=== PATIENT | female | born 1955 ===

== ENCOUNTER 2024-08-23 18:37 | Outpatient (BNV) | payer MEDICARE, MEDICAID, SELFPAY | END 2024-10-28 09:50 | PROVIDERS: Admitting Provider Social Worker; Visit Provider Radiology Diagnostic Radiology | DX: K59.00 Constipation, unspecified (principal) | CPT/HCPCS: 74018 ==

== ENCOUNTER 2024-08-23 18:37 | Inpatient (IN) | payer MEDICARE, MEDICAID, SELFPAY ==
--- NOTE | ~2024-08-23 | XR_ITS ---
EXAMINATION: XR ABDOMEN KUB CLINICAL INDICATION: ? impaction COMPARISON: None available. TECHNIQUE: AP view of the abdomen. FINDINGS: Abundant stool throughout the large intestine. No intestinal dilatation. No air-fluid levels. Patient's large body habitus. Mild S-shaped curvature of the thoracolumbar spine XR/XR KUB IMPRESSION: Abundant stool without intestinal obstruction pattern. Electronically signed by: Audie Uribe MD 10/28/2024 10:02 AM EDT
--- NOTE | ~2024-08-23 | CT_ITS ---
EXAMINATION: CT HEAD WITHOUT IV CONTRAST HISTORY: cognitive decline. TECHNIQUE: Unenhanced helical CT of the head was performed per standard departmental protocol. Coronal and sagittal reformats of the head were also evaluated. One or more of the following techniques was used for dose reduction: Automated exposure control, adjustment of the mA and/or kV according to patient size, use of iterative reconstruction technique. DLP: 711 mGy-cm COMPARISON: There are no prior studies for comparison. FINDINGS: BRAIN: There is mild prominence of the jugular system and cortical sulci, consistent with atrophy, appropriate for the patient's age. Willard/white differentiation is normal. There is no hydrocephalus. There is no mass effect or midline shift. No intra- or extra-axial fluid collections are identified. SINUSES: The visualized paranasal sinuses are clear. The mastoid air cells and middle ear cavities are well pneumatized. ORBITS: The visualized orbits are unremarkable. BONES/SOFT TISSUES: The extracranial soft tissues are unremarkable. The calvarium is intact. No suspicious lytic or sclerotic lesions. CT/CT head/brain wo IV con IMPRESSION: No acute intracranial abnormality. Electronically signed by: Cj Colunga MD 08/25/2024 12:12 PM [facility]
[2024-08-23 19:27] VITALS: BP 132/75; PULSE 72; RESP 18; TEMP 208.9; TEMP 98.3; O2SAT 96
[2024-08-23 19:29] VITALS: BMI 20.3
--- OUTSIDE RECORDS SUMMARY | 2024-08-23 20:06 | XMS_ITS | Encounter Summary ---
Author Organization [employer] Address [address] [facility] 7t [place] [address] Care Team Providers Care Swimmer Name Role Phone Stan Rodriguez DNP Primary Care Provider Perlita Pryor Unavailable Unavailable Encounter Details Date Type Department Care Team (Late st Contact Info) Description 03/18/2024 Telephone [facility] [address] [facility] [address] [place] [address] Stan Rodriguez DNP [address] [place] [address] Social History Tobacco Use Types Packs/Day Years Used Date Smoking Tobacco: Never Passive Smoke Exposure: Never Smokeless Tobacco: Never Comments:02/17/23 Comments Unknown Sex and Gender Information Value Date Recorded Sex Assigned at Female 09/16/2022 3:00 PM EDT Legal Sex Female 6:21 PM EDT Gender Identity Female 05/09/2022 9:08 PM EST Sexual Orientation Straight 05/09/2022 9: 08 PM EST documented as of this encounter Miscellaneous Notes * Telephone Encounter - Monica Lynn RN - 03/18/2024 3:44 PM EDT I spoke with pts daughter she states that mom has an area around her belly button that is red, has white discharge coming from it and has an an odor. Denies fever. Has not tried abx cream for it. Daughter states she doesn't think it has been there long but mother states its been like that for 3 years. Also daughter states that she thinks mom has Hemmheroid. She states there is often blood in the toilet, mom complains of rectal burning and this has gone on for quite some time. Daughter denies use of prep H or similar products. Appt made to be seen * Telephone Encounter - Suyapa Finch - 03/18/2024 3:27 PM EDT Daughter milagro calling for the mom as pt has an infection in the belly button red oozing white stuff , odor and is burning and is also blood on the toilet seat from rectal area. Daughter does havethe mom with her to give verbal permission to speak to us. Call back # [phone] documented in this encounter Plan of Treatment Not on file documented as of this encounter Visit Diagnoses Not on filedocumented in this encounter Care Teams Swimmer Relationship Specialty Start Date End Date Stan Rodriguez DNP [address] [place] [address] PCP - General Family Medicine 04/25/22 Perlita Pryor LLD [address] [place] [address] Dentist 04/25/22 Jenifer Magallaens- [employer] vegetable ii farmworker 04/19/22 [facility] 04/19/22 documented as of this encounter
--- OUTSIDE RECORDS SUMMARY | 2024-08-23 20:06 | XMS_ITS | Encounter Summary ---
Author Organization [employer] Address [address] [place] [address] 7 [place] [address] Care Team Providers Care Manager Women Name Role Phone Stan Rodriguez DNP Primary Care Provider Perlita Pryor Unavailable Unavailable Encounter Details Date Type Department Care Team (Late st Contact Info) Description 09/14/2023 Telephone [facility] [address] [facility] [address] [place] [id number] Stan Rodriguez DNP [address] [place] [address] Social History Tobacco Use Types Packs/Day Years [...] encounter Miscellaneous Notes * Telephone Encounter - True Jewell - 09/14/2023 1:28 PM EDT Provider informs they received the referral we sent and contacted the patient, but she did not wantto schedule anything with them. They wanted to call us to let her PCP know she declined seeing their practice documented in this encounter Plan of Treatment Not on file documented as of this encounter Visit Diagnoses Not on filedocumented in this encounter Care Teams Manager Women Relationship Specialty Start Date End Date Stan Rodriguez DNP [address] [place] [address] PCP - General Family Medicine 04/25/22 Perlita Pryor LLD [address] [place] [address] Dentist 04/25/22 Jenifer Magallanes- [employer] environmental services worker 04/19/22 [facility] 04/19/22 documented as of this encounter
--- OUTSIDE RECORDS SUMMARY | 2024-08-23 20:06 | XMS_ITS | Clinical Summary ---
Author Organization [employer] Address [address] [facility] 7[address] [place] [address] Care Team Providers Care Protection Manager Name Role Phone Stan Rodriguez DNP Primary Care Provider Perlita Pryor Unavailable Unavailable Allergies Active Allergy Reactions Criticality Noted Date Comments Erythromycin Nausea And Vomiting 07/06/2012 Other reaction(s): Nausea, Vomiting, Diarrhea Meperidine 06/30/2017 Morphine 06/30/2017 Sulfamethoxazole-Trimet hoprim Rash Low 07/11/2012 Other reaction(s): Skin Rashes, Hives, trouble breathing, Skin Rashes, Hives, trouble breathing Medications ARIPiprazole (Abilify) 10 MG tablet daily. 9 Active pravastatin (Pravachol) 40 MG tabletIndications:M ixed hyperlipidemia Take 1 tablet (40 mg) by mouth at bedtime. 90 tablet 1 4 Active levothyroxine (Synthroid, Levoxyl) 75 MCG tabletIndications:H ypothyroidism due to Katherine's thyroiditis Take 1 tablet (75 mcg) by mouth before breakfast. 90 tablet 1 4 Active benztropine (Cogentin) 1 MG tabletIndications:B ipolar disorder, current episode mixed, moderate (CMS/HCC) Take 1 tablet (1 mg) by mouth 2 times daily. 180 tablet 1 4 10/04/19 25 Active ARIPiprazole (Abilify) 10 MG tabletIndications:B ipolar disorder, current episode mixed, moderate (CMS/HCC) Take 1 tablet (10 mg) by mouth Once per day. 90 tablet 1 4 10/04/19 25 Active Active Problems Problem Noted Date Diagnosed Date Impaired glucose tolerance 07/29/2018 Overview (09/16/2022): Note: A1c is 5.8 Acquired hypothyroidism 10/14/2017 GERD without esophagitis 10/14/2017 Arthritis 11/14/2013 Overview (09/16/2022): Note: left Onychomycosis due to dermatophyte 11/14/2013 Bipolar disorder 10/12/2013 Overview (09/16/2022): Note: [employer] Vitamin D deficiency 07/04/2013 Malignant melanoma of skin 01/23/2013 Overview (09/16/2022): Note: dx 12/2012 Constipation 07/06/2012 Uterine leiomyoma 07/06/2012 Immunizations Name Administration Dates Next Due Influenza injectable quadriv alent IIV4 with preservative 05/17/2014 Influenza, IIV3, injectable 07/09/2012 Influenza, Unspecified 06/24/2013 Social History Tobacco Use Types Packs/Day Years Used Date Smoking Tobacco: Never Passive Smoke Exposure: Never Smokeless Tobacco: Never Tobacco Cessation:Counseling Given: Not Answered Comments:02/17/23 Depression Answer Date Recorded Patient Health Questionnaire-9 Score 23 04/06/2024 Patient Health Questionnaire-9 Score 23 04/06/2024 Last PHQ-9: Questionnaire Data Not on file 1 Depression Answer Date Recorded Patient Health Questionnaire-2 Score 5 04/06/2024 Comments Unknown Sex and Gender Information Value Date Recorded Sex Assigned at Female 09/16/2022 3:00 PM EDT Legal Sex Female 6:21 PM EDT Gender Identity Female 05/09/2022 9:08 PM EST Sexual Orientation Straight 05/09/2022 9: 08 PM EST Last Filed Vital Signs Vital Sign Reading Time Taken Comments Blood Pressure 118/72 04/05/2021 12:51 PM EDT Pulse 76 04/06/2024 1:08 PM EDT Temperature 36.4 ??C (97.6 ??F) 04/06/2024 1:08 PM ED T Respiratory Rate - - Oxygen Saturation 97% 04/06/2024 1:08 PM EDT Inhaled Oxygen Concentration - - Weight 44 kg (97 lb) 04/06/2024 1:08 PM EDT Height 153.7 cm (5' 0.5 ) 04/05/2021 12:51 PM ED T Body Mass Index 18.63 04/05/2021 12:51 PM EDT Plan of Treatment Health Maintenance Due Date Last Done Comments CT Colonography 1956 FIT DNA/Cologuard 1956 FIT 1956 FOBT 1956 SDOH Screening 1956 Sigmoidoscopy 1956 Derm Melanoma Skin Check 1956 Alcohol/Substance Use Screening 1968 Hepatitis C Screening 02/01/1974 Pneumococcal Vaccine: 50+ Years (1 of 1 - PCV) 02/01/2006 Zoster Vaccines (1 of 2) 02/01/2006 Mammogram 10/22/2019 10/21/2017 Colonoscopy 01/24/2023 01/24/2013 Colorectal Cancer Screening 01/24/2023 COVID-19 Vaccine (2 - 2023-2 5 season) 2024 12/05/2020 Influenza Vaccine (#1) 2024 4, 06/24/2013, 07/09/2012 Depression Monitoring (PHQ-9) 10/05/2024, 04/06/2024 Depression Screening 04/06/2025 04/06/2024, 04/06/2024 Tobacco Screening 04/11/2025 04/11/2024 DTaP/Tdap/Td Vaccines (2 - T d or Tdap) 10/15/2027 10/14/2017 RSV Patients and Patients Aged 60 years or older (1 - 1-dose 75+ series) 02/01/2031 HIB Vaccines Aged Out No longer eligi ble based on patient's age to complete this topic HPV Vaccines Aged Out No longer eligi ble based on patient's age to complete this topic Hepatitis A Vaccines Aged Out No long er eligible based on patient's age to complete this topic Hepatitis B Vaccines Aged Out No long er eligible based on patient's age to complete this topic IPV Vaccines Aged Out No longer eligi ble based on patient's age to complete this topic Meningococcal Vaccine Aged Out No dg marcelo eligible based on patient's age to complete this topic RSV under 20 months Aged Out No longe r eligible based on patient's age to complete this topic Rotavirus Vaccines Aged Out No longer eligible based on patient's age to complete this topic Procedures Procedure Name Priority Date/Time Associated Diagnosis Comments COLONOSCOPY Routine 01/24/2013 12:00 AM EDT from Last 3 Months or Most Recently Relevant to Health Maintenance Results * Colonoscopy (01/24/2013 12:00 AM EDT) Anatomical Region Laterality Modality Endoscopy 01/24/2013 Narrative 01/24/2013 12:00 AM EDT Refer to the Notes tab for result details Legacy Procedure: Colonoscopy Procedure Note Provider, Natalie, - 09/20/2022 Refer to the Notes tab for result details Legacy Procedure: Colonoscopy Historical Provider ENDOSCOPY PROCEDURE ORDER CLOTILDE Final Result from Last 3 Months or Most Recently Relevant to Health Maintenance Insurance [facility] Care Teams Protection Manager Relationship Specialty Start Date End Date Stan Rodriguez DNP [address] [place] [address] PCP - General Family Medicine 04/25/22 Perlita Pryor LLD [address] [place] [address] Dentist 04/25/22 Jenifer Magallanes- [employer] unit control worker 04/19/22 [facility] 04/19/22
--- NOTE | 2024-08-23 20:19 | PC.NURSE ---
Pravastin 40 mg not available, patient wants her meds now so that she can go to bed, 2 tablets of pravastatin 20 mg administered to make total dose of 40 mg.
--- NOTE | 2024-08-23 21:07 | PC.NURSE ---
Admission Note Anita Pendleton, 69 years old woman was presented to [facility] ED with chief complaint of failure to thrive after she was found covered in vomit and feces in her apartment. The patient is non-adherent to her medication.? The patient has a medical and psychiatric history of hyperlipidemia, hypothyroidism, and Bipolar I with psychotic features. The patient is full code and her allergy list is updated. Anita arrived at our unit in a stretcher at 1905 on 08/23/24, CV, with an admitting diagnosis of Bipolar I disorder. The patient is alert and oriented x 2,? self and place, pleasant, compliant with the admission process.? Ambulates independently, No history of fall, Denied SI/HI/AVH, endorses depression 10 and anxiety /10,? Vital sign WNL, no visible skin issues observed,? Meds rec completed/approved/MAR active/takes meds whole, reported her elimination intact, last BM was on 08/22/24. Per hospital report independent of ADL but needs some cueing. She is occasionally incontinent of the bladder and wears pull ups. Speech is slow with some difficulty in articulation, Labs are unremarkable, UA negative, Utox negative, treatment plan/safety tool/ release paper all signed and filed, unit orientation completed, contraband searched, patient contracted for the safety, patient is being observed on 5 minute safety check as ordered.?
[2024-08-23 21:32] LABS: Alanine Aminotransferase 18 U/L (0-31); Albumin Level 3.9 g/dL (3.5-5.0); Alkaline Phosphatase 58 U/L (39-117); Anion Gap 14 (12-20); Aspartate Amino Transferase 25 U/L (5-31); Blood Urea Nitrogen 16 mg/dL (9-16); Calcium 9.6 mg/dL (8.4-10.2); Carbon Dioxide 24 mmol/L (22-29); Chloride 107 mmol/L (96-108); Creatinine Clr Calc Pharmacy 62.2; Estimated Glomerular Filt Rate > 60; Potassium 3.8 mmol/L (3.3-5.1); Sodium 141 mmol/L (135-145); Total Protein 7.3 g/dL (6.5-8.0)
[2024-08-24 08:00] VITALS: BP 109/60; PULSE 72; RESP 18; TEMP 36.8; O2SAT 96
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
[2024-08-24 09:42] LABS: Cholesterol 235 mg/dL (<200); HDL Cholesterol 74 mg/dL (>40); Triglycerides 28 mg/dL (<150)
--- NOTE | 2024-08-24 15:06 | P.CONHOSP_ITS ---
History of Present Illness Data of Consult Service Date: 08/24/24 Primary Care Provider: Unknown Physician HPI Reason for consult: Admission H&P Pt is a 69-year-old female with a PMH significant for?HLD, hypothyroidism, unspecified dementia, and bipolar with psychotic features who is admitted to [facility] for worsening forgetfulness and inability to take care of her ADLs. Pt was found by [facility] covered in feces and vomit and with her house in disarray. Medical consult for admission H&P. Pt reports is having some pain in her gums most notably while eating. Otherwise has no acute medical complaints Denies fever, chills, N/V/D, or abd pain. No SOB or difficulty breathing. Denies chest pain/pressure, or palpitations. Labs reviewed, significant for elevated glucose of 152 and mildly elevated cholesterol. Vitals stable and WNL. Review of Systems 2 Review of Systems: Negative except for that which is stated in the HPI. ON LICENSE OF [facility] Medical History (Updated 08/25/24 @ 02:23 by ABRAM Zamudio) Hypothyroid HTN (hypertension) Social History Household Members: None Housing: Apartment Do you presently have visiting nurse or other home services: No Patient Tobacco Use Status: Never used Tobacco e-Cigarette/Vaping Use: Never Used Use of substances other than those prescribed or required for medical reasons: Yes Currently Displaying Signs/Symptoms of Drug Intoxication Withdrawal: No Have you been hit, kicked, punched, or otherwise hurt by someone within the past year? If so, by whom?: No Do you feel safe in your current relationship?: No Is there a partner from a previous relationship who is making you feel unsafe now?: No Advance Directives: No Advance Directives Information Provided: No Do you have thoughts of harming others: None Do you have a plan to hurt others: No Plan Recently lost weight without trying: No Nutrition Risks: No Nutritional Risk Patient : No : No service: No Sexual orientation: Straight/Heterosexual Meds Allergies Allergy/AdvReac Type Severity Reaction Status Date / Time meperidine [From Demerol] AdvReac Intermediate Rash Verified 08/23/24 19:34 morphine AdvReac Intermediate Rash Verified 08/23/24 19:35 Sulfa (Sulfonamide AdvReac Intermediate Rash Verified 08/23/24 19:36 Antibiotics) Active Medications: Current Medications Acetaminophen (Acetaminophen 325 Mg Tablet) 650 mg PO Q6H PRN PRN Reason: Headache/Pain, Scale 1-10 Last Admin: 08/24/24 08:36 Dose: 650 mg Al Hydroxide/Mg Hydroxide (Magnesium Hydrox/Alum Hydrox 30 Ml Oral.Susp) 30 ml PO Q6H PRN PRN Reason: Heartburn/Nausea Aripiprazole (Aripiprazole 10 Mg Tablet) 10 mg PO DAILY [facility] Last Admin: 08/24/24 08:37 Dose: 10 mg Lamotrigine (Lamotrigine 25 Mg Tablet) 25 mg PO DAILY [facility] Last Admin: 08/24/24 08:36 Dose: 25 mg Levothyroxine Sodium (Levothyroxine Sodium 75 Mcg Tablet) 75 mcg PO DAILY@629 [facility] Last Admin: 08/24/24 05:34 Dose: 75 mcg Magnesium Hydroxide (Milk Of Magnesia 30 Ml Oral.Susp) 30 ml PO DAILY PRN PRN Reason: Constipation Olanzapine (Olanzapine Odt 10 Mg Tab.Rapdis) 10 mg TRANSLINGU DAILY PRN PRN Reason: Agitation Pravastatin Sodium (Pravastatin Sodium 40 Mg Tablet) 40 mg PO BEDTIME [facility] Last Admin: 08/23/24 20:19 Dose: 40 mg Trazodone HCl (Trazodone Hcl 50 Mg Tablet) 50 mg PO BEDTIME MRX1 PRN PRN Reason: Insomnia Vitamin D (Cholecalciferol (Vitamin D3) 25 Mcg Tablet) 50 mcg PO DAILY [facility] Last Admin: 08/24/24 08:36 Dose: 50 mcg Home Medications ?Medication ?Instructions ?Recorded ?Confirmed ?Last Taken ?Type aripiprazole 10 mg tablet 10 mg PO DAILY 08/23/24 08/23/24 Unknown History cholecalciferol (vitamin D3) 50 50 mcg PO DAILY 08/23/24 08/23/24 Unknown History mcg (2,000 unit) tablet lamotrigine 25 mg tablet 25 mg PO DAILY 08/23/24 08/23/24 Unknown History levothyroxine 75 mcg tablet 75 mcg PO DAILY@0630 08/23/24 08/23/24 Unknown History olanzapine 10 mg disintegrating 10 mg PO DAILY PRN Agitation 08/23/24 08/23/24 Unknown History tablet pravastatin 40 mg tablet 40 mg PO BEDTIME 08/23/24 08/23/24 Unknown History Physical Exam 2 Vital Signs and Narrative: Vital Signs: Last Vital Signs Temp 98.2 F 08/24/24 08:00 Pulse 72 08/24/24 08:00 Resp 18 08/24/24 08:00 BP 109/60 08/24/24 08:00 Pulse Ox 96 08/24/24 08:00 O2 Del Method Room Air 08/24/24 08:00 BMI result Body Mass Index 20.3 General: AOx2, no acute distress Mouth: Gums erythematous in multiple locations. No evens bleeding or signs of infection or abscess. Resp: CTA bilaterally CVS: S1, S2, RRR GI: +BS, NT, no distention Skin: Warm, dry Neuro: Cranial nerves II-XII grossly intact bilaterally. Motor grossly intact bilaterally Extremities: No edema Psych: Pleasantly confused, cooperative. Results Labs 08/23/24 21:12 Labs: Laboratory Results - last 24 hr 08/23/24 08/24/24 21:12 09:14 Anion Gap 14 Estim Creat Clear Calc 62.2 Estimated GFR > 60 Random Glucose 152 H Calcium 9.6 Total Bilirubin 0.5 AST 25 ALT 18 Alkaline Phosphatase 58 Total Protein 7.3 Albumin 3.9 Triglycerides 28 Cholesterol 235 H LDL Cholesterol, Calc 156 H HDL Cholesterol 74 Assessment and Plan (1) Medical clearance for psychiatric admission: Status: Acute Plan Pt is a 69-year-old female with a PMH significant for?HLD, hypothyroidism, unspecified dementia, and bipolar with psychotic features who is admitted to [facility] for worsening forgetfulness and inability to take care of her ADLs. Pt was found by [facility] covered in feces and vomit and with her house in disarray. Medical consult for admission H&P. Mood disorder Plan as per psychiatry Gingivitis Pt has apparently not been able to take care of self or perform ADLs Encourage oral care, including brushing twice a day and flossing at least once a day Magic mouthwash prn Follow up outpatient with dentist HLD Continue statin Hypothyroidism Continue levothyroxine Thank you for allowing us to participate in the care of this patient. Signing off at this time. Please re-consult if any acute complaints or issues arise.
[2024-08-24 20:00] VITALS: BP 115/65; PULSE 72; RESP 17; TEMP 36.6; O2SAT 98
[2024-08-25 08:00] VITALS: BP 119/63; PULSE 86; RESP 16; TEMP 36.2; O2SAT 99
[2024-08-25 13:30] VITALS: BMI 20.6
[2024-08-25 20:00] VITALS: BP 119/56; PULSE 74; RESP 16; TEMP 36.2; O2SAT 99
--- NOTE | 2024-08-25 21:01 | P.PNPSI_ITS ---
Subjective Subjective Date of Service: 08/25/24 Reason For Visit: bipolar 1 disorder current or most recent epi Subjective Notes: Conditional Voluntary Interim History: Pt slept through the night. She has been taking medications as prescribed. She questions why this commercial loan underwriter has to meet with her daily, as she states she has no concerns and is doing well. She did have head CT which shows atrophy. pending MOCA She denies SI/HI. She also denies visual or auditory hallucinations, but does at times appear internally preoccupied, with some thought blocking. Review of Systems Review of Systems Pt denies chest pain. No abdominal pain. No diarrhea or constipation. Mental Status Exam Mental Status Exam Narrative: Appearance: constricted affect, in NAD, malnourished, very poor dental hygiene (unbothered by it). Behavior: somewhat guarded, Psychomotor: some retardation Speech: mostly clear, delayed response, minimally spontaneous TP: poverty of thought TC: agreeing with not being able to care for herself. Mood: good Affect:constricted SI: none HI: none VH/AH: denies but may be internally preoccupied Delusions: no overt delusional content noted or reported Insight/judgment: impaired x 2. Memory/cog: alert, oriented x 3. pending MOCA/ACL Diagnostics Vital Signs (24Hr): Vital Signs - 24 hr 08/25/24 08:00 Temperature 97.1 F Pulse Rate 86 Respiratory Rate 16 Blood Pressure 119/63 Pulse Oximetry 99 Oxygen Delivery Method Room Air BMI result Body Mass Index 20.6 Labs 08/23/24 21:12 Labs: Laboratory Results - last 48 hr 08/23/24 08/24/24 21:12 09:14 Sodium 141 Potassium 3.8 Chloride 107 Carbon Dioxide 24 Anion Gap 14 BUN 16 Creatinine 0.59 Estim Creat Clear Calc 62.2 Estimated GFR > 60 Random Glucose 152 H Calcium 9.6 Total Bilirubin 0.5 AST 25 ALT 18 Alkaline Phosphatase 58 Total Protein 7.3 Albumin 3.9 Triglycerides 28 Cholesterol 235 H LDL Cholesterol, Calc 156 H HDL Cholesterol 74 Imaging Radiology Impressions: ITS Impressions Head CT 08/25/24 11:33 IMPRESSION: No acute intracranial abnormality. Electronically signed by: Cj Colunga MD 08/25/2024 12:12 [place] [facility] [place] Medications Current Medications Acetaminophen (Acetaminophen 325 Mg Tablet) 650 mg PO Q6H PRN PRN Reason: Headache/Pain, Scale 1-10 Last Admin: 08/24/24 08:36 Dose: 650 mg Al Hydroxide/Mg Hydroxide (Magnesium Hydrox/Alum Hydrox 30 Ml Oral.Susp) 30 ml PO Q6H PRN PRN Reason: Heartburn/Nausea Aripiprazole (Aripiprazole 10 Mg Tablet) 10 mg PO DAILY [facility] Last Admin: 08/25/24 08:48 Dose: 10 mg Lamotrigine (Lamotrigine 25 Mg Tablet) 25 mg PO DAILY [facility] Last Admin: 08/25/24 08:48 Dose: 25 mg Levothyroxine Sodium (Levothyroxine Sodium 75 Mcg Tablet) 75 mcg PO DAILY@0630 [facility] Last Admin: 08/25/24 06:26 Dose: 75 mcg Lidocaine/Diphenhydr/Alum/Mg/Simeth (Mag&Al/Sim/Diphenhyd/Lidocaine 10 Ml Oral.Susp) 10 ml PO Q6H PRN; Protocol PRN Reason: Painful Gums Magnesium Hydroxide (Milk Of Magnesia 30 Ml Oral.Susp) 30 ml PO DAILY PRN PRN Reason: Constipation Olanzapine (Olanzapine Odt 10 Mg Tab.Rapdis) 5 mg TRANSLINGU Q6H PRN PRN Reason: Agitation Pravastatin Sodium (Pravastatin Sodium 40 Mg Tablet) 40 mg PO BEDTIME [facility] Last Admin: 08/25/24 20:33 Dose: 40 mg Trazodone HCl (Trazodone Hcl 50 Mg Tablet) 50 mg PO BEDTIME MRX1 PRN PRN Reason: Insomnia Last Admin: 08/25/24 20:33 Dose: 50 mg Vitamin D (Cholecalciferol (Vitamin D3) 25 Mcg Tablet) 50 mcg PO DAILY [facility] Last Admin: 08/25/24 08:48 Dose: 50 mcg Allergies Allergies Allergy/AdvReac Type Severity Reaction Status Date / Time meperidine [From Demerol] AdvReac Intermediate Rash Verified 08/23/24 19:34 morphine AdvReac Intermediate Rash Verified 08/23/24 19:35 Sulfa (Sulfonamide AdvReac Intermediate Rash Verified 08/23/24 19:36 Antibiotics) Assessment & Plan Assessment & Plan (1) Schizoaffective disorder: Status: Acute Code(s): F25.9 - Schizoaffective disorder, unspecified Plan Ms. Thomas is a 69 year-old woman with hx of Bipolar Disorder, she currently presents with several symptoms suggestive of negative symptoms seem usually in schizoaffective disorder including constricted affect, abulia (some acknowledgment that she needed to initiate certain activities like going to dentist but still not doing so for unclear reasons). No overt paranoid delusions, her delayed response may be signs of thought blocking and underlying psychosis. She is in agreement to receive treatment and complete work up to also assess her memory and cognition. We discussed restarting abilify, which was started while she was in the ED- will titrate dose. 08/[address] shows atrophy. pending MOCA/ACL. continue abilify but may increase and add low dose ativan. Reason for continued inpatient stay Substantial Risk for: inability to function Time Spent With Patient Time: Total time managing care of this patient today ____ minutes.
[2024-08-26] MEDS: Mag&Al/Sim/Diphenhyd/Lidocaine 10 ML ORAL.SUSP PO ×2 (06:03→13:38)
[2024-08-26 08:00] VITALS: BP 107/55; PULSE 88; RESP 16; TEMP 36.9; O2SAT 100
[2024-08-26 10:51] LABS: Hemoglobin A1C 115.4003 umol/L; Total Hemoglobin (HGBA1C) 3371.0961 umol/L
[2024-08-26 11:33] LABS: Folate 15.9 ng/mL (> or = 4.0); Vitamin B12 1235 pg/mL (200-900)
--- NOTE | 2024-08-26 16:59 | P.PNPSI_ITS ---
Subjective Subjective Date of Service: 08/26/24 Reason For Visit: bipolar 1 disorder current or most recent epi Subjective Notes: Conditional Voluntary Interim History: Pt slept through the night. She has been taking medications as prescribed. She questions why this field underwriter has to meet with her daily, as she states she has no concerns and is doing well. She did have head CT which shows atrophy. pending MOCA She denies SI/HI. She also denies visual or auditory hallucinations, but does at times appear internally preoccupied, with some thought blocking. Review of Systems Review of Systems Pt denies chest pain. No abdominal pain. No diarrhea or constipation. Mental Status Exam Mental Status Exam Narrative: Appearance: constricted affect, in NAD, malnourished, very poor dental hygiene (unbothered by it). Behavior: somewhat guarded, Psychomotor: some retardation Speech: mostly clear, delayed response, minimally spontaneous TP: poverty of thought TC: agreeing with not being able to care for herself. Mood: good Affect:constricted SI: none HI: none VH/AH: denies but may be internally preoccupied Delusions: no overt delusional content noted or reported Insight/judgment: impaired x 2. Memory/cog: alert, oriented x 3. pending MOCA/ACL Diagnostics Vital Signs (24Hr): Vital Signs - 24 hr 08/25/24 20:00 08/26/24 08:00 Temperature 97.1 F 98.4 F Pulse Rate 74 88 Respiratory Rate 16 16 Blood Pressure 119/56 L 107/55 L Pulse Oximetry 99 100 Oxygen Delivery Method Room Air Room Air BMI result Body Mass Index 20.6 Labs 08/23/24 21:12 Labs: Laboratory Results - last 48 hr 08/26/24 10:35 Estimat Average Glucose 105 Hemoglobin A1c % 5.3 Vitamin B12 1235 H Folate 15.9 TSH 1.53 Imaging Radiology Impressions: ITS Impressions Head CT 08/25/24 11:33 IMPRESSION: No acute intracranial abnormality. Electronically signed by: Cj Colunga MD 08/25/2024 12:12 PM [facility] Medications Medications Current Medications Acetaminophen (Acetaminophen 325 Mg Tablet) 650 mg PO Q6H PRN PRN Reason: Headache/Pain, Scale 1-10 Last Admin: 08/24/24 08:36 Dose: 650 mg Al Hydroxide/Mg Hydroxide (Magnesium Hydrox/Alum Hydrox 30 Ml Oral.Susp) 30 ml PO Q6H PRN PRN Reason: Heartburn/Nausea Aripiprazole (Aripiprazole 10 Mg Tablet) 10 mg PO DAILY [facility] Last Admin: 08/26/24 08:13 Dose: 10 mg Lamotrigine (Lamotrigine 25 Mg Tablet) 25 mg PO DAILY [facility] Last Admin: 08/26/24 08:13 Dose: 25 mg Levothyroxine Sodium (Levothyroxine Sodium 75 Mcg Tablet) 75 mcg PO DAILY@0630 [facility] Last Admin: 08/26/24 06:01 Dose: 75 mcg Lidocaine/Diphenhydr/Alum/Mg/Simeth (Mag&Al/Sim/Diphenhyd/Lidocaine 10 Ml Oral.Susp) 10 ml PO Q6H PRN; Protocol PRN Reason: Painful Gums Last Admin: 08/26/24 13:38 Dose: 10 ml Magnesium Hydroxide (Milk Of Magnesia 30 Ml Oral.Susp) 30 ml PO DAILY PRN PRN Reason: Constipation Olanzapine (Olanzapine Odt 10 Mg Tab.Rapdis) 5 mg TRANSLINGU Q6H PRN PRN Reason: Agitation Pravastatin Sodium (Pravastatin Sodium 40 Mg Tablet) 40 mg PO BEDTIME [facility] Last Admin: 08/25/24 20:33 Dose: 40 mg Trazodone HCl (Trazodone Hcl 50 Mg Tablet) 50 mg PO BEDTIME MRX1 PRN PRN Reason: Insomnia Last Admin: 08/25/24 20:33 Dose: 50 mg Vitamin D (Cholecalciferol (Vitamin D3) 25 Mcg Tablet) 50 mcg PO DAILY [facility] Last Admin: 08/26/24 08:13 Dose: 50 mcg Allergies Allergies Allergy/AdvReac Type Severity Reaction Status Date / Time meperidine [From Demerol] AdvReac Intermediate Rash Verified 08/23/24 19:34 morphine AdvReac Intermediate Rash Verified 08/23/24 19:35 Sulfa (Sulfonamide AdvReac Intermediate Rash Verified 08/23/24 19:36 Antibiotics) Assessment & Plan Assessment & Plan (1) Schizoaffective disorder: Status: Acute Code(s): F25.9 - Schizoaffective disorder, unspecified Plan Ms. Thomas is a 69 year-old woman with hx of Bipolar Disorder, she currently presents with several symptoms suggestive of negative symptoms seem usually in schizoaffective disorder including constricted affect, abulia (some acknowledgment that she needed to initiate certain activities like going to dentist but still not doing so for unclear reasons). No overt paranoid delusions, her delayed response may be signs of thought blocking and underlying psychosis. She is in agreement to receive treatment and complete work up to also assess her memory and cognition. We discussed restarting abilify, which was started while she was in the ED- will titrate dose. 08/[address] shows atrophy. pending MOCA/ACL. continue abilify but may increase and add low dose ativan. 08/26 will increased abilify to 15mg po daily. will add low dose ativan- wonder if it helps with delayed response, and some staring. Reason for continued inpatient stay Substantial Risk for: inability to function Time Spent With Patient Time: Total time managing care of this patient today ____ minutes.
[2024-08-26 20:00] VITALS: BP 125/59; PULSE 85; RESP 16; TEMP 37.2; O2SAT 98
[2024-08-27] VITALS (9 sets, daily range): BP systolic 103–116; BP diastolic 53–59; PULSE 88–108; RESP 20; TEMP 36.8–39.8; O2SAT 93–97
[2024-08-27 10:04] LABS: MANUAL DIFF FLAG NO
[2024-08-27 10:19] LABS: Hematocrit 33.7 % (37.0-47.0); Hemoglobin 11.8 g/dl (12.0-16.0); Imm Gran Abs Auto 0.03 X10*3/uL (0.00-0.03); Imm Gran Pct Auto 0.4 % (0.0-0.4); Lymphocytes Absolute Auto 0.5 X10*3/uL (1.2-4.9); Mean Corpuscular HGB Conc 35.0 g/dl (31.0-35.0); Mean Corpuscular Hemoglobin 32.2 pg (27.0-33.0); Mean Corpuscular Volume 91.8 fL (80.0-98.0); NRBC Abs Auto 0.000 X10*3/uL (0.0-0.012); NRBC Pct Auto 0.0 /100WBC (0.0-0.2); Platelet Count 224 X10*3/uL (160-400); Red Blood Count 3.67 X10*6/uL (4.20-5.50); White Blood Count 7.1 X10*3/uL (4.8-10.8)
[2024-08-27 10:38] LABS: Appearance Urine Clear; Glucose Urine UA Negative (Negative); PH 5.0 (5.0-9.0); Specific Gravity - Urine 1.025 (1.005-1.025); UMIC TRIGGER UACC YES
[2024-08-27 11:34] LABS: Chlamydia pneumoniae PCR Not Detected (Not Detect.); Coronavirus 229E PCR Not Detected (Not Detect.); Coronavirus HKU1 PCR Not Detected (Not Detect.); Coronavirus NL63 PCR Not Detected (Not Detect.); Coronavirus OC43 PCR Not Detected (Not Detect.); RSV PCR Not Detected (Not Detect.); Rhino/Enterovirus PCR Not Detected (Not Detect.)
[2024-08-27 11:36] LABS: SARS-CoV-2 PCR Not Detected (Not Detect.)
--- NOTE | 2024-08-27 11:59 | P.EN_ITS ---
Event Note Date of Service: 08/27/24 Event Note: Pt is a 69-year-old female admitted to [facility] with hospitalist consult for fever and URI symptoms Pt tested positive for influenza type A. The pt is not hypoxic, satting at 97% on RA. UA negative for UTI. Additional labs unremarkable. pt will be treated with Tamiflu 75 mg b.i.d. x5 days. Pt should be placed in isolation and droplet precautions should be enforced. Pt otherwise can be treated symptomatically with Tylenol for fever/ mild pain, and guaife nesin for cough. Encourage p.o. hydration. Time Spent With Patient Time: Total time managing care of this patient today ____ minutes.
[2024-08-27 16:51] LABS: Resp Syncy Virus RNA Qual PCR NEGATIVE (Negative); SARS COV2 PCR INHOUSE NEGATIVE (Negative)
[2024-08-27] MEDS: guaiFENesin DM 200/20/10 ML 10 ML SYRUP PO (16:56)
--- NOTE | 2024-08-27 17:27 | HO.PSYCHPN ---
Subjective Subjective Date of Service: 08/27/24 Reason For Visit: bipolar 1 disorder current or most recent epi Interim History: c/o anxiety and insomnia, agrees to increase HS ativan. also c/o sore throat and urinary Sx. agreeable to respiratory panel and CBC. per RN, T102. medical consult placed, labs return with influenza A POS. per staff, shaky and flushed today. URI Sx, UTI Sx. Mental Status Exam Mental Status Exam Narrative: Appearance: constricted affect, in NAD, malnourished, very poor dental hygiene (unbothered by it). Behavior: somewhat guarded, Psychomotor: some retardation Speech: mostly clear, delayed response, minimally spontaneous TP: poverty of thought TC: agreeing with not being able to care for herself. Mood: good Affect:constricted SI: none HI: none VH/AH: denies but may be internally preoccupied Delusions: no overt delusional content noted or reported Insight/judgment: impaired x 2. Memory/cog: alert, oriented x 3. pending MOCA/ACL Diagnostics Vital Signs (24Hr): Vital Signs - 24 hr 08/26/24 20:00 08/27/24 08:41 08/27/24 09:45 Temperature 98.9 F 101.8 F H 102.2 F H Pulse Rate 85 108 H Respiratory Rate 16 20 Blood Pressure 125/59 L 116/59 L Pulse Oximetry 98 97 Oxygen Delivery Method Room Air Room Air 08/27/24 11:00 08/27/24 12:15 08/27/24 15:38 Temperature 98.3 F 98.3 F 100.1 F Pulse Rate Respiratory Rate Blood Pressure Pulse Oximetry Oxygen Delivery Method BMI result Body Mass Index 20.6 Labs 08/27/24 10:00 08/23/24 21:12 Labs: Laboratory Results - last 48 hr 08/26/24 08/27/24 08/27/24 10:35 08:45 09:47 WBC RBC Hgb Hct MCV MCH MCHC RDW Plt Count MPV Immature Gran % (Auto) Neut % (Auto) Lymph % (Auto) [place] % (Auto) Eos % (Auto) Baso % (Auto) Lymph # (Auto) [place] # (Auto) Eos # (Auto) Baso # (Auto) Abs Immat Gran (auto) Absolute Neuts (auto) Absolute Nucleated RBC Nucleated RBC % (auto) Estimat Average Glucose 105 Hemoglobin A1c % 5.3 Vitamin B12 1235 H Folate 15.9 TSH 1.53 Urine Color Yellow Urine Appearance Clear Urine pH 5.0 Ur Specific [place] 1.025 Urine Protein Trace Urine Glucose (UA) Negative Urine Ketones Negative Urine Blood Small (1+) H Urine Nitrite Negative Ur Leukocyte Esterase Trace H Urine RBC 0-2 Urine WBC 0-5 Ur Squamous Epith Cells 0-2 Urine Bacteria None Seen Hyaline Casts 3-5 Respiratory Panel Parker See Note Adenovirus (Rapid PCR) Not Detected B.pert (TEM-PCR) Not Detected B.parapertussis DNA PCR Not Detected C. pneumoniae DNA (PCR) Not Detected Coronavirus OC43 (PCR) Not Detected Coronavirus HKU1 (PCR) Not Detected Coronavirus 229E (PCR) Not Detected Coronavirus NL63 (PCR) Not Detected Human Metapneumovir PCR Not Detected Influenza A (RT-PCR) Detected A Influenza Type A (PCR) Influenza B (RT-PCR) Not Detected Influenza Type B (PCR) M. pneumoniae (PCR) Not Detected Parainfluenza 1 (PCR) Not Detected Parainfluenza 2 (PCR) Not Detected Parainfluenza 3 (PCR) Not Detected Parainfluenza 4 (PCR) Not Detected RSV (PCR) Not Detected RSV RNA Qual (PCR) Entero/Rhino (PCR) Not Detected SARS-CoV-2 RNA (RT-PCR) Not Detected 08/27/24 08/27/24 10:00 15:16 WBC 7.1 RBC 3.67 L Hgb 11.8 L Hct 33.7 L MCV 91.8 MCH 32.2 MCHC 35.0 RDW 14.0 Plt Count 224 MPV 10.4 Immature Gran % (Auto) 0.4 Neut % (Auto) 81.4 H Lymph % (Auto) 7.5 L [place] % (Auto) 10.6 Eos % (Auto) 0.0 Baso % (Auto) 0.1 Lymph # (Auto) 0.5 L [place] # (Auto) 0.8 Eos # (Auto) 0.0 Baso # (Auto) 0.0 Abs Immat Gran (auto) 0.03 Absolute Neuts (auto) 5.8 Absolute Nucleated RBC 0.000 Nucleated RBC % (auto) 0.0 Estimat Average Glucose Hemoglobin A1c % Vitamin B12 Folate TSH Urine Color Urine Appearance Urine pH Ur Specific [place] Urine Protein Urine Glucose (UA) Urine Ketones Urine Blood Urine Nitrite Ur Leukocyte Esterase Urine RBC Urine WBC Ur Squamous Epith Cells Urine Bacteria Hyaline Casts Respiratory Panel [place] Adenovirus (Rapid PCR) B.pert (TEM-PCR) B.parapertussis DNA PCR C. pneumoniae DNA (PCR) Coronavirus OC43 (PCR) Coronavirus HKU1 (PCR) Coronavirus 229E (PCR) Coronavirus NL63 (PCR) Human Metapneumovir PCR Influenza A (RT-PCR) Influenza Type A (PCR) POSITIVE A Influenza B (RT-PCR) Influenza Type B (PCR) NEGATIVE M. pneumoniae (PCR) Parainfluenza 1 (PCR) Parainfluenza 2 (PCR) Parainfluenza 3 (PCR) Parainfluenza 4 (PCR) RSV (PCR) RSV RNA Qual (PCR) NEGATIVE Entero/Rhino (PCR) SARS-CoV-2 RNA (RT-PCR) NEGATIVE Imaging Radiology Impressions: ITS Impressions Head CT 08/25/24 11:33 IMPRESSION: No acute intracranial abnormality. Electronically signed by: Cj Colunga MD 08/25/2024 12:12 PM [facility] Medications Medications Current Medications Acetaminophen (Acetaminophen 325 Mg Tablet) 650 mg PO Q6H PRN PRN Reason: Headache/Pain, Scale 1-10 Last Admin: 08/27/24 15:36 Dose: 650 mg Al Hydroxide/Mg Hydroxide (Magnesium Hydrox/Alum Hydrox 30 Ml Oral.Susp) 30 ml PO Q6H PRN PRN Reason: Heartburn/Nausea Aripiprazole (Aripiprazole 15 Mg Tablet) 15 mg PO DAILY [facility] Last Admin: 08/27/24 08:52 Dose: 15 mg Benzocaine (Throat Lozenge, Medicated Lozenge) 1 lozenge MUCOUS MEM Q1H PRN PRN Reason: Sore Throat Guaifenesin/Dextromethorphan (Guaifenesin Dm 200/20/10 Ml 10 Ml Syrup) 10 ml PO Q4H PRN PRN Reason: Cough Last Admin: 08/27/24 16:56 Dose: 10 ml Lamotrigine (Lamotrigine 25 Mg Tablet) 25 mg PO DAILY [facility] Last Admin: 08/27/24 08:52 Dose: 25 mg Levothyroxine Sodium (Levothyroxine Sodium 75 Mcg Tablet) 75 mcg PO DAILY@0630 [facility] Last Admin: 08/27/24 06:09 Dose: 75 mcg Lidocaine/Diphenhydr/Alum/Mg/Simeth (Mag&Al/Sim/Diphenhyd/Lidocaine 10 Ml Oral.Susp) 10 ml PO Q6H PRN; Protocol PRN Reason: Painful Gums Last Admin: 08/26/24 13:38 Dose: 10 ml Lorazepam (Lorazepam 0.5 Mg Tablet) 0.5 mg PO DAILY [facility] Lorazepam (Lorazepam 1 Mg Tablet) 1 mg PO BEDTIME [facility] Magnesium Hydroxide (Milk Of Magnesia 30 Ml Oral.Susp) 30 ml PO DAILY PRN PRN Reason: Constipation Olanzapine (Olanzapine Odt 10 Mg Tab.Rapdis) 5 mg TRANSLINGU Q6H PRN PRN Reason: Agitation Oseltamivir Phosphate (Oseltamivir Phosphate 75 Mg Capsule) 75 mg PO Q12H [facility] Stop: 09/01/24 09:01 Pravastatin Sodium (Pravastatin Sodium 40 Mg Tablet) 40 mg PO BEDTIME [facility] Last Admin: 08/26/24 20:24 Dose: 40 mg Vitamin D (Cholecalciferol (Vitamin D3) 25 Mcg Tablet) 50 mcg PO DAILY [facility] Last Admin: 08/27/24 08:52 Dose: 50 mcg Allergies Allergies Allergy/AdvReac Type Severity Reaction Status Date / Time meperidine [From Demerol] AdvReac Intermediate Rash Verified 08/23/24 19:34 morphine AdvReac Intermediate Rash Verified 08/23/24 19:35 Sulfa (Sulfonamide AdvReac Intermediate Rash Verified 08/23/24 19:36 Antibiotics) Assessment & Plan Assessment & Plan (1) Schizoaffective disorder: Status: Acute Code(s): F25.9 - Schizoaffective disorder, unspecified Plan Ms. Thomas is a 69 year-old woman with hx of Bipolar Disorder, she currently presents with several symptoms suggestive of negative symptoms seem usually in schizoaffective disorder including constricted affect, abulia (some acknowledgment that she needed to initiate certain activities like going to dentist but still not doing so for unclear reasons). No overt paranoid delusions, her delayed response may be signs of thought blocking and underlying psychosis. She is in agreement to receive treatment and complete work up to also assess her memory and cognition. We discussed restarting abilify, which was started while she was in the ED- will titrate dose. 08/[address] shows atrophy. pending MOCA/ACL. continue abilify but may increase and add low dose ativan. 08/26 will increased abilify to 15mg po daily. will add low dose ativan- wonder if it helps with delayed response, and some staring. 08/27: T102, URI Sx. influenza A POS. UA NEG. tamiflu, droplet precautions. increase HS ativan to 1 mg. otherwise continue prior mgmt. Reason for continued inpatient stay Substantial Risk for: inability to function Time Spent With Patient Time: Total time managing care of this patient today ____ minutes.
--- NOTE | 2024-08-27 17:58 | PC.NURSE ---
Anita noted to have a non productive cough in AM, temp 101.8, PO2 97%, Tylenol 2 tabs given at 852AM. Lungs slightly diminished at Rt base, otherwise clear. Dr. Beyer made aware. Respiratory panel done, UA and urine for C&S sent to lab, lab work also done. Temperature at 945, 102.2. Anita did very well with increased fluid intake this shift. Testing came back + for influenza A. Anita placed on droplet isolation precautions, she was moved to room 176. Dr. Gamble ordered a Covid/RSV, and Flu swab testing to be done, all negative except for positive influenza A. Anita did well eating her lunch, she was toileted Q 2 hours to assist her with continence. She voided in good amounts and had a large formed brown BM, she was also incontinent of a large amount of urine later in the afternoon. She was very tired and sleepy for most of the day. Affect is flat. She is A&O x 3 and pleasant when approached. She was compliant with med regime and started her Tamiflu this afternoon, she will take BID starting tomorrow for 5 days. Tylenol given as ordered at 1535 for temp of 100.1 and comfort. Temp at 1700, 102.7. Cough also noted at this time, Robitussin given as ordered with effect. Attempted to call Jj, Anita's daughter, to make her aware, the number called is incorrect.
--- NOTE | 2024-08-27 18:19 | PC.NURSE ---
Anita noted to have a non productive cough in AM, temp 101.8, PO2 97%, Tylenol 2 tabs given at 852AM. Lungs slightly diminished at Rt base, otherwise clear. Dr. Beyer made aware. Respiratory panel done, UA and urine for C&S sent to lab, lab work also done. Temperature at 945, 102.2. Anita did very well with increased fluid intake this shift. Testing came back + for influenza A. Anita placed on droplet isolation precautions, she was moved to room 176. Dr. Gamble ordered a Covid/RSV, and Flu swab testing to be done, all negative except for positive influenza A. Anita did well eating her lunch, she was toileted Q 2 hours to assist her with continence. She voided in good amounts and had a large formed brown BM, she was also incontinent of a large amount of urine later in the afternoon. She was very tired and sleepy for most of the day. Affect is flat. She is A&O x 3 and pleasant when approached. She was compliant with med regime and started her Tamiflu this afternoon,she had her one time dose and then will be getting BID for 5 days. Tylenol given as ordered at 1535 for temp of 100.1 and comfort. Temp at 1700, 102.7. Cough also noted at this time, Robitussin given as ordered with effect. Attempted to call Thalia, Anita's daughter, to make her aware, the number called is incorrect. Temp at 1800, 101. Anita resting in bed, HOB up, eyes closed, resp even, no further coughing noted.
--- NOTE | 2024-08-27 18:41 | PC.NURSE ---
Anita's daughter, Daily chavis, made aware of her Mom's day and testing that has been done and that she is on droplet precautions for influenza A.
[2024-08-28 00:50] VITALS: TEMP 37.4
[2024-08-28 06:41] VITALS: TEMP 37
[2024-08-28 09:05] VITALS: BP 136/68; PULSE 85; RESP 17; TEMP 37.9; O2SAT 95
--- NOTE | 2024-08-28 12:21 | HO.PSYCHPN ---
Subjective Subjective Date of Service: 08/28/24 Reason For Visit: bipolar 1 disorder current or most recent epi Interim History: resting in bed, flu POS. encouraged to take fluids, tylenol, and rest. no questions or complaints. per staff, flu A came back POS yesterday. T 100.3 this morning. Mental Status Exam Mental Status Exam Narrative: Appearance: constricted affect, in NAD, malnourished, very poor dental hygiene (unbothered by it). Behavior: somewhat guarded, Psychomotor: some retardation Speech: mostly clear, delayed response, minimally spontaneous TP: poverty of thought TC: acknowledging flu. Mood: not assessed Affect:constricted SI: none HI: none VH/AH: denies but may be internally preoccupied Delusions: no overt delusional content noted or reported Insight/judgment: impaired x 2. Memory/cog: alert, oriented x 3. pending MOCA/ACL Diagnostics Vital Signs (24Hr): Vital Signs - 24 hr 08/27/24 15:38 08/27/24 17:00 08/27/24 18:00 Temperature 100.1 F 102.7 F H 101 F H Pulse Rate Respiratory Rate Blood Pressure Pulse Oximetry Oxygen Delivery Method 08/27/24 18:50 08/27/24 22:00 08/28/24 00:50 Temperature 101.4 F H 103.6 F H 99.3 F Pulse Rate 88 Respiratory Rate Blood Pressure 103/53 L Pulse Oximetry 93 Oxygen Delivery Method Room Air 08/28/24 06:41 08/28/24 09:05 Temperature 98.6 F 100.3 F Pulse Rate 85 Respiratory Rate 17 Blood Pressure 136/68 Pulse Oximetry 95 Oxygen Delivery Method Room Air BMI result Body Mass Index 20.6 Labs 08/27/24 10:00 08/23/24 21:12 Labs: Laboratory Results - last 48 hr 08/27/24 08/27/24 08/27/24 08:45 09:47 10:00 WBC 7.1 RBC 3.67 L Hgb 11.8 L Hct 33.7 L MCV 91.8 MCH 32.2 MCHC 35.0 RDW 14.0 Plt Count 224 MPV 10.4 Immature Gran % (Auto) 0.4 Neut % (Auto) 81.4 H Lymph % (Auto) 7.5 L [place] % (Auto) 10.6 Eos % (Auto) 0.0 Baso % (Auto) 0.1 Lymph # (Auto) 0.5 L [place] # (Auto) 0.8 Eos # (Auto) 0.0 Baso # (Auto) 0.0 Abs Immat Gran (auto) 0.03 Absolute Neuts (auto) 5.8 Absolute Nucleated RBC 0.000 Nucleated RBC % (auto) 0.0 Urine Color Yellow Urine Appearance Clear Urine pH 5.0 Ur Specific [place] 1.025 Urine Protein Trace Urine Glucose (UA) Negative Urine Ketones Negative Urine Blood Small (1+) H Urine Nitrite Negative Ur Leukocyte Esterase Trace H Urine RBC 0-2 Urine WBC 0-5 Ur Squamous Epith Cells 0-2 Urine Bacteria None Seen Hyaline Casts 3-5 Respiratory Panel [place] See Note Adenovirus (Rapid PCR) Not Detected B.pert (TEM-PCR) Not Detected B.parapertussis DNA PCR Not Detected C. pneumoniae DNA (PCR) Not Detected Coronavirus OC43 (PCR) Not Detected Coronavirus HKU1 (PCR) Not Detected Coronavirus 229E (PCR) Not Detected Coronavirus NL63 (PCR) Not Detected Human Metapneumovir PCR Not Detected Influenza A (RT-PCR) Detected A Influenza Type A (PCR) Influenza B (RT-PCR) Not Detected Influenza Type B (PCR) M. pneumoniae (PCR) Not Detected Parainfluenza 1 (PCR) Not Detected Parainfluenza 2 (PCR) Not Detected Parainfluenza 3 (PCR) Not Detected Parainfluenza 4 (PCR) Not Detected RSV (PCR) Not Detected RSV RNA Qual (PCR) Entero/Rhino (PCR) Not Detected SARS-CoV-2 RNA (RT-PCR) Not Detected 08/27/24 15:16 WBC RBC Hgb Hct MCV MCH MCHC RDW Plt Count MPV Immature Gran % (Auto) Neut % (Auto) Lymph % (Auto) [place] % (Auto) Eos % (Auto) Baso % (Auto) Lymph # (Auto) [place] # (Auto) Eos # (Auto) Baso # (Auto) Abs Immat Gran (auto) Absolute Neuts (auto) Absolute Nucleated RBC Nucleated RBC % (auto) Urine Color Urine Appearance Urine pH Ur Specific [place] Urine Protein Urine Glucose (UA) Urine Ketones Urine Blood Urine Nitrite Ur Leukocyte Esterase Urine RBC Urine WBC Ur Squamous Epith Cells Urine Bacteria Hyaline Casts Respiratory Panel [place] Adenovirus (Rapid PCR) B.pert (TEM-PCR) B.parapertussis DNA PCR C. pneumoniae DNA (PCR) Coronavirus OC43 (PCR) Coronavirus HKU1 (PCR) Coronavirus 229E (PCR) Coronavirus NL63 (PCR) Human Metapneumovir PCR Influenza A (RT-PCR) Influenza Type A (PCR) POSITIVE A Influenza B (RT-PCR) Influenza Type B (PCR) NEGATIVE M. pneumoniae (PCR) Parainfluenza 1 (PCR) Parainfluenza 2 (PCR) Parainfluenza 3 (PCR) Parainfluenza 4 (PCR) RSV (PCR) RSV RNA Qual (PCR) NEGATIVE Entero/Rhino (PCR) SARS-CoV-2 RNA (RT-PCR) NEGATIVE Imaging Radiology Impressions: ITS Impressions Head CT 08/25/24 11:33 IMPRESSION: No acute intracranial abnormality. Electronically signed by: Cj Colunga MD 08/25/2024 12:12 PM [facility] Medications Medications Current Medications Acetaminophen (Acetaminophen 325 Mg Tablet) 650 mg PO Q6H PRN PRN Reason: Headache/Pain, Scale 1-10 Last Admin: 08/27/24 21:35 Dose: 650 mg Al Hydroxide/Mg Hydroxide (Magnesium Hydrox/Alum Hydrox 30 Ml Oral.Susp) 30 ml PO Q6H PRN PRN Reason: Heartburn/Nausea Aripiprazole (Aripiprazole 15 Mg Tablet) 15 mg PO DAILY [facility] Last Admin: 08/28/24 09:56 Dose: 15 mg Benzocaine (Throat Lozenge, Medicated Lozenge) 1 lozenge MUCOUS MEM Q1H PRN PRN Reason: Sore Throat Guaifenesin/Dextromethorphan (Guaifenesin Dm 200/20/10 Ml 10 Ml Syrup) 10 ml PO Q4H PRN PRN Reason: Cough Last Admin: 08/27/24 16:56 Dose: 10 ml Lamotrigine (Lamotrigine 25 Mg Tablet) 25 mg PO DAILY [facility] Last Admin: 08/28/24 09:56 Dose: 25 mg Levothyroxine Sodium (Levothyroxine Sodium 75 Mcg Tablet) 75 mcg PO DAILY@0630 [facility] Last Admin: 08/28/24 06:34 Dose: 75 mcg Lidocaine/Diphenhydr/Alum/Mg/Simeth (Mag&Al/Sim/Diphenhyd/Lidocaine 10 Ml Oral.Susp) 10 ml PO Q6H PRN; Protocol PRN Reason: Painful Gums Last Admin: 08/26/24 13:38 Dose: 10 ml Lorazepam (Lorazepam 0.5 Mg Tablet) 0.5 mg PO DAILY [facility] Last Admin: 08/28/24 09:56 Dose: 0.5 mg Lorazepam (Lorazepam 1 Mg Tablet) 1 mg PO BEDTIME [facility] Last Admin: 08/27/24 21:35 Dose: 1 mg Magnesium Hydroxide (Milk Of Magnesia 30 Ml Oral.Susp) 30 ml PO DAILY PRN PRN Reason: Constipation Olanzapine (Olanzapine Odt 10 Mg Tab.Rapdis) 5 mg TRANSLINGU Q6H PRN PRN Reason: Agitation Oseltamivir Phosphate (Oseltamivir Phosphate 75 Mg Capsule) 75 mg PO Q12H [facility] Stop: 09/01/24 09:01 Last Admin: 08/28/24 09:56 Dose: 75 mg Pravastatin Sodium (Pravastatin Sodium 40 Mg Tablet) 40 mg PO BEDTIME [facility] Last Admin: 08/27/24 21:35 Dose: 40 mg Vitamin D (Cholecalciferol (Vitamin D3) 25 Mcg Tablet) 50 mcg PO DAILY [facility] Last Admin: 08/28/24 09:56 Dose: 50 mcg Allergies Allergies Allergy/AdvReac Type Severity Reaction Status Date / Time meperidine [From Demerol] AdvReac Intermediate Rash Verified 08/23/24 19:34 morphine AdvReac Intermediate Rash Verified 08/23/24 19:35 Sulfa (Sulfonamide AdvReac Intermediate Rash Verified 08/23/24 19:36 Antibiotics) Assessment & Plan Assessment & Plan (1) Schizoaffective disorder: Status: Acute Code(s): F25.9 - Schizoaffective disorder, unspecified Plan Ms. Thomas is a 69 year-old woman with hx of Bipolar Disorder, she currently presents with several symptoms suggestive of negative symptoms seem usually in schizoaffective disorder including constricted affect, abulia (some acknowledgment that she needed to initiate certain activities like going to dentist but still not doing so for unclear reasons). No overt paranoid delusions, her delayed response may be signs of thought blocking and underlying psychosis. She is in agreement to receive treatment and complete work up to also assess her memory and cognition. We discussed restarting abilify, which was started while she was in the ED- will titrate dose. 08/[address] shows atrophy. pending MOCA/ACL. continue abilify but may increase and add low dose ativan. 08/26 will increased abilify to 15mg po daily. will add low dose ativan- wonder if it helps with delayed response, and some staring. 08/27: T102, URI Sx. influenza A POS. UA NEG. tamiflu, droplet precautions. increase HS ativan to 1 mg. otherwise continue prior mgmt. 08/28: no requests or complaints, appears drained, resting in bed. continue current mgmt. Reason for continued inpatient stay Substantial Risk for: inability to function Time Spent With Patient Time: Total time managing care of this patient today ____ minutes.
[2024-08-28 16:03] VITALS: TEMP 38.6
[2024-08-28 16:04] VITALS: TEMP 38.6
[2024-08-28 19:52] VITALS: BP 140/78; PULSE 68; RESP 16; TEMP 36.6; O2SAT 100
[2024-08-29 07:43] VITALS: BP 108/54; PULSE 93; RESP 16; TEMP 38.4; O2SAT 94
--- NOTE | 2024-08-29 08:39 | P.PNPSI_ITS ---
Subjective Subjective Date of Service: 08/29/24 Reason For Visit: bipolar 1 disorder current or most recent epi Subjective Notes: Conditional Voluntary Interim History: Pt was positive for Influenza A. She was started on tamiflu. She has been having fevers on and off since 08/27 103-101F She reports cough, no SOB. O2sat on RA >93% VS this mornin.1F, BP 108/54, HR 93, RR 16. Noted on intake form- she did not have any fluids nor food yesterday. Today, encouraged to have fluids, at least have some bananas, saltine crackers, orange juice and water. Ordered BMP- monitor dehydration. She reports feeling tired, denies SOB. Medication Compliance: Yes Side effects from medications: No Mental Status Exam Mental Status Exam Narrative: Pt in bed, tired, no overt delusional or psychosis reported. No SI/HI. Insight/judgment: impaired x 2. Diagnostics Vital Signs (24Hr): Vital Signs - 24 hr 08/28/24 09:05 08/28/24 16:03 08/28/24 16:04 Temperature 100.3 F 101.4 F H 101.4 F H Pulse Rate 85 Respiratory Rate 17 Blood Pressure 136/68 Pulse Oximetry 95 Oxygen Delivery Method Room Air 08/28/24 19:52 08/29/24 07:43 Temperature 97.9 F 101.1 F H Pulse Rate 68 93 Respiratory Rate 16 16 Blood Pressure 140/78 H 108/54 L Pulse Oximetry 100 94 Oxygen Delivery Method Room Air Room Air BMI result Body Mass Index 20.6 Labs 08/27/24 10:00 08/23/24 21:12 Labs: Laboratory Results - last 48 hr 08/27/24 08/27/24 08/27/24 08:45 09:47 10:00 WBC 7.1 RBC 3.67 L Hgb 11.8 L Hct 33.7 L MCV 91.8 MCH 32.2 MCHC 35.0 RDW 14.0 Plt Count 224 MPV 10.4 Immature Gran % (Auto) 0.4 Neut % (Auto) 81.4 H Lymph % (Auto) 7.5 L [place] % (Auto) 10.6 Eos % (Auto) 0.0 Baso % (Auto) 0.1 Lymph # (Auto) 0.5 L [place] # (Auto) 0.8 Eos # (Auto) 0.0 Baso # (Auto) 0.0 Abs Immat Gran (auto) 0.03 Absolute Neuts (auto) 5.8 Absolute Nucleated RBC 0.000 Nucleated RBC % (auto) 0.0 Urine Color Yellow Urine Appearance Clear Urine pH 5.0 Ur Specific [place] 1.025 Urine Protein Trace Urine Glucose (UA) Negative Urine Ketones Negative Urine Blood Small (1+) H Urine Nitrite Negative Ur Leukocyte Esterase Trace H Urine RBC 0-2 Urine WBC 0-5 Ur Squamous Epith Cells 0-2 Urine Bacteria None Seen Hyaline Casts 3-5 Respiratory Panel [place] See Note Adenovirus (Rapid PCR) Not Detected B.pert (TEM-PCR) Not Detected B.parapertussis DNA PCR Not Detected C. pneumoniae DNA (PCR) Not Detected Coronavirus OC43 (PCR) Not Detected Coronavirus HKU1 (PCR) Not Detected Coronavirus 229E (PCR) Not Detected Coronavirus NL63 (PCR) Not Detected Human Metapneumovir PCR Not Detected Influenza A (RT-PCR) Detected A Influenza Type A (PCR) Influenza B (RT-PCR) Not Detected Influenza Type B (PCR) M. pneumoniae (PCR) Not Detected Parainfluenza 1 (PCR) Not Detected Parainfluenza 2 (PCR) Not Detected Parainfluenza 3 (PCR) Not Detected Parainfluenza 4 (PCR) Not Detected RSV (PCR) Not Detected RSV RNA Qual (PCR) Entero/Rhino (PCR) Not Detected SARS-CoV-2 RNA (RT-PCR) Not Detected 08/27/24 15:16 WBC RBC Hgb Hct MCV MCH MCHC RDW Plt Count MPV Immature Gran % (Auto) Neut % (Auto) Lymph % (Auto) [place] % (Auto) Eos % (Auto) Baso % (Auto) Lymph # (Auto) [place] # (Auto) Eos # (Auto) Baso # (Auto) Abs Immat Gran (auto) Absolute Neuts (auto) Absolute Nucleated RBC Nucleated RBC % (auto) Urine Color Urine Appearance Urine pH Ur Specific [place] Urine Protein Urine Glucose (UA) Urine Ketones Urine Blood Urine Nitrite Ur Leukocyte Esterase Urine RBC Urine WBC Ur Squamous Epith Cells Urine Bacteria Hyaline Casts Respiratory Panel [place] Adenovirus (Rapid PCR) B.pert (TEM-PCR) B.parapertussis DNA PCR C. pneumoniae DNA (PCR) Coronavirus OC43 (PCR) Coronavirus HKU1 (PCR) Coronavirus 229E (PCR) Coronavirus NL63 (PCR) Human Metapneumovir PCR Influenza A (RT-PCR) Influenza Type A (PCR) POSITIVE A Influenza B (RT-PCR) Influenza Type B (PCR) NEGATIVE M. pneumoniae (PCR) Parainfluenza 1 (PCR) Parainfluenza 2 (PCR) Parainfluenza 3 (PCR) Parainfluenza 4 (PCR) RSV (PCR) RSV RNA Qual (PCR) NEGATIVE Entero/Rhino (PCR) SARS-CoV-2 RNA (RT-PCR) NEGATIVE Imaging Radiology Impressions: ITS Impressions Head CT 08/25/24 11:33 IMPRESSION: No acute intracranial abnormality. Electronically signed by: Cj Colunga MD 08/25/2024 12:12 [place] [facility] [place] Medications Current Medications Acetaminophen (Acetaminophen 325 Mg Tablet) 650 mg PO Q6H PRN PRN Reason: Headache/Pain, Scale 1-10 Last Admin: 08/28/24 15:04 Dose: 650 mg Al Hydroxide/Mg Hydroxide (Magnesium Hydrox/Alum Hydrox 30 Ml Oral.Susp) 30 ml PO Q6H PRN PRN Reason: Heartburn/Nausea Aripiprazole (Aripiprazole 15 Mg Tablet) 15 mg PO DAILY [facility] Last Admin: 08/28/24 09:56 Dose: 15 mg Benzocaine (Throat Lozenge, Medicated Lozenge) 1 lozenge MUCOUS MEM Q1H PRN PRN Reason: Sore Throat Guaifenesin/Dextromethorphan (Guaifenesin Dm 200/20/10 Ml 10 Ml Syrup) 10 ml PO Q4H PRN PRN Reason: Cough Last Admin: 08/27/24 16:56 Dose: 10 ml Lamotrigine (Lamotrigine 25 Mg Tablet) 25 mg PO DAILY [facility] Last Admin: 08/28/24 09:56 Dose: 25 mg Levothyroxine Sodium (Levothyroxine Sodium 75 Mcg Tablet) 75 mcg PO DAILY@0630 [facility] Last Admin: 08/29/24 06:11 Dose: 75 mcg Lidocaine/Diphenhydr/Alum/Mg/Simeth (Mag&Al/Sim/Diphenhyd/Lidocaine 10 Ml Oral.Susp) 10 ml PO Q6H PRN; Protocol PRN Reason: Painful Gums Last Admin: 08/26/24 13:38 Dose: 10 ml Lorazepam (Lorazepam 0.5 Mg Tablet) 0.5 mg PO DAILY [facility] Last Admin: 08/28/24 09:56 Dose: 0.5 mg Lorazepam (Lorazepam 1 Mg Tablet) 1 mg PO BEDTIME [facility] Last Admin: 08/28/24 21:31 Dose: 1 mg Magnesium Hydroxide (Milk Of Magnesia 30 Ml Oral.Susp) 30 ml PO DAILY PRN PRN Reason: Constipation Olanzapine (Olanzapine Odt 10 Mg Tab.Rapdis) 5 mg TRANSLINGU Q6H PRN PRN Reason: Agitation Oseltamivir Phosphate (Oseltamivir Phosphate 75 Mg Capsule) 75 mg PO Q12H [facility] Stop: 09/01/24 09:01 Last Admin: 08/28/24 21:31 Dose: 75 mg Pravastatin Sodium (Pravastatin Sodium 40 Mg Tablet) 40 mg PO BEDTIME [facility] Last Admin: 08/28/24 21:31 Dose: 40 mg Vitamin D (Cholecalciferol (Vitamin D3) 25 Mcg Tablet) 50 mcg PO DAILY [facility] Last Admin: 08/28/24 09:56 Dose: 50 mcg Allergies Allergies Allergy/AdvReac Type Severity Reaction Status Date / Time meperidine [From Demerol] AdvReac Intermediate Rash Verified 08/23/24 19:34 morphine AdvReac Intermediate Rash Verified 08/23/24 19:35 Sulfa (Sulfonamide AdvReac Intermediate Rash Verified 08/23/24 19:36 Antibiotics) Assessment & Plan Assessment & Plan (1) Schizoaffective disorder: Status: Acute Code(s): F25.9 - Schizoaffective disorder, unspecified Plan Ms. Thomas is a 69 year-old woman with hx of Bipolar Disorder, she currently presents with several symptoms suggestive of negative symptoms seem usually in schizoaffective disorder including constricted affect, abulia (some acknowledgment that she needed to initiate certain activities like going to dentist but still not doing so for unclear reasons). No overt paranoid delusions, her delayed response may be signs of thought blocking and underlying psychosis. She is in agreement to receive treatment and complete work up to also assess her memory and cognition. We discussed restarting abilify, which was started while she was in the ED- will titrate dose. 08/[address] shows atrophy. pending MOCA/ACL. continue abilify but may increase and add low dose ativan. 08/26 will increased abilify to 15mg po daily. will add low dose ativan- wonder if it helps with delayed response, and some staring. 08/27: T102, URI Sx. influenza A POS. UA NEG. tamiflu, droplet precautions. increase HS ativan to 1 mg. otherwise continue prior mgmt. 08/28: no requests or complaints, appears drained, resting in bed. continue current mgmt. 08/29- continue to present febrile, this AM 101.F, O2sat on RA 94%, limited oral intake yesterday, ordered labs to monitor dehydration. pt after encouragement, drinking cup of orange juice, some water, bananas and saltine crackers. pending labs. Reason for continued inpatient stay Substantial Risk for: inability to function Time Spent With Patient Time: Total time managing care of this patient today ____ minutes.
[2024-08-29] MEDS: Throat Lozenge, Medicated LOZENGE 1 LOZENGE MUCOUS MEM (09:19)
[2024-08-29 17:54] LABS: Alanine Aminotransferase 10 U/L (0-31); Albumin Level 3.7 g/dL (3.5-5.0); Alkaline Phosphatase 51 U/L (39-117); Anion Gap 12 (12-20); Aspartate Amino Transferase 27 U/L (5-31); Blood Urea Nitrogen 13 mg/dL (9-16); Calcium 9.2 mg/dL (8.4-10.2); Carbon Dioxide 30 mmol/L (22-29); Chloride 100 mmol/L (96-108); Creatinine Clr Calc Pharmacy 57.4; Estimated Glomerular Filt Rate > 60; Potassium 3.5 mmol/L (3.3-5.1); Sodium 138 mmol/L (135-145); Total Protein 7.2 g/dL (6.5-8.0)
[2024-08-29] MEDS: guaiFENesin DM 200/20/10 ML 10 ML SYRUP PO (18:39)
[2024-08-30] MEDS: guaiFENesin DM 200/20/10 ML 10 ML SYRUP PO (05:47)
[2024-08-30 05:57] VITALS: TEMP 36.8
[2024-08-30 13:39] VITALS: BP 111/53; PULSE 80; RESP 16; TEMP 36.7; O2SAT 96
--- NOTE | 2024-08-30 17:41 | HO.PSYCHPN ---
Subjective Subjective Date of Service: 08/30/24 Reason For Visit: bipolar 1 disorder current or most recent epi Subjective Notes: Conditional Voluntary Healthcare Proxy: Yes Interim History: Pt slept all night. Afebrile this morning. VS 109/53, HR 80, O2sat on RA 96. Pt asks why we insist on her drinking fluids and maintaining hydration. She also had bowel movement and urine incontinence, did not relay information to staff to be changed, which is what she was doing at home and concern about her ability to care for herself. She is taking medications. She refuses vital signs at times, when asked why, she reports it hurts my arm, after explaining why is important to get VS given that she is positive for influenza and has been febrile, concern of monitoring O2sat, then she agreed. She in isolation. Medication Compliance: Yes Side effects from medications: No Attending Groups: No Review of Systems Review of Systems Pt denies chest pain. No abdominal pain. No diarrhea or constipation. Diagnostics Vital Signs (24Hr): Vital Signs - 24 hr 08/30/24 05:57 08/30/24 13:39 Temperature 98.3 F 98.1 F Pulse Rate 80 Respiratory Rate 16 Blood Pressure 111/53 L Pulse Oximetry 96 Oxygen Delivery Method Room Air BMI result Body Mass Index 20.6 Labs 08/27/24 10:00 08/29/24 17:32 Labs: Laboratory Results - last 48 hr 08/29/24 17:32 Sodium 138 Potassium 3.5 Chloride 100 Carbon Dioxide 30 H Anion Gap 12 BUN 13 Creatinine 0.64 Estim Creat Clear Calc 57.4 Estimated GFR > 60 Random Glucose 100 Calcium 9.2 Total Bilirubin 0.4 AST 27 ALT 10 Alkaline Phosphatase 51 Total Protein 7.2 Albumin 3.7 Imaging Radiology Impressions: ITS Impressions Head CT 08/25/24 11:33 IMPRESSION: No acute intracranial abnormality. Electronically signed by: Cj Colunga MD 08/25/2024 12:12 PM [facility] Medications Medications Current Medications Acetaminophen (Acetaminophen 325 Mg Tablet) 650 mg PO Q6H PRN PRN Reason: Headache/Pain, Scale 1-10 Last Admin: 08/30/24 05:47 Dose: 650 mg Al Hydroxide/Mg Hydroxide (Magnesium Hydrox/Alum Hydrox 30 Ml Oral.Susp) 30 ml PO Q6H PRN PRN Reason: Heartburn/Nausea Aripiprazole (Aripiprazole 15 Mg Tablet) 15 mg PO DAILY [facility] Last Admin: 08/30/24 08:20 Dose: 15 mg Benzocaine (Throat Lozenge, Medicated Lozenge) 1 lozenge MUCOUS MEM Q1H PRN PRN Reason: Sore Throat Last Admin: 08/29/24 09:19 Dose: 1 lozenge Guaifenesin/Dextromethorphan (Guaifenesin Dm 200/20/10 Ml 10 Ml Syrup) 10 ml PO Q4H PRN PRN Reason: Cough Last Admin: 08/30/24 05:47 Dose: 10 ml Levothyroxine Sodium (Levothyroxine Sodium 75 Mcg Tablet) 75 mcg PO DAILY@0630 [facility] Last Admin: 08/30/24 05:47 Dose: 75 mcg Lidocaine/Diphenhydr/Alum/Mg/Simeth (Mag&Al/Sim/Diphenhyd/Lidocaine 10 Ml Oral.Susp) 10 ml PO Q6H PRN; Protocol PRN Reason: Painful Gums Last Admin: 08/26/24 13:38 Dose: 10 ml Lorazepam (Lorazepam 0.5 Mg Tablet) 0.5 mg PO BID [facility] Last Admin: 08/30/24 09:00 Dose: 0.5 mg Magnesium Hydroxide (Milk Of Magnesia 30 Ml Oral.Susp) 30 ml PO DAILY PRN PRN Reason: Constipation Olanzapine (Olanzapine Odt 10 Mg Tab.Rapdis) 5 mg TRANSLINGU Q6H PRN PRN Reason: Agitation Oseltamivir Phosphate (Oseltamivir Phosphate 75 Mg Capsule) 75 mg PO Q12H [facility] Stop: 09/01/24 09:01 Last Admin: 08/30/24 08:20 Dose: 75 mg Pravastatin Sodium (Pravastatin Sodium 40 Mg Tablet) 40 mg PO BEDTIME [facility] Last Admin: 08/29/24 20:59 Dose: 40 mg Vitamin D (Cholecalciferol (Vitamin D3) 25 Mcg Tablet) 50 mcg PO DAILY [facility] Last Admin: 08/30/24 08:20 Dose: 50 mcg Allergies Allergies Allergy/AdvReac Type Severity Reaction Status Date / Time meperidine [From Demerol] AdvReac Intermediate Rash Verified 08/23/24 19:34 morphine AdvReac Intermediate Rash Verified 08/23/24 19:35 Sulfa (Sulfonamide AdvReac Intermediate Rash Verified 08/23/24 19:36 Antibiotics) Assessment & Plan Assessment & Plan (1) Schizoaffective disorder: Status: Acute Code(s): F25.9 - Schizoaffective disorder, unspecified Plan Ms. Thomas is a 69 year-old woman with hx of Bipolar Disorder, she currently presents with several symptoms suggestive of negative symptoms seem usually in schizoaffective disorder including constricted affect, abulia (some acknowledgment that she needed to initiate certain activities like going to dentist but still not doing so for unclear reasons). No overt paranoid delusions, her delayed response may be signs of thought blocking and underlying psychosis. She is in agreement to receive treatment and complete work up to also assess her memory and cognition. We discussed restarting abilify, which was started while she was in the ED- will titrate dose. 08/[address] shows atrophy. pending MOCA/ACL. continue abilify but may increase and add low dose ativan. 08/26 will increased abilify to 15mg po daily. will add low dose ativan- wonder if it helps with delayed response, and some staring. 08/27: T102, URI Sx. influenza A POS. UA NEG. tamiflu, droplet precautions. increase HS ativan to 1 mg. otherwise continue prior mgmt. 08/28: no requests or complaints, appears drained, resting in bed. continue current mgmt. 08/29- continue to present febrile, this AM 101.F, O2sat on RA 94%, limited oral intake yesterday, ordered labs to monitor dehydration. pt after encouragement, drinking cup of orange juice, some water, bananas and saltine crackers. pending labs. 08/30 continue tx. afebrile today for most of the day. O2sat on RA 96%. less cough, no signs of respiratory distress. taking medications. Reason for continued inpatient stay Substantial Risk for: inability to function Time Spent With Patient Time: Total time managing care of this patient today ____ minutes.
[2024-08-30 20:00] VITALS: BP 103/56; PULSE 72; RESP 18; TEMP 37.2; O2SAT 95
[2024-08-30 21:55] LABS: Appearance Urine Clear; Glucose Urine UA Negative (Negative); PH 7.0 (5.0-9.0); Specific Gravity - Urine 1.020 (1.005-1.025); UMIC TRIGGER UACC YES
[2024-08-30 22:06] LABS: UACC Culture Trigger YES
[2024-08-31 09:12] VITALS: BP 109/57; PULSE 72; RESP 20; TEMP 36.6; O2SAT 99
--- NOTE | 2024-08-31 09:51 | HO.PSYCHPN ---
Subjective Subjective Date of Service: 08/31/24 Reason For Visit: bipolar 1 disorder current or most recent epi Subjective Notes: Conditional Voluntary Interim History: Pt slept through the night. Afebrile, no significant cough. No s/s of respiratory distress. We had meeting with ACCS team and her daughter to discuss pt's inability to care for self. We discussed cognitive impairments, symptoms of abulia. She is guarded but does not report overt paranoid delusions. Plan to file for guardianship. Review of Systems Review of Systems Pt denies chest pain. No abdominal pain. No diarrhea or constipation. Mental Status Exam Mental Status Exam Narrative: Pt in bed, tired, no overt delusional or psychosis reported. No SI/HI. Insight/judgment: impaired x 2. Diagnostics Vital Signs (24Hr): Vital Signs - 24 hr 08/30/24 13:39 08/30/24 20:00 08/31/24 09:12 Temperature 98.1 F 98.9 F 97.8 F Pulse Rate 80 72 72 Respiratory Rate 16 18 20 Blood Pressure 111/53 L 103/56 L 109/57 L Pulse Oximetry 96 95 99 Oxygen Delivery Method Room Air Room Air Room Air BMI result Body Mass Index 20.6 Labs 08/27/24 10:00 08/29/24 17:32 Labs: Laboratory Results - last 48 hr 08/29/24 08/30/24 17:32 21:30 Sodium 138 Potassium 3.5 Chloride 100 Carbon Dioxide 30 H Anion Gap 12 BUN 13 Creatinine 0.64 Estim Creat Clear Calc 57.4 Estimated GFR > 60 Random Glucose 100 Calcium 9.2 Total Bilirubin 0.4 AST 27 ALT 10 Alkaline Phosphatase 51 Total Protein 7.2 Albumin 3.7 Urine Color Yellow Urine Appearance Clear Urine pH 7.0 Ur Specific [place] 1.020 Urine Protein Negative Urine Glucose (UA) Negative Urine Ketones Trace Urine Blood Negative Urine Nitrite Negative Ur Leukocyte Esterase Moderate (2+) H Urine RBC 0-2 Urine WBC 11-20 H Ur Squamous Epith Cells 0-2 Urine Bacteria None Seen Hyaline Casts 0-2 Imaging Radiology Impressions: ITS Impressions Head CT 08/25/24 11:33 IMPRESSION: No acute intracranial abnormality. Electronically signed by: Cj Colunga MD 08/25/2024 12:12 [place] [facility] [place] Medications Current Medications Acetaminophen (Acetaminophen 325 Mg Tablet) 650 mg PO Q6H PRN PRN Reason: Headache/Pain, Scale 1-10 Last Admin: 08/30/24 20:35 Dose: 650 mg Al Hydroxide/Mg Hydroxide (Magnesium Hydrox/Alum Hydrox 30 Ml Oral.Susp) 30 ml PO Q6H PRN PRN Reason: Heartburn/Nausea Aripiprazole (Aripiprazole 15 Mg Tablet) 15 mg PO DAILY [facility] Last Admin: 08/31/24 09:15 Dose: 15 mg Benzocaine (Throat Lozenge, Medicated Lozenge) 1 lozenge MUCOUS MEM Q1H PRN PRN Reason: Sore Throat Last Admin: 08/29/24 09:19 Dose: 1 lozenge Guaifenesin/Dextromethorphan (Guaifenesin Dm 200/20/10 Ml 10 Ml Syrup) 10 ml PO Q4H PRN PRN Reason: Cough Last Admin: 08/30/24 05:47 Dose: 10 ml Levothyroxine Sodium (Levothyroxine Sodium 75 Mcg Tablet) 75 mcg PO DAILY@0630 [facility] Last Admin: 08/31/24 06:08 Dose: 75 mcg Lidocaine/Diphenhydr/Alum/Mg/Simeth (Mag&Al/Sim/Diphenhyd/Lidocaine 10 Ml Oral.Susp) 10 ml PO Q6H PRN; Protocol PRN Reason: Painful Gums Last Admin: 08/26/24 13:38 Dose: 10 ml Lorazepam (Lorazepam 0.5 Mg Tablet) 0.5 mg PO BID [facility] Last Admin: 08/31/24 09:15 Dose: 0.5 mg Magnesium Hydroxide (Milk Of Magnesia 30 Ml Oral.Susp) 30 ml PO DAILY PRN PRN Reason: Constipation Olanzapine (Olanzapine Odt 10 Mg Tab.Rapdis) 5 mg TRANSLINGU Q6H PRN PRN Reason: Agitation Oseltamivir Phosphate (Oseltamivir Phosphate 75 Mg Capsule) 75 mg PO Q12H [facility] Stop: 09/01/24 09:01 Last Admin: 08/31/24 09:15 Dose: 75 mg Pravastatin Sodium (Pravastatin Sodium 40 Mg Tablet) 40 mg PO BEDTIME [facility] Last Admin: 08/30/24 20:27 Dose: 40 mg Vitamin D (Cholecalciferol (Vitamin D3) 25 Mcg Tablet) 50 mcg PO DAILY [facility] Last Admin: 08/31/24 09:15 Dose: 50 mcg Allergies Allergies Allergy/AdvReac Type Severity Reaction Status Date / Time meperidine [From Demerol] AdvReac Intermediate Rash Verified 08/23/24 19:34 morphine AdvReac Intermediate Rash Verified 08/23/24 19:35 Sulfa (Sulfonamide AdvReac Intermediate Rash Verified 08/23/24 19:36 Antibiotics) Assessment & Plan Assessment & Plan (1) Schizoaffective disorder: Status: Acute Code(s): F25.9 - Schizoaffective disorder, unspecified Plan Ms. Thomas is a 69 year-old woman with hx of Bipolar Disorder, she currently presents with several symptoms suggestive of negative symptoms seem usually in schizoaffective disorder including constricted affect, abulia (some acknowledgment that she needed to initiate certain activities like going to dentist but still not doing so for unclear reasons). No overt paranoid delusions, her delayed response may be signs of thought blocking and underlying psychosis. She is in agreement to receive treatment and complete work up to also assess her memory and cognition. We discussed restarting abilify, which was started while she was in the ED- will titrate dose. 08/[address] shows atrophy. pending MOCA/ACL. continue abilify but may increase and add low dose ativan. 08/26 will increased abilify to 15mg po daily. will add low dose ativan- wonder if it helps with delayed response, and some staring. 08/27: T102, URI Sx. influenza A POS. UA NEG. tamiflu, droplet precautions. increase HS ativan to 1 mg. otherwise continue prior mgmt. 08/28: no requests or complaints, appears drained, resting in bed. continue current mgmt. 08/29- continue to present febrile, this AM 101.F, O2sat on RA 94%, limited oral intake yesterday, ordered labs to monitor dehydration. pt after encouragement, drinking cup of orange juice, some water, bananas and saltine crackers. pending labs. 08/30 continue tx. afebrile today for most of the day. O2sat on RA 96%. less cough, no signs of respiratory distress. taking medications. 08/31 family meeting- discussed filing for guardianship, she is currently taking medications. no longer syntomatic in terms of Influenza. afebrile, no respiratory distress. Reason for continued inpatient stay Substantial Risk for: inability to function Time Spent With Patient Time: Total time managing care of this patient today ____ minutes.
[2024-08-31 20:00] VITALS: BP 100/50; PULSE 78; RESP 20; TEMP 36.1; O2SAT 96
[2024-09-01] MEDS: Throat Lozenge, Medicated LOZENGE 1 LOZENGE MUCOUS MEM (06:09)
[2024-09-01 09:00] VITALS: BP 120/80; PULSE 77; RESP 18; TEMP 37; O2SAT 96
--- NOTE | 2024-09-01 09:19 | P.PNPSI_ITS ---
Subjective Subjective Date of Service: 09/01/24 Reason For Visit: bipolar 1 disorder current or most recent epi Subjective Notes: Conditional Voluntary Interim History: Pt slept through the night. She is mostly in her room. Today salgado day 6 since she experienced first s/s of influenza. She continues to be afebrile. UA and culture do not show s/s of UTI. She is taking medications as prescribed. No behavioral concerns. Diagnostics Vital Signs (24Hr): Vital Signs - 24 hr 08/31/24 20:00 Temperature 97 F Pulse Rate 78 Respiratory Rate 20 Blood Pressure 100/50 L Pulse Oximetry 96 Oxygen Delivery Method Room Air BMI result Body Mass Index 20.6 Labs 08/27/24 10:00 08/29/24 17:32 Labs: Laboratory Results - last 48 hr 08/30/24 21:30 Urine Color Yellow Urine Appearance Clear Urine pH 7.0 Ur Specific [place] 1.020 Urine Protein Negative Urine Glucose (UA) Negative Urine Ketones Trace Urine Blood Negative Urine Nitrite Negative Ur Leukocyte Esterase Moderate (2+) H Urine RBC 0-2 Urine WBC 11-20 H Ur Squamous Epith Cells 0-2 Urine Bacteria None Seen Hyaline Casts 0-2 Imaging Radiology Impressions: ITS Impressions Head CT 08/25/24 11:33 IMPRESSION: No acute intracranial abnormality. Electronically signed by: Cj Colunga MD 08/25/2024 12:[address] [facility] Medications Medications Current Medications Acetaminophen (Acetaminophen 325 Mg Tablet) 650 mg PO Q6H PRN PRN Reason: Headache/Pain, Scale 1-10 Last Admin: 08/30/24 20:35 Dose: 650 mg Al Hydroxide/Mg Hydroxide (Magnesium Hydrox/Alum Hydrox 30 Ml Oral.Susp) 30 ml PO Q6H PRN PRN Reason: Heartburn/Nausea Aripiprazole (Aripiprazole 15 Mg Tablet) 15 mg PO DAILY [facility] Last Admin: 09/01/24 09:07 Dose: 15 mg Benzocaine (Throat Lozenge, Medicated Lozenge) 1 lozenge MUCOUS MEM Q1H PRN PRN Reason: Sore Throat Last Admin: 09/01/24 06:09 Dose: 1 lozenge Guaifenesin/Dextromethorphan (Guaifenesin Dm 200/20/10 Ml 10 Ml Syrup) 10 ml PO Q4H PRN PRN Reason: Cough Last Admin: 08/30/24 05:47 Dose: 10 ml Levothyroxine Sodium (Levothyroxine Sodium 75 Mcg Tablet) 75 mcg PO DAILY@0630 [facility] Last Admin: 09/01/24 05:52 Dose: 75 mcg Lidocaine/Diphenhydr/Alum/Mg/Simeth (Mag&Al/Sim/Diphenhyd/Lidocaine 10 Ml Oral.Susp) 10 ml PO Q6H PRN; Protocol PRN Reason: Painful Gums Last Admin: 08/26/24 13:38 Dose: 10 ml Lorazepam (Lorazepam 0.5 Mg Tablet) 0.5 mg PO BID [facility] Last Admin: 09/01/24 09:07 Dose: 0.5 mg Magnesium Hydroxide (Milk Of Magnesia 30 Ml Oral.Susp) 30 ml PO DAILY PRN PRN Reason: Constipation Olanzapine (Olanzapine Odt 10 Mg Tab.Rapdis) 5 mg TRANSLINGU Q6H PRN PRN Reason: Agitation Pravastatin Sodium (Pravastatin Sodium 40 Mg Tablet) 40 mg PO BEDTIME [facility] Last Admin: 08/31/24 21:30 Dose: 40 mg Vitamin D (Cholecalciferol (Vitamin D3) 25 Mcg Tablet) 50 mcg PO DAILY [facility] Last Admin: 09/01/24 09:07 Dose: 50 mcg Allergies Allergies Allergy/AdvReac Type Severity Reaction Status Date / Time meperidine [From Demerol] AdvReac Intermediate Rash Verified 08/23/24 19:34 morphine AdvReac Intermediate Rash Verified 08/23/24 19:35 Sulfa (Sulfonamide AdvReac Intermediate Rash Verified 08/23/24 19:36 Antibiotics) Assessment & Plan Assessment & Plan (1) Schizoaffective disorder: Status: Acute Code(s): F25.9 - Schizoaffective disorder, unspecified Plan Ms. Thomas is a 69 year-old woman with hx of Bipolar Disorder, she currently presents with several symptoms suggestive of negative symptoms seem usually in schizoaffective disorder including constricted affect, abulia (some acknowledgment that she needed to initiate certain activities like going to dentist but still not doing so for unclear reasons). No overt paranoid delusions, her delayed response may be signs of thought blocking and underlying psychosis. She is in agreement to receive treatment and complete work up to also assess her memory and cognition. We discussed restarting abilify, which was started while she was in the ED- will titrate dose. 08/[address] shows atrophy. pending MOCA/ACL. continue abilify but may increase and add low dose ativan. 08/26 will increased abilify to 15mg po daily. will add low dose ativan- wonder if it helps with delayed response, and some staring. 08/27: T102, URI Sx. influenza A POS. UA NEG. tamiflu, droplet precautions. increase HS ativan to 1 mg. otherwise continue prior mgmt. 08/28: no requests or complaints, appears drained, resting in bed. continue current mgmt. 08/29- continue to present febrile, this AM 101.F, O2sat on RA 94%, limited oral intake yesterday, ordered labs to monitor dehydration. pt after encouragement, drinking cup of orange juice, some water, bananas and saltine crackers. pending labs. 08/30 continue tx. afebrile today for most of the day. O2sat on RA 96%. less cough, no signs of respiratory distress. taking medications. 08/31 family meeting- discussed filing for guardianship, she is currently taking medications. no longer syntomatic in terms of Influenza. afebrile, no respiratory distress. 09/01 continue tx. will complete guardianship papers Reason for continued inpatient stay Substantial Risk for: inability to function Time Spent With Patient Time: Total time managing care of this patient today ____ minutes.
[2024-09-01 10:44] VITALS: BMI 20.2
[2024-09-01 19:28] VITALS: BMI 20.2
[2024-09-01 20:00] VITALS: BP 137/58; PULSE 74; RESP 16; TEMP 36.6; O2SAT 97
[2024-09-02 08:10] VITALS: BP 148/60; PULSE 91; RESP 15; TEMP 36.2; O2SAT 96
--- NOTE | 2024-09-02 19:02 | P.PNPSI_ITS ---
Subjective Subjective Date of Service: 09/02/24 Reason For Visit: bipolar 1 disorder current or most recent epi Subjective Notes: Conditional Voluntary Healthcare Proxy: Yes Interim History: Pt sleeping through the night. She is guarded, asking why staff checks blood pressure. She is in bed, asking to be changed but when asked if he is soiled denies. Mostly in bed, visible for meal but does not interact with peers. No SI/HI. Appears internally preoccupied. she does take medications. Medication Compliance: Yes Review of Systems Review of Systems Pt denies chest pain. No abdominal pain. No diarrhea or constipation. Diagnostics Vital Signs (24Hr): Vital Signs - 24 hr 09/01/24 20:00 09/02/24 08:10 Temperature 98 F 97.2 F Pulse Rate 74 91 Respiratory Rate 16 15 Blood Pressure 137/58 L 148/60 H Pulse Oximetry 97 96 Oxygen Delivery Method Room Air Room Air BMI result Body Mass Index 20.2 Labs 08/27/24 10:00 08/29/24 17:32 Imaging Radiology Impressions: ITS Impressions Head CT 08/25/24 11:33 IMPRESSION: No acute intracranial abnormality. Electronically signed by: Cj Colunga MD 08/25/2024 12:12 PM [facility] [place] Medications Medications Current Medications Acetaminophen (Acetaminophen 325 Mg Tablet) 650 mg PO Q6H PRN PRN Reason: Headache/Pain, Scale 1-10 Last Admin: 08/30/24 20:35 Dose: 650 mg Al Hydroxide/Mg Hydroxide (Magnesium Hydrox/Alum Hydrox 30 Ml Oral.Susp) 30 ml PO Q6H PRN PRN Reason: Heartburn/Nausea Aripiprazole (Aripiprazole 20 Mg Tablet) 20 mg PO DAILY [facility] Last Admin: 09/02/24 12:20 Dose: 20 mg Benzocaine (Throat Lozenge, Medicated Lozenge) 1 lozenge MUCOUS MEM Q1H PRN PRN Reason: Sore Throat Last Admin: 09/01/24 06:09 Dose: 1 lozenge Guaifenesin/Dextromethorphan (Guaifenesin Dm 200/20/10 Ml 10 Ml Syrup) 10 ml PO Q4H PRN PRN Reason: Cough Last Admin: 08/30/24 05:47 Dose: 10 ml Levothyroxine Sodium (Levothyroxine Sodium 75 Mcg Tablet) 75 mcg PO DAILY@0630 [facility] Last Admin: 09/02/24 06:37 Dose: 75 mcg Lidocaine/Diphenhydr/Alum/Mg/Simeth (Mag&Al/Sim/Diphenhyd/Lidocaine 10 Ml Oral.Susp) 10 ml PO Q6H PRN; Protocol PRN Reason: Painful Gums Last Admin: 08/26/24 13:38 Dose: 10 ml Lorazepam (Lorazepam 0.5 Mg Tablet) 0.5 mg PO BID [facility] Last Admin: 09/02/24 08:37 Dose: 0.5 mg Magnesium Hydroxide (Milk Of Magnesia 30 Ml Oral.Susp) 30 ml PO DAILY PRN PRN Reason: Constipation Memantine (Memantine Hcl 5 Mg Tablet) 5 mg PO DAILY [facility] Last Admin: 09/02/24 08:37 Dose: 5 mg Olanzapine (Olanzapine Odt 10 Mg Tab.Rapdis) 5 mg TRANSLINGU Q6H PRN PRN Reason: Agitation Pravastatin Sodium (Pravastatin Sodium 40 Mg Tablet) 40 mg PO BEDTIME [facility] Last Admin: 09/01/24 21:14 Dose: 40 mg Vitamin D (Cholecalciferol (Vitamin D3) 25 Mcg Tablet) 50 mcg PO DAILY [facility] Last Admin: 09/02/24 08:37 Dose: 50 mcg Allergies Allergies Allergy/AdvReac Type Severity Reaction Status Date / Time meperidine [From Demerol] AdvReac Intermediate Rash Verified 08/23/24 19:34 morphine AdvReac Intermediate Rash Verified 08/23/24 19:35 Sulfa (Sulfonamide AdvReac Intermediate Rash Verified 08/23/24 19:36 Antibiotics) Assessment & Plan Assessment & Plan (1) Schizoaffective disorder: Status: Acute Code(s): F25.9 - Schizoaffective disorder, unspecified Plan Ms. Thomas is a 69 year-old woman with hx of Bipolar Disorder, she currently presents with several symptoms suggestive of negative symptoms seem usually in schizoaffective disorder including constricted affect, abulia (some acknowledgment that she needed to initiate certain activities like going to dentist but still not doing so for unclear reasons). No overt paranoid delusions, her delayed response may be signs of thought blocking and underlying psychosis. She is in agreement to receive treatment and complete work up to also assess her memory and cognition. We discussed restarting abilify, which was started while she was in the ED- will titrate dose. 08/[address] shows atrophy. pending MOCA/ACL. continue abilify but may increase and add low dose ativan. 08/26 will increased abilify to 15mg po daily. will add low dose ativan- wonder if it helps with delayed response, and some staring. 08/27: T102, URI Sx. influenza A POS. UA NEG. tamiflu, droplet precautions. increase HS ativan to 1 mg. otherwise continue prior mgmt. 08/28: no requests or complaints, appears drained, resting in bed. continue current mgmt. 08/29- continue to present febrile, this AM 101.F, O2sat on RA 94%, limited oral intake yesterday, ordered labs to monitor dehydration. pt after encouragement, drinking cup of orange juice, some water, bananas and saltine crackers. pending labs. 08/30 continue tx. afebrile today for most of the day. O2sat on RA 96%. less cough, no signs of respiratory distress. taking medications. 08/31 family meeting- discussed filing for guardianship, she is currently taking medications. no longer syntomatic in terms of Influenza. afebrile, no respiratory distress. 09/01 continue tx. will complete guardianship papers 09/[address] for guardianship/maik. continues tx abilify increased to 20mg po daily. added memantine to target abulia. Reason for continued inpatient stay Substantial Risk for: inability to function Time Spent With Patient Time: Total time managing care of this patient today ____ minutes.
[2024-09-02 20:00] VITALS: BP 115/60; PULSE 68; RESP 16; TEMP 36.8; O2SAT 96
[2024-09-03 08:00] VITALS: RESP 18
--- NOTE | 2024-09-03 09:36 | PC.NURSE ---
Refused vital signs, Serena Sullivan NP notified.
--- NOTE | 2024-09-03 18:16 | HO.PSYCHPN ---
Subjective Subjective Date of Service: 09/03/24 Reason For Visit: bipolar 1 disorder current or most recent epi Subjective Notes: 3 Day Interim History: Pt sleeping through the night. She is guarded, asking why staff checks blood pressure. She is in bed, asking to be changed but when asked if he is soiled denies. Mostly in bed, visible for meal but does not interact with peers. No SI/HI. Appears internally preoccupied. she does take medications. Review of Systems Review of Systems Pt denies chest pain. No abdominal pain. No diarrhea or constipation. Diagnostics Vital Signs (24Hr): Vital Signs - 24 hr 09/02/24 20:00 09/03/24 08:00 Temperature 98.2 F Pulse Rate 68 Respiratory Rate 16 18 Blood Pressure 115/60 Pulse Oximetry 96 Oxygen Delivery Method Room Air BMI result Body Mass Index 20.2 Labs 08/27/24 10:00 08/29/24 17:32 Imaging Radiology Impressions: ITS Impressions Head CT 08/25/24 11:33 IMPRESSION: No acute intracranial abnormality. Electronically signed by: Cj Colunga MD 08/25/2024 12:12 PM [facility] [place] Medications Medications Current Medications Acetaminophen (Acetaminophen 325 Mg Tablet) 650 mg PO Q6H PRN PRN Reason: Headache/Pain, Scale 1-10 Last Admin: 08/30/24 20:35 Dose: 650 mg Al Hydroxide/Mg Hydroxide (Magnesium Hydrox/Alum Hydrox 30 Ml Oral.Susp) 30 ml PO Q6H PRN PRN Reason: Heartburn/Nausea Aripiprazole (Aripiprazole 20 Mg Tablet) 20 mg PO DAILY [facility] Last Admin: 09/03/24 08:56 Dose: 20 mg Benzocaine (Throat Lozenge, Medicated Lozenge) 1 lozenge MUCOUS MEM Q1H PRN PRN Reason: Sore Throat Last Admin: 09/01/24 06:09 Dose: 1 lozenge Guaifenesin/Dextromethorphan (Guaifenesin Dm 200/20/10 Ml 10 Ml Syrup) 10 ml PO Q4H PRN PRN Reason: Cough Last Admin: 08/30/24 05:47 Dose: 10 ml Levothyroxine Sodium (Levothyroxine Sodium 75 Mcg Tablet) 75 mcg PO DAILY@0630 [facility] Last Admin: 09/03/24 06:10 Dose: 75 mcg Lidocaine/Diphenhydr/Alum/Mg/Simeth (Mag&Al/Sim/Diphenhyd/Lidocaine 10 Ml Oral.Susp) 10 ml PO Q6H PRN; Protocol PRN Reason: Painful Gums Last Admin: 08/26/24 13:38 Dose: 10 ml Lorazepam (Lorazepam 0.5 Mg Tablet) 0.5 mg PO BID [facility] Last Admin: 09/03/24 08:56 Dose: 0.5 mg Magnesium Hydroxide (Milk Of Magnesia 30 Ml Oral.Susp) 30 ml PO DAILY PRN PRN Reason: Constipation Memantine (Memantine Hcl 5 Mg Tablet) 5 mg PO DAILY [facility] Last Admin: 09/03/24 08:56 Dose: 5 mg Olanzapine (Olanzapine Odt 10 Mg Tab.Rapdis) 5 mg TRANSLINGU Q6H PRN PRN Reason: Agitation Pravastatin Sodium (Pravastatin Sodium 40 Mg Tablet) 40 mg PO BEDTIME [facility] Last Admin: 09/02/24 20:51 Dose: 40 mg Vitamin D (Cholecalciferol (Vitamin D3) 25 Mcg Tablet) 50 mcg PO DAILY [facility] Last Admin: 09/03/24 08:56 Dose: 50 mcg Allergies Allergies Allergy/AdvReac Type Severity Reaction Status Date / Time meperidine [From Demerol] AdvReac Intermediate Rash Verified 08/23/24 19:34 morphine AdvReac Intermediate Rash Verified 08/23/24 19:35 Sulfa (Sulfonamide AdvReac Intermediate Rash Verified 08/23/24 19:36 Antibiotics) Assessment & Plan Assessment & Plan (1) Schizoaffective disorder: Status: Acute Code(s): F25.9 - Schizoaffective disorder, unspecified Plan Ms. Thomas is a 69 year-old woman with hx of Bipolar Disorder, she currently presents with several symptoms suggestive of negative symptoms seem usually in schizoaffective disorder including constricted affect, abulia (some acknowledgment that she needed to initiate certain activities like going to dentist but still not doing so for unclear reasons). No overt paranoid delusions, her delayed response may be signs of thought blocking and underlying psychosis. She is in agreement to receive treatment and complete work up to also assess her memory and cognition. We discussed restarting abilify, which was started while she was in the ED- will titrate dose. 08/[address] shows atrophy. pending MOCA/ACL. continue abilify but may increase and add low dose ativan. 08/26 will increased abilify to 15mg po daily. will add low dose ativan- wonder if it helps with delayed response, and some staring. 08/27: T102, URI Sx. influenza A POS. UA NEG. tamiflu, droplet precautions. increase HS ativan to 1 mg. otherwise continue prior mgmt. 08/28: no requests or complaints, appears drained, resting in bed. continue current mgmt. 08/29- continue to present febrile, this AM 101.F, O2sat on RA 94%, limited oral intake yesterday, ordered labs to monitor dehydration. pt after encouragement, drinking cup of orange juice, some water, bananas and saltine crackers. pending labs. 08/30 continue tx. afebrile today for most of the day. O2sat on RA 96%. less cough, no signs of respiratory distress. taking medications. 08/31 family meeting- discussed filing for guardianship, she is currently taking medications. no longer syntomatic in terms of Influenza. afebrile, no respiratory distress. 09/01 continue tx. will complete guardianship papers 09/02 guardianship filed. continue tx. started on namenda target abulia. abilify increased to 20mg po daily. 09/03 continue tx. Reason for continued inpatient stay Substantial Risk for: inability to function Time Spent With Patient Time: Total time managing care of this patient today ____ minutes.
[2024-09-03 20:00] VITALS: BP 99/54; PULSE 72; TEMP 36.6; O2SAT 96
[2024-09-04 08:42] VITALS: BP 109/59; PULSE 69; RESP 16; TEMP 36.4; O2SAT 99
--- NOTE | 2024-09-04 12:15 | P.PNPSI_ITS ---
Subjective Subjective Date of Service: 09/04/24 Reason For Visit: bipolar 1 disorder current or most recent epi Subjective Notes: Conditional Voluntary Interim History: Pt sleeping through the night. Mostly in bed, not social with peers. She is in bed, asking to be changed but when asked if he is soiled denies. She reports doing well No SI/HI. Appears internally preoccupied. she does take medications. Review of Systems Review of Systems Pt denies chest pain. No abdominal pain. No diarrhea or constipation. Mental Status Exam Mental Status Exam Narrative: Appearance: constricted affect, in NAD, malnourished, very poor dental hygiene (unbothered by it). Behavior: somewhat guarded, Psychomotor: some retardation Speech: mostly clear, delayed response, minimally spontaneous TP: poverty of thought TC: agreeing with not being able to care for herself. Mood: good Affect:constricted SI: none HI: none VH/AH: denies but may be internally preoccupied Delusions: no overt delusional content noted or reported Insight/judgment: impaired x 2. Memory/cog: alert, oriented x 3. Diagnostics Vital Signs (24Hr): Vital Signs - 24 hr 09/03/24 20:00 09/04/24 08:42 Temperature 97.9 F 97.5 F Pulse Rate 72 69 Respiratory Rate 16 Blood Pressure 99/54 L 109/59 L Pulse Oximetry 96 99 Oxygen Delivery Method Room Air Room Air BMI result Body Mass Index 20.2 Labs 08/27/24 10:00 08/29/24 17:32 Imaging Radiology Impressions: ITS Impressions Head CT 08/25/24 11:33 IMPRESSION: No acute intracranial abnormality. Electronically signed by: Cj Colunga MD 08/25/2024 12:12 PM [facility] [place] Medications Medications Current Medications Acetaminophen (Acetaminophen 325 Mg Tablet) 650 mg PO Q6H PRN PRN Reason: Headache/Pain, Scale 1-10 Last Admin: 08/30/24 20:35 Dose: 650 mg Al Hydroxide/Mg Hydroxide (Magnesium Hydrox/Alum Hydrox 30 Ml Oral.Susp) 30 ml PO Q6H PRN PRN Reason: Heartburn/Nausea Aripiprazole (Aripiprazole 20 Mg Tablet) 20 mg PO DAILY [facility] Last Admin: 09/04/24 09:15 Dose: 20 mg Benzocaine (Throat Lozenge, Medicated Lozenge) 1 lozenge MUCOUS MEM Q1H PRN PRN Reason: Sore Throat Last Admin: 09/01/24 06:09 Dose: 1 lozenge Guaifenesin/Dextromethorphan (Guaifenesin Dm 200/20/10 Ml 10 Ml Syrup) 10 ml PO Q4H PRN PRN Reason: Cough Last Admin: 08/30/24 05:47 Dose: 10 ml Levothyroxine Sodium (Levothyroxine Sodium 75 Mcg Tablet) 75 mcg PO DAILY@0630 [facility] Last Admin: 09/04/24 05:53 Dose: 75 mcg Lidocaine/Diphenhydr/Alum/Mg/Simeth (Mag&Al/Sim/Diphenhyd/Lidocaine 10 Ml Oral.Susp) 10 ml PO Q6H PRN; Protocol PRN Reason: Painful Gums Last Admin: 08/26/24 13:38 Dose: 10 ml Lorazepam (Lorazepam 0.5 Mg Tablet) 0.5 mg PO BID [facility] Last Admin: 09/04/24 09:15 Dose: 0.5 mg Magnesium Hydroxide (Milk Of Magnesia 30 Ml Oral.Susp) 30 ml PO DAILY PRN PRN Reason: Constipation Memantine (Memantine Hcl 5 Mg Tablet) 5 mg PO DAILY [facility] Last Admin: 09/04/24 09:15 Dose: 5 mg Olanzapine (Olanzapine Odt 10 Mg Tab.Rapdis) 5 mg TRANSLINGU Q6H PRN PRN Reason: Agitation Pravastatin Sodium (Pravastatin Sodium 40 Mg Tablet) 40 mg PO BEDTIME [facility] Last Admin: 09/03/24 20:45 Dose: 40 mg Vitamin D (Cholecalciferol (Vitamin D3) 25 Mcg Tablet) 50 mcg PO DAILY [facility] Last Admin: 09/04/24 09:15 Dose: 50 mcg Allergies Allergies Allergy/AdvReac Type Severity Reaction Status Date / Time meperidine [From Demerol] AdvReac Intermediate Rash Verified 08/23/24 19:34 morphine AdvReac Intermediate Rash Verified 08/23/24 19:35 Sulfa (Sulfonamide AdvReac Intermediate Rash Verified 08/23/24 19:36 Antibiotics) Assessment & Plan Assessment & Plan (1) Schizoaffective disorder: Status: Acute Code(s): F25.9 - Schizoaffective disorder, unspecified Plan Ms. Thomas is a 69 year-old woman with hx of Bipolar Disorder, she currently presents with several symptoms suggestive of negative symptoms seem usually in schizoaffective disorder including constricted affect, abulia (some acknowledgment that she needed to initiate certain activities like going to dentist but still not doing so for unclear reasons). No overt paranoid delusions, her delayed response may be signs of thought blocking and underlying psychosis. She is in agreement to receive treatment and complete work up to also assess her memory and cognition. We discussed restarting abilify, which was started while she was in the ED- will titrate dose. 08/[address] shows atrophy. pending MOCA/ACL. continue abilify but may increase and add low dose ativan. 08/26 will increased abilify to 15mg po daily. will add low dose ativan- wonder if it helps with delayed response, and some staring. 08/27: T102, URI Sx. influenza A POS. UA NEG. tamiflu, droplet precautions. increase HS ativan to 1 mg. otherwise continue prior mgmt. 08/28: no requests or complaints, appears drained, resting in bed. continue current mgmt. 08/29- continue to present febrile, this AM 101.F, O2sat on RA 94%, limited oral intake yesterday, ordered labs to monitor dehydration. pt after encouragement, drinking cup of orange juice, some water, bananas and saltine crackers. pending labs. 08/30 continue tx. afebrile today for most of the day. O2sat on RA 96%. less cough, no signs of respiratory distress. taking medications. 08/31 family meeting- discussed filing for guardianship, she is currently taking medications. no longer syntomatic in terms of Influenza. afebrile, no respiratory distress. 09/01 continue tx. will complete guardianship papers 09/02 guardianship filed. continue tx. started on namenda target abulia. abilify increased to 20mg po daily. 09/03 continue tx. 09/04 continue tx. Reason for continued inpatient stay Substantial Risk for: inability to function Time Spent With Patient Time: Total time managing care of this patient today ____ minutes.
[2024-09-04 19:00] VITALS: BMI 20.1
[2024-09-04 20:00] VITALS: BP 149/78; PULSE 60; RESP 16; TEMP 36.2; O2SAT 99
[2024-09-05 08:00] VITALS: BP 106/58; PULSE 73; RESP 16; TEMP 36.2; O2SAT 96
--- NOTE | 2024-09-05 10:11 | HO.PSYCHPN ---
Subjective Subjective Date of Service: 09/05/24 Reason For Visit: bipolar 1 disorder current or most recent epi Subjective Notes: Conditional Voluntary Interim History: Pt sleeping through the night. Mostly in bed, not social with peers. She is in bed, asking to be changed but when asked if he is soiled denies. She reports doing well No SI/HI. Appears internally preoccupied. she does take medications. She avoids social interactions. Review of Systems Review of Systems Pt denies chest pain. No abdominal pain. No diarrhea or constipation. Mental Status Exam Mental Status Exam Narrative: Appearance: constricted affect, in NAD, malnourished, very poor dental hygiene (unbothered by it). Behavior: somewhat guarded, Psychomotor: some retardation Speech: mostly clear, delayed response, minimally spontaneous TP: poverty of thought TC: agreeing with not being able to care for herself. Mood: good Affect:constricted SI: none HI: none VH/AH: denies but may be internally preoccupied Delusions: no overt delusional content noted or reported Insight/judgment: impaired x 2. Memory/cog: alert, oriented x 3. Diagnostics Vital Signs (24Hr): Vital Signs - 24 hr 09/04/24 20:00 Temperature 97.2 F Pulse Rate 60 Respiratory Rate 16 Blood Pressure 149/78 H Pulse Oximetry 99 Oxygen Delivery Method Room Air BMI result Body Mass Index 20.1 Labs 08/27/24 10:00 08/29/24 17:32 Imaging Radiology Impressions: ITS Impressions Head CT 08/25/24 11:33 IMPRESSION: No acute intracranial abnormality. Electronically signed by: Cj Colunga MD 08/25/2024 12:12 PM [facility] Medications Medications Current Medications Acetaminophen (Acetaminophen 325 Mg Tablet) 650 mg PO Q6H PRN PRN Reason: Headache/Pain, Scale 1-10 Last Admin: 08/30/24 20:35 Dose: 650 mg Al Hydroxide/Mg Hydroxide (Magnesium Hydrox/Alum Hydrox 30 Ml Oral.Susp) 30 ml PO Q6H PRN PRN Reason: Heartburn/Nausea Aripiprazole (Aripiprazole 20 Mg Tablet) 20 mg PO DAILY [facility] Last Admin: 09/05/24 09:10 Dose: 20 mg Benzocaine (Throat Lozenge, Medicated Lozenge) 1 lozenge MUCOUS MEM Q1H PRN PRN Reason: Sore Throat Last Admin: 09/01/24 06:09 Dose: 1 lozenge Guaifenesin/Dextromethorphan (Guaifenesin Dm 200/20/10 Ml 10 Ml Syrup) 10 ml PO Q4H PRN PRN Reason: Cough Last Admin: 08/30/24 05:47 Dose: 10 ml Levothyroxine Sodium (Levothyroxine Sodium 75 Mcg Tablet) 75 mcg PO DAILY@0630 [facility] Last Admin: 09/05/24 05:52 Dose: 75 mcg Lidocaine/Diphenhydr/Alum/Mg/Simeth (Mag&Al/Sim/Diphenhyd/Lidocaine 10 Ml Oral.Susp) 10 ml PO Q6H PRN; Protocol PRN Reason: Painful Gums Last Admin: 08/26/24 13:38 Dose: 10 ml Lorazepam (Lorazepam 0.5 Mg Tablet) 0.5 mg PO BID [facility] Last Admin: 09/05/24 09:10 Dose: 0.5 mg Magnesium Hydroxide (Milk Of Magnesia 30 Ml Oral.Susp) 30 ml PO DAILY PRN PRN Reason: Constipation Memantine (Memantine Hcl 5 Mg Tablet) 5 mg PO DAILY [facility] Last Admin: 09/05/24 09:10 Dose: 5 mg Olanzapine (Olanzapine Odt 10 Mg Tab.Rapdis) 5 mg TRANSLINGU Q6H PRN PRN Reason: Agitation Pravastatin Sodium (Pravastatin Sodium 40 Mg Tablet) 40 mg PO BEDTIME [facility] Last Admin: 09/04/24 20:57 Dose: 40 mg Vitamin D (Cholecalciferol (Vitamin D3) 25 Mcg Tablet) 50 mcg PO DAILY [facility] Last Admin: 09/05/24 09:10 Dose: 50 mcg Allergies Allergies Allergy/AdvReac Type Severity Reaction Status Date / Time meperidine [From Demerol] AdvReac Intermediate Rash Verified 08/23/24 19:34 morphine AdvReac Intermediate Rash Verified 08/23/24 19:35 Sulfa (Sulfonamide AdvReac Intermediate Rash Verified 08/23/24 19:36 Antibiotics) Assessment & Plan Assessment & Plan (1) Schizoaffective disorder: Status: Acute Code(s): F25.9 - Schizoaffective disorder, unspecified Plan Ms. Thomas is a 69 year-old woman with hx of Bipolar Disorder, she currently presents with several symptoms suggestive of negative symptoms seem usually in schizoaffective disorder including constricted affect, abulia (some acknowledgment that she needed to initiate certain activities like going to dentist but still not doing so for unclear reasons). No overt paranoid delusions, her delayed response may be signs of thought blocking and underlying psychosis. She is in agreement to receive treatment and complete work up to also assess her memory and cognition. We discussed restarting abilify, which was started while she was in the ED- will titrate dose. 08/[address] shows atrophy. pending MOCA/ACL. continue abilify but may increase and add low dose ativan. 08/26 will increased abilify to 15mg po daily. will add low dose ativan- wonder if it helps with delayed response, and some staring. 08/27: T102, URI Sx. influenza A POS. UA NEG. tamiflu, droplet precautions. increase HS ativan to 1 mg. otherwise continue prior mgmt. 08/28: no requests or complaints, appears drained, resting in bed. continue current mgmt. 08/29- continue to present febrile, this AM 101.F, O2sat on RA 94%, limited oral intake yesterday, ordered labs to monitor dehydration. pt after encouragement, drinking cup of orange juice, some water, bananas and saltine crackers. pending labs. 08/30 continue tx. afebrile today for most of the day. O2sat on RA 96%. less cough, no signs of respiratory distress. taking medications. 08/31 family meeting- discussed filing for guardianship, she is currently taking medications. no longer syntomatic in terms of Influenza. afebrile, no respiratory distress. 09/01 continue tx. will complete guardianship papers 09/02 guardianship filed. continue tx. started on namenda target abulia. abilify increased to 20mg po daily. 09/03 continue tx. 09/04 continue tx. 09/05 continue tx. Reason for continued inpatient stay Substantial Risk for: inability to function Time Spent With Patient Time: Total time managing care of this patient today ____ minutes.
[2024-09-05 20:00] VITALS: BP 100/57; PULSE 75; RESP 16; TEMP 36.6; O2SAT 97
[2024-09-06 08:00] VITALS: BP 145/59; PULSE 65; RESP 16; O2SAT 98
--- NOTE | 2024-09-06 11:20 | P.PNPSI_ITS ---
Subjective Subjective Date of Service: 09/06/24 Reason For Visit: bipolar 1 disorder current or most recent epi Subjective Notes: Conditional Voluntary Interim History: Pt sleeping through the night. Mostly in bed, not social with peers. She is in bed, asking to be changed but when asked if he is soiled denies. She has stayed more in her room. She reports doing well No SI/HI. Appears internally preoccupied. she does take medications. She avoids social interactions. Review of Systems Review of Systems Pt denies chest pain. No abdominal pain. No diarrhea or constipation. Mental Status Exam Mental Status Exam Narrative: Appearance: constricted affect, in NAD, malnourished, very poor dental hygiene (unbothered by it). Behavior: somewhat guarded, Psychomotor: some retardation Speech: mostly clear, delayed response, minimally spontaneous TP: poverty of thought TC: agreeing with not being able to care for herself. Mood: good Affect:constricted SI: none HI: none VH/AH: denies but may be internally preoccupied Delusions: no overt delusional content noted or reported Insight/judgment: impaired x 2. Memory/cog: alert, oriented x 3. Diagnostics Vital Signs (24Hr): Vital Signs - 24 hr 09/05/24 20:00 09/06/24 08:00 Temperature 97.9 F Pulse Rate 75 65 Respiratory Rate 16 16 Blood Pressure 100/57 L 145/59 H Pulse Oximetry 97 98 Oxygen Delivery Method Room Air Room Air BMI result Body Mass Index 20.1 Labs 08/27/24 10:00 08/29/24 17:32 Imaging Radiology Impressions: ITS Impressions Head CT 08/25/24 11:33 IMPRESSION: No acute intracranial abnormality. Electronically signed by: Cj Colunga MD 08/25/2024 12:12 PM [facility] Medications Medications Current Medications Acetaminophen (Acetaminophen 325 Mg Tablet) 650 mg PO Q6H PRN PRN Reason: Headache/Pain, Scale 1-10 Last Admin: 08/30/24 20:35 Dose: 650 mg Al Hydroxide/Mg Hydroxide (Magnesium Hydrox/Alum Hydrox 30 Ml Oral.Susp) 30 ml PO Q6H PRN PRN Reason: Heartburn/Nausea Aripiprazole (Aripiprazole 20 Mg Tablet) 20 mg PO DAILY [facility] Last Admin: 09/06/24 08:28 Dose: 20 mg Benzocaine (Throat Lozenge, Medicated Lozenge) 1 lozenge MUCOUS MEM Q1H PRN PRN Reason: Sore Throat Last Admin: 09/01/24 06:09 Dose: 1 lozenge Guaifenesin/Dextromethorphan (Guaifenesin Dm 200/20/10 Ml 10 Ml Syrup) 10 ml PO Q4H PRN PRN Reason: Cough Last Admin: 08/30/24 05:47 Dose: 10 ml Levothyroxine Sodium (Levothyroxine Sodium 75 Mcg Tablet) 75 mcg PO DAILY@0630 [facility] Last Admin: 09/06/24 05:58 Dose: 75 mcg Lidocaine/Diphenhydr/Alum/Mg/Simeth (Mag&Al/Sim/Diphenhyd/Lidocaine 10 Ml Oral.Susp) 10 ml PO Q6H PRN; Protocol PRN Reason: Painful Gums Last Admin: 08/26/24 13:38 Dose: 10 ml Lorazepam (Lorazepam 0.5 Mg Tablet) 0.5 mg PO BID [facility] Last Admin: 09/06/24 08:29 Dose: 0.5 mg Magnesium Hydroxide (Milk Of Magnesia 30 Ml Oral.Susp) 30 ml PO DAILY PRN PRN Reason: Constipation Memantine (Memantine Hcl 5 Mg Tablet) 5 mg PO DAILY [facility] Last Admin: 09/06/24 08:29 Dose: 5 mg Olanzapine (Olanzapine Odt 10 Mg Tab.Rapdis) 5 mg TRANSLINGU Q6H PRN PRN Reason: Agitation Pravastatin Sodium (Pravastatin Sodium 40 Mg Tablet) 40 mg PO BEDTIME [facility] Last Admin: 09/05/24 20:16 Dose: 40 mg Vitamin D (Cholecalciferol (Vitamin D3) 25 Mcg Tablet) 50 mcg PO DAILY [facility] Last Admin: 09/06/24 08:29 Dose: 50 mcg Allergies Allergies Allergy/AdvReac Type Severity Reaction Status Date / Time meperidine [From Demerol] AdvReac Intermediate Rash Verified 08/23/24 19:34 morphine AdvReac Intermediate Rash Verified 08/23/24 19:35 Sulfa (Sulfonamide AdvReac Intermediate Rash Verified 08/23/24 19:36 Antibiotics) Assessment & Plan Assessment & Plan (1) Schizoaffective disorder: Status: Acute Code(s): F25.9 - Schizoaffective disorder, unspecified Plan Ms. Thomas is a 69 year-old woman with hx of Bipolar Disorder, she currently presents with several symptoms suggestive of negative symptoms seem usually in schizoaffective disorder including constricted affect, abulia (some acknowledgment that she needed to initiate certain activities like going to dentist but still not doing so for unclear reasons). No overt paranoid delusions, her delayed response may be signs of thought blocking and underlying psychosis. She is in agreement to receive treatment and complete work up to also assess her memory and cognition. We discussed restarting abilify, which was started while she was in the ED- will titrate dose. 08/[address] shows atrophy. pending MOCA/ACL. continue abilify but may increase and add low dose ativan. 08/26 will increased abilify to 15mg po daily. will add low dose ativan- wonder if it helps with delayed response, and some staring. 08/27: T102, URI Sx. influenza A POS. UA NEG. tamiflu, droplet precautions. increase HS ativan to 1 mg. otherwise continue prior mgmt. 08/28: no requests or complaints, appears drained, resting in bed. continue current mgmt. 08/29- continue to present febrile, this AM 101.F, O2sat on RA 94%, limited oral intake yesterday, ordered labs to monitor dehydration. pt after encouragement, drinking cup of orange juice, some water, bananas and saltine crackers. pending labs. 08/30 continue tx. afebrile today for most of the day. O2sat on RA 96%. less cough, no signs of respiratory distress. taking medications. 08/31 family meeting- discussed filing for guardianship, she is currently taking medications. no longer syntomatic in terms of Influenza. afebrile, no respiratory distress. 09/01 continue tx. will complete guardianship papers 09/02 guardianship filed. continue tx. started on namenda target abulia. abilify increased to 20mg po daily. 09/03 continue tx. 09/04 continue tx. 09/05 continue tx. 09/06 continue tx. Reason for continued inpatient stay Substantial Risk for: inability to function Time Spent With Patient Time: Total time managing care of this patient today ____ minutes.
[2024-09-06 19:49] VITALS: BP 104/49; PULSE 72; RESP 16; TEMP 37.1; O2SAT 96
[2024-09-07 09:00] VITALS: BP 119/56; PULSE 82; RESP 16; TEMP 36.8; O2SAT 96
--- NOTE | 2024-09-07 16:40 | HO.PSYCHPN ---
Subjective Subjective Date of Service: 09/07/24 Reason For Visit: bipolar 1 disorder current or most recent epi Subjective Notes: Conditional Voluntary Interim History: Pt sleeping through the night. Mostly in bed, not social with peers. She is in bed, asking to be changed but when asked if he is soiled denies. She has stayed more in her room. She reports doing well No SI/HI. Appears internally preoccupied. she does take medications. She avoids social interactions. Review of Systems Review of Systems Pt denies chest pain. No abdominal pain. No diarrhea or constipation. Mental Status Exam Mental Status Exam Narrative: Appearance: constricted affect, in NAD, malnourished, very poor dental hygiene (unbothered by it). Behavior: somewhat guarded, Psychomotor: some retardation Speech: mostly clear, delayed response, minimally spontaneous TP: poverty of thought TC: agreeing with not being able to care for herself. Mood: good Affect:constricted SI: none HI: none VH/AH: denies but may be internally preoccupied Delusions: no overt delusional content noted or reported Insight/judgment: impaired x 2. Memory/cog: alert, oriented x 3. Diagnostics Vital Signs (24Hr): Vital Signs - 24 hr 09/06/24 19:49 09/07/24 09:00 Temperature 98.7 F 98.2 F Pulse Rate 72 82 Respiratory Rate 16 16 Blood Pressure 104/49 L 119/56 L Pulse Oximetry 96 96 Oxygen Delivery Method Room Air Room Air BMI result Body Mass Index 20.1 Labs 08/27/24 10:00 08/29/24 17:32 Imaging Radiology Impressions: ITS Impressions Head CT 08/25/24 11:33 IMPRESSION: No acute intracranial abnormality. Electronically signed by: Cj Colunga MD 08/25/2024 12:12 PM [facility] Medications Medications Current Medications Acetaminophen (Acetaminophen 325 Mg Tablet) 650 mg PO Q6H PRN PRN Reason: Headache/Pain, Scale 1-10 Last Admin: 08/30/24 20:35 Dose: 650 mg Al Hydroxide/Mg Hydroxide (Magnesium Hydrox/Alum Hydrox 30 Ml Oral.Susp) 30 ml PO Q6H PRN PRN Reason: Heartburn/Nausea Aripiprazole (Aripiprazole 20 Mg Tablet) 20 mg PO DAILY [facility] Last Admin: 09/07/24 09:02 Dose: 20 mg Benzocaine (Throat Lozenge, Medicated Lozenge) 1 lozenge MUCOUS MEM Q1H PRN PRN Reason: Sore Throat Last Admin: 09/01/24 06:09 Dose: 1 lozenge Guaifenesin/Dextromethorphan (Guaifenesin Dm 200/20/10 Ml 10 Ml Syrup) 10 ml PO Q4H PRN PRN Reason: Cough Last Admin: 08/30/24 05:47 Dose: 10 ml Levothyroxine Sodium (Levothyroxine Sodium 75 Mcg Tablet) 75 mcg PO DAILY@0630 [facility] Last Admin: 09/07/24 06:23 Dose: 75 mcg Lidocaine/Diphenhydr/Alum/Mg/Simeth (Mag&Al/Sim/Diphenhyd/Lidocaine 10 Ml Oral.Susp) 10 ml PO Q6H PRN; Protocol PRN Reason: Painful Gums Last Admin: 08/26/24 13:38 Dose: 10 ml Lorazepam (Lorazepam 0.5 Mg Tablet) 0.5 mg PO BID [facility] Last Admin: 09/07/24 09:01 Dose: 0.5 mg Magnesium Hydroxide (Milk Of Magnesia 30 Ml Oral.Susp) 30 ml PO DAILY PRN PRN Reason: Constipation Memantine (Memantine Hcl 5 Mg Tablet) 5 mg PO DAILY [facility] Last Admin: 09/07/24 09:02 Dose: 5 mg Olanzapine (Olanzapine Odt 10 Mg Tab.Rapdis) 5 mg TRANSLINGU Q6H PRN PRN Reason: Agitation Pravastatin Sodium (Pravastatin Sodium 40 Mg Tablet) 40 mg PO BEDTIME [facility] Last Admin: 09/06/24 20:47 Dose: 40 mg Vitamin D (Cholecalciferol (Vitamin D3) 25 Mcg Tablet) 50 mcg PO DAILY [facility] Last Admin: 09/07/24 09:01 Dose: 50 mcg Allergies Allergies Allergy/AdvReac Type Severity Reaction Status Date / Time meperidine [From Demerol] AdvReac Intermediate Rash Verified 08/23/24 19:34 morphine AdvReac Intermediate Rash Verified 08/23/24 19:35 Sulfa (Sulfonamide AdvReac Intermediate Rash Verified 08/23/24 19:36 Antibiotics) Assessment & Plan Assessment & Plan (1) Schizoaffective disorder: Status: Acute Code(s): F25.9 - Schizoaffective disorder, unspecified Plan Ms. Thomas is a 69 year-old woman with hx of Bipolar Disorder, she currently presents with several symptoms suggestive of negative symptoms seem usually in schizoaffective disorder including constricted affect, abulia (some acknowledgment that she needed to initiate certain activities like going to dentist but still not doing so for unclear reasons). No overt paranoid delusions, her delayed response may be signs of thought blocking and underlying psychosis. She is in agreement to receive treatment and complete work up to also assess her memory and cognition. We discussed restarting abilify, which was started while she was in the ED- will titrate dose. 08/[address] shows atrophy. pending MOCA/ACL. continue abilify but may increase and add low dose ativan. 08/26 will increased abilify to 15mg po daily. will add low dose ativan- wonder if it helps with delayed response, and some staring. 08/27: T102, URI Sx. influenza A POS. UA NEG. tamiflu, droplet precautions. increase HS ativan to 1 mg. otherwise continue prior mgmt. 08/28: no requests or complaints, appears drained, resting in bed. continue current mgmt. 08/29- continue to present febrile, this AM 101.F, O2sat on RA 94%, limited oral intake yesterday, ordered labs to monitor dehydration. pt after encouragement, drinking cup of orange juice, some water, bananas and saltine crackers. pending labs. 08/30 continue tx. afebrile today for most of the day. O2sat on RA 96%. less cough, no signs of respiratory distress. taking medications. 08/31 family meeting- discussed filing for guardianship, she is currently taking medications. no longer syntomatic in terms of Influenza. afebrile, no respiratory distress. 09/01 continue tx. will complete guardianship papers 09/02 guardianship filed. continue tx. started on namenda target abulia. abilify increased to 20mg po daily. 09/03 continue tx. 09/04 continue tx. 09/05 continue tx. 09/06 continue tx. 09/07 continue tx. Reason for continued inpatient stay Substantial Risk for: inability to function Time Spent With Patient Time: Total time managing care of this patient today ____ minutes.
[2024-09-07 20:00] VITALS: BP 113/53; PULSE 81; RESP 18; TEMP 36.8; O2SAT 97
[2024-09-08 08:00] VITALS: BP 90/52; PULSE 85; RESP 16; O2SAT 96
[2024-09-08 11:01] VITALS: BMI 20.3
--- NOTE | 2024-09-08 14:57 | P.PNPSI_ITS ---
Subjective Subjective Date of Service: 09/08/24 Reason For Visit: bipolar 1 disorder current or most recent epi Interim History: seen in her bed. resting. rousable. no issues, questions, or complaints. Mental Status Exam Mental Status Exam Narrative: Appearance: constricted affect, in NAD, malnourished, very poor dental hygiene (unbothered by it). Behavior: somewhat guarded, Psychomotor: some retardation Speech: mostly clear, delayed response, minimally spontaneous TP: poverty of thought TC: no questions or complaints Mood: good Affect:constricted SI: none HI: none VH/AH: denies but may be internally preoccupied Delusions: no overt delusional content noted or reported Insight/judgment: impaired x 2. Memory/cog: alert, oriented x 3. Diagnostics Vital Signs (24Hr): Vital Signs - 24 hr 09/07/24 20:00 09/08/24 08:00 Temperature 98.2 F Pulse Rate 81 85 Respiratory Rate 18 16 Blood Pressure 113/53 L 90/52 L Pulse Oximetry 97 96 Oxygen Delivery Method Room Air Room Air BMI result Body Mass Index 20.3 Labs 08/27/24 10:00 08/29/24 17:32 Imaging Radiology Impressions: ITS Impressions Head CT 08/25/24 11:33 IMPRESSION: No acute intracranial abnormality. Electronically signed by: Cj Colunga MD 08/25/2024 12:12 PM [facility] Medications Medications Current Medications Acetaminophen (Acetaminophen 325 Mg Tablet) 650 mg PO Q6H PRN PRN Reason: Headache/Pain, Scale 1-10 Last Admin: 08/30/24 20:35 Dose: 650 mg Al Hydroxide/Mg Hydroxide (Magnesium Hydrox/Alum Hydrox 30 Ml Oral.Susp) 30 ml PO Q6H PRN PRN Reason: Heartburn/Nausea Aripiprazole (Aripiprazole 20 Mg Tablet) 20 mg PO DAILY [facility] Last Admin: 09/08/24 09:30 Dose: 20 mg Benzocaine (Throat Lozenge, Medicated Lozenge) 1 lozenge MUCOUS MEM Q1H PRN PRN Reason: Sore Throat Last Admin: 09/01/24 06:09 Dose: 1 lozenge Guaifenesin/Dextromethorphan (Guaifenesin Dm 200/20/10 Ml 10 Ml Syrup) 10 ml PO Q4H PRN PRN Reason: Cough Last Admin: 08/30/24 05:47 Dose: 10 ml Levothyroxine Sodium (Levothyroxine Sodium 75 Mcg Tablet) 75 mcg PO DAILY@0630 [facility] Last Admin: 09/08/24 06:28 Dose: 75 mcg Lidocaine/Diphenhydr/Alum/Mg/Simeth (Mag&Al/Sim/Diphenhyd/Lidocaine 10 Ml Oral.Susp) 10 ml PO Q6H PRN; Protocol PRN Reason: Painful Gums Last Admin: 08/26/24 13:38 Dose: 10 ml Lorazepam (Lorazepam 0.5 Mg Tablet) 0.5 mg PO BID [facility] Last Admin: 09/08/24 09:30 Dose: 0.5 mg Magnesium Hydroxide (Milk Of Magnesia 30 Ml Oral.Susp) 30 ml PO DAILY PRN PRN Reason: Constipation Memantine (Memantine Hcl 5 Mg Tablet) 5 mg PO DAILY [facility] Last Admin: 09/08/24 09:30 Dose: 5 mg Olanzapine (Olanzapine Odt 10 Mg Tab.Rapdis) 5 mg TRANSLINGU Q6H PRN PRN Reason: Agitation Pravastatin Sodium (Pravastatin Sodium 40 Mg Tablet) 40 mg PO BEDTIME [facility] Last Admin: 09/07/24 21:11 Dose: 40 mg Vitamin D (Cholecalciferol (Vitamin D3) 25 Mcg Tablet) 50 mcg PO DAILY [facility] Last Admin: 09/08/24 09:30 Dose: 50 mcg Allergies Allergies Allergy/AdvReac Type Severity Reaction Status Date / Time meperidine [From Demerol] AdvReac Intermediate Rash Verified 08/23/24 19:34 morphine AdvReac Intermediate Rash Verified 08/23/24 19:35 Sulfa (Sulfonamide AdvReac Intermediate Rash Verified 08/23/24 19:36 Antibiotics) Assessment & Plan Assessment & Plan (1) Schizoaffective disorder: Status: Acute Code(s): F25.9 - Schizoaffective disorder, unspecified Plan Ms. Thomas is a 69 year-old woman with hx of Bipolar Disorder, she currently presents with several symptoms suggestive of negative symptoms seem usually in schizoaffective disorder including constricted affect, abulia (some acknowledgment that she needed to initiate certain activities like going to dentist but still not doing so for unclear reasons). No overt paranoid delusions, her delayed response may be signs of thought blocking and underlying psychosis. She is in agreement to receive treatment and complete work up to also assess her memory and cognition. We discussed restarting abilify, which was started while she was in the ED- will titrate dose. 08/[address] shows atrophy. pending MOCA/ACL. continue abilify but may increase and add low dose ativan. 08/26 will increased abilify to 15mg po daily. will add low dose ativan- wonder if it helps with delayed response, and some staring. 08/27: T102, URI Sx. influenza A POS. UA NEG. tamiflu, droplet precautions. increase HS ativan to 1 mg. otherwise continue prior mgmt. 08/28: no requests or complaints, appears drained, resting in bed. continue current mgmt. 08/29- continue to present febrile, this AM 101.F, O2sat on RA 94%, limited oral intake yesterday, ordered labs to monitor dehydration. pt after encouragement, drinking cup of orange juice, some water, bananas and saltine crackers. pending labs. 08/30 continue tx. afebrile today for most of the day. O2sat on RA 96%. less cough, no signs of respiratory distress. taking medications. 08/31 family meeting- discussed filing for guardianship, she is currently taking medications. no longer syntomatic in terms of Influenza. afebrile, no respiratory distress. 09/01 continue tx. will complete guardianship papers 09/02 guardianship filed. continue tx. started on namenda target abulia. abilify increased to 20mg po daily. 09/03 continue tx. 09/04 continue tx. 09/05 continue tx. 09/06 continue tx. 09/07 continue tx. 09/08: stable. no questions or complaints. continue current mgmt. Reason for continued inpatient stay Substantial Risk for: inability to function Time Spent With Patient Time: Total time managing care of this patient today ____ minutes.
[2024-09-09 08:00] VITALS: BP 115/53; PULSE 83; RESP 16; TEMP 36.1; O2SAT 98
--- NOTE | 2024-09-09 10:57 | P.PNPSI_ITS ---
Subjective Subjective Date of Service: 09/09/24 Reason For Visit: bipolar 1 disorder current or most recent epi Subjective Notes: Conditional Voluntary Interim History: Pt is mostly in bed and not participatory in groups. When asked, she reports there's nothing wrong about it. She is often dismissive. She denies any physical concerns. She denies SI/HI. She appears somewhat suspicious and not fully forthcoming. No aggression and taking medications as prescribed. She does go out for meals. Review of Systems Review of Systems Pt denies chest pain. No abdominal pain. No diarrhea or constipation. Mental Status Exam Mental Status Exam Narrative: Appearance: constricted affect, in NAD, malnourished, very poor dental hygiene (unbothered by it). Behavior: somewhat guarded, Psychomotor: some retardation Speech: mostly clear, less latency, minimally spontaneous TP: poverty of thought TC: no questions or complaints Mood: good Affect:constricted SI: none HI: none VH/AH: denies but may be internally preoccupied Delusions: no overt delusional content noted or reported Insight/judgment: impaired x 2. Memory/cog: alert, oriented x 3. Diagnostics Vital Signs (24Hr): Vital Signs - 24 hr 09/09/24 08:00 Temperature 97.0 F Pulse Rate 83 Respiratory Rate 16 Blood Pressure 115/53 L Pulse Oximetry 98 Oxygen Delivery Method Room Air BMI result Body Mass Index 20.3 Labs 08/27/24 10:00 08/29/24 17:32 Imaging Radiology Impressions: ITS Impressions Head CT 08/25/24 11:33 IMPRESSION: No acute intracranial abnormality. Electronically signed by: Cj Colunga MD 08/25/2024 12:12 PM [facility] Medications Medications Current Medications Acetaminophen (Acetaminophen 325 Mg Tablet) 650 mg PO Q6H PRN PRN Reason: Headache/Pain, Scale 1-10 Last Admin: 08/30/24 20:35 Dose: 650 mg Al Hydroxide/Mg Hydroxide (Magnesium Hydrox/Alum Hydrox 30 Ml Oral.Susp) 30 ml PO Q6H PRN PRN Reason: Heartburn/Nausea Aripiprazole (Aripiprazole 20 Mg Tablet) 20 mg PO DAILY [facility] Last Admin: 09/09/24 08:09 Dose: 20 mg Benzocaine (Throat Lozenge, Medicated Lozenge) 1 lozenge MUCOUS MEM Q1H PRN PRN Reason: Sore Throat Last Admin: 09/01/24 06:09 Dose: 1 lozenge Guaifenesin/Dextromethorphan (Guaifenesin Dm 200/20/10 Ml 10 Ml Syrup) 10 ml PO Q4H PRN PRN Reason: Cough Last Admin: 08/30/24 05:47 Dose: 10 ml Levothyroxine Sodium (Levothyroxine Sodium 75 Mcg Tablet) 75 mcg PO DAILY@0630 [facility] Last Admin: 09/09/24 05:23 Dose: 75 mcg Lidocaine/Diphenhydr/Alum/Mg/Simeth (Mag&Al/Sim/Diphenhyd/Lidocaine 10 Ml Oral.Susp) 10 ml PO Q6H PRN; Protocol PRN Reason: Painful Gums Last Admin: 08/26/24 13:38 Dose: 10 ml Lorazepam (Lorazepam 0.5 Mg Tablet) 0.5 mg PO BID [facility] Last Admin: 09/09/24 08:09 Dose: 0.5 mg Magnesium Hydroxide (Milk Of Magnesia 30 Ml Oral.Susp) 30 ml PO DAILY PRN PRN Reason: Constipation Memantine (Memantine Hcl 5 Mg Tablet) 5 mg PO DAILY [facility] Last Admin: 09/09/24 08:09 Dose: 5 mg Olanzapine (Olanzapine Odt 10 Mg Tab.Rapdis) 5 mg TRANSLINGU Q6H PRN PRN Reason: Agitation Pravastatin Sodium (Pravastatin Sodium 40 Mg Tablet) 40 mg PO BEDTIME [facility] Last Admin: 09/08/24 20:05 Dose: 40 mg Vitamin D (Cholecalciferol (Vitamin D3) 25 Mcg Tablet) 50 mcg PO DAILY [facility] Last Admin: 09/09/24 08:09 Dose: 50 mcg Allergies Allergies Allergy/AdvReac Type Severity Reaction Status Date / Time meperidine [From Demerol] AdvReac Intermediate Rash Verified 08/23/24 19:34 morphine AdvReac Intermediate Rash Verified 08/23/24 19:35 Sulfa (Sulfonamide AdvReac Intermediate Rash Verified 08/23/24 19:36 Antibiotics) Assessment & Plan Assessment & Plan (1) Schizoaffective disorder: Status: Acute Code(s): F25.9 - Schizoaffective disorder, unspecified Plan Ms. Thomas is a 69 year-old woman with hx of Bipolar Disorder, she currently presents with several symptoms suggestive of negative symptoms seem usually in schizoaffective disorder including constricted affect, abulia (some acknowledgment that she needed to initiate certain activities like going to dentist but still not doing so for unclear reasons). No overt paranoid delusions, her delayed response may be signs of thought blocking and underlying psychosis. She is in agreement to receive treatment and complete work up to also assess her memory and cognition. We discussed restarting abilify, which was started while she was in the ED- will titrate dose. 08/[address] shows atrophy. pending MOCA/ACL. continue abilify but may increase and add low dose ativan. 08/26 will increased abilify to 15mg po daily. will add low dose ativan- wonder if it helps with delayed response, and some staring. 08/27: T102, URI Sx. influenza A POS. UA NEG. tamiflu, droplet precautions. increase HS ativan to 1 mg. otherwise continue prior mgmt. 08/28: no requests or complaints, appears drained, resting in bed. continue current mgmt. 08/29- continue to present febrile, this AM 101.F, O2sat on RA 94%, limited oral intake yesterday, ordered labs to monitor dehydration. pt after encouragement, drinking cup of orange juice, some water, bananas and saltine crackers. pending labs. 08/30 continue tx. afebrile today for most of the day. O2sat on RA 96%. less cough, no signs of respiratory distress. taking medications. 08/31 family meeting- discussed filing for guardianship, she is currently taking medications. no longer symptomatic in terms of Influenza. afebrile, no respiratory distress. 09/01 continue tx. will complete guardianship papers 09/02 guardianship filed. continue tx. started on namenda target abulia. abilify increased to 20mg po daily. 09/03 continue tx. 09/04 continue tx. 09/05 continue tx. 09/06 continue tx. 09/07 continue tx. 09/08: stable. no questions or complaints. continue current mgmt. 09/09 will increase abilify to 30mg po daily. Reason for continued inpatient stay Substantial Risk for: inability to function Time Spent With Patient Time: Total time managing care of this patient today ____ minutes.
[2024-09-09 20:00] VITALS: BP 115/58; PULSE 67; RESP 16; TEMP 36.9; O2SAT 96
[2024-09-10 08:24] VITALS: BP 121/63; PULSE 86; RESP 16; TEMP 36.3; O2SAT 97
[2024-09-10] MEDS: ARIPiprazole 30 MG TABLET PO (08:46)
[2024-09-10 20:00] VITALS: BP 108/57; PULSE 67; RESP 16; TEMP 37.2; O2SAT 95
--- NOTE | 2024-09-10 23:25 | HO.PSYCHPN ---
Subjective Subjective Date of Service: 09/10/24 Reason For Visit: bipolar 1 disorder current or most recent epi Subjective Notes: Conditional Voluntary Interim History: Patient seen chart reviewed case reviewed in rounds/treatment planning with staff. Nursing staff reports that the patient has mostly been isolative she does come out for meals. Patient very limited in engagement Medication Compliance: Yes Mental Status Exam Mental Status Exam Narrative: Patient seen in her room the patient is flat seems somewhat apathetic. Poverty of content denies hallucinations or delusional material very limited engagement Diagnostics Vital Signs (24Hr): Vital Signs - 24 hr 09/10/24 08:24 09/10/24 20:00 Temperature 97.3 F 98.9 F Pulse Rate 86 67 Respiratory Rate 16 16 Blood Pressure 121/63 108/57 L Pulse Oximetry 97 95 Oxygen Delivery Method Room Air Room Air BMI result Body Mass Index 20.3 Labs 08/27/24 10:00 08/29/24 17:32 Imaging Radiology Impressions: ITS Impressions Head CT 08/25/24 11:33 IMPRESSION: No acute intracranial abnormality. Electronically signed by: Cj Colunga MD 08/25/2024 12:12 PM [facility] Medications Medications Current Medications Acetaminophen (Acetaminophen 325 Mg Tablet) 650 mg PO Q6H PRN PRN Reason: Headache/Pain, Scale 1-10 Last Admin: 08/30/24 20:35 Dose: 650 mg Al Hydroxide/Mg Hydroxide (Magnesium Hydrox/Alum Hydrox 30 Ml Oral.Susp) 30 ml PO Q6H PRN PRN Reason: Heartburn/Nausea Aripiprazole (Aripiprazole 30 Mg Tablet) 30 mg PO DAILY [facility] Last Admin: 09/10/24 08:46 Dose: 30 mg Benzocaine (Throat Lozenge, Medicated Lozenge) 1 lozenge MUCOUS MEM Q1H PRN PRN Reason: Sore Throat Last Admin: 09/01/24 06:09 Dose: 1 lozenge Guaifenesin/Dextromethorphan (Guaifenesin Dm 200/20/10 Ml 10 Ml Syrup) 10 ml PO Q4H PRN PRN Reason: Cough Last Admin: 08/30/24 05:47 Dose: 10 ml Levothyroxine Sodium (Levothyroxine Sodium 75 Mcg Tablet) 75 mcg PO DAILY@0630 [facility] Last Admin: 09/10/24 06:32 Dose: 75 mcg Lidocaine/Diphenhydr/Alum/Mg/Simeth (Mag&Al/Sim/Diphenhyd/Lidocaine 10 Ml Oral.Susp) 10 ml PO Q6H PRN; Protocol PRN Reason: Painful Gums Last Admin: 08/26/24 13:38 Dose: 10 ml Lorazepam (Lorazepam 0.5 Mg Tablet) 0.5 mg PO BID [facility] Last Admin: 09/10/24 20:28 Dose: 0.5 mg Magnesium Hydroxide (Milk Of Magnesia 30 Ml Oral.Susp) 30 ml PO DAILY PRN PRN Reason: Constipation Memantine (Memantine Hcl 5 Mg Tablet) 5 mg PO DAILY [facility] Last Admin: 09/10/24 08:45 Dose: 5 mg Olanzapine (Olanzapine Odt 10 Mg Tab.Rapdis) 5 mg TRANSLINGU Q6H PRN PRN Reason: Agitation Pravastatin Sodium (Pravastatin Sodium 40 Mg Tablet) 40 mg PO BEDTIME [facility] Last Admin: 09/10/24 20:28 Dose: 40 mg Vitamin D (Cholecalciferol (Vitamin D3) 25 Mcg Tablet) 50 mcg PO DAILY [facility] Last Admin: 09/10/24 08:45 Dose: 50 mcg Allergies Allergies Allergy/AdvReac Type Severity Reaction Status Date / Time meperidine [From Demerol] AdvReac Intermediate Rash Verified 08/23/24 19:34 morphine AdvReac Intermediate Rash Verified 08/23/24 19:35 Sulfa (Sulfonamide AdvReac Intermediate Rash Verified 08/23/24 19:36 Antibiotics) Assessment & Plan Assessment & Plan (1) Schizoaffective disorder: Status: Acute Code(s): F25.9 - Schizoaffective disorder, unspecified Plan Ms. Thomas is a 69 year-old woman with hx of Bipolar Disorder, she currently presents with several symptoms suggestive of negative symptoms seem usually in schizoaffective disorder including constricted affect, abulia (some acknowledgment that she needed to initiate certain activities like going to dentist but still not doing so for unclear reasons). No overt paranoid delusions, her delayed response may be signs of thought blocking and underlying psychosis. She is in agreement to receive treatment and complete work up to also assess her memory and cognition. We discussed restarting abilify, which was started while she was in the ED- will titrate dose. 08/[address] shows atrophy. pending MOCA/ACL. continue abilify but may increase and add low dose ativan. 08/26 will increased abilify to 15mg po daily. will add low dose ativan- wonder if it helps with delayed response, and some staring. 08/27: T102, URI Sx. influenza A POS. UA NEG. tamiflu, droplet precautions. increase HS ativan to 1 mg. otherwise continue prior mgmt. 08/28: no requests or complaints, appears drained, resting in bed. continue current mgmt. 08/29- continue to present febrile, this AM 101.F, O2sat on RA 94%, limited oral intake yesterday, ordered labs to monitor dehydration. pt after encouragement, drinking cup of orange juice, some water, bananas and saltine crackers. pending labs. 08/30 continue tx. afebrile today for most of the day. O2sat on RA 96%. less cough, no signs of respiratory distress. taking medications. 08/31 family meeting- discussed filing for guardianship, she is currently taking medications. no longer symptomatic in terms of Influenza. afebrile, no respiratory distress. 09/01 continue tx. will complete guardianship papers 09/02 guardianship filed. continue tx. started on namenda target abulia. abilify increased to 20mg po daily. 09/03 continue tx. 09/04 continue tx. 09/05 continue tx. 09/06 continue tx. 09/07 continue tx. 09/08: stable. no questions or complaints. continue current mgmt. 09/09 will increase abilify to 30mg po daily. 09/10/2024 Question if increase Abilify is worsening blunting and bulimia Informed Consent: further education needed Reason for continued inpatient stay Substantial Risk for: inability to function and rapid decompensation Time Spent With Patient Time: Total time managing care of this patient today ____ minutes.
[2024-09-11 08:00] VITALS: BP 130/76; PULSE 106; RESP 18; TEMP 36.8; O2SAT 97
[2024-09-11] MEDS: ARIPiprazole 30 MG TABLET PO (08:31)
[2024-09-11 13:56] VITALS: BMI 20.4
[2024-09-11 20:00] VITALS: BP 107/68; PULSE 104; RESP 16; TEMP 35.6; O2SAT 98
--- NOTE | 2024-09-11 22:20 | HO.PSYCHPN ---
Subjective Subjective Date of Service: 09/10/24 Reason For Visit: bipolar 1 disorder current or most recent epi Subjective Notes: Conditional Voluntary Interim History: Patient seen in psychiatric follow-up patient apathetic minimally engaged no complaints when seen. Has been started on Namenda for apathy limited emotion Medication Compliance: Yes Mental Status Exam Mental Status Exam Narrative: Patient flat apathetic describes her mood as good poverty of content no gross delusional material or hallucinations insight limited Diagnostics Vital Signs (24Hr): Vital Signs - 24 hr 09/11/24 08:00 09/11/24 20:00 Temperature 98.2 F 96.0 F L Pulse Rate 106 H 104 H Respiratory Rate 18 16 Blood Pressure 130/76 107/68 Pulse Oximetry 97 98 Oxygen Delivery Method Room Air Room Air BMI result Body Mass Index 20.4 Labs 08/27/24 10:00 08/29/24 17:32 Imaging Radiology Impressions: ITS Impressions Head CT 08/25/24 11:33 IMPRESSION: No acute intracranial abnormality. Electronically signed by: Cj Colunga MD 08/25/2024 12:12 PM [facility] Medications Medications Current Medications Acetaminophen (Acetaminophen 325 Mg Tablet) 650 mg PO Q6H PRN PRN Reason: Headache/Pain, Scale 1-10 Last Admin: 08/30/24 20:35 Dose: 650 mg Al Hydroxide/Mg Hydroxide (Magnesium Hydrox/Alum Hydrox 30 Ml Oral.Susp) 30 ml PO Q6H PRN PRN Reason: Heartburn/Nausea Aripiprazole (Aripiprazole 30 Mg Tablet) 30 mg PO DAILY [facility] Last Admin: 09/11/24 08:31 Dose: 30 mg Benzocaine (Throat Lozenge, Medicated Lozenge) 1 lozenge MUCOUS MEM Q1H PRN PRN Reason: Sore Throat Last Admin: 09/01/24 06:09 Dose: 1 lozenge Guaifenesin/Dextromethorphan (Guaifenesin Dm 200/20/10 Ml 10 Ml Syrup) 10 ml PO Q4H PRN PRN Reason: Cough Last Admin: 08/30/24 05:47 Dose: 10 ml Levothyroxine Sodium (Levothyroxine Sodium 75 Mcg Tablet) 75 mcg PO DAILY@0630 [facility] Last Admin: 09/11/24 06:25 Dose: 75 mcg Lidocaine/Diphenhydr/Alum/Mg/Simeth (Mag&Al/Sim/Diphenhyd/Lidocaine 10 Ml Oral.Susp) 10 ml PO Q6H PRN; Protocol PRN Reason: Painful Gums Last Admin: 08/26/24 13:38 Dose: 10 ml Lorazepam (Lorazepam 0.5 Mg Tablet) 0.5 mg PO BID [facility] Last Admin: 09/11/24 21:22 Dose: 0.5 mg Magnesium Hydroxide (Milk Of Magnesia 30 Ml Oral.Susp) 30 ml PO DAILY PRN PRN Reason: Constipation Memantine (Memantine Hcl 5 Mg Tablet) 5 mg PO DAILY [facility] Last Admin: 09/11/24 08:30 Dose: 5 mg Olanzapine (Olanzapine Odt 10 Mg Tab.Rapdis) 5 mg TRANSLINGU Q6H PRN PRN Reason: Agitation Pravastatin Sodium (Pravastatin Sodium 40 Mg Tablet) 40 mg PO BEDTIME [facility] Last Admin: 09/11/24 21:22 Dose: 40 mg Vitamin D (Cholecalciferol (Vitamin D3) 25 Mcg Tablet) 50 mcg PO DAILY [facility] Last Admin: 09/11/24 08:30 Dose: 50 mcg Allergies Allergies Allergy/AdvReac Type Severity Reaction Status Date / Time meperidine [From Demerol] AdvReac Intermediate Rash Verified 08/23/24 19:34 morphine AdvReac Intermediate Rash Verified 08/23/24 19:35 Sulfa (Sulfonamide AdvReac Intermediate Rash Verified 08/23/24 19:36 Antibiotics) Assessment & Plan Assessment & Plan (1) Schizoaffective disorder: Status: Acute Code(s): F25.9 - Schizoaffective disorder, unspecified Plan Ms. Thomas is a 69 year-old woman with hx of Bipolar Disorder, she currently presents with several symptoms suggestive of negative symptoms seem usually in schizoaffective disorder including constricted affect, abulia (some acknowledgment that she needed to initiate certain activities like going to dentist but still not doing so for unclear reasons). No overt paranoid delusions, her delayed response may be signs of thought blocking and underlying psychosis. She is in agreement to receive treatment and complete work up to also assess her memory and cognition. We discussed restarting abilify, which was started while she was in the ED- will titrate dose. 08/[address] shows atrophy. pending MOCA/ACL. continue abilify but may increase and add low dose ativan. 08/26 will increased abilify to 15mg po daily. will add low dose ativan- wonder if it helps with delayed response, and some staring. 08/27: T102, URI Sx. influenza A POS. UA NEG. tamiflu, droplet precautions. increase HS ativan to 1 mg. otherwise continue prior mgmt. 08/28: no requests or complaints, appears drained, resting in bed. continue current mgmt. 08/29- continue to present febrile, this AM 101.F, O2sat on RA 94%, limited oral intake yesterday, ordered labs to monitor dehydration. pt after encouragement, drinking cup of orange juice, some water, bananas and saltine crackers. pending labs. 08/30 continue tx. afebrile today for most of the day. O2sat on RA 96%. less cough, no signs of respiratory distress. taking medications. 08/31 family meeting- discussed filing for guardianship, she is currently taking medications. no longer symptomatic in terms of Influenza. afebrile, no respiratory distress. 09/01 continue tx. will complete guardianship papers 09/02 guardianship filed. continue tx. started on namenda target abulia. abilify increased to 20mg po daily. 09/03 continue tx. 09/04 continue tx. 09/05 continue tx. 09/06 continue tx. 09/07 continue tx. 09/08: stable. no questions or complaints. continue current mgmt. 09/09 will increase abilify to 30mg po daily. 09/10/2024 Question if increase Abilify is worsening blunting and bulimia 09/11/2024 Continue Abilify might consider Latuda Provigil unclear what patient's baseline is Reason for continued inpatient stay Substantial Risk for: inability to function and rapid decompensation Time Spent With Patient Time: Total time managing care of this patient today ____ minutes.
[2024-09-12 08:00] VITALS: BP 122/59; PULSE 85; RESP 18; TEMP 37; O2SAT 98
[2024-09-12] MEDS: ARIPiprazole 30 MG TABLET PO (08:42)
--- NOTE | 2024-09-12 12:10 | P.PNPSI_ITS ---
Subjective Subjective Date of Service: 09/12/24 Reason For Visit: bipolar 1 disorder current or most recent epi Subjective Notes: Conditional Voluntary Healthcare Proxy: Yes Interim History: Pt slept through the night. She is in her room, despite encouragement will not get out of room. She does go out for meals. No SI/HI. no insight into her inability to care for self. suspicious, no overt delusional content reported. Review of Systems Review of Systems Pt denies chest pain. No abdominal pain. No diarrhea or constipation. Diagnostics Vital Signs (24Hr): Vital Signs - 24 hr 09/11/24 20:00 09/12/24 08:00 Temperature 96.0 F L 98.6 F Pulse Rate 104 H 85 Respiratory Rate 16 18 Blood Pressure 107/68 122/59 L Pulse Oximetry 98 98 Oxygen Delivery Method Room Air Room Air BMI result Body Mass Index 20.4 Labs 08/27/24 10:00 08/29/24 17:32 Imaging Radiology Impressions: ITS Impressions Head CT 08/25/24 11:33 IMPRESSION: No acute intracranial abnormality. Electronically signed by: Cj Colunga MD 08/25/2024 12:12 PM [facility] Medications Medications Current Medications Acetaminophen (Acetaminophen 325 Mg Tablet) 650 mg PO Q6H PRN PRN Reason: Headache/Pain, Scale 1-10 Last Admin: 08/30/24 20:35 Dose: 650 mg Al Hydroxide/Mg Hydroxide (Magnesium Hydrox/Alum Hydrox 30 Ml Oral.Susp) 30 ml PO Q6H PRN PRN Reason: Heartburn/Nausea Aripiprazole (Aripiprazole 30 Mg Tablet) 30 mg PO DAILY [facility] Last Admin: 09/12/24 08:42 Dose: 30 mg Benzocaine (Throat Lozenge, Medicated Lozenge) 1 lozenge MUCOUS MEM Q1H PRN PRN Reason: Sore Throat Last Admin: 09/01/24 06:09 Dose: 1 lozenge Guaifenesin/Dextromethorphan (Guaifenesin Dm 200/20/10 Ml 10 Ml Syrup) 10 ml PO Q4H PRN PRN Reason: Cough Last Admin: 08/30/24 05:47 Dose: 10 ml Levothyroxine Sodium (Levothyroxine Sodium 75 Mcg Tablet) 75 mcg PO DAILY@0630 [facility] Last Admin: 09/12/24 06:26 Dose: 75 mcg Lidocaine/Diphenhydr/Alum/Mg/Simeth (Mag&Al/Sim/Diphenhyd/Lidocaine 10 Ml Oral.Susp) 10 ml PO Q6H PRN; Protocol PRN Reason: Painful Gums Last Admin: 08/26/24 13:38 Dose: 10 ml Lorazepam (Lorazepam 0.5 Mg Tablet) 0.5 mg PO BID [facility] Last Admin: 09/12/24 08:42 Dose: 0.5 mg Magnesium Hydroxide (Milk Of Magnesia 30 Ml Oral.Susp) 30 ml PO DAILY PRN PRN Reason: Constipation Memantine (Memantine Hcl 5 Mg Tablet) 5 mg PO DAILY [facility] Last Admin: 09/12/24 08:42 Dose: 5 mg Olanzapine (Olanzapine Odt 10 Mg Tab.Rapdis) 5 mg TRANSLINGU Q6H PRN PRN Reason: Agitation Pravastatin Sodium (Pravastatin Sodium 40 Mg Tablet) 40 mg PO BEDTIME [facility] Last Admin: 09/11/24 21:22 Dose: 40 mg Vitamin D (Cholecalciferol (Vitamin D3) 25 Mcg Tablet) 50 mcg PO DAILY [facility] Last Admin: 09/12/24 08:42 Dose: 50 mcg Allergies Allergies Allergy/AdvReac Type Severity Reaction Status Date / Time meperidine [From Demerol] AdvReac Intermediate Rash Verified 08/23/24 19:34 morphine AdvReac Intermediate Rash Verified 08/23/24 19:35 Sulfa (Sulfonamide AdvReac Intermediate Rash Verified 08/23/24 19:36 Antibiotics) Assessment & Plan Assessment & Plan (1) Schizoaffective disorder: Status: Acute Code(s): F25.9 - Schizoaffective disorder, unspecified Plan Ms. Thomas is a 69 year-old woman with hx of Bipolar Disorder, she currently presents with several symptoms suggestive of negative symptoms seem usually in schizoaffective disorder including constricted affect, abulia (some acknowledgment that she needed to initiate certain activities like going to dentist but still not doing so for unclear reasons). No overt paranoid delusions, her delayed response may be signs of thought blocking and underlying psychosis. She is in agreement to receive treatment and complete work up to also assess her memory and cognition. We discussed restarting abilify, which was started while she was in the ED- will titrate dose. 08/[address] shows atrophy. pending MOCA/ACL. continue abilify but may increase and add low dose ativan. 08/26 will increased abilify to 15mg po daily. will add low dose ativan- wonder if it helps with delayed response, and some staring. 08/27: T102, URI Sx. influenza A POS. UA NEG. tamiflu, droplet precautions. increase HS ativan to 1 mg. otherwise continue prior mgmt. 08/28: no requests or complaints, appears drained, resting in bed. continue current mgmt. 08/29- continue to present febrile, this AM 101.F, O2sat on RA 94%, limited oral intake yesterday, ordered labs to monitor dehydration. pt after encouragement, drinking cup of orange juice, some water, bananas and saltine crackers. pending labs. 08/30 continue tx. afebrile today for most of the day. O2sat on RA 96%. less cough, no signs of respiratory distress. taking medications. 08/31 family meeting- discussed filing for guardianship, she is currently taking medications. no longer symptomatic in terms of Influenza. afebrile, no respiratory distress. 09/01 continue tx. will complete guardianship papers 09/02 guardianship filed. continue tx. started on namenda target abulia. abilify increased to 20mg po daily. 09/03 continue tx. 09/04 continue tx. 09/05 continue tx. 09/06 continue tx. 09/07 continue tx. 09/08: stable. no questions or complaints. continue current mgmt. 09/09 will increase abilify to 30mg po daily. 09/10/2024 Question if increase Abilify is worsening blunting and bulimia 09/11/2024 Continue Abilify might consider Latuda Provigil unclear what patient's baseline is 09/12 continue tx. Reason for continued inpatient stay Substantial Risk for: inability to function Time Spent With Patient Time: Total time managing care of this patient today ____ minutes.
[2024-09-12 20:00] VITALS: BP 110/60; PULSE 70; TEMP 36.7; O2SAT 97
[2024-09-13 08:00] VITALS: BP 131/72; PULSE 92; RESP 18; TEMP 36.7; O2SAT 97
[2024-09-13] MEDS: ARIPiprazole 30 MG TABLET PO (08:51)
--- NOTE | 2024-09-13 19:07 | P.PNPSI_ITS ---
Subjective Subjective Date of Service: 09/13/24 Reason For Visit: bipolar 1 disorder current or most recent epi Subjective Notes: Conditional Voluntary Healthcare Proxy: Yes Interim History: Pt sleeping through the night. She was more visible today but mostly for meals. She is not interacting with peers. She denies VH/AH. She is somewhat suspicious but no overt delusional content reported. She is taking medications as prescribed. Mental Status Exam Mental Status Exam Narrative: Appearance: constricted affect, in NAD, malnourished, very poor dental hygiene (unbothered by it). Behavior: somewhat guarded, Psychomotor: some retardation Speech: mostly clear, less latency, minimally spontaneous TP: poverty of thought TC: no questions or complaints Mood: good Affect:constricted SI: none HI: none VH/AH: denies but may be internally preoccupied Delusions: no overt delusional content noted or reported Insight/judgment: impaired x 2. Memory/cog: alert, oriented x 3. Diagnostics Vital Signs (24Hr): Vital Signs - 24 hr 09/12/24 20:00 09/13/24 08:00 Temperature 98.0 F 98.0 F Pulse Rate 70 92 Respiratory Rate 18 Blood Pressure 110/60 131/72 Pulse Oximetry 97 97 Oxygen Delivery Method Room Air Room Air BMI result Body Mass Index 20.4 Labs 08/27/24 10:00 08/29/24 17:32 Imaging Radiology Impressions: ITS Impressions Head CT 08/25/24 11:33 IMPRESSION: No acute intracranial abnormality. Electronically signed by: Cj Colunga MD 08/25/2024 12:12 PM [facility] [place] Medications Current Medications Acetaminophen (Acetaminophen 325 Mg Tablet) 650 mg PO Q6H PRN PRN Reason: Headache/Pain, Scale 1-10 Last Admin: 08/30/24 20:35 Dose: 650 mg Al Hydroxide/Mg Hydroxide (Magnesium Hydrox/Alum Hydrox 30 Ml Oral.Susp) 30 ml PO Q6H PRN PRN Reason: Heartburn/Nausea Aripiprazole (Aripiprazole 30 Mg Tablet) 30 mg PO DAILY [facility] Last Admin: 09/13/24 08:51 Dose: 30 mg Benzocaine (Throat Lozenge, Medicated Lozenge) 1 lozenge MUCOUS MEM Q1H PRN PRN Reason: Sore Throat Last Admin: 09/01/24 06:09 Dose: 1 lozenge Guaifenesin/Dextromethorphan (Guaifenesin Dm 200/20/10 Ml 10 Ml Syrup) 10 ml PO Q4H PRN PRN Reason: Cough Last Admin: 08/30/24 05:47 Dose: 10 ml Levothyroxine Sodium (Levothyroxine Sodium 75 Mcg Tablet) 75 mcg PO DAILY@0630 [facility] Last Admin: 09/13/24 06:18 Dose: 75 mcg Lidocaine/Diphenhydr/Alum/Mg/Simeth (Mag&Al/Sim/Diphenhyd/Lidocaine 10 Ml Oral.Susp) 10 ml PO Q6H PRN; Protocol PRN Reason: Painful Gums Last Admin: 08/26/24 13:38 Dose: 10 ml Lorazepam (Lorazepam 0.5 Mg Tablet) 0.5 mg PO BID [facility] Last Admin: 09/13/24 08:51 Dose: 0.5 mg Magnesium Hydroxide (Milk Of Magnesia 30 Ml Oral.Susp) 30 ml PO DAILY PRN PRN Reason: Constipation Memantine (Memantine Hcl 5 Mg Tablet) 5 mg PO DAILY [facility] Last Admin: 09/13/24 08:51 Dose: 5 mg Olanzapine (Olanzapine Odt 10 Mg Tab.Rapdis) 5 mg TRANSLINGU Q6H PRN PRN Reason: Agitation Pravastatin Sodium (Pravastatin Sodium 40 Mg Tablet) 40 mg PO BEDTIME [facility] Last Admin: 09/12/24 20:56 Dose: 40 mg Vitamin D (Cholecalciferol (Vitamin D3) 25 Mcg Tablet) 50 mcg PO DAILY [facility] Last Admin: 09/13/24 08:51 Dose: 50 mcg Allergies Allergies Allergy/AdvReac Type Severity Reaction Status Date / Time meperidine [From Demerol] AdvReac Intermediate Rash Verified 08/23/24 19:34 morphine AdvReac Intermediate Rash Verified 08/23/24 19:35 Sulfa (Sulfonamide AdvReac Intermediate Rash Verified 08/23/24 19:36 Antibiotics) Assessment & Plan Assessment & Plan (1) Schizoaffective disorder: Status: Acute Code(s): F25.9 - Schizoaffective disorder, unspecified Plan Ms. Thomas is a 69 year-old woman with hx of Bipolar Disorder, she currently presents with several symptoms suggestive of negative symptoms seem usually in schizoaffective disorder including constricted affect, abulia (some acknowledgment that she needed to initiate certain activities like going to dentist but still not doing so for unclear reasons). No overt paranoid delusions, her delayed response may be signs of thought blocking and underlying psychosis. She is in agreement to receive treatment and complete work up to also assess her memory and cognition. We discussed restarting abilify, which was started while she was in the ED- will titrate dose. 08/[address] shows atrophy. pending MOCA/ACL. continue abilify but may increase and add low dose ativan. 08/26 will increased abilify to 15mg po daily. will add low dose ativan- wonder if it helps with delayed response, and some staring. 08/27: T102, URI Sx. influenza A POS. UA NEG. tamiflu, droplet precautions. increase HS ativan to 1 mg. otherwise continue prior mgmt. 08/28: no requests or complaints, appears drained, resting in bed. continue current mgmt. 08/29- continue to present febrile, this AM 101.F, O2sat on RA 94%, limited oral intake yesterday, ordered labs to monitor dehydration. pt after encouragement, drinking cup of orange juice, some water, bananas and saltine crackers. pending labs. 08/30 continue tx. afebrile today for most of the day. O2sat on RA 96%. less cough, no signs of respiratory distress. taking medications. 08/31 family meeting- discussed filing for guardianship, she is currently taking medications. no longer symptomatic in terms of Influenza. afebrile, no respiratory distress. 09/01 continue tx. will complete guardianship papers 09/02 guardianship filed. continue tx. started on namenda target abulia. abilify increased to 20mg po daily. 09/03 continue tx. 09/04 continue tx. 09/05 continue tx. 09/06 continue tx. 09/07 continue tx. 09/08: stable. no questions or complaints. continue current mgmt. 09/09 will increase abilify to 30mg po daily. 09/10/2024 Question if increase Abilify is worsening blunting and bulimia 09/11/2024 Continue Abilify might consider Latuda Provigil unclear what patient's baseline is 09/12 continue tx. 09/13 continue tx. Reason for continued inpatient stay Substantial Risk for: inability to function Time Spent With Patient Time: Total time managing care of this patient today ____ minutes.
[2024-09-13 19:49] VITALS: BP 113/59; PULSE 83; TEMP 36.8; O2SAT 97
[2024-09-14 08:00] VITALS: BP 110/62; PULSE 85; RESP 16; TEMP 36.6; O2SAT 98
[2024-09-14] MEDS: ARIPiprazole 30 MG TABLET PO (08:17)
[2024-09-14 20:00] VITALS: BP 100/56; PULSE 77; RESP 16; TEMP 37.2; O2SAT 96
--- NOTE | 2024-09-14 22:09 | HO.PSYCHPN ---
Subjective Subjective Date of Service: 09/14/24 Reason For Visit: bipolar 1 disorder current or most recent epi Subjective Notes: Conditional Voluntary Interim History: Pt sleeping through the night. She was more visible today but mostly for meals. She is not interacting with peers nor going to groups. She denies VH/AH. She is somewhat suspicious but no overt delusional content reported. She is taking medications as prescribed. Review of Systems Review of Systems Pt denies chest pain. No abdominal pain. No diarrhea or constipation. Mental Status Exam Mental Status Exam Narrative: Appearance: constricted affect, in NAD, malnourished, very poor dental hygiene (unbothered by it). Behavior: somewhat guarded, Psychomotor: some retardation Speech: mostly clear, less latency, minimally spontaneous TP: poverty of thought TC: no questions or complaints Mood: good Affect:constricted SI: none HI: none VH/AH: denies but may be internally preoccupied Delusions: no overt delusional content noted or reported Insight/judgment: impaired x 2. Memory/cog: alert, oriented x 3. Diagnostics Vital Signs (24Hr): Vital Signs - 24 hr 09/14/24 08:00 Temperature 97.9 F Pulse Rate 85 Respiratory Rate 16 Blood Pressure 110/62 Pulse Oximetry 98 Oxygen Delivery Method Room Air BMI result Body Mass Index 20.4 Labs 08/27/24 10:00 08/29/24 17:32 Imaging Radiology Impressions: ITS Impressions Head CT 08/25/24 11:33 IMPRESSION: No acute intracranial abnormality. Electronically signed by: Cj Colunga MD 08/25/2024 12:12 PM [facility] [place] Medications Current Medications Acetaminophen (Acetaminophen 325 Mg Tablet) 650 mg PO Q6H PRN PRN Reason: Headache/Pain, Scale 1-10 Last Admin: 08/30/24 20:35 Dose: 650 mg Al Hydroxide/Mg Hydroxide (Magnesium Hydrox/Alum Hydrox 30 Ml Oral.Susp) 30 ml PO Q6H PRN PRN Reason: Heartburn/Nausea Aripiprazole (Aripiprazole 30 Mg Tablet) 30 mg PO DAILY [facility] Last Admin: 09/14/24 08:17 Dose: 30 mg Benzocaine (Throat Lozenge, Medicated Lozenge) 1 lozenge MUCOUS MEM Q1H PRN PRN Reason: Sore Throat Last Admin: 09/01/24 06:09 Dose: 1 lozenge Guaifenesin/Dextromethorphan (Guaifenesin Dm 200/20/10 Ml 10 Ml Syrup) 10 ml PO Q4H PRN PRN Reason: Cough Last Admin: 08/30/24 05:47 Dose: 10 ml Levothyroxine Sodium (Levothyroxine Sodium 75 Mcg Tablet) 75 mcg PO DAILY@0630 [facility] Last Admin: 09/14/24 06:12 Dose: 75 mcg Lidocaine/Diphenhydr/Alum/Mg/Simeth (Mag&Al/Sim/Diphenhyd/Lidocaine 10 Ml Oral.Susp) 10 ml PO Q6H PRN; Protocol PRN Reason: Painful Gums Last Admin: 08/26/24 13:38 Dose: 10 ml Lorazepam (Lorazepam 0.5 Mg Tablet) 0.5 mg PO BID [facility] Last Admin: 09/14/24 20:25 Dose: 0.5 mg Magnesium Hydroxide (Milk Of Magnesia 30 Ml Oral.Susp) 30 ml PO DAILY PRN PRN Reason: Constipation Memantine (Memantine Hcl 5 Mg Tablet) 5 mg PO DAILY [facility] Last Admin: 09/14/24 08:17 Dose: 5 mg Olanzapine (Olanzapine Odt 10 Mg Tab.Rapdis) 5 mg TRANSLINGU Q6H PRN PRN Reason: Agitation Pravastatin Sodium (Pravastatin Sodium 40 Mg Tablet) 40 mg PO BEDTIME [facility] Last Admin: 09/14/24 20:25 Dose: 40 mg Vitamin D (Cholecalciferol (Vitamin D3) 25 Mcg Tablet) 50 mcg PO DAILY [facility] Last Admin: 09/14/24 08:17 Dose: 50 mcg Allergies Allergies Allergy/AdvReac Type Severity Reaction Status Date / Time meperidine [From Demerol] AdvReac Intermediate Rash Verified 08/23/24 19:34 morphine AdvReac Intermediate Rash Verified 08/23/24 19:35 Sulfa (Sulfonamide AdvReac Intermediate Rash Verified 08/23/24 19:36 Antibiotics) Assessment & Plan Assessment & Plan (1) Schizoaffective disorder: Status: Acute Code(s): F25.9 - Schizoaffective disorder, unspecified Plan Ms. Thomas is a 69 year-old woman with hx of Bipolar Disorder, she currently presents with several symptoms suggestive of negative symptoms seem usually in schizoaffective disorder including constricted affect, abulia (some acknowledgment that she needed to initiate certain activities like going to dentist but still not doing so for unclear reasons). No overt paranoid delusions, her delayed response may be signs of thought blocking and underlying psychosis. She is in agreement to receive treatment and complete work up to also assess her memory and cognition. We discussed restarting abilify, which was started while she was in the ED- will titrate dose. 08/[address] shows atrophy. pending MOCA/ACL. continue abilify but may increase and add low dose ativan. 08/26 will increased abilify to 15mg po daily. will add low dose ativan- wonder if it helps with delayed response, and some staring. 08/27: T102, URI Sx. influenza A POS. UA NEG. tamiflu, droplet precautions. increase HS ativan to 1 mg. otherwise continue prior mgmt. 08/28: no requests or complaints, appears drained, resting in bed. continue current mgmt. 08/29- continue to present febrile, this AM 101.F, O2sat on RA 94%, limited oral intake yesterday, ordered labs to monitor dehydration. pt after encouragement, drinking cup of orange juice, some water, bananas and saltine crackers. pending labs. 08/30 continue tx. afebrile today for most of the day. O2sat on RA 96%. less cough, no signs of respiratory distress. taking medications. 08/31 family meeting- discussed filing for guardianship, she is currently taking medications. no longer symptomatic in terms of Influenza. afebrile, no respiratory distress. 09/01 continue tx. will complete guardianship papers 09/02 guardianship filed. continue tx. started on namenda target abulia. abilify increased to 20mg po daily. 09/03 continue tx. 09/04 continue tx. 09/05 continue tx. 09/06 continue tx. 09/07 continue tx. 09/08: stable. no questions or complaints. continue current mgmt. 09/09 will increase abilify to 30mg po daily. 09/10/2024 Question if increase Abilify is worsening blunting and bulimia 09/11/2024 Continue Abilify might consider Latuda Provigil unclear what patient's baseline is 09/12 continue tx. 09/13 continue tx. 09/14 continue tx. Reason for continued inpatient stay Substantial Risk for: inability to function Time Spent With Patient Time: Total time managing care of this patient today ____ minutes.
[2024-09-15 08:00] VITALS: BP 133/61; PULSE 78; RESP 16; TEMP 36.1; O2SAT 98
[2024-09-15] MEDS: ARIPiprazole 30 MG TABLET PO (08:18)
[2024-09-15 09:26] VITALS: BMI 20.3
--- NOTE | 2024-09-15 10:24 | P.PNPSI_ITS ---
Subjective Subjective Date of Service: 09/15/24 Reason For Visit: bipolar 1 disorder current or most recent epi Subjective Notes: Conditional Voluntary Interim History: Pt sleeping through the night. She was more visible today but mostly for meals. She is not interacting with peers nor going to groups. She denies VH/AH. She is somewhat suspicious but no overt delusional content reported. She is taking medications as prescribed. Review of Systems Review of Systems Pt denies chest pain. No abdominal pain. No diarrhea or constipation. Mental Status Exam Mental Status Exam Narrative: Appearance: constricted affect, in NAD, malnourished, very poor dental hygiene (unbothered by it). Behavior: somewhat guarded, Psychomotor: some retardation Speech: mostly clear, less latency, minimally spontaneous TP: poverty of thought TC: no questions or complaints Mood: good Affect:constricted SI: none HI: none VH/AH: denies but may be internally preoccupied Delusions: no overt delusional content noted or reported Insight/judgment: impaired x 2. Memory/cog: alert, oriented x 3. Diagnostics Vital Signs (24Hr): Vital Signs - 24 hr 09/14/24 20:00 09/15/24 08:00 Temperature 98.9 F 96.9 F Pulse Rate 77 78 Respiratory Rate 16 16 Blood Pressure 100/56 L 133/61 Pulse Oximetry 96 98 Oxygen Delivery Method Room Air BMI result Body Mass Index 20.3 Labs 08/27/24 10:00 08/29/24 17:32 Imaging Radiology Impressions: ITS Impressions Head CT 08/25/24 11:33 IMPRESSION: No acute intracranial abnormality. Electronically signed by: Cj Colunga MD 08/25/2024 12:12 PM [facility] - [place] Medications Medications Current Medications Acetaminophen (Acetaminophen 325 Mg Tablet) 650 mg PO Q6H PRN PRN Reason: Headache/Pain, Scale 1-10 Last Admin: 08/30/24 20:35 Dose: 650 mg Al Hydroxide/Mg Hydroxide (Magnesium Hydrox/Alum Hydrox 30 Ml Oral.Susp) 30 ml PO Q6H PRN PRN Reason: Heartburn/Nausea Aripiprazole (Aripiprazole 30 Mg Tablet) 30 mg PO DAILY [facility] Last Admin: 09/15/24 08:18 Dose: 30 mg Benzocaine (Throat Lozenge, Medicated Lozenge) 1 lozenge MUCOUS MEM Q1H PRN PRN Reason: Sore Throat Last Admin: 09/01/24 06:09 Dose: 1 lozenge Guaifenesin/Dextromethorphan (Guaifenesin Dm 200/20/10 Ml 10 Ml Syrup) 10 ml PO Q4H PRN PRN Reason: Cough Last Admin: 08/30/24 05:47 Dose: 10 ml Levothyroxine Sodium (Levothyroxine Sodium 75 Mcg Tablet) 75 mcg PO DAILY@0630 [facility] Last Admin: 09/15/24 06:14 Dose: 75 mcg Lidocaine/Diphenhydr/Alum/Mg/Simeth (Mag&Al/Sim/Diphenhyd/Lidocaine 10 Ml Oral.Susp) 10 ml PO Q6H PRN; Protocol PRN Reason: Painful Gums Last Admin: 08/26/24 13:38 Dose: 10 ml Lorazepam (Lorazepam 0.5 Mg Tablet) 0.5 mg PO BID [facility] Last Admin: 09/15/24 08:18 Dose: 0.5 mg Magnesium Hydroxide (Milk Of Magnesia 30 Ml Oral.Susp) 30 ml PO DAILY PRN PRN Reason: Constipation Memantine (Memantine Hcl 5 Mg Tablet) 5 mg PO DAILY [facility] Last Admin: 09/15/24 08:18 Dose: 5 mg Olanzapine (Olanzapine Odt 10 Mg Tab.Rapdis) 5 mg TRANSLINGU Q6H PRN PRN Reason: Agitation Pravastatin Sodium (Pravastatin Sodium 40 Mg Tablet) 40 mg PO BEDTIME [facility] Last Admin: 09/14/24 20:25 Dose: 40 mg Vitamin D (Cholecalciferol (Vitamin D3) 25 Mcg Tablet) 50 mcg PO DAILY [facility] Last Admin: 09/15/24 08:18 Dose: 50 mcg Allergies Allergies Allergy/AdvReac Type Severity Reaction Status Date / Time meperidine [From Demerol] AdvReac Intermediate Rash Verified 08/23/24 19:34 morphine AdvReac Intermediate Rash Verified 08/23/24 19:35 Sulfa (Sulfonamide AdvReac Intermediate Rash Verified 08/23/24 19:36 Antibiotics) Assessment & Plan Assessment & Plan (1) Schizoaffective disorder: Status: Acute Code(s): F25.9 - Schizoaffective disorder, unspecified Plan Ms. Thomas is a 69 year-old woman with hx of Bipolar Disorder, she currently presents with several symptoms suggestive of negative symptoms seem usually in schizoaffective disorder including constricted affect, abulia (some acknowledgment that she needed to initiate certain activities like going to dentist but still not doing so for unclear reasons). No overt paranoid delusions, her delayed response may be signs of thought blocking and underlying psychosis. She is in agreement to receive treatment and complete work up to also assess her memory and cognition. We discussed restarting abilify, which was started while she was in the ED- will titrate dose. 08/[address] shows atrophy. pending MOCA/ACL. continue abilify but may increase and add low dose ativan. 08/26 will increased abilify to 15mg po daily. will add low dose ativan- wonder if it helps with delayed response, and some staring. 08/27: T102, URI Sx. influenza A POS. UA NEG. tamiflu, droplet precautions. increase HS ativan to 1 mg. otherwise continue prior mgmt. 08/28: no requests or complaints, appears drained, resting in bed. continue current mgmt. 08/29- continue to present febrile, this AM 101.F, O2sat on RA 94%, limited oral intake yesterday, ordered labs to monitor dehydration. pt after encouragement, drinking cup of orange juice, some water, bananas and saltine crackers. pending labs. 08/30 continue tx. afebrile today for most of the day. O2sat on RA 96%. less cough, no signs of respiratory distress. taking medications. 08/31 family meeting- discussed filing for guardianship, she is currently taking medications. no longer symptomatic in terms of Influenza. afebrile, no respiratory distress. 09/01 continue tx. will complete guardianship papers 09/02 guardianship filed. continue tx. started on namenda target abulia. abilify increased to 20mg po daily. 09/03 continue tx. 09/04 continue tx. 09/05 continue tx. 09/06 continue tx. 09/07 continue tx. 09/08: stable. no questions or complaints. continue current mgmt. 09/09 will increase abilify to 30mg po daily. 09/10/2024 Question if increase Abilify is worsening blunting and bulimia 09/11/2024 Continue Abilify might consider Latuda Provigil unclear what patient's baseline is 09/12 continue tx. 09/13 continue tx. 09/14 continue tx. 09/15 continue tx. Reason for continued inpatient stay Substantial Risk for: inability to function Time Spent With Patient Time: Total time managing care of this patient today ____ minutes.
[2024-09-15 20:00] VITALS: BP 107/69; PULSE 88; RESP 16; TEMP 36.3; O2SAT 96
[2024-09-16 08:00] VITALS: BP 113/57; PULSE 86; RESP 18; TEMP 36.3; O2SAT 96
[2024-09-16] MEDS: ARIPiprazole 30 MG TABLET PO (08:51)
--- NOTE | 2024-09-16 16:27 | HO.PSYCHPN ---
Subjective Subjective Date of Service: 09/16/24 Reason For Visit: bipolar 1 disorder current or most recent epi Subjective Notes: Conditional Voluntary Healthcare Proxy: Yes Interim History: Pt sleeping through the night. She was more visible today but mostly for meals. She is not interacting with peers nor going to groups. She denies VH/AH. She is somewhat suspicious but no overt delusional content reported. She is taking medications as prescribed. Review of Systems Review of Systems Pt denies chest pain. No abdominal pain. No diarrhea or constipation. Mental Status Exam Mental Status Exam Narrative: Appearance: constricted affect, in NAD, malnourished, very poor dental hygiene (unbothered by it). Behavior: somewhat guarded, Psychomotor: some retardation Speech: mostly clear, less latency, minimally spontaneous TP: poverty of thought TC: no questions or complaints Mood: good Affect:constricted SI: none HI: none VH/AH: denies but may be internally preoccupied Delusions: no overt delusional content noted or reported Insight/judgment: impaired x 2. Memory/cog: alert, oriented x 3. Diagnostics Vital Signs (24Hr): Vital Signs - 24 hr 09/15/24 20:00 09/16/24 08:00 Temperature 97.4 F 97.3 F Pulse Rate 88 86 Respiratory Rate 16 18 Blood Pressure 107/69 113/57 L Pulse Oximetry 96 96 Oxygen Delivery Method Room Air Room Air BMI result Body Mass Index 20.3 Labs 08/27/24 10:00 08/29/24 17:32 Imaging Radiology Impressions: ITS Impressions Head CT 08/25/24 11:33 IMPRESSION: No acute intracranial abnormality. Electronically signed by: Cj Colunga MD 08/25/2024 12:12 PM [facility] [place] Medications Medications Current Medications Acetaminophen (Acetaminophen 325 Mg Tablet) 650 mg PO Q6H PRN PRN Reason: Headache/Pain, Scale 1-10 Last Admin: 08/30/24 20:35 Dose: 650 mg Al Hydroxide/Mg Hydroxide (Magnesium Hydrox/Alum Hydrox 30 Ml Oral.Susp) 30 ml PO Q6H PRN PRN Reason: Heartburn/Nausea Aripiprazole (Aripiprazole 30 Mg Tablet) 30 mg PO DAILY [facility] Last Admin: 09/16/24 08:51 Dose: 30 mg Benzocaine (Throat Lozenge, Medicated Lozenge) 1 lozenge MUCOUS MEM Q1H PRN PRN Reason: Sore Throat Last Admin: 09/01/24 06:09 Dose: 1 lozenge Guaifenesin/Dextromethorphan (Guaifenesin Dm 200/20/10 Ml 10 Ml Syrup) 10 ml PO Q4H PRN PRN Reason: Cough Last Admin: 08/30/24 05:47 Dose: 10 ml Levothyroxine Sodium (Levothyroxine Sodium 75 Mcg Tablet) 75 mcg PO DAILY@0630 [facility] Last Admin: 09/16/24 06:06 Dose: 75 mcg Lidocaine/Diphenhydr/Alum/Mg/Simeth (Mag&Al/Sim/Diphenhyd/Lidocaine 10 Ml Oral.Susp) 10 ml PO Q6H PRN; Protocol PRN Reason: Painful Gums Last Admin: 08/26/24 13:38 Dose: 10 ml Lorazepam (Lorazepam 0.5 Mg Tablet) 0.5 mg PO BID [facility] Last Admin: 09/16/24 08:51 Dose: 0.5 mg Magnesium Hydroxide (Milk Of Magnesia 30 Ml Oral.Susp) 30 ml PO DAILY PRN PRN Reason: Constipation Memantine (Memantine Hcl 5 Mg Tablet) 5 mg PO DAILY [facility] Last Admin: 09/16/24 08:51 Dose: 5 mg Olanzapine (Olanzapine Odt 10 Mg Tab.Rapdis) 5 mg TRANSLINGU Q6H PRN PRN Reason: Agitation Pravastatin Sodium (Pravastatin Sodium 40 Mg Tablet) 40 mg PO BEDTIME [facility] Last Admin: 09/15/24 20:14 Dose: 40 mg Vitamin D (Cholecalciferol (Vitamin D3) 25 Mcg Tablet) 50 mcg PO DAILY [facility] Last Admin: 09/16/24 08:51 Dose: 50 mcg Allergies Allergies Allergy/AdvReac Type Severity Reaction Status Date / Time meperidine [From Demerol] AdvReac Intermediate Rash Verified 08/23/24 19:34 morphine AdvReac Intermediate Rash Verified 08/23/24 19:35 Sulfa (Sulfonamide AdvReac Intermediate Rash Verified 08/23/24 19:36 Antibiotics) Assessment & Plan Assessment & Plan (1) Schizoaffective disorder: Status: Acute Code(s): F25.9 - Schizoaffective disorder, unspecified Plan Ms. Thomas is a 69 year-old woman with hx of Bipolar Disorder, she currently presents with several symptoms suggestive of negative symptoms seem usually in schizoaffective disorder including constricted affect, abulia (some acknowledgment that she needed to initiate certain activities like going to dentist but still not doing so for unclear reasons). No overt paranoid delusions, her delayed response may be signs of thought blocking and underlying psychosis. She is in agreement to receive treatment and complete work up to also assess her memory and cognition. We discussed restarting abilify, which was started while she was in the ED- will titrate dose. 08/[address] shows atrophy. pending MOCA/ACL. continue abilify but may increase and add low dose ativan. 08/26 will increased abilify to 15mg po daily. will add low dose ativan- wonder if it helps with delayed response, and some staring. 08/27: T102, URI Sx. influenza A POS. UA NEG. tamiflu, droplet precautions. increase HS ativan to 1 mg. otherwise continue prior mgmt. 08/28: no requests or complaints, appears drained, resting in bed. continue current mgmt. 08/29- continue to present febrile, this AM 101.F, O2sat on RA 94%, limited oral intake yesterday, ordered labs to monitor dehydration. pt after encouragement, drinking cup of orange juice, some water, bananas and saltine crackers. pending labs. 08/30 continue tx. afebrile today for most of the day. O2sat on RA 96%. less cough, no signs of respiratory distress. taking medications. 08/31 family meeting- discussed filing for guardianship, she is currently taking medications. no longer symptomatic in terms of Influenza. afebrile, no respiratory distress. 09/01 continue tx. will complete guardianship papers 09/02 guardianship filed. continue tx. started on namenda target abulia. abilify increased to 20mg po daily. 09/03 continue tx. 09/04 continue tx. 09/05 continue tx. 09/06 continue tx. 09/07 continue tx. 09/08: stable. no questions or complaints. continue current mgmt. 09/09 will increase abilify to 30mg po daily. 09/10/2024 Question if increase Abilify is worsening blunting and bulimia 09/11/2024 Continue Abilify might consider Latuda Provigil unclear what patient's baseline is 09/12 continue tx. 09/13 continue tx. 09/14 continue tx. 09/15 continue tx. 09/16 continue tx. VS stable. Reason for continued inpatient stay Substantial Risk for: inability to function Time Spent With Patient Time: Total time managing care of this patient today ____ minutes.
[2024-09-16 20:00] VITALS: BP 110/56; PULSE 79; RESP 18; TEMP 36.2; O2SAT 96
[2024-09-17 08:00] VITALS: BP 121/61; PULSE 93; RESP 18; TEMP 36.8; O2SAT 98
[2024-09-17] MEDS: ARIPiprazole 30 MG TABLET PO (08:42)
[2024-09-17 11:31] VITALS: BMI 20.5
--- NOTE | 2024-09-17 15:26 | P.PNPSI_ITS ---
Subjective Subjective Date of Service: 09/17/24 Reason For Visit: bipolar 1 disorder current or most recent epi Interim History: Met with patient; discussed with team; reviewed chart Patient presents as suspicious and guarded with technical writer. Patient kind of walking out of her room but at the side of technical writer, backs up into her room, then walks out a little then backs up a little... She is vague with technical writer but denies any psychiatric symptoms. Mental Status Exam Mental Status Exam Narrative: Appearance: constricted affect, in NAD, malnourished, very poor dental hygiene (unbothered by it). Behavior: guarded, cautious Psychomotor: some retardation Speech: mostly clear, less latency, minimally spontaneous TP: [place] TC: no questions or complaints Mood: good Affect:constricted, anxious SI: Denied HI: Denies VH/AH: denies but may be internally preoccupied Delusions: no overt delusional content noted or reported Insight/judgment: impaired . Diagnostics Vital Signs (24Hr): Vital Signs - 24 hr 09/16/24 20:00 09/17/24 08:00 Temperature 97.2 F 98.2 F Pulse Rate 79 93 Respiratory Rate 18 18 Blood Pressure 110/56 L 121/61 Pulse Oximetry 96 98 Oxygen Delivery Method Room Air Room Air BMI result Body Mass Index 20.5 Labs 08/27/24 10:00 08/29/24 17:32 Imaging Radiology Impressions: ITS Impressions Head CT 08/25/24 11:33 IMPRESSION: No acute intracranial abnormality. Electronically signed by: Cj Colunga MD 08/25/2024 12:12 PM [facility] [place] Medications Medications Current Medications Acetaminophen (Acetaminophen 325 Mg Tablet) 650 mg PO Q6H PRN PRN Reason: Headache/Pain, Scale 1-10 Last Admin: 08/30/24 20:35 Dose: 650 mg Al Hydroxide/Mg Hydroxide (Magnesium Hydrox/Alum Hydrox 30 Ml Oral.Susp) 30 ml PO Q6H PRN PRN Reason: Heartburn/Nausea Aripiprazole (Aripiprazole 30 Mg Tablet) 30 mg PO DAILY [facility] Last Admin: 09/17/24 08:42 Dose: 30 mg Benzocaine (Throat Lozenge, Medicated Lozenge) 1 lozenge MUCOUS MEM Q1H PRN PRN Reason: Sore Throat Last Admin: 09/01/24 06:09 Dose: 1 lozenge Guaifenesin/Dextromethorphan (Guaifenesin Dm 200/20/10 Ml 10 Ml Syrup) 10 ml PO Q4H PRN PRN Reason: Cough Last Admin: 08/30/24 05:47 Dose: 10 ml Levothyroxine Sodium (Levothyroxine Sodium 75 Mcg Tablet) 75 mcg PO DAILY@0630 [facility] Last Admin: 09/17/24 05:42 Dose: 75 mcg Lidocaine/Diphenhydr/Alum/Mg/Simeth (Mag&Al/Sim/Diphenhyd/Lidocaine 10 Ml Oral.Susp) 10 ml PO Q6H PRN; Protocol PRN Reason: Painful Gums Last Admin: 08/26/24 13:38 Dose: 10 ml Lorazepam (Lorazepam 0.5 Mg Tablet) 0.5 mg PO BID [facility] Last Admin: 09/17/24 08:42 Dose: 0.5 mg Magnesium Hydroxide (Milk Of Magnesia 30 Ml Oral.Susp) 30 ml PO DAILY PRN PRN Reason: Constipation Memantine (Memantine Hcl 5 Mg Tablet) 5 mg PO DAILY [facility] Last Admin: 09/17/24 08:42 Dose: 5 mg Olanzapine (Olanzapine Odt 10 Mg Tab.Rapdis) 5 mg TRANSLINGU Q6H PRN PRN Reason: Agitation Pravastatin Sodium (Pravastatin Sodium 40 Mg Tablet) 40 mg PO BEDTIME [facility] Last Admin: 09/16/24 20:25 Dose: 40 mg Vitamin D (Cholecalciferol (Vitamin D3) 25 Mcg Tablet) 50 mcg PO DAILY [facility] Last Admin: 09/17/24 08:42 Dose: 50 mcg Allergies Allergies Allergy/AdvReac Type Severity Reaction Status Date / Time meperidine [From Demerol] AdvReac Intermediate Rash Verified 08/23/24 19:34 morphine AdvReac Intermediate Rash Verified 08/23/24 19:35 Sulfa (Sulfonamide AdvReac Intermediate Rash Verified 08/23/24 19:36 Antibiotics) Assessment & Plan Assessment & Plan (1) Schizoaffective disorder: Status: Acute Code(s): F25.9 - Schizoaffective disorder, unspecified Plan Ms. Thomas is a 69 year-old woman with hx of Bipolar Disorder, she currently presents with several symptoms suggestive of negative symptoms seem usually in schizoaffective disorder including constricted affect, abulia (some acknowledgment that she needed to initiate certain activities like going to dentist but still not doing so for unclear reasons). No overt paranoid delusions, her delayed response may be signs of thought blocking and underlying psychosis. She is in agreement to receive treatment and complete work up to also assess her memory and cognition. We discussed restarting abilify, which was started while she was in the ED- will titrate dose. 08/[address] shows atrophy. pending MOCA/ACL. continue abilify but may increase and add low dose ativan. 08/26 will increased abilify to 15mg po daily. will add low dose ativan- wonder if it helps with delayed response, and some staring. 08/27: T102, URI Sx. influenza A POS. UA NEG. tamiflu, droplet precautions. increase HS ativan to 1 mg. otherwise continue prior mgmt. 08/28: no requests or complaints, appears drained, resting in bed. continue current mgmt. 08/29- continue to present febrile, this AM 101.F, O2sat on RA 94%, limited oral intake yesterday, ordered labs to monitor dehydration. pt after encouragement, drinking cup of orange juice, some water, bananas and saltine crackers. pending labs. 08/30 continue tx. afebrile today for most of the day. O2sat on RA 96%. less cough, no signs of respiratory distress. taking medications. 08/31 family meeting- discussed filing for guardianship, she is currently taking medications. no longer symptomatic in terms of Influenza. afebrile, no respiratory distress. 09/01 continue tx. will complete guardianship papers 09/02 guardianship filed. continue tx. started on namenda target abulia. abilify increased to 20mg po daily. 09/03 continue tx. 09/04 continue tx. 09/05 continue tx. 09/06 continue tx. 09/07 continue tx. 09/08: stable. no questions or complaints. continue current mgmt. 09/09 will increase abilify to 30mg po daily. 09/10/2024 Question if increase Abilify is worsening blunting and bulimia 09/11/2024 Continue Abilify might consider Latuda Provigil unclear what patient's baseline is 09/12 continue tx. 09/13 continue tx. 09/14 continue tx. 09/15 continue tx. 09/16 continue tx. VS stable. 09/17 Patient presents as suspicious and guarded with technical writer. Patient kind of walking out of her room but at the side of technical writer, backs up into her room, then walks out a little then backs up a little... She is vague with technical writer but denies any psychiatric symptoms. -taking meds Patient educated on: diagnosis and medication risk/benefits Informed Consent: does not understand Reason for continued inpatient stay Substantial Risk for: rapid decompensation Time Spent With Patient Time: Total time managing care of this patient today ____ minutes.
[2024-09-17 20:00] VITALS: BP 109/55; PULSE 92; RESP 18; TEMP 36.7; O2SAT 95
[2024-09-18 08:25] VITALS: BP 104/78; PULSE 84; RESP 18; TEMP 36.8; O2SAT 98
[2024-09-18] MEDS: ARIPiprazole 30 MG TABLET PO (08:50)
--- NOTE | 2024-09-18 14:10 | PC.NURSE ---
Patient incontinent of a very large amount of strong smelling urine today with care. She complained of pain and burning on urination and thinks she may have a UTI. Dr. Sigala updated and new orders obtained to obtain urine for a U/A and C+S. Patient voided 30cc clear yellow urine and sample obtained at 1405and sent to lab. Patient tolerated the procedure well.
[2024-09-18 14:21] LABS: Appearance Urine Clear; Glucose Urine UA Negative (Negative); PH 6.5 (5.0-9.0); Specific Gravity - Urine 1.025 (1.005-1.025); UMIC TRIGGER UACC YES
[2024-09-18 14:26] LABS: UACC Culture Trigger YES
--- NOTE | 2024-09-18 17:28 | P.PNPSI_ITS ---
Subjective Subjective Date of Service: 09/18/24 Reason For Visit: bipolar 1 disorder current or most recent epi Interim History: Met with patient; discussed with team Lying in bed awake; Patient complained of burning on urination; staff reports incontinent of urine. UA indicative of UTI and patient started on Ceftin to which patient agreed Otherwise difficult with which to engage, denying psychiatric symptoms. Mental Status Exam Mental Status Exam Patient Appearance: Appropriate Patient Orientation: Person and Situation Level of Consciousness: Awake and Appropriate Patient Behavior: Guarded and Passive Mood Description: Withdrawn Affect Description: Constricted Patient Cognition Impaired: Yes Ability to Follow Directions: Good Speech Pattern: Clear Hallucinations: None Delusions: Not Present Thought Process: Distracted and Slowed Thinking Thought Content: positive for [place] and positive for Poverty of Content Judgement: Poor Diagnostics Vital Signs (24Hr): Vital Signs - 24 hr 09/17/24 20:00 09/18/24 08:25 Temperature 98.0 F 98.3 F Pulse Rate 92 84 Respiratory Rate 18 18 Blood Pressure 109/55 L 104/78 Pulse Oximetry 95 98 Oxygen Delivery Method Room Air Room Air BMI result Body Mass Index 20.5 Labs 08/27/24 10:00 08/29/24 17:32 Labs: Laboratory Results - last 48 hr 09/18/24 14:05 Urine Color Yellow Urine Appearance Clear Urine pH 6.5 Ur Specific [place] 1.025 Urine Protein Negative Urine Glucose (UA) Negative Urine Ketones Trace Urine Blood Negative Urine Nitrite Negative Ur Leukocyte Esterase Moderate (2+) H Urine RBC 0-2 Urine WBC >50 H Ur Squamous Epith Cells 0-2 Urine Bacteria None Seen Hyaline Casts 0-2 Imaging Radiology Impressions: ITS Impressions Head CT 08/25/24 11:33 IMPRESSION: No acute intracranial abnormality. Electronically signed by: Cj Colunga MD 08/25/2024 12:12 PM [facility] [place] Medications Medications Current Medications Acetaminophen (Acetaminophen 325 Mg Tablet) 650 mg PO Q6H PRN PRN Reason: Headache/Pain, Scale 1-10 Last Admin: 08/30/24 20:35 Dose: 650 mg Al Hydroxide/Mg Hydroxide (Magnesium Hydrox/Alum Hydrox 30 Ml Oral.Susp) 30 ml PO Q6H PRN PRN Reason: Heartburn/Nausea Aripiprazole (Aripiprazole 30 Mg Tablet) 30 mg PO DAILY [facility] Last Admin: 09/18/24 08:50 Dose: 30 mg Benzocaine (Throat Lozenge, Medicated Lozenge) 1 lozenge MUCOUS MEM Q1H PRN PRN Reason: Sore Throat Last Admin: 09/01/24 06:09 Dose: 1 lozenge Guaifenesin/Dextromethorphan (Guaifenesin Dm 200/20/10 Ml 10 Ml Syrup) 10 ml PO Q4H PRN PRN Reason: Cough Last Admin: 08/30/24 05:47 Dose: 10 ml Levothyroxine Sodium (Levothyroxine Sodium 75 Mcg Tablet) 75 mcg PO DAILY@0630 [facility] Last Admin: 09/18/24 05:50 Dose: 75 mcg Lidocaine/Diphenhydr/Alum/Mg/Simeth (Mag&Al/Sim/Diphenhyd/Lidocaine 10 Ml Oral.Susp) 10 ml PO Q6H PRN; Protocol PRN Reason: Painful Gums Last Admin: 08/26/24 13:38 Dose: 10 ml Lorazepam (Lorazepam 0.5 Mg Tablet) 0.5 mg PO BID [facility] Last Admin: 09/18/24 08:50 Dose: 0.5 mg Magnesium Hydroxide (Milk Of Magnesia 30 Ml Oral.Susp) 30 ml PO DAILY PRN PRN Reason: Constipation Memantine (Memantine Hcl 5 Mg Tablet) 5 mg PO DAILY [facility] Last Admin: 09/18/24 08:50 Dose: 5 mg Olanzapine (Olanzapine Odt 10 Mg Tab.Rapdis) 5 mg TRANSLINGU Q6H PRN PRN Reason: Agitation Pravastatin Sodium (Pravastatin Sodium 40 Mg Tablet) 40 mg PO BEDTIME [facility] Last Admin: 09/17/24 20:24 Dose: 40 mg Vitamin D (Cholecalciferol (Vitamin D3) 25 Mcg Tablet) 50 mcg PO DAILY [facility] Last Admin: 09/18/24 08:50 Dose: 50 mcg Allergies Allergies Allergy/AdvReac Type Severity Reaction Status Date / Time meperidine [From Demerol] AdvReac Intermediate Rash Verified 08/23/24 19:34 morphine AdvReac Intermediate Rash Verified 08/23/24 19:35 Sulfa (Sulfonamide AdvReac Intermediate Rash Verified 08/23/24 19:36 Antibiotics) Assessment & Plan Assessment & Plan (1) Schizoaffective disorder: Status: Acute Code(s): F25.9 - Schizoaffective disorder, unspecified Plan Ms. Thomas is a 69 year-old woman with hx of Bipolar Disorder, she currently presents with several symptoms suggestive of negative symptoms seem usually in schizoaffective disorder including constricted affect, abulia (some acknowledgment that she needed to initiate certain activities like going to dentist but still not doing so for unclear reasons). No overt paranoid delusions, her delayed response may be signs of thought blocking and underlying psychosis. She is in agreement to receive treatment and complete work up to also assess her memory and cognition. We discussed restarting abilify, which was started while she was in the ED- will titrate dose. 08/[address] shows atrophy. pending MOCA/ACL. continue abilify but may increase and add low dose ativan. 08/26 will increased abilify to 15mg po daily. will add low dose ativan- wonder if it helps with delayed response, and some staring. 08/27: T102, URI Sx. influenza A POS. UA NEG. tamiflu, droplet precautions. increase HS ativan to 1 mg. otherwise continue prior mgmt. 08/28: no requests or complaints, appears drained, resting in bed. continue current mgmt. 08/29- continue to present febrile, this AM 101.F, O2sat on RA 94%, limited oral intake yesterday, ordered labs to monitor dehydration. pt after encouragement, drinking cup of orange juice, some water, bananas and saltine crackers. pending labs. 08/30 continue tx. afebrile today for most of the day. O2sat on RA 96%. less cough, no signs of respiratory distress. taking medications. 08/31 family meeting- discussed filing for guardianship, she is currently taking medications. no longer symptomatic in terms of Influenza. afebrile, no respiratory distress. 09/01 continue tx. will complete guardianship papers 09/02 guardianship filed. continue tx. started on namenda target abulia. abilify increased to 20mg po daily. 09/03 continue tx. 09/04 continue tx. 09/05 continue tx. 09/06 continue tx. 09/07 continue tx. 09/08: stable. no questions or complaints. continue current mgmt. 09/09 will increase abilify to 30mg po daily. 09/10/2024 Question if increase Abilify is worsening blunting and bulimia 09/11/2024 Continue Abilify might consider Latuda Provigil unclear what patient's baseline is 09/12 continue tx. 09/13 continue tx. 09/14 continue tx. 09/15 continue tx. 09/16 continue tx. VS stable. 09/17 Patient presents as suspicious and guarded with telegraphic typewriter repairer. Patient kind of walking out of her room but at the side of telegraphic typewriter repairer, backs up into her room, then walks out a little then backs up a little... She is vague with telegraphic typewriter repairer but denies any psychiatric symptoms. -taking meds 09/18 paranoid, guarded; says yes to dysuria. Started on Ceftin for UTI Patient educated on: diagnosis, medication risk/benefits and medical condition Informed Consent: understands, does not understand and further education needed Reason for continued inpatient stay Substantial Risk for: inability to function Time Spent With Patient Time: Total time managing care of this patient today ____ minutes.
--- NOTE | 2024-09-18 18:33 | PC.NURSE ---
Ceftin 250 PO x1 today, then BID ordered and given for UTI per Dr. Sigala. PO fluids encouraged and taken well. Skin turgor is good and mucous membranes are moist.
[2024-09-18 20:00] VITALS: BP 100/52; PULSE 89; RESP 16; TEMP 36.9; O2SAT 97
[2024-09-19 08:00] VITALS: BP 109/71; PULSE 90; RESP 18; O2SAT 98
[2024-09-19] MEDS: ARIPiprazole 30 MG TABLET PO (08:27)
--- NOTE | 2024-09-19 15:02 | P.PNPSI_ITS ---
Subjective Subjective Date of Service: 09/19/24 Reason For Visit: bipolar 1 disorder current or most recent epi Interim History: The nursing staff reported the patient had been flat withdrawn she complained of dysuria. A new UA was ordered. She has been common cooperative slept 6 hours. On interview the patient denies new symptoms, looks internally preoccupied and confused. Mental Status Exam Mental Status Exam Patient Appearance: Appropriate Patient Orientation: Person and Situation Level of Consciousness: Awake and Appropriate Patient Behavior: Guarded and Passive Mood Description: Withdrawn Affect Description: Constricted Patient Cognition Impaired: Yes Ability to Follow Directions: Good Speech Pattern: Clear Hallucinations: None Delusions: Paranoid Ideation and Ideas of Reference Thought Process: Distracted and Slowed Thinking Thought Content: positive for [place] and positive for Poverty of Content Judgement: Fair Diagnostics Vital Signs (24Hr): Vital Signs - 24 hr 09/18/24 20:00 09/19/24 08:00 Temperature 98.4 F Pulse Rate 89 90 Respiratory Rate 16 18 Blood Pressure 100/52 L 109/71 Pulse Oximetry 97 98 Oxygen Delivery Method Room Air Room Air BMI result Body Mass Index 20.5 Labs 08/27/24 10:00 08/29/24 17:32 Labs: Laboratory Results - last 48 hr 09/18/24 14:05 Urine Color Yellow Urine Appearance Clear Urine pH 6.5 Ur Specific [place] 1.025 Urine Protein Negative Urine Glucose (UA) Negative Urine Ketones Trace Urine Blood Negative Urine Nitrite Negative Ur Leukocyte Esterase Moderate (2+) H Urine RBC 0-2 Urine WBC >50 H Ur Squamous Epith Cells 0-2 Urine Bacteria None Seen Hyaline Casts 0-2 Imaging Radiology Impressions: ITS Impressions Head CT 08/25/24 11:33 IMPRESSION: No acute intracranial abnormality. Electronically signed by: Cj Colunga MD 08/25/2024 12:12 PM [facility] Medications Medications Current Medications Acetaminophen (Acetaminophen 325 Mg Tablet) 650 mg PO Q6H PRN PRN Reason: Headache/Pain, Scale 1-10 Last Admin: 08/30/24 20:35 Dose: 650 mg Al Hydroxide/Mg Hydroxide (Magnesium Hydrox/Alum Hydrox 30 Ml Oral.Susp) 30 ml PO Q6H PRN PRN Reason: Heartburn/Nausea Aripiprazole (Aripiprazole 30 Mg Tablet) 30 mg PO DAILY [facility] Last Admin: 09/19/24 08:27 Dose: 30 mg Benzocaine (Throat Lozenge, Medicated Lozenge) 1 lozenge MUCOUS MEM Q1H PRN PRN Reason: Sore Throat Last Admin: 09/01/24 06:09 Dose: 1 lozenge Cefuroxime Axetil (Cefuroxime Axetil 250 Mg Tablet) 250 mg PO BID COUNT INCLUDES [facility] Last Admin: 09/19/24 08:27 Dose: 250 mg Guaifenesin/Dextromethorphan (Guaifenesin Dm 200/20/10 Ml 10 Ml Syrup) 10 ml PO Q4H PRN PRN Reason: Cough Last Admin: 08/30/24 05:47 Dose: 10 ml Levothyroxine Sodium (Levothyroxine Sodium 75 Mcg Tablet) 75 mcg PO DAILY@0630 COUNT INCLUDES THE [facility] Last Admin: 09/19/24 06:10 Dose: 75 mcg Lidocaine/Diphenhydr/Alum/Mg/Simeth (Mag&Al/Sim/Diphenhyd/Lidocaine 10 Ml Oral.Susp) 10 ml PO Q6H PRN; Protocol PRN Reason: Painful Gums Last Admin: 08/26/24 13:38 Dose: 10 ml Lorazepam (Lorazepam 0.5 Mg Tablet) 0.5 mg PO BID COUNT INCLUDES THE [facility] Last Admin: 09/19/24 08:27 Dose: 0.5 mg Magnesium Hydroxide (Milk Of Magnesia 30 Ml Oral.Susp) 30 ml PO DAILY PRN PRN Reason: Constipation Memantine (Memantine Hcl 5 Mg Tablet) 5 mg PO DAILY COUNT INCLUDES THE [facility] Last Admin: 09/19/24 08:27 Dose: 5 mg Olanzapine (Olanzapine Odt 10 Mg Tab.Rapdis) 5 mg TRANSLINGU Q6H PRN PRN Reason: Agitation Pravastatin Sodium (Pravastatin Sodium 40 Mg Tablet) 40 mg PO BEDTIME COUNT INCLUDES THE [facility] Last Admin: 09/18/24 20:39 Dose: 40 mg Vitamin D (Cholecalciferol (Vitamin D3) 25 Mcg Tablet) 50 mcg PO DAILY COUNT INCLUDES [facility] Last Admin: 09/19/24 08:27 Dose: 50 mcg Allergies Allergies Allergy/AdvReac Type Severity Reaction Status Date / Time meperidine [From Demerol] AdvReac Intermediate Rash Verified 08/23/24 19:34 morphine AdvReac Intermediate Rash Verified 08/23/24 19:35 Sulfa (Sulfonamide AdvReac Intermediate Rash Verified 08/23/24 19:36 Antibiotics) Assessment & Plan Assessment & Plan (1) Schizoaffective disorder: Status: Acute Code(s): F25.9 - Schizoaffective disorder, unspecified Plan Ms. Thomas is a 69 year-old woman with hx of Bipolar Disorder, she currently presents with several symptoms suggestive of negative symptoms seem usually in schizoaffective disorder including constricted affect, abulia (some acknowledgment that she needed to initiate certain activities like going to dentist but still not doing so for unclear reasons). No overt paranoid delusions, her delayed response may be signs of thought blocking and underlying psychosis. She is in agreement to receive treatment and complete work up to also assess her memory and cognition. We discussed restarting abilify, which was started while she was in the ED- will titrate dose. 08/[address] shows atrophy. pending MOCA/ACL. continue abilify but may increase and add low dose ativan. 08/26 will increased abilify to 15mg po daily. will add low dose ativan- wonder if it helps with delayed response, and some staring. 08/27: T102, URI Sx. influenza A POS. UA NEG. tamiflu, droplet precautions. increase HS ativan to 1 mg. otherwise continue prior mgmt. 08/28: no requests or complaints, appears drained, resting in bed. continue current mgmt. 08/29- continue to present febrile, this AM 101.F, O2sat on RA 94%, limited oral intake yesterday, ordered labs to monitor dehydration. pt after encouragement, drinking cup of orange juice, some water, bananas and saltine crackers. pending labs. 08/30 continue tx. afebrile today for most of the day. O2sat on RA 96%. less cough, no signs of respiratory distress. taking medications. 08/31 family meeting- discussed filing for guardianship, she is currently taking medications. no longer symptomatic in terms of Influenza. afebrile, no respiratory distress. 09/01 continue tx. will complete guardianship papers 09/02 guardianship filed. continue tx. started on namenda target abulia. abilify increased to 20mg po daily. 09/03 continue tx. 09/04 continue tx. 09/05 continue tx. 09/06 continue tx. 09/07 continue tx. 3/13: stable. no questions or complaints. continue current mgmt. 09/09 will increase abilify to 30mg po daily. 09/10/2024 Question if increase Abilify is worsening blunting and bulimia 09/11/2024 Continue Abilify might consider Latuda Provigil unclear what patient's baseline is 09/12 continue tx. 09/13 continue tx. 09/14 continue tx. 09/15 continue tx. 09/16 continue tx. VS stable. 09/17 Patient presents as suspicious and guarded with physician underwriter. Patient kind of walking out of her room but at the side of physician underwriter, backs up into her room, then walks out a little then backs up a little... She is vague with physician underwriter but denies any psychiatric symptoms. -taking meds 09/18 paranoid, guarded; says yes to dysuria. Started on Ceftin for UTI. 09/19 keep same treatment Reason for continued inpatient stay Substantial Risk for: inability to function, rapid decompensation and med/psych decompensation Time Spent With Patient Time: Total time managing care of this patient today __20__ minutes.
[2024-09-19 20:00] VITALS: BP 109/54; PULSE 73; RESP 18; TEMP 36.4; O2SAT 96
[2024-09-20 08:00] VITALS: BP 114/73; PULSE 105; RESP 16; TEMP 36.8; O2SAT 98
[2024-09-20] MEDS: ARIPiprazole 30 MG TABLET PO (08:31)
--- NOTE | 2024-09-20 15:35 | P.PNPSI_ITS ---
Subjective Subjective Date of Service: 09/20/24 Reason For Visit: bipolar 1 disorder current or most recent epi Interim History: The nursing staff reported had been flat, coming out of her room only for meals. The slag production worker reported that they were working on conservatorship with the family. She slept 6 hours. On interview the patient denies new symptoms looks pleasantly confused. Mental Status Exam Mental Status Exam Patient Appearance: Appropriate Patient Orientation: Person and Situation Level of Consciousness: Awake and Appropriate Patient Behavior: Guarded and Passive Mood Description: Withdrawn Affect Description: Constricted Patient Cognition Impaired: Yes Ability to Follow Directions: Good Speech Pattern: Clear Hallucinations: None Delusions: Not Present Thought Process: Distracted and Slowed Thinking Thought Content: positive for [place] and positive for Poverty of Content Judgement: Poor Diagnostics Vital Signs (24Hr): Vital Signs - 24 hr 09/19/24 20:00 09/20/24 08:00 Temperature 97.6 F 98.2 F Pulse Rate 73 105 H Respiratory Rate 18 16 Blood Pressure 109/54 L 114/73 Pulse Oximetry 96 98 Oxygen Delivery Method Room Air Room Air BMI result Body Mass Index 20.5 Labs 08/27/24 10:00 08/29/24 17:32 Imaging Radiology Impressions: ITS Impressions Head CT 08/25/24 11:33 IMPRESSION: No acute intracranial abnormality. Electronically signed by: Cj Colunga MD 08/25/2024 12:12 PM [facility] [place] Medications Medications Current Medications Acetaminophen (Acetaminophen 325 Mg Tablet) 650 mg PO Q6H PRN PRN Reason: Headache/Pain, Scale 1-10 Last Admin: 08/30/24 20:35 Dose: 650 mg Al Hydroxide/Mg Hydroxide (Magnesium Hydrox/Alum Hydrox 30 Ml Oral.Susp) 30 ml PO Q6H PRN PRN Reason: Heartburn/Nausea Aripiprazole (Aripiprazole 30 Mg Tablet) 30 mg PO DAILY [facility] Last Admin: 09/20/24 08:31 Dose: 30 mg Benzocaine (Throat Lozenge, Medicated Lozenge) 1 lozenge MUCOUS MEM Q1H PRN PRN Reason: Sore Throat Last Admin: 09/01/24 06:09 Dose: 1 lozenge Cefuroxime Axetil (Cefuroxime Axetil 250 Mg Tablet) 250 mg PO BID [facility] Last Admin: 03/25/25 08:31 Dose: 250 mg Guaifenesin/Dextromethorphan (Guaifenesin Dm 200/20/10 Ml 10 Ml Syrup) 10 ml PO Q4H PRN PRN Reason: Cough Last Admin: 08/30/24 05:47 Dose: 10 ml Levothyroxine Sodium (Levothyroxine Sodium 75 Mcg Tablet) 75 mcg PO DAILY@0630 [facility] Last Admin: 09/20/24 05:57 Dose: 75 mcg Lidocaine/Diphenhydr/Alum/Mg/Simeth (Mag&Al/Sim/Diphenhyd/Lidocaine 10 Ml Oral.Susp) 10 ml PO Q6H PRN; Protocol PRN Reason: Painful Gums Last Admin: 08/26/24 13:38 Dose: 10 ml Lorazepam (Lorazepam 0.5 Mg Tablet) 0.5 mg PO BID [facility] Last Admin: 09/20/24 08:31 Dose: 0.5 mg Magnesium Hydroxide (Milk Of Magnesia 30 Ml Oral.Susp) 30 ml PO DAILY PRN PRN Reason: Constipation Memantine (Memantine Hcl 5 Mg Tablet) 5 mg PO DAILY [facility] Last Admin: 09/20/24 08:31 Dose: 5 mg Olanzapine (Olanzapine Odt 10 Mg Tab.Rapdis) 5 mg TRANSLINGU Q6H PRN PRN Reason: Agitation Pravastatin Sodium (Pravastatin Sodium 40 Mg Tablet) 40 mg PO BEDTIME [facility] Last Admin: 09/19/24 20:26 Dose: 40 mg Vitamin D (Cholecalciferol (Vitamin D3) 25 Mcg Tablet) 50 mcg PO DAILY [facility] Last Admin: 09/20/24 08:31 Dose: 50 mcg Allergies Allergies Allergy/AdvReac Type Severity Reaction Status Date / Time meperidine [From Demerol] AdvReac Intermediate Rash Verified 08/23/24 19:34 morphine AdvReac Intermediate Rash Verified 08/23/24 19:35 Sulfa (Sulfonamide AdvReac Intermediate Rash Verified 08/23/24 19:36 Antibiotics) Assessment & Plan Assessment & Plan (1) Schizoaffective disorder: Status: Acute Code(s): F25.9 - Schizoaffective disorder, unspecified Plan Ms. Thomas is a 69 year-old woman with hx of Bipolar Disorder, she currently presents with several symptoms suggestive of negative symptoms seem usually in schizoaffective disorder including constricted affect, abulia (some acknowledgment that she needed to initiate certain activities like going to dentist but still not doing so for unclear reasons). No overt paranoid delusions, her delayed response may be signs of thought blocking and underlying psychosis. She is in agreement to receive treatment and complete work up to also assess her memory and cognition. We discussed restarting abilify, which was started while she was in the ED- will titrate dose. 08/[address] shows atrophy. pending MOCA/ACL. continue abilify but may increase and add low dose ativan. 08/26 will increased abilify to 15mg po daily. will add low dose ativan- wonder if it helps with delayed response, and some staring. 08/27: T102, URI Sx. influenza A POS. UA NEG. tamiflu, droplet precautions. increase HS ativan to 1 mg. otherwise continue prior mgmt. 08/28: no requests or complaints, appears drained, resting in bed. continue current mgmt. 08/29- continue to present febrile, this AM 101.F, O2sat on RA 94%, limited oral intake yesterday, ordered labs to monitor dehydration. pt after encouragement, drinking cup of orange juice, some water, bananas and saltine crackers. pending labs. 08/30 continue tx. afebrile today for most of the day. O2sat on RA 96%. less cough, no signs of respiratory distress. taking medications. 08/31 family meeting- discussed filing for guardianship, she is currently taking medications. no longer symptomatic in terms of Influenza. afebrile, no respiratory distress. 09/01 continue tx. will complete guardianship papers 09/02 guardianship filed. continue tx. started on namenda target abulia. abilify increased to 20mg po daily. 09/03 continue tx. 09/04 continue tx. 09/05 continue tx. 09/06 continue tx. 09/07 continue tx. 09/08: stable. no questions or complaints. continue current mgmt. 09/09 will increase abilify to 30mg po daily. 09/10/2024 Question if increase Abilify is worsening blunting and bulimia 09/11/2024 Continue Abilify might consider Latuda Provigil unclear what patient's baseline is 09/12 continue tx. 09/13 continue tx. 09/14 continue tx. 09/15 continue tx. 09/16 continue tx. VS stable. 09/17 Patient presents as suspicious and guarded with service writer. Patient kind of walking out of her room but at the side of service writer, backs up into her room, then walks out a little then backs up a little... She is vague with service writer but denies any psychiatric symptoms. -taking meds 09/18 paranoid, guarded; says yes to dysuria. Started on Ceftin for UTI. 09/19 keep same treatment. 09/20 keep same treatment. Reason for continued inpatient stay Substantial Risk for: inability to function, rapid decompensation and med/psych decompensation Time Spent With Patient Time: Total time managing care of this patient today ____ minutes.
[2024-09-20 20:00] VITALS: BP 118/57; PULSE 77; TEMP 36.9; O2SAT 96
[2024-09-21 08:00] VITALS: BP 126/58; PULSE 85; RESP 18; TEMP 36.6; O2SAT 99
[2024-09-21] MEDS: ARIPiprazole 30 MG TABLET PO (08:47)
--- NOTE | 2024-09-21 14:06 | P.PNPSI_ITS ---
Subjective Subjective Date of Service: 09/21/24 Reason For Visit: bipolar 1 disorder current or most recent epi Interim History: The nursing staff reported the patient ate 75% of her food, irritable at times. The occupational therapist reported that she went to groups. On interview the patient denies new symptoms pleasantly confused easily redirectable. Mental Status Exam Mental Status Exam Patient Appearance: Appropriate Patient Orientation: Person and Situation Level of Consciousness: Awake Patient Behavior: Guarded and Passive Mood Description: Withdrawn Affect Description: Constricted Patient Cognition Impaired: Yes Ability to Follow Directions: Good Speech Pattern: Clear Hallucinations: None Delusions: Not Present Thought Process: Distracted and Slowed Thinking Thought Content: positive for [place] and positive for Poverty of Content Judgement: Fair Diagnostics Vital Signs (24Hr): Vital Signs - 24 hr 09/20/24 20:00 09/21/24 08:00 Temperature 98.4 F 97.9 F Pulse Rate 77 85 Respiratory Rate 18 Blood Pressure 118/57 L 126/58 L Pulse Oximetry 96 99 Oxygen Delivery Method Room Air Room Air BMI result Body Mass Index 20.5 Labs 08/27/24 10:00 08/29/24 17:32 Imaging Radiology Impressions: ITS Impressions Head CT 08/25/24 11:33 IMPRESSION: No acute intracranial abnormality. Electronically signed by: Cj Colunga MD 08/25/2024 12:12 PM [facility] Medications Medications Current Medications Acetaminophen (Acetaminophen 325 Mg Tablet) 650 mg PO Q6H PRN PRN Reason: Headache/Pain, Scale 1-10 Last Admin: 08/30/24 20:35 Dose: 650 mg Al Hydroxide/Mg Hydroxide (Magnesium Hydrox/Alum Hydrox 30 Ml Oral.Susp) 30 ml PO Q6H PRN PRN Reason: Heartburn/Nausea Aripiprazole (Aripiprazole 30 Mg Tablet) 30 mg PO DAILY [facility] Last Admin: 09/21/24 08:47 Dose: 30 mg Benzocaine (Throat Lozenge, Medicated Lozenge) 1 lozenge MUCOUS MEM Q1H PRN PRN Reason: Sore Throat Last Admin: 09/01/24 06:09 Dose: 1 lozenge Cefuroxime Axetil (Cefuroxime Axetil 250 Mg Tablet) 250 mg PO BID [facility] Last Admin: 09/21/24 08:47 Dose: 250 mg Guaifenesin/Dextromethorphan (Guaifenesin Dm 200/20/10 Ml 10 Ml Syrup) 10 ml PO Q4H PRN PRN Reason: Cough Last Admin: 08/30/24 05:47 Dose: 10 ml Levothyroxine Sodium (Levothyroxine Sodium 75 Mcg Tablet) 75 mcg PO DAILY@0630 [facility] Last Admin: 09/21/24 06:18 Dose: 75 mcg Lidocaine/Diphenhydr/Alum/Mg/Simeth (Mag&Al/Sim/Diphenhyd/Lidocaine 10 Ml Oral.Susp) 10 ml PO Q6H PRN; Protocol PRN Reason: Painful Gums Last Admin: 08/26/24 13:38 Dose: 10 ml Lorazepam (Lorazepam 0.5 Mg Tablet) 0.5 mg PO BID [facility] Last Admin: 09/21/24 08:47 Dose: 0.5 mg Magnesium Hydroxide (Milk Of Magnesia 30 Ml Oral.Susp) 30 ml PO DAILY PRN PRN Reason: Constipation Memantine (Memantine Hcl 5 Mg Tablet) 5 mg PO DAILY [facility] Last Admin: 09/21/24 08:47 Dose: 5 mg Olanzapine (Olanzapine Odt 10 Mg Tab.Rapdis) 5 mg TRANSLINGU Q6H PRN PRN Reason: Agitation Pravastatin Sodium (Pravastatin Sodium 40 Mg Tablet) 40 mg PO BEDTIME [facility] Last Admin: 09/20/24 20:14 Dose: 40 mg Vitamin D (Cholecalciferol (Vitamin D3) 25 Mcg Tablet) 50 mcg PO DAILY [facility] Last Admin: 09/21/24 08:47 Dose: 50 mcg Allergies Allergies Allergy/AdvReac Type Severity Reaction Status Date / Time meperidine [From Demerol] AdvReac Intermediate Rash Verified 08/23/24 19:34 morphine AdvReac Intermediate Rash Verified 08/23/24 19:35 Sulfa (Sulfonamide AdvReac Intermediate Rash Verified 08/23/24 19:36 Antibiotics) Assessment & Plan Assessment & Plan (1) Schizoaffective disorder: Status: Acute Code(s): F25.9 - Schizoaffective disorder, unspecified Plan Ms. Thomas is a 69 year-old woman with hx of Bipolar Disorder, she currently presents with several symptoms suggestive of negative symptoms seem usually in schizoaffective disorder including constricted affect, abulia (some acknowledgment that she needed to initiate certain activities like going to dentist but still not doing so for unclear reasons). No overt paranoid delusions, her delayed response may be signs of thought blocking and underlying psychosis. She is in agreement to receive treatment and complete work up to also assess her memory and cognition. We discussed restarting abilify, which was started while she was in the ED- will titrate dose. 08/[address] shows atrophy. pending MOCA/ACL. continue abilify but may increase and add low dose ativan. 08/26 will increased abilify to 15mg po daily. will add low dose ativan- wonder if it helps with delayed response, and some staring. 08/27: T102, URI Sx. influenza A POS. UA NEG. tamiflu, droplet precautions. increase HS ativan to 1 mg. otherwise continue prior mgmt. 08/28: no requests or complaints, appears drained, resting in bed. continue current mgmt. 08/29- continue to present febrile, this AM 101.F, O2sat on RA 94%, limited oral intake yesterday, ordered labs to monitor dehydration. pt after encouragement, drinking cup of orange juice, some water, bananas and saltine crackers. pending labs. 08/30 continue tx. afebrile today for most of the day. O2sat on RA 96%. less cough, no signs of respiratory distress. taking medications. 08/31 family meeting- discussed filing for guardianship, she is currently taking medications. no longer symptomatic in terms of Influenza. afebrile, no respiratory distress. 09/01 continue tx. will complete guardianship papers 09/02 guardianship filed. continue tx. started on namenda target abulia. abilify increased to 20mg po daily. 09/03 continue tx. 09/04 continue tx. 09/05 continue tx. 09/06 continue tx. 09/07 continue tx. 09/08: stable. no questions or complaints. continue current mgmt. 09/09 will increase abilify to 30mg po daily. 09/10/2024 Question if increase Abilify is worsening blunting and bulimia 09/11/2024 Continue Abilify might consider Latuda Provigil unclear what patient's baseline is 09/12 continue tx. 09/13 continue tx. 09/14 continue tx. 09/15 continue tx. 09/16 continue tx. VS stable. 09/17 Patient presents as suspicious and guarded with financial writer. Patient kind of walking out of her room but at the side of financial writer, backs up into her room, then walks out a little then backs up a little... She is vague with financial writer but denies any psychiatric symptoms. -taking meds 09/18 paranoid, guarded; says yes to dysuria. Started on Ceftin for UTI 09/20 keep same treatment Reason for continued inpatient stay Substantial Risk for: inability to function, rapid decompensation and med/psych decompensation Time Spent With Patient Time: Total time managing care of this patient today __20__ minutes.
[2024-09-21 20:00] VITALS: BP 114/58; PULSE 77; RESP 16; TEMP 36.7; O2SAT 97
[2024-09-22 08:00] VITALS: BP 137/63; PULSE 84; RESP 18; TEMP 36.8; O2SAT 98
[2024-09-22] MEDS: ARIPiprazole 30 MG TABLET PO (08:14)
[2024-09-22 09:42] VITALS: BMI 20.5
--- NOTE | 2024-09-22 16:35 | P.PNPSI_ITS ---
Subjective Subjective Date of Service: 09/22/24 Reason For Visit: bipolar 1 disorder current or most recent epi Subjective Notes: Conditional Voluntary Interim History: The nursing staff reported the patient had been withdrawn, compliant with her medications pleasant cooperative, slept 6 hours. The social media designer reported that contacted for discharge planning. On interview the patient denies new symptoms pleasantly confused easily redirectable. Waiting for conservatorship. Mental Status Exam Mental Status Exam Patient Appearance: Appropriate Patient Orientation: Person and Situation Level of Consciousness: Awake Patient Behavior: Guarded and Passive Mood Description: Withdrawn Affect Description: Constricted Patient Cognition Impaired: Yes Ability to Follow Directions: Good Speech Pattern: Clear Hallucinations: None Delusions: Not Present Thought Process: Distracted and Slowed Thinking Thought Content: positive for [place] and positive for Poverty of Content Judgement: Fair Diagnostics Vital Signs (24Hr): Vital Signs - 24 hr 09/21/24 20:00 09/22/24 08:00 Temperature 98.1 F 98.2 F Pulse Rate 77 84 Respiratory Rate 16 18 Blood Pressure 114/58 L 137/63 Pulse Oximetry 97 98 Oxygen Delivery Method Room Air Room Air BMI result Body Mass Index 20.5 Labs 08/27/24 10:00 08/29/24 17:32 Imaging Radiology Impressions: ITS Impressions Head CT 08/25/24 11:33 IMPRESSION: No acute intracranial abnormality. Electronically signed by: Cj Colunga MD 08/25/2024 12:12 PM [facility] [place] Medications Medications Current Medications Acetaminophen (Acetaminophen 325 Mg Tablet) 650 mg PO Q6H PRN PRN Reason: Headache/Pain, Scale 1-10 Last Admin: 08/30/24 20:35 Dose: 650 mg Al Hydroxide/Mg Hydroxide (Magnesium Hydrox/Alum Hydrox 30 Ml Oral.Susp) 30 ml PO Q6H PRN PRN Reason: Heartburn/Nausea Aripiprazole (Aripiprazole 30 Mg Tablet) 30 mg PO DAILY [facility] Last Admin: 09/22/24 08:14 Dose: 30 mg Benzocaine (Throat Lozenge, Medicated Lozenge) 1 lozenge MUCOUS MEM Q1H PRN PRN Reason: Sore Throat Last Admin: 09/01/24 06:09 Dose: 1 lozenge Cefuroxime Axetil (Cefuroxime Axetil 250 Mg Tablet) 250 mg PO BID [facility] Last Admin: 09/22/24 08:13 Dose: 250 mg Guaifenesin/Dextromethorphan (Guaifenesin Dm 200/20/10 Ml 10 Ml Syrup) 10 ml PO Q4H PRN PRN Reason: Cough Last Admin: 08/30/24 05:47 Dose: 10 ml Levothyroxine Sodium (Levothyroxine Sodium 75 Mcg Tablet) 75 mcg PO DAILY@0630 [facility] Last Admin: 09/22/24 06:21 Dose: 75 mcg Lidocaine/Diphenhydr/Alum/Mg/Simeth (Mag&Al/Sim/Diphenhyd/Lidocaine 10 Ml Oral.Susp) 10 ml PO Q6H PRN; Protocol PRN Reason: Painful Gums Last Admin: 08/26/24 13:38 Dose: 10 ml Lorazepam (Lorazepam 0.5 Mg Tablet) 0.5 mg PO BID [facility] Last Admin: 09/22/24 08:14 Dose: 0.5 mg Magnesium Hydroxide (Milk Of Magnesia 30 Ml Oral.Susp) 30 ml PO DAILY PRN PRN Reason: Constipation Memantine (Memantine Hcl 5 Mg Tablet) 5 mg PO DAILY [facility] Last Admin: 09/22/24 08:14 Dose: 5 mg Olanzapine (Olanzapine Odt 10 Mg Tab.Rapdis) 5 mg TRANSLINGU Q6H PRN PRN Reason: Agitation Pravastatin Sodium (Pravastatin Sodium 40 Mg Tablet) 40 mg PO BEDTIME [facility] Last Admin: 09/21/24 20:15 Dose: 40 mg Vitamin D (Cholecalciferol (Vitamin D3) 25 Mcg Tablet) 50 mcg PO DAILY [facility] Last Admin: 09/22/24 08:14 Dose: 50 mcg Allergies Allergies Allergy/AdvReac Type Severity Reaction Status Date / Time meperidine [From Demerol] AdvReac Intermediate Rash Verified 08/23/24 19:34 morphine AdvReac Intermediate Rash Verified 08/23/24 19:35 Sulfa (Sulfonamide AdvReac Intermediate Rash Verified 08/23/24 19:36 Antibiotics) Assessment & Plan Assessment & Plan (1) Schizoaffective disorder: Status: Acute Code(s): F25.9 - Schizoaffective disorder, unspecified Plan Ms. Thomas is a 69 year-old woman with hx of Bipolar Disorder, she currently presents with several symptoms suggestive of negative symptoms seem usually in schizoaffective disorder including constricted affect, abulia (some acknowledgment that she needed to initiate certain activities like going to dentist but still not doing so for unclear reasons). No overt paranoid delusions, her delayed response may be signs of thought blocking and underlying psychosis. She is in agreement to receive treatment and complete work up to also assess her memory and cognition. We discussed restarting abilify, which was started while she was in the ED- will titrate dose. 08/[address] shows atrophy. pending MOCA/ACL. continue abilify but may increase and add low dose ativan. 08/26 will increased abilify to 15mg po daily. will add low dose ativan- wonder if it helps with delayed response, and some staring. 08/27: T102, URI Sx. influenza A POS. UA NEG. tamiflu, droplet precautions. increase HS ativan to 1 mg. otherwise continue prior mgmt. 08/28: no requests or complaints, appears drained, resting in bed. continue current mgmt. 08/29- continue to present febrile, this AM 101.F, O2sat on RA 94%, limited oral intake yesterday, ordered labs to monitor dehydration. pt after encouragement, drinking cup of orange juice, some water, bananas and saltine crackers. pending labs. 08/30 continue tx. afebrile today for most of the day. O2sat on RA 96%. less cough, no signs of respiratory distress. taking medications. 08/31 family meeting- discussed filing for guardianship, she is currently taking medications. no longer symptomatic in terms of Influenza. afebrile, no respiratory distress. 09/01 continue tx. will complete guardianship papers 09/02 guardianship filed. continue tx. started on namenda target abulia. abilify increased to 20mg po daily. 09/03 continue tx. 09/04 continue tx. 09/05 continue tx. 09/06 continue tx. 09/07 continue tx. 09/08: stable. no questions or complaints. continue current mgmt. 09/09 will increase abilify to 30mg po daily. 09/10/2024 Question if increase Abilify is worsening blunting and bulimia 09/11/2024 Continue Abilify might consider Latuda Provigil unclear what patient's baseline is 09/12 continue tx. 09/13 continue tx. 09/14 continue tx. 09/15 continue tx. 09/16 continue tx. VS stable. 09/17 Patient presents as suspicious and guarded with contract technical writer. Patient kind of walking out of her room but at the side of contract technical writer, backs up into her room, then walks out a little then backs up a little... She is vague with contract technical writer but denies any psychiatric symptoms. -taking meds 09/18 paranoid, guarded; says yes to dysuria. Started on Ceftin for UTI 09/20 keep same treatment 09/22 keep same treatment Reason for continued inpatient stay Substantial Risk for: inability to function, rapid decompensation and med/psych decompensation Time Spent With Patient Time: Total time managing care of this patient today __20__ minutes.
[2024-09-22 19:41] VITALS: BP 125/62; PULSE 72; RESP 16; TEMP 36.9; O2SAT 96
[2024-09-23 08:23] VITALS: BP 127/72; PULSE 115; RESP 18; TEMP 36.5; O2SAT 98
[2024-09-23] MEDS: ARIPiprazole 30 MG TABLET PO (08:24)
--- NOTE | 2024-09-23 16:29 | HO.PSYCHPN ---
Subjective Subjective Date of Service: 09/23/24 Reason For Visit: bipolar 1 disorder current or most recent epi Subjective Notes: Conditional Voluntary Interim History: The nursing staff reported the patient had been pleasant, with flat affect ate 75% of her breakfast slept 8 hours. On interview the patient denies new symptoms waiting for placement. Mental Status Exam Mental Status Exam Patient Appearance: Appropriate Patient Orientation: Person Level of Consciousness: Awake and Appropriate Patient Behavior: Guarded and Passive Mood Description: Withdrawn Affect Description: Constricted Patient Cognition Impaired: Yes Ability to Follow Directions: Good Speech Pattern: Clear Hallucinations: None Delusions: Ideas of Reference Thought Process: Distracted and Slowed Thinking Thought Content: positive for [place] and positive for Poverty of Content Judgement: Fair Diagnostics Vital Signs (24Hr): Vital Signs - 24 hr 09/22/24 19:41 09/23/24 08:23 Temperature 98.4 F 97.7 F Pulse Rate 72 115 H Respiratory Rate 16 18 Blood Pressure 125/62 127/72 Pulse Oximetry 96 98 Oxygen Delivery Method Room Air Room Air BMI result Body Mass Index 20.5 Labs 08/27/24 10:00 08/29/24 17:32 Imaging Radiology Impressions: ITS Impressions Head CT 08/25/24 11:33 IMPRESSION: No acute intracranial abnormality. Electronically signed by: Cj Colunga MD 08/25/2024 12:12 PM [facility] [place] Medications Medications Current Medications Acetaminophen (Acetaminophen 325 Mg Tablet) 650 mg PO Q6H PRN PRN Reason: Headache/Pain, Scale 1-10 Last Admin: 08/30/24 20:35 Dose: 650 mg Al Hydroxide/Mg Hydroxide (Magnesium Hydrox/Alum Hydrox 30 Ml Oral.Susp) 30 ml PO Q6H PRN PRN Reason: Heartburn/Nausea Aripiprazole (Aripiprazole 30 Mg Tablet) 30 mg PO DAILY [facility] Last Admin: 09/23/24 08:24 Dose: 30 mg Benzocaine (Throat Lozenge, Medicated Lozenge) 1 lozenge MUCOUS MEM Q1H PRN PRN Reason: Sore Throat Last Admin: 09/01/24 06:09 Dose: 1 lozenge Cefuroxime Axetil (Cefuroxime Axetil 250 Mg Tablet) 250 mg PO BID [facility] Last Admin: 09/23/24 08:24 Dose: 250 mg Guaifenesin/Dextromethorphan (Guaifenesin Dm 200/20/10 Ml 10 Ml Syrup) 10 ml PO Q4H PRN PRN Reason: Cough Last Admin: 08/30/24 05:47 Dose: 10 ml Levothyroxine Sodium (Levothyroxine Sodium 75 Mcg Tablet) 75 mcg PO DAILY@0630 [facility] Last Admin: 09/23/24 05:40 Dose: 75 mcg Lidocaine/Diphenhydr/Alum/Mg/Simeth (Mag&Al/Sim/Diphenhyd/Lidocaine 10 Ml Oral.Susp) 10 ml PO Q6H PRN; Protocol PRN Reason: Painful Gums Last Admin: 08/26/24 13:38 Dose: 10 ml Lorazepam (Lorazepam 0.5 Mg Tablet) 0.5 mg PO BID [facility] Last Admin: 09/23/24 08:25 Dose: 0.5 mg Magnesium Hydroxide (Milk Of Magnesia 30 Ml Oral.Susp) 30 ml PO DAILY PRN PRN Reason: Constipation Memantine (Memantine Hcl 5 Mg Tablet) 5 mg PO DAILY [facility] Last Admin: 09/23/24 08:25 Dose: 5 mg Olanzapine (Olanzapine Odt 10 Mg Tab.Rapdis) 5 mg TRANSLINGU Q6H PRN PRN Reason: Agitation Pravastatin Sodium (Pravastatin Sodium 40 Mg Tablet) 40 mg PO BEDTIME [facility] Last Admin: 09/22/24 19:46 Dose: 40 mg Vitamin D (Cholecalciferol (Vitamin D3) 25 Mcg Tablet) 50 mcg PO DAILY [facility] Last Admin: 09/23/24 08:24 Dose: 50 mcg Allergies Allergies Allergy/AdvReac Type Severity Reaction Status Date / Time meperidine [From Demerol] AdvReac Intermediate Rash Verified 08/23/24 19:34 morphine AdvReac Intermediate Rash Verified 08/23/24 19:35 Sulfa (Sulfonamide AdvReac Intermediate Rash Verified 08/23/24 19:36 Antibiotics) Assessment & Plan Assessment & Plan (1) Schizoaffective disorder: Status: Acute Code(s): F25.9 - Schizoaffective disorder, unspecified Plan Ms. Thomas is a 69 year-old woman with hx of Bipolar Disorder, she currently presents with several symptoms suggestive of negative symptoms seem usually in schizoaffective disorder including constricted affect, abulia (some acknowledgment that she needed to initiate certain activities like going to dentist but still not doing so for unclear reasons). No overt paranoid delusions, her delayed response may be signs of thought blocking and underlying psychosis. She is in agreement to receive treatment and complete work up to also assess her memory and cognition. We discussed restarting abilify, which was started while she was in the ED- will titrate dose. 08/[address] shows atrophy. pending MOCA/ACL. continue abilify but may increase and add low dose ativan. 08/26 will increased abilify to 15mg po daily. will add low dose ativan- wonder if it helps with delayed response, and some staring. 08/27: T102, URI Sx. influenza A POS. UA NEG. tamiflu, droplet precautions. increase HS ativan to 1 mg. otherwise continue prior mgmt. 08/28: no requests or complaints, appears drained, resting in bed. continue current mgmt. 08/29- continue to present febrile, this AM 101.F, O2sat on RA 94%, limited oral intake yesterday, ordered labs to monitor dehydration. pt after encouragement, drinking cup of orange juice, some water, bananas and saltine crackers. pending labs. 08/30 continue tx. afebrile today for most of the day. O2sat on RA 96%. less cough, no signs of respiratory distress. taking medications. 08/31 family meeting- discussed filing for guardianship, she is currently taking medications. no longer symptomatic in terms of Influenza. afebrile, no respiratory distress. 09/01 continue tx. will complete guardianship papers 09/02 guardianship filed. continue tx. started on namenda target abulia. abilify increased to 20mg po daily. 09/03 continue tx. 09/04 continue tx. 09/05 continue tx. 09/06 continue tx. 09/07 continue tx. 09/08: stable. no questions or complaints. continue current mgmt. 09/09 will increase abilify to 30mg po daily. 09/10/2024 Question if increase Abilify is worsening blunting and bulimia 09/11/2024 Continue Abilify might consider Latuda Provigil unclear what patient's baseline is 09/12 continue tx. 09/13 continue tx. 09/14 continue tx. 09/15 continue tx. 09/16 continue tx. VS stable. 09/17 Patient presents as suspicious and guarded with global technical writer. Patient kind of walking out of her room but at the side of global technical writer, backs up into her room, then walks out a little then backs up a little... She is vague with global technical writer but denies any psychiatric symptoms. -taking meds 09/18 paranoid, guarded; says yes to dysuria. Started on Ceftin for UTI 09/20 keep same treatment 09/22 keep same treatment 09/23 keep same treatment Reason for continued inpatient stay Substantial Risk for: inability to function, rapid decompensation and med/psych decompensation Time Spent With Patient Time: Total time managing care of this patient today __20__ minutes.
[2024-09-23 20:00] VITALS: BP 113/64; PULSE 89; RESP 18; TEMP 35.9; O2SAT 98
[2024-09-24 08:00] VITALS: BP 117/57; PULSE 97; RESP 16; TEMP 36; O2SAT 98
[2024-09-24] MEDS: ARIPiprazole 30 MG TABLET PO (08:27)
--- NOTE | 2024-09-24 16:11 | HO.PSYCHPN ---
Subjective Subjective Date of Service: 09/24/24 Reason For Visit: bipolar 1 disorder current or most recent epi Interim History: in bed, calm, cooperative. no questions, complaints, requests. per staff, no issues. no SI/HI. on antibx for UTI. eating and sleeping well. Mental Status Exam Mental Status Exam Patient Appearance: Appropriate Patient Orientation: Person Level of Consciousness: Awake and Appropriate Patient Behavior: Guarded and Passive Mood Description: Withdrawn Affect Description: Constricted Patient Cognition Impaired: Yes Ability to Follow Directions: Good Speech Pattern: Clear Hallucinations: None Delusions: Ideas of Reference Thought Process: Distracted and Slowed Thinking Thought Content: positive for [place] and positive for Poverty of Content Judgement: Fair Diagnostics Vital Signs (24Hr): Vital Signs - 24 hr 09/23/24 20:00 09/24/24 08:00 Temperature 96.7 F L 96.8 F Pulse Rate 89 97 Respiratory Rate 18 16 Blood Pressure 113/64 117/57 L Pulse Oximetry 98 98 Oxygen Delivery Method Room Air Room Air BMI result Body Mass Index 20.5 Labs 08/27/24 10:00 08/29/24 17:32 Imaging Radiology Impressions: ITS Impressions Head CT 08/25/24 11:33 IMPRESSION: No acute intracranial abnormality. Electronically signed by: Cj Colunga MD 08/25/2024 12:12 PM [facility] [place] Medications Medications Current Medications Acetaminophen (Acetaminophen 325 Mg Tablet) 650 mg PO Q6H PRN PRN Reason: Headache/Pain, Scale 1-10 Last Admin: 08/30/24 20:35 Dose: 650 mg Al Hydroxide/Mg Hydroxide (Magnesium Hydrox/Alum Hydrox 30 Ml Oral.Susp) 30 ml PO Q6H PRN PRN Reason: Heartburn/Nausea Aripiprazole (Aripiprazole 30 Mg Tablet) 30 mg PO DAILY [facility] Last Admin: 09/24/24 08:27 Dose: 30 mg Benzocaine (Throat Lozenge, Medicated Lozenge) 1 lozenge MUCOUS MEM Q1H PRN PRN Reason: Sore Throat Last Admin: 09/01/24 06:09 Dose: 1 lozenge Cefuroxime Axetil (Cefuroxime Axetil 250 Mg Tablet) 250 mg PO BID [facility] Last Admin: 09/24/24 08:27 Dose: 250 mg Guaifenesin/Dextromethorphan (Guaifenesin Dm 200/20/10 Ml 10 Ml Syrup) 10 ml PO Q4H PRN PRN Reason: Cough Last Admin: 08/30/24 05:47 Dose: 10 ml Levothyroxine Sodium (Levothyroxine Sodium 75 Mcg Tablet) 75 mcg PO DAILY@0630 [facility] Last Admin: 09/24/24 05:44 Dose: 75 mcg Lidocaine/Diphenhydr/Alum/Mg/Simeth (Mag&Al/Sim/Diphenhyd/Lidocaine 10 Ml Oral.Susp) 10 ml PO Q6H PRN; Protocol PRN Reason: Painful Gums Last Admin: 08/26/24 13:38 Dose: 10 ml Lorazepam (Lorazepam 0.5 Mg Tablet) 0.5 mg PO BID [facility] Last Admin: 09/24/24 08:27 Dose: 0.5 mg Magnesium Hydroxide (Milk Of Magnesia 30 Ml Oral.Susp) 30 ml PO DAILY PRN PRN Reason: Constipation Memantine (Memantine Hcl 5 Mg Tablet) 5 mg PO DAILY [facility] Last Admin: 09/24/24 08:28 Dose: 5 mg Olanzapine (Olanzapine Odt 10 Mg Tab.Rapdis) 5 mg TRANSLINGU Q6H PRN PRN Reason: Agitation Pravastatin Sodium (Pravastatin Sodium 40 Mg Tablet) 40 mg PO BEDTIME [facility] Last Admin: 09/23/24 20:14 Dose: 40 mg Vitamin D (Cholecalciferol (Vitamin D3) 25 Mcg Tablet) 50 mcg PO DAILY [facility] Last Admin: 09/24/24 08:27 Dose: 50 mcg Allergies Allergies Allergy/AdvReac Type Severity Reaction Status Date / Time meperidine [From Demerol] AdvReac Intermediate Rash Verified 08/23/24 19:34 morphine AdvReac Intermediate Rash Verified 08/23/24 19:35 Sulfa (Sulfonamide AdvReac Intermediate Rash Verified 08/23/24 19:36 Antibiotics) Assessment & Plan Assessment & Plan (1) Schizoaffective disorder: Status: Acute Code(s): F25.9 - Schizoaffective disorder, unspecified Plan Ms. Thomas is a 69 year-old woman with hx of Bipolar Disorder, she currently presents with several symptoms suggestive of negative symptoms seem usually in schizoaffective disorder including constricted affect, abulia (some acknowledgment that she needed to initiate certain activities like going to dentist but still not doing so for unclear reasons). No overt paranoid delusions, her delayed response may be signs of thought blocking and underlying psychosis. She is in agreement to receive treatment and complete work up to also assess her memory and cognition. We discussed restarting abilify, which was started while she was in the ED- will titrate dose. 08/[address] shows atrophy. pending MOCA/ACL. continue abilify but may increase and add low dose ativan. 08/26 will increased abilify to 15mg po daily. will add low dose ativan- wonder if it helps with delayed response, and some staring. 08/27: T102, URI Sx. influenza A POS. UA NEG. tamiflu, droplet precautions. increase HS ativan to 1 mg. otherwise continue prior mgmt. 08/28: no requests or complaints, appears drained, resting in bed. continue current mgmt. 08/29- continue to present febrile, this AM 101.F, O2sat on RA 94%, limited oral intake yesterday, ordered labs to monitor dehydration. pt after encouragement, drinking cup of orange juice, some water, bananas and saltine crackers. pending labs. 08/30 continue tx. afebrile today for most of the day. O2sat on RA 96%. less cough, no signs of respiratory distress. taking medications. 08/31 family meeting- discussed filing for guardianship, she is currently taking medications. no longer symptomatic in terms of Influenza. afebrile, no respiratory distress. 09/01 continue tx. will complete guardianship papers 09/02 guardianship filed. continue tx. started on namenda target abulia. abilify increased to 20mg po daily. 09/03 continue tx. 09/04 continue tx. 09/05 continue tx. 09/06 continue tx. 09/07 continue tx. 09/08: stable. no questions or complaints. continue current mgmt. 09/09 will increase abilify to 30mg po daily. 09/10/2024 Question if increase Abilify is worsening blunting and bulimia 09/11/2024 Continue Abilify might consider Latuda Provigil unclear what patient's baseline is 09/12 continue tx. 09/13 continue tx. 09/14 continue tx. 09/15 continue tx. 09/16 continue tx. VS stable. 09/17 Patient presents as suspicious and guarded with data analyst report writer. Patient kind of walking out of her room but at the side of data analyst report writer, backs up into her room, then walks out a little then backs up a little... She is vague with data analyst report writer but denies any psychiatric symptoms. -taking meds 09/18 paranoid, guarded; says yes to dysuria. Started on Ceftin for UTI 09/20 keep same treatment 09/22 keep same treatment 09/23 keep same treatment 09/24: continue current mgmt. stable, safe. no behavioral concerns. Reason for continued inpatient stay Substantial Risk for: inability to function Time Spent With Patient Time: Total time managing care of this patient today ____ minutes.
[2024-09-24 20:00] VITALS: BP 105/59; PULSE 76; RESP 15; TEMP 36.9; O2SAT 97
[2024-09-25 08:00] VITALS: BP 114/59; PULSE 74; RESP 16; TEMP 36.9; O2SAT 97
[2024-09-25] MEDS: ARIPiprazole 30 MG TABLET PO (08:09)
--- NOTE | 2024-09-25 16:03 | P.PNPSI_ITS ---
Subjective Subjective Date of Service: 09/25/24 Reason For Visit: bipolar 1 disorder current or most recent epi Interim History: no requests or complaints. appears comfortable. per staff, flat, withdrawn. no issues, slept 7 hours. taking meds. Mental Status Exam Mental Status Exam Patient Appearance: Appropriate Patient Orientation: Person Level of Consciousness: Awake and Appropriate Patient Behavior: Guarded and Passive Mood Description: Withdrawn Affect Description: Constricted Patient Cognition Impaired: Yes Ability to Follow Directions: Good Speech Pattern: Clear Hallucinations: None Delusions: Ideas of Reference Thought Process: Distracted and Slowed Thinking Thought Content: positive for [place] and positive for Poverty of Content Judgement: Fair Diagnostics Vital Signs (24Hr): Vital Signs - 24 hr 09/24/24 20:00 09/25/24 08:00 Temperature 98.5 F 98.4 F Pulse Rate 76 74 Respiratory Rate 15 16 Blood Pressure 105/59 L 114/59 L Pulse Oximetry 97 97 Oxygen Delivery Method Room Air Room Air BMI result Body Mass Index 20.5 Labs 08/27/24 10:00 08/29/24 17:32 Imaging Radiology Impressions: ITS Impressions Head CT 08/25/24 11:33 IMPRESSION: No acute intracranial abnormality. Electronically signed by: Cj Colunga MD 08/25/2024 12:12 PM [facility] Medications Medications Current Medications Acetaminophen (Acetaminophen 325 Mg Tablet) 650 mg PO Q6H PRN PRN Reason: Headache/Pain, Scale 1-10 Last Admin: 08/30/24 20:35 Dose: 650 mg Al Hydroxide/Mg Hydroxide (Magnesium Hydrox/Alum Hydrox 30 Ml Oral.Susp) 30 ml PO Q6H PRN PRN Reason: Heartburn/Nausea Aripiprazole (Aripiprazole 30 Mg Tablet) 30 mg PO DAILY [facility] Last Admin: 09/25/24 08:09 Dose: 30 mg Benzocaine (Throat Lozenge, Medicated Lozenge) 1 lozenge MUCOUS MEM Q1H PRN PRN Reason: Sore Throat Last Admin: 09/01/24 06:09 Dose: 1 lozenge Cefuroxime Axetil (Cefuroxime Axetil 250 Mg Tablet) 250 mg PO BID [facility] Last Admin: 09/25/24 08:09 Dose: 250 mg Guaifenesin/Dextromethorphan (Guaifenesin Dm 200/20/10 Ml 10 Ml Syrup) 10 ml PO Q4H PRN PRN Reason: Cough Last Admin: 08/30/24 05:47 Dose: 10 ml Levothyroxine Sodium (Levothyroxine Sodium 75 Mcg Tablet) 75 mcg PO DAILY@0630 [facility] Last Admin: 09/25/24 05:59 Dose: 75 mcg Lidocaine/Diphenhydr/Alum/Mg/Simeth (Mag&Al/Sim/Diphenhyd/Lidocaine 10 Ml Oral.Susp) 10 ml PO Q6H PRN; Protocol PRN Reason: Painful Gums Last Admin: 08/26/24 13:38 Dose: 10 ml Lorazepam (Lorazepam 0.5 Mg Tablet) 0.5 mg PO BID [facility] Last Admin: 09/25/24 08:09 Dose: 0.5 mg Magnesium Hydroxide (Milk Of Magnesia 30 Ml Oral.Susp) 30 ml PO DAILY PRN PRN Reason: Constipation Memantine (Memantine Hcl 5 Mg Tablet) 5 mg PO DAILY [facility] Last Admin: 09/25/24 08:08 Dose: 5 mg Olanzapine (Olanzapine Odt 10 Mg Tab.Rapdis) 5 mg TRANSLINGU Q6H PRN PRN Reason: Agitation Pravastatin Sodium (Pravastatin Sodium 40 Mg Tablet) 40 mg PO BEDTIME [facility] Last Admin: 09/24/24 20:39 Dose: 40 mg Vitamin D (Cholecalciferol (Vitamin D3) 25 Mcg Tablet) 50 mcg PO DAILY [facility] Last Admin: 09/25/24 08:09 Dose: 50 mcg Allergies Allergies Allergy/AdvReac Type Severity Reaction Status Date / Time meperidine [From Demerol] AdvReac Intermediate Rash Verified 08/23/24 19:34 morphine AdvReac Intermediate Rash Verified 08/23/24 19:35 Sulfa (Sulfonamide AdvReac Intermediate Rash Verified 08/23/24 19:36 Antibiotics) Assessment & Plan Assessment & Plan (1) Schizoaffective disorder: Status: Acute Code(s): F25.9 - Schizoaffective disorder, unspecified Plan Ms. Thomas is a 69 year-old woman with hx of Bipolar Disorder, she currently presents with several symptoms suggestive of negative symptoms seem usually in schizoaffective disorder including constricted affect, abulia (some acknowledgment that she needed to initiate certain activities like going to dentist but still not doing so for unclear reasons). No overt paranoid delusions, her delayed response may be signs of thought blocking and underlying psychosis. She is in agreement to receive treatment and complete work up to also assess her memory and cognition. We discussed restarting abilify, which was started while she was in the ED- will titrate dose. 08/[address] shows atrophy. pending MOCA/ACL. continue abilify but may increase and add low dose ativan. 08/26 will increased abilify to 15mg po daily. will add low dose ativan- wonder if it helps with delayed response, and some staring. 08/27: T102, URI Sx. influenza A POS. UA NEG. tamiflu, droplet precautions. increase HS ativan to 1 mg. otherwise continue prior mgmt. 08/28: no requests or complaints, appears drained, resting in bed. continue current mgmt. 08/29- continue to present febrile, this AM 101.F, O2sat on RA 94%, limited oral intake yesterday, ordered labs to monitor dehydration. pt after encouragement, drinking cup of orange juice, some water, bananas and saltine crackers. pending labs. 08/30 continue tx. afebrile today for most of the day. O2sat on RA 96%. less cough, no signs of respiratory distress. taking medications. 08/31 family meeting- discussed filing for guardianship, she is currently taking medications. no longer symptomatic in terms of Influenza. afebrile, no respiratory distress. 09/01 continue tx. will complete guardianship papers 09/02 guardianship filed. continue tx. started on namenda target abulia. abilify increased to 20mg po daily. 09/03 continue tx. 09/04 continue tx. 09/05 continue tx. 09/06 continue tx. 09/07 continue tx. 09/08: stable. no questions or complaints. continue current mgmt. 09/09 will increase abilify to 30mg po daily. 09/10/2024 Question if increase Abilify is worsening blunting and bulimia 09/11/2024 Continue Abilify might consider Latuda Provigil unclear what patient's baseline is 09/12 continue tx. 09/13 continue tx. 09/14 continue tx. 09/15 continue tx. 09/16 continue tx. VS stable. 09/17 Patient presents as suspicious and guarded with lead technical writer. Patient kind of walking out of her room but at the side of lead technical writer, backs up into her room, then walks out a little then backs up a little... She is vague with lead technical writer but denies any psychiatric symptoms. -taking meds 09/18 paranoid, guarded; says yes to dysuria. Started on Ceftin for UTI 09/20 keep same treatment 09/22 keep same treatment 09/23 keep same treatment 09/24: continue current mgmt. stable, safe. no behavioral concerns. 09/25: no change from yesterday. Reason for continued inpatient stay Substantial Risk for: inability to function Time Spent With Patient Time: Total time managing care of this patient today ____ minutes.
[2024-09-25 20:00] VITALS: BP 100/55; PULSE 89; RESP 16; TEMP 36.8; O2SAT 96
[2024-09-26 08:28] VITALS: BP 119/64; PULSE 96; RESP 16; TEMP 36.6; O2SAT 97
[2024-09-26] MEDS: ARIPiprazole 30 MG TABLET PO (08:31)
--- NOTE | 2024-09-26 08:58 | P.PNPSI_ITS ---
Subjective Subjective Date of Service: 09/26/24 Reason For Visit: bipolar 1 disorder current or most recent epi Subjective Notes: Conditional Voluntary Healthcare Proxy: Yes Interim History: Pt slept through the night. She has been more visible, minimally social. She is out for meals. She is taking medications as prescribed. no overt psychosis or delusions. VS stable, on lower side BP 119/64, HR 96 Medication Compliance: Yes Diagnostics Vital Signs (24Hr): Vital Signs - 24 hr 09/25/24 20:00 09/26/24 08:28 Temperature 98.2 F 97.9 F Pulse Rate 89 96 Respiratory Rate 16 16 Blood Pressure 100/55 L 119/64 Pulse Oximetry 96 97 Oxygen Delivery Method Room Air Room Air BMI result Body Mass Index 20.5 Labs 08/27/24 10:00 08/29/24 17:32 Imaging Radiology Impressions: ITS Impressions Head CT 08/25/24 11:33 IMPRESSION: No acute intracranial abnormality. Electronically signed by: Cj Colunga MD 08/25/2024 12:12 PM [facility] Medications Medications Current Medications Acetaminophen (Acetaminophen 325 Mg Tablet) 650 mg PO Q6H PRN PRN Reason: Headache/Pain, Scale 1-10 Last Admin: 08/30/24 20:35 Dose: 650 mg Al Hydroxide/Mg Hydroxide (Magnesium Hydrox/Alum Hydrox 30 Ml Oral.Susp) 30 ml PO Q6H PRN PRN Reason: Heartburn/Nausea Aripiprazole (Aripiprazole 30 Mg Tablet) 30 mg PO DAILY [facility] Last Admin: 09/26/24 08:31 Dose: 30 mg Benzocaine (Throat Lozenge, Medicated Lozenge) 1 lozenge MUCOUS MEM Q1H PRN PRN Reason: Sore Throat Last Admin: 09/01/24 06:09 Dose: 1 lozenge Cefuroxime Axetil (Cefuroxime Axetil 250 Mg Tablet) 250 mg PO BID [facility] Last Admin: 09/26/24 08:31 Dose: 250 mg Guaifenesin/Dextromethorphan (Guaifenesin Dm 200/20/10 Ml 10 Ml Syrup) 10 ml PO Q4H PRN PRN Reason: Cough Last Admin: 08/30/24 05:47 Dose: 10 ml Levothyroxine Sodium (Levothyroxine Sodium 75 Mcg Tablet) 75 mcg PO DAILY@0630 [facility] Last Admin: 09/26/24 05:51 Dose: 75 mcg Lidocaine/Diphenhydr/Alum/Mg/Simeth (Mag&Al/Sim/Diphenhyd/Lidocaine 10 Ml Oral.Susp) 10 ml PO Q6H PRN; Protocol PRN Reason: Painful Gums Last Admin: 08/26/24 13:38 Dose: 10 ml Lorazepam (Lorazepam 0.5 Mg Tablet) 0.5 mg PO BID [facility] Last Admin: 09/26/24 08:31 Dose: 0.5 mg Magnesium Hydroxide (Milk Of Magnesia 30 Ml Oral.Susp) 30 ml PO DAILY PRN PRN Reason: Constipation Memantine (Memantine Hcl 5 Mg Tablet) 5 mg PO DAILY [facility] Last Admin: 09/26/24 08:31 Dose: 5 mg Olanzapine (Olanzapine Odt 10 Mg Tab.Rapdis) 5 mg TRANSLINGU Q6H PRN PRN Reason: Agitation Pravastatin Sodium (Pravastatin Sodium 40 Mg Tablet) 40 mg PO BEDTIME [facility] Last Admin: 09/25/24 20:51 Dose: 40 mg Vitamin D (Cholecalciferol (Vitamin D3) 25 Mcg Tablet) 50 mcg PO DAILY [facility] Last Admin: 09/26/24 08:31 Dose: 50 mcg Allergies Allergies Allergy/AdvReac Type Severity Reaction Status Date / Time meperidine [From Demerol] AdvReac Intermediate Rash Verified 08/23/24 19:34 morphine AdvReac Intermediate Rash Verified 08/23/24 19:35 Sulfa (Sulfonamide AdvReac Intermediate Rash Verified 08/23/24 19:36 Antibiotics) Assessment & Plan Assessment & Plan (1) Schizoaffective disorder: Status: Acute Code(s): F25.9 - Schizoaffective disorder, unspecified Plan Ms. Thomas is a 69 year-old woman with hx of Bipolar Disorder, she currently presents with several symptoms suggestive of negative symptoms seem usually in schizoaffective disorder including constricted affect, abulia (some acknowledgment that she needed to initiate certain activities like going to dentist but still not doing so for unclear reasons). No overt paranoid delusions, her delayed response may be signs of thought blocking and underlying psychosis. She is in agreement to receive treatment and complete work up to also assess her memory and cognition. We discussed restarting abilify, which was started while she was in the ED- will titrate dose. 08/[address] shows atrophy. pending MOCA/ACL. continue abilify but may increase and add low dose ativan. 08/26 will increased abilify to 15mg po daily. will add low dose ativan- wonder if it helps with delayed response, and some staring. 08/27: T102, URI Sx. influenza A POS. UA NEG. tamiflu, droplet precautions. increase HS ativan to 1 mg. otherwise continue prior mgmt. 08/28: no requests or complaints, appears drained, resting in bed. continue current mgmt. 08/29- continue to present febrile, this AM 101.F, O2sat on RA 94%, limited oral intake yesterday, ordered labs to monitor dehydration. pt after encouragement, drinking cup of orange juice, some water, bananas and saltine crackers. pending labs. 08/30 continue tx. afebrile today for most of the day. O2sat on RA 96%. less cough, no signs of respiratory distress. taking medications. 08/31 family meeting- discussed filing for guardianship, she is currently taking medications. no longer symptomatic in terms of Influenza. afebrile, no respiratory distress. 09/01 continue tx. will complete guardianship papers 09/02 guardianship filed. continue tx. started on namenda target abulia. abilify increased to 20mg po daily. 09/03 continue tx. 09/04 continue tx. 09/05 continue tx. 09/06 continue tx. 09/07 continue tx. 09/08: stable. no questions or complaints. continue current mgmt. 09/09 will increase abilify to 30mg po daily. 09/10/2024 Question if increase Abilify is worsening blunting and bulimia 09/11/2024 Continue Abilify might consider Latuda Provigil unclear what patient's baseline is 09/12 continue tx. 09/13 continue tx. 09/14 continue tx. 09/15 continue tx. 09/16 continue tx. VS stable. 09/17 Patient presents as suspicious and guarded with machine sign writer. Patient kind of walking out of her room but at the side of machine sign writer, backs up into her room, then walks out a little then backs up a little... She is vague with machine sign writer but denies any psychiatric symptoms. -taking meds 09/18 paranoid, guarded; says yes to dysuria. Started on Ceftin for UTI 09/20 keep same treatment 09/22 keep same treatment 09/23 keep same treatment 09/24: continue current mgmt. stable, safe. no behavioral concerns. 09/25: no change from yesterday. 09/26 continue tx. awaiting guardianship Reason for continued inpatient stay Substantial Risk for: inability to function Time Spent With Patient Time: Total time managing care of this patient today ____ minutes.
[2024-09-26 20:00] VITALS: BP 120/58; PULSE 77; RESP 16; TEMP 36.7; O2SAT 95
[2024-09-27] MEDS: ARIPiprazole 30 MG TABLET PO (08:50)
--- NOTE | 2024-09-27 09:22 | P.PNPSI_ITS ---
Subjective Subjective Date of Service: 09/27/24 Reason For Visit: bipolar 1 disorder current or most recent epi Subjective Notes: Conditional Voluntary Interim History: Pt slept through the night. She has been more visible, minimally social which is baseline. She is out for meals. She is taking medications as prescribed. no overt psychosis or delusions. VS stable, on lower side BP 119/64, HR 96. POverty of thought, not engaging in any meaningful way. passively agreeing to receive treatment and being here. Review of Systems Review of Systems Pt denies chest pain. No abdominal pain. No diarrhea or constipation. Mental Status Exam Mental Status Exam Narrative: Appearance: constricted affect, in NAD, malnourished, very poor dental hygiene (unbothered by it). Behavior: guarded, cautious Psychomotor: some retardation Speech: mostly clear, less latency, minimally spontaneous TP: [place] TC: no questions or complaints Mood: good Affect:constricted, anxious SI: Denied HI: Denies VH/AH: denies but may be internally preoccupied Delusions: no overt delusional content noted or reported Insight/judgment: impaired . Diagnostics Vital Signs (24Hr): Vital Signs - 24 hr 09/26/24 20:00 Temperature 98.1 F Pulse Rate 77 Respiratory Rate 16 Blood Pressure 120/58 L Pulse Oximetry 95 Oxygen Delivery Method Room Air BMI result Body Mass Index 20.5 Labs 08/27/24 10:00 08/29/24 17:32 Imaging Radiology Impressions: ITS Impressions Head CT 08/25/24 11:33 IMPRESSION: No acute intracranial abnormality. Electronically signed by: Cj Colunga MD 08/25/2024 12:12 PM [facility] Medications Medications Current Medications Acetaminophen (Acetaminophen 325 Mg Tablet) 650 mg PO Q6H PRN PRN Reason: Headache/Pain, Scale 1-10 Last Admin: 08/30/24 20:35 Dose: 650 mg Al Hydroxide/Mg Hydroxide (Magnesium Hydrox/Alum Hydrox 30 Ml Oral.Susp) 30 ml PO Q6H PRN PRN Reason: Heartburn/Nausea Aripiprazole (Aripiprazole 30 Mg Tablet) 30 mg PO DAILY [facility] Last Admin: 09/27/24 08:50 Dose: 30 mg Benzocaine (Throat Lozenge, Medicated Lozenge) 1 lozenge MUCOUS MEM Q1H PRN PRN Reason: Sore Throat Last Admin: 09/01/24 06:09 Dose: 1 lozenge Cefuroxime Axetil (Cefuroxime Axetil 250 Mg Tablet) 250 mg PO BID [facility] Last Admin: 09/27/24 08:49 Dose: 250 mg Guaifenesin/Dextromethorphan (Guaifenesin Dm 200/20/10 Ml 10 Ml Syrup) 10 ml PO Q4H PRN PRN Reason: Cough Last Admin: 08/30/24 05:47 Dose: 10 ml Levothyroxine Sodium (Levothyroxine Sodium 75 Mcg Tablet) 75 mcg PO DAILY@0630 [facility] Last Admin: 09/27/24 06:00 Dose: 75 mcg Lidocaine/Diphenhydr/Alum/Mg/Simeth (Mag&Al/Sim/Diphenhyd/Lidocaine 10 Ml Oral.Susp) 10 ml PO Q6H PRN; Protocol PRN Reason: Painful Gums Last Admin: 08/26/24 13:38 Dose: 10 ml Lorazepam (Lorazepam 0.5 Mg Tablet) 0.5 mg PO BID [facility] Last Admin: 09/27/24 08:50 Dose: 0.5 mg Magnesium Hydroxide (Milk Of Magnesia 30 Ml Oral.Susp) 30 ml PO DAILY PRN PRN Reason: Constipation Memantine (Memantine Hcl 5 Mg Tablet) 5 mg PO DAILY [facility] Last Admin: 09/27/24 08:50 Dose: 5 mg Olanzapine (Olanzapine Odt 10 Mg Tab.Rapdis) 5 mg TRANSLINGU Q6H PRN PRN Reason: Agitation Pravastatin Sodium (Pravastatin Sodium 40 Mg Tablet) 40 mg PO BEDTIME [facility] Last Admin: 09/26/24 20:38 Dose: 40 mg Vitamin D (Cholecalciferol (Vitamin D3) 25 Mcg Tablet) 50 mcg PO DAILY [facility] Last Admin: 09/27/24 08:50 Dose: 50 mcg Allergies Allergies Allergy/AdvReac Type Severity Reaction Status Date / Time meperidine [From Demerol] AdvReac Intermediate Rash Verified 08/23/24 19:34 morphine AdvReac Intermediate Rash Verified 08/23/24 19:35 Sulfa (Sulfonamide AdvReac Intermediate Rash Verified 08/23/24 19:36 Antibiotics) Assessment & Plan Assessment & Plan (1) Schizoaffective disorder: Status: Acute Code(s): F25.9 - Schizoaffective disorder, unspecified Plan Ms. Thomas is a 69 year-old woman with hx of Bipolar Disorder, she currently presents with several symptoms suggestive of negative symptoms seem usually in schizoaffective disorder including constricted affect, abulia (some acknowledgment that she needed to initiate certain activities like going to dentist but still not doing so for unclear reasons). No overt paranoid delusions, her delayed response may be signs of thought blocking and underlying psychosis. She is in agreement to receive treatment and complete work up to also assess her memory and cognition. We discussed restarting abilify, which was started while she was in the ED- will titrate dose. 08/[address] shows atrophy. pending MOCA/ACL. continue abilify but may increase and add low dose ativan. 08/26 will increased abilify to 15mg po daily. will add low dose ativan- wonder if it helps with delayed response, and some staring. 08/27: T102, URI Sx. influenza A POS. UA NEG. tamiflu, droplet precautions. increase HS ativan to 1 mg. otherwise continue prior mgmt. 08/28: no requests or complaints, appears drained, resting in bed. continue current mgmt. 08/29- continue to present febrile, this AM 101.F, O2sat on RA 94%, limited oral intake yesterday, ordered labs to monitor dehydration. pt after encouragement, drinking cup of orange juice, some water, bananas and saltine crackers. pending labs. 08/30 continue tx. afebrile today for most of the day. O2sat on RA 96%. less cough, no signs of respiratory distress. taking medications. 08/31 family meeting- discussed filing for guardianship, she is currently taking medications. no longer symptomatic in terms of Influenza. afebrile, no respiratory distress. 09/01 continue tx. will complete guardianship papers 09/02 guardianship filed. continue tx. started on namenda target abulia. abilify increased to 20mg po daily. 09/03 continue tx. 09/04 continue tx. 09/05 continue tx. 09/06 continue tx. 09/07 continue tx. 09/08: stable. no questions or complaints. continue current mgmt. 09/09 will increase abilify to 30mg po daily. 09/10/2024 Question if increase Abilify is worsening blunting and bulimia 09/11/2024 Continue Abilify might consider Latuda Provigil unclear what patient's baseline is 09/12 continue tx. 09/13 continue tx. 09/14 continue tx. 09/15 continue tx. 09/16 continue tx. VS stable. 09/17 Patient presents as suspicious and guarded with bid writer. Patient kind of walking out of her room but at the side of bid writer, backs up into her room, then walks out a little then backs up a little... She is vague with bid writer but denies any psychiatric symptoms. -taking meds 09/18 paranoid, guarded; says yes to dysuria. Started on Ceftin for UTI 09/20 keep same treatment 09/22 keep same treatment 09/23 keep same treatment 09/24: continue current mgmt. stable, safe. no behavioral concerns. 09/25: no change from yesterday. 09/26 continue tx. awaiting guardianship 09/27 continue tx. Reason for continued inpatient stay Substantial Risk for: inability to function Time Spent With Patient Time: Total time managing care of this patient today ____ minutes.
[2024-09-27 20:00] VITALS: BP 122/56; PULSE 91; RESP 18; TEMP 36.6; O2SAT 96
[2024-09-28 08:00] VITALS: BP 112/50; PULSE 91; RESP 18; TEMP 36.8; O2SAT 98
[2024-09-28] MEDS: ARIPiprazole 30 MG TABLET PO (08:47)
--- NOTE | 2024-09-28 13:15 | P.PNPSI_ITS ---
Subjective Subjective Date of Service: 09/28/24 Reason For Visit: bipolar 1 disorder current or most recent epi Subjective Notes: Conditional Voluntary Healthcare Proxy: Yes Interim History: Pt slept through the night. She has been more visible, minimally social which is baseline. She is out for meals. She is taking medications as prescribed. no overt psychosis or delusions. VS stable, on lower side BP 119/64, HR 96. POverty of thought, not engaging in any meaningful way. passively agreeing to receive treatment and being here. Review of Systems Review of Systems Pt denies chest pain. No abdominal pain. No diarrhea or constipation. Mental Status Exam Mental Status Exam Narrative: Appearance: constricted affect, in NAD, malnourished, very poor dental hygiene (unbothered by it). Behavior: guarded, cautious Psychomotor: some retardation Speech: mostly clear, less latency, minimally spontaneous TP: [place] TC: no questions or complaints Mood: good Affect:constricted, anxious SI: Denied HI: Denies VH/AH: denies but may be internally preoccupied Delusions: no overt delusional content noted or reported Insight/judgment: impaired . Diagnostics Vital Signs (24Hr): Vital Signs - 24 hr 09/27/24 20:00 09/28/24 08:00 Temperature 98 F 98.2 F Pulse Rate 91 91 Respiratory Rate 18 18 Blood Pressure 122/56 L 112/50 L Pulse Oximetry 96 98 Oxygen Delivery Method Room Air Room Air BMI result Body Mass Index 20.5 Labs 08/27/24 10:00 08/29/24 17:32 Imaging Radiology Impressions: ITS Impressions Head CT 08/25/24 11:33 IMPRESSION: No acute intracranial abnormality. Electronically signed by: Cj Colunga MD 08/25/2024 12:12 PM [facility] Medications Medications Current Medications Acetaminophen (Acetaminophen 325 Mg Tablet) 650 mg PO Q6H PRN PRN Reason: Headache/Pain, Scale 1-10 Last Admin: 08/30/24 20:35 Dose: 650 mg Al Hydroxide/Mg Hydroxide (Magnesium Hydrox/Alum Hydrox 30 Ml Oral.Susp) 30 ml PO Q6H PRN PRN Reason: Heartburn/Nausea Aripiprazole (Aripiprazole 30 Mg Tablet) 30 mg PO DAILY [facility] Last Admin: 09/28/24 08:47 Dose: 30 mg Benzocaine (Throat Lozenge, Medicated Lozenge) 1 lozenge MUCOUS MEM Q1H PRN PRN Reason: Sore Throat Last Admin: 09/01/24 06:09 Dose: 1 lozenge Cefuroxime Axetil (Cefuroxime Axetil 250 Mg Tablet) 250 mg PO BID [facility] Last Admin: 09/28/24 08:47 Dose: 250 mg Guaifenesin/Dextromethorphan (Guaifenesin Dm 200/20/10 Ml 10 Ml Syrup) 10 ml PO Q4H PRN PRN Reason: Cough Last Admin: 08/30/24 05:47 Dose: 10 ml Levothyroxine Sodium (Levothyroxine Sodium 75 Mcg Tablet) 75 mcg PO DAILY@0630 [facility] Last Admin: 09/28/24 05:51 Dose: 75 mcg Lidocaine/Diphenhydr/Alum/Mg/Simeth (Mag&Al/Sim/Diphenhyd/Lidocaine 10 Ml Oral.Susp) 10 ml PO Q6H PRN; Protocol PRN Reason: Painful Gums Last Admin: 08/26/24 13:38 Dose: 10 ml Lorazepam (Lorazepam 0.5 Mg Tablet) 0.5 mg PO BID [facility] Last Admin: 09/28/24 08:47 Dose: 0.5 mg Magnesium Hydroxide (Milk Of Magnesia 30 Ml Oral.Susp) 30 ml PO DAILY PRN PRN Reason: Constipation Memantine (Memantine Hcl 5 Mg Tablet) 5 mg PO DAILY [facility] Last Admin: 09/28/24 08:47 Dose: 5 mg Olanzapine (Olanzapine Odt 10 Mg Tab.Rapdis) 5 mg TRANSLINGU Q6H PRN PRN Reason: Agitation Pravastatin Sodium (Pravastatin Sodium 40 Mg Tablet) 40 mg PO BEDTIME [facility] Last Admin: 09/27/24 20:45 Dose: 40 mg Vitamin D (Cholecalciferol (Vitamin D3) 25 Mcg Tablet) 50 mcg PO DAILY [facility] Last Admin: 09/28/24 08:47 Dose: 50 mcg Allergies Allergies Allergy/AdvReac Type Severity Reaction Status Date / Time meperidine [From Demerol] AdvReac Intermediate Rash Verified 08/23/24 19:34 morphine AdvReac Intermediate Rash Verified 08/23/24 19:35 Sulfa (Sulfonamide AdvReac Intermediate Rash Verified 08/23/24 19:36 Antibiotics) Assessment & Plan Assessment & Plan (1) Schizoaffective disorder: Status: Acute Code(s): F25.9 - Schizoaffective disorder, unspecified Plan Ms. Thomas is a 69 year-old woman with hx of Bipolar Disorder, she currently presents with several symptoms suggestive of negative symptoms seem usually in schizoaffective disorder including constricted affect, abulia (some acknowledgment that she needed to initiate certain activities like going to dentist but still not doing so for unclear reasons). No overt paranoid delusions, her delayed response may be signs of thought blocking and underlying psychosis. She is in agreement to receive treatment and complete work up to also assess her memory and cognition. We discussed restarting abilify, which was started while she was in the ED- will titrate dose. 08/[address] shows atrophy. pending MOCA/ACL. continue abilify but may increase and add low dose ativan. 08/26 will increased abilify to 15mg po daily. will add low dose ativan- wonder if it helps with delayed response, and some staring. 08/27: T102, URI Sx. influenza A POS. UA NEG. tamiflu, droplet precautions. increase HS ativan to 1 mg. otherwise continue prior mgmt. 08/28: no requests or complaints, appears drained, resting in bed. continue current mgmt. 08/29- continue to present febrile, this AM 101.F, O2sat on RA 94%, limited oral intake yesterday, ordered labs to monitor dehydration. pt after encouragement, drinking cup of orange juice, some water, bananas and saltine crackers. pending labs. 08/30 continue tx. afebrile today for most of the day. O2sat on RA 96%. less cough, no signs of respiratory distress. taking medications. 08/31 family meeting- discussed filing for guardianship, she is currently taking medications. no longer symptomatic in terms of Influenza. afebrile, no respiratory distress. 09/01 continue tx. will complete guardianship papers 09/02 guardianship filed. continue tx. started on namenda target abulia. abilify increased to 20mg po daily. 09/03 continue tx. 09/04 continue tx. 09/05 continue tx. 09/06 continue tx. 09/07 continue tx. 3/13: stable. no questions or complaints. continue current mgmt. 09/09 will increase abilify to 30mg po daily. 09/10/2024 Question if increase Abilify is worsening blunting and bulimia 09/11/2024 Continue Abilify might consider Latuda Provigil unclear what patient's baseline is 09/12 continue tx. 09/13 continue tx. 09/14 continue tx. 09/15 continue tx. 09/16 continue tx. VS stable. 09/17 Patient presents as suspicious and guarded with keno writer/runner. Patient kind of walking out of her room but at the side of keno writer/runner, backs up into her room, then walks out a little then backs up a little... She is vague with keno writer/runner but denies any psychiatric symptoms. -taking meds 09/18 paranoid, guarded; says yes to dysuria. Started on Ceftin for UTI 09/20 keep same treatment 09/22 keep same treatment 09/23 keep same treatment 09/24: continue current mgmt. stable, safe. no behavioral concerns. 09/25: no change from yesterday. 09/26 continue tx. awaiting guardianship 09/27 continue tx. 09/28 continue tx. Reason for continued inpatient stay Substantial Risk for: inability to function Time Spent With Patient Time: Total time managing care of this patient today ____ minutes.
[2024-09-28 20:00] VITALS: BP 111/58; PULSE 78; RESP 16; TEMP 36.4; O2SAT 97
[2024-09-29 07:55] VITALS: BP 110/73; PULSE 89; RESP 18; TEMP 36.3; O2SAT 98
[2024-09-29] MEDS: ARIPiprazole 30 MG TABLET PO (08:22)
[2024-09-29 10:40] VITALS: BMI 20.4
--- NOTE | 2024-09-29 10:40 | HO.PSYCHPN ---
Subjective Subjective Date of Service: 09/28/24 Reason For Visit: bipolar 1 disorder current or most recent epi Subjective Notes: Conditional Voluntary Interim History: Pt slept through the night. She has been more visible, minimally social which is baseline. She is out for meals. She is taking medications as prescribed. no overt psychosis or delusions. POverty of thought, not engaging in any meaningful way. passively agreeing to receive treatment and being here. Review of Systems Review of Systems Pt denies chest pain. No abdominal pain. No diarrhea or constipation. Mental Status Exam Mental Status Exam Narrative: Appearance: constricted affect, in NAD, malnourished, very poor dental hygiene (unbothered by it). Behavior: guarded, cautious Psychomotor: some retardation Speech: mostly clear, less latency, minimally spontaneous TP: [place] TC: no questions or complaints Mood: good Affect:constricted, anxious SI: Denied HI: Denies VH/AH: denies but may be internally preoccupied Delusions: no overt delusional content noted or reported Insight/judgment: impaired . Diagnostics Vital Signs (24Hr): Vital Signs - 24 hr 09/28/24 20:00 09/29/24 07:55 Temperature 97.6 F 97.3 F Pulse Rate 78 89 Respiratory Rate 16 18 Blood Pressure 111/58 L 110/73 Pulse Oximetry 97 98 Oxygen Delivery Method Room Air Room Air BMI result Body Mass Index 20.5 Labs 08/27/24 10:00 08/29/24 17:32 Imaging Radiology Impressions: ITS Impressions Head CT 08/25/24 11:33 IMPRESSION: No acute intracranial abnormality. Electronically signed by: Cj Colunga MD 08/25/2024 12:12 [place] [facility] Medications Current Medications Acetaminophen (Acetaminophen 325 Mg Tablet) 650 mg PO Q6H PRN PRN Reason: Headache/Pain, Scale 1-10 Last Admin: 08/30/24 20:35 Dose: 650 mg Al Hydroxide/Mg Hydroxide (Magnesium Hydrox/Alum Hydrox 30 Ml Oral.Susp) 30 ml PO Q6H PRN PRN Reason: Heartburn/Nausea Aripiprazole (Aripiprazole 30 Mg Tablet) 30 mg PO DAILY [facility] Last Admin: 09/29/24 08:22 Dose: 30 mg Benzocaine (Throat Lozenge, Medicated Lozenge) 1 lozenge MUCOUS MEM Q1H PRN PRN Reason: Sore Throat Last Admin: 09/01/24 06:09 Dose: 1 lozenge Guaifenesin/Dextromethorphan (Guaifenesin Dm 200/20/10 Ml 10 Ml Syrup) 10 ml PO Q4H PRN PRN Reason: Cough Last Admin: 08/30/24 05:47 Dose: 10 ml Levothyroxine Sodium (Levothyroxine Sodium 75 Mcg Tablet) 75 mcg PO DAILY@0630 [facility] Last Admin: 09/29/24 06:38 Dose: 75 mcg Lidocaine/Diphenhydr/Alum/Mg/Simeth (Mag&Al/Sim/Diphenhyd/Lidocaine 10 Ml Oral.Susp) 10 ml PO Q6H PRN; Protocol PRN Reason: Painful Gums Last Admin: 08/26/24 13:38 Dose: 10 ml Lorazepam (Lorazepam 0.5 Mg Tablet) 0.5 mg PO BID [facility] Last Admin: 09/29/24 08:22 Dose: 0.5 mg Magnesium Hydroxide (Milk Of Magnesia 30 Ml Oral.Susp) 30 ml PO DAILY PRN PRN Reason: Constipation Memantine (Memantine Hcl 5 Mg Tablet) 5 mg PO DAILY [facility] Last Admin: 09/29/24 08:22 Dose: 5 mg Olanzapine (Olanzapine Odt 10 Mg Tab.Rapdis) 5 mg TRANSLINGU Q6H PRN PRN Reason: Agitation Pravastatin Sodium (Pravastatin Sodium 40 Mg Tablet) 40 mg PO BEDTIME [facility] Last Admin: 09/28/24 20:54 Dose: 40 mg Vitamin D (Cholecalciferol (Vitamin D3) 25 Mcg Tablet) 50 mcg PO DAILY [facility] Last Admin: 09/29/24 08:22 Dose: 50 mcg Allergies Allergies Allergy/AdvReac Type Severity Reaction Status Date / Time meperidine [From Demerol] AdvReac Intermediate Rash Verified 08/23/24 19:34 morphine AdvReac Intermediate Rash Verified 08/23/24 19:35 Sulfa (Sulfonamide AdvReac Intermediate Rash Verified 08/23/24 19:36 Antibiotics) Assessment & Plan Assessment & Plan (1) Schizoaffective disorder: Status: Acute Code(s): F25.9 - Schizoaffective disorder, unspecified Plan Ms. Thomas is a 69 year-old woman with hx of Bipolar Disorder, she currently presents with several symptoms suggestive of negative symptoms seem usually in schizoaffective disorder including constricted affect, abulia (some acknowledgment that she needed to initiate certain activities like going to dentist but still not doing so for unclear reasons). No overt paranoid delusions, her delayed response may be signs of thought blocking and underlying psychosis. She is in agreement to receive treatment and complete work up to also assess her memory and cognition. We discussed restarting abilify, which was started while she was in the ED- will titrate dose. 08/[address] shows atrophy. pending MOCA/ACL. continue abilify but may increase and add low dose ativan. 08/26 will increased abilify to 15mg po daily. will add low dose ativan- wonder if it helps with delayed response, and some staring. 08/27: T102, URI Sx. influenza A POS. UA NEG. tamiflu, droplet precautions. increase HS ativan to 1 mg. otherwise continue prior mgmt. 08/28: no requests or complaints, appears drained, resting in bed. continue current mgmt. 08/29- continue to present febrile, this AM 101.F, O2sat on RA 94%, limited oral intake yesterday, ordered labs to monitor dehydration. pt after encouragement, drinking cup of orange juice, some water, bananas and saltine crackers. pending labs. 08/30 continue tx. afebrile today for most of the day. O2sat on RA 96%. less cough, no signs of respiratory distress. taking medications. 08/31 family meeting- discussed filing for guardianship, she is currently taking medications. no longer symptomatic in terms of Influenza. afebrile, no respiratory distress. 09/01 continue tx. will complete guardianship papers 09/02 guardianship filed. continue tx. started on namenda target abulia. abilify increased to 20mg po daily. 09/03 continue tx. 09/04 continue tx. 09/05 continue tx. 09/06 continue tx. 09/07 continue tx. 09/08: stable. no questions or complaints. continue current mgmt. 09/09 will increase abilify to 30mg po daily. 09/10/2024 Question if increase Abilify is worsening blunting and bulimia 09/11/2024 Continue Abilify might consider Latuda Provigil unclear what patient's baseline is 09/12 continue tx. 09/13 continue tx. 09/14 continue tx. 09/15 continue tx. 09/16 continue tx. VS stable. 09/17 Patient presents as suspicious and guarded with senior mortgage underwriter. Patient kind of walking out of her room but at the side of senior mortgage underwriter, backs up into her room, then walks out a little then backs up a little... She is vague with senior mortgage underwriter but denies any psychiatric symptoms. -taking meds 09/18 paranoid, guarded; says yes to dysuria. Started on Ceftin for UTI 09/20 keep same treatment 09/22 keep same treatment 09/23 keep same treatment 09/24: continue current mgmt. stable, safe. no behavioral concerns. 09/25: no change from yesterday. 09/26 continue tx. awaiting guardianship 09/27 continue tx. 09/28 continue tx. 09/29 continue tx. Reason for continued inpatient stay Substantial Risk for: inability to function Time Spent With Patient Time: Total time managing care of this patient today ____ minutes.
[2024-09-29 20:00] VITALS: BP 109/56; PULSE 70; RESP 16; TEMP 36.1; O2SAT 98
[2024-09-30 07:54] VITALS: BP 135/70; PULSE 98; RESP 16; TEMP 36.1; O2SAT 98
[2024-09-30] MEDS: ARIPiprazole 30 MG TABLET PO (08:29)
--- NOTE | 2024-09-30 09:03 | P.PNPSI_ITS ---
Subjective Subjective Date of Service: 09/30/24 Reason For Visit: bipolar 1 disorder current or most recent epi Interim History: Pt slept through the night. She has been more visible, minimally social which is baseline. She is out for meals. She is taking medications as prescribed. no overt psychosis or delusions. POverty of thought, not engaging in any meaningful way. passively agreeing to receive treatment and being here. Review of Systems Review of Systems Pt denies chest pain. No abdominal pain. No diarrhea or constipation. Mental Status Exam Mental Status Exam Narrative: Appearance: constricted affect, in NAD, malnourished, very poor dental hygiene (unbothered by it). Behavior: guarded, cautious Psychomotor: some retardation Speech: mostly clear, less latency, minimally spontaneous TP: [place] TC: no questions or complaints Mood: good Affect:constricted, anxious SI: Denied HI: Denies VH/AH: denies but may be internally preoccupied Delusions: no overt delusional content noted or reported Insight/judgment: impaired . Diagnostics Vital Signs (24Hr): Vital Signs - 24 hr 09/29/24 20:00 09/30/24 07:54 Temperature 97 F 97.0 F Pulse Rate 70 98 Respiratory Rate 16 16 Blood Pressure 109/56 L 135/70 Pulse Oximetry 98 98 Oxygen Delivery Method Room Air Room Air BMI result Body Mass Index 20.4 Labs 08/27/24 10:00 08/29/24 17:32 Imaging Radiology Impressions: ITS Impressions Head CT 08/25/24 11:33 IMPRESSION: No acute intracranial abnormality. Electronically signed by: Cj Colunga MD 08/25/2024 12:12 PM [facility] [place] Medications Medications Current Medications Acetaminophen (Acetaminophen 325 Mg Tablet) 650 mg PO Q6H PRN PRN Reason: Headache/Pain, Scale 1-10 Last Admin: 08/30/24 20:35 Dose: 650 mg Al Hydroxide/Mg Hydroxide (Magnesium Hydrox/Alum Hydrox 30 Ml Oral.Susp) 30 ml PO Q6H PRN PRN Reason: Heartburn/Nausea Aripiprazole (Aripiprazole 30 Mg Tablet) 30 mg PO DAILY [facility] Last Admin: 09/30/24 08:29 Dose: 30 mg Benzocaine (Throat Lozenge, Medicated Lozenge) 1 lozenge MUCOUS MEM Q1H PRN PRN Reason: Sore Throat Last Admin: 09/01/24 06:09 Dose: 1 lozenge Guaifenesin/Dextromethorphan (Guaifenesin Dm 200/20/10 Ml 10 Ml Syrup) 10 ml PO Q4H PRN PRN Reason: Cough Last Admin: 08/30/24 05:47 Dose: 10 ml Levothyroxine Sodium (Levothyroxine Sodium 75 Mcg Tablet) 75 mcg PO DAILY@0630 [facility] Last Admin: 09/30/24 06:22 Dose: 75 mcg Lidocaine/Diphenhydr/Alum/Mg/Simeth (Mag&Al/Sim/Diphenhyd/Lidocaine 10 Ml Oral.Susp) 10 ml PO Q6H PRN; Protocol PRN Reason: Painful Gums Last Admin: 08/26/24 13:38 Dose: 10 ml Lorazepam (Lorazepam 0.5 Mg Tablet) 0.5 mg PO BID [facility] Last Admin: 09/30/24 08:29 Dose: 0.5 mg Magnesium Hydroxide (Milk Of Magnesia 30 Ml Oral.Susp) 30 ml PO DAILY PRN PRN Reason: Constipation Memantine (Memantine Hcl 5 Mg Tablet) 5 mg PO DAILY [facility] Last Admin: 09/30/24 08:29 Dose: 5 mg Olanzapine (Olanzapine Odt 10 Mg Tab.Rapdis) 5 mg TRANSLINGU Q6H PRN PRN Reason: Agitation Pravastatin Sodium (Pravastatin Sodium 40 Mg Tablet) 40 mg PO BEDTIME [facility] Last Admin: 09/29/24 20:44 Dose: 40 mg Vitamin D (Cholecalciferol (Vitamin D3) 25 Mcg Tablet) 50 mcg PO DAILY [facility] Last Admin: 09/30/24 08:29 Dose: 50 mcg Allergies Allergies Allergy/AdvReac Type Severity Reaction Status Date / Time meperidine [From Demerol] AdvReac Intermediate Rash Verified 08/23/24 19:34 morphine AdvReac Intermediate Rash Verified 08/23/24 19:35 Sulfa (Sulfonamide AdvReac Intermediate Rash Verified 08/23/24 19:36 Antibiotics) Assessment & Plan Assessment & Plan (1) Schizoaffective disorder: Status: Acute Code(s): F25.9 - Schizoaffective disorder, unspecified Plan Ms. Thomas is a 69 year-old woman with hx of Bipolar Disorder, she currently presents with several symptoms suggestive of negative symptoms seem usually in schizoaffective disorder including constricted affect, abulia (some acknowledgment that she needed to initiate certain activities like going to dentist but still not doing so for unclear reasons). No overt paranoid delusions, her delayed response may be signs of thought blocking and underlying psychosis. She is in agreement to receive treatment and complete work up to also assess her memory and cognition. We discussed restarting abilify, which was started while she was in the ED- will titrate dose. 08/[address] shows atrophy. pending MOCA/ACL. continue abilify but may increase and add low dose ativan. 08/26 will increased abilify to 15mg po daily. will add low dose ativan- wonder if it helps with delayed response, and some staring. 08/27: T102, URI Sx. influenza A POS. UA NEG. tamiflu, droplet precautions. increase HS ativan to 1 mg. otherwise continue prior mgmt. 08/28: no requests or complaints, appears drained, resting in bed. continue current mgmt. 08/29- continue to present febrile, this AM 101.F, O2sat on RA 94%, limited oral intake yesterday, ordered labs to monitor dehydration. pt after encouragement, drinking cup of orange juice, some water, bananas and saltine crackers. pending labs. 08/30 continue tx. afebrile today for most of the day. O2sat on RA 96%. less cough, no signs of respiratory distress. taking medications. 08/31 family meeting- discussed filing for guardianship, she is currently taking medications. no longer symptomatic in terms of Influenza. afebrile, no respiratory distress. 09/01 continue tx. will complete guardianship papers 09/02 guardianship filed. continue tx. started on namenda target abulia. abilify increased to 20mg po daily. 09/03 continue tx. 09/04 continue tx. 09/05 continue tx. 09/06 continue tx. 09/07 continue tx. 09/08: stable. no questions or complaints. continue current mgmt. 09/09 will increase abilify to 30mg po daily. 09/10/2024 Question if increase Abilify is worsening blunting and bulimia 09/11/2024 Continue Abilify might consider Latuda Provigil unclear what patient's baseline is 09/12 continue tx. 09/13 continue tx. 09/14 continue tx. 09/15 continue tx. 09/16 continue tx. VS stable. 09/17 Patient presents as suspicious and guarded with health science writer. Patient kind of walking out of her room but at the side of health science writer, backs up into her room, then walks out a little then backs up a little... She is vague with health science writer but denies any psychiatric symptoms. -taking meds 09/18 paranoid, guarded; says yes to dysuria. Started on Ceftin for UTI 09/20 keep same treatment 09/22 keep same treatment 09/23 keep same treatment 09/24: continue current mgmt. stable, safe. no behavioral concerns. 09/25: no change from yesterday. 09/26 continue tx. awaiting guardianship 09/27 continue tx. 09/28 continue tx. 09/29 continue tx. 09/30 continue tx. Reason for continued inpatient stay Substantial Risk for: inability to function Time Spent With Patient Time: Total time managing care of this patient today ____ minutes.
[2024-09-30 20:00] VITALS: BP 131/61; PULSE 85; RESP 18; TEMP 36.5; O2SAT 95
[2024-10-01 09:42] VITALS: BP 113/56; PULSE 89; RESP 18; TEMP 36.4; O2SAT 98
[2024-10-01] MEDS: ARIPiprazole 30 MG TABLET PO (09:43)
--- NOTE | 2024-10-01 18:03 | HO.PSYCHPN ---
Subjective Subjective Date of Service: 10/01/24 Reason For Visit: bipolar 1 disorder current or most recent epi Interim History: Met with patient; discussed with team Patient says she good and that she has no concerns. Difficult with which to engage only giving one-word answers. Staff reports no change and that she denies all psychiatric symptoms Mental Status Exam Mental Status Exam Narrative: Appearance: constricted affect, in NAD, malnourished, very poor dental hygiene (unbothered by it). Behavior: guarded, cautious Psychomotor: some retardation Speech: mostly clear, less latency, minimally spontaneous TP: [place] TC: no questions or complaints Mood: good Affect:constricted, anxious SI: Denied HI: Denies VH/AH: denies but may be internally preoccupied Delusions: no overt delusional content noted or reported Insight/judgment: impaired . Diagnostics Vital Signs (24Hr): Vital Signs - 24 hr 09/30/24 20:00 10/01/24 09:42 Temperature 97.7 F 97.5 F Pulse Rate 85 89 Respiratory Rate 18 18 Blood Pressure 131/61 113/56 L Pulse Oximetry 95 98 Oxygen Delivery Method Room Air Nasal Cannula BMI result Body Mass Index 20.4 Labs 08/27/24 10:00 08/29/24 17:32 Imaging Radiology Impressions: ITS Impressions Head CT 08/25/24 11:33 IMPRESSION: No acute intracranial abnormality. Electronically signed by: Cj Colunga MD 08/25/2024 12:12 PM [facility] Medications Medications Current Medications Acetaminophen (Acetaminophen 325 Mg Tablet) 650 mg PO Q6H PRN PRN Reason: Headache/Pain, Scale 1-10 Last Admin: 08/30/24 20:35 Dose: 650 mg Al Hydroxide/Mg Hydroxide (Magnesium Hydrox/Alum Hydrox 30 Ml Oral.Susp) 30 ml PO Q6H PRN PRN Reason: Heartburn/Nausea Aripiprazole (Aripiprazole 30 Mg Tablet) 30 mg PO DAILY [facility] Last Admin: 10/01/24 09:43 Dose: 30 mg Benzocaine (Throat Lozenge, Medicated Lozenge) 1 lozenge MUCOUS MEM Q1H PRN PRN Reason: Sore Throat Last Admin: 09/01/24 06:09 Dose: 1 lozenge Guaifenesin/Dextromethorphan (Guaifenesin Dm 200/20/10 Ml 10 Ml Syrup) 10 ml PO Q4H PRN PRN Reason: Cough Last Admin: 08/30/24 05:47 Dose: 10 ml Levothyroxine Sodium (Levothyroxine Sodium 75 Mcg Tablet) 75 mcg PO DAILY@0630 [facility] Last Admin: 10/01/24 05:50 Dose: 75 mcg Lidocaine/Diphenhydr/Alum/Mg/Simeth (Mag&Al/Sim/Diphenhyd/Lidocaine 10 Ml Oral.Susp) 10 ml PO Q6H PRN; Protocol PRN Reason: Painful Gums Last Admin: 08/26/24 13:38 Dose: 10 ml Lorazepam (Lorazepam 0.5 Mg Tablet) 0.5 mg PO BID [facility] Last Admin: 10/01/24 09:43 Dose: 0.5 mg Magnesium Hydroxide (Milk Of Magnesia 30 Ml Oral.Susp) 30 ml PO DAILY PRN PRN Reason: Constipation Memantine (Memantine Hcl 5 Mg Tablet) 5 mg PO DAILY [facility] Last Admin: 10/01/24 09:44 Dose: 5 mg Olanzapine (Olanzapine Odt 10 Mg Tab.Rapdis) 5 mg TRANSLINGU Q6H PRN PRN Reason: Agitation Pravastatin Sodium (Pravastatin Sodium 40 Mg Tablet) 40 mg PO BEDTIME [facility] Last Admin: 09/30/24 21:16 Dose: 40 mg Vitamin D (Cholecalciferol (Vitamin D3) 25 Mcg Tablet) 50 mcg PO DAILY [facility] Last Admin: 10/01/24 09:43 Dose: 50 mcg Allergies Allergies Allergy/AdvReac Type Severity Reaction Status Date / Time meperidine [From Demerol] AdvReac Intermediate Rash Verified 08/23/24 19:34 morphine AdvReac Intermediate Rash Verified 08/23/24 19:35 Sulfa (Sulfonamide AdvReac Intermediate Rash Verified 08/23/24 19:36 Antibiotics) Assessment & Plan Assessment & Plan (1) Schizoaffective disorder: Status: Acute Code(s): F25.9 - Schizoaffective disorder, unspecified Plan Ms. Thomas is a 69 year-old woman with hx of Bipolar Disorder, she currently presents with several symptoms suggestive of negative symptoms seem usually in schizoaffective disorder including constricted affect, abulia (some acknowledgment that she needed to initiate certain activities like going to dentist but still not doing so for unclear reasons). No overt paranoid delusions, her delayed response may be signs of thought blocking and underlying psychosis. She is in agreement to receive treatment and complete work up to also assess her memory and cognition. We discussed restarting abilify, which was started while she was in the ED- will titrate dose. 08/[address] shows atrophy. pending MOCA/ACL. continue abilify but may increase and add low dose ativan. 08/26 will increased abilify to 15mg po daily. will add low dose ativan- wonder if it helps with delayed response, and some staring. 08/27: T102, URI Sx. influenza A POS. UA NEG. tamiflu, droplet precautions. increase HS ativan to 1 mg. otherwise continue prior mgmt. 08/28: no requests or complaints, appears drained, resting in bed. continue current mgmt. 08/29- continue to present febrile, this AM 101.F, O2sat on RA 94%, limited oral intake yesterday, ordered labs to monitor dehydration. pt after encouragement, drinking cup of orange juice, some water, bananas and saltine crackers. pending labs. 08/30 continue tx. afebrile today for most of the day. O2sat on RA 96%. less cough, no signs of respiratory distress. taking medications. 08/31 family meeting- discussed filing for guardianship, she is currently taking medications. no longer symptomatic in terms of Influenza. afebrile, no respiratory distress. 09/01 continue tx. will complete guardianship papers 09/02 guardianship filed. continue tx. started on namenda target abulia. abilify increased to 20mg po daily. 09/03 continue tx. 09/04 continue tx. 09/05 continue tx. 09/06 continue tx. 09/07 continue tx. 09/08: stable. no questions or complaints. continue current mgmt. 09/09 will increase abilify to 30mg po daily. 09/10/2024 Question if increase Abilify is worsening blunting and bulimia 09/11/2024 Continue Abilify might consider Latuda Provigil unclear what patient's baseline is 09/12 continue tx. 09/13 continue tx. 09/14 continue tx. 09/15 continue tx. 09/16 continue tx. VS stable. 09/17 Patient presents as suspicious and guarded with global technical writer. Patient kind of walking out of her room but at the side of global technical writer, backs up into her room, then walks out a little then backs up a little... She is vague with global technical writer but denies any psychiatric symptoms. -taking meds 09/18 paranoid, guarded; says yes to dysuria. Started on Ceftin for UTI 09/20 keep same treatment 09/22 keep same treatment 09/23 keep same treatment 09/24: continue current mgmt. stable, safe. no behavioral concerns. 09/25: no change from yesterday. 09/26 continue tx. awaiting guardianship 09/27 continue tx. 09/28 continue tx. 09/29 continue tx. 09/30 continue tx. Patient educated on: diagnosis Informed Consent: does not understand Reason for continued inpatient stay Substantial Risk for: inability to function Time Spent With Patient Time: Total time managing care of this patient today ____ minutes.
[2024-10-01 20:00] VITALS: BP 122/59; PULSE 84; RESP 16; TEMP 36.6; O2SAT 98
[2024-10-02 08:13] VITALS: BP 138/70; PULSE 94; RESP 18; TEMP 36.8; O2SAT 96
[2024-10-02] MEDS: ARIPiprazole 30 MG TABLET PO (08:14)
--- NOTE | 2024-10-02 17:04 | HO.PSYCHPN ---
Subjective Subjective Date of Service: 10/02/24 Reason For Visit: bipolar 1 disorder current or most recent epi Interim History: Met with patient; discussed with team Nursing reports that patient was upset today because she urinated on herself . She said I do not want to live like this though denied any SI. Patient upset that she often smells like urine. On approach however as real estate underwriter inquired, she said that today was an easier day.. and Had no concerns Mental Status Exam Mental Status Exam Narrative: Appearance: constricted affect, in NAD, malnourished, very poor dental hygiene (unbothered by it). Behavior: guarded, cautious Psychomotor: some retardation Speech: mostly clear, less latency, minimally spontaneous TP: [place] TC: no questions or complaints Mood: I do not want to live like this Affect:constricted, anxious SI: Denied HI: Denies VH/AH: denies but may be internally preoccupied Delusions: no overt delusional content noted or reported Insight/judgment: impaired . Diagnostics Vital Signs (24Hr): Vital Signs - 24 hr 10/01/24 20:00 10/02/24 08:13 Temperature 97.8 F 98.3 F Pulse Rate 84 94 Respiratory Rate 16 18 Blood Pressure 122/59 L 138/70 Pulse Oximetry 98 96 Oxygen Delivery Method Room Air Room Air BMI result Body Mass Index 20.4 Labs 08/27/24 10:00 08/29/24 17:32 Imaging Radiology Impressions: ITS Impressions Head CT 08/25/24 11:33 IMPRESSION: No acute intracranial abnormality. Electronically signed by: Cj Colunga MD 08/25/2024 12:12 PM [facility] [place] Medications Medications Current Medications Acetaminophen (Acetaminophen 325 Mg Tablet) 650 mg PO Q6H PRN PRN Reason: Headache/Pain, Scale 1-10 Last Admin: 08/30/24 20:35 Dose: 650 mg Al Hydroxide/Mg Hydroxide (Magnesium Hydrox/Alum Hydrox 30 Ml Oral.Susp) 30 ml PO Q6H PRN PRN Reason: Heartburn/Nausea Aripiprazole (Aripiprazole 30 Mg Tablet) 30 mg PO DAILY [facility] Last Admin: 10/02/24 08:14 Dose: 30 mg Benzocaine (Throat Lozenge, Medicated Lozenge) 1 lozenge MUCOUS MEM Q1H PRN PRN Reason: Sore Throat Last Admin: 09/01/24 06:09 Dose: 1 lozenge Guaifenesin/Dextromethorphan (Guaifenesin Dm 200/20/10 Ml 10 Ml Syrup) 10 ml PO Q4H PRN PRN Reason: Cough Last Admin: 08/30/24 05:47 Dose: 10 ml Levothyroxine Sodium (Levothyroxine Sodium 75 Mcg Tablet) 75 mcg PO DAILY@0630 [facility] Last Admin: 10/02/24 05:55 Dose: 75 mcg Lidocaine/Diphenhydr/Alum/Mg/Simeth (Mag&Al/Sim/Diphenhyd/Lidocaine 10 Ml Oral.Susp) 10 ml PO Q6H PRN; Protocol PRN Reason: Painful Gums Last Admin: 08/26/24 13:38 Dose: 10 ml Lorazepam (Lorazepam 0.5 Mg Tablet) 0.5 mg PO BID [facility] Last Admin: 10/02/24 08:14 Dose: 0.5 mg Magnesium Hydroxide (Milk Of Magnesia 30 Ml Oral.Susp) 30 ml PO DAILY PRN PRN Reason: Constipation Memantine (Memantine Hcl 5 Mg Tablet) 5 mg PO DAILY [facility] Last Admin: 10/02/24 08:14 Dose: 5 mg Olanzapine (Olanzapine Odt 10 Mg Tab.Rapdis) 5 mg TRANSLINGU Q6H PRN PRN Reason: Agitation Pravastatin Sodium (Pravastatin Sodium 40 Mg Tablet) 40 mg PO BEDTIME [facility] Last Admin: 10/01/24 20:45 Dose: 40 mg Vitamin D (Cholecalciferol (Vitamin D3) 25 Mcg Tablet) 50 mcg PO DAILY [facility] Last Admin: 10/02/24 08:14 Dose: 50 mcg Allergies Allergies Allergy/AdvReac Type Severity Reaction Status Date / Time meperidine [From Demerol] AdvReac Intermediate Rash Verified 08/23/24 19:34 morphine AdvReac Intermediate Rash Verified 08/23/24 19:35 Sulfa (Sulfonamide AdvReac Intermediate Rash Verified 08/23/24 19:36 Antibiotics) Assessment & Plan Assessment & Plan (1) Schizoaffective disorder: Status: Acute Code(s): F25.9 - Schizoaffective disorder, unspecified Plan Ms. Thomas is a 69 year-old woman with hx of Bipolar Disorder, she currently presents with several symptoms suggestive of negative symptoms seem usually in schizoaffective disorder including constricted affect, abulia (some acknowledgment that she needed to initiate certain activities like going to dentist but still not doing so for unclear reasons). No overt paranoid delusions, her delayed response may be signs of thought blocking and underlying psychosis. She is in agreement to receive treatment and complete work up to also assess her memory and cognition. We discussed restarting abilify, which was started while she was in the ED- will titrate dose. 08/[address] shows atrophy. pending MOCA/ACL. continue abilify but may increase and add low dose ativan. 08/26 will increased abilify to 15mg po daily. will add low dose ativan- wonder if it helps with delayed response, and some staring. 08/27: T102, URI Sx. influenza A POS. UA NEG. tamiflu, droplet precautions. increase HS ativan to 1 mg. otherwise continue prior mgmt. 08/28: no requests or complaints, appears drained, resting in bed. continue current mgmt. 08/29- continue to present febrile, this AM 101.F, O2sat on RA 94%, limited oral intake yesterday, ordered labs to monitor dehydration. pt after encouragement, drinking cup of orange juice, some water, bananas and saltine crackers. pending labs. 08/30 continue tx. afebrile today for most of the day. O2sat on RA 96%. less cough, no signs of respiratory distress. taking medications. 08/31 family meeting- discussed filing for guardianship, she is currently taking medications. no longer symptomatic in terms of Influenza. afebrile, no respiratory distress. 09/01 continue tx. will complete guardianship papers 09/02 guardianship filed. continue tx. started on namenda target abulia. abilify increased to 20mg po daily. 09/03 continue tx. 09/04 continue tx. 09/05 continue tx. 09/06 continue tx. 09/07 continue tx. 09/08: stable. no questions or complaints. continue current mgmt. 09/09 will increase abilify to 30mg po daily. 09/10/2024 Question if increase Abilify is worsening blunting and bulimia 09/11/2024 Continue Abilify might consider Latuda Provigil unclear what patient's baseline is 09/12 continue tx. 09/13 continue tx. 09/14 continue tx. 09/15 continue tx. 09/16 continue tx. VS stable. 09/17 Patient presents as suspicious and guarded with real estate underwriter. Patient kind of walking out of her room but at the side of real estate underwriter, backs up into her room, then walks out a little then backs up a little... She is vague with real estate underwriter but denies any psychiatric symptoms. -taking meds 09/18 paranoid, guarded; says yes to dysuria. Started on Ceftin for UTI 09/20 keep same treatment 09/22 keep same treatment 09/23 keep same treatment 09/24: continue current mgmt. stable, safe. no behavioral concerns. 09/25: no change from yesterday. 09/26 continue tx. awaiting guardianship 09/27 continue tx. 09/28 continue tx. 09/29 continue tx. 09/30 continue tx. 10/02 Nursing reports that patient was upset today because she urinated on herself . She said I do not want to live like this though denied any SI. Patient upset that she often smells like urine. On approach however as real estate underwriter inquired, she said that today was an easier day.. and Had no concerns Patient educated on: diagnosis Informed Consent: does not understand Reason for continued inpatient stay Substantial Risk for: inability to function Time Spent With Patient Time: Total time managing care of this patient today ____ minutes.
[2024-10-02 20:00] VITALS: BP 133/56; PULSE 97; RESP 16; TEMP 36.9; O2SAT 99
[2024-10-03 08:00] VITALS: BP 127/77; PULSE 88; RESP 17; TEMP 36.6; O2SAT 99
[2024-10-03] MEDS: ARIPiprazole 30 MG TABLET PO (12:14)
--- NOTE | 2024-10-03 15:41 | HO.PSYCHPN ---
Subjective Subjective Date of Service: 10/03/24 Reason For Visit: bipolar 1 disorder current or most recent epi Interim History: in bed, awake. denies any problems, has no questions. per staff, no notable events or behaviors. Mental Status Exam Mental Status Exam Narrative: Appearance: constricted affect, in NAD, malnourished, very poor dental hygiene (unbothered by it). Behavior: guarded, cautious Psychomotor: some retardation Speech: mostly clear, less latency, minimally spontaneous TP: [place] TC: no questions or complaints Mood: not assessed Affect:constricted, anxious SI: none expressed HI: none expressed VH/AH: none evidenced Delusions: no overt delusional content noted or reported Insight/judgment: impaired . Diagnostics Vital Signs (24Hr): Vital Signs - 24 hr 10/02/24 20:00 10/03/24 08:00 Temperature 98.4 F 98 F Pulse Rate 97 88 Respiratory Rate 16 17 Blood Pressure 133/56 L 127/77 Pulse Oximetry 99 99 Oxygen Delivery Method Room Air Room Air BMI result Body Mass Index 20.4 Labs 08/27/24 10:00 08/29/24 17:32 Imaging Radiology Impressions: ITS Impressions Head CT 08/25/24 11:33 IMPRESSION: No acute intracranial abnormality. Electronically signed by: Cj Colunga MD 08/25/2024 12:12 PM [facility] [place] Medications Medications Current Medications Acetaminophen (Acetaminophen 325 Mg Tablet) 650 mg PO Q6H PRN PRN Reason: Headache/Pain, Scale 1-10 Last Admin: 08/30/24 20:35 Dose: 650 mg Al Hydroxide/Mg Hydroxide (Magnesium Hydrox/Alum Hydrox 30 Ml Oral.Susp) 30 ml PO Q6H PRN PRN Reason: Heartburn/Nausea Aripiprazole (Aripiprazole 30 Mg Tablet) 30 mg PO DAILY [facility] Last Admin: 10/03/24 12:14 Dose: 30 mg Benzocaine (Throat Lozenge, Medicated Lozenge) 1 lozenge MUCOUS MEM Q1H PRN PRN Reason: Sore Throat Last Admin: 09/01/24 06:09 Dose: 1 lozenge Guaifenesin/Dextromethorphan (Guaifenesin Dm 200/20/10 Ml 10 Ml Syrup) 10 ml PO Q4H PRN PRN Reason: Cough Last Admin: 08/30/24 05:47 Dose: 10 ml Levothyroxine Sodium (Levothyroxine Sodium 75 Mcg Tablet) 75 mcg PO DAILY@0630 [facility] Last Admin: 10/03/24 05:23 Dose: 75 mcg Lidocaine/Diphenhydr/Alum/Mg/Simeth (Mag&Al/Sim/Diphenhyd/Lidocaine 10 Ml Oral.Susp) 10 ml PO Q6H PRN; Protocol PRN Reason: Painful Gums Last Admin: 08/26/24 13:38 Dose: 10 ml Lorazepam (Lorazepam 0.5 Mg Tablet) 0.5 mg PO BID [facility] Last Admin: 10/03/24 12:14 Dose: 0.5 mg Magnesium Hydroxide (Milk Of Magnesia 30 Ml Oral.Susp) 30 ml PO DAILY PRN PRN Reason: Constipation Memantine (Memantine Hcl 5 Mg Tablet) 5 mg PO DAILY [facility] Last Admin: 10/03/24 12:14 Dose: 5 mg Olanzapine (Olanzapine Odt 10 Mg Tab.Rapdis) 5 mg TRANSLINGU Q6H PRN PRN Reason: Agitation Pravastatin Sodium (Pravastatin Sodium 40 Mg Tablet) 40 mg PO BEDTIME [facility] Last Admin: 10/02/24 20:16 Dose: 40 mg Vitamin D (Cholecalciferol (Vitamin D3) 25 Mcg Tablet) 50 mcg PO DAILY [facility] Last Admin: 10/03/24 12:13 Dose: 50 mcg Allergies Allergies Allergy/AdvReac Type Severity Reaction Status Date / Time meperidine [From Demerol] AdvReac Intermediate Rash Verified 08/23/24 19:34 morphine AdvReac Intermediate Rash Verified 08/23/24 19:35 Sulfa (Sulfonamide AdvReac Intermediate Rash Verified 08/23/24 19:36 Antibiotics) Assessment & Plan Assessment & Plan (1) Schizoaffective disorder: Status: Acute Code(s): F25.9 - Schizoaffective disorder, unspecified Plan Ms. Thomas is a 69 year-old woman with hx of Bipolar Disorder, she currently presents with several symptoms suggestive of negative symptoms seem usually in schizoaffective disorder including constricted affect, abulia (some acknowledgment that she needed to initiate certain activities like going to dentist but still not doing so for unclear reasons). No overt paranoid delusions, her delayed response may be signs of thought blocking and underlying psychosis. She is in agreement to receive treatment and complete work up to also assess her memory and cognition. We discussed restarting abilify, which was started while she was in the ED- will titrate dose. 08/[address] shows atrophy. pending MOCA/ACL. continue abilify but may increase and add low dose ativan. 08/26 will increased abilify to 15mg po daily. will add low dose ativan- wonder if it helps with delayed response, and some staring. 08/27: T102, URI Sx. influenza A POS. UA NEG. tamiflu, droplet precautions. increase HS ativan to 1 mg. otherwise continue prior mgmt. 08/28: no requests or complaints, appears drained, resting in bed. continue current mgmt. 08/29- continue to present febrile, this AM 101.F, O2sat on RA 94%, limited oral intake yesterday, ordered labs to monitor dehydration. pt after encouragement, drinking cup of orange juice, some water, bananas and saltine crackers. pending labs. 08/30 continue tx. afebrile today for most of the day. O2sat on RA 96%. less cough, no signs of respiratory distress. taking medications. 08/31 family meeting- discussed filing for guardianship, she is currently taking medications. no longer symptomatic in terms of Influenza. afebrile, no respiratory distress. 09/01 continue tx. will complete guardianship papers 09/02 guardianship filed. continue tx. started on namenda target abulia. abilify increased to 20mg po daily. 09/03 continue tx. 09/04 continue tx. 09/05 continue tx. 09/06 continue tx. 09/07 continue tx. 09/08: stable. no questions or complaints. continue current mgmt. 09/09 will increase abilify to 30mg po daily. 09/10/2024 Question if increase Abilify is worsening blunting and bulimia 09/11/2024 Continue Abilify might consider Latuda Provigil unclear what patient's baseline is 09/12 continue tx. 09/13 continue tx. 09/14 continue tx. 09/15 continue tx. 09/16 continue tx. VS stable. 09/17 Patient presents as suspicious and guarded with writer producer. Patient kind of walking out of her room but at the side of writer producer, backs up into her room, then walks out a little then backs up a little... She is vague with writer producer but denies any psychiatric symptoms. -taking meds 09/18 paranoid, guarded; says yes to dysuria. Started on Ceftin for UTI 09/20 keep same treatment 09/22 keep same treatment 09/23 keep same treatment 09/24: continue current mgmt. stable, safe. no behavioral concerns. 09/25: no change from yesterday. 09/26 continue tx. awaiting guardianship 09/27 continue tx. 09/28 continue tx. 09/29 continue tx. 09/30 continue tx. 10/02 Nursing reports that patient was upset today because she urinated on herself . She said I do not want to live like this though denied any SI. Patient upset that she often smells like urine. On approach however as writer producer inquired, she said that today was an easier day.. and Had no concerns. 10/03: stable, no change in presentation. continue current mgmt. Reason for continued inpatient stay Substantial Risk for: inability to function and rapid decompensation Time Spent With Patient Time: Total time managing care of this patient today ____ minutes.
[2024-10-03 20:00] VITALS: BP 126/60; PULSE 78; RESP 15; TEMP 36.3; O2SAT 99
[2024-10-04 07:55] VITALS: BP 125/76; PULSE 100; RESP 18; TEMP 36.8; O2SAT 96
[2024-10-04] MEDS: ARIPiprazole 30 MG TABLET PO (08:32)
--- NOTE | 2024-10-04 15:18 | HO.PSYCHPN ---
Subjective Subjective Date of Service: 10/04/24 Reason For Visit: bipolar 1 disorder current or most recent epi Interim History: no change in presentation. lying in bed, awake, alert. no complaints or requests. per staff, eating and sleeping well. awaiting SNF placement, awaiting guardian. Mental Status Exam Mental Status Exam Narrative: Appearance: constricted affect, in NAD, malnourished, very poor dental hygiene (unbothered by it). Behavior: guarded, cautious Psychomotor: some retardation Speech: mostly clear, less latency, minimally spontaneous TP: [place] TC: no questions or complaints Mood: good Affect: constricted, anxious SI: none expressed HI: none expressed VH/AH: none evidenced Delusions: no overt delusional content noted or reported Insight/judgment: impaired . Diagnostics Vital Signs (24Hr): Vital Signs - 24 hr 10/03/24 20:00 10/04/24 07:55 Temperature 97.4 F 98.2 F Pulse Rate 78 100 Respiratory Rate 15 18 Blood Pressure 126/60 125/76 Pulse Oximetry 99 96 Oxygen Delivery Method Room Air Room Air BMI result Body Mass Index 20.4 Labs 08/27/24 10:00 08/29/24 17:32 Imaging Radiology Impressions: ITS Impressions Head CT 08/25/24 11:33 IMPRESSION: No acute intracranial abnormality. Electronically signed by: Cj Colunga MD 08/25/2024 12:12 PM [facility] [place] Medications Medications Current Medications Acetaminophen (Acetaminophen 325 Mg Tablet) 650 mg PO Q6H PRN PRN Reason: Headache/Pain, Scale 1-10 Last Admin: 08/30/24 20:35 Dose: 650 mg Al Hydroxide/Mg Hydroxide (Magnesium Hydrox/Alum Hydrox 30 Ml Oral.Susp) 30 ml PO Q6H PRN PRN Reason: Heartburn/Nausea Aripiprazole (Aripiprazole 30 Mg Tablet) 30 mg PO DAILY [facility] Last Admin: 10/04/24 08:32 Dose: 30 mg Benzocaine (Throat Lozenge, Medicated Lozenge) 1 lozenge MUCOUS MEM Q1H PRN PRN Reason: Sore Throat Last Admin: 09/01/24 06:09 Dose: 1 lozenge Guaifenesin/Dextromethorphan (Guaifenesin Dm 200/20/10 Ml 10 Ml Syrup) 10 ml PO Q4H PRN PRN Reason: Cough Last Admin: 08/30/24 05:47 Dose: 10 ml Levothyroxine Sodium (Levothyroxine Sodium 75 Mcg Tablet) 75 mcg PO DAILY@0630 [facility] Last Admin: 10/04/24 05:32 Dose: 75 mcg Lidocaine/Diphenhydr/Alum/Mg/Simeth (Mag&Al/Sim/Diphenhyd/Lidocaine 10 Ml Oral.Susp) 10 ml PO Q6H PRN; Protocol PRN Reason: Painful Gums Last Admin: 08/26/24 13:38 Dose: 10 ml Lorazepam (Lorazepam 0.5 Mg Tablet) 0.5 mg PO BID [facility] Last Admin: 10/04/24 08:32 Dose: 0.5 mg Magnesium Hydroxide (Milk Of Magnesia 30 Ml Oral.Susp) 30 ml PO DAILY PRN PRN Reason: Constipation Memantine (Memantine Hcl 5 Mg Tablet) 5 mg PO DAILY [facility] Last Admin: 10/04/24 08:32 Dose: 5 mg Olanzapine (Olanzapine Odt 10 Mg Tab.Rapdis) 5 mg TRANSLINGU Q6H PRN PRN Reason: Agitation Pravastatin Sodium (Pravastatin Sodium 40 Mg Tablet) 40 mg PO BEDTIME [facility] Last Admin: 10/03/24 20:09 Dose: 40 mg Vitamin D (Cholecalciferol (Vitamin D3) 25 Mcg Tablet) 50 mcg PO DAILY [facility] Last Admin: 10/04/24 08:32 Dose: 50 mcg Allergies Allergies Allergy/AdvReac Type Severity Reaction Status Date / Time meperidine [From Demerol] AdvReac Intermediate Rash Verified 08/23/24 19:34 morphine AdvReac Intermediate Rash Verified 08/23/24 19:35 Sulfa (Sulfonamide AdvReac Intermediate Rash Verified 08/23/24 19:36 Antibiotics) Assessment & Plan Assessment & Plan (1) Schizoaffective disorder: Status: Acute Code(s): F25.9 - Schizoaffective disorder, unspecified Plan Ms. Thomas is a 69 year-old woman with hx of Bipolar Disorder, she currently presents with several symptoms suggestive of negative symptoms seem usually in schizoaffective disorder including constricted affect, abulia (some acknowledgment that she needed to initiate certain activities like going to dentist but still not doing so for unclear reasons). No overt paranoid delusions, her delayed response may be signs of thought blocking and underlying psychosis. She is in agreement to receive treatment and complete work up to also assess her memory and cognition. We discussed restarting abilify, which was started while she was in the ED- will titrate dose. 08/[address] shows atrophy. pending MOCA/ACL. continue abilify but may increase and add low dose ativan. 08/26 will increased abilify to 15mg po daily. will add low dose ativan- wonder if it helps with delayed response, and some staring. 08/27: T102, URI Sx. influenza A POS. UA NEG. tamiflu, droplet precautions. increase HS ativan to 1 mg. otherwise continue prior mgmt. 08/28: no requests or complaints, appears drained, resting in bed. continue current mgmt. 08/29- continue to present febrile, this AM 101.F, O2sat on RA 94%, limited oral intake yesterday, ordered labs to monitor dehydration. pt after encouragement, drinking cup of orange juice, some water, bananas and saltine crackers. pending labs. 08/30 continue tx. afebrile today for most of the day. O2sat on RA 96%. less cough, no signs of respiratory distress. taking medications. 08/31 family meeting- discussed filing for guardianship, she is currently taking medications. no longer symptomatic in terms of Influenza. afebrile, no respiratory distress. 09/01 continue tx. will complete guardianship papers 09/02 guardianship filed. continue tx. started on namenda target abulia. abilify increased to 20mg po daily. 09/03 continue tx. 09/04 continue tx. 09/05 continue tx. 09/06 continue tx. 09/07 continue tx. 09/08: stable. no questions or complaints. continue current mgmt. 09/09 will increase abilify to 30mg po daily. 09/10/2024 Question if increase Abilify is worsening blunting and bulimia 09/11/2024 Continue Abilify might consider Latuda Provigil unclear what patient's baseline is 09/12 continue tx. 09/13 continue tx. 09/14 continue tx. 09/15 continue tx. 09/16 continue tx. VS stable. 09/17 Patient presents as suspicious and guarded with advertising copywriter. Patient kind of walking out of her room but at the side of advertising copywriter, backs up into her room, then walks out a little then backs up a little... She is vague with advertising copywriter but denies any psychiatric symptoms. -taking meds 09/18 paranoid, guarded; says yes to dysuria. Started on Ceftin for UTI 09/20 keep same treatment 09/22 keep same treatment 09/23 keep same treatment 09/24: continue current mgmt. stable, safe. no behavioral concerns. 09/25: no change from yesterday. 09/26 continue tx. awaiting guardianship 09/27 continue tx. 09/28 continue tx. 09/29 continue tx. 09/30 continue tx. 10/02 Nursing reports that patient was upset today because she urinated on herself . She said I do not want to live like this though denied any SI. Patient upset that she often smells like urine. On approach however as advertising copywriter inquired, she said that today was an easier day.. and Had no concerns. 10/03: stable, no change in presentation. continue current mgmt. 10/04: stable. continue current mgmt. awaiting SNF placement and guardian. Reason for continued inpatient stay Substantial Risk for: inability to function Time Spent With Patient Time: Total time managing care of this patient today ____ minutes.
[2024-10-04 20:00] VITALS: BP 123/54; PULSE 79; RESP 16; TEMP 36.4; O2SAT 97
--- NOTE | 2024-10-04 22:41 | P.PNPSI_ITS ---
Subjective Subjective Reason For Visit: bipolar 1 disorder current or most recent epi Diagnostics Vital Signs (24Hr): Vital Signs - 24 hr 10/04/24 07:55 10/04/24 20:00 Temperature 98.2 F 97.5 F Pulse Rate 100 79 Respiratory Rate 18 16 Blood Pressure 125/76 123/54 L Pulse Oximetry 96 97 Oxygen Delivery Method Room Air Room Air BMI result Body Mass Index 20.4 Labs 08/27/24 10:00 08/29/24 17:32 Imaging Radiology Impressions: ITS Impressions Head CT 08/25/24 11:33 IMPRESSION: No acute intracranial abnormality. Electronically signed by: Cj Colunga MD 08/25/2024 12:12 PM [facility] [place] Medications Medications Current Medications Acetaminophen (Acetaminophen 325 Mg Tablet) 650 mg PO Q6H PRN PRN Reason: Headache/Pain, Scale 1-10 Last Admin: 08/30/24 20:35 Dose: 650 mg Al Hydroxide/Mg Hydroxide (Magnesium Hydrox/Alum Hydrox 30 Ml Oral.Susp) 30 ml PO Q6H PRN PRN Reason: Heartburn/Nausea Aripiprazole (Aripiprazole 30 Mg Tablet) 30 mg PO DAILY [facility] Last Admin: 10/04/24 08:32 Dose: 30 mg Benzocaine (Throat Lozenge, Medicated Lozenge) 1 lozenge MUCOUS MEM Q1H PRN PRN Reason: Sore Throat Last Admin: 09/01/24 06:09 Dose: 1 lozenge Guaifenesin/Dextromethorphan (Guaifenesin Dm 200/20/10 Ml 10 Ml Syrup) 10 ml PO Q4H PRN PRN Reason: Cough Last Admin: 08/30/24 05:47 Dose: 10 ml Levothyroxine Sodium (Levothyroxine Sodium 75 Mcg Tablet) 75 mcg PO DAILY@0630 [facility] Last Admin: 10/04/24 05:32 Dose: 75 mcg Lidocaine/Diphenhydr/Alum/Mg/Simeth (Mag&Al/Sim/Diphenhyd/Lidocaine 10 Ml Oral.Susp) 10 ml PO Q6H PRN; Protocol PRN Reason: Painful Gums Last Admin: 08/26/24 13:38 Dose: 10 ml Lorazepam (Lorazepam 0.5 Mg Tablet) 0.5 mg PO BID [facility] Last Admin: 10/04/24 21:18 Dose: 0.5 mg Magnesium Hydroxide (Milk Of Magnesia 30 Ml Oral.Susp) 30 ml PO DAILY PRN PRN Reason: Constipation Memantine (Memantine Hcl 5 Mg Tablet) 5 mg PO DAILY [facility] Last Admin: 10/04/24 08:32 Dose: 5 mg Olanzapine (Olanzapine Odt 10 Mg Tab.Rapdis) 5 mg TRANSLINGU Q6H PRN PRN Reason: Agitation Pravastatin Sodium (Pravastatin Sodium 40 Mg Tablet) 40 mg PO BEDTIME [facility] Last Admin: 10/04/24 21:18 Dose: 40 mg Vitamin D (Cholecalciferol (Vitamin D3) 25 Mcg Tablet) 50 mcg PO DAILY [facility] Last Admin: 10/04/24 08:32 Dose: 50 mcg Allergies Allergies Allergy/AdvReac Type Severity Reaction Status Date / Time meperidine [From Demerol] AdvReac Intermediate Rash Verified 08/23/24 19:34 morphine AdvReac Intermediate Rash Verified 08/23/24 19:35 Sulfa (Sulfonamide AdvReac Intermediate Rash Verified 08/23/24 19:36 Antibiotics) Assessment & Plan Assessment & Plan (1) Schizoaffective disorder: Status: Acute Code(s): F25.9 - Schizoaffective disorder, unspecified Plan Ms. Thomas is a 69 year-old woman with hx of Bipolar Disorder, she currently presents with several symptoms suggestive of negative symptoms seem usually in schizoaffective disorder including constricted affect, abulia (some acknowledgment that she needed to initiate certain activities like going to dentist but still not doing so for unclear reasons). No overt paranoid delusions, her delayed response may be signs of thought blocking and underlying psychosis. She is in agreement to receive treatment and complete work up to also assess her memory and cognition. We discussed restarting abilify, which was started while she was in the ED- will titrate dose. 08/[address] shows atrophy. pending MOCA/ACL. continue abilify but may increase and add low dose ativan. 08/26 will increased abilify to 15mg po daily. will add low dose ativan- wonder if it helps with delayed response, and some staring. 08/27: T102, URI Sx. influenza A POS. UA NEG. tamiflu, droplet precautions. increase HS ativan to 1 mg. otherwise continue prior mgmt. 08/28: no requests or complaints, appears drained, resting in bed. continue current mgmt. 08/29- continue to present febrile, this AM 101.F, O2sat on RA 94%, limited oral intake yesterday, ordered labs to monitor dehydration. pt after encouragement, drinking cup of orange juice, some water, bananas and saltine crackers. pending labs. 08/30 continue tx. afebrile today for most of the day. O2sat on RA 96%. less cough, no signs of respiratory distress. taking medications. 08/31 family meeting- discussed filing for guardianship, she is currently taking medications. no longer symptomatic in terms of Influenza. afebrile, no respiratory distress. 09/01 continue tx. will complete guardianship papers 09/02 guardianship filed. continue tx. started on namenda target abulia. abilify increased to 20mg po daily. 09/03 continue tx. 09/04 continue tx. 09/05 continue tx. 09/06 continue tx. 09/07 continue tx. 09/08: stable. no questions or complaints. continue current mgmt. 09/09 will increase abilify to 30mg po daily. 09/10/2024 Question if increase Abilify is worsening blunting and bulimia 09/11/2024 Continue Abilify might consider Latuda Provigil unclear what patient's baseline is 09/12 continue tx. 09/13 continue tx. 09/14 continue tx. 09/15 continue tx. 09/16 continue tx. VS stable. 09/17 Patient presents as suspicious and guarded with specifications writer. Patient kind of walking out of her room but at the side of specifications writer, backs up into her room, then walks out a little then backs up a little... She is vague with specifications writer but denies any psychiatric symptoms. -taking meds 09/18 paranoid, guarded; says yes to dysuria. Started on Ceftin for UTI 09/20 keep same treatment 09/22 keep same treatment 09/23 keep same treatment 09/24: continue current mgmt. stable, safe. no behavioral concerns. 09/25: no change from yesterday. 09/26 continue tx. awaiting guardianship 09/27 continue tx. 4/2 continue tx. 09/29 continue tx. 09/30 continue tx. 10/02 Nursing reports that patient was upset today because she urinated on herself . She said I do not want to live like this though denied any SI. Patient upset that she often smells like urine. On approach however as specifications writer inquired, she said that today was an easier day.. and Had no concerns. 10/03: stable, no change in presentation. continue current mgmt. 10/04: stable. continue current mgmt. awaiting SNF placement and guardian. Time Spent With Patient Time: Total time managing care of this patient today ____ minutes.
[2024-10-05 07:55] VITALS: BP 116/63; PULSE 100; RESP 18; TEMP 36.6; O2SAT 98
[2024-10-05] MEDS: ARIPiprazole 30 MG TABLET PO (08:32)
--- NOTE | 2024-10-05 12:05 | P.PNPSI_ITS ---
Subjective Subjective Date of Service: 10/05/24 Reason For Visit: bipolar 1 disorder current or most recent epi Interim History: no change in presentation. lying in bed, awake and alert, no complaints or requests. per staff, flat, withdrawn. eating 100%. taking meds. slept 8 hours. Mental Status Exam Mental Status Exam Narrative: Appearance: constricted affect, in NAD, malnourished, very poor dental hygiene (unbothered by it). Behavior: guarded, cautious Psychomotor: some retardation Speech: mostly clear, less latency, minimally spontaneous TP: [place] TC: no questions or complaints Mood: good Affect: constricted, anxious SI: none expressed HI: none expressed VH/AH: none evidenced Delusions: no overt delusional content noted or reported Insight/judgment: impaired . Diagnostics Vital Signs (24Hr): Vital Signs - 24 hr 10/04/24 20:00 10/05/24 07:55 Temperature 97.5 F 97.9 F Pulse Rate 79 100 Respiratory Rate 16 18 Blood Pressure 123/54 L 116/63 Pulse Oximetry 97 98 Oxygen Delivery Method Room Air Room Air BMI result Body Mass Index 20.4 Labs 08/27/24 10:00 08/29/24 17:32 Imaging Radiology Impressions: ITS Impressions Head CT 08/25/24 11:33 IMPRESSION: No acute intracranial abnormality. Electronically signed by: Cj Colunga MD 08/25/2024 12:12 PM [facility] [place] Medications Medications Current Medications Acetaminophen (Acetaminophen 325 Mg Tablet) 650 mg PO Q6H PRN PRN Reason: Headache/Pain, Scale 1-10 Last Admin: 08/30/24 20:35 Dose: 650 mg Al Hydroxide/Mg Hydroxide (Magnesium Hydrox/Alum Hydrox 30 Ml Oral.Susp) 30 ml PO Q6H PRN PRN Reason: Heartburn/Nausea Aripiprazole (Aripiprazole 30 Mg Tablet) 30 mg PO DAILY [facility] Last Admin: 10/05/24 08:32 Dose: 30 mg Benzocaine (Throat Lozenge, Medicated Lozenge) 1 lozenge MUCOUS MEM Q1H PRN PRN Reason: Sore Throat Last Admin: 09/01/24 06:09 Dose: 1 lozenge Guaifenesin/Dextromethorphan (Guaifenesin Dm 200/20/10 Ml 10 Ml Syrup) 10 ml PO Q4H PRN PRN Reason: Cough Last Admin: 08/30/24 05:47 Dose: 10 ml Levothyroxine Sodium (Levothyroxine Sodium 75 Mcg Tablet) 75 mcg PO DAILY@0630 [facility] Last Admin: 10/05/24 05:32 Dose: 75 mcg Lidocaine/Diphenhydr/Alum/Mg/Simeth (Mag&Al/Sim/Diphenhyd/Lidocaine 10 Ml Oral.Susp) 10 ml PO Q6H PRN; Protocol PRN Reason: Painful Gums Last Admin: 08/26/24 13:38 Dose: 10 ml Lorazepam (Lorazepam 0.5 Mg Tablet) 0.5 mg PO BID [facility] Last Admin: 10/05/24 08:32 Dose: 0.5 mg Magnesium Hydroxide (Milk Of Magnesia 30 Ml Oral.Susp) 30 ml PO DAILY PRN PRN Reason: Constipation Memantine (Memantine Hcl 5 Mg Tablet) 5 mg PO DAILY [facility] Last Admin: 10/05/24 08:32 Dose: 5 mg Olanzapine (Olanzapine Odt 10 Mg Tab.Rapdis) 5 mg TRANSLINGU Q6H PRN PRN Reason: Agitation Pravastatin Sodium (Pravastatin Sodium 40 Mg Tablet) 40 mg PO BEDTIME [facility] Last Admin: 10/04/24 21:18 Dose: 40 mg Vitamin D (Cholecalciferol (Vitamin D3) 25 Mcg Tablet) 50 mcg PO DAILY [facility] Last Admin: 10/05/24 08:32 Dose: 50 mcg Allergies Allergies Allergy/AdvReac Type Severity Reaction Status Date / Time meperidine [From Demerol] AdvReac Intermediate Rash Verified 08/23/24 19:34 morphine AdvReac Intermediate Rash Verified 08/23/24 19:35 Sulfa (Sulfonamide AdvReac Intermediate Rash Verified 08/23/24 19:36 Antibiotics) Assessment & Plan Assessment & Plan (1) Schizoaffective disorder: Status: Acute Code(s): F25.9 - Schizoaffective disorder, unspecified Plan Ms. Thomas is a 69 year-old woman with hx of Bipolar Disorder, she currently presents with several symptoms suggestive of negative symptoms seem usually in schizoaffective disorder including constricted affect, abulia (some acknowledgment that she needed to initiate certain activities like going to dentist but still not doing so for unclear reasons). No overt paranoid delusions, her delayed response may be signs of thought blocking and underlying psychosis. She is in agreement to receive treatment and complete work up to also assess her memory and cognition. We discussed restarting abilify, which was started while she was in the ED- will titrate dose. 08/[address] shows atrophy. pending MOCA/ACL. continue abilify but may increase and add low dose ativan. 08/26 will increased abilify to 15mg po daily. will add low dose ativan- wonder if it helps with delayed response, and some staring. 08/27: T102, URI Sx. influenza A POS. UA NEG. tamiflu, droplet precautions. increase HS ativan to 1 mg. otherwise continue prior mgmt. 08/28: no requests or complaints, appears drained, resting in bed. continue current mgmt. 08/29- continue to present febrile, this AM 101.F, O2sat on RA 94%, limited oral intake yesterday, ordered labs to monitor dehydration. pt after encouragement, drinking cup of orange juice, some water, bananas and saltine crackers. pending labs. 08/30 continue tx. afebrile today for most of the day. O2sat on RA 96%. less cough, no signs of respiratory distress. taking medications. 08/31 family meeting- discussed filing for guardianship, she is currently taking medications. no longer symptomatic in terms of Influenza. afebrile, no respiratory distress. 09/01 continue tx. will complete guardianship papers 09/02 guardianship filed. continue tx. started on namenda target abulia. abilify increased to 20mg po daily. 09/03 continue tx. 09/04 continue tx. 09/05 continue tx. 09/06 continue tx. 09/07 continue tx. 09/08: stable. no questions or complaints. continue current mgmt. 09/09 will increase abilify to 30mg po daily. 09/10/2024 Question if increase Abilify is worsening blunting and bulimia 09/11/2024 Continue Abilify might consider Latuda Provigil unclear what patient's baseline is 09/12 continue tx. 09/13 continue tx. 09/14 continue tx. 09/15 continue tx. 09/16 continue tx. VS stable. 09/17 Patient presents as suspicious and guarded with policy writer typist. Patient kind of walking out of her room but at the side of policy writer typist, backs up into her room, then walks out a little then backs up a little... She is vague with policy writer typist but denies any psychiatric symptoms. -taking meds 09/18 paranoid, guarded; says yes to dysuria. Started on Ceftin for UTI 09/20 keep same treatment 09/22 keep same treatment 09/23 keep same treatment 09/24: continue current mgmt. stable, safe. no behavioral concerns. 09/25: no change from yesterday. 09/26 continue tx. awaiting guardianship 09/27 continue tx. 09/28 continue tx. 09/29 continue tx. 09/30 continue tx. 10/02 Nursing reports that patient was upset today because she urinated on herself . She said I do not want to live like this though denied any SI. Patient upset that she often smells like urine. On approach however as policy writer typist inquired, she said that today was an easier day.. and Had no concerns. 10/03: stable, no change in presentation. continue current mgmt. 10/04: stable. continue current mgmt. awaiting SNF placement and guardian. 10/05: no change in presentation or plan. Reason for continued inpatient stay Substantial Risk for: inability to function and rapid decompensation Time Spent With Patient Time: Total time managing care of this patient today ____ minutes.
[2024-10-05 20:00] VITALS: BP 109/55; PULSE 80; RESP 16; TEMP 36.1; O2SAT 97
[2024-10-06 07:00] VITALS: BMI 21.0
[2024-10-06 08:33] VITALS: BP 116/58; PULSE 84; RESP 20; TEMP 36.8; O2SAT 96
[2024-10-06] MEDS: ARIPiprazole 30 MG TABLET PO (08:36)
--- NOTE | 2024-10-06 14:57 | HO.PSYCHPN ---
Subjective Subjective Date of Service: 10/06/24 Reason For Visit: bipolar 1 disorder current or most recent epi Interim History: at table eating breakfast, cleaned her plate. appears well-contented, has no questions or complaints. per staff, brighter affect overall. eating, taking meds. slept about 8 hours. Mental Status Exam Mental Status Exam Narrative: Appearance: adequately dressed and groomed Behavior: guarded, cautious Psychomotor: some retardation Speech: mostly clear, less latency, minimally spontaneous TP: [place] TC: no questions or complaints Mood: good Affect: flexible SI: none expressed HI: none expressed VH/AH: none evidenced Delusions: no overt delusional content noted or reported Insight/judgment: impaired . Diagnostics Vital Signs (24Hr): Vital Signs - 24 hr 10/05/24 20:00 10/06/24 08:33 Temperature 97 F 98.2 F Pulse Rate 80 84 Respiratory Rate 16 20 Blood Pressure 109/55 L 116/58 L Pulse Oximetry 97 96 Oxygen Delivery Method Room Air Room Air BMI result Body Mass Index 20.4 Labs 08/27/24 10:00 08/29/24 17:32 Imaging Radiology Impressions: ITS Impressions Head CT 08/25/24 11:33 IMPRESSION: No acute intracranial abnormality. Electronically signed by: Cj Colunga MD 08/25/2024 12:12 PM [facility] Medications Medications Current Medications Acetaminophen (Acetaminophen 325 Mg Tablet) 650 mg PO Q6H PRN PRN Reason: Headache/Pain, Scale 1-10 Last Admin: 08/30/24 20:35 Dose: 650 mg Al Hydroxide/Mg Hydroxide (Magnesium Hydrox/Alum Hydrox 30 Ml Oral.Susp) 30 ml PO Q6H PRN PRN Reason: Heartburn/Nausea Aripiprazole (Aripiprazole 30 Mg Tablet) 30 mg PO DAILY [facility] Last Admin: 10/06/24 08:36 Dose: 30 mg Benzocaine (Throat Lozenge, Medicated Lozenge) 1 lozenge MUCOUS MEM Q1H PRN PRN Reason: Sore Throat Last Admin: 09/01/24 06:09 Dose: 1 lozenge Guaifenesin/Dextromethorphan (Guaifenesin Dm 200/20/10 Ml 10 Ml Syrup) 10 ml PO Q4H PRN PRN Reason: Cough Last Admin: 08/30/24 05:47 Dose: 10 ml Levothyroxine Sodium (Levothyroxine Sodium 75 Mcg Tablet) 75 mcg PO DAILY@0630 [facility] Last Admin: 10/06/24 05:33 Dose: 75 mcg Lidocaine/Diphenhydr/Alum/Mg/Simeth (Mag&Al/Sim/Diphenhyd/Lidocaine 10 Ml Oral.Susp) 10 ml PO Q6H PRN; Protocol PRN Reason: Painful Gums Last Admin: 08/26/24 13:38 Dose: 10 ml Lorazepam (Lorazepam 0.5 Mg Tablet) 0.5 mg PO BID [facility] Last Admin: 10/06/24 08:36 Dose: 0.5 mg Magnesium Hydroxide (Milk Of Magnesia 30 Ml Oral.Susp) 30 ml PO DAILY PRN PRN Reason: Constipation Memantine (Memantine Hcl 5 Mg Tablet) 5 mg PO DAILY [facility] Last Admin: 10/06/24 08:36 Dose: 5 mg Olanzapine (Olanzapine Odt 10 Mg Tab.Rapdis) 5 mg TRANSLINGU Q6H PRN PRN Reason: Agitation Pravastatin Sodium (Pravastatin Sodium 40 Mg Tablet) 40 mg PO BEDTIME [facility] Last Admin: 10/05/24 21:00 Dose: 40 mg Vitamin D (Cholecalciferol (Vitamin D3) 25 Mcg Tablet) 50 mcg PO DAILY [facility] Last Admin: 10/06/24 08:35 Dose: 50 mcg Allergies Allergies Allergy/AdvReac Type Severity Reaction Status Date / Time meperidine [From Demerol] AdvReac Intermediate Rash Verified 08/23/24 19:34 morphine AdvReac Intermediate Rash Verified 08/23/24 19:35 Sulfa (Sulfonamide AdvReac Intermediate Rash Verified 08/23/24 19:36 Antibiotics) Assessment & Plan Assessment & Plan (1) Schizoaffective disorder: Status: Acute Code(s): F25.9 - Schizoaffective disorder, unspecified Plan Ms. Thomas is a 69 year-old woman with hx of Bipolar Disorder, she currently presents with several symptoms suggestive of negative symptoms seem usually in schizoaffective disorder including constricted affect, abulia (some acknowledgment that she needed to initiate certain activities like going to dentist but still not doing so for unclear reasons). No overt paranoid delusions, her delayed response may be signs of thought blocking and underlying psychosis. She is in agreement to receive treatment and complete work up to also assess her memory and cognition. We discussed restarting abilify, which was started while she was in the ED- will titrate dose. 08/[address] shows atrophy. pending MOCA/ACL. continue abilify but may increase and add low dose ativan. 08/26 will increased abilify to 15mg po daily. will add low dose ativan- wonder if it helps with delayed response, and some staring. 08/27: T102, URI Sx. influenza A POS. UA NEG. tamiflu, droplet precautions. increase HS ativan to 1 mg. otherwise continue prior mgmt. 08/28: no requests or complaints, appears drained, resting in bed. continue current mgmt. 08/29- continue to present febrile, this AM 101.F, O2sat on RA 94%, limited oral intake yesterday, ordered labs to monitor dehydration. pt after encouragement, drinking cup of orange juice, some water, bananas and saltine crackers. pending labs. 08/30 continue tx. afebrile today for most of the day. O2sat on RA 96%. less cough, no signs of respiratory distress. taking medications. 08/31 family meeting- discussed filing for guardianship, she is currently taking medications. no longer symptomatic in terms of Influenza. afebrile, no respiratory distress. 09/01 continue tx. will complete guardianship papers 09/02 guardianship filed. continue tx. started on namenda target abulia. abilify increased to 20mg po daily. 09/03 continue tx. 09/04 continue tx. 09/05 continue tx. 09/06 continue tx. 09/07 continue tx. 09/08: stable. no questions or complaints. continue current mgmt. 09/09 will increase abilify to 30mg po daily. 09/10/2024 Question if increase Abilify is worsening blunting and bulimia 09/11/2024 Continue Abilify might consider Latuda Provigil unclear what patient's baseline is 09/12 continue tx. 09/13 continue tx. 09/14 continue tx. 09/15 continue tx. 09/16 continue tx. VS stable. 09/17 Patient presents as suspicious and guarded with underwriter solicitation director. Patient kind of walking out of her room but at the side of underwriter solicitation director, backs up into her room, then walks out a little then backs up a little... She is vague with underwriter solicitation director but denies any psychiatric symptoms. -taking meds 09/18 paranoid, guarded; says yes to dysuria. Started on Ceftin for UTI 09/20 keep same treatment 09/22 keep same treatment 09/23 keep same treatment 09/24: continue current mgmt. stable, safe. no behavioral concerns. 09/25: no change from yesterday. 09/26 continue tx. awaiting guardianship 09/27 continue tx. 09/28 continue tx. 09/29 continue tx. 09/30 continue tx. 10/02 Nursing reports that patient was upset today because she urinated on herself . She said I do not want to live like this though denied any SI. Patient upset that she often smells like urine. On approach however as underwriter solicitation director inquired, she said that today was an easier day.. and Had no concerns. 10/03: stable, no change in presentation. continue current mgmt. 10/04: stable. continue current mgmt. awaiting SNF placement and guardian. 10/05: no change in presentation or plan. 10/06: observed eating in milieu, appeared to have finished her plate and was in good spirits. continue current mgmt. Reason for continued inpatient stay Substantial Risk for: inability to function and rapid decompensation Time Spent With Patient Time: Total time managing care of this patient today ____ minutes.
[2024-10-06 20:00] VITALS: BP 121/57; PULSE 81; RESP 18; TEMP 36; O2SAT 99
[2024-10-07] MEDS: ARIPiprazole 30 MG TABLET PO (08:43)
[2024-10-07 09:57] VITALS: BP 121/56; PULSE 96; RESP 18; TEMP 36.1; O2SAT 97
--- NOTE | 2024-10-07 11:39 | P.PNPSI_ITS ---
Subjective Subjective Date of Service: 10/07/24 Reason For Visit: bipolar 1 disorder current or most recent epi Interim History: Patient somewhat flat and withdrawn taking in food and fluids not overly combative or agitated Patient pending guardianship pad visit from service net team this week Mental Status Exam Mental Status Exam Narrative: Appearance: adequately dressed and groomed Behavior: guarded, cautious Psychomotor: some retardation Speech: Sparse delayed TP: [place] TC: no questions or complaints poverty of content Mood: good Affect: flexible SI: none expressed HI: none expressed VH/AH: none evidenced Delusions: no overt delusional content noted or reported Insight/judgment: impaired . Diagnostics Vital Signs (24Hr): Vital Signs - 24 hr 10/06/24 20:00 10/07/24 09:57 Temperature 96.8 F 96.9 F Pulse Rate 81 96 Respiratory Rate 18 18 Blood Pressure 121/57 L 121/56 L Pulse Oximetry 99 97 Oxygen Delivery Method Room Air Room Air BMI result Body Mass Index 21.0 Labs 08/27/24 10:00 08/29/24 17:32 Imaging Radiology Impressions: ITS Impressions Head CT 08/25/24 11:33 IMPRESSION: No acute intracranial abnormality. Electronically signed by: Cj Colunga MD 08/25/2024 12:12 PM [facility] Medications Medications Current Medications Acetaminophen (Acetaminophen 325 Mg Tablet) 650 mg PO Q6H PRN PRN Reason: Headache/Pain, Scale 1-10 Last Admin: 08/30/24 20:35 Dose: 650 mg Al Hydroxide/Mg Hydroxide (Magnesium Hydrox/Alum Hydrox 30 Ml Oral.Susp) 30 ml PO Q6H PRN PRN Reason: Heartburn/Nausea Aripiprazole (Aripiprazole 30 Mg Tablet) 30 mg PO DAILY [facility] Last Admin: 10/07/24 08:43 Dose: 30 mg Benzocaine (Throat Lozenge, Medicated Lozenge) 1 lozenge MUCOUS MEM Q1H PRN PRN Reason: Sore Throat Last Admin: 09/01/24 06:09 Dose: 1 lozenge Guaifenesin/Dextromethorphan (Guaifenesin Dm 200/20/10 Ml 10 Ml Syrup) 10 ml PO Q4H PRN PRN Reason: Cough Last Admin: 08/30/24 05:47 Dose: 10 ml Levothyroxine Sodium (Levothyroxine Sodium 75 Mcg Tablet) 75 mcg PO DAILY@0630 [facility] Last Admin: 10/07/24 05:29 Dose: 75 mcg Lidocaine/Diphenhydr/Alum/Mg/Simeth (Mag&Al/Sim/Diphenhyd/Lidocaine 10 Ml Oral.Susp) 10 ml PO Q6H PRN; Protocol PRN Reason: Painful Gums Last Admin: 08/26/24 13:38 Dose: 10 ml Lorazepam (Lorazepam 0.5 Mg Tablet) 0.5 mg PO BID [facility] Last Admin: 10/07/24 08:42 Dose: 0.5 mg Magnesium Hydroxide (Milk Of Magnesia 30 Ml Oral.Susp) 30 ml PO DAILY PRN PRN Reason: Constipation Memantine (Memantine Hcl 5 Mg Tablet) 5 mg PO DAILY [facility] Last Admin: 10/07/24 08:43 Dose: 5 mg Olanzapine (Olanzapine Odt 10 Mg Tab.Rapdis) 5 mg TRANSLINGU Q6H PRN PRN Reason: Agitation Pravastatin Sodium (Pravastatin Sodium 40 Mg Tablet) 40 mg PO BEDTIME [facility] Last Admin: 10/06/24 19:59 Dose: 40 mg Vitamin D (Cholecalciferol (Vitamin D3) 25 Mcg Tablet) 50 mcg PO DAILY [facility] Last Admin: 10/07/24 08:41 Dose: 50 mcg Allergies Allergies Allergy/AdvReac Type Severity Reaction Status Date / Time meperidine [From Demerol] AdvReac Intermediate Rash Verified 08/23/24 19:34 morphine AdvReac Intermediate Rash Verified 08/23/24 19:35 Sulfa (Sulfonamide AdvReac Intermediate Rash Verified 08/23/24 19:36 Antibiotics) Assessment & Plan Assessment & Plan (1) Schizoaffective disorder: Status: Acute Code(s): F25.9 - Schizoaffective disorder, unspecified Plan Ms. Thomas is a 69 year-old woman with hx of Bipolar Disorder, she currently presents with several symptoms suggestive of negative symptoms seem usually in schizoaffective disorder including constricted affect, abulia (some acknowledgment that she needed to initiate certain activities like going to dentist but still not doing so for unclear reasons). No overt paranoid delusions, her delayed response may be signs of thought blocking and underlying psychosis. She is in agreement to receive treatment and complete work up to also assess her memory and cognition. We discussed restarting abilify, which was started while she was in the ED- will titrate dose. 08/[address] shows atrophy. pending MOCA/ACL. continue abilify but may increase and add low dose ativan. 08/26 will increased abilify to 15mg po daily. will add low dose ativan- wonder if it helps with delayed response, and some staring. 08/27: T102, URI Sx. influenza A POS. UA NEG. tamiflu, droplet precautions. increase HS ativan to 1 mg. otherwise continue prior mgmt. 08/28: no requests or complaints, appears drained, resting in bed. continue current mgmt. 08/29- continue to present febrile, this AM 101.F, O2sat on RA 94%, limited oral intake yesterday, ordered labs to monitor dehydration. pt after encouragement, drinking cup of orange juice, some water, bananas and saltine crackers. pending labs. 08/30 continue tx. afebrile today for most of the day. O2sat on RA 96%. less cough, no signs of respiratory distress. taking medications. 08/31 family meeting- discussed filing for guardianship, she is currently taking medications. no longer symptomatic in terms of Influenza. afebrile, no respiratory distress. 09/01 continue tx. will complete guardianship papers 09/02 guardianship filed. continue tx. started on namenda target abulia. abilify increased to 20mg po daily. 09/03 continue tx. 09/04 continue tx. 09/05 continue tx. 09/06 continue tx. 09/07 continue tx. 09/08: stable. no questions or complaints. continue current mgmt. 09/09 will increase abilify to 30mg po daily. 09/10/2024 Question if increase Abilify is worsening blunting and bulimia 09/11/2024 Continue Abilify might consider Latuda Provigil unclear what patient's baseline is 09/12 continue tx. 09/13 continue tx. 09/14 continue tx. 09/15 continue tx. 09/16 continue tx. VS stable. 09/17 Patient presents as suspicious and guarded with account underwriter. Patient kind of walking out of her room but at the side of account underwriter, backs up into her room, then walks out a little then backs up a little... She is vague with account underwriter but denies any psychiatric symptoms. -taking meds 09/18 paranoid, guarded; says yes to dysuria. Started on Ceftin for UTI 09/20 keep same treatment 09/22 keep same treatment 09/23 keep same treatment 09/24: continue current mgmt. stable, safe. no behavioral concerns. 09/25: no change from yesterday. 09/26 continue tx. awaiting guardianship 09/27 continue tx. 09/28 continue tx. 09/29 continue tx. 09/30 continue tx. 10/02 Nursing reports that patient was upset today because she urinated on herself . She said I do not want to live like this though denied any SI. Patient upset that she often smells like urine. On approach however as account underwriter inquired, she said that today was an easier day.. and Had no concerns. 10/03: stable, no change in presentation. continue current mgmt. 10/04: stable. continue current mgmt. awaiting SNF placement and guardian. 10/05: no change in presentation or plan. 10/06: observed eating in milieu, appeared to have finished her plate and was in good spirits. continue current mgmt. 10/07/2024 Patient with no current discharge plan pending guardianship [employer] application. Patient's mood is flat somewhat apathetic but stable. No lower level of care currently available Reason for continued inpatient stay Substantial Risk for: inability to function and rapid decompensation Time Spent With Patient Time: Total time managing care of this patient today ____ minutes.
[2024-10-07 20:00] VITALS: BP 109/64; PULSE 88; RESP 16; TEMP 36.3; O2SAT 96
[2024-10-08 08:45] VITALS: BP 101/55; PULSE 92; RESP 18; TEMP 36.5; O2SAT 96
[2024-10-08] MEDS: ARIPiprazole 30 MG TABLET PO (09:38)
--- NOTE | 2024-10-08 14:02 | HO.PSYCHPN ---
Subjective Subjective Date of Service: 10/08/24 Reason For Visit: bipolar 1 disorder current or most recent epi Interim History: lying in bed, no acute distress. c/o her belongings having gone missing. per RN, the belongings remain in her room. no other complaints or requests. per staff, isolative, withdrawn, incontinent. Mental Status Exam Mental Status Exam Narrative: Appearance: adequately dressed and groomed Behavior: guarded, cautious Psychomotor: some retardation Speech: mostly clear, less latency, minimally spontaneous TP: [place] TC: no questions or complaints Mood: good Affect: flexible SI: none expressed HI: none expressed VH/AH: none evidenced Delusions: no overt delusional content noted or reported Insight/judgment: impaired . Diagnostics Vital Signs (24Hr): Vital Signs - 24 hr 10/07/24 20:00 10/08/24 08:45 Temperature 97.4 F 97.7 F Pulse Rate 88 92 Respiratory Rate 16 18 Blood Pressure 109/64 101/55 L Pulse Oximetry 96 96 Oxygen Delivery Method Room Air Room Air BMI result Body Mass Index 21.0 Labs 08/27/24 10:00 08/29/24 17:32 Imaging Radiology Impressions: ITS Impressions Head CT 08/25/24 11:33 IMPRESSION: No acute intracranial abnormality. Electronically signed by: Cj Colunga MD 08/25/2024 12:12 PM [facility] Medications Medications Current Medications Acetaminophen (Acetaminophen 325 Mg Tablet) 650 mg PO Q6H PRN PRN Reason: Headache/Pain, Scale 1-10 Last Admin: 08/30/24 20:35 Dose: 650 mg Al Hydroxide/Mg Hydroxide (Magnesium Hydrox/Alum Hydrox 30 Ml Oral.Susp) 30 ml PO Q6H PRN PRN Reason: Heartburn/Nausea Aripiprazole (Aripiprazole 30 Mg Tablet) 30 mg PO DAILY [facility] Last Admin: 10/08/24 09:38 Dose: 30 mg Benzocaine (Throat Lozenge, Medicated Lozenge) 1 lozenge MUCOUS MEM Q1H PRN PRN Reason: Sore Throat Last Admin: 09/01/24 06:09 Dose: 1 lozenge Guaifenesin/Dextromethorphan (Guaifenesin Dm 200/20/10 Ml 10 Ml Syrup) 10 ml PO Q4H PRN PRN Reason: Cough Last Admin: 08/30/24 05:47 Dose: 10 ml Levothyroxine Sodium (Levothyroxine Sodium 75 Mcg Tablet) 75 mcg PO DAILY@0630 [facility] Last Admin: 10/08/24 05:30 Dose: 75 mcg Lidocaine/Diphenhydr/Alum/Mg/Simeth (Mag&Al/Sim/Diphenhyd/Lidocaine 10 Ml Oral.Susp) 10 ml PO Q6H PRN; Protocol PRN Reason: Painful Gums Last Admin: 08/26/24 13:38 Dose: 10 ml Lorazepam (Lorazepam 0.5 Mg Tablet) 0.5 mg PO BID [facility] Last Admin: 10/08/24 09:38 Dose: 0.5 mg Magnesium Hydroxide (Milk Of Magnesia 30 Ml Oral.Susp) 30 ml PO DAILY PRN PRN Reason: Constipation Memantine (Memantine Hcl 5 Mg Tablet) 5 mg PO DAILY [facility] Last Admin: 10/08/24 09:38 Dose: 5 mg Olanzapine (Olanzapine Odt 10 Mg Tab.Rapdis) 5 mg TRANSLINGU Q6H PRN PRN Reason: Agitation Pravastatin Sodium (Pravastatin Sodium 40 Mg Tablet) 40 mg PO BEDTIME [facility] Last Admin: 10/07/24 21:43 Dose: 40 mg Vitamin D (Cholecalciferol (Vitamin D3) 25 Mcg Tablet) 50 mcg PO DAILY [facility] Last Admin: 10/08/24 09:38 Dose: 50 mcg Allergies Allergies Allergy/AdvReac Type Severity Reaction Status Date / Time meperidine [From Demerol] AdvReac Intermediate Rash Verified 08/23/24 19:34 morphine AdvReac Intermediate Rash Verified 08/23/24 19:35 Sulfa (Sulfonamide AdvReac Intermediate Rash Verified 08/23/24 19:36 Antibiotics) Assessment & Plan Assessment & Plan (1) Schizoaffective disorder: Status: Acute Code(s): F25.9 - Schizoaffective disorder, unspecified Plan Ms. Thomas is a 69 year-old woman with hx of Bipolar Disorder, she currently presents with several symptoms suggestive of negative symptoms seem usually in schizoaffective disorder including constricted affect, abulia (some acknowledgment that she needed to initiate certain activities like going to dentist but still not doing so for unclear reasons). No overt paranoid delusions, her delayed response may be signs of thought blocking and underlying psychosis. She is in agreement to receive treatment and complete work up to also assess her memory and cognition. We discussed restarting abilify, which was started while she was in the ED- will titrate dose. 08/[address] shows atrophy. pending MOCA/ACL. continue abilify but may increase and add low dose ativan. 08/26 will increased abilify to 15mg po daily. will add low dose ativan- wonder if it helps with delayed response, and some staring. 08/27: T102, URI Sx. influenza A POS. UA NEG. tamiflu, droplet precautions. increase HS ativan to 1 mg. otherwise continue prior mgmt. 08/28: no requests or complaints, appears drained, resting in bed. continue current mgmt. 08/29- continue to present febrile, this AM 101.F, O2sat on RA 94%, limited oral intake yesterday, ordered labs to monitor dehydration. pt after encouragement, drinking cup of orange juice, some water, bananas and saltine crackers. pending labs. 08/30 continue tx. afebrile today for most of the day. O2sat on RA 96%. less cough, no signs of respiratory distress. taking medications. 08/31 family meeting- discussed filing for guardianship, she is currently taking medications. no longer symptomatic in terms of Influenza. afebrile, no respiratory distress. 09/01 continue tx. will complete guardianship papers 09/02 guardianship filed. continue tx. started on namenda target abulia. abilify increased to 20mg po daily. 09/03 continue tx. 09/04 continue tx. 09/05 continue tx. 09/06 continue tx. 09/07 continue tx. 09/08: stable. no questions or complaints. continue current mgmt. 09/09 will increase abilify to 30mg po daily. 09/10/2024 Question if increase Abilify is worsening blunting and bulimia 09/11/2024 Continue Abilify might consider Latuda Provigil unclear what patient's baseline is 09/12 continue tx. 09/13 continue tx. 09/14 continue tx. 09/15 continue tx. 09/16 continue tx. VS stable. 09/17 Patient presents as suspicious and guarded with scientific technical writer. Patient kind of walking out of her room but at the side of scientific technical writer, backs up into her room, then walks out a little then backs up a little... She is vague with scientific technical writer but denies any psychiatric symptoms. -taking meds 09/18 paranoid, guarded; says yes to dysuria. Started on Ceftin for UTI 09/20 keep same treatment 09/22 keep same treatment 09/23 keep same treatment 09/24: continue current mgmt. stable, safe. no behavioral concerns. 09/25: no change from yesterday. 09/26 continue tx. awaiting guardianship 09/27 continue tx. 09/28 continue tx. 09/29 continue tx. 09/30 continue tx. 10/02 Nursing reports that patient was upset today because she urinated on herself . She said I do not want to live like this though denied any SI. Patient upset that she often smells like urine. On approach however as scientific technical writer inquired, she said that today was an easier day.. and Had no concerns. 10/03: stable, no change in presentation. continue current mgmt. 10/04: stable. continue current mgmt. awaiting SNF placement and guardian. 10/05: no change in presentation or plan. 10/06: observed eating in milieu, appeared to have finished her plate and was in good spirits. continue current mgmt. 10/08: c/o her belongings having gone missing. per RN, they remain in her room. no other complaints or requests. continue current mgmt. Reason for continued inpatient stay Substantial Risk for: inability to function Time Spent With Patient Time: Total time managing care of this patient today ____ minutes.
[2024-10-08 20:00] VITALS: BP 113/56; PULSE 79; RESP 18; TEMP 36.9; O2SAT 97
[2024-10-09 08:21] VITALS: BP 110/56; PULSE 91; RESP 18; TEMP 36; O2SAT 97
[2024-10-09] MEDS: ARIPiprazole 30 MG TABLET PO (08:22)
[2024-10-09 20:00] VITALS: BP 122/56; PULSE 83; RESP 16; TEMP 36.6; O2SAT 96
--- NOTE | 2024-10-09 20:00 | HO.PSYCHPN ---
Subjective Subjective Date of Service: 10/09/24 Reason For Visit: bipolar 1 disorder current or most recent epi Interim History: no change in presentation. no questions or complaints. lying supine with neck flexed in bed. per staff, needs stool softener and cream to feet. Mental Status Exam Mental Status Exam Narrative: Appearance: adequately dressed and groomed Behavior: guarded, cautious Psychomotor: some retardation Speech: mostly clear, less latency, minimally spontaneous TP: [place] TC: no questions or complaints Mood: good Affect: flexible SI: none expressed HI: none expressed VH/AH: none evidenced Delusions: no overt delusional content noted or reported Insight/judgment: impaired . Diagnostics Vital Signs (24Hr): Vital Signs - 24 hr 10/09/24 08:21 Temperature 96.8 F Pulse Rate 91 Respiratory Rate 18 Blood Pressure 110/56 L Pulse Oximetry 97 Oxygen Delivery Method Room Air BMI result Body Mass Index 21.0 Labs 08/27/24 10:00 08/29/24 17:32 Imaging Radiology Impressions: ITS Impressions Head CT 08/25/24 11:33 IMPRESSION: No acute intracranial abnormality. Electronically signed by: Cj Colunga MD 08/25/2024 12:12 PM [facility] [place] Medications Medications Current Medications Acetaminophen (Acetaminophen 325 Mg Tablet) 650 mg PO Q6H PRN PRN Reason: Headache/Pain, Scale 1-10 Last Admin: 08/30/24 20:35 Dose: 650 mg Al Hydroxide/Mg Hydroxide (Magnesium Hydrox/Alum Hydrox 30 Ml Oral.Susp) 30 ml PO Q6H PRN PRN Reason: Heartburn/Nausea Aripiprazole (Aripiprazole 30 Mg Tablet) 30 mg PO DAILY [facility] Last Admin: 10/09/24 08:22 Dose: 30 mg Benzocaine (Throat Lozenge, Medicated Lozenge) 1 lozenge MUCOUS MEM Q1H PRN PRN Reason: Sore Throat Last Admin: 09/01/24 06:09 Dose: 1 lozenge Docusate Sodium (Docusate Sodium 100 Mg Capsule) 100 mg PO BID [facility] Last Admin: 10/09/24 12:14 Dose: 100 mg Guaifenesin/Dextromethorphan (Guaifenesin Dm 200/20/10 Ml 10 Ml Syrup) 10 ml PO Q4H PRN PRN Reason: Cough Last Admin: 08/30/24 05:47 Dose: 10 ml Lactic Acid (Ammonium Lactate 12 % Lotion 226 Gm Bottle) 1 appl TOPICAL BID [facility]; Protocol Last Admin: 10/09/24 12:13 Dose: Not Given Levothyroxine Sodium (Levothyroxine Sodium 75 Mcg Tablet) 75 mcg PO DAILY@0630 [facility] Last Admin: 10/09/24 05:27 Dose: 75 mcg Lidocaine/Diphenhydr/Alum/Mg/Simeth (Mag&Al/Sim/Diphenhyd/Lidocaine 10 Ml Oral.Susp) 10 ml PO Q6H PRN; Protocol PRN Reason: Painful Gums Last Admin: 08/26/24 13:38 Dose: 10 ml Lorazepam (Lorazepam 0.5 Mg Tablet) 0.5 mg PO BID [facility] Last Admin: 10/09/24 08:22 Dose: 0.5 mg Magnesium Hydroxide (Milk Of Magnesia 30 Ml Oral.Susp) 30 ml PO DAILY PRN PRN Reason: Constipation Memantine (Memantine Hcl 5 Mg Tablet) 5 mg PO DAILY [facility] Last Admin: 10/09/24 08:22 Dose: 5 mg Olanzapine (Olanzapine Odt 10 Mg Tab.Rapdis) 5 mg TRANSLINGU Q6H PRN PRN Reason: Agitation Pravastatin Sodium (Pravastatin Sodium 40 Mg Tablet) 40 mg PO BEDTIME [facility] Last Admin: 10/08/24 20:59 Dose: 40 mg Vitamin D (Cholecalciferol (Vitamin D3) 25 Mcg Tablet) 50 mcg PO DAILY [facility] Last Admin: 10/09/24 08:22 Dose: 50 mcg Allergies Allergies Allergy/AdvReac Type Severity Reaction Status Date / Time meperidine [From Demerol] AdvReac Intermediate Rash Verified 08/23/24 19:34 morphine AdvReac Intermediate Rash Verified 08/23/24 19:35 Sulfa (Sulfonamide AdvReac Intermediate Rash Verified 08/23/24 19:36 Antibiotics) Assessment & Plan Assessment & Plan (1) Schizoaffective disorder: Status: Acute Code(s): F25.9 - Schizoaffective disorder, unspecified Plan Ms. Thomas is a 69 year-old woman with hx of Bipolar Disorder, she currently presents with several symptoms suggestive of negative symptoms seem usually in schizoaffective disorder including constricted affect, abulia (some acknowledgment that she needed to initiate certain activities like going to dentist but still not doing so for unclear reasons). No overt paranoid delusions, her delayed response may be signs of thought blocking and underlying psychosis. She is in agreement to receive treatment and complete work up to also assess her memory and cognition. We discussed restarting abilify, which was started while she was in the ED- will titrate dose. 08/[address] shows atrophy. pending MOCA/ACL. continue abilify but may increase and add low dose ativan. 08/26 will increased abilify to 15mg po daily. will add low dose ativan- wonder if it helps with delayed response, and some staring. 08/27: T102, URI Sx. influenza A POS. UA NEG. tamiflu, droplet precautions. increase HS ativan to 1 mg. otherwise continue prior mgmt. 08/28: no requests or complaints, appears drained, resting in bed. continue current mgmt. 08/29- continue to present febrile, this AM 101.F, O2sat on RA 94%, limited oral intake yesterday, ordered labs to monitor dehydration. pt after encouragement, drinking cup of orange juice, some water, bananas and saltine crackers. pending labs. 08/30 continue tx. afebrile today for most of the day. O2sat on RA 96%. less cough, no signs of respiratory distress. taking medications. 08/31 family meeting- discussed filing for guardianship, she is currently taking medications. no longer symptomatic in terms of Influenza. afebrile, no respiratory distress. 09/01 continue tx. will complete guardianship papers 09/02 guardianship filed. continue tx. started on namenda target abulia. abilify increased to 20mg po daily. 09/03 continue tx. 09/04 continue tx. 09/05 continue tx. 09/06 continue tx. 09/07 continue tx. 09/08: stable. no questions or complaints. continue current mgmt. 09/09 will increase abilify to 30mg po daily. 09/10/2024 Question if increase Abilify is worsening blunting and bulimia 09/11/2024 Continue Abilify might consider Latuda Provigil unclear what patient's baseline is 09/12 continue tx. 09/13 continue tx. 09/14 continue tx. 09/15 continue tx. 09/16 continue tx. VS stable. 09/17 Patient presents as suspicious and guarded with publicity writer. Patient kind of walking out of her room but at the side of publicity writer, backs up into her room, then walks out a little then backs up a little... She is vague with publicity writer but denies any psychiatric symptoms. -taking meds 09/18 paranoid, guarded; says yes to dysuria. Started on Ceftin for UTI 09/20 keep same treatment 09/22 keep same treatment 09/23 keep same treatment 09/24: continue current mgmt. stable, safe. no behavioral concerns. 09/25: no change from yesterday. 09/26 continue tx. awaiting guardianship 09/27 continue tx. 09/28 continue tx. 09/29 continue tx. 09/30 continue tx. 10/02 Nursing reports that patient was upset today because she urinated on herself . She said I do not want to live like this though denied any SI. Patient upset that she often smells like urine. On approach however as publicity writer inquired, she said that today was an easier day.. and Had no concerns. 10/03: stable, no change in presentation. continue current mgmt. 10/04: stable. continue current mgmt. awaiting SNF placement and guardian. 10/05: no change in presentation or plan. 10/06: observed eating in milieu, appeared to have finished her plate and was in good spirits. continue current mgmt. 10/07/2024 Patient with no current discharge plan pending guardianship [employer] application. Patient's mood is flat somewhat apathetic but stable. No lower level of care currently available. 10/09: no change in presentation. colace 100 BID and lac hydrin to feet added. Reason for continued inpatient stay Substantial Risk for: inability to function Time Spent With Patient Time: Total time managing care of this patient today ____ minutes.
[2024-10-10 08:00] VITALS: BP 121/72; PULSE 102; RESP 18; TEMP 36.6; O2SAT 95
[2024-10-10] MEDS: ARIPiprazole 30 MG TABLET PO (08:55)
--- NOTE | 2024-10-10 16:23 | HO.PSYCHPN ---
Subjective Subjective Date of Service: 10/10/24 Reason For Visit: bipolar 1 disorder current or most recent epi Interim History: Patient apathetic no questions or complaints. Patient generally flat a motivational Medication Compliance: Yes Mental Status Exam Mental Status Exam Narrative: Appearance: adequately dressed and groomed Behavior: guarded, cautious Psychomotor: some retardation Speech: mostly clear, less latency, minimally spontaneous TP: [place] TC: no questions or complaints Mood: good Affect: Flat SI: none expressed HI: none expressed VH/AH: none evidenced Delusions: no overt delusional content noted or reported Insight/judgment: impaired . Diagnostics Vital Signs (24Hr): Vital Signs - 24 hr 10/09/24 20:00 10/10/24 08:00 Temperature 97.9 F 97.9 F Pulse Rate 83 102 H Respiratory Rate 16 18 Blood Pressure 122/56 L 121/72 Pulse Oximetry 96 95 Oxygen Delivery Method Room Air Room Air BMI result Body Mass Index 21.0 Labs 08/27/24 10:00 08/29/24 17:32 Imaging Radiology Impressions: ITS Impressions Head CT 08/25/24 11:33 IMPRESSION: No acute intracranial abnormality. Electronically signed by: Cj Colunga MD 08/25/2024 12:12 PM [facility] [place] Medications Current Medications Acetaminophen (Acetaminophen 325 Mg Tablet) 650 mg PO Q6H PRN PRN Reason: Headache/Pain, Scale 1-10 Last Admin: 08/30/24 20:35 Dose: 650 mg Al Hydroxide/Mg Hydroxide (Magnesium Hydrox/Alum Hydrox 30 Ml Oral.Susp) 30 ml PO Q6H PRN PRN Reason: Heartburn/Nausea Aripiprazole (Aripiprazole 30 Mg Tablet) 30 mg PO DAILY [facility] Last Admin: 10/10/24 08:55 Dose: 30 mg Benzocaine (Throat Lozenge, Medicated Lozenge) 1 lozenge MUCOUS MEM Q1H PRN PRN Reason: Sore Throat Last Admin: 09/01/24 06:09 Dose: 1 lozenge Docusate Sodium (Docusate Sodium 100 Mg Capsule) 100 mg PO BID [facility] Last Admin: 10/10/24 08:54 Dose: 100 mg Guaifenesin/Dextromethorphan (Guaifenesin Dm 200/20/10 Ml 10 Ml Syrup) 10 ml PO Q4H PRN PRN Reason: Cough Last Admin: 08/30/24 05:47 Dose: 10 ml Lactic Acid (Ammonium Lactate 12 % Lotion 226 Gm Bottle) 1 appl TOPICAL BID [facility]; Protocol Last Admin: 10/10/24 09:23 Dose: Not Given Levothyroxine Sodium (Levothyroxine Sodium 75 Mcg Tablet) 75 mcg PO DAILY@0630 [facility] Last Admin: 10/10/24 06:00 Dose: 75 mcg Lidocaine/Diphenhydr/Alum/Mg/Simeth (Mag&Al/Sim/Diphenhyd/Lidocaine 10 Ml Oral.Susp) 10 ml PO Q6H PRN; Protocol PRN Reason: Painful Gums Last Admin: 08/26/24 13:38 Dose: 10 ml Lorazepam (Lorazepam 0.5 Mg Tablet) 0.5 mg PO BID [facility] Last Admin: 10/10/24 08:55 Dose: 0.5 mg Magnesium Hydroxide (Milk Of Magnesia 30 Ml Oral.Susp) 30 ml PO DAILY PRN PRN Reason: Constipation Memantine (Memantine Hcl 5 Mg Tablet) 5 mg PO DAILY [facility] Last Admin: 10/10/24 08:55 Dose: 5 mg Olanzapine (Olanzapine Odt 10 Mg Tab.Rapdis) 5 mg TRANSLINGU Q6H PRN PRN Reason: Agitation Pravastatin Sodium (Pravastatin Sodium 40 Mg Tablet) 40 mg PO BEDTIME [facility] Last Admin: 10/09/24 21:17 Dose: 40 mg Vitamin D (Cholecalciferol (Vitamin D3) 25 Mcg Tablet) 50 mcg PO DAILY [facility] Last Admin: 10/10/24 08:55 Dose: 50 mcg Allergies Allergies Allergy/AdvReac Type Severity Reaction Status Date / Time meperidine [From Demerol] AdvReac Intermediate Rash Verified 08/23/24 19:34 morphine AdvReac Intermediate Rash Verified 08/23/24 19:35 Sulfa (Sulfonamide AdvReac Intermediate Rash Verified 08/23/24 19:36 Antibiotics) Assessment & Plan Assessment & Plan (1) Schizoaffective disorder: Status: Acute Code(s): F25.9 - Schizoaffective disorder, unspecified Plan Ms. Thomas is a 69 year-old woman with hx of Bipolar Disorder, she currently presents with several symptoms suggestive of negative symptoms seem usually in schizoaffective disorder including constricted affect, abulia (some acknowledgment that she needed to initiate certain activities like going to dentist but still not doing so for unclear reasons). No overt paranoid delusions, her delayed response may be signs of thought blocking and underlying psychosis. She is in agreement to receive treatment and complete work up to also assess her memory and cognition. We discussed restarting abilify, which was started while she was in the ED- will titrate dose. 08/[address] shows atrophy. pending MOCA/ACL. continue abilify but may increase and add low dose ativan. 08/26 will increased abilify to 15mg po daily. will add low dose ativan- wonder if it helps with delayed response, and some staring. 08/27: T102, URI Sx. influenza A POS. UA NEG. tamiflu, droplet precautions. increase HS ativan to 1 mg. otherwise continue prior mgmt. 08/28: no requests or complaints, appears drained, resting in bed. continue current mgmt. 08/29- continue to present febrile, this AM 101.F, O2sat on RA 94%, limited oral intake yesterday, ordered labs to monitor dehydration. pt after encouragement, drinking cup of orange juice, some water, bananas and saltine crackers. pending labs. 08/30 continue tx. afebrile today for most of the day. O2sat on RA 96%. less cough, no signs of respiratory distress. taking medications. 08/31 family meeting- discussed filing for guardianship, she is currently taking medications. no longer symptomatic in terms of Influenza. afebrile, no respiratory distress. 09/01 continue tx. will complete guardianship papers 09/02 guardianship filed. continue tx. started on namenda target abulia. abilify increased to 20mg po daily. 09/03 continue tx. 09/04 continue tx. 09/05 continue tx. 09/06 continue tx. 09/07 continue tx. 09/08: stable. no questions or complaints. continue current mgmt. 09/09 will increase abilify to 30mg po daily. 09/10/2024 Question if increase Abilify is worsening blunting and bulimia 09/11/2024 Continue Abilify might consider Latuda Provigil unclear what patient's baseline is 09/12 continue tx. 09/13 continue tx. 09/14 continue tx. 09/15 continue tx. 09/16 continue tx. VS stable. 09/17 Patient presents as suspicious and guarded with caption writer. Patient kind of walking out of her room but at the side of caption writer, backs up into her room, then walks out a little then backs up a little... She is vague with caption writer but denies any psychiatric symptoms. -taking meds 09/18 paranoid, guarded; says yes to dysuria. Started on Ceftin for UTI 09/20 keep same treatment 09/22 keep same treatment 09/23 keep same treatment 09/24: continue current mgmt. stable, safe. no behavioral concerns. 09/25: no change from yesterday. 09/26 continue tx. awaiting guardianship 09/27 continue tx. 09/28 continue tx. 09/29 continue tx. 09/30 continue tx. 10/02 Nursing reports that patient was upset today because she urinated on herself . She said I do not want to live like this though denied any SI. Patient upset that she often smells like urine. On approach however as caption writer inquired, she said that today was an easier day.. and Had no concerns. 10/03: stable, no change in presentation. continue current mgmt. 10/04: stable. continue current mgmt. awaiting SNF placement and guardian. 10/05: no change in presentation or plan. 10/06: observed eating in milieu, appeared to have finished her plate and was in good spirits. continue current mgmt. 10/07/2024 Patient with no current discharge plan pending guardianship [employer] application. Patient's mood is flat somewhat apathetic but stable. No lower level of care currently available. 10/09: no change in presentation. colace 100 BID and lac hydrin to feet added. 10/10/2024 Patient essentially stable no change no lower level of care available for discharge discharge planning continues Reason for continued inpatient stay Substantial Risk for: rapid decompensation Time Spent With Patient Time: Total time managing care of this patient today ____ minutes.
[2024-10-10 20:00] VITALS: BP 121/55; PULSE 93; RESP 18; TEMP 36.8; O2SAT 95
[2024-10-11 08:00] VITALS: BP 129/68; PULSE 102; RESP 16; TEMP 36.1; O2SAT 99
[2024-10-11] MEDS: ARIPiprazole 30 MG TABLET PO (08:45)
[2024-10-11] MEDS: Ammonium Lactate 12 % Lotion 226 GM BOTTLE 1 APPL TOPICAL (10:29)
[2024-10-11 20:00] VITALS: BP 102/61; PULSE 80; RESP 16; TEMP 36.6; O2SAT 97
--- NOTE | 2024-10-11 22:16 | P.PNPSI_ITS ---
Subjective Subjective Date of Service: 10/11/24 Reason For Visit: bipolar 1 disorder current or most recent epi Subjective Notes: Conditional Voluntary Interim History: Patient calm not overly agitated or combative. Appears somewhat apathetic Mental Status Exam Mental Status Exam Narrative: Appearance: adequately dressed and groomed Behavior: guarded, cautious Psychomotor: some retardation Speech: mostly clear, less latency, minimally spontaneous TP: [place] TC: no questions or complaints Mood: good Affect: Flat SI: none expressed HI: none expressed VH/AH: none evidenced Delusions: no overt delusional content noted or reported Insight/judgment: impaired . Diagnostics Vital Signs (24Hr): Vital Signs - 24 hr 10/11/24 08:00 Temperature 97 F Pulse Rate 102 H Respiratory Rate 16 Blood Pressure 129/68 Pulse Oximetry 99 Oxygen Delivery Method Room Air BMI result Body Mass Index 21.0 Labs 08/27/24 10:00 08/29/24 17:32 Imaging Radiology Impressions: ITS Impressions Head CT 08/25/24 11:33 IMPRESSION: No acute intracranial abnormality. Electronically signed by: Cj Colunga MD 08/25/2024 12:12 PM [facility] Medications Medications Current Medications Acetaminophen (Acetaminophen 325 Mg Tablet) 650 mg PO Q6H PRN PRN Reason: Headache/Pain, Scale 1-10 Last Admin: 10/11/24 20:15 Dose: 650 mg Al Hydroxide/Mg Hydroxide (Magnesium Hydrox/Alum Hydrox 30 Ml Oral.Susp) 30 ml PO Q6H PRN PRN Reason: Heartburn/Nausea Aripiprazole (Aripiprazole 30 Mg Tablet) 30 mg PO DAILY [facility] Last Admin: 10/11/24 08:45 Dose: 30 mg Benzocaine (Throat Lozenge, Medicated Lozenge) 1 lozenge MUCOUS MEM Q1H PRN PRN Reason: Sore Throat Last Admin: 09/01/24 06:09 Dose: 1 lozenge Docusate Sodium (Docusate Sodium 100 Mg Capsule) 100 mg PO BID [facility] Last Admin: 10/11/24 20:15 Dose: 100 mg Guaifenesin/Dextromethorphan (Guaifenesin Dm 200/20/10 Ml 10 Ml Syrup) 10 ml PO Q4H PRN PRN Reason: Cough Last Admin: 08/30/24 05:47 Dose: 10 ml Lactic Acid (Ammonium Lactate 12 % Lotion 226 Gm Bottle) 1 appl TOPICAL BID [facility]; Protocol Last Admin: 10/11/24 20:17 Dose: Not Given Levothyroxine Sodium (Levothyroxine Sodium 75 Mcg Tablet) 75 mcg PO DAILY@0630 [facility] Last Admin: 10/11/24 06:10 Dose: 75 mcg Lidocaine/Diphenhydr/Alum/Mg/Simeth (Mag&Al/Sim/Diphenhyd/Lidocaine 10 Ml Oral.Susp) 10 ml PO Q6H PRN; Protocol PRN Reason: Painful Gums Last Admin: 08/26/24 13:38 Dose: 10 ml Lorazepam (Lorazepam 0.5 Mg Tablet) 0.5 mg PO BID [facility] Last Admin: 10/11/24 20:14 Dose: 0.5 mg Magnesium Hydroxide (Milk Of Magnesia 30 Ml Oral.Susp) 30 ml PO DAILY PRN PRN Reason: Constipation Memantine (Memantine Hcl 5 Mg Tablet) 5 mg PO DAILY [facility] Last Admin: 10/11/24 08:45 Dose: 5 mg Olanzapine (Olanzapine Odt 10 Mg Tab.Rapdis) 5 mg TRANSLINGU Q6H PRN PRN Reason: Agitation Pravastatin Sodium (Pravastatin Sodium 40 Mg Tablet) 40 mg PO BEDTIME [facility] Last Admin: 10/11/24 20:14 Dose: 40 mg Vitamin D (Cholecalciferol (Vitamin D3) 25 Mcg Tablet) 50 mcg PO DAILY [facility] Last Admin: 10/11/24 08:45 Dose: 50 mcg Allergies Allergies Allergy/AdvReac Type Severity Reaction Status Date / Time meperidine [From Demerol] AdvReac Intermediate Rash Verified 08/23/24 19:34 morphine AdvReac Intermediate Rash Verified 08/23/24 19:35 Sulfa (Sulfonamide AdvReac Intermediate Rash Verified 08/23/24 19:36 Antibiotics) Assessment & Plan Assessment & Plan (1) Schizoaffective disorder: Status: Acute Code(s): F25.9 - Schizoaffective disorder, unspecified Plan Ms. Thomas is a 69 year-old woman with hx of Bipolar Disorder, she currently presents with several symptoms suggestive of negative symptoms seem usually in schizoaffective disorder including constricted affect, abulia (some acknowledgment that she needed to initiate certain activities like going to dentist but still not doing so for unclear reasons). No overt paranoid delusions, her delayed response may be signs of thought blocking and underlying psychosis. She is in agreement to receive treatment and complete work up to also assess her memory and cognition. We discussed restarting abilify, which was started while she was in the ED- will titrate dose. 08/[address] shows atrophy. pending MOCA/ACL. continue abilify but may increase and add low dose ativan. 08/26 will increased abilify to 15mg po daily. will add low dose ativan- wonder if it helps with delayed response, and some staring. 08/27: T102, URI Sx. influenza A POS. UA NEG. tamiflu, droplet precautions. increase HS ativan to 1 mg. otherwise continue prior mgmt. 08/28: no requests or complaints, appears drained, resting in bed. continue current mgmt. 08/29- continue to present febrile, this AM 101.F, O2sat on RA 94%, limited oral intake yesterday, ordered labs to monitor dehydration. pt after encouragement, drinking cup of orange juice, some water, bananas and saltine crackers. pending labs. 08/30 continue tx. afebrile today for most of the day. O2sat on RA 96%. less cough, no signs of respiratory distress. taking medications. 08/31 family meeting- discussed filing for guardianship, she is currently taking medications. no longer symptomatic in terms of Influenza. afebrile, no respiratory distress. 09/01 continue tx. will complete guardianship papers 09/02 guardianship filed. continue tx. started on namenda target abulia. abilify increased to 20mg po daily. 09/03 continue tx. 09/04 continue tx. 09/05 continue tx. 09/06 continue tx. 09/07 continue tx. 09/08: stable. no questions or complaints. continue current mgmt. 09/09 will increase abilify to 30mg po daily. 09/10/2024 Question if increase Abilify is worsening blunting and bulimia 09/11/2024 Continue Abilify might consider Latuda Provigil unclear what patient's baseline is 09/12 continue tx. 09/13 continue tx. 09/14 continue tx. 09/15 continue tx. 09/16 continue tx. VS stable. 09/17 Patient presents as suspicious and guarded with principal technical writer. Patient kind of walking out of her room but at the side of principal technical writer, backs up into her room, then walks out a little then backs up a little... She is vague with principal technical writer but denies any psychiatric symptoms. -taking meds 09/18 paranoid, guarded; says yes to dysuria. Started on Ceftin for UTI 09/20 keep same treatment 09/22 keep same treatment 09/23 keep same treatment 09/24: continue current mgmt. stable, safe. no behavioral concerns. 09/25: no change from yesterday. 09/26 continue tx. awaiting guardianship 09/27 continue tx. 09/28 continue tx. 09/29 continue tx. 09/30 continue tx. 10/02 Nursing reports that patient was upset today because she urinated on herself . She said I do not want to live like this though denied any SI. Patient upset that she often smells like urine. On approach however as principal technical writer inquired, she said that today was an easier day.. and Had no concerns. 10/03: stable, no change in presentation. continue current mgmt. 10/04: stable. continue current mgmt. awaiting SNF placement and guardian. 10/05: no change in presentation or plan. 10/06: observed eating in milieu, appeared to have finished her plate and was in good spirits. continue current mgmt. 10/07/2024 Patient with no current discharge plan pending guardianship [employer] application. Patient's mood is flat somewhat apathetic but stable. No lower level of care currently available. 10/09: no change in presentation. colace 100 BID and lac hydrin to feet added. 10/10/2024 Patient essentially stable no change no lower level of care available for discharge discharge planning continues 10/11/2024 Continue plan of care no less restrictive place to discharge Reason for continued inpatient stay Substantial Risk for: inability to function and rapid decompensation Time Spent With Patient Time: Total time managing care of this patient today ____ minutes.
[2024-10-12 08:32] VITALS: BP 114/58; PULSE 99; RESP 20; TEMP 36.3; O2SAT 95
[2024-10-12] MEDS: ARIPiprazole 30 MG TABLET PO (08:36)
[2024-10-12] MEDS: Ammonium Lactate 12 % Lotion 226 GM BOTTLE 1 APPL TOPICAL ×2 (08:38→21:19)
--- NOTE | 2024-10-12 12:27 | P.PNPSI_ITS ---
Subjective Subjective Date of Service: 10/12/24 Reason For Visit: bipolar 1 disorder current or most recent epi Interim History: no change in presentation, aside from allowing head to rest on double pillow. no requests or complaints. per staff, no change in presentation, no issues. Mental Status Exam Mental Status Exam Narrative: Appearance: adequately dressed and groomed Behavior: guarded, cautious Psychomotor: some retardation Speech: mostly clear, less latency, minimally spontaneous TP: [place] TC: no questions or complaints Mood: good Affect: Flat SI: none expressed HI: none expressed VH/AH: none evidenced Delusions: no overt delusional content noted or reported Insight/judgment: impaired . Diagnostics Vital Signs (24Hr): Vital Signs - 24 hr 10/11/24 20:00 10/12/24 08:32 Temperature 98 F 97.3 F Pulse Rate 80 99 Respiratory Rate 16 20 Blood Pressure 102/61 114/58 L Pulse Oximetry 97 95 Oxygen Delivery Method Room Air Room Air BMI result Body Mass Index 21.0 Labs 08/27/24 10:00 08/29/24 17:32 Imaging Radiology Impressions: ITS Impressions Head CT 08/25/24 11:33 IMPRESSION: No acute intracranial abnormality. Electronically signed by: Cj Colunga MD 08/25/2024 12:12 PM [facility] Medications Medications Current Medications Acetaminophen (Acetaminophen 325 Mg Tablet) 650 mg PO Q6H PRN PRN Reason: Headache/Pain, Scale 1-10 Last Admin: 10/11/24 20:15 Dose: 650 mg Al Hydroxide/Mg Hydroxide (Magnesium Hydrox/Alum Hydrox 30 Ml Oral.Susp) 30 ml PO Q6H PRN PRN Reason: Heartburn/Nausea Aripiprazole (Aripiprazole 30 Mg Tablet) 30 mg PO DAILY [facility] Last Admin: 10/12/24 08:36 Dose: 30 mg Benzocaine (Throat Lozenge, Medicated Lozenge) 1 lozenge MUCOUS MEM Q1H PRN PRN Reason: Sore Throat Last Admin: 09/01/24 06:09 Dose: 1 lozenge Docusate Sodium (Docusate Sodium 100 Mg Capsule) 100 mg PO BID [facility] Last Admin: 10/12/24 08:37 Dose: 100 mg Guaifenesin/Dextromethorphan (Guaifenesin Dm 200/20/10 Ml 10 Ml Syrup) 10 ml PO Q4H PRN PRN Reason: Cough Last Admin: 08/30/24 05:47 Dose: 10 ml Lactic Acid (Ammonium Lactate 12 % Lotion 226 Gm Bottle) 1 appl TOPICAL BID [facility]; Protocol Last Admin: 10/12/24 08:38 Dose: 1 appl Levothyroxine Sodium (Levothyroxine Sodium 75 Mcg Tablet) 75 mcg PO DAILY@0630 [facility] Last Admin: 10/12/24 05:53 Dose: 75 mcg Lidocaine/Diphenhydr/Alum/Mg/Simeth (Mag&Al/Sim/Diphenhyd/Lidocaine 10 Ml Oral.Susp) 10 ml PO Q6H PRN; Protocol PRN Reason: Painful Gums Last Admin: 08/26/24 13:38 Dose: 10 ml Lorazepam (Lorazepam 0.5 Mg Tablet) 0.5 mg PO BID [facility] Last Admin: 10/12/24 08:36 Dose: 0.5 mg Magnesium Hydroxide (Milk Of Magnesia 30 Ml Oral.Susp) 30 ml PO DAILY PRN PRN Reason: Constipation Memantine (Memantine Hcl 5 Mg Tablet) 5 mg PO DAILY [facility] Last Admin: 10/12/24 08:36 Dose: 5 mg Olanzapine (Olanzapine Odt 10 Mg Tab.Rapdis) 5 mg TRANSLINGU Q6H PRN PRN Reason: Agitation Pravastatin Sodium (Pravastatin Sodium 40 Mg Tablet) 40 mg PO BEDTIME [facility] Last Admin: 10/11/24 20:14 Dose: 40 mg Vitamin D (Cholecalciferol (Vitamin D3) 25 Mcg Tablet) 50 mcg PO DAILY [facility] Last Admin: 10/12/24 08:37 Dose: 50 mcg Allergies Allergies Allergy/AdvReac Type Severity Reaction Status Date / Time meperidine [From Demerol] AdvReac Intermediate Rash Verified 08/23/24 19:34 morphine AdvReac Intermediate Rash Verified 08/23/24 19:35 Sulfa (Sulfonamide AdvReac Intermediate Rash Verified 08/23/24 19:36 Antibiotics) Assessment & Plan Assessment & Plan (1) Schizoaffective disorder: Status: Acute Code(s): F25.9 - Schizoaffective disorder, unspecified Plan Ms. Thomas is a 69 year-old woman with hx of Bipolar Disorder, she currently presents with several symptoms suggestive of negative symptoms seem usually in schizoaffective disorder including constricted affect, abulia (some acknowledgment that she needed to initiate certain activities like going to dentist but still not doing so for unclear reasons). No overt paranoid delusions, her delayed response may be signs of thought blocking and underlying psychosis. She is in agreement to receive treatment and complete work up to also assess her memory and cognition. We discussed restarting abilify, which was started while she was in the ED- will titrate dose. 08/[address] shows atrophy. pending MOCA/ACL. continue abilify but may increase and add low dose ativan. 08/26 will increased abilify to 15mg po daily. will add low dose ativan- wonder if it helps with delayed response, and some staring. 08/27: T102, URI Sx. influenza A POS. UA NEG. tamiflu, droplet precautions. increase HS ativan to 1 mg. otherwise continue prior mgmt. 08/28: no requests or complaints, appears drained, resting in bed. continue current mgmt. 08/29- continue to present febrile, this AM 101.F, O2sat on RA 94%, limited oral intake yesterday, ordered labs to monitor dehydration. pt after encouragement, drinking cup of orange juice, some water, bananas and saltine crackers. pending labs. 08/30 continue tx. afebrile today for most of the day. O2sat on RA 96%. less cough, no signs of respiratory distress. taking medications. 08/31 family meeting- discussed filing for guardianship, she is currently taking medications. no longer symptomatic in terms of Influenza. afebrile, no respiratory distress. 09/01 continue tx. will complete guardianship papers 09/02 guardianship filed. continue tx. started on namenda target abulia. abilify increased to 20mg po daily. 09/03 continue tx. 09/04 continue tx. 09/05 continue tx. 09/06 continue tx. 09/07 continue tx. 09/08: stable. no questions or complaints. continue current mgmt. 09/09 will increase abilify to 30mg po daily. 09/10/2024 Question if increase Abilify is worsening blunting and bulimia 09/11/2024 Continue Abilify might consider Latuda Provigil unclear what patient's baseline is 09/12 continue tx. 09/13 continue tx. 09/14 continue tx. 09/15 continue tx. 09/16 continue tx. VS stable. 09/17 Patient presents as suspicious and guarded with pattern chart writer. Patient kind of walking out of her room but at the side of pattern chart writer, backs up into her room, then walks out a little then backs up a little... She is vague with pattern chart writer but denies any psychiatric symptoms. -taking meds 09/18 paranoid, guarded; says yes to dysuria. Started on Ceftin for UTI 09/20 keep same treatment 09/22 keep same treatment 09/23 keep same treatment 09/24: continue current mgmt. stable, safe. no behavioral concerns. 09/25: no change from yesterday. 09/26 continue tx. awaiting guardianship 09/27 continue tx. 09/28 continue tx. 09/29 continue tx. 09/30 continue tx. 10/02 Nursing reports that patient was upset today because she urinated on herself . She said I do not want to live like this though denied any SI. Patient upset that she often smells like urine. On approach however as pattern chart writer inquired, she said that today was an easier day.. and Had no concerns. 10/03: stable, no change in presentation. continue current mgmt. 10/04: stable. continue current mgmt. awaiting SNF placement and guardian. 10/05: no change in presentation or plan. 10/06: observed eating in milieu, appeared to have finished her plate and was in good spirits. continue current mgmt. 10/07/2024 Patient with no current discharge plan pending guardianship Reactivity application. Patient's mood is flat somewhat apathetic but stable. No lower level of care currently available. 10/09: no change in presentation. colace 100 BID and lac hydrin to feet added. 10/10/2024 Patient essentially stable no change no lower level of care available for discharge discharge planning continues 10/11/2024 Continue plan of care no less restrictive place to discharge 10/12: no change in status or plan. Reason for continued inpatient stay Substantial Risk for: inability to function Time Spent With Patient Time: Total time managing care of this patient today ____ minutes.
[2024-10-12 21:58] VITALS: BP 111/56; PULSE 88; RESP 16; TEMP 36.7; O2SAT 97
[2024-10-13 05:54] VITALS: BMI 22.9
[2024-10-13 09:13] VITALS: BMI 21.4
[2024-10-13] MEDS: ARIPiprazole 30 MG TABLET PO (09:25)
[2024-10-13 09:28] VITALS: BP 109/72; PULSE 110; RESP 16; TEMP 36.6; O2SAT 95
[2024-10-13 20:00] VITALS: BP 114/54; PULSE 84; RESP 16; TEMP 36.3; O2SAT 97
--- NOTE | 2024-10-13 22:03 | P.PNPSI_ITS ---
Subjective Subjective Date of Service: 10/13/24 Reason For Visit: bipolar 1 disorder current or most recent epi Interim History: Met with patient; discussed with team; reviewed chart Patient reports that she is doing well tends to be isolative and is comfortable with this. Discharge planning continues to be problematic Medication Compliance: Yes Mental Status Exam Mental Status Exam Narrative: Appearance: constricted affect, in NAD, Behavior: guarded, cautious Psychomotor: some retardation Speech: clear, some latency, minimally spontaneous TP: [place] TC: no questions or complaints poverty of content Mood: good Affect:constricted, anxious SI: Denied HI: Denies VH/AH: denies Delusions: no overt delusional content noted or reported Insight/judgment: impaired Diagnostics Vital Signs (24Hr): Vital Signs - 24 hr 10/13/24 09:28 Temperature 97.9 F Pulse Rate 110 H Respiratory Rate 16 Blood Pressure 109/72 Pulse Oximetry 95 Oxygen Delivery Method Room Air BMI result Body Mass Index 21.4 Labs 08/27/24 10:00 08/29/24 17:32 Imaging Radiology Impressions: ITS Impressions Head CT 08/25/24 11:33 IMPRESSION: No acute intracranial abnormality. Electronically signed by: Cj Colunga MD 08/25/2024 12:12 PM [facility] [place] [place] Medications Medications Current Medications Acetaminophen (Acetaminophen 325 Mg Tablet) 650 mg PO Q6H PRN PRN Reason: Headache/Pain, Scale 1-10 Last Admin: 10/11/24 20:15 Dose: 650 mg Al Hydroxide/Mg Hydroxide (Magnesium Hydrox/Alum Hydrox 30 Ml Oral.Susp) 30 ml PO Q6H PRN PRN Reason: Heartburn/Nausea Aripiprazole (Aripiprazole 30 Mg Tablet) 30 mg PO DAILY [facility] Last Admin: 10/13/24 09:25 Dose: 30 mg Benzocaine (Throat Lozenge, Medicated Lozenge) 1 lozenge MUCOUS MEM Q1H PRN PRN Reason: Sore Throat Last Admin: 09/01/24 06:09 Dose: 1 lozenge Docusate Sodium (Docusate Sodium 100 Mg Capsule) 100 mg PO BID [facility] Last Admin: 10/13/24 09:25 Dose: 100 mg Guaifenesin/Dextromethorphan (Guaifenesin Dm 200/20/10 Ml 10 Ml Syrup) 10 ml PO Q4H PRN PRN Reason: Cough Last Admin: 08/30/24 05:47 Dose: 10 ml Lactic Acid (Ammonium Lactate 12 % Lotion 226 Gm Bottle) 1 appl TOPICAL BID [facility]; Protocol Last Admin: 10/13/24 09:25 Dose: Not Given Levothyroxine Sodium (Levothyroxine Sodium 75 Mcg Tablet) 75 mcg PO DAILY@0630 [facility] Last Admin: 10/13/24 05:53 Dose: 75 mcg Lidocaine/Diphenhydr/Alum/Mg/Simeth (Mag&Al/Sim/Diphenhyd/Lidocaine 10 Ml Oral.Susp) 10 ml PO Q6H PRN; Protocol PRN Reason: Painful Gums Last Admin: 08/26/24 13:38 Dose: 10 ml Lorazepam (Lorazepam 0.5 Mg Tablet) 0.5 mg PO BID [facility] Last Admin: 10/13/24 09:25 Dose: 0.5 mg Magnesium Hydroxide (Milk Of Magnesia 30 Ml Oral.Susp) 30 ml PO DAILY PRN PRN Reason: Constipation Memantine (Memantine Hcl 5 Mg Tablet) 5 mg PO DAILY [facility] Last Admin: 10/13/24 09:25 Dose: 5 mg Olanzapine (Olanzapine Odt 10 Mg Tab.Rapdis) 5 mg TRANSLINGU Q6H PRN PRN Reason: Agitation Pravastatin Sodium (Pravastatin Sodium 40 Mg Tablet) 40 mg PO BEDTIME [facility] Last Admin: 10/12/24 21:14 Dose: 40 mg Vitamin D (Cholecalciferol (Vitamin D3) 25 Mcg Tablet) 50 mcg PO DAILY [facility] Last Admin: 10/13/24 09:25 Dose: 50 mcg Allergies Allergies Allergy/AdvReac Type Severity Reaction Status Date / Time meperidine [From Demerol] AdvReac Intermediate Rash Verified 08/23/24 19:34 morphine AdvReac Intermediate Rash Verified 08/23/24 19:35 Sulfa (Sulfonamide AdvReac Intermediate Rash Verified 08/23/24 19:36 Antibiotics) Assessment & Plan Assessment & Plan (1) Schizoaffective disorder: Status: Acute Code(s): F25.9 - Schizoaffective disorder, unspecified Plan Ms. Thomas is a 69 year-old woman with hx of Bipolar Disorder, she currently presents with several symptoms suggestive of negative symptoms seem usually in schizoaffective disorder including constricted affect, abulia (some acknowledgment that she needed to initiate certain activities like going to dentist but still not doing so for unclear reasons). No overt paranoid delusions, her delayed response may be signs of thought blocking and underlying psychosis. She is in agreement to receive treatment and complete work up to also assess her memory and cognition. We discussed restarting abilify, which was started while she was in the ED- will titrate dose. 08/[address] shows atrophy. pending MOCA/ACL. continue abilify but may increase and add low dose ativan. 08/26 will increased abilify to 15mg po daily. will add low dose ativan- wonder if it helps with delayed response, and some staring. 08/27: T102, URI Sx. influenza A POS. UA NEG. tamiflu, droplet precautions. increase HS ativan to 1 mg. otherwise continue prior mgmt. 08/28: no requests or complaints, appears drained, resting in bed. continue current mgmt. 08/29- continue to present febrile, this AM 101.F, O2sat on RA 94%, limited oral intake yesterday, ordered labs to monitor dehydration. pt after encouragement, drinking cup of orange juice, some water, bananas and saltine crackers. pending labs. 08/30 continue tx. afebrile today for most of the day. O2sat on RA 96%. less cough, no signs of respiratory distress. taking medications. 08/31 family meeting- discussed filing for guardianship, she is currently taking medications. no longer symptomatic in terms of Influenza. afebrile, no respiratory distress. 09/01 continue tx. will complete guardianship papers 09/02 guardianship filed. continue tx. started on namenda target abulia. abilify increased to 20mg po daily. 09/03 continue tx. 09/04 continue tx. 09/05 continue tx. 09/06 continue tx. 09/07 continue tx. 09/08: stable. no questions or complaints. continue current mgmt. 09/09 will increase abilify to 30mg po daily. 09/10/2024 Question if increase Abilify is worsening blunting and bulimia 09/11/2024 Continue Abilify might consider Latuda Provigil unclear what patient's baseline is 09/12 continue tx. 09/13 continue tx. 09/14 continue tx. 09/15 continue tx. 09/16 continue tx. VS stable. 09/17 Patient presents as suspicious and guarded with financial underwriter. Patient kind of walking out of her room but at the side of financial underwriter, backs up into her room, then walks out a little then backs up a little... She is vague with financial underwriter but denies any psychiatric symptoms. -taking meds 09/18 paranoid, guarded; says yes to dysuria. Started on Ceftin for UTI 09/20 keep same treatment 09/22 keep same treatment 09/23 keep same treatment 09/24: continue current mgmt. stable, safe. no behavioral concerns. 09/25: no change from yesterday. 09/26 continue tx. awaiting guardianship 09/27 continue tx. 09/28 continue tx. 09/29 continue tx. 09/30 continue tx. 10/02 Nursing reports that patient was upset today because she urinated on herself . She said I do not want to live like this though denied any SI. Patient upset that she often smells like urine. On approach however as financial underwriter inquired, she said that today was an easier day.. and Had no concerns. 10/03: stable, no change in presentation. continue current mgmt. 10/04: stable. continue current mgmt. awaiting SNF placement and guardian. 10/05: no change in presentation or plan. 10/06: observed eating in milieu, appeared to have finished her plate and was in good spirits. continue current mgmt. 10/07/2024 Patient with no current discharge plan pending guardianship [employer] application. Patient's mood is flat somewhat apathetic but stable. No lower level of care currently available. 10/09: no change in presentation. colace 100 BID and lac hydrin to feet added. 10/10/2024 Patient essentially stable no change no lower level of care available for discharge discharge planning continues 10/11/2024 Continue plan of care no less restrictive place to discharge 10/12: no change in status or plan. 10/13/2024 Continue discharge planning no less restrictive place available to discharge patient flat apathetic not in distress not psychotically agitated Reason for continued inpatient stay Substantial Risk for: inability to function and rapid decompensation Time Spent With Patient Time: Total time managing care of this patient today ____ minutes.
[2024-10-13] MEDS: Ammonium Lactate 12 % Lotion 226 GM BOTTLE 1 APPL TOPICAL (22:18)
[2024-10-14 10:19] VITALS: BP 129/60; PULSE 85; RESP 18; TEMP 36.2; O2SAT 98
[2024-10-14] MEDS: ARIPiprazole 30 MG TABLET PO (10:37)
--- NOTE | 2024-10-14 13:20 | P.PNPSI_ITS ---
Subjective Subjective Date of Service: 10/14/24 Reason For Visit: bipolar 1 disorder current or most recent epi Interim History: no change in presentation. lying in bed, awake and alert. per staff, slept 8 hours. denies psych Sx. eating 100%. taking meds. Mental Status Exam Mental Status Exam Narrative: Appearance: adequately dressed and groomed Behavior: guarded, cautious Psychomotor: some retardation Speech: mostly clear, less latency, minimally spontaneous TP: [place] TC: no questions or complaints Mood: good Affect: Flat SI: none expressed HI: none expressed VH/AH: none evidenced Delusions: no overt delusional content noted or reported Insight/judgment: impaired . Diagnostics Vital Signs (24Hr): Vital Signs - 24 hr 10/13/24 20:00 10/14/24 10:19 Temperature 97.3 F 97.2 F Pulse Rate 84 85 Respiratory Rate 16 18 Blood Pressure 114/54 L 129/60 Pulse Oximetry 97 98 Oxygen Delivery Method Room Air Room Air BMI result Body Mass Index 21.4 Labs 08/27/24 10:00 08/29/24 17:32 Imaging Radiology Impressions: ITS Impressions Head CT 08/25/24 11:33 IMPRESSION: No acute intracranial abnormality. Electronically signed by: Cj Colunga MD 08/25/2024 12:12 [place] [facility] [place] Medications Current Medications Acetaminophen (Acetaminophen 325 Mg Tablet) 650 mg PO Q6H PRN PRN Reason: Headache/Pain, Scale 1-10 Last Admin: 10/11/24 20:15 Dose: 650 mg Al Hydroxide/Mg Hydroxide (Magnesium Hydrox/Alum Hydrox 30 Ml Oral.Susp) 30 ml PO Q6H PRN PRN Reason: Heartburn/Nausea Aripiprazole (Aripiprazole 30 Mg Tablet) 30 mg PO DAILY [facility] [place] Last Admin: 10/14/24 10:37 Dose: 30 mg Benzocaine (Throat Lozenge, Medicated Lozenge) 1 lozenge MUCOUS MEM Q1H PRN PRN Reason: Sore Throat Last Admin: 09/01/24 06:09 Dose: 1 lozenge Docusate Sodium (Docusate Sodium 100 Mg Capsule) 100 mg PO BID [facility] [place] Last Admin: 10/14/24 10:37 Dose: 100 mg Guaifenesin/Dextromethorphan (Guaifenesin Dm 200/20/10 Ml 10 Ml Syrup) 10 ml PO Q4H PRN PRN Reason: Cough Last Admin: 08/30/24 05:47 Dose: 10 ml Lactic Acid (Ammonium Lactate 12 % Lotion 226 Gm Bottle) 1 appl TOPICAL BID [facility] [place]; Protocol Last Admin: 10/14/24 10:38 Dose: Not Given Levothyroxine Sodium (Levothyroxine Sodium 75 Mcg Tablet) 75 mcg PO DAILY@0630 [facility] [place] Last Admin: 10/14/24 05:38 Dose: 75 mcg Lidocaine/Diphenhydr/Alum/Mg/Simeth (Mag&Al/Sim/Diphenhyd/Lidocaine 10 Ml Oral.Susp) 10 ml PO Q6H PRN; Protocol PRN Reason: Painful Gums Last Admin: 08/26/24 13:38 Dose: 10 ml Lorazepam (Lorazepam 0.5 Mg Tablet) 0.5 mg PO BID [facility] [place] Last Admin: 10/14/24 10:37 Dose: 0.5 mg Magnesium Hydroxide (Milk Of Magnesia 30 Ml Oral.Susp) 30 ml PO DAILY PRN PRN Reason: Constipation Memantine (Memantine Hcl 5 Mg Tablet) 5 mg PO DAILY [facility] [place] Last Admin: 10/14/24 10:36 Dose: 5 mg Olanzapine (Olanzapine Odt 10 Mg Tab.Rapdis) 5 mg TRANSLINGU Q6H PRN PRN Reason: Agitation Pravastatin Sodium (Pravastatin Sodium 40 Mg Tablet) 40 mg PO BEDTIME [facility] [place] Last Admin: 10/13/24 22:18 Dose: 40 mg Vitamin D (Cholecalciferol (Vitamin D3) 25 Mcg Tablet) 50 mcg PO DAILY [facility] [place] Last Admin: 10/14/24 10:36 Dose: 50 mcg Allergies Allergies Allergy/AdvReac Type Severity Reaction Status Date / Time meperidine [From Demerol] AdvReac Intermediate Rash Verified 08/23/24 19:34 morphine AdvReac Intermediate Rash Verified 08/23/24 19:35 Sulfa (Sulfonamide AdvReac Intermediate Rash Verified 08/23/24 19:36 Antibiotics) Assessment & Plan Assessment & Plan (1) Schizoaffective disorder: Status: Acute Code(s): F25.9 - Schizoaffective disorder, unspecified Plan Ms. Thomas is a 69 year-old woman with hx of Bipolar Disorder, she currently presents with several symptoms suggestive of negative symptoms seem usually in schizoaffective disorder including constricted affect, abulia (some acknowledgment that she needed to initiate certain activities like going to dentist but still not doing so for unclear reasons). No overt paranoid delusions, her delayed response may be signs of thought blocking and underlying psychosis. She is in agreement to receive treatment and complete work up to also assess her memory and cognition. We discussed restarting abilify, which was started while she was in the ED- will titrate dose. 08/[address] shows atrophy. pending MOCA/ACL. continue abilify but may increase and add low dose ativan. 08/26 will increased abilify to 15mg po daily. will add low dose ativan- wonder if it helps with delayed response, and some staring. 08/27: T102, URI Sx. influenza A POS. UA NEG. tamiflu, droplet precautions. increase HS ativan to 1 mg. otherwise continue prior mgmt. 08/28: no requests or complaints, appears drained, resting in bed. continue current mgmt. 08/29- continue to present febrile, this AM 101.F, O2sat on RA 94%, limited oral intake yesterday, ordered labs to monitor dehydration. pt after encouragement, drinking cup of orange juice, some water, bananas and saltine crackers. pending labs. 08/30 continue tx. afebrile today for most of the day. O2sat on RA 96%. less cough, no signs of respiratory distress. taking medications. 08/31 family meeting- discussed filing for guardianship, she is currently taking medications. no longer symptomatic in terms of Influenza. afebrile, no respiratory distress. 09/01 continue tx. will complete guardianship papers 09/02 guardianship filed. continue tx. started on namenda target abulia. abilify increased to 20mg po daily. 09/03 continue tx. 09/04 continue tx. 09/05 continue tx. 09/06 continue tx. 09/07 continue tx. 09/08: stable. no questions or complaints. continue current mgmt. 09/09 will increase abilify to 30mg po daily. 09/10/2024 Question if increase Abilify is worsening blunting and bulimia 09/11/2024 Continue Abilify might consider Latuda Provigil unclear what patient's baseline is 09/12 continue tx. 09/13 continue tx. 09/14 continue tx. 09/15 continue tx. 09/16 continue tx. VS stable. 09/17 Patient presents as suspicious and guarded with senior underwriter. Patient kind of walking out of her room but at the side of senior underwriter, backs up into her room, then walks out a little then backs up a little... She is vague with senior underwriter but denies any psychiatric symptoms. -taking meds 09/18 paranoid, guarded; says yes to dysuria. Started on Ceftin for UTI 09/20 keep same treatment 09/22 keep same treatment 09/23 keep same treatment 09/24: continue current mgmt. stable, safe. no behavioral concerns. 09/25: no change from yesterday. 09/26 continue tx. awaiting guardianship 09/27 continue tx. 09/28 continue tx. 09/29 continue tx. 09/30 continue tx. 10/02 Nursing reports that patient was upset today because she urinated on herself . She said I do not want to live like this though denied any SI. Patient upset that she often smells like urine. On approach however as senior underwriter inquired, she said that today was an easier day.. and Had no concerns. 10/03: stable, no change in presentation. continue current mgmt. 10/04: stable. continue current mgmt. awaiting SNF placement and guardian. 10/05: no change in presentation or plan. 10/06: observed eating in milieu, appeared to have finished her plate and was in good spirits. continue current mgmt. 10/07/2024 Patient with no current discharge plan pending guardianship [employer] application. Patient's mood is flat somewhat apathetic but stable. No lower level of care currently available. 10/09: no change in presentation. colace 100 BID and lac hydrin to feet added. 10/10/2024 Patient essentially stable no change no lower level of care available for discharge discharge planning continues 10/11/2024 Continue plan of care no less restrictive place to discharge 10/12: no change in status or plan. 10/14: no change in status or plan. Reason for continued inpatient stay Substantial Risk for: inability to function Time Spent With Patient Time: Total time managing care of this patient today ____ minutes.
[2024-10-14 20:00] VITALS: BP 108/53; PULSE 72; RESP 18; TEMP 36.6; O2SAT 98
[2024-10-14] MEDS: Ammonium Lactate 12 % Lotion 226 GM BOTTLE 1 APPL TOPICAL (20:17)
[2024-10-15 07:40] VITALS: BP 130/78; PULSE 98; RESP 16; TEMP 35.8; O2SAT 100
[2024-10-15] MEDS: ARIPiprazole 30 MG TABLET PO (08:18)
--- NOTE | 2024-10-15 12:16 | HO.PSYCHPN ---
Subjective Subjective Date of Service: 10/15/24 Reason For Visit: bipolar 1 disorder current or most recent epi Subjective Notes: Conditional Voluntary Interim History: Patient was seen and discussed in rounds today. Records and plans were reviewed. She has been a little anxious. Mostly pleasant and cooperative. No SI. No behavioral issues. No complaints or side effects. Eating and sleeping adequately Review of Systems Review of Systems Yes all other systems are reviewed and are negative Mental Status Exam Mental Status Exam Narrative: In today's visit she is alert and pleasant. Normal speech. Minimal eye contact. Affect is appropriate and constricted. No signs of psychosis. No AVH. No SI. Cognitively is somewhat impaired. Able to move all limbs. No gait abnormalities. Judgment is intact Diagnostics Vital Signs (24Hr): Vital Signs - 24 hr 10/14/24 20:00 10/15/24 07:40 Temperature 97.8 F 96.4 F L Pulse Rate 72 98 Respiratory Rate 18 16 Blood Pressure 108/53 L 130/78 Pulse Oximetry 98 100 Oxygen Delivery Method Room Air Room Air BMI result Body Mass Index 21.4 Labs 08/27/24 10:00 08/29/24 17:32 Imaging Radiology Impressions: ITS Impressions Head CT 08/25/24 11:33 IMPRESSION: No acute intracranial abnormality. Electronically signed by: Cj Colunga MD 08/25/2024 12:12 PM [facility] [place] Medications Medications Current Medications Acetaminophen (Acetaminophen 325 Mg Tablet) 650 mg PO Q6H PRN PRN Reason: Headache/Pain, Scale 1-10 Last Admin: 10/11/24 20:15 Dose: 650 mg Al Hydroxide/Mg Hydroxide (Magnesium Hydrox/Alum Hydrox 30 Ml Oral.Susp) 30 ml PO Q6H PRN PRN Reason: Heartburn/Nausea Aripiprazole (Aripiprazole 30 Mg Tablet) 30 mg PO DAILY [facility] Last Admin: 10/15/24 08:18 Dose: 30 mg Benzocaine (Throat Lozenge, Medicated Lozenge) 1 lozenge MUCOUS MEM Q1H PRN PRN Reason: Sore Throat Last Admin: 09/01/24 06:09 Dose: 1 lozenge Docusate Sodium (Docusate Sodium 100 Mg Capsule) 100 mg PO BID [facility] Last Admin: 10/15/24 08:18 Dose: 100 mg Guaifenesin/Dextromethorphan (Guaifenesin Dm 200/20/10 Ml 10 Ml Syrup) 10 ml PO Q4H PRN PRN Reason: Cough Last Admin: 08/30/24 05:47 Dose: 10 ml Lactic Acid (Ammonium Lactate 12 % Lotion 226 Gm Bottle) 1 appl TOPICAL BID [facility]; Protocol Last Admin: 10/15/24 08:18 Dose: Not Given Levothyroxine Sodium (Levothyroxine Sodium 75 Mcg Tablet) 75 mcg PO DAILY@0630 [facility] Last Admin: 10/15/24 05:14 Dose: 75 mcg Lidocaine/Diphenhydr/Alum/Mg/Simeth (Mag&Al/Sim/Diphenhyd/Lidocaine 10 Ml Oral.Susp) 10 ml PO Q6H PRN; Protocol PRN Reason: Painful Gums Last Admin: 08/26/24 13:38 Dose: 10 ml Magnesium Hydroxide (Milk Of Magnesia 30 Ml Oral.Susp) 30 ml PO DAILY PRN PRN Reason: Constipation Memantine (Memantine Hcl 5 Mg Tablet) 5 mg PO DAILY [facility] Last Admin: 10/15/24 08:18 Dose: 5 mg Olanzapine (Olanzapine Odt 10 Mg Tab.Rapdis) 5 mg TRANSLINGU Q6H PRN PRN Reason: Agitation Pravastatin Sodium (Pravastatin Sodium 40 Mg Tablet) 40 mg PO BEDTIME [facility] Last Admin: 10/14/24 20:16 Dose: 40 mg Vitamin D (Cholecalciferol (Vitamin D3) 25 Mcg Tablet) 50 mcg PO DAILY [facility] Last Admin: 10/15/24 08:18 Dose: 50 mcg Allergies Allergies Allergy/AdvReac Type Severity Reaction Status Date / Time meperidine [From Demerol] AdvReac Intermediate Rash Verified 08/23/24 19:34 morphine AdvReac Intermediate Rash Verified 08/23/24 19:35 Sulfa (Sulfonamide AdvReac Intermediate Rash Verified 08/23/24 19:36 Antibiotics) Assessment & Plan Assessment & Plan (1) Schizoaffective disorder: Status: Acute Code(s): F25.9 - Schizoaffective disorder, unspecified Plan Ms. Thomas is a 69 year-old woman with hx of Bipolar Disorder, she currently presents with several symptoms suggestive of negative symptoms seem usually in schizoaffective disorder including constricted affect, abulia (some acknowledgment that she needed to initiate certain activities like going to dentist but still not doing so for unclear reasons). No overt paranoid delusions, her delayed response may be signs of thought blocking and underlying psychosis. She is in agreement to receive treatment and complete work up to also assess her memory and cognition. We discussed restarting abilify, which was started while she was in the ED- will titrate dose. 08/[address] shows atrophy. pending MOCA/ACL. continue abilify but may increase and add low dose ativan. 08/26 will increased abilify to 15mg po daily. will add low dose ativan- wonder if it helps with delayed response, and some staring. 08/27: T102, URI Sx. influenza A POS. UA NEG. tamiflu, droplet precautions. increase HS ativan to 1 mg. otherwise continue prior mgmt. 08/28: no requests or complaints, appears drained, resting in bed. continue current mgmt. 08/29- continue to present febrile, this AM 101.F, O2sat on RA 94%, limited oral intake yesterday, ordered labs to monitor dehydration. pt after encouragement, drinking cup of orange juice, some water, bananas and saltine crackers. pending labs. 08/30 continue tx. afebrile today for most of the day. O2sat on RA 96%. less cough, no signs of respiratory distress. taking medications. 08/31 family meeting- discussed filing for guardianship, she is currently taking medications. no longer symptomatic in terms of Influenza. afebrile, no respiratory distress. 09/01 continue tx. will complete guardianship papers 09/02 guardianship filed. continue tx. started on namenda target abulia. abilify increased to 20mg po daily. 09/03 continue tx. 09/04 continue tx. 09/05 continue tx. 09/06 continue tx. 09/07 continue tx. 09/08: stable. no questions or complaints. continue current mgmt. 09/09 will increase abilify to 30mg po daily. 09/10/2024 Question if increase Abilify is worsening blunting and bulimia 09/11/2024 Continue Abilify might consider Latuda Provigil unclear what patient's baseline is 09/12 continue tx. 09/13 continue tx. 09/14 continue tx. 09/15 continue tx. 09/16 continue tx. VS stable. 09/17 Patient presents as suspicious and guarded with journalists and other writers. Patient kind of walking out of her room but at the side of journalists and other writers, backs up into her room, then walks out a little then backs up a little... She is vague with journalists and other writers but denies any psychiatric symptoms. -taking meds 09/18 paranoid, guarded; says yes to dysuria. Started on Ceftin for UTI 09/20 keep same treatment 09/22 keep same treatment 09/23 keep same treatment 09/24: continue current mgmt. stable, safe. no behavioral concerns. 09/25: no change from yesterday. 09/26 continue tx. awaiting guardianship 09/27 continue tx. 09/28 continue tx. 09/29 continue tx. 09/30 continue tx. 10/02 Nursing reports that patient was upset today because she urinated on herself . She said I do not want to live like this though denied any SI. Patient upset that she often smells like urine. On approach however as journalists and other writers inquired, she said that today was an easier day.. and Had no concerns. 10/03: stable, no change in presentation. continue current mgmt. 10/04: stable. continue current mgmt. awaiting SNF placement and guardian. 10/05: no change in presentation or plan. 10/06: observed eating in milieu, appeared to have finished her plate and was in good spirits. continue current mgmt. 10/07/2024 Patient with no current discharge plan pending guardianship [employer] application. Patient's mood is flat somewhat apathetic but stable. No lower level of care currently available. 10/09: no change in presentation. colace 100 BID and lac hydrin to feet added. 10/10/2024 Patient essentially stable no change no lower level of care available for discharge discharge planning continues 10/11/2024 Continue plan of care no less restrictive place to discharge 10/12: no change in status or plan. 10/14: no change in status or plan. 10/15: Continue current plans and regimen Reason for continued inpatient stay Substantial Risk for: inability to function Time Spent With Patient Time: Total time managing care of this patient today ____ minutes.
[2024-10-15 20:00] VITALS: BP 130/57; PULSE 79; RESP 18; TEMP 36.3; O2SAT 97
[2024-10-16 07:58] VITALS: BP 136/70; PULSE 100; RESP 18; TEMP 36.4; O2SAT 97
[2024-10-16] MEDS: ARIPiprazole 30 MG TABLET PO (07:59)
--- NOTE | 2024-10-16 08:29 | P.PNPSI_ITS ---
Subjective Subjective Date of Service: 10/16/24 Reason For Visit: bipolar 1 disorder current or most recent epi Subjective Notes: Conditional Voluntary Interim History: Patient was seen and discussed in rounds today. Records and plans were reviewed. She is doing better with less anxiety. Pleasant and cooperative. Medication compliant. No complaints or side effects. No SI or dangerous behaviors. No changes were made today Review of Systems Review of Systems Yes all other systems are reviewed and are negative Mental Status Exam Mental Status Exam Narrative: In today's visit she is alert and pleasant. Normal speech. Minimal eye contact. Affect is appropriate and constricted. No signs of psychosis. No AVH. No SI. Cognitively is somewhat impaired. Able to move all limbs. No gait abnormalities. Judgment is intact Diagnostics Vital Signs (24Hr): Vital Signs - 24 hr 10/15/24 20:00 10/16/24 07:58 Temperature 97.4 F 97.5 F Pulse Rate 79 100 Respiratory Rate 18 18 Blood Pressure 130/57 L 136/70 Pulse Oximetry 97 97 Oxygen Delivery Method Room Air Room Air BMI result Body Mass Index 21.4 Labs 08/27/24 10:00 08/29/24 17:32 Imaging Radiology Impressions: ITS Impressions Head CT 08/25/24 11:33 IMPRESSION: No acute intracranial abnormality. Electronically signed by: Cj Colunga MD 08/25/2024 12:12 PM [facility] Medications Medications Current Medications Acetaminophen (Acetaminophen 325 Mg Tablet) 650 mg PO Q6H PRN PRN Reason: Headache/Pain, Scale 1-10 Last Admin: 10/11/24 20:15 Dose: 650 mg Al Hydroxide/Mg Hydroxide (Magnesium Hydrox/Alum Hydrox 30 Ml Oral.Susp) 30 ml PO Q6H PRN PRN Reason: Heartburn/Nausea Aripiprazole (Aripiprazole 30 Mg Tablet) 30 mg PO DAILY [facility] Last Admin: 10/16/24 07:59 Dose: 30 mg Benzocaine (Throat Lozenge, Medicated Lozenge) 1 lozenge MUCOUS MEM Q1H PRN PRN Reason: Sore Throat Last Admin: 09/01/24 06:09 Dose: 1 lozenge Docusate Sodium (Docusate Sodium 100 Mg Capsule) 100 mg PO BID [facility] Last Admin: 10/16/24 07:59 Dose: 100 mg Guaifenesin/Dextromethorphan (Guaifenesin Dm 200/20/10 Ml 10 Ml Syrup) 10 ml PO Q4H PRN PRN Reason: Cough Last Admin: 08/30/24 05:47 Dose: 10 ml Lactic Acid (Ammonium Lactate 12 % Lotion 226 Gm Bottle) 1 appl TOPICAL BID [facility]; Protocol Last Admin: 10/16/24 07:21 Dose: Not Given Levothyroxine Sodium (Levothyroxine Sodium 75 Mcg Tablet) 75 mcg PO DAILY@0630 [facility] Last Admin: 10/16/24 05:42 Dose: 75 mcg Lidocaine/Diphenhydr/Alum/Mg/Simeth (Mag&Al/Sim/Diphenhyd/Lidocaine 10 Ml Oral.Susp) 10 ml PO Q6H PRN; Protocol PRN Reason: Painful Gums Last Admin: 08/26/24 13:38 Dose: 10 ml Magnesium Hydroxide (Milk Of Magnesia 30 Ml Oral.Susp) 30 ml PO DAILY PRN PRN Reason: Constipation Memantine (Memantine Hcl 5 Mg Tablet) 5 mg PO DAILY [facility] Last Admin: 10/16/24 07:59 Dose: 5 mg Olanzapine (Olanzapine Odt 10 Mg Tab.Rapdis) 5 mg TRANSLINGU Q6H PRN PRN Reason: Agitation Pravastatin Sodium (Pravastatin Sodium 40 Mg Tablet) 40 mg PO BEDTIME [facility] Last Admin: 10/15/24 20:49 Dose: 40 mg Vitamin D (Cholecalciferol (Vitamin D3) 25 Mcg Tablet) 50 mcg PO DAILY [facility] Last Admin: 10/16/24 07:59 Dose: 50 mcg Allergies Allergies Allergy/AdvReac Type Severity Reaction Status Date / Time meperidine [From Demerol] AdvReac Intermediate Rash Verified 08/23/24 19:34 morphine AdvReac Intermediate Rash Verified 08/23/24 19:35 Sulfa (Sulfonamide AdvReac Intermediate Rash Verified 08/23/24 19:36 Antibiotics) Assessment & Plan Assessment & Plan (1) Schizoaffective disorder: Status: Acute Code(s): F25.9 - Schizoaffective disorder, unspecified Plan Ms. Thomas is a 69 year-old woman with hx of Bipolar Disorder, she currently presents with several symptoms suggestive of negative symptoms seem usually in schizoaffective disorder including constricted affect, abulia (some acknowledgment that she needed to initiate certain activities like going to dentist but still not doing so for unclear reasons). No overt paranoid delusions, her delayed response may be signs of thought blocking and underlying psychosis. She is in agreement to receive treatment and complete work up to also assess her memory and cognition. We discussed restarting abilify, which was started while she was in the ED- will titrate dose. 08/[address] shows atrophy. pending MOCA/ACL. continue abilify but may increase and add low dose ativan. 08/26 will increased abilify to 15mg po daily. will add low dose ativan- wonder if it helps with delayed response, and some staring. 08/27: T102, URI Sx. influenza A POS. UA NEG. tamiflu, droplet precautions. increase HS ativan to 1 mg. otherwise continue prior mgmt. 08/28: no requests or complaints, appears drained, resting in bed. continue current mgmt. 08/29- continue to present febrile, this AM 101.F, O2sat on RA 94%, limited oral intake yesterday, ordered labs to monitor dehydration. pt after encouragement, drinking cup of orange juice, some water, bananas and saltine crackers. pending labs. 08/30 continue tx. afebrile today for most of the day. O2sat on RA 96%. less cough, no signs of respiratory distress. taking medications. 08/31 family meeting- discussed filing for guardianship, she is currently taking medications. no longer symptomatic in terms of Influenza. afebrile, no respiratory distress. 09/01 continue tx. will complete guardianship papers 09/02 guardianship filed. continue tx. started on namenda target abulia. abilify increased to 20mg po daily. 09/03 continue tx. 09/04 continue tx. 09/05 continue tx. 09/06 continue tx. 09/07 continue tx. 09/08: stable. no questions or complaints. continue current mgmt. 09/09 will increase abilify to 30mg po daily. 09/10/2024 Question if increase Abilify is worsening blunting and bulimia 09/11/2024 Continue Abilify might consider Latuda Provigil unclear what patient's baseline is 09/12 continue tx. 09/13 continue tx. 09/14 continue tx. 09/15 continue tx. 09/16 continue tx. VS stable. 09/17 Patient presents as suspicious and guarded with typewriters functional tester. Patient kind of walking out of her room but at the side of typewriters functional tester, backs up into her room, then walks out a little then backs up a little... She is vague with typewriters functional tester but denies any psychiatric symptoms. -taking meds 09/18 paranoid, guarded; says yes to dysuria. Started on Ceftin for UTI 09/20 keep same treatment 09/22 keep same treatment 09/23 keep same treatment 09/24: continue current mgmt. stable, safe. no behavioral concerns. 09/25: no change from yesterday. 09/26 continue tx. awaiting guardianship 09/27 continue tx. 09/28 continue tx. 09/29 continue tx. 09/30 continue tx. 10/02 Nursing reports that patient was upset today because she urinated on herself . She said I do not want to live like this though denied any SI. Patient upset that she often smells like urine. On approach however as typewriters functional tester inquired, she said that today was an easier day.. and Had no concerns. 10/03: stable, no change in presentation. continue current mgmt. 10/04: stable. continue current mgmt. awaiting SNF placement and guardian. 10/05: no change in presentation or plan. 10/06: observed eating in milieu, appeared to have finished her plate and was in good spirits. continue current mgmt. 10/07/2024 Patient with no current discharge plan pending guardianship [employer] application. Patient's mood is flat somewhat apathetic but stable. No lower level of care currently available. 10/09: no change in presentation. colace 100 BID and lac hydrin to feet added. 10/10/2024 Patient essentially stable no change no lower level of care available for discharge discharge planning continues 10/11/2024 Continue plan of care no less restrictive place to discharge 10/12: no change in status or plan. 10/14: no change in status or plan. 10/15: Continue current plans and regimen 10/16: Continue current plans and regimen Reason for continued inpatient stay Substantial Risk for: inability to function and med/psych decompensation Time Spent With Patient Time: Total time managing care of this patient today ____ minutes.
[2024-10-16 20:00] VITALS: BP 118/56; PULSE 81; RESP 15; TEMP 36.3; O2SAT 97
[2024-10-17 08:30] VITALS: BP 126/57; PULSE 88; RESP 18; TEMP 36.2; O2SAT 98
[2024-10-17] MEDS: Ammonium Lactate 12 % Lotion 226 GM BOTTLE 1 APPL TOPICAL ×2 (08:46→20:38)
[2024-10-17] MEDS: ARIPiprazole 30 MG TABLET PO (08:47)
--- NOTE | 2024-10-17 14:40 | P.PNPSI_ITS ---
Subjective Subjective Date of Service: 10/17/24 Reason For Visit: bipolar 1 disorder current or most recent epi Interim History: Met with patient; discussed with team; reviewed chart Patient reports that she is good and says has no needs or questions. She remains isolative in bed, sitting up just answer justowriter operator with one-word answers. Mental Status Exam Mental Status Exam Narrative: Appearance: constricted affect, in NAD, Behavior: guarded, cautious Psychomotor: some retardation Speech: clear, some latency, minimally spontaneous TP: [place] TC: no questions or complaints Mood: good Affect:constricted, anxious SI: Denied HI: Denies VH/AH: denies but may be internally preoccupied Delusions: no overt delusional content noted or reported Insight/judgment: impaired Diagnostics Vital Signs (24Hr): Vital Signs - 24 hr 10/16/24 20:00 10/17/24 08:30 Temperature 97.3 F 97.1 F Pulse Rate 81 88 Respiratory Rate 15 18 Blood Pressure 118/56 L 126/57 L Pulse Oximetry 97 98 Oxygen Delivery Method Room Air Room Air BMI result Body Mass Index 21.4 Labs 08/27/24 10:00 08/29/24 17:32 Imaging Radiology Impressions: ITS Impressions Head CT 08/25/24 11:33 IMPRESSION: No acute intracranial abnormality. Electronically signed by: Cj Colunga MD 08/25/2024 12:12 PM [facility] [place] Medications Medications Current Medications Acetaminophen (Acetaminophen 325 Mg Tablet) 650 mg PO Q6H PRN PRN Reason: Headache/Pain, Scale 1-10 Last Admin: 10/11/24 20:15 Dose: 650 mg Al Hydroxide/Mg Hydroxide (Magnesium Hydrox/Alum Hydrox 30 Ml Oral.Susp) 30 ml PO Q6H PRN PRN Reason: Heartburn/Nausea Aripiprazole (Aripiprazole 30 Mg Tablet) 30 mg PO DAILY [facility] Last Admin: 10/17/24 08:47 Dose: 30 mg Benzocaine (Throat Lozenge, Medicated Lozenge) 1 lozenge MUCOUS MEM Q1H PRN PRN Reason: Sore Throat Last Admin: 09/01/24 06:09 Dose: 1 lozenge Docusate Sodium (Docusate Sodium 100 Mg Capsule) 100 mg PO BID [facility] Last Admin: 10/17/24 08:47 Dose: 100 mg Guaifenesin/Dextromethorphan (Guaifenesin Dm 200/20/10 Ml 10 Ml Syrup) 10 ml PO Q4H PRN PRN Reason: Cough Last Admin: 08/30/24 05:47 Dose: 10 ml Lactic Acid (Ammonium Lactate 12 % Lotion 226 Gm Bottle) 1 appl TOPICAL BID [facility]; Protocol Last Admin: 10/17/24 08:46 Dose: 1 appl Levothyroxine Sodium (Levothyroxine Sodium 75 Mcg Tablet) 75 mcg PO DAILY@0630 [facility] Last Admin: 10/17/24 05:29 Dose: 75 mcg Lidocaine/Diphenhydr/Alum/Mg/Simeth (Mag&Al/Sim/Diphenhyd/Lidocaine 10 Ml Oral.Susp) 10 ml PO Q6H PRN; Protocol PRN Reason: Painful Gums Last Admin: 08/26/24 13:38 Dose: 10 ml Magnesium Hydroxide (Milk Of Magnesia 30 Ml Oral.Susp) 30 ml PO DAILY PRN PRN Reason: Constipation Memantine (Memantine Hcl 5 Mg Tablet) 5 mg PO DAILY [facility] Last Admin: 10/17/24 08:46 Dose: 5 mg Olanzapine (Olanzapine Odt 10 Mg Tab.Rapdis) 5 mg TRANSLINGU Q6H PRN PRN Reason: Agitation Pravastatin Sodium (Pravastatin Sodium 40 Mg Tablet) 40 mg PO BEDTIME [facility] Last Admin: 10/16/24 20:24 Dose: 40 mg Vitamin D (Cholecalciferol (Vitamin D3) 25 Mcg Tablet) 50 mcg PO DAILY [facility] Last Admin: 10/17/24 08:46 Dose: 50 mcg Allergies Allergies Allergy/AdvReac Type Severity Reaction Status Date / Time meperidine [From Demerol] AdvReac Intermediate Rash Verified 08/23/24 19:34 morphine AdvReac Intermediate Rash Verified 08/23/24 19:35 Sulfa (Sulfonamide AdvReac Intermediate Rash Verified 08/23/24 19:36 Antibiotics) Assessment & Plan Assessment & Plan (1) Schizoaffective disorder: Status: Acute Code(s): F25.9 - Schizoaffective disorder, unspecified Plan Ms. Thomas is a 69 year-old woman with hx of Bipolar Disorder, she currently presents with several symptoms suggestive of negative symptoms seem usually in schizoaffective disorder including constricted affect, abulia (some acknowledgment that she needed to initiate certain activities like going to dentist but still not doing so for unclear reasons). No overt paranoid delusions, her delayed response may be signs of thought blocking and underlying psychosis. She is in agreement to receive treatment and complete work up to also assess her memory and cognition. We discussed restarting abilify, which was started while she was in the ED- will titrate dose. 08/[address] shows atrophy. pending MOCA/ACL. continue abilify but may increase and add low dose ativan. 08/26 will increased abilify to 15mg po daily. will add low dose ativan- wonder if it helps with delayed response, and some staring. 08/27: T102, URI Sx. influenza A POS. UA NEG. tamiflu, droplet precautions. increase HS ativan to 1 mg. otherwise continue prior mgmt. 08/28: no requests or complaints, appears drained, resting in bed. continue current mgmt. 08/29- continue to present febrile, this AM 101.F, O2sat on RA 94%, limited oral intake yesterday, ordered labs to monitor dehydration. pt after encouragement, drinking cup of orange juice, some water, bananas and saltine crackers. pending labs. 08/30 continue tx. afebrile today for most of the day. O2sat on RA 96%. less cough, no signs of respiratory distress. taking medications. 08/31 family meeting- discussed filing for guardianship, she is currently taking medications. no longer symptomatic in terms of Influenza. afebrile, no respiratory distress. 09/01 continue tx. will complete guardianship papers 09/02 guardianship filed. continue tx. started on namenda target abulia. abilify increased to 20mg po daily. 09/03 continue tx. 09/04 continue tx. 09/05 continue tx. 09/06 continue tx. 09/07 continue tx. 09/08: stable. no questions or complaints. continue current mgmt. 09/09 will increase abilify to 30mg po daily. 09/10/2024 Question if increase Abilify is worsening blunting and bulimia 09/11/2024 Continue Abilify might consider Latuda Provigil unclear what patient's baseline is 09/12 continue tx. 09/13 continue tx. 09/14 continue tx. 09/15 continue tx. 09/16 continue tx. VS stable. 09/17 Patient presents as suspicious and guarded with justowriter operator. Patient kind of walking out of her room but at the side of justowriter operator, backs up into her room, then walks out a little then backs up a little... She is vague with justowriter operator but denies any psychiatric symptoms. -taking meds 09/18 paranoid, guarded; says yes to dysuria. Started on Ceftin for UTI 09/20 keep same treatment 09/22 keep same treatment 09/23 keep same treatment 09/24: continue current mgmt. stable, safe. no behavioral concerns. 09/25: no change from yesterday. 09/26 continue tx. awaiting guardianship 09/27 continue tx. 09/28 continue tx. 09/29 continue tx. 09/30 continue tx. 10/02 Nursing reports that patient was upset today because she urinated on herself . She said I do not want to live like this though denied any SI. Patient upset that she often smells like urine. On approach however as justowriter operator inquired, she said that today was an easier day.. and Had no concerns. 10/03: stable, no change in presentation. continue current mgmt. 10/04: stable. continue current mgmt. awaiting SNF placement and guardian. 10/05: no change in presentation or plan. 10/06: observed eating in milieu, appeared to have finished her plate and was in good spirits. continue current mgmt. 10/07/2024 Patient with no current discharge plan pending guardianship [employer] application. Patient's mood is flat somewhat apathetic but stable. No lower level of care currently available. 10/09: no change in presentation. colace 100 BID and lac hydrin to feet added. 10/10/2024 Patient essentially stable no change no lower level of care available for discharge discharge planning continues 10/11/2024 Continue plan of care no less restrictive place to discharge 10/12: no change in status or plan. 10/14: no change in status or plan. 10/15: Continue current plans and regimen 10/16: Continue current plans and regimen 10/17: Continue current treatment plan -vitals WNL -no new labs Patient educated on: diagnosis Informed Consent: does not understand Reason for continued inpatient stay Substantial Risk for: inability to function Time Spent With Patient Time: Total time managing care of this patient today ____ minutes.
[2024-10-17 20:00] VITALS: BP 113/64; PULSE 87; RESP 16; TEMP 36.3; O2SAT 96
[2024-10-18 08:11] VITALS: BP 119/82; PULSE 107; RESP 16; TEMP 36; O2SAT 96
[2024-10-18] MEDS: Ammonium Lactate 12 % Lotion 226 GM BOTTLE 1 APPL TOPICAL ×2 (08:26→20:21)
[2024-10-18] MEDS: ARIPiprazole 30 MG TABLET PO (08:26)
--- NOTE | 2024-10-18 15:23 | P.PNPSI_ITS ---
Subjective Subjective Date of Service: 10/18/24 Reason For Visit: bipolar 1 disorder current or most recent epi Interim History: Patient seen psychiatric follow-up chart reviewed case reviewed with nursing staff. Patient has generally been calm and cooperative eating most meals sleep okay no episodes of violence or self-harm Medication Compliance: Yes Side effects from medications: No Mental Status Exam Mental Status Exam Narrative: Appearance: constricted affect, in NAD, Behavior: guarded, cautious, slow Psychomotor: some retardation Speech: clear, some latency, minimally spontaneous TP: [place] poverty of content TC: no questions or complaints Mood: good Affect:constricted, anxious SI: Denied HI: Denies VH/AH: denies Delusions: no overt delusional content noted or reported Insight/judgment: impaired Diagnostics Vital Signs (24Hr): Vital Signs - 24 hr 10/17/24 20:00 10/18/24 08:11 Temperature 97.4 F 96.8 F Pulse Rate 87 107 H Respiratory Rate 16 16 Blood Pressure 113/64 119/82 Pulse Oximetry 96 96 Oxygen Delivery Method Room Air Room Air BMI result Body Mass Index 21.4 Labs 08/27/24 10:00 08/29/24 17:32 Imaging Radiology Impressions: ITS Impressions Head CT 08/25/24 11:33 IMPRESSION: No acute intracranial abnormality. Electronically signed by: Cj Colunga MD 08/25/2024 12:12 PM [facility] Medications Medications Current Medications Acetaminophen (Acetaminophen 325 Mg Tablet) 650 mg PO Q6H PRN PRN Reason: Headache/Pain, Scale 1-10 Last Admin: 10/11/24 20:15 Dose: 650 mg Al Hydroxide/Mg Hydroxide (Magnesium Hydrox/Alum Hydrox 30 Ml Oral.Susp) 30 ml PO Q6H PRN PRN Reason: Heartburn/Nausea Aripiprazole (Aripiprazole 30 Mg Tablet) 30 mg PO DAILY [facility] Last Admin: 10/18/24 08:26 Dose: 30 mg Benzocaine (Throat Lozenge, Medicated Lozenge) 1 lozenge MUCOUS MEM Q1H PRN PRN Reason: Sore Throat Last Admin: 09/01/24 06:09 Dose: 1 lozenge Docusate Sodium (Docusate Sodium 100 Mg Capsule) 100 mg PO BID [facility] Last Admin: 10/18/24 08:26 Dose: 100 mg Guaifenesin/Dextromethorphan (Guaifenesin Dm 200/20/10 Ml 10 Ml Syrup) 10 ml PO Q4H PRN PRN Reason: Cough Last Admin: 08/30/24 05:47 Dose: 10 ml Lactic Acid (Ammonium Lactate 12 % Lotion 226 Gm Bottle) 1 appl TOPICAL BID [facility]; Protocol Last Admin: 10/18/24 08:26 Dose: 1 appl Levothyroxine Sodium (Levothyroxine Sodium 75 Mcg Tablet) 75 mcg PO DAILY@0630 [facility] Last Admin: 10/18/24 05:35 Dose: 75 mcg Lidocaine/Diphenhydr/Alum/Mg/Simeth (Mag&Al/Sim/Diphenhyd/Lidocaine 10 Ml Oral.Susp) 10 ml PO Q6H PRN; Protocol PRN Reason: Painful Gums Last Admin: 08/26/24 13:38 Dose: 10 ml Magnesium Hydroxide (Milk Of Magnesia 30 Ml Oral.Susp) 30 ml PO DAILY PRN PRN Reason: Constipation Memantine (Memantine Hcl 5 Mg Tablet) 5 mg PO DAILY [facility] Last Admin: 10/18/24 08:26 Dose: 5 mg Olanzapine (Olanzapine Odt 10 Mg Tab.Rapdis) 5 mg TRANSLINGU Q6H PRN PRN Reason: Agitation Pravastatin Sodium (Pravastatin Sodium 40 Mg Tablet) 40 mg PO BEDTIME [facility] Last Admin: 10/17/24 20:39 Dose: 40 mg Vitamin D (Cholecalciferol (Vitamin D3) 25 Mcg Tablet) 50 mcg PO DAILY [facility] Last Admin: 10/18/24 08:26 Dose: 50 mcg Allergies Allergies Allergy/AdvReac Type Severity Reaction Status Date / Time meperidine [From Demerol] AdvReac Intermediate Rash Verified 08/23/24 19:34 morphine AdvReac Intermediate Rash Verified 08/23/24 19:35 Sulfa (Sulfonamide AdvReac Intermediate Rash Verified 08/23/24 19:36 Antibiotics) Assessment & Plan Assessment & Plan (1) Schizoaffective disorder: Status: Acute Code(s): F25.9 - Schizoaffective disorder, unspecified Plan Ms. Thomas is a 69 year-old woman with hx of Bipolar Disorder, she currently presents with several symptoms suggestive of negative symptoms seem usually in schizoaffective disorder including constricted affect, abulia (some acknowledgment that she needed to initiate certain activities like going to dentist but still not doing so for unclear reasons). No overt paranoid delusions, her delayed response may be signs of thought blocking and underlying psychosis. She is in agreement to receive treatment and complete work up to also assess her memory and cognition. We discussed restarting abilify, which was started while she was in the ED- will titrate dose. 08/[address] shows atrophy. pending MOCA/ACL. continue abilify but may increase and add low dose ativan. 08/26 will increased abilify to 15mg po daily. will add low dose ativan- wonder if it helps with delayed response, and some staring. 08/27: T102, URI Sx. influenza A POS. UA NEG. tamiflu, droplet precautions. increase HS ativan to 1 mg. otherwise continue prior mgmt. 08/28: no requests or complaints, appears drained, resting in bed. continue current mgmt. 08/29- continue to present febrile, this AM 101.F, O2sat on RA 94%, limited oral intake yesterday, ordered labs to monitor dehydration. pt after encouragement, drinking cup of orange juice, some water, bananas and saltine crackers. pending labs. 08/30 continue tx. afebrile today for most of the day. O2sat on RA 96%. less cough, no signs of respiratory distress. taking medications. 08/31 family meeting- discussed filing for guardianship, she is currently taking medications. no longer symptomatic in terms of Influenza. afebrile, no respiratory distress. 09/01 continue tx. will complete guardianship papers 09/02 guardianship filed. continue tx. started on namenda target abulia. abilify increased to 20mg po daily. 09/03 continue tx. 09/04 continue tx. 09/05 continue tx. 09/06 continue tx. 09/07 continue tx. 09/08: stable. no questions or complaints. continue current mgmt. 09/09 will increase abilify to 30mg po daily. 09/10/2024 Question if increase Abilify is worsening blunting and bulimia 09/11/2024 Continue Abilify might consider Latuda Provigil unclear what patient's baseline is 09/12 continue tx. 09/13 continue tx. 09/14 continue tx. 09/15 continue tx. 09/16 continue tx. VS stable. 09/17 Patient presents as suspicious and guarded with sign writer hand. Patient kind of walking out of her room but at the side of sign writer hand, backs up into her room, then walks out a little then backs up a little... She is vague with sign writer hand but denies any psychiatric symptoms. -taking meds 09/18 paranoid, guarded; says yes to dysuria. Started on Ceftin for UTI 09/20 keep same treatment 09/22 keep same treatment 09/23 keep same treatment 09/24: continue current mgmt. stable, safe. no behavioral concerns. 09/25: no change from yesterday. 09/26 continue tx. awaiting guardianship 09/27 continue tx. 09/28 continue tx. 09/29 continue tx. 09/30 continue tx. 10/02 Nursing reports that patient was upset today because she urinated on herself . She said I do not want to live like this though denied any SI. Patient upset that she often smells like urine. On approach however as sign writer hand inquired, she said that today was an easier day.. and Had no concerns. 10/03: stable, no change in presentation. continue current mgmt. 10/04: stable. continue current mgmt. awaiting SNF placement and guardian. 10/05: no change in presentation or plan. 10/06: observed eating in milieu, appeared to have finished her plate and was in good spirits. continue current mgmt. 10/07/2024 Patient with no current discharge plan pending guardianship [employer] application. Patient's mood is flat somewhat apathetic but stable. No lower level of care currently available. 10/09: no change in presentation. colace 100 BID and lac hydrin to feet added. 10/10/2024 Patient essentially stable no change no lower level of care available for discharge discharge planning continues 10/11/2024 Continue plan of care no less restrictive place to discharge 10/12: no change in status or plan. 10/14: no change in status or plan. 10/15: Continue current plans and regimen 10/16: Continue current plans and regimen 10/17: Continue current treatment plan -vitals WNL -no new labs 10/18 Continue current plan of care patient with chronic negative symptoms limited positive symptoms unable to care for self alone in the community Discharge planning continues no less restrictive setting available this time Reason for continued inpatient stay Substantial Risk for: inability to function, rapid decompensation and med/psych decompensation Time Spent With Patient Time: Total time managing care of this patient today ____ minutes.
[2024-10-19 09:08] VITALS: BP 127/76; PULSE 98; RESP 18; TEMP 36; O2SAT 99
[2024-10-19] MEDS: Ammonium Lactate 12 % Lotion 226 GM BOTTLE 1 APPL TOPICAL ×2 (09:33→20:52)
[2024-10-19] MEDS: ARIPiprazole 30 MG TABLET PO (09:33)
[2024-10-19 20:00] VITALS: BP 114/57; PULSE 88; RESP 16; TEMP 36.6; O2SAT 96
--- NOTE | 2024-10-19 21:07 | HO.PSYCHPN ---
Subjective Subjective Reason For Visit: bipolar 1 disorder current or most recent epi Diagnostics Vital Signs (24Hr): Vital Signs - 24 hr 10/19/24 09:08 Temperature 96.8 F Pulse Rate 98 Respiratory Rate 18 Blood Pressure 127/76 Pulse Oximetry 99 Oxygen Delivery Method Room Air BMI result Body Mass Index 21.4 Labs 08/27/24 10:00 08/29/24 17:32 Imaging Radiology Impressions: ITS Impressions Head CT 08/25/24 11:33 IMPRESSION: No acute intracranial abnormality. Electronically signed by: Cj Colunga MD 08/25/2024 12:[address] [facility] Medications Medications Current Medications Acetaminophen (Acetaminophen 325 Mg Tablet) 650 mg PO Q6H PRN PRN Reason: Headache/Pain, Scale 1-10 Last Admin: 10/11/24 20:15 Dose: 650 mg Al Hydroxide/Mg Hydroxide (Magnesium Hydrox/Alum Hydrox 30 Ml Oral.Susp) 30 ml PO Q6H PRN PRN Reason: Heartburn/Nausea Aripiprazole (Aripiprazole 30 Mg Tablet) 30 mg PO DAILY [facility] Last Admin: 10/19/24 09:33 Dose: 30 mg Benzocaine (Throat Lozenge, Medicated Lozenge) 1 lozenge MUCOUS MEM Q1H PRN PRN Reason: Sore Throat Last Admin: 09/01/24 06:09 Dose: 1 lozenge Docusate Sodium (Docusate Sodium 100 Mg Capsule) 100 mg PO BID [facility] Last Admin: 10/19/24 20:53 Dose: 100 mg Guaifenesin/Dextromethorphan (Guaifenesin Dm 200/20/10 Ml 10 Ml Syrup) 10 ml PO Q4H PRN PRN Reason: Cough Last Admin: 08/30/24 05:47 Dose: 10 ml Lactic Acid (Ammonium Lactate 12 % Lotion 226 Gm Bottle) 1 appl TOPICAL BID [facility]; Protocol Last Admin: 10/19/24 20:52 Dose: 1 appl Levothyroxine Sodium (Levothyroxine Sodium 75 Mcg Tablet) 75 mcg PO DAILY@0630 [facility] Last Admin: 10/19/24 06:15 Dose: 75 mcg Lidocaine/Diphenhydr/Alum/Mg/Simeth (Mag&Al/Sim/Diphenhyd/Lidocaine 10 Ml Oral.Susp) 10 ml PO Q6H PRN; Protocol PRN Reason: Painful Gums Last Admin: 08/26/24 13:38 Dose: 10 ml Magnesium Hydroxide (Milk Of Magnesia 30 Ml Oral.Susp) 30 ml PO DAILY PRN PRN Reason: Constipation Memantine (Memantine Hcl 5 Mg Tablet) 5 mg PO DAILY [facility] Last Admin: 10/19/24 09:33 Dose: 5 mg Olanzapine (Olanzapine Odt 10 Mg Tab.Rapdis) 5 mg TRANSLINGU Q6H PRN PRN Reason: Agitation Pravastatin Sodium (Pravastatin Sodium 40 Mg Tablet) 40 mg PO BEDTIME [facility] Last Admin: 10/19/24 20:52 Dose: 40 mg Vitamin D (Cholecalciferol (Vitamin D3) 25 Mcg Tablet) 50 mcg PO DAILY [facility] Last Admin: 10/19/24 09:33 Dose: 50 mcg Allergies Allergies Allergy/AdvReac Type Severity Reaction Status Date / Time meperidine [From Demerol] AdvReac Intermediate Rash Verified 08/23/24 19:34 morphine AdvReac Intermediate Rash Verified 08/23/24 19:35 Sulfa (Sulfonamide AdvReac Intermediate Rash Verified 08/23/24 19:36 Antibiotics) Assessment & Plan Assessment & Plan (1) Schizoaffective disorder: Status: Acute Code(s): F25.9 - Schizoaffective disorder, unspecified Plan Ms. Thomas is a 69 year-old woman with hx of Bipolar Disorder, she currently presents with several symptoms suggestive of negative symptoms seem usually in schizoaffective disorder including constricted affect, abulia (some acknowledgment that she needed to initiate certain activities like going to dentist but still not doing so for unclear reasons). No overt paranoid delusions, her delayed response may be signs of thought blocking and underlying psychosis. She is in agreement to receive treatment and complete work up to also assess her memory and cognition. We discussed restarting abilify, which was started while she was in the ED- will titrate dose. 08/[address] shows atrophy. pending MOCA/ACL. continue abilify but may increase and add low dose ativan. 08/26 will increased abilify to 15mg po daily. will add low dose ativan- wonder if it helps with delayed response, and some staring. 08/27: T102, URI Sx. influenza A POS. UA NEG. tamiflu, droplet precautions. increase HS ativan to 1 mg. otherwise continue prior mgmt. 08/28: no requests or complaints, appears drained, resting in bed. continue current mgmt. 08/29- continue to present febrile, this AM 101.F, O2sat on RA 94%, limited oral intake yesterday, ordered labs to monitor dehydration. pt after encouragement, drinking cup of orange juice, some water, bananas and saltine crackers. pending labs. 08/30 continue tx. afebrile today for most of the day. O2sat on RA 96%. less cough, no signs of respiratory distress. taking medications. 08/31 family meeting- discussed filing for guardianship, she is currently taking medications. no longer symptomatic in terms of Influenza. afebrile, no respiratory distress. 09/01 continue tx. will complete guardianship papers 09/02 guardianship filed. continue tx. started on namenda target abulia. abilify increased to 20mg po daily. 09/03 continue tx. 09/04 continue tx. 09/05 continue tx. 09/06 continue tx. 09/07 continue tx. 09/08: stable. no questions or complaints. continue current mgmt. 09/09 will increase abilify to 30mg po daily. 09/10/2024 Question if increase Abilify is worsening blunting and bulimia 09/11/2024 Continue Abilify might consider Latuda Provigil unclear what patient's baseline is 09/12 continue tx. 09/13 continue tx. 09/14 continue tx. 09/15 continue tx. 09/16 continue tx. VS stable. 09/17 Patient presents as suspicious and guarded with real estate underwriter. Patient kind of walking out of her room but at the side of real estate underwriter, backs up into her room, then walks out a little then backs up a little... She is vague with real estate underwriter but denies any psychiatric symptoms. -taking meds 09/18 paranoid, guarded; says yes to dysuria. Started on Ceftin for UTI 09/20 keep same treatment 09/22 keep same treatment 09/23 keep same treatment 09/24: continue current mgmt. stable, safe. no behavioral concerns. 09/25: no change from yesterday. 09/26 continue tx. awaiting guardianship 09/27 continue tx. 09/28 continue tx. 09/29 continue tx. 09/30 continue tx. 10/02 Nursing reports that patient was upset today because she urinated on herself . She said I do not want to live like this though denied any SI. Patient upset that she often smells like urine. On approach however as real estate underwriter inquired, she said that today was an easier day.. and Had no concerns. 10/03: stable, no change in presentation. continue current mgmt. 10/04: stable. continue current mgmt. awaiting SNF placement and guardian. 10/05: no change in presentation or plan. 10/06: observed eating in milieu, appeared to have finished her plate and was in good spirits. continue current mgmt. 10/07/2024 Patient with no current discharge plan pending guardianship [employer] application. Patient's mood is flat somewhat apathetic but stable. No lower level of care currently available. 10/09: no change in presentation. colace 100 BID and lac hydrin to feet added. 10/10/2024 Patient essentially stable no change no lower level of care available for discharge discharge planning continues 10/11/2024 Continue plan of care no less restrictive place to discharge 10/12: no change in status or plan. 10/14: no change in status or plan. 10/15: Continue current plans and regimen 10/16: Continue current plans and regimen 10/17: Continue current treatment plan -vitals WNL -no new labs 10/18 Continue current plan of care patient with chronic negative symptoms limited positive symptoms unable to care for self alone in the community Discharge planning continues no less restrictive setting available this time Time Spent With Patient Time: Total time managing care of this patient today ____ minutes.
[2024-10-20 09:14] VITALS: BP 112/62; PULSE 89; RESP 16; TEMP 36.6; O2SAT 97
[2024-10-20 10:11] VITALS: BMI 21.1
[2024-10-20] MEDS: ARIPiprazole 30 MG TABLET PO (11:50)
[2024-10-20] MEDS: Ammonium Lactate 12 % Lotion 226 GM BOTTLE 1 APPL TOPICAL ×2 (12:42→22:20)
--- NOTE | 2024-10-20 15:30 | P.PNPSI_ITS ---
Subjective Subjective Date of Service: 10/19/24 Reason For Visit: bipolar 1 disorder current or most recent epi Interim History: Patient seen case reviewed in treatment planning chart reviewed. Patient often isolative generally offers no complaints Medication Compliance: Yes Mental Status Exam Mental Status Exam Narrative: Appearance: Flat in appearance Behavior: guarded, Psychomotor: some retardation Speech: clear, some latency, minimally spontaneous TP: [place] poverty of content TC: no questions or complaints Mood: ok Affect:constricted, anxious SI: Denied HI: Denies VH/AH: denies Delusions: no overt delusional content noted or reported Insight/judgment: impaired Diagnostics Vital Signs (24Hr): Vital Signs - 24 hr 10/19/24 20:00 10/20/24 09:14 Temperature 97.8 F 97.8 F Pulse Rate 88 89 Respiratory Rate 16 16 Blood Pressure 114/57 L 112/62 Pulse Oximetry 96 97 Oxygen Delivery Method Room Air Room Air BMI result Body Mass Index 21.1 Labs 08/27/24 10:00 08/29/24 17:32 Imaging Radiology Impressions: ITS Impressions Head CT 08/25/24 11:33 IMPRESSION: No acute intracranial abnormality. Electronically signed by: Cj Colunga MD 08/25/2024 12:12 PM [facility] Medications Medications Current Medications Acetaminophen (Acetaminophen 325 Mg Tablet) 650 mg PO Q6H PRN PRN Reason: Headache/Pain, Scale 1-10 Last Admin: 10/11/24 20:15 Dose: 650 mg Al Hydroxide/Mg Hydroxide (Magnesium Hydrox/Alum Hydrox 30 Ml Oral.Susp) 30 ml PO Q6H PRN PRN Reason: Heartburn/Nausea Aripiprazole (Aripiprazole 30 Mg Tablet) 30 mg PO DAILY [facility] Last Admin: 10/20/24 11:50 Dose: 30 mg Benzocaine (Throat Lozenge, Medicated Lozenge) 1 lozenge MUCOUS MEM Q1H PRN PRN Reason: Sore Throat Last Admin: 09/01/24 06:09 Dose: 1 lozenge Docusate Sodium (Docusate Sodium 100 Mg Capsule) 100 mg PO BID [facility] Last Admin: 10/20/24 09:15 Dose: 100 mg Guaifenesin/Dextromethorphan (Guaifenesin Dm 200/20/10 Ml 10 Ml Syrup) 10 ml PO Q4H PRN PRN Reason: Cough Last Admin: 08/30/24 05:47 Dose: 10 ml Lactic Acid (Ammonium Lactate 12 % Lotion 226 Gm Bottle) 1 appl TOPICAL BID [facility]; Protocol Last Admin: 10/20/24 12:42 Dose: 1 appl Levothyroxine Sodium (Levothyroxine Sodium 75 Mcg Tablet) 75 mcg PO DAILY@0630 [facility] Last Admin: 10/20/24 06:00 Dose: 75 mcg Lidocaine/Diphenhydr/Alum/Mg/Simeth (Mag&Al/Sim/Diphenhyd/Lidocaine 10 Ml Oral.Susp) 10 ml PO Q6H PRN; Protocol PRN Reason: Painful Gums Last Admin: 08/26/24 13:38 Dose: 10 ml Magnesium Hydroxide (Milk Of Magnesia 30 Ml Oral.Susp) 30 ml PO DAILY PRN PRN Reason: Constipation Memantine (Memantine Hcl 5 Mg Tablet) 5 mg PO DAILY [facility] Last Admin: 10/20/24 09:15 Dose: 5 mg Olanzapine (Olanzapine Odt 10 Mg Tab.Rapdis) 5 mg TRANSLINGU Q6H PRN PRN Reason: Agitation Pravastatin Sodium (Pravastatin Sodium 40 Mg Tablet) 40 mg PO BEDTIME [facility] Last Admin: 10/19/24 20:52 Dose: 40 mg Vitamin D (Cholecalciferol (Vitamin D3) 25 Mcg Tablet) 50 mcg PO DAILY [facility] Last Admin: 10/20/24 09:15 Dose: 50 mcg Allergies Allergies Allergy/AdvReac Type Severity Reaction Status Date / Time meperidine [From Demerol] AdvReac Intermediate Rash Verified 08/23/24 19:34 morphine AdvReac Intermediate Rash Verified 08/23/24 19:35 Sulfa (Sulfonamide AdvReac Intermediate Rash Verified 08/23/24 19:36 Antibiotics) Assessment & Plan Assessment & Plan (1) Schizoaffective disorder: Status: Acute Code(s): F25.9 - Schizoaffective disorder, unspecified Plan Continue plan of care not overtly psychotic or agitated flat withdrawn discharge planning continues. No less restrictive setting consider Namenda for apathy Informed Consent: does not understand Reason for continued inpatient stay Substantial Risk for: inability to function and rapid decompensation Time Spent With Patient Time: Total time managing care of this patient today ____ minutes.
--- NOTE | 2024-10-20 15:33 | P.PNPSI_ITS ---
Subjective Subjective Date of Service: 10/20/24 Reason For Visit: bipolar 1 disorder current or most recent epi Subjective Notes: Conditional Voluntary Interim History: Pt seen chart reviewed case reviewed tx planning Medication Compliance: Yes Mental Status Exam Mental Status Exam Narrative: Appearance: Flat in appearance Behavior: guarded, Psychomotor: some retardation Speech: clear, some latency, minimally spontaneous TP: [place] poverty of content TC: no questions or complaints Mood: ok Affect:constricted, anxious SI: Denied HI: Denies VH/AH: denies Delusions: no overt delusional content noted or reported Insight/judgment: impaired Diagnostics Vital Signs (24Hr): Vital Signs - 24 hr 10/19/24 20:00 10/20/24 09:14 Temperature 97.8 F 97.8 F Pulse Rate 88 89 Respiratory Rate 16 16 Blood Pressure 114/57 L 112/62 Pulse Oximetry 96 97 Oxygen Delivery Method Room Air Room Air BMI result Body Mass Index 21.1 Labs 08/27/24 10:00 08/29/24 17:32 Imaging Radiology Impressions: ITS Impressions Head CT 08/25/24 11:33 IMPRESSION: No acute intracranial abnormality. Electronically signed by: Cj Colunga MD 08/25/2024 12:12 PM [facility] Medications Medications Current Medications Acetaminophen (Acetaminophen 325 Mg Tablet) 650 mg PO Q6H PRN PRN Reason: Headache/Pain, Scale 1-10 Last Admin: 10/11/24 20:15 Dose: 650 mg Al Hydroxide/Mg Hydroxide (Magnesium Hydrox/Alum Hydrox 30 Ml Oral.Susp) 30 ml PO Q6H PRN PRN Reason: Heartburn/Nausea Aripiprazole (Aripiprazole 30 Mg Tablet) 30 mg PO DAILY [facility] Last Admin: 10/20/24 11:50 Dose: 30 mg Benzocaine (Throat Lozenge, Medicated Lozenge) 1 lozenge MUCOUS MEM Q1H PRN PRN Reason: Sore Throat Last Admin: 09/01/24 06:09 Dose: 1 lozenge Docusate Sodium (Docusate Sodium 100 Mg Capsule) 100 mg PO BID [facility] Last Admin: 10/20/24 09:15 Dose: 100 mg Guaifenesin/Dextromethorphan (Guaifenesin Dm 200/20/10 Ml 10 Ml Syrup) 10 ml PO Q4H PRN PRN Reason: Cough Last Admin: 08/30/24 05:47 Dose: 10 ml Lactic Acid (Ammonium Lactate 12 % Lotion 226 Gm Bottle) 1 appl TOPICAL BID [facility]; Protocol Last Admin: 10/20/24 12:42 Dose: 1 appl Levothyroxine Sodium (Levothyroxine Sodium 75 Mcg Tablet) 75 mcg PO DAILY@0630 [facility] Last Admin: 10/20/24 06:00 Dose: 75 mcg Lidocaine/Diphenhydr/Alum/Mg/Simeth (Mag&Al/Sim/Diphenhyd/Lidocaine 10 Ml Oral.Susp) 10 ml PO Q6H PRN; Protocol PRN Reason: Painful Gums Last Admin: 08/26/24 13:38 Dose: 10 ml Magnesium Hydroxide (Milk Of Magnesia 30 Ml Oral.Susp) 30 ml PO DAILY PRN PRN Reason: Constipation Memantine (Memantine Hcl 5 Mg Tablet) 5 mg PO DAILY [facility] Last Admin: 10/20/24 09:15 Dose: 5 mg Olanzapine (Olanzapine Odt 10 Mg Tab.Rapdis) 5 mg TRANSLINGU Q6H PRN PRN Reason: Agitation Pravastatin Sodium (Pravastatin Sodium 40 Mg Tablet) 40 mg PO BEDTIME [facility] Last Admin: 10/19/24 20:52 Dose: 40 mg Vitamin D (Cholecalciferol (Vitamin D3) 25 Mcg Tablet) 50 mcg PO DAILY [facility] Last Admin: 10/20/24 09:15 Dose: 50 mcg Allergies Allergies Allergy/AdvReac Type Severity Reaction Status Date / Time meperidine [From Demerol] AdvReac Intermediate Rash Verified 08/23/24 19:34 morphine AdvReac Intermediate Rash Verified 08/23/24 19:35 Sulfa (Sulfonamide AdvReac Intermediate Rash Verified 08/23/24 19:36 Antibiotics) Assessment & Plan Assessment & Plan (1) Schizoaffective disorder: Status: Acute Code(s): F25.9 - Schizoaffective disorder, unspecified Plan Continue plan of care not overtly psychotic or agitated flat withdrawn discharge planning continues. No less restrictive setting consider Namenda for apathy Patient educated on: diagnosis and medication risk/benefits Informed Consent: further education needed Reason for continued inpatient stay Substantial Risk for: inability to function and rapid decompensation Time Spent With Patient Time: Total time managing care of this patient today ____ minutes.
[2024-10-20 20:00] VITALS: BP 124/63; PULSE 77; RESP 15; TEMP 37; O2SAT 99
[2024-10-21 09:07] VITALS: BP 105/55; PULSE 84; RESP 15; TEMP 37; O2SAT 99
[2024-10-21] MEDS: ARIPiprazole 30 MG TABLET PO (09:08)
[2024-10-21] MEDS: Ammonium Lactate 12 % Lotion 226 GM BOTTLE 1 APPL TOPICAL ×2 (11:06→21:23)
[2024-10-21 20:00] VITALS: BP 130/60; PULSE 85; RESP 18; TEMP 36.2; O2SAT 100
--- NOTE | 2024-10-21 21:27 | HO.PSYCHPN ---
Subjective Subjective Date of Service: 10/21/24 Reason For Visit: bipolar 1 disorder current or most recent epi Healthcare Proxy: Yes Interim History: Patient seen psychiatric follow-up case reviewed treatment planning case discussed with nursing staff. Patient remains calm somewhat apathetic generally no significant complaints mild muscle pain No gross psychosis noted Medication Compliance: Yes Mental Status Exam Mental Status Exam Narrative: Appearance: Flat in appearance Behavior: guarded, Psychomotor: some retardation Speech: clear, some latency, minimally spontaneous TP: [place] poverty of content TC: no questions or complaints Mood: ok Affect:constricted, anxious SI: Denied HI: Denies VH/AH: denies Delusions: no overt delusional content noted or reported Insight/judgment: impaired Diagnostics Vital Signs (24Hr): Vital Signs - 24 hr 10/21/24 09:07 Temperature 98.6 F Pulse Rate 84 Respiratory Rate 15 Blood Pressure 105/55 L Pulse Oximetry 99 Oxygen Delivery Method Room Air BMI result Body Mass Index 21.1 Labs 08/27/24 10:00 08/29/24 17:32 Imaging Radiology Impressions: ITS Impressions Head CT 08/25/24 11:33 IMPRESSION: No acute intracranial abnormality. Electronically signed by: Cj Colunga MD 08/25/2024 12:12 PM [facility] Medications Medications Current Medications Acetaminophen (Acetaminophen 325 Mg Tablet) 650 mg PO Q6H PRN PRN Reason: Headache/Pain, Scale 1-10 Last Admin: 10/11/24 20:15 Dose: 650 mg Al Hydroxide/Mg Hydroxide (Magnesium Hydrox/Alum Hydrox 30 Ml Oral.Susp) 30 ml PO Q6H PRN PRN Reason: Heartburn/Nausea Aripiprazole (Aripiprazole 30 Mg Tablet) 30 mg PO DAILY [facility] Last Admin: 10/21/24 09:08 Dose: 30 mg Benzocaine (Throat Lozenge, Medicated Lozenge) 1 lozenge MUCOUS MEM Q1H PRN PRN Reason: Sore Throat Last Admin: 09/01/24 06:09 Dose: 1 lozenge Docusate Sodium (Docusate Sodium 100 Mg Capsule) 100 mg PO BID [facility] Last Admin: 10/21/24 21:22 Dose: 100 mg Guaifenesin/Dextromethorphan (Guaifenesin Dm 200/20/10 Ml 10 Ml Syrup) 10 ml PO Q4H PRN PRN Reason: Cough Last Admin: 08/30/24 05:47 Dose: 10 ml Lactic Acid (Ammonium Lactate 12 % Lotion 226 Gm Bottle) 1 appl TOPICAL BID [facility]; Protocol Last Admin: 10/21/24 21:23 Dose: 1 appl Levothyroxine Sodium (Levothyroxine Sodium 75 Mcg Tablet) 75 mcg PO DAILY@0630 [facility] Last Admin: 10/21/24 05:51 Dose: 75 mcg Lidocaine/Diphenhydr/Alum/Mg/Simeth (Mag&Al/Sim/Diphenhyd/Lidocaine 10 Ml Oral.Susp) 10 ml PO Q6H PRN; Protocol PRN Reason: Painful Gums Last Admin: 08/26/24 13:38 Dose: 10 ml Magnesium Hydroxide (Milk Of Magnesia 30 Ml Oral.Susp) 30 ml PO DAILY PRN PRN Reason: Constipation Memantine (Memantine Hcl 5 Mg Tablet) 5 mg PO DAILY [facility] Last Admin: 10/21/24 09:08 Dose: 5 mg Olanzapine (Olanzapine Odt 10 Mg Tab.Rapdis) 5 mg TRANSLINGU Q6H PRN PRN Reason: Agitation Pravastatin Sodium (Pravastatin Sodium 40 Mg Tablet) 40 mg PO BEDTIME [facility] Last Admin: 10/21/24 21:22 Dose: 40 mg Vitamin D (Cholecalciferol (Vitamin D3) 25 Mcg Tablet) 50 mcg PO DAILY [facility] Last Admin: 10/21/24 09:09 Dose: 50 mcg Allergies Allergies Allergy/AdvReac Type Severity Reaction Status Date / Time meperidine [From Demerol] AdvReac Intermediate Rash Verified 08/23/24 19:34 morphine AdvReac Intermediate Rash Verified 08/23/24 19:35 Sulfa (Sulfonamide AdvReac Intermediate Rash Verified 08/23/24 19:36 Antibiotics) Assessment & Plan Assessment & Plan (1) Schizoaffective disorder: Status: Acute Code(s): F25.9 - Schizoaffective disorder, unspecified Plan Continue plan of care not overtly psychotic or agitated flat withdrawn discharge planning continues. No less restrictive setting consider Namenda for apathy Informed Consent: does not understand Reason for continued inpatient stay Substantial Risk for: inability to function and rapid decompensation Time Spent With Patient Time: Total time managing care of this patient today ____ minutes.
[2024-10-22 09:22] VITALS: BP 118/58; PULSE 86; RESP 16; TEMP 36.3; O2SAT 95
[2024-10-22] MEDS: Ammonium Lactate 12 % Lotion 226 GM BOTTLE 1 APPL TOPICAL ×2 (09:24→20:54)
[2024-10-22] MEDS: ARIPiprazole 30 MG TABLET PO (09:24)
--- NOTE | 2024-10-22 13:39 | HO.PSYCHPN ---
Subjective Subjective Date of Service: 10/22/24 Reason For Visit: bipolar 1 disorder current or most recent epi Interim History: Patient seen. Discussed with team. Isolates in room. Some sleep difficulty. Denies depression. Denies SI Adherent to medications. No behavioral outbursts. Review of Systems Review of Systems Pt denies chest pain. No abdominal pain. No diarrhea or constipation. Yes all other systems are reviewed and are negative Mental Status Exam Mental Status Exam Narrative: Appearance: Flat in appearance Behavior: guarded, Psychomotor: some retardation Speech: clear, some latency, minimally spontaneous TP: [place] poverty of content TC: no questions or complaints Mood: ok Affect:constricted, anxious SI: Denied HI: Denies VH/AH: denies Delusions: no overt delusional content noted or reported Insight/judgment: impaired Patient Appearance: Appropriate Patient Orientation: Person Level of Consciousness: Awake and Appropriate Patient Behavior: Guarded and Passive Mood Description: Withdrawn Affect Description: Constricted Patient Cognition Impaired: Yes Ability to Follow Directions: Good Speech Pattern: Clear Diagnostics Vital Signs (24Hr): Vital Signs - 24 hr 10/21/24 20:00 10/22/24 09:22 Temperature 97.1 F 97.3 F Pulse Rate 85 86 Respiratory Rate 18 16 Blood Pressure 130/60 118/58 L Pulse Oximetry 100 95 Oxygen Delivery Method Room Air Room Air BMI result Body Mass Index 21.1 Labs 08/27/24 10:00 08/29/24 17:32 Imaging Radiology Impressions: ITS Impressions Head CT 08/25/24 11:33 IMPRESSION: No acute intracranial abnormality. Electronically signed by: Cj Colunga MD 08/25/2024 12:12 PM [facility] Medications Medications Current Medications Acetaminophen (Acetaminophen 325 Mg Tablet) 650 mg PO Q6H PRN PRN Reason: Headache/Pain, Scale 1-10 Last Admin: 10/11/24 20:15 Dose: 650 mg Al Hydroxide/Mg Hydroxide (Magnesium Hydrox/Alum Hydrox 30 Ml Oral.Susp) 30 ml PO Q6H PRN PRN Reason: Heartburn/Nausea Aripiprazole (Aripiprazole 30 Mg Tablet) 30 mg PO DAILY [facility] Last Admin: 10/22/24 09:24 Dose: 30 mg Benzocaine (Throat Lozenge, Medicated Lozenge) 1 lozenge MUCOUS MEM Q1H PRN PRN Reason: Sore Throat Last Admin: 09/01/24 06:09 Dose: 1 lozenge Docusate Sodium (Docusate Sodium 100 Mg Capsule) 100 mg PO BID [facility] Last Admin: 10/22/24 09:24 Dose: 100 mg Guaifenesin/Dextromethorphan (Guaifenesin Dm 200/20/10 Ml 10 Ml Syrup) 10 ml PO Q4H PRN PRN Reason: Cough Last Admin: 08/30/24 05:47 Dose: 10 ml Lactic Acid (Ammonium Lactate 12 % Lotion 226 Gm Bottle) 1 appl TOPICAL BID [facility]; Protocol Last Admin: 10/22/24 09:24 Dose: 1 appl Levothyroxine Sodium (Levothyroxine Sodium 75 Mcg Tablet) 75 mcg PO DAILY@0630 [facility] Last Admin: 10/22/24 06:02 Dose: 75 mcg Lidocaine/Diphenhydr/Alum/Mg/Simeth (Mag&Al/Sim/Diphenhyd/Lidocaine 10 Ml Oral.Susp) 10 ml PO Q6H PRN; Protocol PRN Reason: Painful Gums Last Admin: 08/26/24 13:38 Dose: 10 ml Magnesium Hydroxide (Milk Of Magnesia 30 Ml Oral.Susp) 30 ml PO DAILY PRN PRN Reason: Constipation Memantine (Memantine Hcl 5 Mg Tablet) 5 mg PO DAILY [facility] Last Admin: 10/22/24 09:24 Dose: 5 mg Olanzapine (Olanzapine Odt 10 Mg Tab.Rapdis) 5 mg TRANSLINGU Q6H PRN PRN Reason: Agitation Pravastatin Sodium (Pravastatin Sodium 40 Mg Tablet) 40 mg PO BEDTIME [facility] Last Admin: 10/21/24 21:22 Dose: 40 mg Vitamin D (Cholecalciferol (Vitamin D3) 25 Mcg Tablet) 50 mcg PO DAILY [facility] Last Admin: 10/22/24 09:24 Dose: 50 mcg Allergies Allergies Allergy/AdvReac Type Severity Reaction Status Date / Time meperidine [From Demerol] AdvReac Intermediate Rash Verified 08/23/24 19:34 morphine AdvReac Intermediate Rash Verified 08/23/24 19:35 Sulfa (Sulfonamide AdvReac Intermediate Rash Verified 08/23/24 19:36 Antibiotics) Assessment & Plan Assessment & Plan (1) Schizoaffective disorder: Status: Acute Code(s): F25.9 - Schizoaffective disorder, unspecified Plan Continue plan of care not overtly psychotic or agitated flat withdrawn discharge planning continues. No less restrictive setting consider Namenda for apathy 10/22: continue current management and treatment plan. Reason for continued inpatient stay Substantial Risk for: inability to function and rapid decompensation Time Spent With Patient Time: Total time managing care of this patient today ____ minutes.
[2024-10-22 19:35] VITALS: BP 103/57; PULSE 80; RESP 16; TEMP 36.5; O2SAT 98
[2024-10-23 09:30] VITALS: BP 168/72; PULSE 65; RESP 18; TEMP 36.1; O2SAT 99
[2024-10-23] MEDS: Ammonium Lactate 12 % Lotion 226 GM BOTTLE 1 APPL TOPICAL ×2 (09:36→20:22)
[2024-10-23] MEDS: ARIPiprazole 30 MG TABLET PO (09:37)
--- NOTE | 2024-10-23 14:24 | P.PNPSI_ITS ---
Subjective Subjective Date of Service: 10/23/24 Reason For Visit: bipolar 1 disorder current or most recent epi Interim History: Patient seen. Discussed with team. Isolates in room. Some sleep difficulty. Denies depression. Denies SI Adherent to medications. No behavioral outbursts. Review of Systems Review of Systems Pt denies chest pain. No abdominal pain. No diarrhea or constipation. Yes all other systems are reviewed and are negative Mental Status Exam Mental Status Exam Narrative: Appearance: Flat in appearance Behavior: guarded, Psychomotor: some retardation Speech: clear, some latency, minimally spontaneous TP: [place] poverty of content TC: no questions or complaints Mood: ok Affect:constricted, anxious SI: Denied HI: Denies VH/AH: denies Delusions: no overt delusional content noted or reported Insight/judgment: impaired Patient Appearance: Appropriate Patient Orientation: Person Level of Consciousness: Awake and Appropriate Patient Behavior: Guarded and Passive Mood Description: Withdrawn Affect Description: Constricted Patient Cognition Impaired: Yes Ability to Follow Directions: Good Speech Pattern: Clear Diagnostics Vital Signs (24Hr): Vital Signs - 24 hr 10/22/24 19:35 10/23/24 09:30 Temperature 97.7 F 96.9 F Pulse Rate 80 65 Respiratory Rate 16 18 Blood Pressure 103/57 L 168/72 H Pulse Oximetry 98 99 Oxygen Delivery Method Room Air Room Air BMI result Body Mass Index 21.1 Labs 08/27/24 10:00 08/29/24 17:32 Imaging Radiology Impressions: ITS Impressions Head CT 08/25/24 11:33 IMPRESSION: No acute intracranial abnormality. Electronically signed by: Cj Colunga MD 08/25/2024 12:12 PM [facility] Medications Medications Current Medications Acetaminophen (Acetaminophen 325 Mg Tablet) 650 mg PO Q6H PRN PRN Reason: Headache/Pain, Scale 1-10 Last Admin: 10/11/24 20:15 Dose: 650 mg Al Hydroxide/Mg Hydroxide (Magnesium Hydrox/Alum Hydrox 30 Ml Oral.Susp) 30 ml PO Q6H PRN PRN Reason: Heartburn/Nausea Aripiprazole (Aripiprazole 30 Mg Tablet) 30 mg PO DAILY [facility] Last Admin: 10/23/24 09:37 Dose: 30 mg Benzocaine (Throat Lozenge, Medicated Lozenge) 1 lozenge MUCOUS MEM Q1H PRN PRN Reason: Sore Throat Last Admin: 09/01/24 06:09 Dose: 1 lozenge Docusate Sodium (Docusate Sodium 100 Mg Capsule) 100 mg PO BID [facility] Last Admin: 10/23/24 09:37 Dose: 100 mg Guaifenesin/Dextromethorphan (Guaifenesin Dm 200/20/10 Ml 10 Ml Syrup) 10 ml PO Q4H PRN PRN Reason: Cough Last Admin: 08/30/24 05:47 Dose: 10 ml Lactic Acid (Ammonium Lactate 12 % Lotion 226 Gm Bottle) 1 appl TOPICAL BID [facility]; Protocol Last Admin: 10/23/24 09:36 Dose: 1 appl Levothyroxine Sodium (Levothyroxine Sodium 75 Mcg Tablet) 75 mcg PO DAILY@0630 [facility] Last Admin: 10/23/24 05:55 Dose: 75 mcg Lidocaine/Diphenhydr/Alum/Mg/Simeth (Mag&Al/Sim/Diphenhyd/Lidocaine 10 Ml Oral.Susp) 10 ml PO Q6H PRN; Protocol PRN Reason: Painful Gums Last Admin: 08/26/24 13:38 Dose: 10 ml Magnesium Hydroxide (Milk Of Magnesia 30 Ml Oral.Susp) 30 ml PO DAILY PRN PRN Reason: Constipation Memantine (Memantine Hcl 5 Mg Tablet) 5 mg PO DAILY [facility] Last Admin: 10/23/24 09:37 Dose: 5 mg Olanzapine (Olanzapine Odt 10 Mg Tab.Rapdis) 5 mg TRANSLINGU Q6H PRN PRN Reason: Agitation Pravastatin Sodium (Pravastatin Sodium 40 Mg Tablet) 40 mg PO BEDTIME [facility] Last Admin: 10/22/24 20:54 Dose: 40 mg Vitamin D (Cholecalciferol (Vitamin D3) 25 Mcg Tablet) 50 mcg PO DAILY [facility] Last Admin: 10/23/24 09:37 Dose: 50 mcg Allergies Allergies Allergy/AdvReac Type Severity Reaction Status Date / Time meperidine [From Demerol] AdvReac Intermediate Rash Verified 08/23/24 19:34 morphine AdvReac Intermediate Rash Verified 08/23/24 19:35 Sulfa (Sulfonamide AdvReac Intermediate Rash Verified 08/23/24 19:36 Antibiotics) Assessment & Plan Assessment & Plan (1) Schizoaffective disorder: Status: Acute Code(s): F25.9 - Schizoaffective disorder, unspecified Plan Continue plan of care not overtly psychotic or agitated flat withdrawn discharge planning continues. No less restrictive setting consider Namenda for apathy 10/22: continue current management and treatment plan. 10/23: continue current management and treatment plan. Reason for continued inpatient stay Substantial Risk for: inability to function and rapid decompensation Time Spent With Patient Time: Total time managing care of this patient today ____ minutes.
[2024-10-23 20:00] VITALS: BP 127/64; PULSE 90; RESP 16; TEMP 36.6; O2SAT 98
[2024-10-24 08:00] VITALS: BP 115/59; PULSE 79; RESP 16; TEMP 36.6; O2SAT 97
[2024-10-24] MEDS: ARIPiprazole 30 MG TABLET PO (08:23)
[2024-10-24] MEDS: Ammonium Lactate 12 % Lotion 226 GM BOTTLE 1 APPL TOPICAL (08:24)
--- NOTE | 2024-10-24 15:36 | HO.PSYCHPN ---
Subjective Subjective Date of Service: 10/24/24 Reason For Visit: bipolar 1 disorder current or most recent epi Interim History: no change in presentation. no complaints or requests. Mental Status Exam Mental Status Exam Narrative: Appearance: adequately dressed and groomed Behavior: guarded, cautious Psychomotor: some retardation Speech: mostly clear, less latency, minimally spontaneous TP: [place] TC: no questions or complaints Mood: good Affect: Flat SI: none expressed HI: none expressed VH/AH: none evidenced Delusions: no overt delusional content noted or reported Insight/judgment: impaired . Diagnostics Vital Signs (24Hr): Vital Signs - 24 hr 10/23/24 20:00 10/24/24 08:00 Temperature 97.9 F 97.8 F Pulse Rate 90 79 Respiratory Rate 16 16 Blood Pressure 127/64 115/59 L Pulse Oximetry 98 97 Oxygen Delivery Method Room Air Room Air BMI result Body Mass Index 21.1 Labs 08/27/24 10:00 08/29/24 17:32 Imaging Radiology Impressions: ITS Impressions Head CT 08/25/24 11:33 IMPRESSION: No acute intracranial abnormality. Electronically signed by: Cj Colunga MD 08/25/2024 12:12 PM [facility] Medications Medications Current Medications Acetaminophen (Acetaminophen 325 Mg Tablet) 650 mg PO Q6H PRN PRN Reason: Headache/Pain, Scale 1-10 Last Admin: 10/11/24 20:15 Dose: 650 mg Al Hydroxide/Mg Hydroxide (Magnesium Hydrox/Alum Hydrox 30 Ml Oral.Susp) 30 ml PO Q6H PRN PRN Reason: Heartburn/Nausea Aripiprazole (Aripiprazole 30 Mg Tablet) 30 mg PO DAILY [facility] Last Admin: 10/24/24 08:23 Dose: 30 mg Benzocaine (Throat Lozenge, Medicated Lozenge) 1 lozenge MUCOUS MEM Q1H PRN PRN Reason: Sore Throat Last Admin: 09/01/24 06:09 Dose: 1 lozenge Docusate Sodium (Docusate Sodium 100 Mg Capsule) 100 mg PO BID [facility] Last Admin: 10/24/24 08:23 Dose: 100 mg Guaifenesin/Dextromethorphan (Guaifenesin Dm 200/20/10 Ml 10 Ml Syrup) 10 ml PO Q4H PRN PRN Reason: Cough Last Admin: 08/30/24 05:47 Dose: 10 ml Lactic Acid (Ammonium Lactate 12 % Lotion 226 Gm Bottle) 1 appl TOPICAL BID [facility]; Protocol Last Admin: 10/24/24 08:24 Dose: 1 appl Levothyroxine Sodium (Levothyroxine Sodium 75 Mcg Tablet) 75 mcg PO DAILY@0630 [facility] Last Admin: 10/24/24 06:26 Dose: 75 mcg Lidocaine/Diphenhydr/Alum/Mg/Simeth (Mag&Al/Sim/Diphenhyd/Lidocaine 10 Ml Oral.Susp) 10 ml PO Q6H PRN; Protocol PRN Reason: Painful Gums Last Admin: 08/26/24 13:38 Dose: 10 ml Magnesium Hydroxide (Milk Of Magnesia 30 Ml Oral.Susp) 30 ml PO DAILY PRN PRN Reason: Constipation Memantine (Memantine Hcl 5 Mg Tablet) 5 mg PO DAILY [facility] Last Admin: 10/24/24 08:24 Dose: 5 mg Olanzapine (Olanzapine Odt 10 Mg Tab.Rapdis) 5 mg TRANSLINGU Q6H PRN PRN Reason: Agitation Pravastatin Sodium (Pravastatin Sodium 40 Mg Tablet) 40 mg PO BEDTIME [facility] Last Admin: 10/23/24 20:23 Dose: 40 mg Vitamin D (Cholecalciferol (Vitamin D3) 25 Mcg Tablet) 50 mcg PO DAILY [facility] Last Admin: 10/24/24 08:23 Dose: 50 mcg Allergies Allergies Allergy/AdvReac Type Severity Reaction Status Date / Time meperidine [From Demerol] AdvReac Intermediate Rash Verified 08/23/24 19:34 morphine AdvReac Intermediate Rash Verified 08/23/24 19:35 Sulfa (Sulfonamide AdvReac Intermediate Rash Verified 08/23/24 19:36 Antibiotics) Assessment & Plan Assessment & Plan (1) Schizoaffective disorder: Status: Acute Code(s): F25.9 - Schizoaffective disorder, unspecified Plan Continue plan of care not overtly psychotic or agitated flat withdrawn discharge planning continues. No less restrictive setting consider Namenda for apathy 10/22: continue current management and treatment plan. 10/23: continue current management and treatment plan. 10/24: no change in presentation or management. Reason for continued inpatient stay Substantial Risk for: inability to function Time Spent With Patient Time: Total time managing care of this patient today ____ minutes.
[2024-10-24 20:00] VITALS: BP 117/59; PULSE 76; RESP 16; TEMP 36.6; O2SAT 98
[2024-10-25 08:00] VITALS: BP 130/64; PULSE 85; RESP 16; TEMP 36.3; O2SAT 98
[2024-10-25] MEDS: Ammonium Lactate 12 % Lotion 226 GM BOTTLE 1 APPL TOPICAL ×2 (08:04→21:05)
[2024-10-25] MEDS: ARIPiprazole 30 MG TABLET PO (08:06)
--- NOTE | 2024-10-25 12:41 | P.PNPSI_ITS ---
Subjective Subjective Date of Service: 10/25/24 Reason For Visit: bipolar 1 disorder current or most recent epi Interim History: no change in presentation. declines to rest her head today. no questions or complaints. Mental Status Exam Mental Status Exam Narrative: Appearance: adequately dressed and groomed Behavior: guarded, cautious Psychomotor: some retardation Speech: mostly clear, less latency, minimally spontaneous TP: [place] TC: no questions or complaints Mood: good Affect: Flat SI: none expressed HI: none expressed VH/AH: none evidenced Delusions: no overt delusional content noted or reported Insight/judgment: impaired . Diagnostics Vital Signs (24Hr): Vital Signs - 24 hr 10/24/24 20:00 10/25/24 08:00 Temperature 98 F 97.3 F Pulse Rate 76 85 Respiratory Rate 16 16 Blood Pressure 117/59 L 130/64 Pulse Oximetry 98 98 Oxygen Delivery Method Room Air Room Air BMI result Body Mass Index 21.1 Labs 08/27/24 10:00 08/29/24 17:32 Imaging Radiology Impressions: ITS Impressions Head CT 08/25/24 11:33 IMPRESSION: No acute intracranial abnormality. Electronically signed by: Cj Colunga MD 08/25/2024 12:12 PM [facility] [place] Medications Current Medications Acetaminophen (Acetaminophen 325 Mg Tablet) 650 mg PO Q6H PRN PRN Reason: Headache/Pain, Scale 1-10 Last Admin: 10/11/24 20:15 Dose: 650 mg Al Hydroxide/Mg Hydroxide (Magnesium Hydrox/Alum Hydrox 30 Ml Oral.Susp) 30 ml PO Q6H PRN PRN Reason: Heartburn/Nausea Aripiprazole (Aripiprazole 30 Mg Tablet) 30 mg PO DAILY [facility] Last Admin: 10/25/24 08:06 Dose: 30 mg Benzocaine (Throat Lozenge, Medicated Lozenge) 1 lozenge MUCOUS MEM Q1H PRN PRN Reason: Sore Throat Last Admin: 09/01/24 06:09 Dose: 1 lozenge Docusate Sodium (Docusate Sodium 100 Mg Capsule) 100 mg PO BID [facility] Last Admin: 10/25/24 08:06 Dose: 100 mg Guaifenesin/Dextromethorphan (Guaifenesin Dm 200/20/10 Ml 10 Ml Syrup) 10 ml PO Q4H PRN PRN Reason: Cough Last Admin: 08/30/24 05:47 Dose: 10 ml Lactic Acid (Ammonium Lactate 12 % Lotion 226 Gm Bottle) 1 appl TOPICAL BID [facility]; Protocol Last Admin: 10/25/24 08:04 Dose: 1 appl Levothyroxine Sodium (Levothyroxine Sodium 75 Mcg Tablet) 75 mcg PO DAILY@0630 [facility] Last Admin: 10/25/24 05:30 Dose: 75 mcg Lidocaine/Diphenhydr/Alum/Mg/Simeth (Mag&Al/Sim/Diphenhyd/Lidocaine 10 Ml Oral.Susp) 10 ml PO Q6H PRN; Protocol PRN Reason: Painful Gums Last Admin: 08/26/24 13:38 Dose: 10 ml Magnesium Hydroxide (Milk Of Magnesia 30 Ml Oral.Susp) 30 ml PO DAILY PRN PRN Reason: Constipation Memantine (Memantine Hcl 5 Mg Tablet) 5 mg PO DAILY [facility] Last Admin: 10/25/24 08:06 Dose: 5 mg Olanzapine (Olanzapine Odt 10 Mg Tab.Rapdis) 5 mg TRANSLINGU Q6H PRN PRN Reason: Agitation Pravastatin Sodium (Pravastatin Sodium 40 Mg Tablet) 40 mg PO BEDTIME [facility] Last Admin: 10/24/24 20:19 Dose: 40 mg Vitamin D (Cholecalciferol (Vitamin D3) 25 Mcg Tablet) 50 mcg PO DAILY [facility] Last Admin: 10/25/24 08:06 Dose: 50 mcg Allergies Allergies Allergy/AdvReac Type Severity Reaction Status Date / Time meperidine [From Demerol] AdvReac Intermediate Rash Verified 08/23/24 19:34 morphine AdvReac Intermediate Rash Verified 08/23/24 19:35 Sulfa (Sulfonamide AdvReac Intermediate Rash Verified 08/23/24 19:36 Antibiotics) Assessment & Plan Assessment & Plan (1) Schizoaffective disorder: Status: Acute Code(s): F25.9 - Schizoaffective disorder, unspecified Plan Continue plan of care not overtly psychotic or agitated flat withdrawn discharge planning continues. No less restrictive setting consider Namenda for apathy 10/22: continue current management and treatment plan. 10/23: continue current management and treatment plan. 10/24: no change in presentation or management. 10/25: no change in presentation or management. Reason for continued inpatient stay Substantial Risk for: inability to function Time Spent With Patient Time: Total time managing care of this patient today ____ minutes.
[2024-10-25 20:00] VITALS: BP 109/52; PULSE 80; RESP 17; TEMP 37.2; O2SAT 96
--- NOTE | 2024-10-26 08:08 | P.PNPSI_ITS ---
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 no questions or complaints. Mental Status Exam Mental Status Exam Narrative: Appearance: adequately dressed and groomed Behavior: guarded, cautious Psychomotor: some retardation Speech: mostly clear, less latency, minimally spontaneous TP: [place] TC: no questions or complaints Mood: good Affect: Flat SI: none expressed HI: none expressed VH/AH: none evidenced Delusions: no overt delusional content noted or reported Insight/judgment: impaired . Diagnostics Vital Signs (24Hr): Vital Signs - 24 hr 10/25/24 20:00 Temperature 98.9 F Pulse Rate 80 Respiratory Rate 17 Blood Pressure 109/52 L Pulse Oximetry 96 Oxygen Delivery Method Room Air BMI result Body Mass Index 21.1 Labs 08/27/24 10:00 08/29/24 17:32 Imaging Radiology Impressions: ITS Impressions Head CT 08/25/24 11:33 IMPRESSION: No acute intracranial abnormality. Electronically signed by: Cj Colunga MD 08/25/2024 12:12 PM [facility] [place] Medications Medications Current Medications Acetaminophen (Acetaminophen 325 Mg Tablet) 650 mg PO Q6H PRN PRN Reason: Headache/Pain, Scale 1-10 Last Admin: 10/11/24 20:15 Dose: 650 mg Al Hydroxide/Mg Hydroxide (Magnesium Hydrox/Alum Hydrox 30 Ml Oral.Susp) 30 ml PO Q6H PRN PRN Reason: Heartburn/Nausea Aripiprazole (Aripiprazole 30 Mg Tablet) 30 mg PO DAILY [facility] Last Admin: 10/25/24 08:06 Dose: 30 mg Benzocaine (Throat Lozenge, Medicated Lozenge) 1 lozenge MUCOUS MEM Q1H PRN PRN Reason: Sore Throat Last Admin: 09/01/24 06:09 Dose: 1 lozenge Docusate Sodium (Docusate Sodium 100 Mg Capsule) 100 mg PO BID [facility] Last Admin: 10/25/24 21:05 Dose: 100 mg Guaifenesin/Dextromethorphan (Guaifenesin Dm 200/20/10 Ml 10 Ml Syrup) 10 ml PO Q4H PRN PRN Reason: Cough Last Admin: 08/30/24 05:47 Dose: 10 ml Lactic Acid (Ammonium Lactate 12 % Lotion 226 Gm Bottle) 1 appl TOPICAL BID [facility]; Protocol Last Admin: 10/25/24 21:05 Dose: 1 appl Levothyroxine Sodium (Levothyroxine Sodium 75 Mcg Tablet) 75 mcg PO DAILY@0630 [facility] Last Admin: 10/26/24 05:32 Dose: 75 mcg Lidocaine/Diphenhydr/Alum/Mg/Simeth (Mag&Al/Sim/Diphenhyd/Lidocaine 10 Ml Oral.Susp) 10 ml PO Q6H PRN; Protocol PRN Reason: Painful Gums Last Admin: 08/26/24 13:38 Dose: 10 ml Magnesium Hydroxide (Milk Of Magnesia 30 Ml Oral.Susp) 30 ml PO DAILY PRN PRN Reason: Constipation Memantine (Memantine Hcl 5 Mg Tablet) 5 mg PO DAILY [facility] Last Admin: 10/25/24 08:06 Dose: 5 mg Olanzapine (Olanzapine Odt 10 Mg Tab.Rapdis) 5 mg TRANSLINGU Q6H PRN PRN Reason: Agitation Pravastatin Sodium (Pravastatin Sodium 40 Mg Tablet) 40 mg PO BEDTIME [facility] Last Admin: 10/25/24 21:05 Dose: 40 mg Vitamin D (Cholecalciferol (Vitamin D3) 25 Mcg Tablet) 50 mcg PO DAILY [facility] Last Admin: 10/25/24 08:06 Dose: 50 mcg Allergies Allergies Allergy/AdvReac Type Severity Reaction Status Date / Time meperidine [From Demerol] AdvReac Intermediate Rash Verified 08/23/24 19:34 morphine AdvReac Intermediate Rash Verified 08/23/24 19:35 Sulfa (Sulfonamide AdvReac Intermediate Rash Verified 08/23/24 19:36 Antibiotics) Assessment & Plan Assessment & Plan (1) Schizoaffective disorder: Status: Acute Code(s): F25.9 - Schizoaffective disorder, unspecified Plan Continue plan of care not overtly psychotic or agitated flat withdrawn discharge planning continues. No less restrictive setting consider Namenda for apathy 10/22: continue current management and treatment plan. 10/23: continue current management and treatment plan. 10/24: no change in presentation or management. 10/25: no change in presentation or management. 10/26: no change in presentation or management. Reason for continued inpatient stay Substantial Risk for: inability to function Time Spent With Patient Time: Total time managing care of this patient today ____ minutes.
[2024-10-26 09:16] VITALS: BP 147/69; PULSE 90; RESP 15; TEMP 36.7; O2SAT 96
[2024-10-26] MEDS: Ammonium Lactate 12 % Lotion 226 GM BOTTLE 1 APPL TOPICAL (09:17)
[2024-10-26] MEDS: ARIPiprazole 30 MG TABLET PO (09:19)
[2024-10-26 20:00] VITALS: BP 98/51; PULSE 77; RESP 15; TEMP 37.3; O2SAT 96
[2024-10-27 08:00] VITALS: BP 112/76; PULSE 90; RESP 16; TEMP 36.7; O2SAT 99
[2024-10-27] MEDS: ARIPiprazole 30 MG TABLET PO (08:45)
[2024-10-27] MEDS: Ammonium Lactate 12 % Lotion 226 GM BOTTLE 1 APPL TOPICAL (10:43)
[2024-10-27 13:52] VITALS: BMI 22.2
--- NOTE | 2024-10-27 15:30 | P.PNPSI_ITS ---
Subjective Subjective Date of Service: 10/27/24 Reason For Visit: bipolar 1 disorder current or most recent epi Interim History: no change in presentation. per staff, trending well. out for meals only. brighter. attended group yesterday. taking meds. sleeping well. Mental Status Exam Mental Status Exam Narrative: Appearance: adequately dressed and groomed Behavior: guarded, cautious Psychomotor: some retardation Speech: mostly clear, less latency, minimally spontaneous TP: [place] TC: no questions or complaints Mood: good Affect: Flat SI: none expressed HI: none expressed VH/AH: none evidenced Delusions: no overt delusional content noted or reported Insight/judgment: impaired . Diagnostics Vital Signs (24Hr): Vital Signs - 24 hr 10/26/24 20:00 10/27/24 08:00 Temperature 99.1 F 98.0 F Pulse Rate 77 90 Respiratory Rate 15 16 Blood Pressure 98/51 L 112/76 Pulse Oximetry 96 99 Oxygen Delivery Method Room Air Room Air BMI result Body Mass Index 22.2 Labs 08/27/24 10:00 08/29/24 17:32 Imaging Radiology Impressions: ITS Impressions Head CT 08/25/24 11:33 IMPRESSION: No acute intracranial abnormality. Electronically signed by: Cj Colunga MD 08/25/2024 12:12 PM [facility] [place] Medications Medications Current Medications Acetaminophen (Acetaminophen 325 Mg Tablet) 650 mg PO Q6H PRN PRN Reason: Headache/Pain, Scale 1-10 Last Admin: 10/11/24 20:15 Dose: 650 mg Al Hydroxide/Mg Hydroxide (Magnesium Hydrox/Alum Hydrox 30 Ml Oral.Susp) 30 ml PO Q6H PRN PRN Reason: Heartburn/Nausea Aripiprazole (Aripiprazole 30 Mg Tablet) 30 mg PO DAILY [facility] Last Admin: 10/27/24 08:45 Dose: 30 mg Benzocaine (Throat Lozenge, Medicated Lozenge) 1 lozenge MUCOUS MEM Q1H PRN PRN Reason: Sore Throat Last Admin: 09/01/24 06:09 Dose: 1 lozenge Docusate Sodium (Docusate Sodium 100 Mg Capsule) 100 mg PO BID [facility] Last Admin: 10/27/24 08:46 Dose: 100 mg Guaifenesin/Dextromethorphan (Guaifenesin Dm 200/20/10 Ml 10 Ml Syrup) 10 ml PO Q4H PRN PRN Reason: Cough Last Admin: 08/30/24 05:47 Dose: 10 ml Lactic Acid (Ammonium Lactate 12 % Lotion 226 Gm Bottle) 1 appl TOPICAL BID [facility]; Protocol Last Admin: 10/27/24 10:43 Dose: 1 appl Levothyroxine Sodium (Levothyroxine Sodium 75 Mcg Tablet) 75 mcg PO DAILY@0630 [facility] Last Admin: 10/27/24 06:01 Dose: 75 mcg Lidocaine/Diphenhydr/Alum/Mg/Simeth (Mag&Al/Sim/Diphenhyd/Lidocaine 10 Ml Oral.Susp) 10 ml PO Q6H PRN; Protocol PRN Reason: Painful Gums Last Admin: 08/26/24 13:38 Dose: 10 ml Magnesium Hydroxide (Milk Of Magnesia 30 Ml Oral.Susp) 30 ml PO DAILY PRN PRN Reason: Constipation Memantine (Memantine Hcl 5 Mg Tablet) 5 mg PO DAILY [facility] Last Admin: 10/27/24 08:46 Dose: 5 mg Olanzapine (Olanzapine Odt 10 Mg Tab.Rapdis) 5 mg TRANSLINGU Q6H PRN PRN Reason: Agitation Pravastatin Sodium (Pravastatin Sodium 40 Mg Tablet) 40 mg PO BEDTIME [facility] Last Admin: 10/26/24 20:35 Dose: 40 mg Vitamin D (Cholecalciferol (Vitamin D3) 25 Mcg Tablet) 50 mcg PO DAILY [facility] Last Admin: 10/27/24 08:46 Dose: 50 mcg Allergies Allergies Allergy/AdvReac Type Severity Reaction Status Date / Time meperidine [From Demerol] AdvReac Intermediate Rash Verified 08/23/24 19:34 morphine AdvReac Intermediate Rash Verified 08/23/24 19:35 Sulfa (Sulfonamide AdvReac Intermediate Rash Verified 08/23/24 19:36 Antibiotics) Assessment & Plan Assessment & Plan (1) Schizoaffective disorder: Status: Acute Code(s): F25.9 - Schizoaffective disorder, unspecified Plan Continue plan of care not overtly psychotic or agitated flat withdrawn discharge planning continues. No less restrictive setting consider Namenda for apathy 10/22: continue current management and treatment plan. 10/23: continue current management and treatment plan. 10/24: no change in presentation or management. 10/25: no change in presentation or management. 10/26: no change in presentation or management. 10/27: no change in presentation or management. per staff, brighter and attended group yesterday. +meds, sleeping well. Reason for continued inpatient stay Substantial Risk for: inability to function Time Spent With Patient Time: Total time managing care of this patient today ____ minutes.
[2024-10-27 20:00] VITALS: BP 123/58; PULSE 71; RESP 16; TEMP 36.7; O2SAT 99
[2024-10-28 08:00] VITALS: BP 121/58; PULSE 65; RESP 14; TEMP 36.5; O2SAT 98
[2024-10-28] MEDS: ARIPiprazole 30 MG TABLET PO (08:51)
[2024-10-28] MEDS: Ammonium Lactate 12 % Lotion 226 GM BOTTLE 1 APPL TOPICAL (08:57)
--- NOTE | 2024-10-28 09:02 | HO.PSYCHPN ---
Subjective Subjective Reason For Visit: bipolar 1 disorder current or most recent epi Diagnostics Vital Signs (24Hr): Vital Signs - 24 hr 10/27/24 20:00 Temperature 98.1 F Pulse Rate 71 Respiratory Rate 16 Blood Pressure 123/58 L Pulse Oximetry 99 Oxygen Delivery Method Room Air BMI result Body Mass Index 22.2 Labs 08/27/24 10:00 08/29/24 17:32 Imaging Radiology Impressions: ITS Impressions Head CT 08/25/24 11:33 IMPRESSION: No acute intracranial abnormality. Electronically signed by: Cj Colunga MD 08/25/2024 12:12 PM [facility] [place] Medications Current Medications Acetaminophen (Acetaminophen 325 Mg Tablet) 650 mg PO Q6H PRN PRN Reason: Headache/Pain, Scale 1-10 Last Admin: 10/11/24 20:15 Dose: 650 mg Al Hydroxide/Mg Hydroxide (Magnesium Hydrox/Alum Hydrox 30 Ml Oral.Susp) 30 ml PO Q6H PRN PRN Reason: Heartburn/Nausea Aripiprazole (Aripiprazole 30 Mg Tablet) 30 mg PO DAILY [facility] Last Admin: 10/28/24 08:51 Dose: 30 mg Benzocaine (Throat Lozenge, Medicated Lozenge) 1 lozenge MUCOUS MEM Q1H PRN PRN Reason: Sore Throat Last Admin: 09/01/24 06:09 Dose: 1 lozenge Docusate Sodium (Docusate Sodium 100 Mg Capsule) 100 mg PO BID [facility] Last Admin: 10/28/24 08:52 Dose: 100 mg Guaifenesin/Dextromethorphan (Guaifenesin Dm 200/20/10 Ml 10 Ml Syrup) 10 ml PO Q4H PRN PRN Reason: Cough Last Admin: 08/30/24 05:47 Dose: 10 ml Lactic Acid (Ammonium Lactate 12 % Lotion 226 Gm Bottle) 1 appl TOPICAL BID [facility]; Protocol Last Admin: 10/28/24 08:57 Dose: 1 appl Levothyroxine Sodium (Levothyroxine Sodium 75 Mcg Tablet) 75 mcg PO DAILY@0630 [facility] Last Admin: 10/28/24 05:59 Dose: 75 mcg Lidocaine/Diphenhydr/Alum/Mg/Simeth (Mag&Al/Sim/Diphenhyd/Lidocaine 10 Ml Oral.Susp) 10 ml PO Q6H PRN; Protocol PRN Reason: Painful Gums Last Admin: 08/26/24 13:38 Dose: 10 ml Magnesium Hydroxide (Milk Of Magnesia 30 Ml Oral.Susp) 30 ml PO DAILY PRN PRN Reason: Constipation Memantine (Memantine Hcl 5 Mg Tablet) 5 mg PO DAILY [facility] Last Admin: 10/28/24 08:52 Dose: 5 mg Olanzapine (Olanzapine Odt 10 Mg Tab.Rapdis) 5 mg TRANSLINGU Q6H PRN PRN Reason: Agitation Pravastatin Sodium (Pravastatin Sodium 40 Mg Tablet) 40 mg PO BEDTIME [facility] Last Admin: 10/27/24 20:54 Dose: 40 mg Vitamin D (Cholecalciferol (Vitamin D3) 25 Mcg Tablet) 50 mcg PO DAILY [facility] Last Admin: 10/28/24 08:52 Dose: 50 mcg Allergies Allergies Allergy/AdvReac Type Severity Reaction Status Date / Time meperidine [From Demerol] AdvReac Intermediate Rash Verified 08/23/24 19:34 morphine AdvReac Intermediate Rash Verified 08/23/24 19:35 Sulfa (Sulfonamide AdvReac Intermediate Rash Verified 08/23/24 19:36 Antibiotics) Assessment & Plan Assessment & Plan (1) Schizoaffective disorder: Status: Acute Code(s): F25.9 - Schizoaffective disorder, unspecified Plan Continue plan of care not overtly psychotic or agitated flat withdrawn discharge planning continues. No less restrictive setting consider Namenda for apathy 10/22: continue current management and treatment plan. 10/23: continue current management and treatment plan. 10/24: no change in presentation or management. 10/25: no change in presentation or management. 10/26: no change in presentation or management. 10/27: no change in presentation or management. per staff, brighter and attended group yesterday. +meds, sleeping well. Time Spent With Patient Time: Total time managing care of this patient today ____ minutes.
--- NOTE | 2024-10-28 15:28 | HO.PSYCHPN ---
Subjective Subjective Date of Service: 10/28/24 Reason For Visit: bipolar 1 disorder current or most recent epi Subjective Notes: Conditional Voluntary Healthcare Proxy: Yes Interim History: Pt slept through the night. Pt constipated unable to tell when was last BM. KUB shows severe constipation, no obstruction. given miralax, senakot. continue to monitor. Pt passing gas, no abdominal pain. No vomiting. Review of Systems Review of Systems Pt denies chest pain. No abdominal pain. No diarrhea or constipation. Yes all other systems are reviewed and are negative Mental Status Exam Mental Status Exam Narrative: Appearance: adequately dressed and groomed Behavior: guarded, cautious Psychomotor: some retardation Speech: mostly clear, less latency, minimally spontaneous TP: [place] TC: no questions or complaints Mood: good Affect: Flat SI: none expressed HI: none expressed VH/AH: none evidenced Delusions: no overt delusional content noted or reported Insight/judgment: impaired . Diagnostics Vital Signs (24Hr): Vital Signs - 24 hr 10/27/24 20:00 10/28/24 08:00 Temperature 98.1 F 97.7 F Pulse Rate 71 65 Respiratory Rate 16 14 Blood Pressure 123/58 L 121/58 L Pulse Oximetry 99 98 Oxygen Delivery Method Room Air Room Air BMI result Body Mass Index 22.2 Labs 08/27/24 10:00 08/29/24 17:32 Imaging Radiology Impressions: ITS Impressions Head CT 08/25/24 11:33 IMPRESSION: No acute intracranial abnormality. Electronically signed by: Cj Colunga MD 08/25/2024 12:12 PM EST RP KUB X-Ray 10/28/24 09:50 IMPRESSION: Abundant stool without intestinal obstruction pattern. Electronically signed by: Audie Uribe MD 10/28/2024 10:02 AM EDT RP Medications Medications Current Medications Acetaminophen (Acetaminophen 325 Mg Tablet) 650 mg PO Q6H PRN PRN Reason: Headache/Pain, Scale 1-10 Last Admin: 10/11/24 20:15 Dose: 650 mg Al Hydroxide/Mg Hydroxide (Magnesium Hydrox/Alum Hydrox 30 Ml Oral.Susp) 30 ml PO Q6H PRN PRN Reason: Heartburn/Nausea Aripiprazole (Aripiprazole 30 Mg Tablet) 30 mg PO DAILY [facility] Last Admin: 10/28/24 08:51 Dose: 30 mg Benzocaine (Throat Lozenge, Medicated Lozenge) 1 lozenge MUCOUS MEM Q1H PRN PRN Reason: Sore Throat Last Admin: 09/01/24 06:09 Dose: 1 lozenge Guaifenesin/Dextromethorphan (Guaifenesin Dm 200/20/10 Ml 10 Ml Syrup) 10 ml PO Q4H PRN PRN Reason: Cough Last Admin: 08/30/24 05:47 Dose: 10 ml Lactic Acid (Ammonium Lactate 12 % Lotion 226 Gm Bottle) 1 appl TOPICAL BID [facility]; Protocol Last Admin: 10/28/24 08:57 Dose: 1 appl Levothyroxine Sodium (Levothyroxine Sodium 75 Mcg Tablet) 75 mcg PO DAILY@0630 [facility] Last Admin: 10/28/24 05:59 Dose: 75 mcg Lidocaine/Diphenhydr/Alum/Mg/Simeth (Mag&Al/Sim/Diphenhyd/Lidocaine 10 Ml Oral.Susp) 10 ml PO Q6H PRN; Protocol PRN Reason: Painful Gums Last Admin: 08/26/24 13:38 Dose: 10 ml Magnesium Hydroxide (Milk Of Magnesia 30 Ml Oral.Susp) 30 ml PO DAILY PRN PRN Reason: Constipation Memantine (Memantine Hcl 5 Mg Tablet) 5 mg PO DAILY [facility] Last Admin: 10/28/24 08:52 Dose: 5 mg Olanzapine (Olanzapine Odt 10 Mg Tab.Rapdis) 5 mg TRANSLINGU Q6H PRN PRN Reason: Agitation Polyethylene Glycol (Polyethylene Glycol 3350 17 Gm Powd.Pack) 17 gm PO DAILY [facility] Last Admin: 10/28/24 11:28 Dose: 17 gm Pravastatin Sodium (Pravastatin Sodium 40 Mg Tablet) 40 mg PO BEDTIME [facility] Last Admin: 10/27/24 20:54 Dose: 40 mg Senna/Docusate Sodium (Sennosides/Docusate Sodium Tablet) 1 tab PO BID [facility] Last Admin: 10/28/24 11:28 Dose: 1 tab Vitamin D (Cholecalciferol (Vitamin D3) 25 Mcg Tablet) 50 mcg PO DAILY [facility] Last Admin: 10/28/24 08:52 Dose: 50 mcg Allergies Allergies Allergy/AdvReac Type Severity Reaction Status Date / Time meperidine [From Demerol] AdvReac Intermediate Rash Verified 08/23/24 19:34 morphine AdvReac Intermediate Rash Verified 08/23/24 19:35 Sulfa (Sulfonamide AdvReac Intermediate Rash Verified 08/23/24 19:36 Antibiotics) Assessment & Plan Assessment & Plan (1) Schizoaffective disorder: Status: Acute Code(s): F25.9 - Schizoaffective disorder, unspecified Plan Continue plan of care, not overtly psychotic or agitated. flat withdrawn. discharge planning continues. No less restrictive setting consider Namenda for apathy 10/22: continue current management and treatment plan. 10/23: continue current management and treatment plan. 10/24: no change in presentation or management. 10/25: no change in presentation or management. 10/26: no change in presentation or management. 10/27: no change in presentation or management. per staff, brighter and attended group yesterday. +meds, sleeping well. 10/28: constipation, valeria, miralax. Reason for continued inpatient stay Substantial Risk for: inability to function Time Spent With Patient Time: Total time managing care of this patient today ____ minutes.
--- NOTE | 2024-10-28 17:52 | PC.NURSE ---
Continue to monitor effectiveness of cathartics given, she has been passing gas. Encouraged to ambulate to help get things moving.
[2024-10-28 19:55] VITALS: BP 113/56; PULSE 77; RESP 16; TEMP 36.9; O2SAT 96
[2024-10-29 08:00] VITALS: BP 108/54; PULSE 66; TEMP 36.7; O2SAT 98
[2024-10-29] MEDS: ARIPiprazole 30 MG TABLET PO (08:28)
--- NOTE | 2024-10-29 14:33 | P.PNPSI_ITS ---
Subjective Subjective Date of Service: 10/29/24 Reason For Visit: bipolar 1 disorder current or most recent epi Interim History: no change in presentation. per staff, KUB indicates tool burden. Mental Status Exam Mental Status Exam Narrative: Appearance: adequately dressed and groomed Behavior: guarded, cautious Psychomotor: some retardation Speech: mostly clear, less latency, minimally spontaneous TP: [place] TC: no questions or complaints Mood: good Affect: Flat SI: none expressed HI: none expressed VH/AH: none evidenced Delusions: no overt delusional content noted or reported Insight/judgment: impaired . Diagnostics Vital Signs (24Hr): Vital Signs - 24 hr 10/28/24 19:55 10/29/24 08:00 Temperature 98.4 F 98.1 F Pulse Rate 77 66 Respiratory Rate 16 Blood Pressure 113/56 L 108/54 L Pulse Oximetry 96 98 Oxygen Delivery Method Room Air Room Air BMI result Body Mass Index 22.2 Labs 08/27/24 10:00 08/29/24 17:32 Imaging Radiology Impressions: ITS Impressions Head CT 08/25/24 11:33 IMPRESSION: No acute intracranial abnormality. Electronically signed by: Cj Colunga MD 08/25/2024 12:12 PM EST RP KUB X-Ray 10/28/24 09:50 IMPRESSION: Abundant stool without intestinal obstruction pattern. Electronically signed by: Audie Uribe MD 10/28/2024 10:02 AM EDT RP Medications Medications Current Medications Acetaminophen (Acetaminophen 325 Mg Tablet) 650 mg PO Q6H PRN PRN Reason: Headache/Pain, Scale 1-10 Last Admin: 10/11/24 20:15 Dose: 650 mg Al Hydroxide/Mg Hydroxide (Magnesium Hydrox/Alum Hydrox 30 Ml Oral.Susp) 30 ml PO Q6H PRN PRN Reason: Heartburn/Nausea Aripiprazole (Aripiprazole 30 Mg Tablet) 30 mg PO DAILY [facility] Last Admin: 10/29/24 08:28 Dose: 30 mg Benzocaine (Throat Lozenge, Medicated Lozenge) 1 lozenge MUCOUS MEM Q1H PRN PRN Reason: Sore Throat Last Admin: 09/01/24 06:09 Dose: 1 lozenge Guaifenesin/Dextromethorphan (Guaifenesin Dm 200/20/10 Ml 10 Ml Syrup) 10 ml PO Q4H PRN PRN Reason: Cough Last Admin: 08/30/24 05:47 Dose: 10 ml Lactic Acid (Ammonium Lactate 12 % Lotion 226 Gm Bottle) [address] [facility]; Protocol Last Admin: 10/29/24 08:45 Dose: Not Given Levothyroxine Sodium (Levothyroxine Sodium 75 Mcg Tablet) 75 mcg PO DAILY@0630 [facility] Last Admin: 10/29/24 05:33 Dose: 75 mcg Lidocaine/Diphenhydr/Alum/Mg/Simeth (Mag&Al/Sim/Diphenhyd/Lidocaine 10 Ml Oral.Susp) 10 ml PO Q6H PRN; Protocol PRN Reason: Painful Gums Last Admin: 08/26/24 13:38 Dose: 10 ml Magnesium Hydroxide (Milk Of Magnesia 30 Ml Oral.Susp) 30 ml PO DAILY PRN PRN Reason: Constipation Memantine (Memantine Hcl 5 Mg Tablet) [address] [facility] Last Admin: 10/29/24 08:28 Dose: 5 mg Olanzapine (Olanzapine Odt 10 Mg Tab.Rapdis) 5 mg TRANSLINGU Q6H PRN PRN Reason: Agitation Polyethylene Glycol (Polyethylene Glycol 3350 17 Gm Powd.Pack) [address] [facility] Last Admin: 10/29/24 08:27 Dose: 17 gm Pravastatin Sodium (Pravastatin Sodium 40 Mg Tablet) [address] [facility] Last Admin: 10/28/24 20:31 Dose: 40 mg Senna/Docusate Sodium (Sennosides/Docusate Sodium Tablet) [address] [facility] Last Admin: 10/29/24 08:28 Dose: 1 tab Vitamin D (Cholecalciferol (Vitamin D3) 25 Mcg Tablet) [address] [facility] Last Admin: 10/29/24 08:27 Dose: 50 mcg Allergies Allergies Allergy/AdvReac Type Severity Reaction Status Date / Time meperidine [From Demerol] AdvReac Intermediate Rash Verified 08/23/24 19:34 morphine AdvReac Intermediate Rash Verified 08/23/24 19:35 Sulfa (Sulfonamide AdvReac Intermediate Rash Verified 08/23/24 19:36 Antibiotics) Assessment & Plan Assessment & Plan (1) Schizoaffective disorder: Status: Acute Code(s): F25.9 - Schizoaffective disorder, unspecified Reason for continued inpatient stay Substantial Risk for: inability to function Time Spent With Patient Time: Total time managing care of this patient today ____ minutes.
[2024-10-29 19:46] VITALS: BP 132/66; PULSE 73; RESP 16; TEMP 36.9; O2SAT 96
[2024-10-30 07:58] VITALS: BP 118/58; PULSE 55; RESP 14; TEMP 36.9; O2SAT 97
[2024-10-30] MEDS: ARIPiprazole 30 MG TABLET PO (08:40)
--- NOTE | 2024-10-30 13:43 | HO.PSYCHPN ---
Subjective Subjective Date of Service: 10/30/24 Reason For Visit: bipolar 1 disorder current or most recent epi Interim History: good. no requests. per staff, KUB showed stool burden, pt reports she has been passing stool now. Mental Status Exam Mental Status Exam Narrative: Appearance: adequately dressed and groomed Behavior: guarded, cautious Psychomotor: some retardation Speech: mostly clear, less latency, minimally spontaneous TP: [place] TC: no questions or complaints Mood: good Affect: Flat SI: none expressed HI: none expressed VH/AH: none evidenced Delusions: no overt delusional content noted or reported Insight/judgment: impaired . Diagnostics Vital Signs (24Hr): Vital Signs - 24 hr 10/29/24 19:46 10/30/24 07:58 Temperature 98.4 F 98.4 F Pulse Rate 73 55 Respiratory Rate 16 14 Blood Pressure 132/66 118/58 L Pulse Oximetry 96 97 Oxygen Delivery Method Room Air Room Air BMI result Body Mass Index 22.2 Labs 08/27/24 10:00 08/29/24 17:32 Imaging Radiology Impressions: ITS Impressions Head CT 08/25/24 11:33 IMPRESSION: No acute intracranial abnormality. Electronically signed by: Cj Colunga MD 08/25/2024 12:12 PM EST RP KUB X-Ray 10/28/24 09:50 IMPRESSION: Abundant stool without intestinal obstruction pattern. Electronically signed by: Audie Uribe MD 10/28/2024 10:02 AM EDT RP Medications Medications Current Medications Acetaminophen (Acetaminophen 325 Mg Tablet) 650 mg PO Q6H PRN PRN Reason: Headache/Pain, Scale 1-10 Last Admin: 10/11/24 20:15 Dose: 650 mg Al Hydroxide/Mg Hydroxide (Magnesium Hydrox/Alum Hydrox 30 Ml Oral.Susp) 30 ml PO Q6H PRN PRN Reason: Heartburn/Nausea Aripiprazole (Aripiprazole 30 Mg Tablet) 30 mg PO DAILY [facility] Last Admin: 10/30/24 08:40 Dose: 30 mg Benzocaine (Throat Lozenge, Medicated Lozenge) 1 lozenge MUCOUS MEM Q1H PRN PRN Reason: Sore Throat Last Admin: 09/01/24 06:09 Dose: 1 lozenge Guaifenesin/Dextromethorphan (Guaifenesin Dm 200/20/10 Ml 10 Ml Syrup) 10 ml PO Q4H PRN PRN Reason: Cough Last Admin: 08/30/24 05:47 Dose: 10 ml Lactic Acid (Ammonium Lactate 12 % Lotion 226 Gm Bottle) 1 appl TOPICAL BID [facility]; Protocol Last Admin: 10/30/24 08:42 Dose: Not Given Levothyroxine Sodium (Levothyroxine Sodium 75 Mcg Tablet) 75 mcg PO DAILY@0630 [facility] Last Admin: 10/30/24 05:32 Dose: 75 mcg Lidocaine/Diphenhydr/Alum/Mg/Simeth (Mag&Al/Sim/Diphenhyd/Lidocaine 10 Ml Oral.Susp) 10 ml PO Q6H PRN; Protocol PRN Reason: Painful Gums Last Admin: 08/26/24 13:38 Dose: 10 ml Magnesium Hydroxide (Milk Of Magnesia 30 Ml Oral.Susp) 30 ml PO DAILY PRN PRN Reason: Constipation Memantine (Memantine Hcl 5 Mg Tablet) 5 mg PO DAILY [facility] Last Admin: 10/30/24 08:40 Dose: 5 mg Olanzapine (Olanzapine Odt 10 Mg Tab.Rapdis) 5 mg TRANSLINGU Q6H PRN PRN Reason: Agitation Polyethylene Glycol (Polyethylene Glycol 3350 17 Gm Powd.Pack) 17 gm PO DAILY [facility] Last Admin: 10/30/24 08:40 Dose: 17 gm Pravastatin Sodium (Pravastatin Sodium 40 Mg Tablet) 40 mg PO BEDTIME [facility] Last Admin: 10/29/24 20:18 Dose: 40 mg Senna/Docusate Sodium (Sennosides/Docusate Sodium Tablet) 1 tab PO BID [facility] Last Admin: 10/30/24 08:40 Dose: 1 tab Vitamin D (Cholecalciferol (Vitamin D3) 25 Mcg Tablet) 50 mcg PO DAILY [facility] Last Admin: 10/30/24 08:40 Dose: 50 mcg Allergies Allergies Allergy/AdvReac Type Severity Reaction Status Date / Time meperidine [From Demerol] AdvReac Intermediate Rash Verified 08/23/24 19:34 morphine AdvReac Intermediate Rash Verified 08/23/24 19:35 Sulfa (Sulfonamide AdvReac Intermediate Rash Verified 08/23/24 19:36 Antibiotics) Assessment & Plan Assessment & Plan (1) Schizoaffective disorder: Status: Acute Code(s): F25.9 - Schizoaffective disorder, unspecified Plan Continue plan of care, not overtly psychotic or agitated. flat withdrawn. discharge planning continues. No less restrictive setting consider Namenda for apathy 10/22: continue current management and treatment plan. 10/23: continue current management and treatment plan. 10/24: no change in presentation or management. 10/25: no change in presentation or management. 10/26: no change in presentation or management. 10/27: no change in presentation or management. per staff, brighter and attended group yesterday. +meds, sleeping well. 10/30: no change in presentation. continue current mgmt. Reason for continued inpatient stay Substantial Risk for: inability to function Time Spent With Patient Time: Total time managing care of this patient today ____ minutes.
[2024-10-30 20:02] VITALS: BP 109/54; PULSE 77; TEMP 37; O2SAT 95
[2024-10-31 09:06] VITALS: BP 97/66; PULSE 77; RESP 16; TEMP 36.8; O2SAT 100
[2024-10-31] MEDS: Ammonium Lactate 12 % Lotion 226 GM BOTTLE 1 APPL TOPICAL (09:14)
[2024-10-31] MEDS: ARIPiprazole 30 MG TABLET PO (09:14)
--- NOTE | 2024-10-31 15:55 | HO.PSYCHPN ---
Subjective Subjective Date of Service: 10/31/24 Reason For Visit: bipolar 1 disorder current or most recent epi Subjective Notes: Conditional Voluntary Healthcare Proxy: Yes Interim History: Patient seen chart reviewed case reviewed in treatment planning, Pt slept through the night. Medication Compliance: Yes Mental Status Exam Mental Status Exam Narrative: Appearance: adequately dressed and groomed Behavior: guarded, cautious Psychomotor: some retardation Speech: mostly clear, less latency, minimally spontaneous TP: [place] TC: no questions or complaints Mood: good Affect: Flat SI: none expressed HI: none expressed VH/AH: none evidenced Delusions: no overt delusional content noted or reported Insight/judgment: impaired . Diagnostics Vital Signs (24Hr): Vital Signs - 24 hr 10/30/24 20:02 10/31/24 09:06 Temperature 98.6 F 98.2 F Pulse Rate 77 77 Respiratory Rate 16 Blood Pressure 109/54 L 97/66 Pulse Oximetry 95 100 Oxygen Delivery Method Room Air Room Air BMI result Body Mass Index 22.2 Labs 08/27/24 10:00 08/29/24 17:32 Imaging Radiology Impressions: ITS Impressions Head CT 08/25/24 11:33 IMPRESSION: No acute intracranial abnormality. Electronically signed by: Cj Colunga MD 08/25/2024 12:12 PM EST RP KUB X-Ray 10/28/24 09:50 IMPRESSION: Abundant stool without intestinal obstruction pattern. Electronically signed by: Audie Uribe MD 10/28/2024 10:02 AM EDT RP Medications Medications Current Medications Acetaminophen (Acetaminophen 325 Mg Tablet) 650 mg PO Q6H PRN PRN Reason: Headache/Pain, Scale 1-10 Last Admin: 10/11/24 20:15 Dose: 650 mg Al Hydroxide/Mg Hydroxide (Magnesium Hydrox/Alum Hydrox 30 Ml Oral.Susp) 30 ml PO Q6H PRN PRN Reason: Heartburn/Nausea Aripiprazole (Aripiprazole 30 Mg Tablet) 30 mg PO DAILY [facility] Last Admin: 10/31/24 09:14 Dose: 30 mg Benzocaine (Throat Lozenge, Medicated Lozenge) 1 lozenge MUCOUS MEM Q1H PRN PRN Reason: Sore Throat Last Admin: 09/01/24 06:09 Dose: 1 lozenge Guaifenesin/Dextromethorphan (Guaifenesin Dm 200/20/10 Ml 10 Ml Syrup) 10 ml PO Q4H PRN PRN Reason: Cough Last Admin: 08/30/24 05:47 Dose: 10 ml Lactic Acid (Ammonium Lactate 12 % Lotion 226 Gm Bottle) 1 appl TOPICAL BID [facility]; Protocol Last Admin: 10/31/24 09:14 Dose: 1 appl Levothyroxine Sodium (Levothyroxine Sodium 75 Mcg Tablet) 75 mcg PO DAILY@0630 [facility] Last Admin: 10/31/24 05:58 Dose: 75 mcg Lidocaine/Diphenhydr/Alum/Mg/Simeth (Mag&Al/Sim/Diphenhyd/Lidocaine 10 Ml Oral.Susp) 10 ml PO Q6H PRN; Protocol PRN Reason: Painful Gums Last Admin: 08/26/24 13:38 Dose: 10 ml Magnesium Hydroxide (Milk Of Magnesia 30 Ml Oral.Susp) 30 ml PO DAILY PRN PRN Reason: Constipation Memantine (Memantine Hcl 5 Mg Tablet) 5 mg PO DAILY [facility] Last Admin: 10/31/24 09:14 Dose: 5 mg Olanzapine (Olanzapine Odt 10 Mg Tab.Rapdis) 5 mg TRANSLINGU Q6H PRN PRN Reason: Agitation Polyethylene Glycol (Polyethylene Glycol 3350 17 Gm Powd.Pack) 17 gm PO DAILY [facility] Last Admin: 10/31/24 09:14 Dose: 17 gm Pravastatin Sodium (Pravastatin Sodium 40 Mg Tablet) 40 mg PO BEDTIME [facility] Last Admin: 10/30/24 20:40 Dose: 40 mg Senna/Docusate Sodium (Sennosides/Docusate Sodium Tablet) 1 tab PO BID [facility] Last Admin: 10/31/24 09:14 Dose: 1 tab Vitamin D (Cholecalciferol (Vitamin D3) 25 Mcg Tablet) 50 mcg PO DAILY [facility] Last Admin: 10/31/24 09:14 Dose: 50 mcg Allergies Allergies Allergy/AdvReac Type Severity Reaction Status Date / Time meperidine [From Demerol] AdvReac Intermediate Rash Verified 08/23/24 19:34 morphine AdvReac Intermediate Rash Verified 08/23/24 19:35 Sulfa (Sulfonamide AdvReac Intermediate Rash Verified 08/23/24 19:36 Antibiotics) Assessment & Plan Assessment & Plan (1) Schizoaffective disorder: Status: Acute Code(s): F25.9 - Schizoaffective disorder, unspecified Plan Continue plan of care, not overtly psychotic or agitated. flat withdrawn. discharge planning continues. No less restrictive setting consider Namenda for apathy 10/22: continue current management and treatment plan. 10/23: continue current management and treatment plan. 10/24: no change in presentation or management. 10/25: no change in presentation or management. 10/26: no change in presentation or management. 10/27: no change in presentation or management. per staff, brighter and attended group yesterday. +meds, sleeping well. 10/28: constipation, valeria, miralax. 10/31/2024 Patient unremarkable no marked changes noted continue plan of care Reason for continued inpatient stay Substantial Risk for: inability to function and rapid decompensation Time Spent With Patient Time: Total time managing care of this patient today ____ minutes.
[2024-10-31 20:00] VITALS: BP 111/62; PULSE 82; RESP 16; TEMP 36.6; O2SAT 98
[2024-11-01 07:55] VITALS: BP 128/58; PULSE 68; RESP 16; TEMP 36.5; O2SAT 97
[2024-11-01] MEDS: ARIPiprazole 30 MG TABLET PO (08:17)
--- NOTE | 2024-11-01 15:25 | P.PNPSI_ITS ---
Subjective Subjective Date of Service: 11/01/24 Reason For Visit: bipolar 1 disorder current or most recent epi Interim History: no change in presentation. per staff, flat, withdrawn. minimal engagement. slept well. Mental Status Exam Mental Status Exam Narrative: Appearance: adequately dressed and groomed Behavior: guarded, cautious Psychomotor: some retardation Speech: mostly clear, less latency, minimally spontaneous TP: [place] TC: no questions or complaints Mood: good Affect: Flat SI: none expressed HI: none expressed VH/AH: none evidenced Delusions: no overt delusional content noted or reported Insight/judgment: impaired . Diagnostics Vital Signs (24Hr): Vital Signs - 24 hr 10/31/24 20:00 11/01/24 07:55 Temperature 97.9 F 97.7 F Pulse Rate 82 68 Respiratory Rate 16 16 Blood Pressure 111/62 128/58 L Pulse Oximetry 98 97 Oxygen Delivery Method Room Air Room Air BMI result Body Mass Index 22.2 Labs 08/27/24 10:00 08/29/24 17:32 Imaging Radiology Impressions: ITS Impressions Head CT 08/25/24 11:33 IMPRESSION: No acute intracranial abnormality. Electronically signed by: Cj Colunga MD 08/25/2024 12:12 PM EST RP KUB X-Ray 10/28/24 09:50 IMPRESSION: Abundant stool without intestinal obstruction pattern. Electronically signed by: Audie Uribe MD 10/28/2024 10:02 AM EDT RP Medications Medications Current Medications Acetaminophen (Acetaminophen 325 Mg Tablet) 650 mg PO Q6H PRN PRN Reason: Headache/Pain, Scale 1-10 Last Admin: 10/11/24 20:15 Dose: 650 mg Al Hydroxide/Mg Hydroxide (Magnesium Hydrox/Alum Hydrox 30 Ml Oral.Susp) 30 ml PO Q6H PRN PRN Reason: Heartburn/Nausea Aripiprazole (Aripiprazole 30 Mg Tablet) 30 mg PO DAILY [facility] Last Admin: 11/01/24 08:17 Dose: 30 mg Benzocaine (Throat Lozenge, Medicated Lozenge) 1 lozenge MUCOUS MEM Q1H PRN PRN Reason: Sore Throat Last Admin: 09/01/24 06:09 Dose: 1 lozenge Guaifenesin/Dextromethorphan (Guaifenesin Dm 200/20/10 Ml 10 Ml Syrup) 10 ml PO Q4H PRN PRN Reason: Cough Last Admin: 08/30/24 05:47 Dose: 10 ml Lactic Acid (Ammonium Lactate 12 % Lotion 226 Gm Bottle) 1 appl TOPICAL BID [facility]; Protocol Last Admin: 11/01/24 08:21 Dose: Not Given Levothyroxine Sodium (Levothyroxine Sodium 75 Mcg Tablet) 75 mcg PO DAILY@0630 [facility] Last Admin: 11/01/24 05:52 Dose: 75 mcg Lidocaine/Diphenhydr/Alum/Mg/Simeth (Mag&Al/Sim/Diphenhyd/Lidocaine 10 Ml Oral.Susp) 10 ml PO Q6H PRN; Protocol PRN Reason: Painful Gums Last Admin: 08/26/24 13:38 Dose: 10 ml Magnesium Hydroxide (Milk Of Magnesia 30 Ml Oral.Susp) 30 ml PO DAILY PRN PRN Reason: Constipation Memantine (Memantine Hcl 5 Mg Tablet) 5 mg PO DAILY [facility] Last Admin: 11/01/24 08:17 Dose: 5 mg Olanzapine (Olanzapine Odt 10 Mg Tab.Rapdis) 5 mg TRANSLINGU Q6H PRN PRN Reason: Agitation Polyethylene Glycol (Polyethylene Glycol 3350 17 Gm Powd.Pack) 17 gm PO DAILY [facility] Last Admin: 11/01/24 08:19 Dose: Not Given Pravastatin Sodium (Pravastatin Sodium 40 Mg Tablet) 40 mg PO BEDTIME [facility] Last Admin: 10/31/24 20:20 Dose: 40 mg Senna/Docusate Sodium (Sennosides/Docusate Sodium Tablet) 1 tab PO BID [facility] Last Admin: 11/01/24 08:18 Dose: 1 tab Vitamin D (Cholecalciferol (Vitamin D3) 25 Mcg Tablet) 50 mcg PO DAILY [facility] Last Admin: 11/01/24 08:18 Dose: 50 mcg Allergies Allergies Allergy/AdvReac Type Severity Reaction Status Date / Time meperidine [From Demerol] AdvReac Intermediate Rash Verified 08/23/24 19:34 morphine AdvReac Intermediate Rash Verified 08/23/24 19:35 Sulfa (Sulfonamide AdvReac Intermediate Rash Verified 08/23/24 19:36 Antibiotics) Assessment & Plan Assessment & Plan (1) Schizoaffective disorder: Status: Acute Code(s): F25.9 - Schizoaffective disorder, unspecified Plan Continue plan of care, not overtly psychotic or agitated. flat withdrawn. discharge planning continues. No less restrictive setting consider Namenda for apathy 10/22: continue current management and treatment plan. 10/23: continue current management and treatment plan. 10/24: no change in presentation or management. 10/25: no change in presentation or management. 10/26: no change in presentation or management. 10/27: no change in presentation or management. per staff, brighter and attended group yesterday. +meds, sleeping well. 10/28: constipation, valeria, miralax. 11/01: no change in presentation, no change in plan. Reason for continued inpatient stay Substantial Risk for: inability to function Time Spent With Patient Time: Total time managing care of this patient today ____ minutes.
[2024-11-01 20:00] VITALS: BP 116/56; PULSE 60; RESP 16; TEMP 36.4; O2SAT 98
[2024-11-01] MEDS: OLANZapine ODT 10 MG TAB.RAPDIS 5 MG TRANSLINGU (20:50)
[2024-11-02 08:00] VITALS: BP 119/58; PULSE 60; RESP 14; TEMP 36.6; O2SAT 98
[2024-11-02] MEDS: ARIPiprazole 30 MG TABLET PO (09:04)
--- NOTE | 2024-11-02 13:09 | HO.PSYCHPN ---
Subjective Subjective Date of Service: 11/02/24 Reason For Visit: bipolar 1 disorder current or most recent epi Interim History: no change. in the milieu after lunch. Mental Status Exam Mental Status Exam Narrative: Appearance: adequately dressed and groomed Behavior: guarded, cautious Psychomotor: some retardation Speech: mostly clear, less latency, minimally spontaneous TP: [place] TC: no questions or complaints Mood: good Affect: Flat SI: none expressed HI: none expressed VH/AH: none evidenced Delusions: no overt delusional content noted or reported Insight/judgment: impaired . Diagnostics Vital Signs (24Hr): Vital Signs - 24 hr 11/01/24 20:00 11/02/24 08:00 Temperature 97.6 F 97.9 F Pulse Rate 60 60 Respiratory Rate 16 14 Blood Pressure 116/56 L 119/58 L Pulse Oximetry 98 98 Oxygen Delivery Method Room Air Room Air BMI result Body Mass Index 22.2 Labs 08/27/24 10:00 08/29/24 17:32 Imaging Radiology Impressions: ITS Impressions Head CT 08/25/24 11:33 IMPRESSION: No acute intracranial abnormality. Electronically signed by: Cj Colunga MD 08/25/2024 12:12 PM EST RP KUB X-Ray 10/28/24 09:50 IMPRESSION: Abundant stool without intestinal obstruction pattern. Electronically signed by: Audie Uribe MD 10/28/2024 10:02 AM EDT RP Medications Medications Current Medications Acetaminophen (Acetaminophen 325 Mg Tablet) 650 mg PO Q6H PRN PRN Reason: Headache/Pain, Scale 1-10 Last Admin: 10/11/24 20:15 Dose: 650 mg Al Hydroxide/Mg Hydroxide (Magnesium Hydrox/Alum Hydrox 30 Ml Oral.Susp) 30 ml PO Q6H PRN PRN Reason: Heartburn/Nausea Aripiprazole (Aripiprazole 30 Mg Tablet) 30 mg PO DAILY [facility] Last Admin: 11/02/24 09:04 Dose: 30 mg Benzocaine (Throat Lozenge, Medicated Lozenge) 1 lozenge MUCOUS MEM Q1H PRN PRN Reason: Sore Throat Last Admin: 09/01/24 06:09 Dose: 1 lozenge Guaifenesin/Dextromethorphan (Guaifenesin Dm 200/20/10 Ml 10 Ml Syrup) 10 ml PO Q4H PRN PRN Reason: Cough Last Admin: 08/30/24 05:47 Dose: 10 ml Levothyroxine Sodium (Levothyroxine Sodium 75 Mcg Tablet) 75 mcg PO DAILY@0630 [facility] Last Admin: 11/02/24 06:06 Dose: 75 mcg Lidocaine/Diphenhydr/Alum/Mg/Simeth (Mag&Al/Sim/Diphenhyd/Lidocaine 10 Ml Oral.Susp) 10 ml PO Q6H PRN; Protocol PRN Reason: Painful Gums Last Admin: 08/26/24 13:38 Dose: 10 ml Magnesium Hydroxide (Milk Of Magnesia 30 Ml Oral.Susp) 30 ml PO DAILY PRN PRN Reason: Constipation Memantine (Memantine Hcl 5 Mg Tablet) 5 mg PO DAILY [facility] Last Admin: 11/02/24 09:55 Dose: 5 mg Olanzapine (Olanzapine Odt 10 Mg Tab.Rapdis) 5 mg TRANSLINGU Q6H PRN PRN Reason: Agitation Last Admin: 11/01/24 20:50 Dose: 5 mg Polyethylene Glycol (Polyethylene Glycol 3350 17 Gm Powd.Pack) 17 gm PO DAILY PRN PRN Reason: constipation Pravastatin Sodium (Pravastatin Sodium 40 Mg Tablet) 40 mg PO BEDTIME [facility] Last Admin: 11/01/24 20:50 Dose: 40 mg Senna/Docusate Sodium (Sennosides/Docusate Sodium Tablet) 1 tab PO BID [facility] Last Admin: 11/02/24 09:04 Dose: 1 tab Vitamin D (Cholecalciferol (Vitamin D3) 25 Mcg Tablet) 50 mcg PO DAILY [facility] Last Admin: 11/02/24 09:05 Dose: 50 mcg Allergies Allergies Allergy/AdvReac Type Severity Reaction Status Date / Time meperidine [From Demerol] AdvReac Intermediate Rash Verified 08/23/24 19:34 morphine AdvReac Intermediate Rash Verified 08/23/24 19:35 Sulfa (Sulfonamide AdvReac Intermediate Rash Verified 08/23/24 19:36 Antibiotics) Assessment & Plan Assessment & Plan (1) Schizoaffective disorder: Status: Acute Code(s): F25.9 - Schizoaffective disorder, unspecified Plan Continue plan of care, not overtly psychotic or agitated. flat withdrawn. discharge planning continues. No less restrictive setting consider Namenda for apathy 10/22: continue current management and treatment plan. 10/23: continue current management and treatment plan. 10/24: no change in presentation or management. 10/25: no change in presentation or management. 10/26: no change in presentation or management. 10/27: no change in presentation or management. per staff, brighter and attended group yesterday. +meds, sleeping well. 10/28: constipation, senna, miralax. 11/01: no change in presentation, no change in plan. 11/02: as for yesterday. Reason for continued inpatient stay Substantial Risk for: inability to function Time Spent With Patient Time: Total time managing care of this patient today ____ minutes.
[2024-11-02 20:00] VITALS: BP 115/58; PULSE 82; RESP 16; TEMP 36.3; O2SAT 98
[2024-11-03 08:00] VITALS: BP 109/80; PULSE 93; RESP 16; TEMP 36.6; O2SAT 96
[2024-11-03] MEDS: ARIPiprazole 30 MG TABLET PO (08:05)
--- NOTE | 2024-11-03 16:07 | P.PNPSI_ITS ---
Subjective Subjective Date of Service: 11/03/24 Reason For Visit: bipolar 1 disorder current or most recent epi Interim History: no change. per staff, denies dep/anx. eating, not attending groups. taking meds. slept 8 hours. Mental Status Exam Mental Status Exam Narrative: Appearance: adequately dressed and groomed Behavior: guarded, cautious Psychomotor: some retardation Speech: mostly clear, less latency, minimally spontaneous TP: [place] TC: no questions or complaints Mood: good Affect: Flat SI: none expressed HI: none expressed VH/AH: none evidenced Delusions: no overt delusional content noted or reported Insight/judgment: impaired . Diagnostics Vital Signs (24Hr): Vital Signs - 24 hr 11/02/24 20:00 11/03/24 08:00 Temperature 97.3 F 97.9 F Pulse Rate 82 93 Respiratory Rate 16 16 Blood Pressure 115/58 L 109/80 Pulse Oximetry 98 96 Oxygen Delivery Method Room Air Room Air BMI result Body Mass Index 22.2 Labs 08/27/24 10:00 08/29/24 17:32 Imaging Radiology Impressions: ITS Impressions Head CT 08/25/24 11:33 IMPRESSION: No acute intracranial abnormality. Electronically signed by: Cj Colunga MD 08/25/2024 12:12 PM EST RP KUB X-Ray 10/28/24 09:50 IMPRESSION: Abundant stool without intestinal obstruction pattern. Electronically signed by: Audie Uribe MD 10/28/2024 10:02 AM EDT RP Medications Medications Current Medications Acetaminophen (Acetaminophen 325 Mg Tablet) 650 mg PO Q6H PRN PRN Reason: Headache/Pain, Scale 1-10 Last Admin: 10/11/24 20:15 Dose: 650 mg Al Hydroxide/Mg Hydroxide (Magnesium Hydrox/Alum Hydrox 30 Ml Oral.Susp) 30 ml PO Q6H PRN PRN Reason: Heartburn/Nausea Aripiprazole (Aripiprazole 30 Mg Tablet) 30 mg PO DAILY [place] Last Admin: 11/03/24 08:05 Dose: 30 mg Benzocaine (Throat Lozenge, Medicated Lozenge) 1 lozenge MUCOUS MEM Q1H PRN PRN Reason: Sore Throat Last Admin: 09/01/24 06:09 Dose: 1 lozenge Guaifenesin/Dextromethorphan (Guaifenesin Dm 200/20/10 Ml 10 Ml Syrup) 10 ml PO Q4H PRN PRN Reason: Cough Last Admin: 08/30/24 05:47 Dose: 10 ml Levothyroxine Sodium (Levothyroxine Sodium 75 Mcg Tablet) 75 mcg PO DAILY@0630 [facility] Last Admin: 11/03/24 05:40 Dose: 75 mcg Lidocaine/Diphenhydr/Alum/Mg/Simeth (Mag&Al/Sim/Diphenhyd/Lidocaine 10 Ml Oral.Susp) 10 ml PO Q6H PRN; Protocol PRN Reason: Painful Gums Last Admin: 08/26/24 13:38 Dose: 10 ml Magnesium Hydroxide (Milk Of Magnesia 30 Ml Oral.Susp) 30 ml PO DAILY PRN PRN Reason: Constipation Memantine (Memantine Hcl 5 Mg Tablet) 5 mg PO DAILY [facility] Last Admin: 11/03/24 08:05 Dose: 5 mg Olanzapine (Olanzapine Odt 10 Mg Tab.Rapdis) 5 mg TRANSLINGU Q6H PRN PRN Reason: Agitation Last Admin: 11/01/24 20:50 Dose: 5 mg Polyethylene Glycol (Polyethylene Glycol 3350 17 Gm Powd.Pack) 17 gm PO DAILY PRN PRN Reason: constipation Pravastatin Sodium (Pravastatin Sodium 40 Mg Tablet) 40 mg PO BEDTIME COUNT [facility]CLUD[facility] Last Admin: 11/02/24 20:21 Dose: 40 mg Senna/Docusate Sodium (Sennosides/Docusate Sodium Tablet) 1 tab PO BID COUNT [facility]CLUD[facility] Last Admin: 11/03/24 08:05 Dose: 1 tab Vitamin D (Cholecalciferol (Vitamin D3) 25 Mcg Tablet) 50 mcg PO DAILY COUNT [facility]CLUD[facility] Last Admin: 11/03/24 08:05 Dose: 50 mcg Allergies Allergies Allergy/AdvReac Type Severity Reaction Status Date / Time meperidine [From Demerol] AdvReac Intermediate Rash Verified 08/23/24 19:34 morphine AdvReac Intermediate Rash Verified 08/23/24 19:35 Sulfa (Sulfonamide AdvReac Intermediate Rash Verified 08/23/24 19:36 Antibiotics) Assessment & Plan Assessment & Plan (1) Schizoaffective disorder: Status: Acute Code(s): F25.9 - Schizoaffective disorder, unspecified Plan Continue plan of care, not overtly psychotic or agitated. flat withdrawn. discharge planning continues. No less restrictive setting consider Namenda for apathy 10/22: continue current management and treatment plan. 10/23: continue current management and treatment plan. 10/24: no change in presentation or management. 10/25: no change in presentation or management. 10/26: no change in presentation or management. 10/27: no change in presentation or management. per staff, brighter and attended group yesterday. +meds, sleeping well. 10/28: constipation, senna, miralax. 11/01: no change in presentation, no change in plan. 11/02: as for yesterday. 11/03: no change, continue current mgmt. Reason for continued inpatient stay Substantial Risk for: inability to function Time Spent With Patient Time: Total time managing care of this patient today ____ minutes.
[2024-11-03 20:00] VITALS: BP 109/57; PULSE 85; RESP 16; TEMP 36.6; O2SAT 96
[2024-11-04 08:32] VITALS: BP 154/70; PULSE 96; RESP 18; TEMP 2.4; TEMP 36.4; O2SAT 98
[2024-11-04] MEDS: ARIPiprazole 30 MG TABLET PO (08:35)
[2024-11-04 09:07] VITALS: BMI 22.1
[2024-11-04 19:53] VITALS: BP 118/57; PULSE 67; RESP 16; TEMP 36.2; O2SAT 97
--- NOTE | 2024-11-04 22:36 | P.PNPSI_ITS ---
Subjective Subjective Date of Service: 11/04/24 Reason For Visit: bipolar 1 disorder current or most recent epi Subjective Notes: Conditional Voluntary Interim History: Patient seen chart reviewed case reviewed in treatment planning. Patient without significant manic symptoms some degree of apathy. No acute medical difficulties Mental Status Exam Mental Status Exam Narrative: Appearance: adequately dressed and groomed Behavior: guarded, cautious Psychomotor: some retardation Speech: mostly clear, less latency, minimally spontaneous TP: [place] TC: Poverty of content Mood: good Affect: Flat SI: none expressed HI: none expressed VH/AH: none evidenced Delusions: no overt delusional content Insight/judgment: impaired . Diagnostics Vital Signs (24Hr): Vital Signs - 24 hr 11/04/24 08:32 11/04/24 19:53 Temperature 36.4 F L 97.1 F Pulse Rate 96 67 Respiratory Rate 18 16 Blood Pressure 154/70 H 118/57 L Pulse Oximetry 98 97 Oxygen Delivery Method Room Air Room Air BMI result Body Mass Index 22.1 Labs 08/27/24 10:00 08/29/24 17:32 Imaging Radiology Impressions: ITS Impressions Head CT 08/25/24 11:33 IMPRESSION: No acute intracranial abnormality. Electronically signed by: Cj Colunga MD 08/25/2024 12:12 PM EST RP KUB X-Ray 10/28/24 09:50 IMPRESSION: Abundant stool without intestinal obstruction pattern. Electronically signed by: Audie Uribe MD 10/28/2024 10:02 AM EDT RP Medications Medications Current Medications Acetaminophen (Acetaminophen 325 Mg Tablet) 650 mg PO Q6H PRN PRN Reason: Headache/Pain, Scale 1-10 Last Admin: 10/11/24 20:15 Dose: 650 mg Al Hydroxide/Mg Hydroxide (Magnesium Hydrox/Alum Hydrox 30 Ml Oral.Susp) 30 ml PO Q6H PRN PRN Reason: Heartburn/Nausea Aripiprazole (Aripiprazole 30 Mg Tablet) 30 mg PO DAILY [place] Last Admin: 11/04/24 08:35 Dose: 30 mg Benzocaine (Throat Lozenge, Medicated Lozenge) 1 lozenge MUCOUS MEM Q1H PRN PRN Reason: Sore Throat Last Admin: 09/01/24 06:09 Dose: 1 lozenge Guaifenesin/Dextromethorphan (Guaifenesin Dm 200/20/10 Ml 10 Ml Syrup) 10 ml PO Q4H PRN PRN Reason: Cough Last Admin: 08/30/24 05:47 Dose: 10 ml Levothyroxine Sodium (Levothyroxine Sodium 75 Mcg Tablet) 75 mcg PO DAILY@0630 COUNTS [facility]CLUDE 234 BEDS AT THE [facility] Last Admin: 11/04/24 05:03 Dose: 75 mcg Lidocaine/Diphenhydr/Alum/Mg/Simeth (Mag&Al/Sim/Diphenhyd/Lidocaine 10 Ml Oral.Susp) 10 ml PO Q6H PRN; Protocol PRN Reason: Painful Gums Last Admin: 08/26/24 13:38 Dose: 10 ml Magnesium Hydroxide (Milk Of Magnesia 30 Ml Oral.Susp) 30 ml PO DAILY PRN PRN Reason: Constipation Memantine (Memantine Hcl 5 Mg Tablet) 5 mg PO DAILY COUNTS [facility]CLUDE 234 BEDS AT THE [facility] Last Admin: 11/04/24 08:35 Dose: 5 mg Olanzapine (Olanzapine Odt 10 Mg Tab.Rapdis) 5 mg TRANSLINGU Q6H PRN PRN Reason: Agitation Last Admin: 11/01/24 20:50 Dose: 5 mg Polyethylene Glycol (Polyethylene Glycol 3350 17 Gm Powd.Pack) 17 gm PO DAILY PRN PRN Reason: constipation Pravastatin Sodium (Pravastatin Sodium 40 Mg Tablet) 40 mg PO BEDTIME COUNTS INCLUDE 234 BEDS AT THE [facility] Last Admin: 11/04/24 19:54 Dose: 40 mg Senna/Docusate Sodium (Sennosides/Docusate Sodium Tablet) 1 tab PO BID COUNTS INCLUDE 234 BEDS AT THE [facility] Last Admin: 11/04/24 19:54 Dose: 1 tab Vitamin D (Cholecalciferol (Vitamin D3) 25 Mcg Tablet) 50 mcg PO DAILY COUNTS INCLUDE 234 BEDS AT THE [facility] Last Admin: 11/04/24 08:35 Dose: 50 mcg Allergies Allergies Allergy/AdvReac Type Severity Reaction Status Date / Time meperidine [From Demerol] AdvReac Intermediate Rash Verified 08/23/24 19:34 morphine AdvReac Intermediate Rash Verified 08/23/24 19:35 Sulfa (Sulfonamide AdvReac Intermediate Rash Verified 08/23/24 19:36 Antibiotics) Assessment & Plan Assessment & Plan (1) Schizoaffective disorder: Status: Acute Code(s): F25.9 - Schizoaffective disorder, unspecified Plan Continue plan of care, not overtly psychotic or agitated. flat withdrawn. discharge planning continues. No less restrictive setting consider Namenda for apathy 10/22: continue current management and treatment plan. 10/23: continue current management and treatment plan. 10/24: no change in presentation or management. 10/25: no change in presentation or management. 10/26: no change in presentation or management. 10/27: no change in presentation or management. per staff, brighter and attended group yesterday. +meds, sleeping well. 10/28: constipation, valeria, miralax. 10/31/2024 Patient unremarkable no marked changes noted continue plan of care 11/04/2024 Continue treatment plan discharge planning no less restricted place available at this time Reason for continued inpatient stay Substantial Risk for: inability to function and rapid decompensation Time Spent With Patient Time: Total time managing care of this patient today ____ minutes.
[2024-11-05 08:00] VITALS: BP 128/59; PULSE 67; RESP 14; TEMP 36.7; O2SAT 97
[2024-11-05] MEDS: ARIPiprazole 30 MG TABLET PO (08:37)
--- NOTE | 2024-11-05 12:28 | P.PNPSI_ITS ---
Subjective Subjective Date of Service: 11/05/24 Reason For Visit: bipolar 1 disorder current or most recent epi Subjective Notes: Conditional Voluntary Interim History: Patient was seen and discussed in rounds today. Records and plans were reviewed. She has been stable at baseline. Continues to have some anxiety and depression. Eating and sleeping adequately. No changes were made today Review of Systems Review of Systems Yes all other systems are reviewed and are negative Mental Status Exam Mental Status Exam Narrative: Appearance: adequately dressed and groomed Behavior: guarded, cautious Psychomotor: some retardation Speech: mostly clear, less latency, minimally spontaneous TP: [place] TC: Poverty of content Mood: good Affect: Flat SI: none expressed HI: none expressed VH/AH: none evidenced Delusions: no overt delusional content Insight/judgment: impaired . Diagnostics Vital Signs (24Hr): Vital Signs - 24 hr 11/04/24 19:53 11/05/24 08:00 Temperature 97.1 F 98.1 F Pulse Rate 67 67 Respiratory Rate 16 14 Blood Pressure 118/57 L 128/59 L Pulse Oximetry 97 97 Oxygen Delivery Method Room Air Room Air BMI result Body Mass Index 22.1 Labs 08/27/24 10:00 08/29/24 17:32 Imaging Radiology Impressions: ITS Impressions Head CT 08/25/24 11:33 IMPRESSION: No acute intracranial abnormality. Electronically signed by: Cj Colunga MD 08/25/2024 12:12 PM EST RP KUB X-Ray 10/28/24 09:50 IMPRESSION: Abundant stool without intestinal obstruction pattern. Electronically signed by: Audie Uribe MD 10/28/2024 10:02 AM EDT RP Medications Medications Current Medications Acetaminophen (Acetaminophen 325 Mg Tablet) 650 mg PO Q6H PRN PRN Reason: Headache/Pain, Scale 1-10 Last Admin: 10/11/24 20:15 Dose: 650 mg Al Hydroxide/Mg Hydroxide (Magnesium Hydrox/Alum Hydrox 30 Ml Oral.Susp) 30 ml PO Q6H PRN PRN Reason: Heartburn/Nausea Aripiprazole (Aripiprazole 30 Mg Tablet) 30 mg PO DAILY [place] Last Admin: 11/05/24 08:37 Dose: 30 mg Benzocaine (Throat Lozenge, Medicated Lozenge) 1 lozenge MUCOUS MEM Q1H PRN PRN Reason: Sore Throat Last Admin: 09/01/24 06:09 Dose: 1 lozenge Guaifenesin/Dextromethorphan (Guaifenesin Dm 200/20/10 Ml 10 Ml Syrup) 10 ml PO Q4H PRN PRN Reason: Cough Last Admin: 08/30/24 05:47 Dose: 10 ml Levothyroxine Sodium (Levothyroxine Sodium 75 Mcg Tablet) 75 mcg PO DAILY@0630 [facility] Last Admin: 11/05/24 05:30 Dose: 75 mcg Lidocaine/Diphenhydr/Alum/Mg/Simeth (Mag&Al/Sim/Diphenhyd/Lidocaine 10 Ml Oral.Susp) 10 ml PO Q6H PRN; Protocol PRN Reason: Painful Gums Last Admin: 08/26/24 13:38 Dose: 10 ml Magnesium Hydroxide (Milk Of Magnesia 30 Ml Oral.Susp) 30 ml PO DAILY PRN PRN Reason: Constipation Memantine (Memantine Hcl 5 Mg Tablet) 5 mg PO DAILY [facility] Last Admin: 11/05/24 08:38 Dose: 5 mg Olanzapine (Olanzapine Odt 10 Mg Tab.Rapdis) 5 mg TRANSLINGU Q6H PRN PRN Reason: Agitation Last Admin: 11/01/24 20:50 Dose: 5 mg Polyethylene Glycol (Polyethylene Glycol 3350 17 Gm Powd.Pack) 17 gm PO DAILY PRN PRN Reason: constipation Pravastatin Sodium (Pravastatin Sodium 40 Mg Tablet) 40 mg PO BEDTIME [facility] Last Admin: 11/04/24 19:54 Dose: 40 mg Senna/Docusate Sodium (Sennosides/Docusate Sodium Tablet) 1 tab PO BID [facility] Last Admin: 11/05/24 08:37 Dose: 1 tab Vitamin D (Cholecalciferol (Vitamin D3) 25 Mcg Tablet) 50 mcg PO DAILY [facility] Last Admin: 11/05/24 08:37 Dose: 50 mcg Allergies Allergies Allergy/AdvReac Type Severity Reaction Status Date / Time meperidine [From Demerol] AdvReac Intermediate Rash Verified 08/23/24 19:34 morphine AdvReac Intermediate Rash Verified 08/23/24 19:35 Sulfa (Sulfonamide AdvReac Intermediate Rash Verified 08/23/24 19:36 Antibiotics) Assessment & Plan Assessment & Plan (1) Schizoaffective disorder: Status: Acute Code(s): F25.9 - Schizoaffective disorder, unspecified Plan Continue plan of care, not overtly psychotic or agitated. flat withdrawn. discharge planning continues. No less restrictive setting consider Namenda for apathy 10/22: continue current management and treatment plan. 10/23: continue current management and treatment plan. 10/24: no change in presentation or management. 10/25: no change in presentation or management. 10/26: no change in presentation or management. 10/27: no change in presentation or management. per staff, brighter and attended group yesterday. +meds, sleeping well. 10/28: constipation, valeria, miralax. 10/31/2024 Patient unremarkable no marked changes noted continue plan of care 11/04/2024 Continue treatment plan discharge planning no less restricted place available at this time 11/05: Continue current regimen and plans Reason for continued inpatient stay Substantial Risk for: med/psych decompensation Time Spent With Patient Time: Total time managing care of this patient today ____ minutes.
--- NOTE | 2024-11-05 12:34 | HO.PSYCHPN ---
Subjective Subjective Reason For Visit: bipolar 1 disorder current or most recent epi Diagnostics Vital Signs (24Hr): Vital Signs - 24 hr 11/04/24 19:53 11/05/24 08:00 Temperature 97.1 F 98.1 F Pulse Rate 67 67 Respiratory Rate 16 14 Blood Pressure 118/57 L 128/59 L Pulse Oximetry 97 97 Oxygen Delivery Method Room Air Room Air BMI result Body Mass Index 22.1 Labs 08/27/24 10:00 08/29/24 17:32 Imaging Radiology Impressions: ITS Impressions Head CT 08/25/24 11:33 IMPRESSION: No acute intracranial abnormality. Electronically signed by: Cj Colunga MD 08/25/2024 12:12 PM EST RP KUB X-Ray 10/28/24 09:50 IMPRESSION: Abundant stool without intestinal obstruction pattern. Electronically signed by: Audie Uribe MD 10/28/2024 10:02 AM EDT RP Medications Medications Current Medications Acetaminophen (Acetaminophen 325 Mg Tablet) 650 mg PO Q6H PRN PRN Reason: Headache/Pain, Scale 1-10 Last Admin: 10/11/24 20:15 Dose: 650 mg Al Hydroxide/Mg Hydroxide (Magnesium Hydrox/Alum Hydrox 30 Ml Oral.Susp) 30 ml PO Q6H PRN PRN Reason: Heartburn/Nausea Aripiprazole (Aripiprazole 30 Mg Tablet) 30 mg PO DAILY [facility] Last Admin: 11/05/24 08:37 Dose: 30 mg Benzocaine (Throat Lozenge, Medicated Lozenge) 1 lozenge MUCOUS MEM Q1H PRN PRN Reason: Sore Throat Last Admin: 09/01/24 06:09 Dose: 1 lozenge Guaifenesin/Dextromethorphan (Guaifenesin Dm 200/20/10 Ml 10 Ml Syrup) 10 ml PO Q4H PRN PRN Reason: Cough Last Admin: 08/30/24 05:47 Dose: 10 ml Levothyroxine Sodium (Levothyroxine Sodium 75 Mcg Tablet) 75 mcg PO DAILY@0630 [facility] Last Admin: 11/05/24 05:30 Dose: 75 mcg Lidocaine/Diphenhydr/Alum/Mg/Simeth (Mag&Al/Sim/Diphenhyd/Lidocaine 10 Ml Oral.Susp) 10 ml PO Q6H PRN; Protocol PRN Reason: Painful Gums Last Admin: 08/26/24 13:38 Dose: 10 ml Magnesium Hydroxide (Milk Of Magnesia 30 Ml Oral.Susp) 30 ml PO DAILY PRN PRN Reason: Constipation Memantine (Memantine Hcl 5 Mg Tablet) 5 mg PO DAILY [facility] Last Admin: 11/05/24 08:38 Dose: 5 mg Olanzapine (Olanzapine Odt 10 Mg Tab.Rapdis) 5 mg TRANSLINGU Q6H PRN PRN Reason: Agitation Last Admin: 11/01/24 20:50 Dose: 5 mg Polyethylene Glycol (Polyethylene Glycol 3350 17 Gm Powd.Pack) 17 gm PO DAILY PRN PRN Reason: constipation Pravastatin Sodium (Pravastatin Sodium 40 Mg Tablet) 40 mg PO BEDTIME [facility] Last Admin: 11/04/24 19:54 Dose: 40 mg Senna/Docusate Sodium (Sennosides/Docusate Sodium Tablet) 1 tab PO BID [facility] Last Admin: 11/05/24 08:37 Dose: 1 tab Vitamin D (Cholecalciferol (Vitamin D3) 25 Mcg Tablet) 50 mcg PO DAILY [facility] Last Admin: 11/05/24 08:37 Dose: 50 mcg Allergies Allergies Allergy/AdvReac Type Severity Reaction Status Date / Time meperidine [From Demerol] AdvReac Intermediate Rash Verified 08/23/24 19:34 morphine AdvReac Intermediate Rash Verified 08/23/24 19:35 Sulfa (Sulfonamide AdvReac Intermediate Rash Verified 08/23/24 19:36 Antibiotics) Assessment & Plan Assessment & Plan (1) Schizoaffective disorder: Status: Acute Code(s): F25.9 - Schizoaffective disorder, unspecified Plan Continue plan of care, not overtly psychotic or agitated. flat withdrawn. discharge planning continues. No less restrictive setting consider Namenda for apathy 10/22: continue current management and treatment plan. 10/23: continue current management and treatment plan. 10/24: no change in presentation or management. 10/25: no change in presentation or management. 10/26: no change in presentation or management. 10/27: no change in presentation or management. per staff, brighter and attended group yesterday. +meds, sleeping well. 10/28: constipation, valeria, miralax. 10/31/2024 Patient unremarkable no marked changes noted continue plan of care 11/04/2024 Continue treatment plan discharge planning no less restricted place available at this time 11/05: Continue current regimen and plans Time Spent With Patient Time: Total time managing care of this patient today ____ minutes.
[2024-11-05 20:00] VITALS: BP 122/57; PULSE 82; RESP 16; TEMP 36.3; O2SAT 95
[2024-11-06 08:00] VITALS: BP 162/68; PULSE 94; RESP 16; TEMP 36.6; O2SAT 97
[2024-11-06] MEDS: ARIPiprazole 30 MG TABLET PO (08:58)
--- NOTE | 2024-11-06 10:30 | P.PNPSI_ITS ---
Subjective Subjective Date of Service: 11/06/24 Reason For Visit: bipolar 1 disorder current or most recent epi Subjective Notes: Conditional Voluntary Interim History: Patient was seen and discussed in rounds today. Records and plans were reviewed. She has been stable with difficulty sleeping last night because of her roommate. Eating adequately. No complaints. No dangerous behaviors. No changes were made Review of Systems Review of Systems Yes all other systems are reviewed and are negative Mental Status Exam Mental Status Exam Narrative: Appearance: adequately dressed and groomed Behavior: guarded, cautious Psychomotor: some retardation Speech: mostly clear, less latency, minimally spontaneous TP: [place] TC: Poverty of content Mood: good Affect: Flat SI: none expressed HI: none expressed VH/AH: none evidenced Delusions: no overt delusional content Insight/judgment: impaired . Diagnostics Vital Signs (24Hr): Vital Signs - 24 hr 11/05/24 20:00 11/06/24 08:00 Temperature 97.3 F 97.9 F Pulse Rate 82 94 Respiratory Rate 16 16 Blood Pressure 122/57 L 162/68 H Pulse Oximetry 95 97 Oxygen Delivery Method Room Air Room Air BMI result Body Mass Index 22.1 Labs 08/27/24 10:00 08/29/24 17:32 Imaging Radiology Impressions: ITS Impressions Head CT 08/25/24 11:33 IMPRESSION: No acute intracranial abnormality. Electronically signed by: Cj Colunga MD 08/25/2024 12:12 PM EST RP KUB X-Ray 10/28/24 09:50 IMPRESSION: Abundant stool without intestinal obstruction pattern. Electronically signed by: Audie Uribe MD 10/28/2024 10:02 AM EDT RP Medications Medications Current Medications Acetaminophen (Acetaminophen 325 Mg Tablet) 650 mg PO Q6H PRN PRN Reason: Headache/Pain, Scale 1-10 Last Admin: 10/11/24 20:15 Dose: 650 mg Al Hydroxide/Mg Hydroxide (Magnesium Hydrox/Alum Hydrox 30 Ml Oral.Susp) 30 ml PO Q6H PRN PRN Reason: Heartburn/Nausea Aripiprazole (Aripiprazole 30 Mg Tablet) 30 mg PO DAILY [place] Last Admin: 11/06/24 08:58 Dose: 30 mg Benzocaine (Throat Lozenge, Medicated Lozenge) 1 lozenge MUCOUS MEM Q1H PRN PRN Reason: Sore Throat Last Admin: 09/01/24 06:09 Dose: 1 lozenge Guaifenesin/Dextromethorphan (Guaifenesin Dm 200/20/10 Ml 10 Ml Syrup) 10 ml PO Q4H PRN PRN Reason: Cough Last Admin: 08/30/24 05:47 Dose: 10 ml Levothyroxine Sodium (Levothyroxine Sodium 75 Mcg Tablet) 75 mcg PO DAILY@0630 [facility] Last Admin: 11/06/24 05:29 Dose: 75 mcg Lidocaine/Diphenhydr/Alum/Mg/Simeth (Mag&Al/Sim/Diphenhyd/Lidocaine 10 Ml Oral.Susp) 10 ml PO Q6H PRN; Protocol PRN Reason: Painful Gums Last Admin: 08/26/24 13:38 Dose: 10 ml Magnesium Hydroxide (Milk Of Magnesia 30 Ml Oral.Susp) 30 ml PO DAILY PRN PRN Reason: Constipation Memantine (Memantine Hcl 5 Mg Tablet) 5 mg PO DAILY [facility] Last Admin: 11/06/24 08:59 Dose: 5 mg Olanzapine (Olanzapine Odt 10 Mg Tab.Rapdis) 5 mg TRANSLINGU Q6H PRN PRN Reason: Agitation Last Admin: 11/01/24 20:50 Dose: 5 mg Polyethylene Glycol (Polyethylene Glycol 3350 17 Gm Powd.Pack) 17 gm PO DAILY PRN PRN Reason: constipation Pravastatin Sodium (Pravastatin Sodium 40 Mg Tablet) 40 mg PO BEDTIME [facility] Last Admin: 11/05/24 21:06 Dose: 40 mg Senna/Docusate Sodium (Sennosides/Docusate Sodium Tablet) 1 tab PO BID [facility] Last Admin: 11/06/24 08:59 Dose: 1 tab Vitamin D (Cholecalciferol (Vitamin D3) 25 Mcg Tablet) 50 mcg PO DAILY [facility] Last Admin: 11/06/24 08:58 Dose: 50 mcg Allergies Allergies Allergy/AdvReac Type Severity Reaction Status Date / Time meperidine [From Demerol] AdvReac Intermediate Rash Verified 08/23/24 19:34 morphine AdvReac Intermediate Rash Verified 08/23/24 19:35 Sulfa (Sulfonamide AdvReac Intermediate Rash Verified 08/23/24 19:36 Antibiotics) Assessment & Plan Assessment & Plan (1) Schizoaffective disorder: Status: Acute Code(s): F25.9 - Schizoaffective disorder, unspecified Assessment and Plan: 11/06: Continue current regimen and plans Reason for continued inpatient stay Substantial Risk for: med/psych decompensation Time Spent With Patient Time: Total time managing care of this patient today ____ minutes.
[2024-11-06 20:00] VITALS: BP 123/59; PULSE 78; RESP 18; TEMP 36.2; O2SAT 99
[2024-11-07 08:00] VITALS: BP 148/68; PULSE 108; RESP 15; TEMP 36.9; O2SAT 96
[2024-11-07] MEDS: ARIPiprazole 30 MG TABLET PO (08:10)
--- NOTE | 2024-11-07 11:33 | HO.PSYCHPN ---
Subjective Subjective Date of Service: 11/07/24 Reason For Visit: bipolar 1 disorder current or most recent epi Subjective Notes: Conditional Voluntary Healthcare Proxy: Yes Interim History: Pt slept through the night. No behavioral concerns. She is in bed, poor eye contact when this telegraphic typewriter mechanic reached out to her. She reports she is doing well. She denies any concerns. No overt psychosis or delusions. She is taking medications as prescribed. No behavioral concerns. poverty of thought. Review of Systems Review of Systems Pt denies chest pain. No abdominal pain. No diarrhea or constipation. Yes all other systems are reviewed and are negative Mental Status Exam Mental Status Exam Narrative: Appearance: adequately dressed and groomed Behavior: guarded, cautious Psychomotor: some retardation Speech: mostly clear, less latency, minimally spontaneous TP: [place] TC: Poverty of content Mood: good Affect: Flat SI: none expressed HI: none expressed VH/AH: none evidenced Delusions: no overt delusional content Insight/judgment: impaired . Diagnostics Vital Signs (24Hr): Vital Signs - 24 hr 11/06/24 20:00 11/07/24 08:00 Temperature 97.1 F 98.5 F Pulse Rate 78 108 H Respiratory Rate 18 15 Blood Pressure 123/59 L 148/68 H Pulse Oximetry 99 96 Oxygen Delivery Method Room Air Room Air BMI result Body Mass Index 22.1 Labs 08/27/24 10:00 08/29/24 17:32 Imaging Radiology Impressions: ITS Impressions Head CT 08/25/24 11:33 IMPRESSION: No acute intracranial abnormality. Electronically signed by: Cj Colunga MD 08/25/2024 12:12 PM EST RP KUB X-Ray 10/28/24 09:50 IMPRESSION: Abundant stool without intestinal obstruction pattern. Electronically signed by: Audie Uribe MD 10/28/2024 10:02 AM EDT RP Medications Medications Current Medications Acetaminophen (Acetaminophen 325 Mg Tablet) 650 mg PO Q6H PRN PRN Reason: Headache/Pain, Scale 1-10 Last Admin: 10/11/24 20:15 Dose: 650 mg Al Hydroxide/Mg Hydroxide (Magnesium Hydrox/Alum Hydrox 30 Ml Oral.Susp) 30 ml PO Q6H PRN PRN Reason: Heartburn/Nausea Aripiprazole (Aripiprazole 30 Mg Tablet) 30 mg PO DAILY [facility] Last Admin: 11/07/24 08:10 Dose: 30 mg Benzocaine (Throat Lozenge, Medicated Lozenge) 1 lozenge MUCOUS MEM Q1H PRN PRN Reason: Sore Throat Last Admin: 09/01/24 06:09 Dose: 1 lozenge Guaifenesin/Dextromethorphan (Guaifenesin Dm 200/20/10 Ml 10 Ml Syrup) 10 ml PO Q4H PRN PRN Reason: Cough Last Admin: 08/30/24 05:47 Dose: 10 ml Levothyroxine Sodium (Levothyroxine Sodium 75 Mcg Tablet) 75 mcg PO DAILY@0630 [facility] Last Admin: 11/07/24 06:05 Dose: 75 mcg Lidocaine/Diphenhydr/Alum/Mg/Simeth (Mag&Al/Sim/Diphenhyd/Lidocaine 10 Ml Oral.Susp) 10 ml PO Q6H PRN; Protocol PRN Reason: Painful Gums Last Admin: 08/26/24 13:38 Dose: 10 ml Magnesium Hydroxide (Milk Of Magnesia 30 Ml Oral.Susp) 30 ml PO DAILY PRN PRN Reason: Constipation Memantine (Memantine Hcl 5 Mg Tablet) 5 mg PO DAILY [facility] Last Admin: 11/07/24 08:10 Dose: 5 mg Olanzapine (Olanzapine Odt 10 Mg Tab.Rapdis) 5 mg TRANSLINGU Q6H PRN PRN Reason: Agitation Last Admin: 11/01/24 20:50 Dose: 5 mg Polyethylene Glycol (Polyethylene Glycol 3350 17 Gm Powd.Pack) 17 gm PO DAILY PRN PRN Reason: constipation Pravastatin Sodium (Pravastatin Sodium 40 Mg Tablet) 40 mg PO BEDTIME [facility] Last Admin: 11/06/24 20:57 Dose: 40 mg Senna/Docusate Sodium (Sennosides/Docusate Sodium Tablet) 1 tab PO BID [facility] Last Admin: 11/07/24 08:10 Dose: 1 tab Vitamin D (Cholecalciferol (Vitamin D3) 25 Mcg Tablet) 50 mcg PO DAILY [facility] Last Admin: 11/07/24 08:10 Dose: 50 mcg Allergies Allergies Allergy/AdvReac Type Severity Reaction Status Date / Time meperidine [From Demerol] AdvReac Intermediate Rash Verified 08/23/24 19:34 morphine AdvReac Intermediate Rash Verified 08/23/24 19:35 Sulfa (Sulfonamide AdvReac Intermediate Rash Verified 08/23/24 19:36 Antibiotics) Assessment & Plan Assessment & Plan (1) Schizoaffective disorder: Status: Acute Code(s): F25.9 - Schizoaffective disorder, unspecified Plan Ms. Thomas is a 69 year-old woman with hx of Bipolar Disorder, she currently presents with several symptoms suggestive of negative symptoms seem usually in schizoaffective disorder including constricted affect, abulia (some acknowledgment that she needed to initiate certain activities like going to dentist but still not doing so for unclear reasons). No overt paranoid delusions, her delayed response may be signs of thought blocking and underlying psychosis. She is in agreement to receive treatment and complete work up to also assess her memory and cognition. 11/07 continue tx. awaiting placement. Reason for continued inpatient stay Substantial Risk for: inability to function Time Spent With Patient Time: Total time managing care of this patient today ____ minutes.
[2024-11-07 20:00] VITALS: BP 113/55; PULSE 93; RESP 16; TEMP 36.8; O2SAT 95
[2024-11-08 08:12] VITALS: BP 113/54; PULSE 90; RESP 16; TEMP 36.8; O2SAT 98
[2024-11-08] MEDS: ARIPiprazole 30 MG TABLET PO (08:13)
--- NOTE | 2024-11-08 16:19 | HO.PSYCHPN ---
Subjective Subjective Date of Service: 11/08/24 Reason For Visit: bipolar 1 disorder current or most recent epi Interim History: appears brighter, more energetic today. out of bed in new outfit. no complaints or requests. per staff, no change. Mental Status Exam Mental Status Exam Narrative: Appearance: adequately dressed and groomed Psychomotor: some retardation Speech: mostly clear, less latency, minimally spontaneous TP: [place] TC: no questions or complaints Mood: good Affect: Flat SI: none expressed HI: none expressed VH/AH: none evidenced Delusions: no overt delusional content noted or reported Insight/judgment: impaired . Diagnostics Vital Signs (24Hr): Vital Signs - 24 hr 11/07/24 20:00 11/08/24 08:12 Temperature 98.2 F 98.2 F Pulse Rate 93 90 Respiratory Rate 16 16 Blood Pressure 113/55 L 113/54 L Pulse Oximetry 95 98 Oxygen Delivery Method Room Air Room Air BMI result Body Mass Index 22.1 Labs 08/27/24 10:00 08/29/24 17:32 Imaging Radiology Impressions: [facility] Impressions Head CT 08/25/24 11:33 IMPRESSION: No acute intracranial abnormality. Electronically signed by: Cj Colunga MD 08/25/2024 12:12 PM EST RP [facility] X-Ray 10/28/24 09:50 IMPRESSION: Abundant stool without intestinal obstruction pattern. Electronically signed by: Audie Uribe MD 10/28/2024 10:02 AM EDT RP Medications Medications Current Medications Acetaminophen (Acetaminophen 325 Mg Tablet) 650 mg PO Q6H PRN PRN Reason: Headache/Pain, Scale 1-10 Last Admin: 10/11/24 20:15 Dose: 650 mg Al Hydroxide/Mg Hydroxide (Magnesium Hydrox/Alum Hydrox 30 Ml Oral.Susp) 30 ml PO Q6H PRN PRN Reason: Heartburn/Nausea Aripiprazole (Aripiprazole 30 Mg Tablet) 30 mg PO DAILY [facility] Last Admin: 11/08/24 08:13 Dose: 30 mg Benzocaine (Throat Lozenge, Medicated Lozenge) 1 lozenge MUCOUS MEM Q1H PRN PRN Reason: Sore Throat Last Admin: 09/01/24 06:09 Dose: 1 lozenge Guaifenesin/Dextromethorphan (Guaifenesin Dm 200/20/10 Ml 10 Ml Syrup) 10 ml PO Q4H PRN PRN Reason: Cough Last Admin: 08/30/24 05:47 Dose: 10 ml Levothyroxine Sodium (Levothyroxine Sodium 75 Mcg Tablet) 75 mcg PO DAILY@0630 [facility] Last Admin: 11/08/24 06:05 Dose: 75 mcg Lidocaine/Diphenhydr/Alum/Mg/Simeth (Mag&Al/Sim/Diphenhyd/Lidocaine 10 Ml Oral.Susp) 10 ml PO Q6H PRN; Protocol PRN Reason: Painful Gums Last Admin: 08/26/24 13:38 Dose: 10 ml Magnesium Hydroxide (Milk Of Magnesia 30 Ml Oral.Susp) 30 ml PO DAILY PRN PRN Reason: Constipation Memantine (Memantine Hcl 5 Mg Tablet) 5 mg PO DAILY [facility] Last Admin: 11/08/24 08:13 Dose: 5 mg Olanzapine (Olanzapine Odt 10 Mg Tab.Rapdis) 5 mg TRANSLINGU Q6H PRN PRN Reason: Agitation Last Admin: 11/01/24 20:50 Dose: 5 mg Polyethylene Glycol (Polyethylene Glycol 3350 17 Gm Powd.Pack) 17 gm PO DAILY PRN PRN Reason: constipation Pravastatin Sodium (Pravastatin Sodium 40 Mg Tablet) 40 mg PO BEDTIME [facility] Last Admin: 11/07/24 20:35 Dose: 40 mg Senna/Docusate Sodium (Sennosides/Docusate Sodium Tablet) 1 tab PO BID [facility] Last Admin: 11/08/24 08:13 Dose: 1 tab Vitamin D (Cholecalciferol (Vitamin D3) 25 Mcg Tablet) 50 mcg PO DAILY [facility] Last Admin: 11/08/24 08:13 Dose: 50 mcg Allergies Allergies Allergy/AdvReac Type Severity Reaction Status Date / Time meperidine [From Demerol] AdvReac Intermediate Rash Verified 08/23/24 19:34 morphine AdvReac Intermediate Rash Verified 08/23/24 19:35 Sulfa (Sulfonamide AdvReac Intermediate Rash Verified 08/23/24 19:36 Antibiotics) Assessment & Plan Assessment & Plan (1) Schizoaffective disorder: Status: Acute Code(s): F25.9 - Schizoaffective disorder, unspecified Plan Ms. Thomas is a 69 year-old woman with hx of Bipolar Disorder, she currently presents with several symptoms suggestive of negative symptoms seem usually in schizoaffective disorder including constricted affect, abulia (some acknowledgment that she needed to initiate certain activities like going to dentist but still not doing so for unclear reasons). No overt paranoid delusions, her delayed response may be signs of thought blocking and underlying psychosis. She is in agreement to receive treatment and complete work up to also assess her memory and cognition. 11/07 continue tx. awaiting placement. 11/08: stable presentation, awaiting placement. Reason for continued inpatient stay Substantial Risk for: inability to function Time Spent With Patient Time: Total time managing care of this patient today ____ minutes.
[2024-11-08 20:00] VITALS: BP 126/58; PULSE 77; RESP 18; TEMP 36.5; O2SAT 98
[2024-11-09 08:47] VITALS: BP 113/55; PULSE 84; RESP 18; TEMP 36.3; O2SAT 100
[2024-11-09] MEDS: ARIPiprazole 30 MG TABLET PO (08:49)
--- NOTE | 2024-11-09 12:46 | P.PNPSI_ITS ---
Subjective Subjective Date of Service: 11/09/24 Reason For Visit: bipolar 1 disorder current or most recent epi Interim History: no change in presentation. no complaints or requests. per staff, out of room for meals only. taking meds. flat. no issues. slept 6 hours. did spend some OT time in milieu. Mental Status Exam Mental Status Exam Narrative: Appearance: adequately dressed and groomed Psychomotor: some retardation Speech: mostly clear, less latency, minimally spontaneous TP: [place] TC: no questions or complaints Mood: good Affect: Flat SI: none expressed HI: none expressed VH/AH: none evidenced Delusions: no overt delusional content noted or reported Insight/judgment: impaired . Diagnostics Vital Signs (24Hr): Vital Signs - 24 hr 11/08/24 20:00 11/09/24 08:47 Temperature 97.7 F 97.3 F Pulse Rate 77 84 Respiratory Rate 18 18 Blood Pressure 126/58 L 113/55 L Pulse Oximetry 98 100 Oxygen Delivery Method Room Air Room Air BMI result Body Mass Index 22.1 Labs 08/27/24 10:00 08/29/24 17:32 Imaging Radiology Impressions: [facility] Impressions Head CT 08/25/24 11:33 IMPRESSION: No acute intracranial abnormality. Electronically signed by: Cj Colunga MD 08/25/2024 12:12 PM EST RP [facility] X-Ray 10/28/24 09:50 IMPRESSION: Abundant stool without intestinal obstruction pattern. Electronically signed by: Audie Uribe MD 10/28/2024 10:02 AM EDT RP Medications Medications Current Medications Acetaminophen (Acetaminophen 325 Mg Tablet) 650 mg PO Q6H PRN PRN Reason: Headache/Pain, Scale 1-10 Last Admin: 10/11/24 20:15 Dose: 650 mg Al Hydroxide/Mg Hydroxide (Magnesium Hydrox/Alum Hydrox 30 Ml Oral.Susp) 30 ml PO Q6H PRN PRN Reason: Heartburn/Nausea Aripiprazole (Aripiprazole 30 Mg Tablet) 30 mg PO DAILY [facility] Last Admin: 11/09/24 08:49 Dose: 30 mg Benzocaine (Throat Lozenge, Medicated Lozenge) 1 lozenge MUCOUS MEM Q1H PRN PRN Reason: Sore Throat Last Admin: 09/01/24 06:09 Dose: 1 lozenge Guaifenesin/Dextromethorphan (Guaifenesin Dm 200/20/10 Ml 10 Ml Syrup) 10 ml PO Q4H PRN PRN Reason: Cough Last Admin: 08/30/24 05:47 Dose: 10 ml Levothyroxine Sodium (Levothyroxine Sodium 75 Mcg Tablet) 75 mcg PO DAILY@0630 [facility] Last Admin: 11/09/24 06:32 Dose: 75 mcg Lidocaine/Diphenhydr/Alum/Mg/Simeth (Mag&Al/Sim/Diphenhyd/Lidocaine 10 Ml Oral.Susp) 10 ml PO Q6H PRN; Protocol PRN Reason: Painful Gums Last Admin: 08/26/24 13:38 Dose: 10 ml Magnesium Hydroxide (Milk Of Magnesia 30 Ml Oral.Susp) 30 ml PO DAILY PRN PRN Reason: Constipation Memantine (Memantine Hcl 5 Mg Tablet) 5 mg PO DAILY [facility] Last Admin: 11/09/24 08:49 Dose: 5 mg Olanzapine (Olanzapine Odt 10 Mg Tab.Rapdis) 5 mg TRANSLINGU Q6H PRN PRN Reason: Agitation Last Admin: 11/01/24 20:50 Dose: 5 mg Polyethylene Glycol (Polyethylene Glycol 3350 17 Gm Powd.Pack) 17 gm PO DAILY PRN PRN Reason: constipation Pravastatin Sodium (Pravastatin Sodium 40 Mg Tablet) 40 mg PO BEDTIME [facility] Last Admin: 11/08/24 20:47 Dose: 40 mg Senna/Docusate Sodium (Sennosides/Docusate Sodium Tablet) 1 tab PO BID [facility] Last Admin: 11/09/24 08:48 Dose: 1 tab Vitamin D (Cholecalciferol (Vitamin D3) 25 Mcg Tablet) 50 mcg PO DAILY [facility] Last Admin: 11/09/24 08:48 Dose: 50 mcg Allergies Allergies Allergy/AdvReac Type Severity Reaction Status Date / Time meperidine [From Demerol] AdvReac Intermediate Rash Verified 08/23/24 19:34 morphine AdvReac Intermediate Rash Verified 08/23/24 19:35 Sulfa (Sulfonamide AdvReac Intermediate Rash Verified 08/23/24 19:36 Antibiotics) Assessment & Plan Assessment & Plan (1) Schizoaffective disorder: Status: Acute Code(s): F25.9 - Schizoaffective disorder, unspecified Plan Ms. Thomas is a 69 year-old woman with hx of Bipolar Disorder, she currently presents with several symptoms suggestive of negative symptoms seem usually in schizoaffective disorder including constricted affect, abulia (some acknowledgment that she needed to initiate certain activities like going to dentist but still not doing so for unclear reasons). No overt paranoid delusions, her delayed response may be signs of thought blocking and underlying psychosis. She is in agreement to receive treatment and complete work up to also assess her memory and cognition. 11/07 continue tx. awaiting placement. 11/08: stable presentation, awaiting placement. 11/09: no change, awaiting placement. Reason for continued inpatient stay Substantial Risk for: inability to function and rapid decompensation Time Spent With Patient Time: Total time managing care of this patient today ____ minutes.
[2024-11-09 20:25] VITALS: BP 103/54; PULSE 79; RESP 16; TEMP 37.1; O2SAT 96
[2024-11-10 08:00] VITALS: BP 121/63; PULSE 80; RESP 18; TEMP 36.9; O2SAT 97
[2024-11-10] MEDS: ARIPiprazole 30 MG TABLET PO (08:55)
[2024-11-10 10:26] VITALS: BMI 22.6
--- NOTE | 2024-11-10 10:28 | P.PNPSI_ITS ---
Subjective Subjective Reason For Visit: bipolar 1 disorder current or most recent epi Diagnostics Vital Signs (24Hr): Vital Signs - 24 hr 11/09/24 20:25 11/10/24 08:00 Temperature 98.8 F 98.4 F Pulse Rate 79 80 Respiratory Rate 16 18 Blood Pressure 103/54 L 121/63 Pulse Oximetry 96 97 Oxygen Delivery Method Room Air Room Air BMI result Body Mass Index 22.6 Labs 08/27/24 10:00 08/29/24 17:32 Imaging Radiology Impressions: [facility] Impressions Head CT 08/25/24 11:33 IMPRESSION: No acute intracranial abnormality. Electronically signed by: Cj Colunga MD 08/25/2024 12:12 PM EST RP [facility] X-Ray 10/28/24 09:50 IMPRESSION: Abundant stool without intestinal obstruction pattern. Electronically signed by: Audie Uribe MD 10/28/2024 10:02 AM EDT RP Medications Medications Current Medications Acetaminophen (Acetaminophen 325 Mg Tablet) 650 mg PO Q6H PRN PRN Reason: Headache/Pain, Scale 1-10 Last Admin: 10/11/24 20:15 Dose: 650 mg Al Hydroxide/Mg Hydroxide (Magnesium Hydrox/Alum Hydrox 30 Ml Oral.Susp) 30 ml PO Q6H PRN PRN Reason: Heartburn/Nausea Aripiprazole (Aripiprazole 30 Mg Tablet) 30 mg PO DAILY [facility] Last Admin: 11/10/24 08:55 Dose: 30 mg Benzocaine (Throat Lozenge, Medicated Lozenge) 1 lozenge MUCOUS MEM Q1H PRN PRN Reason: Sore Throat Last Admin: 09/01/24 06:09 Dose: 1 lozenge Guaifenesin/Dextromethorphan (Guaifenesin Dm 200/20/10 Ml 10 Ml Syrup) 10 ml PO Q4H PRN PRN Reason: Cough Last Admin: 08/30/24 05:47 Dose: 10 ml Levothyroxine Sodium (Levothyroxine Sodium 75 Mcg Tablet) 75 mcg PO DAILY@0630 [facility] Last Admin: 11/10/24 05:58 Dose: 75 mcg Lidocaine/Diphenhydr/Alum/Mg/Simeth (Mag&Al/Sim/Diphenhyd/Lidocaine 10 Ml Oral.Susp) 10 ml PO Q6H PRN; Protocol PRN Reason: Painful Gums Last Admin: 08/26/24 13:38 Dose: 10 ml Magnesium Hydroxide (Milk Of Magnesia 30 Ml Oral.Susp) 30 ml PO DAILY PRN PRN Reason: Constipation Memantine (Memantine Hcl 5 Mg Tablet) 5 mg PO DAILY [facility] Last Admin: 11/10/24 08:55 Dose: 5 mg Olanzapine (Olanzapine Odt 10 Mg Tab.Rapdis) 5 mg TRANSLINGU Q6H PRN PRN Reason: Agitation Last Admin: 11/01/24 20:50 Dose: 5 mg Polyethylene Glycol (Polyethylene Glycol 3350 17 Gm Powd.Pack) 17 gm PO DAILY PRN PRN Reason: constipation Pravastatin Sodium (Pravastatin Sodium 40 Mg Tablet) 40 mg PO BEDTIME [facility] Last Admin: 11/09/24 20:04 Dose: 40 mg Senna/Docusate Sodium (Sennosides/Docusate Sodium Tablet) 1 tab PO BID [facility] Last Admin: 11/10/24 08:55 Dose: 1 tab Vitamin D (Cholecalciferol (Vitamin D3) 25 Mcg Tablet) 50 mcg PO DAILY [facility] Last Admin: 11/10/24 08:55 Dose: 50 mcg Allergies Allergies Allergy/AdvReac Type Severity Reaction Status Date / Time meperidine [From Demerol] AdvReac Intermediate Rash Verified 08/23/24 19:34 morphine AdvReac Intermediate Rash Verified 08/23/24 19:35 Sulfa (Sulfonamide AdvReac Intermediate Rash Verified 08/23/24 19:36 Antibiotics) Assessment & Plan Assessment & Plan (1) Schizoaffective disorder: Status: Acute Code(s): F25.9 - Schizoaffective disorder, unspecified Plan Ms. Thomas is a 69 year-old woman with hx of Bipolar Disorder, she currently presents with several symptoms suggestive of negative symptoms seem usually in schizoaffective disorder including constricted affect, abulia (some acknowledgment that she needed to initiate certain activities like going to dentist but still not doing so for unclear reasons). No overt paranoid delusions, her delayed response may be signs of thought blocking and underlying psychosis. She is in agreement to receive treatment and complete work up to also assess her memory and cognition. 11/07 continue tx. awaiting placement. 11/08: stable presentation, awaiting placement. 5/14: no change, awaiting placement. Time Spent With Patient Time: Total time managing care of this patient today ____ minutes.
--- NOTE | 2024-11-10 15:48 | P.PNPSI_ITS ---
Subjective Subjective Date of Service: 11/10/24 Reason For Visit: bipolar 1 disorder current or most recent epi Interim History: no change in presentation. back to [employer] track suit. no questions or complaints. Mental Status Exam Mental Status Exam Narrative: Appearance: adequately dressed and groomed Psychomotor: some retardation Speech: mostly clear, less latency, minimally spontaneous TP: [place] TC: no questions or complaints Mood: good Affect: Flat SI: none expressed HI: none expressed VH/AH: none evidenced Delusions: no overt delusional content noted or reported Insight/judgment: impaired . Diagnostics Vital Signs (24Hr): Vital Signs - 24 hr 11/09/24 20:25 11/10/24 08:00 Temperature 98.8 F 98.4 F Pulse Rate 79 80 Respiratory Rate 16 18 Blood Pressure 103/54 L 121/63 Pulse Oximetry 96 97 Oxygen Delivery Method Room Air Room Air BMI result Body Mass Index 22.6 Labs 08/27/24 10:00 08/29/24 17:32 Imaging Radiology Impressions: [facility] Impressions Head CT 08/25/24 11:33 IMPRESSION: No acute intracranial abnormality. Electronically signed by: Cj Colunga MD 08/25/2024 12:12 PM EST RP [facility] X-Ray 10/28/24 09:50 IMPRESSION: Abundant stool without intestinal obstruction pattern. Electronically signed by: Audie Uribe MD 10/28/2024 10:02 AM EDT RP Medications Medications Current Medications Acetaminophen (Acetaminophen 325 Mg Tablet) 650 mg PO Q6H PRN PRN Reason: Headache/Pain, Scale 1-10 Last Admin: 10/11/24 20:15 Dose: 650 mg Al Hydroxide/Mg Hydroxide (Magnesium Hydrox/Alum Hydrox 30 Ml Oral.Susp) 30 ml PO Q6H PRN PRN Reason: Heartburn/Nausea Aripiprazole (Aripiprazole 30 Mg Tablet) 30 mg PO DAILY [facility] Last Admin: 11/10/24 08:55 Dose: 30 mg Benzocaine (Throat Lozenge, Medicated Lozenge) 1 lozenge MUCOUS MEM Q1H PRN PRN Reason: Sore Throat Last Admin: 09/01/24 06:09 Dose: 1 lozenge Guaifenesin/Dextromethorphan (Guaifenesin Dm 200/20/10 Ml 10 Ml Syrup) 10 ml PO Q4H PRN PRN Reason: Cough Last Admin: 08/30/24 05:47 Dose: 10 ml Levothyroxine Sodium (Levothyroxine Sodium 75 Mcg Tablet) 75 mcg PO DAILY@0630 [facility] Last Admin: 11/10/24 05:58 Dose: 75 mcg Lidocaine/Diphenhydr/Alum/Mg/Simeth (Mag&Al/Sim/Diphenhyd/Lidocaine 10 Ml Oral.Susp) 10 ml PO Q6H PRN; Protocol PRN Reason: Painful Gums Last Admin: 08/26/24 13:38 Dose: 10 ml Magnesium Hydroxide (Milk Of Magnesia 30 Ml Oral.Susp) 30 ml PO DAILY PRN PRN Reason: Constipation Memantine (Memantine Hcl 5 Mg Tablet) 5 mg PO DAILY [facility] Last Admin: 11/10/24 08:55 Dose: 5 mg Olanzapine (Olanzapine Odt 10 Mg Tab.Rapdis) 5 mg TRANSLINGU Q6H PRN PRN Reason: Agitation Last Admin: 11/01/24 20:50 Dose: 5 mg Polyethylene Glycol (Polyethylene Glycol 3350 17 Gm Powd.Pack) 17 gm PO DAILY PRN PRN Reason: constipation Pravastatin Sodium (Pravastatin Sodium 40 Mg Tablet) 40 mg PO BEDTIME [facility] Last Admin: 11/09/24 20:04 Dose: 40 mg Senna/Docusate Sodium (Sennosides/Docusate Sodium Tablet) 1 tab PO BID [facility] Last Admin: 11/10/24 08:55 Dose: 1 tab Vitamin D (Cholecalciferol (Vitamin D3) 25 Mcg Tablet) 50 mcg PO DAILY [facility] Last Admin: 11/10/24 08:55 Dose: 50 mcg Allergies Allergies Allergy/AdvReac Type Severity Reaction Status Date / Time meperidine [From Demerol] AdvReac Intermediate Rash Verified 08/23/24 19:34 morphine AdvReac Intermediate Rash Verified 08/23/24 19:35 Sulfa (Sulfonamide AdvReac Intermediate Rash Verified 08/23/24 19:36 Antibiotics) Assessment & Plan Assessment & Plan (1) Schizoaffective disorder: Status: Acute Code(s): F25.9 - Schizoaffective disorder, unspecified Plan Ms. Thomas is a 69 year-old woman with hx of Bipolar Disorder, she currently presents with several symptoms suggestive of negative symptoms seem usually in schizoaffective disorder including constricted affect, abulia (some acknowledgment that she needed to initiate certain activities like going to dentist but still not doing so for unclear reasons). No overt paranoid delusions, her delayed response may be signs of thought blocking and underlying psychosis. She is in agreement to receive treatment and complete work up to also assess her memory and cognition. 11/07 continue tx. awaiting placement. 11/08: stable presentation, awaiting placement. 11/09: no change, awaiting placement. 11/10: no change in presentation. stable. continue current mgmt. Reason for continued inpatient stay Substantial Risk for: inability to function Time Spent With Patient Time: Total time managing care of this patient today ____ minutes.
[2024-11-10 20:00] VITALS: BP 104/53; PULSE 80; RESP 18; TEMP 37; O2SAT 95
[2024-11-11 08:50] VITALS: BP 115/59; PULSE 82; RESP 16; TEMP 36.4; O2SAT 96
[2024-11-11] MEDS: ARIPiprazole 30 MG TABLET PO (09:48)
--- NOTE | 2024-11-11 12:53 | HO.PSYCHPN ---
Subjective Subjective Date of Service: 11/11/24 Reason For Visit: bipolar 1 disorder current or most recent epi Interim History: no change in presentation. per staff, taking meds, isolative, out for meals only. flat. denies anx/dep. Mental Status Exam Mental Status Exam Narrative: Appearance: adequately dressed and groomed Psychomotor: some retardation Speech: mostly clear, less latency, minimally spontaneous TP: [place] TC: no questions or complaints Mood: good Affect: Flat SI: none expressed HI: none expressed VH/AH: none evidenced Delusions: no overt delusional content noted or reported Insight/judgment: impaired . Diagnostics Vital Signs (24Hr): Vital Signs - 24 hr 11/10/24 20:00 11/11/24 08:50 Temperature 98.6 F 97.6 F Pulse Rate 80 82 Respiratory Rate 18 16 Blood Pressure 104/53 L 115/59 L Pulse Oximetry 95 96 Oxygen Delivery Method Room Air Room Air BMI result Body Mass Index 22.6 Labs 08/27/24 10:00 08/29/24 17:32 Imaging Radiology Impressions: ITS Impressions Head CT 08/25/24 11:33 IMPRESSION: No acute intracranial abnormality. Electronically signed by: Cj Colunga MD 08/25/2024 12:12 PM EST RP KUB X-Ray 10/28/24 09:50 IMPRESSION: Abundant stool without intestinal obstruction pattern. Electronically signed by: Audie Uribe MD 10/28/2024 10:02 AM EDT RP Medications Medications Current Medications Acetaminophen (Acetaminophen 325 Mg Tablet) 650 mg PO Q6H PRN PRN Reason: Headache/Pain, Scale 1-10 Last Admin: 10/11/24 20:15 Dose: 650 mg Al Hydroxide/Mg Hydroxide (Magnesium Hydrox/Alum Hydrox 30 Ml Oral.Susp) 30 ml PO Q6H PRN PRN Reason: Heartburn/Nausea Aripiprazole (Aripiprazole 30 Mg Tablet) 30 mg PO DAILY [facility] Last Admin: 11/11/24 09:48 Dose: 30 mg Benzocaine (Throat Lozenge, Medicated Lozenge) 1 lozenge MUCOUS MEM Q1H PRN PRN Reason: Sore Throat Last Admin: 09/01/24 06:09 Dose: 1 lozenge Guaifenesin/Dextromethorphan (Guaifenesin Dm 200/20/10 Ml 10 Ml Syrup) 10 ml PO Q4H PRN PRN Reason: Cough Last Admin: 08/30/24 05:47 Dose: 10 ml Levothyroxine Sodium (Levothyroxine Sodium 75 Mcg Tablet) 75 mcg PO DAILY@0630 [facility] Last Admin: 11/11/24 05:56 Dose: 75 mcg Lidocaine/Diphenhydr/Alum/Mg/Simeth (Mag&Al/Sim/Diphenhyd/Lidocaine 10 Ml Oral.Susp) 10 ml PO Q6H PRN; Protocol PRN Reason: Painful Gums Last Admin: 08/26/24 13:38 Dose: 10 ml Magnesium Hydroxide (Milk Of Magnesia 30 Ml Oral.Susp) 30 ml PO DAILY PRN PRN Reason: Constipation Memantine (Memantine Hcl 5 Mg Tablet) 5 mg PO DAILY [facility] Last Admin: 11/11/24 09:48 Dose: 5 mg Olanzapine (Olanzapine Odt 10 Mg Tab.Rapdis) 5 mg TRANSLINGU Q6H PRN PRN Reason: Agitation Last Admin: 11/01/24 20:50 Dose: 5 mg Polyethylene Glycol (Polyethylene Glycol 3350 17 Gm Powd.Pack) 17 gm PO DAILY PRN PRN Reason: constipation Pravastatin Sodium (Pravastatin Sodium 40 Mg Tablet) 40 mg PO BEDTIME [facility] Last Admin: 11/10/24 20:37 Dose: 40 mg Senna/Docusate Sodium (Sennosides/Docusate Sodium Tablet) 1 tab PO BID [facility] Last Admin: 11/11/24 09:48 Dose: 1 tab Vitamin D (Cholecalciferol (Vitamin D3) 25 Mcg Tablet) 50 mcg PO DAILY [facility] Last Admin: 11/11/24 09:48 Dose: 50 mcg Allergies Allergies Allergy/AdvReac Type Severity Reaction Status Date / Time meperidine [From Demerol] AdvReac Intermediate Rash Verified 08/23/24 19:34 morphine AdvReac Intermediate Rash Verified 08/23/24 19:35 Sulfa (Sulfonamide AdvReac Intermediate Rash Verified 08/23/24 19:36 Antibiotics) Assessment & Plan Assessment & Plan (1) Schizoaffective disorder: Status: Acute Code(s): F25.9 - Schizoaffective disorder, unspecified Plan Ms. Thomas is a 69 year-old woman with hx of Bipolar Disorder, she currently presents with several symptoms suggestive of negative symptoms seem usually in schizoaffective disorder including constricted affect, abulia (some acknowledgment that she needed to initiate certain activities like going to dentist but still not doing so for unclear reasons). No overt paranoid delusions, her delayed response may be signs of thought blocking and underlying psychosis. She is in agreement to receive treatment and complete work up to also assess her memory and cognition. 11/07 continue tx. awaiting placement. 11/08: stable presentation, awaiting placement. 11/09: no change, awaiting placement. 11/10: no change in presentation. stable. continue current mgmt. 11/11: stable. continue current mgmt. Reason for continued inpatient stay Substantial Risk for: inability to function Time Spent With Patient Time: Total time managing care of this patient today ____ minutes.
[2024-11-11 20:00] VITALS: BP 98/57; PULSE 81; RESP 16; TEMP 36.6; O2SAT 97
--- NOTE | 2024-11-12 07:42 | HO.PSYCHPN ---
Subjective Subjective Date of Service: 11/12/24 Reason For Visit: bipolar 1 disorder current or most recent epi Subjective Notes: Conditional Voluntary Interim History: met with patient. Discussed with Nursing. Is awaiting long-term care. A constipated today and had a bowel movement yesterday. Reports that she is feeling okay from a mood perspective. Sleep is good. Feeling safe. No med concerns. Medication Compliance: Yes Side effects from medications: No Attending Groups: Intermittent Review of Systems Acute medical concerns: No Review of Systems Review of Systems Unremarkable Mental Status Exam Mental Status Exam Narrative: Appearance: adequately dressed and groomed Psychomotor: some retardation Speech: mostly clear, less latency, minimally spontaneous TP: [place] TC: no questions or complaints Mood: good Affect: Flat SI: none expressed HI: none expressed VH/AH: none evidenced Delusions: no overt delusional content noted or reported Insight/judgment: impaired . Diagnostics Vital Signs (24Hr): Vital Signs - 24 hr 11/11/24 08:50 11/11/24 20:00 Temperature 97.6 F 98 F Pulse Rate 82 81 Respiratory Rate 16 16 Blood Pressure 115/59 L 98/57 L Pulse Oximetry 96 97 Oxygen Delivery Method Room Air Room Air BMI result Body Mass Index 22.6 Labs 08/27/24 10:00 08/29/24 17:32 Imaging Radiology Impressions: ITS Impressions Head CT 08/25/24 11:33 IMPRESSION: No acute intracranial abnormality. Electronically signed by: Cj Colunga MD 08/25/2024 12:12 PM EST RP KUB X-Ray 10/28/24 09:50 IMPRESSION: Abundant stool without intestinal obstruction pattern. Electronically signed by: Audie Uribe MD 10/28/2024 10:02 AM EDT RP Medications Medications Current Medications Acetaminophen (Acetaminophen 325 Mg Tablet) 650 mg PO Q6H PRN PRN Reason: Headache/Pain, Scale 1-10 Last Admin: 10/11/24 20:15 Dose: 650 mg Al Hydroxide/Mg Hydroxide (Magnesium Hydrox/Alum Hydrox 30 Ml Oral.Susp) 30 ml PO Q6H PRN PRN Reason: Heartburn/Nausea Aripiprazole (Aripiprazole 30 Mg Tablet) 30 mg PO DAILY [facility] Last Admin: 11/11/24 09:48 Dose: 30 mg Benzocaine (Throat Lozenge, Medicated Lozenge) 1 lozenge MUCOUS MEM Q1H PRN PRN Reason: Sore Throat Last Admin: 09/01/24 06:09 Dose: 1 lozenge Guaifenesin/Dextromethorphan (Guaifenesin Dm 200/20/10 Ml 10 Ml Syrup) 10 ml PO Q4H PRN PRN Reason: Cough Last Admin: 08/30/24 05:47 Dose: 10 ml Levothyroxine Sodium (Levothyroxine Sodium 75 Mcg Tablet) 75 mcg PO DAILY@0630 [facility] Last Admin: 11/12/24 05:34 Dose: 75 mcg Lidocaine/Diphenhydr/Alum/Mg/Simeth (Mag&Al/Sim/Diphenhyd/Lidocaine 10 Ml Oral.Susp) 10 ml PO Q6H PRN; Protocol PRN Reason: Painful Gums Last Admin: 08/26/24 13:38 Dose: 10 ml Magnesium Hydroxide (Milk Of Magnesia 30 Ml Oral.Susp) 30 ml PO DAILY PRN PRN Reason: Constipation Memantine (Memantine Hcl 5 Mg Tablet) 5 mg PO DAILY [facility] Last Admin: 11/11/24 09:48 Dose: 5 mg Olanzapine (Olanzapine Odt 10 Mg Tab.Rapdis) 5 mg TRANSLINGU Q6H PRN PRN Reason: Agitation Last Admin: 11/01/24 20:50 Dose: 5 mg Polyethylene Glycol (Polyethylene Glycol 3350 17 Gm Powd.Pack) 17 gm PO DAILY PRN PRN Reason: constipation Pravastatin Sodium (Pravastatin Sodium 40 Mg Tablet) 40 mg PO BEDTIME [facility] Last Admin: 11/11/24 20:53 Dose: 40 mg Senna/Docusate Sodium (Sennosides/Docusate Sodium Tablet) 1 tab PO BID [facility] Last Admin: 11/11/24 20:53 Dose: 1 tab Vitamin D (Cholecalciferol (Vitamin D3) 25 Mcg Tablet) 50 mcg PO DAILY [facility] Last Admin: 11/11/24 09:48 Dose: 50 mcg Allergies Allergies Allergy/AdvReac Type Severity Reaction Status Date / Time meperidine [From Demerol] AdvReac Intermediate Rash Verified 08/23/24 19:34 morphine AdvReac Intermediate Rash Verified 08/23/24 19:35 Sulfa (Sulfonamide AdvReac Intermediate Rash Verified 08/23/24 19:36 Antibiotics) Assessment & Plan Assessment & Plan (1) Schizoaffective disorder: Status: Acute Code(s): F25.9 - Schizoaffective disorder, unspecified Plan Ms. Thomas is a 69 year-old woman with hx of Bipolar Disorder, she currently presents with several symptoms suggestive of negative symptoms seem usually in schizoaffective disorder including constricted affect, abulia (some acknowledgment that she needed to initiate certain activities like going to dentist but still not doing so for unclear reasons). No overt paranoid delusions, her delayed response may be signs of thought blocking and underlying psychosis. She is in agreement to receive treatment and complete work up to also assess her memory and cognition. 11/07 continue tx. awaiting placement. 11/08: stable presentation, awaiting placement. 11/09: no change, awaiting placement. 11/10: no change in presentation. stable. continue current mgmt. 11/11: stable. continue current mgmt. 11/12/2024: No changes to primary team's treatment plan Reason for continued inpatient stay Substantial Risk for: rapid decompensation Time Spent With Patient Time: Total time managing care of this patient today ____ minutes.
[2024-11-12 08:06] VITALS: BP 104/63; PULSE 79; RESP 18; TEMP 36.7; O2SAT 96
[2024-11-12] MEDS: ARIPiprazole 30 MG TABLET PO (08:12)
[2024-11-12 20:00] VITALS: BP 120/60; PULSE 69; RESP 16; TEMP 36.9; O2SAT 95
[2024-11-13 08:00] VITALS: BP 108/58; PULSE 86; RESP 16; TEMP 36.1; O2SAT 98
[2024-11-13] MEDS: ARIPiprazole 30 MG TABLET PO (08:46)
--- NOTE | 2024-11-13 17:11 | HO.PSYCHPN ---
Subjective Subjective Date of Service: 11/13/24 Reason For Visit: bipolar 1 disorder current or most recent epi Subjective Notes: [place] Order and Conditional Voluntary Medical Problems Affecting Mental Status: No Medication Compliance: Yes Side effects from medications: No Attending Groups: Intermittent Review of Systems Acute medical concerns: No Medical Review of Systems: unchanged Mental Status Exam Mental Status Exam Narrative: Isolative to her room except for meals. Denies physical complaints. Eating and sleeping OK. No behavior management issues. Patient Appearance: Well Grooomed Patient Orientation: Person, Place, Time and Situation Level of Consciousness: Awake Patient Behavior: Isolative Mood Description: Withdrawn Affect Description: Apathetic Patient Cognition Impaired: No Ability to Follow Directions: Fair Speech Pattern: Clear and Delayed Memory Description: Intact Hallucinations: None Delusions: Not Present Thought Process: Linear Thought Content: positive for Intact and positive for Poverty of Content Judgement: Fair Diagnostics Vital Signs (24Hr): Vital Signs - 24 hr 11/12/24 20:00 11/13/24 08:00 Temperature 98.4 F 96.9 F Pulse Rate 69 86 Respiratory Rate 16 16 Blood Pressure 120/60 108/58 L Pulse Oximetry 95 98 Oxygen Delivery Method Room Air Room Air BMI result Body Mass Index 22.6 Labs 08/27/24 10:00 08/29/24 17:32 Imaging Radiology Impressions: ITS Impressions Head CT 08/25/24 11:33 IMPRESSION: No acute intracranial abnormality. Electronically signed by: Cj Colunga MD 08/25/2024 12:12 PM EST RP KUB X-Ray 10/28/24 09:50 IMPRESSION: Abundant stool without intestinal obstruction pattern. Electronically signed by: Audie Uribe MD 10/28/2024 10:02 AM EDT RP Medications Medications Current Medications Acetaminophen (Acetaminophen 325 Mg Tablet) 650 mg PO Q6H PRN PRN Reason: Headache/Pain, Scale 1-10 Last Admin: 10/11/24 20:15 Dose: 650 mg Al Hydroxide/Mg Hydroxide (Magnesium Hydrox/Alum Hydrox 30 Ml Oral.Susp) 30 ml PO Q6H PRN PRN Reason: Heartburn/Nausea Aripiprazole (Aripiprazole 30 Mg Tablet) 30 mg PO DAILY [facility] Last Admin: 11/13/24 08:46 Dose: 30 mg Benzocaine (Throat Lozenge, Medicated Lozenge) 1 lozenge MUCOUS MEM Q1H PRN PRN Reason: Sore Throat Last Admin: 09/01/24 06:09 Dose: 1 lozenge Guaifenesin/Dextromethorphan (Guaifenesin Dm 200/20/10 Ml 10 Ml Syrup) 10 ml PO Q4H PRN PRN Reason: Cough Last Admin: 08/30/24 05:47 Dose: 10 ml Levothyroxine Sodium (Levothyroxine Sodium 75 Mcg Tablet) 75 mcg PO DAILY@0630 [facility] Last Admin: 11/13/24 05:42 Dose: 75 mcg Lidocaine/Diphenhydr/Alum/Mg/Simeth (Mag&Al/Sim/Diphenhyd/Lidocaine 10 Ml Oral.Susp) 10 ml PO Q6H PRN; Protocol PRN Reason: Painful Gums Last Admin: 08/26/24 13:38 Dose: 10 ml Magnesium Hydroxide (Milk Of Magnesia 30 Ml Oral.Susp) 30 ml PO DAILY PRN PRN Reason: Constipation Memantine (Memantine Hcl 5 Mg Tablet) 5 mg PO DAILY [facility] Last Admin: 11/13/24 08:46 Dose: 5 mg Olanzapine (Olanzapine Odt 10 Mg Tab.Rapdis) 5 mg TRANSLINGU Q6H PRN PRN Reason: Agitation Last Admin: 11/01/24 20:50 Dose: 5 mg Polyethylene Glycol (Polyethylene Glycol 3350 17 Gm Powd.Pack) 17 gm PO DAILY PRN PRN Reason: constipation Pravastatin Sodium (Pravastatin Sodium 40 Mg Tablet) 40 mg PO BEDTIME [facility] Last Admin: 11/12/24 20:41 Dose: 40 mg Senna/Docusate Sodium (Sennosides/Docusate Sodium Tablet) 1 tab PO BID [facility] Last Admin: 11/13/24 08:46 Dose: 1 tab Vitamin D (Cholecalciferol (Vitamin D3) 25 Mcg Tablet) 50 mcg PO DAILY [facility] Last Admin: 11/13/24 08:46 Dose: 50 mcg Allergies Allergies Allergy/AdvReac Type Severity Reaction Status Date / Time meperidine [From Demerol] AdvReac Intermediate Rash Verified 08/23/24 19:34 morphine AdvReac Intermediate Rash Verified 08/23/24 19:35 Sulfa (Sulfonamide AdvReac Intermediate Rash Verified 08/23/24 19:36 Antibiotics) Assessment & Plan Assessment & Plan (1) Schizoaffective disorder: Status: Acute Code(s): F25.9 - Schizoaffective disorder, unspecified Plan Ms. Thomas is a 69 year-old woman with hx of Bipolar Disorder, she currently presents with several symptoms suggestive of negative symptoms seem usually in schizoaffective disorder including constricted affect, abulia (some acknowledgment that she needed to initiate certain activities like going to dentist but still not doing so for unclear reasons). No overt paranoid delusions, her delayed response may be signs of thought blocking and underlying psychosis. She is in agreement to receive treatment and complete work up to also assess her memory and cognition. 11/07 continue tx. awaiting placement. 11/08: stable presentation, awaiting placement. 11/09: no change, awaiting placement. 11/10: no change in presentation. stable. continue current mgmt. 11/11: stable. continue current mgmt. 11/12/2024: No changes to primary team's treatment plan 11/13/24: no changes Reason for continued inpatient stay Substantial Risk for: inability to function Time Spent With Patient Time: Total time managing care of this patient today ____ minutes.
[2024-11-13 20:00] VITALS: BP 114/55; PULSE 73; RESP 18; TEMP 36.3; O2SAT 97
[2024-11-14 07:49] VITALS: BP 128/58; PULSE 61; RESP 18; TEMP 36.8; O2SAT 97
--- NOTE | 2024-11-14 08:33 | P.PNPSI_ITS ---
Subjective Subjective Date of Service: 11/14/24 Reason For Visit: bipolar 1 disorder current or most recent epi Subjective Notes: Conditional Voluntary Healthcare Proxy: Yes Interim History: Pt sitting in common area, minimal blinking, eyes protruding slightly. She denies any concerns physical or emotional. does not engage in much meaningful conversation. VS stable. Review of Systems Review of Systems Unremarkable Yes all other systems are reviewed and are negative Diagnostics Vital Signs (24Hr): Vital Signs - 24 hr 11/13/24 20:00 11/14/24 07:49 Temperature 97.4 F 98.2 F Pulse Rate 73 61 Respiratory Rate 18 18 Blood Pressure 114/55 L 128/58 L Pulse Oximetry 97 97 Oxygen Delivery Method Room Air Room Air BMI result Body Mass Index 22.6 Labs 11/15/24 11:02 11/15/24 11:02 Imaging Radiology Impressions: ITS Impressions Head CT 08/25/24 11:33 IMPRESSION: No acute intracranial abnormality. Electronically signed by: Cj Colunga MD 08/25/2024 12:12 PM EST RP KUB X-Ray 10/28/24 09:50 IMPRESSION: Abundant stool without intestinal obstruction pattern. Electronically signed by: Audie Uribe MD 10/28/2024 10:02 AM EDT RP Medications Medications Current Medications Acetaminophen (Acetaminophen 325 Mg Tablet) 650 mg PO Q6H PRN PRN Reason: Headache/Pain, Scale 1-10 Last Admin: 10/11/24 20:15 Dose: 650 mg Al Hydroxide/Mg Hydroxide (Magnesium Hydrox/Alum Hydrox 30 Ml Oral.Susp) 30 ml PO Q6H PRN PRN Reason: Heartburn/Nausea Aripiprazole (Aripiprazole 30 Mg Tablet) 30 mg PO DAILY [facility] Last Admin: 11/13/24 08:46 Dose: 30 mg Benzocaine (Throat Lozenge, Medicated Lozenge) 1 lozenge MUCOUS MEM Q1H PRN PRN Reason: Sore Throat Last Admin: 09/01/24 06:09 Dose: 1 lozenge Guaifenesin/Dextromethorphan (Guaifenesin Dm 200/20/10 Ml 10 Ml Syrup) 10 ml PO Q4H PRN PRN Reason: Cough Last Admin: 08/30/24 05:47 Dose: 10 ml Levothyroxine Sodium (Levothyroxine Sodium 75 Mcg Tablet) 75 mcg PO DAILY@0630 [facility] Last Admin: 11/14/24 05:49 Dose: 75 mcg Lidocaine/Diphenhydr/Alum/Mg/Simeth (Mag&Al/Sim/Diphenhyd/Lidocaine 10 Ml Oral.Susp) 10 ml PO Q6H PRN; Protocol PRN Reason: Painful Gums Last Admin: 08/26/24 13:38 Dose: 10 ml Magnesium Hydroxide (Milk Of Magnesia 30 Ml Oral.Susp) 30 ml PO DAILY PRN PRN Reason: Constipation Memantine (Memantine Hcl 5 Mg Tablet) 5 mg PO DAILY [facility] Last Admin: 11/13/24 08:46 Dose: 5 mg Olanzapine (Olanzapine Odt 10 Mg Tab.Rapdis) 5 mg TRANSLINGU Q6H PRN PRN Reason: Agitation Last Admin: 11/01/24 20:50 Dose: 5 mg Polyethylene Glycol (Polyethylene Glycol 3350 17 Gm Powd.Pack) 17 gm PO DAILY PRN PRN Reason: constipation Pravastatin Sodium (Pravastatin Sodium 40 Mg Tablet) 40 mg PO BEDTIME [facility] Last Admin: 11/13/24 21:26 Dose: 40 mg Senna/Docusate Sodium (Sennosides/Docusate Sodium Tablet) 1 tab PO BID [facility] Last Admin: 11/13/24 21:27 Dose: 1 tab Vitamin D (Cholecalciferol (Vitamin D3) 25 Mcg Tablet) 50 mcg PO DAILY [facility] Last Admin: 11/13/24 08:46 Dose: 50 mcg Allergies Allergies Allergy/AdvReac Type Severity Reaction Status Date / Time meperidine [From Demerol] AdvReac Intermediate Rash Verified 08/23/24 19:34 morphine AdvReac Intermediate Rash Verified 08/23/24 19:35 Sulfa (Sulfonamide AdvReac Intermediate Rash Verified 08/23/24 19:36 Antibiotics) Assessment & Plan Assessment & Plan (1) Schizoaffective disorder: Status: Acute Code(s): F25.9 - Schizoaffective disorder, unspecified Plan Ms. Thomas is a 69 year-old woman with hx of Bipolar Disorder, she currently presents with several symptoms suggestive of negative symptoms seem usually in schizoaffective disorder including constricted affect, abulia (some acknowledgment that she needed to initiate certain activities like going to dentist but still not doing so for unclear reasons). No overt paranoid delusions, her delayed response may be signs of thought blocking and underlying psychosis. She is in agreement to receive treatment and complete work up to also assess her memory and cognition. 11/07 continue tx. awaiting placement. 11/08: stable presentation, awaiting placement. 11/09: no change, awaiting placement. 11/10: no change in presentation. stable. continue current mgmt. 11/11: stable. continue current mgmt. 11/12/2024: No changes to primary team's treatment plan 11/13/24: no changes 11/14 continue tx. Reason for continued inpatient stay Substantial Risk for: inability to function Time Spent With Patient Time: Total time managing care of this patient today ____ minutes.
[2024-11-14] MEDS: ARIPiprazole 30 MG TABLET PO (08:36)
[2024-11-14 20:00] VITALS: BP 141/67; PULSE 85; RESP 16; TEMP 36.9; O2SAT 96
--- NOTE | 2024-11-15 09:22 | HO.PM.IMCN ---
History of Present Illness Data of Consult Service Date: 11/15/24 Primary Care Provider: Unknown Physician HPI Reason for consult: Medical evaluation 69-year-old female with a PMH significant for?HLD, hypothyroidism, unspecified dementia, and bipolar with psychotic features who is admitted to [facility] for worsening forgetfulness and inability to take care of herself, she was found by [facility] covered in feces and vomit and with her house in disarray. She has no acute medical concerns. She reports eating and sleeping well. She is awaiting long-term placement. Discussed with staff no concerns at this time. Denies fever, chills, N/V/D, or abdominal pain. No SOB or difficulty breathing. Denies chest pain/pressure, or palpitations. No recent labs for review. No concerns from staff. She had a recent KUB with abundant stool with no intestinal obstruction pattern. Her abdomen is benign on exam. FOR[facility]LY [facility], [facility] Medical History (Updated 11/15/24 @ 10:37 by Margaret Mallory DNP) Hypothyroid HTN (hypertension) Social History Household Members: None Housing: Apartment Do you presently have visiting nurse or other home services: No Patient Tobacco Use Status: Never used Tobacco e-Cigarette/Vaping Use: Never Used Use of substances other than those prescribed or required for medical reasons: Yes Currently Displaying Signs/Symptoms of Drug Intoxication Withdrawal: No Have you been hit, kicked, punched, or otherwise hurt by someone within the past year? If so, by whom?: No Do you feel safe in your current relationship?: No Is there a partner from a previous relationship who is making you feel unsafe now?: No Advance Directives: No Advance Directives Information Provided: No Do you have thoughts of harming others: None Do you have a plan to hurt others: No Plan Recently lost weight without trying: No Nutrition Risks: No Nutritional Risk Patient : No : No service: No Sexual orientation: Straight/Heterosexual Meds Allergies Allergy/AdvReac Type Severity Reaction Status Date / Time meperidine [From Demerol] AdvReac Intermediate Rash Verified 08/23/24 19:34 morphine AdvReac Intermediate Rash Verified 08/23/24 19:35 Sulfa (Sulfonamide AdvReac Intermediate Rash Verified 08/23/24 19:36 Antibiotics) Active Medications: Current Medications Acetaminophen (Acetaminophen 325 Mg Tablet) 650 mg PO Q6H PRN PRN Reason: Headache/Pain, Scale 1-10 Last Admin: 10/11/24 20:15 Dose: 650 mg Al Hydroxide/Mg Hydroxide (Magnesium Hydrox/Alum Hydrox 30 Ml Oral.Susp) 30 ml PO Q6H PRN PRN Reason: Heartburn/Nausea Aripiprazole (Aripiprazole 30 Mg Tablet) 30 mg PO DAILY [facility] Last Admin: 11/14/24 08:36 Dose: 30 mg Benzocaine (Throat Lozenge, Medicated Lozenge) 1 lozenge MUCOUS MEM Q1H PRN PRN Reason: Sore Throat Last Admin: 09/01/24 06:09 Dose: 1 lozenge Guaifenesin/Dextromethorphan (Guaifenesin Dm 200/20/10 Ml 10 Ml Syrup) 10 ml PO Q4H PRN PRN Reason: Cough Last Admin: 08/30/24 05:47 Dose: 10 ml Levothyroxine Sodium (Levothyroxine Sodium 75 Mcg Tablet) 75 mcg PO DAILY@0630 [facility] Last Admin: 11/15/24 05:33 Dose: 75 mcg Lidocaine/Diphenhydr/Alum/Mg/Simeth (Mag&Al/Sim/Diphenhyd/Lidocaine 10 Ml Oral.Susp) 10 ml PO Q6H PRN; Protocol PRN Reason: Painful Gums Last Admin: 08/26/24 13:38 Dose: 10 ml Magnesium Hydroxide (Milk Of Magnesia 30 Ml Oral.Susp) 30 ml PO DAILY PRN PRN Reason: Constipation Memantine (Memantine Hcl 5 Mg Tablet) 5 mg PO DAILY [facility] Last Admin: 11/14/24 08:36 Dose: 5 mg Olanzapine (Olanzapine Odt 10 Mg Tab.Rapdis) 5 mg TRANSLINGU Q6H PRN PRN Reason: Agitation Last Admin: 11/01/24 20:50 Dose: 5 mg Polyethylene Glycol (Polyethylene Glycol 3350 17 Gm Powd.Pack) 17 gm PO DAILY PRN PRN Reason: constipation Pravastatin Sodium (Pravastatin Sodium 40 Mg Tablet) 40 mg PO BEDTIME [facility] Last Admin: 11/14/24 20:43 Dose: 40 mg Senna/Docusate Sodium (Sennosides/Docusate Sodium Tablet) 1 tab PO BID [facility] Last Admin: 11/14/24 20:43 Dose: 1 tab Vitamin D (Cholecalciferol (Vitamin D3) 25 Mcg Tablet) 50 mcg PO DAILY [facility] Last Admin: 11/14/24 08:36 Dose: 50 mcg Home Medications ?Medication ?Instructions ?Recorded ?Confirmed ?Last Taken ?Type aripiprazole 10 mg tablet 10 mg PO DAILY 08/23/24 08/23/24 Unknown History cholecalciferol (vitamin D3) 50 50 mcg PO DAILY 08/23/24 08/23/24 Unknown History mcg (2,000 unit) tablet lamotrigine 25 mg tablet 25 mg PO DAILY 08/23/24 08/23/24 Unknown History levothyroxine 75 mcg tablet 75 mcg PO DAILY@0630 08/23/24 08/23/24 Unknown History olanzapine 10 mg disintegrating 10 mg PO DAILY PRN Agitation 08/23/24 08/23/24 Unknown History tablet pravastatin 40 mg tablet 40 mg PO BEDTIME 08/23/24 08/23/24 Unknown History Physical Exam Vital Signs and Narrative: Vital Signs: Last Vital Signs Temp 98.4 F 11/14/24 20:00 Pulse 85 11/14/24 20:00 Resp 16 11/14/24 20:00 BP 141/67 H 11/14/24 20:00 Pulse Ox 96 11/14/24 20:00 O2 Del Method Room Air 11/14/24 20:00 BMI result Body Mass Index 22.6 CONST: Alert, oriented times 2 and cooperative, in NAD. HEENT: Normocephalic, atraumatic, MMM, Eyes clear, Neck supple Poor dentition. RESP: Lungs clear, RRR even and regular HEART:,RRR, S1, S2. no edema GI:Abdomen Soft NT, ND. + BS times four :Deferred SKIN: Warm dry and intact, no visible lesions or rashes NEURO:CN II-XII Intact bilaterally, Sensation intact. Speech clear PSYCH: Normal affect Results Labs 08/27/24 10:00 08/29/24 17:32 Assessment and Plan (1) HLD (hyperlipidemia): Status: Acute Plan 69-year-old female with a past medical history of hyperlipidemia, hypothyroidism, and bipolar disorder is admitted here on the [facility] psych unit for treatment of bipolar disorder. She is currently awaiting placement in a long-term care facility, she has been stable. Bipolar with psychotic features Treatment per Psychiatric team. Gingivitis Encourage oral care, including brushing twice a day and flossing at least once a day Magic mouthwash prn Follow up outpatient with dentist HEDY Continue statin We will update lab work to see if there is improvement in her cholesterol levels Hypothyroidism Continue levothyroxine We will update lab work Constipation Recently had a KUB with abundant stool present, no obstruction, We will add Colace daily. Senna and other bowel meds available as needed.
[2024-11-15 09:24] VITALS: BP 130/58; PULSE 91; RESP 18; TEMP 36.4; O2SAT 96
[2024-11-15] MEDS: ARIPiprazole 30 MG TABLET PO (09:26)
[2024-11-15 11:06] LABS: MANUAL DIFF FLAG NO
[2024-11-15 11:09] LABS: Hematocrit 38.1 % (37.0-47.0); Hemoglobin 12.8 g/dl (12.0-16.0); Imm Gran Abs Auto 0.07 X10*3/uL (0.00-0.03); Imm Gran Pct Auto 0.9 % (0.0-0.4); Lymphocytes Absolute Auto 2.1 X10*3/uL (1.2-4.9); Mean Corpuscular HGB Conc 33.6 g/dl (31.0-35.0); Mean Corpuscular Hemoglobin 30.8 pg (27.0-33.0); Mean Corpuscular Volume 91.6 fL (80.0-98.0); NRBC Abs Auto 0.000 X10*3/uL (0.0-0.012); NRBC Pct Auto 0.0 /100WBC (0.0-0.2); Platelet Count 292 X10*3/uL (160-400); Red Blood Count 4.16 X10*6/uL (4.20-5.50); White Blood Count 8.1 X10*3/uL (4.8-10.8)
[2024-11-15 11:33] LABS: Anion Gap 13 (12-20); Blood Urea Nitrogen 12 mg/dL (9-16); Calcium 9.5 mg/dL (8.4-10.2); Carbon Dioxide 25 mmol/L (22-29); Chloride 106 mmol/L (96-108); Cholesterol 189 mg/dL (<200); Creatinine Clr Calc Pharmacy 57.4; Estimated Glomerular Filt Rate > 60; HDL Cholesterol 70 mg/dL (>40); Potassium 3.6 mmol/L (3.3-5.1); Sodium 140 mmol/L (135-145); Triglycerides 58 mg/dL (<150)
[2024-11-15 12:27] LABS: Free T4 (Free Thyroxine) 1.38 ng/dL (0.71-1.85)
--- NOTE | 2024-11-15 14:20 | HO.PSYCHPN ---
Subjective Subjective Date of Service: 11/15/24 Reason For Visit: bipolar 1 disorder current or most recent epi Subjective Notes: Conditional Voluntary Healthcare Proxy: Yes Interim History: Pt reports she is doing fine. She denies any concerns. She is taking medications as prescribed. minimal blinking, staring at times. No behavioral concerns. Medication Compliance: Yes Review of Systems Review of Systems Unremarkable Yes all other systems are reviewed and are negative Mental Status Exam Mental Status Exam Patient Appearance: Well Grooomed Patient Orientation: Person, Place, Time and Situation Level of Consciousness: Awake Patient Behavior: Isolative Mood Description: Withdrawn Affect Description: Apathetic Patient Cognition Impaired: No Ability to Follow Directions: Fair Speech Pattern: Clear and Delayed Memory Description: Intact Diagnostics Vital Signs (24Hr): Vital Signs - 24 hr 11/14/24 20:00 11/15/24 09:24 Temperature 98.4 F 97.5 F Pulse Rate 85 91 Respiratory Rate 16 18 Blood Pressure 141/67 H 130/58 L Pulse Oximetry 96 96 Oxygen Delivery Method Room Air Room Air BMI result Body Mass Index 22.6 Labs 11/15/24 11:02 11/15/24 11:02 Labs: Laboratory Results - last 48 hr 11/15/24 11:02 WBC 8.1 RBC 4.16 L Hgb 12.8 Hct 38.1 MCV 91.6 MCH 30.8 MCHC 33.6 RDW 13.3 Plt Count 292 D MPV 9.9 Immature Gran % (Auto) 0.9 H Neut % (Auto) 64.2 Lymph % (Auto) 26.0 [place] % (Auto) 8.3 Eos % (Auto) 0.4 Baso % (Auto) 0.2 Lymph # (Auto) 2.1 [place] # (Auto) 0.7 Eos # (Auto) 0.0 Baso # (Auto) 0.0 Abs Immat Gran (auto) 0.07 H Absolute Neuts (auto) 5.2 Absolute Nucleated RBC 0.000 Nucleated RBC % (auto) 0.0 Sodium 140 Potassium 3.6 Chloride 106 Carbon Dioxide 25 Anion Gap 13 BUN 12 Creatinine 0.64 Estim Creat Clear Calc 57.4 Estimated GFR > 60 Random Glucose 140 H Calcium 9.5 Triglycerides 58 Cholesterol 189 LDL Cholesterol, Calc 108 H HDL Cholesterol 70 TSH 0.12 L Free T4 1.38 Imaging Radiology Impressions: ITS Impressions Head CT 08/25/24 11:33 IMPRESSION: No acute intracranial abnormality. Electronically signed by: Cj Colunga MD 08/25/2024 12:12 PM EST RP KUB X-Ray 10/28/24 09:50 IMPRESSION: Abundant stool without intestinal obstruction pattern. Electronically signed by: Audie Uribe MD 10/28/2024 10:02 AM EDT RP Medications Medications Current Medications Acetaminophen (Acetaminophen 325 Mg Tablet) 650 mg PO Q6H PRN PRN Reason: Headache/Pain, Scale 1-10 Last Admin: 10/11/24 20:15 Dose: 650 mg Al Hydroxide/Mg Hydroxide (Magnesium Hydrox/Alum Hydrox 30 Ml Oral.Susp) 30 ml PO Q6H PRN PRN Reason: Heartburn/Nausea Aripiprazole (Aripiprazole 30 Mg Tablet) 30 mg PO DAILY [facility] Last Admin: 11/15/24 09:26 Dose: 30 mg Benzocaine (Throat Lozenge, Medicated Lozenge) 1 lozenge MUCOUS MEM Q1H PRN PRN Reason: Sore Throat Last Admin: 09/01/24 06:09 Dose: 1 lozenge Guaifenesin/Dextromethorphan (Guaifenesin Dm 200/20/10 Ml 10 Ml Syrup) 10 ml PO Q4H PRN PRN Reason: Cough Last Admin: 08/30/24 05:47 Dose: 10 ml Levothyroxine Sodium (Levothyroxine Sodium 75 Mcg Tablet) 75 mcg PO DAILY@0630 [facility] Last Admin: 11/15/24 05:33 Dose: 75 mcg Lidocaine/Diphenhydr/Alum/Mg/Simeth (Mag&Al/Sim/Diphenhyd/Lidocaine 10 Ml Oral.Susp) 10 ml PO Q6H PRN; Protocol PRN Reason: Painful Gums Last Admin: 08/26/24 13:38 Dose: 10 ml Magnesium Hydroxide (Milk Of Magnesia 30 Ml Oral.Susp) 30 ml PO DAILY PRN PRN Reason: Constipation Memantine (Memantine Hcl 5 Mg Tablet) 5 mg PO DAILY [facility] Last Admin: 11/15/24 09:26 Dose: 5 mg Olanzapine (Olanzapine Odt 10 Mg Tab.Rapdis) 5 mg TRANSLINGU Q6H PRN PRN Reason: Agitation Last Admin: 05/06/25 20:50 Dose: 5 mg Polyethylene Glycol (Polyethylene Glycol 3350 17 Gm Powd.Pack) 17 gm PO DAILY PRN PRN Reason: constipation Pravastatin Sodium (Pravastatin Sodium 40 Mg Tablet) 40 mg PO BEDTIME [facility] Last Admin: 11/14/24 20:43 Dose: 40 mg Senna/Docusate Sodium (Sennosides/Docusate Sodium Tablet) 1 tab PO BID [facility] Last Admin: 11/15/24 09:26 Dose: 1 tab Vitamin D (Cholecalciferol (Vitamin D3) 25 Mcg Tablet) 50 mcg PO DAILY [facility] Last Admin: 11/15/24 09:25 Dose: 50 mcg Allergies Allergies Allergy/AdvReac Type Severity Reaction Status Date / Time meperidine [From Demerol] AdvReac Intermediate Rash Verified 08/23/24 19:34 morphine AdvReac Intermediate Rash Verified 08/23/24 19:35 Sulfa (Sulfonamide AdvReac Intermediate Rash Verified 08/23/24 19:36 Antibiotics) Assessment & Plan Assessment & Plan (1) Schizoaffective disorder: Status: Acute Code(s): F25.9 - Schizoaffective disorder, unspecified Plan Ms. Thomas is a 69 year-old woman with hx of Bipolar Disorder, she currently presents with several symptoms suggestive of negative symptoms seem usually in schizoaffective disorder including constricted affect, abulia (some acknowledgment that she needed to initiate certain activities like going to dentist but still not doing so for unclear reasons). No overt paranoid delusions, her delayed response may be signs of thought blocking and underlying psychosis. She is in agreement to receive treatment and complete work up to also assess her memory and cognition. 11/07 continue tx. awaiting placement. 11/08: stable presentation, awaiting placement. 11/09: no change, awaiting placement. 11/10: no change in presentation. stable. continue current mgmt. 11/11: stable. continue current mgmt. 11/12/2024: No changes to primary team's treatment plan 11/13/24: no changes 11/14 continue tx. 11/15 continue tx. Reason for continued inpatient stay Substantial Risk for: inability to function Time Spent With Patient Time: Total time managing care of this patient today ____ minutes.
[2024-11-15 20:00] VITALS: BP 121/59; PULSE 80; RESP 16; TEMP 36.9; O2SAT 97
[2024-11-16 08:00] VITALS: BP 102/62; PULSE 94; RESP 16; TEMP 36.7; O2SAT 96
[2024-11-16] MEDS: ARIPiprazole 30 MG TABLET PO (09:48)
--- NOTE | 2024-11-16 13:25 | P.PNPSI_ITS ---
Subjective Subjective Date of Service: 11/16/24 Reason For Visit: bipolar 1 disorder current or most recent epi Interim History: no change in presentation. lying in bed awake and alert, rigid, after lunch. mood good, no complaints. per staff, no notable events or behaviors. Mental Status Exam Mental Status Exam Narrative: Appearance: adequately dressed and groomed Psychomotor: some retardation Speech: mostly clear, less latency, minimally spontaneous TP: [place] TC: no questions or complaints Mood: good Affect: Flat SI: none expressed HI: none expressed VH/AH: none evidenced Delusions: no overt delusional content noted or reported Insight/judgment: impaired . Diagnostics Vital Signs (24Hr): Vital Signs - 24 hr 11/15/24 20:00 11/16/24 08:00 Temperature 98.4 F 98.0 F Pulse Rate 80 94 Respiratory Rate 16 16 Blood Pressure 121/59 L 102/62 Pulse Oximetry 97 96 Oxygen Delivery Method Room Air Room Air BMI result Body Mass Index 22.6 Labs 11/15/24 11:02 11/15/24 11:02 Labs: Laboratory Results - last 48 hr 11/15/24 11:02 WBC 8.1 RBC 4.16 L Hgb 12.8 Hct 38.1 MCV 91.6 MCH 30.8 MCHC 33.6 RDW 13.3 Plt Count 292 D MPV 9.9 Immature Gran % (Auto) 0.9 H Neut % (Auto) 64.2 Lymph % (Auto) 26.0 [place] % (Auto) 8.3 Eos % (Auto) 0.4 Baso % (Auto) 0.2 Lymph # (Auto) 2.1 [place] # (Auto) 0.7 Eos # (Auto) 0.0 Baso # (Auto) 0.0 Abs Immat Gran (auto) 0.07 H Absolute Neuts (auto) 5.2 Absolute Nucleated RBC 0.000 Nucleated RBC % (auto) 0.0 Sodium 140 Potassium 3.6 Chloride 106 Carbon Dioxide 25 Anion Gap 13 BUN 12 Creatinine 0.64 Estim Creat Clear Calc 57.4 Estimated GFR > 60 Random Glucose 140 H Calcium 9.5 Triglycerides 58 Cholesterol 189 LDL Cholesterol, Calc 108 H HDL Cholesterol 70 TSH 0.12 L Free T4 1.38 Imaging Radiology Impressions: ITS Impressions Head CT 08/25/24 11:33 IMPRESSION: No acute intracranial abnormality. Electronically signed by: Cj Colunga MD 08/25/2024 12:12 PM EST RP KUB X-Ray 10/28/24 09:50 IMPRESSION: Abundant stool without intestinal obstruction pattern. Electronically signed by: Audie Uribe MD 10/28/2024 10:02 AM EDT RP Medications Medications Current Medications Acetaminophen (Acetaminophen 325 Mg Tablet) 650 mg PO Q6H PRN PRN Reason: Headache/Pain, Scale 1-10 Last Admin: 10/11/24 20:15 Dose: 650 mg Al Hydroxide/Mg Hydroxide (Magnesium Hydrox/Alum Hydrox 30 Ml Oral.Susp) 30 ml PO Q6H PRN PRN Reason: Heartburn/Nausea Aripiprazole (Aripiprazole 30 Mg Tablet) 30 mg PO DAILY [facility] Last Admin: 11/16/24 09:48 Dose: 30 mg Benzocaine (Throat Lozenge, Medicated Lozenge) 1 lozenge MUCOUS MEM Q1H PRN PRN Reason: Sore Throat Last Admin: 09/01/24 06:09 Dose: 1 lozenge Guaifenesin/Dextromethorphan (Guaifenesin Dm 200/20/10 Ml 10 Ml Syrup) 10 ml PO Q4H PRN PRN Reason: Cough Last Admin: 08/30/24 05:47 Dose: 10 ml Levothyroxine Sodium (Levothyroxine Sodium 75 Mcg Tablet) 75 mcg PO DAILY@0630 [facility] Last Admin: 11/16/24 05:30 Dose: 75 mcg Lidocaine/Diphenhydr/Alum/Mg/Simeth (Mag&Al/Sim/Diphenhyd/Lidocaine 10 Ml Oral.Susp) 10 ml PO Q6H PRN; Protocol PRN Reason: Painful Gums Last Admin: 08/26/24 13:38 Dose: 10 ml Magnesium Hydroxide (Milk Of Magnesia 30 Ml Oral.Susp) 30 ml PO DAILY PRN PRN Reason: Constipation Memantine (Memantine Hcl 5 Mg Tablet) 5 mg PO DAILY [facility] Last Admin: 11/16/24 09:48 Dose: 5 mg Olanzapine (Olanzapine Odt 10 Mg Tab.Rapdis) 5 mg TRANSLINGU Q6H PRN PRN Reason: Agitation Last Admin: 11/01/24 20:50 Dose: 5 mg Polyethylene Glycol (Polyethylene Glycol 3350 17 Gm Powd.Pack) 17 gm PO DAILY PRN PRN Reason: constipation Pravastatin Sodium (Pravastatin Sodium 40 Mg Tablet) 40 mg PO BEDTIME [facility] Last Admin: 11/15/24 20:07 Dose: 40 mg Senna/Docusate Sodium (Sennosides/Docusate Sodium Tablet) 1 tab PO BID [facility] Last Admin: 11/16/24 09:48 Dose: 1 tab Vitamin D (Cholecalciferol (Vitamin D3) 25 Mcg Tablet) 50 mcg PO DAILY [facility] Last Admin: 11/16/24 09:48 Dose: 50 mcg Allergies Allergies Allergy/AdvReac Type Severity Reaction Status Date / Time meperidine [From Demerol] AdvReac Intermediate Rash Verified 08/23/24 19:34 morphine AdvReac Intermediate Rash Verified 08/23/24 19:35 Sulfa (Sulfonamide AdvReac Intermediate Rash Verified 08/23/24 19:36 Antibiotics) Assessment & Plan Assessment & Plan (1) Schizoaffective disorder: Status: Acute Code(s): F25.9 - Schizoaffective disorder, unspecified Plan Ms. Thomas is a 69 year-old woman with hx of Bipolar Disorder, she currently presents with several symptoms suggestive of negative symptoms seem usually in schizoaffective disorder including constricted affect, abulia (some acknowledgment that she needed to initiate certain activities like going to dentist but still not doing so for unclear reasons). No overt paranoid delusions, her delayed response may be signs of thought blocking and underlying psychosis. She is in agreement to receive treatment and complete work up to also assess her memory and cognition. 11/07 continue tx. awaiting placement. 11/08: stable presentation, awaiting placement. 11/09: no change, awaiting placement. 11/10: no change in presentation. stable. continue current mgmt. 11/11: stable. continue current mgmt. 11/12/2024: No changes to primary team's treatment plan 11/13/24: no changes 11/14 continue tx. 11/15 continue tx. 11/16: stable. no change in mgmt. Reason for continued inpatient stay Substantial Risk for: inability to function Time Spent With Patient Time: Total time managing care of this patient today ____ minutes.
[2024-11-16 20:00] VITALS: BP 107/65; PULSE 83; RESP 16; TEMP 37; O2SAT 96
[2024-11-17 08:00] VITALS: BP 126/64; PULSE 86; RESP 16; TEMP 36.3; O2SAT 99
[2024-11-17] MEDS: ARIPiprazole 30 MG TABLET PO (08:36)
[2024-11-17 12:50] VITALS: BMI 22.6
--- NOTE | 2024-11-17 16:46 | P.PNPSI_ITS ---
Subjective Subjective Date of Service: 11/17/24 Reason For Visit: bipolar 1 disorder current or most recent epi Subjective Notes: Conditional Voluntary Interim History: Pt slept through the night. She is taking medications as prescribed. No SI/HI. denies any concerns. visible for meals. not social with peers nor staff. Review of Systems Review of Systems Unremarkable Yes all other systems are reviewed and are negative Mental Status Exam Mental Status Exam Narrative: Appearance: adequately dressed and groomed Psychomotor: some retardation Speech: mostly clear, less latency, minimally spontaneous TP: [place] TC: no questions or complaints Mood: good Affect: Flat SI: none expressed HI: none expressed VH/AH: none evidenced Delusions: no overt delusional content noted or reported Insight/judgment: impaired . Diagnostics Vital Signs (24Hr): Vital Signs - 24 hr 11/16/24 20:00 11/17/24 08:00 Temperature 98.6 F 97.3 F Pulse Rate 83 86 Respiratory Rate 16 16 Blood Pressure 107/65 126/64 Pulse Oximetry 96 99 Oxygen Delivery Method Room Air Room Air BMI result Body Mass Index 22.6 Labs 11/15/24 11:02 11/15/24 11:02 Imaging Radiology Impressions: ITS Impressions Head CT 08/25/24 11:33 IMPRESSION: No acute intracranial abnormality. Electronically signed by: Cj Colunga MD 08/25/2024 12:12 PM EST RP KUB X-Ray 10/28/24 09:50 IMPRESSION: Abundant stool without intestinal obstruction pattern. Electronically signed by: Audie Uribe MD 10/28/2024 10:02 AM EDT RP Medications Medications Current Medications Acetaminophen (Acetaminophen 325 Mg Tablet) 650 mg PO Q6H PRN PRN Reason: Headache/Pain, Scale 1-10 Last Admin: 10/11/24 20:15 Dose: 650 mg Al Hydroxide/Mg Hydroxide (Magnesium Hydrox/Alum Hydrox 30 Ml Oral.Susp) 30 ml PO Q6H PRN PRN Reason: Heartburn/Nausea Aripiprazole (Aripiprazole 30 Mg Tablet) 30 mg PO DAILY [facility] Last Admin: 11/17/24 08:36 Dose: 30 mg Benzocaine (Throat Lozenge, Medicated Lozenge) 1 lozenge MUCOUS MEM Q1H PRN PRN Reason: Sore Throat Last Admin: 09/01/24 06:09 Dose: 1 lozenge Guaifenesin/Dextromethorphan (Guaifenesin Dm 200/20/10 Ml 10 Ml Syrup) 10 ml PO Q4H PRN PRN Reason: Cough Last Admin: 08/30/24 05:47 Dose: 10 ml Levothyroxine Sodium (Levothyroxine Sodium 75 Mcg Tablet) 75 mcg PO DAILY@0630 [facility] Last Admin: 11/17/24 06:06 Dose: 75 mcg Lidocaine/Diphenhydr/Alum/Mg/Simeth (Mag&Al/Sim/Diphenhyd/Lidocaine 10 Ml Oral.Susp) 10 ml PO Q6H PRN; Protocol PRN Reason: Painful Gums Last Admin: 08/26/24 13:38 Dose: 10 ml Magnesium Hydroxide (Milk Of Magnesia 30 Ml Oral.Susp) 30 ml PO DAILY PRN PRN Reason: Constipation Memantine (Memantine Hcl 5 Mg Tablet) 5 mg PO DAILY [facility] Last Admin: 11/17/24 08:36 Dose: 5 mg Olanzapine (Olanzapine Odt 10 Mg Tab.Rapdis) 5 mg TRANSLINGU Q6H PRN PRN Reason: Agitation Last Admin: 11/01/24 20:50 Dose: 5 mg Polyethylene Glycol (Polyethylene Glycol 3350 17 Gm Powd.Pack) 17 gm PO DAILY PRN PRN Reason: constipation Pravastatin Sodium (Pravastatin Sodium 40 Mg Tablet) 40 mg PO BEDTIME [facility] Last Admin: 11/16/24 20:24 Dose: 40 mg Senna/Docusate Sodium (Sennosides/Docusate Sodium Tablet) 1 tab PO BID [facility] Last Admin: 11/17/24 08:36 Dose: 1 tab Vitamin D (Cholecalciferol (Vitamin D3) 25 Mcg Tablet) 50 mcg PO DAILY [facility] Last Admin: 11/17/24 08:36 Dose: 50 mcg Allergies Allergies Allergy/AdvReac Type Severity Reaction Status Date / Time meperidine [From Demerol] AdvReac Intermediate Rash Verified 08/23/24 19:34 morphine AdvReac Intermediate Rash Verified 08/23/24 19:35 Sulfa (Sulfonamide AdvReac Intermediate Rash Verified 08/23/24 19:36 Antibiotics) Assessment & Plan Assessment & Plan (1) Schizoaffective disorder: Status: Acute Code(s): F25.9 - Schizoaffective disorder, unspecified Plan Ms. Thomas is a 69 year-old woman with hx of Bipolar Disorder, she currently presents with several symptoms suggestive of negative symptoms seem usually in schizoaffective disorder including constricted affect, abulia (some acknowledgment that she needed to initiate certain activities like going to dentist but still not doing so for unclear reasons). No overt paranoid delusions, her delayed response may be signs of thought blocking and underlying psychosis. She is in agreement to receive treatment and complete work up to also assess her memory and cognition. 11/07 continue tx. awaiting placement. 11/08: stable presentation, awaiting placement. 11/09: no change, awaiting placement. 11/10: no change in presentation. stable. continue current mgmt. 11/11: stable. continue current mgmt. 11/12/2024: No changes to primary team's treatment plan 11/13/24: no changes 11/14 continue tx. 11/15 continue tx. 11/16: stable. no change in mgmt. 11/17 continue tx. Reason for continued inpatient stay Substantial Risk for: inability to function Time Spent With Patient Time: Total time managing care of this patient today ____ minutes.
[2024-11-17 20:00] VITALS: BP 116/62; PULSE 77; RESP 16; TEMP 36.9; O2SAT 97
[2024-11-18 08:00] VITALS: BP 126/58; PULSE 76; RESP 16; TEMP 36.2; O2SAT 100
[2024-11-18] MEDS: ARIPiprazole 30 MG TABLET PO (08:49)
--- NOTE | 2024-11-18 14:13 | P.PNPSI_ITS ---
Subjective Subjective Date of Service: 11/18/24 Reason For Visit: bipolar 1 disorder current or most recent epi Interim History: no change in presentation. per staff, no notable events or behaviors. Mental Status Exam Mental Status Exam Narrative: Appearance: adequately dressed and groomed Psychomotor: some retardation Speech: mostly clear, less latency, minimally spontaneous TP: [place] TC: no questions or complaints Mood: good Affect: Flat SI: none expressed HI: none expressed VH/AH: none evidenced Delusions: no overt delusional content noted or reported Insight/judgment: impaired . Diagnostics Vital Signs (24Hr): Vital Signs - 24 hr 11/17/24 20:00 11/18/24 08:00 Temperature 98.4 F 97.2 F Pulse Rate 77 76 Respiratory Rate 16 16 Blood Pressure 116/62 126/58 L Pulse Oximetry 97 100 Oxygen Delivery Method Room Air Room Air BMI result Body Mass Index 22.6 Labs 11/15/24 11:02 11/15/24 11:02 Imaging Radiology Impressions: ITS Impressions Head CT 08/25/24 11:33 IMPRESSION: No acute intracranial abnormality. Electronically signed by: Cj Colunga MD 08/25/2024 12:12 PM EST RP KUB X-Ray 10/28/24 09:50 IMPRESSION: Abundant stool without intestinal obstruction pattern. Electronically signed by: Audie Uribe MD 10/28/2024 10:02 AM EDT RP Medications Medications Current Medications Acetaminophen (Acetaminophen 325 Mg Tablet) 650 mg PO Q6H PRN PRN Reason: Headache/Pain, Scale 1-10 Last Admin: 10/11/24 20:15 Dose: 650 mg Al Hydroxide/Mg Hydroxide (Magnesium Hydrox/Alum Hydrox 30 Ml Oral.Susp) 30 ml PO Q6H PRN PRN Reason: Heartburn/Nausea Aripiprazole (Aripiprazole 30 Mg Tablet) 30 mg PO DAILY [facility] Last Admin: 11/18/24 08:49 Dose: 30 mg Benzocaine (Throat Lozenge, Medicated Lozenge) 1 lozenge MUCOUS MEM Q1H PRN PRN Reason: Sore Throat Last Admin: 09/01/24 06:09 Dose: 1 lozenge Guaifenesin/Dextromethorphan (Guaifenesin Dm 200/20/10 Ml 10 Ml Syrup) 10 ml PO Q4H PRN PRN Reason: Cough Last Admin: 08/30/24 05:47 Dose: 10 ml Levothyroxine Sodium (Levothyroxine Sodium 75 Mcg Tablet) 75 mcg PO DAILY@0630 [facility] Last Admin: 11/18/24 05:47 Dose: 75 mcg Lidocaine/Diphenhydr/Alum/Mg/Simeth (Mag&Al/Sim/Diphenhyd/Lidocaine 10 Ml Oral.Susp) 10 ml PO Q6H PRN; Protocol PRN Reason: Painful Gums Last Admin: 08/26/24 13:38 Dose: 10 ml Magnesium Hydroxide (Milk Of Magnesia 30 Ml Oral.Susp) 30 ml PO DAILY PRN PRN Reason: Constipation Memantine (Memantine Hcl 5 Mg Tablet) 5 mg PO DAILY [facility] Last Admin: 11/18/24 08:49 Dose: 5 mg Olanzapine (Olanzapine Odt 10 Mg Tab.Rapdis) 5 mg TRANSLINGU Q6H PRN PRN Reason: Agitation Last Admin: 11/01/24 20:50 Dose: 5 mg Polyethylene Glycol (Polyethylene Glycol 3350 17 Gm Powd.Pack) 17 gm PO DAILY PRN PRN Reason: constipation Pravastatin Sodium (Pravastatin Sodium 40 Mg Tablet) 40 mg PO BEDTIME [facility] Last Admin: 11/17/24 20:52 Dose: 40 mg Senna/Docusate Sodium (Sennosides/Docusate Sodium Tablet) 1 tab PO BID [facility] Last Admin: 11/18/24 08:49 Dose: 1 tab Vitamin D (Cholecalciferol (Vitamin D3) 25 Mcg Tablet) 50 mcg PO DAILY [facility] Last Admin: 11/18/24 08:49 Dose: 50 mcg Allergies Allergies Allergy/AdvReac Type Severity Reaction Status Date / Time meperidine [From Demerol] AdvReac Intermediate Rash Verified 08/23/24 19:34 morphine AdvReac Intermediate Rash Verified 08/23/24 19:35 Sulfa (Sulfonamide AdvReac Intermediate Rash Verified 08/23/24 19:36 Antibiotics) Assessment & Plan Assessment & Plan (1) Schizoaffective disorder: Status: Acute Code(s): F25.9 - Schizoaffective disorder, unspecified Plan Ms. Thomas is a 69 year-old woman with hx of Bipolar Disorder, she currently presents with several symptoms suggestive of negative symptoms seem usually in schizoaffective disorder including constricted affect, abulia (some acknowledgment that she needed to initiate certain activities like going to dentist but still not doing so for unclear reasons). No overt paranoid delusions, her delayed response may be signs of thought blocking and underlying psychosis. She is in agreement to receive treatment and complete work up to also assess her memory and cognition. 11/07 continue tx. awaiting placement. 11/08: stable presentation, awaiting placement. 11/09: no change, awaiting placement. 11/10: no change in presentation. stable. continue current mgmt. 11/11: stable. continue current mgmt. 11/12/2024: No changes to primary team's treatment plan 11/13/24: no changes 11/14 continue tx. 11/15 continue tx. 11/16: stable. no change in mgmt. 11/17 continue tx. 11/18: stable. no change in presentation or mgmt today. Reason for continued inpatient stay Substantial Risk for: inability to function and rapid decompensation Time Spent With Patient Time: Total time managing care of this patient today ____ minutes.
[2024-11-18 20:00] VITALS: BP 128/60; PULSE 72; RESP 16; TEMP 36.4; O2SAT 96
[2024-11-19 08:00] VITALS: BP 116/56; PULSE 86; RESP 16; TEMP 36.7; O2SAT 97
[2024-11-19] MEDS: ARIPiprazole 30 MG TABLET PO (08:48)
--- NOTE | 2024-11-19 10:01 | HO.PSYCHPN ---
Subjective Subjective Date of Service: 11/19/24 Reason For Visit: bipolar 1 disorder current or most recent epi Interim History: no change in presentation. per staff, no notable events or behaviors. Review of Systems Review of Systems Unremarkable Yes all other systems are reviewed and are negative Mental Status Exam Mental Status Exam Narrative: Appearance: adequately dressed and groomed Psychomotor: some retardation Speech: mostly clear, less latency, minimally spontaneous TP: [place] TC: no questions or complaints Mood: good Affect: Flat SI: none expressed HI: none expressed VH/AH: none evidenced Delusions: no overt delusional content noted or reported Insight/judgment: impaired . Patient Appearance: Well Grooomed Patient Orientation: Person, Place, Time and Situation Level of Consciousness: Awake Patient Behavior: Isolative Mood Description: Withdrawn Affect Description: Apathetic Patient Cognition Impaired: No Ability to Follow Directions: Fair Speech Pattern: Clear and Delayed Memory Description: Intact Diagnostics Vital Signs (24Hr): Vital Signs - 24 hr 11/18/24 20:00 11/19/24 08:00 Temperature 97.6 F 98.1 F Pulse Rate 72 86 Respiratory Rate 16 16 Blood Pressure 128/60 116/56 L Pulse Oximetry 96 97 Oxygen Delivery Method Room Air Room Air BMI result Body Mass Index 22.6 Labs 11/15/24 11:02 11/15/24 11:02 Imaging Radiology Impressions: ITS Impressions Head CT 08/25/24 11:33 IMPRESSION: No acute intracranial abnormality. Electronically signed by: Cj Colunga MD 08/25/2024 12:12 PM EST RP KUB X-Ray 10/28/24 09:50 IMPRESSION: Abundant stool without intestinal obstruction pattern. Electronically signed by: Audie Uribe MD 10/28/2024 10:02 AM EDT RP Medications Medications Current Medications Acetaminophen (Acetaminophen 325 Mg Tablet) 650 mg PO Q6H PRN PRN Reason: Headache/Pain, Scale 1-10 Last Admin: 10/11/24 20:15 Dose: 650 mg Al Hydroxide/Mg Hydroxide (Magnesium Hydrox/Alum Hydrox 30 Ml Oral.Susp) 30 ml PO Q6H PRN PRN Reason: Heartburn/Nausea Aripiprazole (Aripiprazole 30 Mg Tablet) 30 mg PO DAILY [facility] Last Admin: 11/19/24 08:48 Dose: 30 mg Benzocaine (Throat Lozenge, Medicated Lozenge) 1 lozenge MUCOUS MEM Q1H PRN PRN Reason: Sore Throat Last Admin: 09/01/24 06:09 Dose: 1 lozenge Guaifenesin/Dextromethorphan (Guaifenesin Dm 200/20/10 Ml 10 Ml Syrup) 10 ml PO Q4H PRN PRN Reason: Cough Last Admin: 08/30/24 05:47 Dose: 10 ml Levothyroxine Sodium (Levothyroxine Sodium 75 Mcg Tablet) 75 mcg PO DAILY@0630 [facility] Last Admin: 11/19/24 06:46 Dose: 75 mcg Lidocaine/Diphenhydr/Alum/Mg/Simeth (Mag&Al/Sim/Diphenhyd/Lidocaine 10 Ml Oral.Susp) 10 ml PO Q6H PRN; Protocol PRN Reason: Painful Gums Last Admin: 08/26/24 13:38 Dose: 10 ml Magnesium Hydroxide (Milk Of Magnesia 30 Ml Oral.Susp) 30 ml PO DAILY PRN PRN Reason: Constipation Memantine (Memantine Hcl 5 Mg Tablet) 5 mg PO DAILY [facility] Last Admin: 11/19/24 08:48 Dose: 5 mg Olanzapine (Olanzapine Odt 10 Mg Tab.Rapdis) 5 mg TRANSLINGU Q6H PRN PRN Reason: Agitation Last Admin: 11/01/24 20:50 Dose: 5 mg Polyethylene Glycol (Polyethylene Glycol 3350 17 Gm Powd.Pack) 17 gm PO DAILY PRN PRN Reason: constipation Pravastatin Sodium (Pravastatin Sodium 40 Mg Tablet) 40 mg PO BEDTIME [facility] Last Admin: 11/18/24 21:28 Dose: 40 mg Senna/Docusate Sodium (Sennosides/Docusate Sodium Tablet) 1 tab PO BID [facility] Last Admin: 11/19/24 08:48 Dose: 1 tab Vitamin D (Cholecalciferol (Vitamin D3) 25 Mcg Tablet) 50 mcg PO DAILY [facility] Last Admin: 11/19/24 08:48 Dose: 50 mcg Allergies Allergies Allergy/AdvReac Type Severity Reaction Status Date / Time meperidine [From Demerol] AdvReac Intermediate Rash Verified 08/23/24 19:34 morphine AdvReac Intermediate Rash Verified 08/23/24 19:35 Sulfa (Sulfonamide AdvReac Intermediate Rash Verified 08/23/24 19:36 Antibiotics) Assessment & Plan Assessment & Plan (1) Schizoaffective disorder: Status: Acute Code(s): F25.9 - Schizoaffective disorder, unspecified Plan Ms. Thomas is a 69 year-old woman with hx of Bipolar Disorder, she currently presents with several symptoms suggestive of negative symptoms seem usually in schizoaffective disorder including constricted affect, abulia (some acknowledgment that she needed to initiate certain activities like going to dentist but still not doing so for unclear reasons). No overt paranoid delusions, her delayed response may be signs of thought blocking and underlying psychosis. She is in agreement to receive treatment and complete work up to also assess her memory and cognition. 11/07 continue tx. awaiting placement. 11/08: stable presentation, awaiting placement. 11/09: no change, awaiting placement. 11/10: no change in presentation. stable. continue current mgmt. 11/11: stable. continue current mgmt. 11/12/2024: No changes to primary team's treatment plan 11/13/24: no changes 11/14 continue tx. 11/15 continue tx. 11/16: stable. no change in mgmt. 11/17 continue tx. 11/18: stable. no change in presentation or mgmt today. 11/19: continue current management and treatment plan. Reason for continued inpatient stay Substantial Risk for: inability to function and rapid decompensation Time Spent With Patient Time: Total time managing care of this patient today ____ minutes.
[2024-11-19 20:00] VITALS: BP 137/78; PULSE 86; RESP 18; TEMP 36.6; O2SAT 95
[2024-11-20 08:00] VITALS: BP 128/61; PULSE 75; RESP 16; TEMP 36.7; O2SAT 96
[2024-11-20] MEDS: ARIPiprazole 30 MG TABLET PO (08:46)
--- NOTE | 2024-11-20 14:42 | P.PNPSI_ITS ---
Subjective Subjective Date of Service: 11/20/24 Reason For Visit: bipolar 1 disorder current or most recent epi Interim History: Patient is anxious. Limited participation. No change presentation. No complaints. Was incontinent of urine. Review of Systems Review of Systems Unremarkable Yes all other systems are reviewed and are negative Mental Status Exam Mental Status Exam Narrative: Appearance: adequately dressed and groomed Psychomotor: some retardation Speech: mostly clear, less latency, minimally spontaneous TP: [place] TC: no questions or complaints Mood: good Affect: Flat SI: none expressed HI: none expressed VH/AH: none evidenced Delusions: no overt delusional content noted or reported Insight/judgment: impaired . Patient Appearance: Well Grooomed Patient Orientation: Person, Place, Time and Situation Level of Consciousness: Awake Patient Behavior: Isolative Mood Description: Withdrawn Affect Description: Apathetic Patient Cognition Impaired: No Ability to Follow Directions: Fair Speech Pattern: Clear and Delayed Memory Description: Intact Diagnostics Vital Signs (24Hr): Vital Signs - 24 hr 11/19/24 20:00 11/20/24 08:00 Temperature 98 F 98.1 F Pulse Rate 86 75 Respiratory Rate 18 16 Blood Pressure 137/78 128/61 Pulse Oximetry 95 96 Oxygen Delivery Method Room Air Room Air BMI result Body Mass Index 22.6 Labs 11/15/24 11:02 11/15/24 11:02 Imaging Radiology Impressions: ITS Impressions Head CT 08/25/24 11:33 IMPRESSION: No acute intracranial abnormality. Electronically signed by: Cj Colunga MD 08/25/2024 12:12 PM EST RP KUB X-Ray 10/28/24 09:50 IMPRESSION: Abundant stool without intestinal obstruction pattern. Electronically signed by: Audie Uribe MD 10/28/2024 10:02 AM EDT RP Medications Medications Current Medications Acetaminophen (Acetaminophen 325 Mg Tablet) 650 mg PO Q6H PRN PRN Reason: Headache/Pain, Scale 1-10 Last Admin: 10/11/24 20:15 Dose: 650 mg Al Hydroxide/Mg Hydroxide (Magnesium Hydrox/Alum Hydrox 30 Ml Oral.Susp) 30 ml PO Q6H PRN PRN Reason: Heartburn/Nausea Aripiprazole (Aripiprazole 30 Mg Tablet) 30 mg PO DAILY [facility] Last Admin: 11/20/24 08:46 Dose: 30 mg Benzocaine (Throat Lozenge, Medicated Lozenge) 1 lozenge MUCOUS MEM Q1H PRN PRN Reason: Sore Throat Last Admin: 09/01/24 06:09 Dose: 1 lozenge Guaifenesin/Dextromethorphan (Guaifenesin Dm 200/20/10 Ml 10 Ml Syrup) 10 ml PO Q4H PRN PRN Reason: Cough Last Admin: 08/30/24 05:47 Dose: 10 ml Levothyroxine Sodium (Levothyroxine Sodium 75 Mcg Tablet) 75 mcg PO DAILY@0630 [facility] Last Admin: 11/20/24 06:39 Dose: 75 mcg Lidocaine/Diphenhydr/Alum/Mg/Simeth (Mag&Al/Sim/Diphenhyd/Lidocaine 10 Ml Oral.Susp) 10 ml PO Q6H PRN; Protocol PRN Reason: Painful Gums Last Admin: 08/26/24 13:38 Dose: 10 ml Magnesium Hydroxide (Milk Of Magnesia 30 Ml Oral.Susp) 30 ml PO DAILY PRN PRN Reason: Constipation Memantine (Memantine Hcl 5 Mg Tablet) 5 mg PO DAILY [facility] Last Admin: 11/20/24 08:46 Dose: 5 mg Olanzapine (Olanzapine Odt 10 Mg Tab.Rapdis) 5 mg TRANSLINGU Q6H PRN PRN Reason: Agitation Last Admin: 11/01/24 20:50 Dose: 5 mg Polyethylene Glycol (Polyethylene Glycol 3350 17 Gm Powd.Pack) 17 gm PO DAILY PRN PRN Reason: constipation Pravastatin Sodium (Pravastatin Sodium 40 Mg Tablet) 40 mg PO BEDTIME REPLACED BY [facility] Last Admin: 11/19/24 21:30 Dose: 40 mg Senna/Docusate Sodium (Sennosides/Docusate Sodium Tablet) 1 tab PO BID [facility]PL[facility] Last Admin: 11/20/24 08:46 Dose: 1 tab Vitamin D (Cholecalciferol (Vitamin D3) 25 Mcg Tablet) 50 mcg PO DAILY [facility]PL[facility] Last Admin: 11/20/24 08:46 Dose: 50 mcg Allergies Allergies Allergy/AdvReac Type Severity Reaction Status Date / Time meperidine [From Demerol] AdvReac Intermediate Rash Verified 08/23/24 19:34 morphine AdvReac Intermediate Rash Verified 08/23/24 19:35 Sulfa (Sulfonamide AdvReac Intermediate Rash Verified 08/23/24 19:36 Antibiotics) Assessment & Plan Assessment & Plan (1) Schizoaffective disorder: Status: Acute Code(s): F25.9 - Schizoaffective disorder, unspecified Plan Ms. Thomas is a 69 year-old woman with hx of Bipolar Disorder, she currently presents with several symptoms suggestive of negative symptoms seem usually in schizoaffective disorder including constricted affect, abulia (some acknowledgment that she needed to initiate certain activities like going to dentist but still not doing so for unclear reasons). No overt paranoid delusions, her delayed response may be signs of thought blocking and underlying psychosis. She is in agreement to receive treatment and complete work up to also assess her memory and cognition. 11/07 continue tx. awaiting placement. 11/08: stable presentation, awaiting placement. 11/09: no change, awaiting placement. 11/10: no change in presentation. stable. continue current mgmt. 11/11: stable. continue current mgmt. 11/12/2024: No changes to primary team's treatment plan 11/13/24: no changes 11/14 continue tx. 11/15 continue tx. 11/16: stable. no change in mgmt. 11/17 continue tx. 11/18: stable. no change in presentation or mgmt today. 11/19: continue current management and treatment plan. 11/20: continue current management and treatment plan. Reason for continued inpatient stay Substantial Risk for: inability to function and rapid decompensation Time Spent With Patient Time: Total time managing care of this patient today ____ minutes.
[2024-11-20 20:00] VITALS: BP 123/59; PULSE 73; RESP 16; TEMP 36.4; O2SAT 98
[2024-11-21 08:00] VITALS: BP 111/64; PULSE 79; RESP 16; TEMP 36.8; O2SAT 98
[2024-11-21] MEDS: ARIPiprazole 30 MG TABLET PO (08:22)
--- NOTE | 2024-11-21 09:34 | P.PNPSI_ITS ---
Subjective Subjective Date of Service: 11/21/24 Reason For Visit: bipolar 1 disorder current or most recent epi Interim History: Michael reports she is doing well today. Per nursing, she is adherent to medications. No behavioral concerns. Appears flat. Calm and cooperative when approached. Denies SI/HI/AVH. Review of Systems Review of Systems Unremarkable Yes all other systems are reviewed and are negative Mental Status Exam Mental Status Exam Narrative: Appearance: adequately dressed and groomed Psychomotor: some retardation Speech: mostly clear, less latency, minimally spontaneous TP: [place] TC: no questions or complaints Mood: good Affect: Flat SI: none expressed HI: none expressed VH/AH: none evidenced Delusions: no overt delusional content noted or reported Insight/judgment: impaired . Patient Appearance: Well Grooomed Patient Orientation: Person, Place, Time and Situation Level of Consciousness: Awake Patient Behavior: Isolative Mood Description: Withdrawn Affect Description: Apathetic Patient Cognition Impaired: No Ability to Follow Directions: Fair Speech Pattern: Clear and Delayed Memory Description: Intact Diagnostics Vital Signs (24Hr): Vital Signs - 24 hr 11/20/24 20:00 11/21/24 08:00 Temperature 97.5 F 98.2 F Pulse Rate 73 79 Respiratory Rate 16 16 Blood Pressure 123/59 L 111/64 Pulse Oximetry 98 98 Oxygen Delivery Method Room Air Room Air BMI result Body Mass Index 22.6 Labs 11/15/24 11:02 11/15/24 11:02 Imaging Radiology Impressions: ITS Impressions Head CT 08/25/24 11:33 IMPRESSION: No acute intracranial abnormality. Electronically signed by: Cj Colunga MD 08/25/2024 12:12 PM EST RP KUB X-Ray 10/28/24 09:50 IMPRESSION: Abundant stool without intestinal obstruction pattern. Electronically signed by: Audie Uribe MD 10/28/2024 10:02 AM EDT RP Medications Medications Current Medications Acetaminophen (Acetaminophen 325 Mg Tablet) 650 mg PO Q6H PRN PRN Reason: Headache/Pain, Scale 1-10 Last Admin: 10/11/24 20:15 Dose: 650 mg Al Hydroxide/Mg Hydroxide (Magnesium Hydrox/Alum Hydrox 30 Ml Oral.Susp) 30 ml PO Q6H PRN PRN Reason: Heartburn/Nausea Aripiprazole (Aripiprazole 30 Mg Tablet) 30 mg PO DAILY [facility] Last Admin: 11/21/24 08:22 Dose: 30 mg Benzocaine (Throat Lozenge, Medicated Lozenge) 1 lozenge MUCOUS MEM Q1H PRN PRN Reason: Sore Throat Last Admin: 09/01/24 06:09 Dose: 1 lozenge Guaifenesin/Dextromethorphan (Guaifenesin Dm 200/20/10 Ml 10 Ml Syrup) 10 ml PO Q4H PRN PRN Reason: Cough Last Admin: 08/30/24 05:47 Dose: 10 ml Levothyroxine Sodium (Levothyroxine Sodium 75 Mcg Tablet) 75 mcg PO DAILY@0630 [facility] Last Admin: 11/21/24 05:52 Dose: 75 mcg Lidocaine/Diphenhydr/Alum/Mg/Simeth (Mag&Al/Sim/Diphenhyd/Lidocaine 10 Ml Oral.Susp) 10 ml PO Q6H PRN; Protocol PRN Reason: Painful Gums Last Admin: 08/26/24 13:38 Dose: 10 ml Magnesium Hydroxide (Milk Of Magnesia 30 Ml Oral.Susp) 30 ml PO DAILY PRN PRN Reason: Constipation Memantine (Memantine Hcl 5 Mg Tablet) 5 mg PO DAILY [facility] Last Admin: 11/21/24 08:22 Dose: 5 mg Olanzapine (Olanzapine Odt 10 Mg Tab.Rapdis) 5 mg TRANSLINGU Q6H PRN PRN Reason: Agitation Last Admin: 11/01/24 20:50 Dose: 5 mg Polyethylene Glycol (Polyethylene Glycol 3350 17 Gm Powd.Pack) 17 gm PO DAILY PRN PRN Reason: constipation Pravastatin Sodium (Pravastatin Sodium 40 Mg Tablet) 40 mg PO BEDTIME [facility] Last Admin: 11/20/24 20:29 Dose: 40 mg Senna/Docusate Sodium (Sennosides/Docusate Sodium Tablet) 1 tab PO BID [facility] Last Admin: 11/21/24 08:22 Dose: 1 tab Vitamin D (Cholecalciferol (Vitamin D3) 25 Mcg Tablet) 50 mcg PO DAILY [facility] Last Admin: 11/21/24 08:22 Dose: 50 mcg Allergies Allergies Allergy/AdvReac Type Severity Reaction Status Date / Time meperidine [From Demerol] AdvReac Intermediate Rash Verified 08/23/24 19:34 morphine AdvReac Intermediate Rash Verified 08/23/24 19:35 Sulfa (Sulfonamide AdvReac Intermediate Rash Verified 08/23/24 19:36 Antibiotics) Assessment & Plan Assessment & Plan (1) Schizoaffective disorder: Status: Acute Code(s): F25.9 - Schizoaffective disorder, unspecified Plan Ms. Thomas is a 69 year-old woman with hx of Bipolar Disorder, she currently presents with several symptoms suggestive of negative symptoms seem usually in schizoaffective disorder including constricted affect, abulia (some acknowledgment that she needed to initiate certain activities like going to dentist but still not doing so for unclear reasons). No overt paranoid delusions, her delayed response may be signs of thought blocking and underlying psychosis. She is in agreement to receive treatment and complete work up to also assess her memory and cognition. 11/07 continue tx. awaiting placement. 11/08: stable presentation, awaiting placement. 11/09: no change, awaiting placement. 11/10: no change in presentation. stable. continue current mgmt. 11/11: stable. continue current mgmt. 11/12/2024: No changes to primary team's treatment plan 11/13/24: no changes 11/14 continue tx. 11/15 continue tx. 11/16: stable. no change in mgmt. 11/17 continue tx. 11/18: stable. no change in presentation or mgmt today. 11/19: continue current management and treatment plan. 11/20: continue current management and treatment plan. 11/21: continue current management and treatment plan. Reason for continued inpatient stay Substantial Risk for: inability to function and rapid decompensation Time Spent With Patient Time: Total time managing care of this patient today ____ minutes.
[2024-11-21 20:00] VITALS: BP 117/59; PULSE 75; RESP 16; TEMP 36.9; O2SAT 97
--- NOTE | 2024-11-22 08:40 | P.PNPSI_ITS ---
Subjective Subjective Date of Service: 11/22/24 Reason For Visit: bipolar 1 disorder current or most recent epi Subjective Notes: Conditional Voluntary Interim History: Pt slept through the night. No behavioral concerns. poverty of thought. ambulates in unit. not social. denies any concerns. She does take medications as prescribed. will increase namenda to target negative symptoms of schizophrenia. Review of Systems Review of Systems Unremarkable Yes all other systems are reviewed and are negative Mental Status Exam Mental Status Exam Narrative: Appearance: adequately dressed and groomed Psychomotor: some retardation Speech: mostly clear, less latency, minimally spontaneous TP: [place] TC: no questions or complaints Mood: good Affect: Flat SI: none expressed HI: none expressed VH/AH: none evidenced Delusions: no overt delusional content noted or reported Insight/judgment: impaired . Diagnostics Vital Signs (24Hr): Vital Signs - 24 hr 11/21/24 20:00 Temperature 98.4 F Pulse Rate 75 Respiratory Rate 16 Blood Pressure 117/59 L Pulse Oximetry 97 Oxygen Delivery Method Room Air BMI result Body Mass Index 22.6 Labs 11/15/24 11:02 11/15/24 11:02 Imaging Radiology Impressions: ITS Impressions Head CT 08/25/24 11:33 IMPRESSION: No acute intracranial abnormality. Electronically signed by: Cj Colunga MD 08/25/2024 12:12 PM EST RP KUB X-Ray 10/28/24 09:50 IMPRESSION: Abundant stool without intestinal obstruction pattern. Electronically signed by: Audie Uribe MD 10/28/2024 10:02 AM EDT RP Medications Medications Current Medications Aripiprazole (Aripiprazole 30 Mg Tablet) 30 mg PO DAILY [facility] Last Admin: 11/21/24 08:22 Dose: 30 mg Benzocaine (Throat Lozenge, Medicated Lozenge) 1 lozenge MUCOUS MEM Q1H PRN PRN Reason: Sore Throat Last Admin: 09/01/24 06:09 Dose: 1 lozenge Guaifenesin/Dextromethorphan (Guaifenesin Dm 200/20/10 Ml 10 Ml Syrup) 10 ml PO Q4H PRN PRN Reason: Cough Last Admin: 08/30/24 05:47 Dose: 10 ml Levothyroxine Sodium (Levothyroxine Sodium 75 Mcg Tablet) 75 mcg PO DAILY@0600 [facility] Lidocaine/Diphenhydr/Alum/Mg/Simeth (Mag&Al/Sim/Diphenhyd/Lidocaine 10 Ml Oral.Susp) 10 ml PO Q6H PRN; Protocol PRN Reason: Painful Gums Last Admin: 08/26/24 13:38 Dose: 10 ml Memantine (Memantine Hcl 5 Mg Tablet) 5 mg PO DAILY [facility] Last Admin: 11/21/24 08:22 Dose: 5 mg Olanzapine (Olanzapine Odt 10 Mg Tab.Rapdis) 5 mg TRANSLINGU Q6H PRN PRN Reason: Agitation Last Admin: 11/01/24 20:50 Dose: 5 mg Polyethylene Glycol (Polyethylene Glycol 3350 17 Gm Powd.Pack) 17 gm PO DAILY PRN PRN Reason: constipation Senna/Docusate Sodium (Sennosides/Docusate Sodium Tablet) 1 tab PO BID [facility] Last Admin: 11/21/24 20:52 Dose: 1 tab Vitamin D (Cholecalciferol (Vitamin D3) 25 Mcg Tablet) 50 mcg PO DAILY [facility] Last Admin: 11/21/24 08:22 Dose: 50 mcg Allergies Allergies Allergy/AdvReac Type Severity Reaction Status Date / Time meperidine [From Demerol] AdvReac Intermediate Rash Verified 08/23/24 19:34 morphine AdvReac Intermediate Rash Verified 08/23/24 19:35 Sulfa (Sulfonamide AdvReac Intermediate Rash Verified 08/23/24 19:36 Antibiotics) Assessment & Plan Assessment & Plan (1) Schizoaffective disorder: Status: Acute Code(s): F25.9 - Schizoaffective disorder, unspecified Plan Ms. Thomas is a 69 year-old woman with hx of Bipolar Disorder, she currently presents with several symptoms suggestive of negative symptoms seem usually in schizoaffective disorder including constricted affect, abulia (some acknowledgment that she needed to initiate certain activities like going to dentist but still not doing so for unclear reasons). No overt paranoid delusions, her delayed response may be signs of thought blocking and underlying psychosis. She is in agreement to receive treatment and complete work up to also assess her memory and cognition. 11/07 continue tx. awaiting placement. 11/08: stable presentation, awaiting placement. 11/09: no change, awaiting placement. 11/10: no change in presentation. stable. continue current mgmt. 11/11: stable. continue current mgmt. 11/12/2024: No changes to primary team's treatment plan 11/13/24: no changes 11/14 continue tx. 11/15 continue tx. 11/16: stable. no change in mgmt. 11/17 continue tx. 11/18: stable. no change in presentation or mgmt today. 11/19: continue current management and treatment plan. 11/20: continue current management and treatment plan. 11/21: continue current management and treatment plan. 11/22 increase namenda 5mg po BID, target abulia. Reason for continued inpatient stay Substantial Risk for: inability to function Time Spent With Patient Time: Total time managing care of this patient today ____ minutes.
[2024-11-22 09:45] VITALS: BP 121/58; PULSE 85; RESP 16; TEMP 36.9; O2SAT 97
[2024-11-22] MEDS: ARIPiprazole 30 MG TABLET PO (09:46)
[2024-11-22 20:00] VITALS: BP 130/63; PULSE 71; RESP 16; TEMP 36.2; O2SAT 98
[2024-11-23 08:00] VITALS: BP 132/78; PULSE 89; RESP 14; O2SAT 98
[2024-11-23] MEDS: ARIPiprazole 30 MG TABLET PO (08:31)
[2024-11-23 20:00] VITALS: BP 117/54; PULSE 76; RESP 16; TEMP 36; O2SAT 98
[2024-11-24 09:50] VITALS: BP 104/66; PULSE 89; RESP 16; TEMP 36.8; O2SAT 98
[2024-11-24] MEDS: ARIPiprazole 30 MG TABLET PO (09:51)
--- NOTE | 2024-11-24 12:36 | HO.PSYCHPN ---
Subjective Subjective Date of Service: 11/24/24 Reason For Visit: bipolar 1 disorder current or most recent epi Interim History: no change in presentation. lying in bed, awake. good. per staff, stating she is feeling better, but presentation unchanged. in bed all day. no bfast or lunch yesterday. Mental Status Exam Mental Status Exam Narrative: Appearance: adequately dressed and groomed Psychomotor: some retardation Speech: mostly clear, less latency, minimally spontaneous TP: [place] TC: no questions or complaints Mood: good Affect: Flat SI: none expressed HI: none expressed VH/AH: none evidenced Delusions: no overt delusional content noted or reported Insight/judgment: impaired . Diagnostics Vital Signs (24Hr): Vital Signs - 24 hr 11/23/24 20:00 11/24/24 09:50 Temperature 96.8 F 98.2 F Pulse Rate 76 89 Respiratory Rate 16 16 Blood Pressure 117/54 L 104/66 Pulse Oximetry 98 98 Oxygen Delivery Method Room Air Room Air BMI result Body Mass Index 22.6 Labs 11/15/24 11:02 11/15/24 11:02 Imaging Radiology Impressions: ITS Impressions Head CT 08/25/24 11:33 IMPRESSION: No acute intracranial abnormality. Electronically signed by: Cj Colunga MD 08/25/2024 12:12 PM EST RP KUB X-Ray 10/28/24 09:50 IMPRESSION: Abundant stool without intestinal obstruction pattern. Electronically signed by: Audie Uribe MD 10/28/2024 10:02 AM EDT RP Medications Medications Current Medications Aripiprazole (Aripiprazole 30 Mg Tablet) 30 mg PO DAILY [facility] Last Admin: 11/24/24 09:51 Dose: 30 mg Benzocaine (Throat Lozenge, Medicated Lozenge) 1 lozenge MUCOUS MEM Q1H PRN PRN Reason: Sore Throat Last Admin: 09/01/24 06:09 Dose: 1 lozenge Guaifenesin/Dextromethorphan (Guaifenesin Dm 200/20/10 Ml 10 Ml Syrup) 10 ml PO Q4H PRN PRN Reason: Cough Last Admin: 08/30/24 05:47 Dose: 10 ml Levothyroxine Sodium (Levothyroxine Sodium 75 Mcg Tablet) 75 mcg PO DAILY@0600 [facility] Last Admin: 11/24/24 06:28 Dose: 75 mcg Lidocaine/Diphenhydr/Alum/Mg/Simeth (Mag&Al/Sim/Diphenhyd/Lidocaine 10 Ml Oral.Susp) 10 ml PO Q6H PRN; Protocol PRN Reason: Painful Gums Last Admin: 08/26/24 13:38 Dose: 10 ml Memantine (Memantine Hcl 5 Mg Tablet) 5 mg PO BID [facility] Last Admin: 11/24/24 09:51 Dose: 5 mg Olanzapine (Olanzapine Odt 10 Mg Tab.Rapdis) 5 mg TRANSLINGU Q6H PRN PRN Reason: Agitation Last Admin: 11/01/24 20:50 Dose: 5 mg Polyethylene Glycol (Polyethylene Glycol 3350 17 Gm Powd.Pack) 17 gm PO DAILY PRN PRN Reason: constipation Senna/Docusate Sodium (Sennosides/Docusate Sodium Tablet) 1 tab PO BID [facility] Last Admin: 11/24/24 09:51 Dose: 1 tab Vitamin D (Cholecalciferol (Vitamin D3) 25 Mcg Tablet) 50 mcg PO DAILY [facility] Last Admin: 11/24/24 09:51 Dose: 50 mcg Allergies Allergies Allergy/AdvReac Type Severity Reaction Status Date / Time meperidine [From Demerol] AdvReac Intermediate Rash Verified 08/23/24 19:34 morphine AdvReac Intermediate Rash Verified 08/23/24 19:35 Sulfa (Sulfonamide AdvReac Intermediate Rash Verified 08/23/24 19:36 Antibiotics) Assessment & Plan Assessment & Plan (1) Schizoaffective disorder: Status: Acute Code(s): F25.9 - Schizoaffective disorder, unspecified Plan Ms. Thomas is a 69 year-old woman with hx of Bipolar Disorder, she currently presents with several symptoms suggestive of negative symptoms seem usually in schizoaffective disorder including constricted affect, abulia (some acknowledgment that she needed to initiate certain activities like going to dentist but still not doing so for unclear reasons). No overt paranoid delusions, her delayed response may be signs of thought blocking and underlying psychosis. She is in agreement to receive treatment and complete work up to also assess her memory and cognition. 11/07 continue tx. awaiting placement. 11/08: stable presentation, awaiting placement. 11/09: no change, awaiting placement. 11/10: no change in presentation. stable. continue current mgmt. 11/11: stable. continue current mgmt. 11/12/2024: No changes to primary team's treatment plan 11/13/24: no changes 11/14 continue tx. 11/15 continue tx. 11/16: stable. no change in mgmt. 11/17 continue tx. 11/18: stable. no change in presentation or mgmt today. 11/19: continue current management and treatment plan. 11/20: continue current management and treatment plan. 11/21: continue current management and treatment plan. 11/22 increase namenda 5mg po BID, target abulia. 11/24: no change in presentation. continue current mgmt. Reason for continued inpatient stay Substantial Risk for: inability to function Time Spent With Patient Time: Total time managing care of this patient today ____ minutes.
[2024-11-24 13:50] VITALS: BMI 23.1
[2024-11-24 20:00] VITALS: BP 138/60; PULSE 87; RESP 16; TEMP 36.2; O2SAT 96
[2024-11-25 08:00] VITALS: BP 125/59; PULSE 78; RESP 18; TEMP 37.3; O2SAT 96
[2024-11-25] MEDS: ARIPiprazole 30 MG TABLET PO (08:13)
--- NOTE | 2024-11-25 11:16 | P.PNPSI_ITS ---
Subjective Subjective Date of Service: 11/25/24 Reason For Visit: bipolar 1 disorder current or most recent epi Interim History: no change in presentation. no requests or complaints. per staff, ate lunch and dinner yesterday. no PO fluids in the mornings. slept 8 hours. Mental Status Exam Mental Status Exam Narrative: Appearance: adequately dressed and groomed Psychomotor: some retardation Speech: mostly clear, less latency, minimally spontaneous TP: [place] TC: no questions or complaints Mood: good Affect: Flat SI: none expressed HI: none expressed VH/AH: none evidenced Delusions: no overt delusional content noted or reported Insight/judgment: impaired . Diagnostics Vital Signs (24Hr): Vital Signs - 24 hr 11/24/24 20:00 11/25/24 08:00 Temperature 97.2 F 99.1 F Pulse Rate 87 78 Respiratory Rate 16 18 Blood Pressure 138/60 125/59 L Pulse Oximetry 96 96 Oxygen Delivery Method Room Air Room Air BMI result Body Mass Index 23.1 Labs 11/15/24 11:02 11/15/24 11:02 Imaging Radiology Impressions: ITS Impressions Head CT 08/25/24 11:33 IMPRESSION: No acute intracranial abnormality. Electronically signed by: Cj Colunga MD 08/25/2024 12:12 PM EST RP KUB X-Ray 10/28/24 09:50 IMPRESSION: Abundant stool without intestinal obstruction pattern. Electronically signed by: Audie Uribe MD 10/28/2024 10:02 AM EDT RP Medications Medications Current Medications Aripiprazole (Aripiprazole 30 Mg Tablet) 30 mg PO DAILY [facility] Last Admin: 11/25/24 08:13 Dose: 30 mg Benzocaine (Throat Lozenge, Medicated Lozenge) 1 lozenge MUCOUS MEM Q1H PRN PRN Reason: Sore Throat Last Admin: 09/01/24 06:09 Dose: 1 lozenge Guaifenesin/Dextromethorphan (Guaifenesin Dm 200/20/10 Ml 10 Ml Syrup) 10 ml PO Q4H PRN PRN Reason: Cough Last Admin: 08/30/24 05:47 Dose: 10 ml Levothyroxine Sodium (Levothyroxine Sodium 75 Mcg Tablet) 75 mcg PO DAILY@0600 [facility] Last Admin: 11/25/24 05:38 Dose: 75 mcg Lidocaine/Diphenhydr/Alum/Mg/Simeth (Mag&Al/Sim/Diphenhyd/Lidocaine 10 Ml Oral.Susp) 10 ml PO Q6H PRN; Protocol PRN Reason: Painful Gums Last Admin: 08/26/24 13:38 Dose: 10 ml Memantine (Memantine Hcl 5 Mg Tablet) 5 mg PO BID [facility] Last Admin: 11/25/24 08:13 Dose: 5 mg Olanzapine (Olanzapine Odt 10 Mg Tab.Rapdis) 5 mg TRANSLINGU Q6H PRN PRN Reason: Agitation Last Admin: 11/01/24 20:50 Dose: 5 mg Polyethylene Glycol (Polyethylene Glycol 3350 17 Gm Powd.Pack) 17 gm PO DAILY PRN PRN Reason: constipation Senna/Docusate Sodium (Sennosides/Docusate Sodium Tablet) 1 tab PO BID [facility] Last Admin: 11/25/24 08:13 Dose: 1 tab Vitamin D (Cholecalciferol (Vitamin D3) 25 Mcg Tablet) 50 mcg PO DAILY [facility] Last Admin: 11/25/24 08:13 Dose: 50 mcg Allergies Allergies Allergy/AdvReac Type Severity Reaction Status Date / Time meperidine [From Demerol] AdvReac Intermediate Rash Verified 08/23/24 19:34 morphine AdvReac Intermediate Rash Verified 08/23/24 19:35 Sulfa (Sulfonamide AdvReac Intermediate Rash Verified 08/23/24 19:36 Antibiotics) Assessment & Plan Assessment & Plan (1) Schizoaffective disorder: Status: Acute Code(s): F25.9 - Schizoaffective disorder, unspecified Plan Ms. Thomas is a 69 year-old woman with hx of Bipolar Disorder, she currently presents with several symptoms suggestive of negative symptoms seem usually in schizoaffective disorder including constricted affect, abulia (some acknowledgment that she needed to initiate certain activities like going to dentist but still not doing so for unclear reasons). No overt paranoid delusions, her delayed response may be signs of thought blocking and underlying psychosis. She is in agreement to receive treatment and complete work up to also assess her memory and cognition. 11/07 continue tx. awaiting placement. 11/08: stable presentation, awaiting placement. 11/09: no change, awaiting placement. 11/10: no change in presentation. stable. continue current mgmt. 11/11: stable. continue current mgmt. 11/12/2024: No changes to primary team's treatment plan 11/13/24: no changes 11/14 continue tx. 11/15 continue tx. 11/16: stable. no change in mgmt. 11/17 continue tx. 11/18: stable. no change in presentation or mgmt today. 11/19: continue current management and treatment plan. 11/20: continue current management and treatment plan. 11/21: continue current management and treatment plan. 11/22 increase namenda 5mg po BID, target abulia. 11/24: no change in presentation. continue current mgmt. 11/25: continue current mgmt. no change. Reason for continued inpatient stay Substantial Risk for: inability to function and rapid decompensation Time Spent With Patient Time: Total time managing care of this patient today ____ minutes.
[2024-11-25 20:00] VITALS: BP 177/58; PULSE 77; RESP 16; TEMP 36.5; O2SAT 96
[2024-11-26 08:00] VITALS: BP 131/57; PULSE 96; RESP 16; TEMP 36.8; O2SAT 96
[2024-11-26] MEDS: ARIPiprazole 30 MG TABLET PO (08:44)
--- NOTE | 2024-11-26 12:38 | P.PNPSI_ITS ---
Subjective Subjective Date of Service: 11/26/24 Reason For Visit: bipolar 1 disorder current or most recent epi Subjective Notes: Conditional Voluntary Interim History: Patient was seen and discussed in rounds today. Records and plans were reviewed. She has been mostly in her room but coming out for meals. No complaints or side effects. Moderate depression and anxiety present. Eating and sleeping adequately. No changes were made today Review of Systems Review of Systems Yes all other systems are reviewed and are negative Mental Status Exam Mental Status Exam Narrative: Appearance: adequately dressed and groomed Psychomotor: some retardation Speech: mostly clear, less latency, minimally spontaneous TP: [place] TC: no questions or complaints Mood: good Affect: Flat SI: none expressed HI: none expressed VH/AH: none evidenced Delusions: no overt delusional content noted or reported Insight/judgment: impaired . Diagnostics Vital Signs (24Hr): Vital Signs - 24 hr 11/25/24 20:00 11/26/24 08:00 Temperature 97.7 F 98.2 F Pulse Rate 77 96 Respiratory Rate 16 16 Blood Pressure 177/58 H 131/57 L Pulse Oximetry 96 96 Oxygen Delivery Method Room Air Room Air BMI result Body Mass Index 23.1 Labs 11/15/24 11:02 11/15/24 11:02 Imaging Radiology Impressions: ITS Impressions Head CT 08/25/24 11:33 IMPRESSION: No acute intracranial abnormality. Electronically signed by: Cj Colunga MD 08/25/2024 12:12 PM EST RP KUB X-Ray 10/28/24 09:50 IMPRESSION: Abundant stool without intestinal obstruction pattern. Electronically signed by: Audie Uribe MD 10/28/2024 10:02 AM EDT RP Medications Medications Current Medications Aripiprazole (Aripiprazole 30 Mg Tablet) 30 mg PO DAILY [facility] Last Admin: 11/26/24 08:44 Dose: 30 mg Benzocaine (Throat Lozenge, Medicated Lozenge) 1 lozenge MUCOUS MEM Q1H PRN PRN Reason: Sore Throat Last Admin: 09/01/24 06:09 Dose: 1 lozenge Guaifenesin/Dextromethorphan (Guaifenesin Dm 200/20/10 Ml 10 Ml Syrup) 10 ml PO Q4H PRN PRN Reason: Cough Last Admin: 08/30/24 05:47 Dose: 10 ml Levothyroxine Sodium (Levothyroxine Sodium 75 Mcg Tablet) 75 mcg PO DAILY@0600 [facility] Last Admin: 11/26/24 05:43 Dose: 75 mcg Lidocaine/Diphenhydr/Alum/Mg/Simeth (Mag&Al/Sim/Diphenhyd/Lidocaine 10 Ml Oral.Susp) 10 ml PO Q6H PRN; Protocol PRN Reason: Painful Gums Last Admin: 08/26/24 13:38 Dose: 10 ml Memantine (Memantine Hcl 5 Mg Tablet) 5 mg PO BID [facility] Last Admin: 11/26/24 08:44 Dose: 5 mg Olanzapine (Olanzapine Odt 10 Mg Tab.Rapdis) 5 mg TRANSLINGU Q6H PRN PRN Reason: Agitation Last Admin: 11/01/24 20:50 Dose: 5 mg Polyethylene Glycol (Polyethylene Glycol 3350 17 Gm Powd.Pack) 17 gm PO DAILY PRN PRN Reason: constipation Senna/Docusate Sodium (Sennosides/Docusate Sodium Tablet) 1 tab PO BID [facility] Last Admin: 11/26/24 08:44 Dose: 1 tab Vitamin D (Cholecalciferol (Vitamin D3) 25 Mcg Tablet) 50 mcg PO DAILY [facility] Last Admin: 11/26/24 08:44 Dose: 50 mcg Allergies Allergies Allergy/AdvReac Type Severity Reaction Status Date / Time meperidine [From Demerol] AdvReac Intermediate Rash Verified 08/23/24 19:34 morphine AdvReac Intermediate Rash Verified 08/23/24 19:35 Sulfa (Sulfonamide AdvReac Intermediate Rash Verified 08/23/24 19:36 Antibiotics) Assessment & Plan Assessment & Plan (1) Schizoaffective disorder: Status: Acute Code(s): F25.9 - Schizoaffective disorder, unspecified Plan Ms. Thomas is a 69 year-old woman with hx of Bipolar Disorder, she currently presents with several symptoms suggestive of negative symptoms seem usually in schizoaffective disorder including constricted affect, abulia (some acknowledgment that she needed to initiate certain activities like going to dentist but still not doing so for unclear reasons). No overt paranoid delusions, her delayed response may be signs of thought blocking and underlying psychosis. She is in agreement to receive treatment and complete work up to also assess her memory and cognition. 11/07 continue tx. awaiting placement. 11/08: stable presentation, awaiting placement. 11/09: no change, awaiting placement. 11/10: no change in presentation. stable. continue current mgmt. 11/11: stable. continue current mgmt. 11/12/2024: No changes to primary team's treatment plan 11/13/24: no changes 11/14 continue tx. 11/15 continue tx. 11/16: stable. no change in mgmt. 11/17 continue tx. 11/18: stable. no change in presentation or mgmt today. 11/19: continue current management and treatment plan. 11/20: continue current management and treatment plan. 11/21: continue current management and treatment plan. 11/22 increase namenda 5mg po BID, target abulia. 11/24: no change in presentation. continue current mgmt. 11/25: continue current mgmt. no change. 11/26: Continue current regimen and plans. Reason for continued inpatient stay Substantial Risk for: inability to function Time Spent With Patient Time: Total time managing care of this patient today ____ minutes.
[2024-11-26 20:00] VITALS: BP 120/67; PULSE 65; RESP 16; TEMP 36.6; O2SAT 96
[2024-11-27 08:00] VITALS: BP 113/57; PULSE 75; RESP 16; TEMP 36.6; O2SAT 97
[2024-11-27] MEDS: ARIPiprazole 30 MG TABLET PO (08:35)
--- NOTE | 2024-11-27 11:23 | P.PNPSI_ITS ---
Subjective Subjective Date of Service: 11/27/24 Reason For Visit: bipolar 1 disorder current or most recent epi Subjective Notes: Conditional Voluntary Interim History: Patient was seen and discussed in rounds today. Records and plans were reviewed. She continues to be isolative and mostly lying on her bed. Medication compliant. No anxiety and depression. No SI. No behavioral issues. No changes were Review of Systems Review of Systems Yes all other systems are reviewed and are negative Mental Status Exam Mental Status Exam Narrative: Appearance: adequately dressed and groomed Psychomotor: some retardation Speech: mostly clear, less latency, minimally spontaneous TP: [place] TC: no questions or complaints Mood: good Affect: Flat SI: none expressed HI: none expressed VH/AH: none evidenced Delusions: no overt delusional content noted or reported Insight/judgment: impaired . Diagnostics Vital Signs (24Hr): Vital Signs - 24 hr 11/26/24 20:00 11/27/24 08:00 Temperature 98 F 97.9 F Pulse Rate 65 75 Respiratory Rate 16 16 Blood Pressure 120/67 113/57 L Pulse Oximetry 96 97 Oxygen Delivery Method Room Air Room Air BMI result Body Mass Index 23.1 Labs 11/15/24 11:02 11/15/24 11:02 Imaging Radiology Impressions: ITS Impressions Head CT 08/25/24 11:33 IMPRESSION: No acute intracranial abnormality. Electronically signed by: Cj Colunga MD 08/25/2024 12:12 PM EST RP KUB X-Ray 10/28/24 09:50 IMPRESSION: Abundant stool without intestinal obstruction pattern. Electronically signed by: Audie Uribe MD 10/28/2024 10:02 AM EDT RP Medications Medications Current Medications Aripiprazole (Aripiprazole 30 Mg Tablet) 30 mg PO DAILY [facility] Last Admin: 11/27/24 08:35 Dose: 30 mg Benzocaine (Throat Lozenge, Medicated Lozenge) 1 lozenge MUCOUS MEM Q1H PRN PRN Reason: Sore Throat Last Admin: 09/01/24 06:09 Dose: 1 lozenge Guaifenesin/Dextromethorphan (Guaifenesin Dm 200/20/10 Ml 10 Ml Syrup) 10 ml PO Q4H PRN PRN Reason: Cough Last Admin: 08/30/24 05:47 Dose: 10 ml Levothyroxine Sodium (Levothyroxine Sodium 75 Mcg Tablet) 75 mcg PO DAILY@0600 [facility] Last Admin: 11/27/24 06:26 Dose: 75 mcg Lidocaine/Diphenhydr/Alum/Mg/Simeth (Mag&Al/Sim/Diphenhyd/Lidocaine 10 Ml Oral.Susp) 10 ml PO Q6H PRN; Protocol PRN Reason: Painful Gums Last Admin: 08/26/24 13:38 Dose: 10 ml Memantine (Memantine Hcl 5 Mg Tablet) 5 mg PO BID [facility] Last Admin: 11/27/24 08:35 Dose: 5 mg Olanzapine (Olanzapine Odt 10 Mg Tab.Rapdis) 5 mg TRANSLINGU Q6H PRN PRN Reason: Agitation Last Admin: 11/01/24 20:50 Dose: 5 mg Polyethylene Glycol (Polyethylene Glycol 3350 17 Gm Powd.Pack) 17 gm PO DAILY PRN PRN Reason: constipation Senna/Docusate Sodium (Sennosides/Docusate Sodium Tablet) 1 tab PO BID [facility] Last Admin: 11/27/24 08:35 Dose: 1 tab Vitamin D (Cholecalciferol (Vitamin D3) 25 Mcg Tablet) 50 mcg PO DAILY [facility] Last Admin: 11/27/24 08:35 Dose: 50 mcg Allergies Allergies Allergy/AdvReac Type Severity Reaction Status Date / Time meperidine [From Demerol] AdvReac Intermediate Rash Verified 08/23/24 19:34 morphine AdvReac Intermediate Rash Verified 08/23/24 19:35 Sulfa (Sulfonamide AdvReac Intermediate Rash Verified 08/23/24 19:36 Antibiotics) Assessment & Plan Assessment & Plan (1) Schizoaffective disorder: Status: Acute Code(s): F25.9 - Schizoaffective disorder, unspecified Plan Ms. Thomas is a 69 year-old woman with hx of Bipolar Disorder, she currently presents with several symptoms suggestive of negative symptoms seem usually in schizoaffective disorder including constricted affect, abulia (some acknowledgment that she needed to initiate certain activities like going to dentist but still not doing so for unclear reasons). No overt paranoid delusions, her delayed response may be signs of thought blocking and underlying psychosis. She is in agreement to receive treatment and complete work up to also assess her memory and cognition. 11/07 continue tx. awaiting placement. 11/08: stable presentation, awaiting placement. 11/09: no change, awaiting placement. 11/10: no change in presentation. stable. continue current mgmt. 11/11: stable. continue current mgmt. 11/12/2024: No changes to primary team's treatment plan 11/13/24: no changes 11/14 continue tx. 11/15 continue tx. 11/16: stable. no change in mgmt. 11/17 continue tx. 11/18: stable. no change in presentation or mgmt today. 11/19: continue current management and treatment plan. 11/20: continue current management and treatment plan. 11/21: continue current management and treatment plan. 11/22 increase namenda 5mg po BID, target abulia. 11/24: no change in presentation. continue current mgmt. 11/25: continue current mgmt. no change. 11/26: Continue current regimen and plans. 11/27: Continue current regimen and plans. Reason for continued inpatient stay Substantial Risk for: inability to function Time Spent With Patient Time: Total time managing care of this patient today ____ minutes.
[2024-11-27 20:00] VITALS: BP 113/88; PULSE 63; TEMP 36.2; O2SAT 96
[2024-11-28 08:00] VITALS: BP 174/82; PULSE 117; RESP 16; TEMP 36.9; O2SAT 98
[2024-11-28] MEDS: ARIPiprazole 30 MG TABLET PO (08:29)
--- NOTE | 2024-11-28 11:10 | P.PNPSI_ITS ---
Subjective Subjective Date of Service: 11/28/24 Reason For Visit: bipolar 1 disorder current or most recent epi Subjective Notes: Conditional Voluntary Healthcare Proxy: Yes Interim History: Pt mostly in bed, visible for meals. No SI/HI. No overt delusional content. taking medications as prescribed. Medication Compliance: Yes Review of Systems Review of Systems Unremarkable Yes all other systems are reviewed and are negative Mental Status Exam Mental Status Exam Narrative: Appearance: adequately dressed and groomed Psychomotor: some retardation Speech: mostly clear, less latency, minimally spontaneous TP: [place] TC: no questions or complaints Mood: good Affect: Flat SI: none expressed HI: none expressed VH/AH: none evidenced Delusions: no overt delusional content noted or reported Insight/judgment: impaired . Diagnostics Vital Signs (24Hr): Vital Signs - 24 hr 11/27/24 20:00 11/28/24 08:00 Temperature 97.2 F 98.4 F Pulse Rate 63 117 H Respiratory Rate 16 Blood Pressure 113/88 174/82 H Pulse Oximetry 96 98 Oxygen Delivery Method Room Air Room Air BMI result Body Mass Index 23.1 Labs 11/15/24 11:02 11/15/24 11:02 Imaging Radiology Impressions: ITS Impressions Head CT 08/25/24 11:33 IMPRESSION: No acute intracranial abnormality. Electronically signed by: Cj Colunga MD 08/25/2024 12:12 PM EST RP KUB X-Ray 10/28/24 09:50 IMPRESSION: Abundant stool without intestinal obstruction pattern. Electronically signed by: Audie Uribe MD 10/28/2024 10:02 AM EDT RP Medications Medications Current Medications Aripiprazole (Aripiprazole 30 Mg Tablet) 30 mg PO DAILY [facility] Last Admin: 11/28/24 08:29 Dose: 30 mg Benzocaine (Throat Lozenge, Medicated Lozenge) 1 lozenge MUCOUS MEM Q1H PRN PRN Reason: Sore Throat Last Admin: 09/01/24 06:09 Dose: 1 lozenge Guaifenesin/Dextromethorphan (Guaifenesin Dm 200/20/10 Ml 10 Ml Syrup) 10 ml PO Q4H PRN PRN Reason: Cough Last Admin: 08/30/24 05:47 Dose: 10 ml Levothyroxine Sodium (Levothyroxine Sodium 75 Mcg Tablet) 75 mcg PO DAILY@0600 [facility] Last Admin: 11/28/24 05:55 Dose: 75 mcg Lidocaine/Diphenhydr/Alum/Mg/Simeth (Mag&Al/Sim/Diphenhyd/Lidocaine 10 Ml Oral.Susp) 10 ml PO Q6H PRN; Protocol PRN Reason: Painful Gums Last Admin: 08/26/24 13:38 Dose: 10 ml Memantine (Memantine Hcl 5 Mg Tablet) 5 mg PO BID [facility] Last Admin: 11/28/24 08:30 Dose: 5 mg Olanzapine (Olanzapine Odt 10 Mg Tab.Rapdis) 5 mg TRANSLINGU Q6H PRN PRN Reason: Agitation Last Admin: 11/01/24 20:50 Dose: 5 mg Polyethylene Glycol (Polyethylene Glycol 3350 17 Gm Powd.Pack) 17 gm PO DAILY PRN PRN Reason: constipation Senna/Docusate Sodium (Sennosides/Docusate Sodium Tablet) 1 tab PO BID [facility] Last Admin: 11/28/24 08:30 Dose: 1 tab Vitamin D (Cholecalciferol (Vitamin D3) 25 Mcg Tablet) 50 mcg PO DAILY [facility] Last Admin: 11/28/24 08:30 Dose: 50 mcg Allergies Allergies Allergy/AdvReac Type Severity Reaction Status Date / Time meperidine [From Demerol] AdvReac Intermediate Rash Verified 08/23/24 19:34 morphine AdvReac Intermediate Rash Verified 08/23/24 19:35 Sulfa (Sulfonamide AdvReac Intermediate Rash Verified 08/23/24 19:36 Antibiotics) Assessment & Plan Assessment & Plan (1) Schizoaffective disorder: Status: Acute Code(s): F25.9 - Schizoaffective disorder, unspecified Plan Ms. Thomas is a 69 year-old woman with hx of Bipolar Disorder, she currently presents with several symptoms suggestive of negative symptoms seem usually in schizoaffective disorder including constricted affect, abulia (some acknowledgment that she needed to initiate certain activities like going to dentist but still not doing so for unclear reasons). No overt paranoid delusions, her delayed response may be signs of thought blocking and underlying psychosis. She is in agreement to receive treatment and complete work up to also assess her memory and cognition. 11/07 continue tx. awaiting placement. 11/08: stable presentation, awaiting placement. 11/09: no change, awaiting placement. 11/10: no change in presentation. stable. continue current mgmt. 11/11: stable. continue current mgmt. 11/12/2024: No changes to primary team's treatment plan 11/13/24: no changes 11/14 continue tx. 11/15 continue tx. 11/16: stable. no change in mgmt. 11/17 continue tx. 11/18: stable. no change in presentation or mgmt today. 11/19: continue current management and treatment plan. 11/20: continue current management and treatment plan. 11/21: continue current management and treatment plan. 11/22 increase namenda 5mg po BID, target abulia. 11/24: no change in presentation. continue current mgmt. 11/25: continue current mgmt. no change. 11/26: Continue current regimen and plans. 11/27: Continue current regimen and plans. 11/28 continue tx. Reason for continued inpatient stay Substantial Risk for: inability to function Time Spent With Patient Time: Total time managing care of this patient today ____ minutes.
[2024-11-28 20:00] VITALS: BP 116/78; PULSE 67; RESP 16; TEMP 36.8; O2SAT 95
[2024-11-29 08:00] VITALS: BP 117/58; PULSE 80; RESP 16; TEMP 36.8; O2SAT 99
[2024-11-29] MEDS: ARIPiprazole 30 MG TABLET PO (08:47)
--- NOTE | 2024-11-29 16:06 | P.PNPSI_ITS ---
Subjective Subjective Date of Service: 11/29/24 Reason For Visit: bipolar 1 disorder current or most recent epi Subjective Notes: Conditional Voluntary Healthcare Proxy: Yes Interim History: Pt mostly in bed, visible for meals. No SI/HI. No overt delusional content. taking medications as prescribed. Review of Systems Review of Systems Unremarkable Yes all other systems are reviewed and are negative Mental Status Exam Mental Status Exam Narrative: Appearance: adequately dressed and groomed Psychomotor: some retardation Speech: mostly clear, less latency, minimally spontaneous TP: [place] TC: no questions or complaints Mood: good Affect: Flat SI: none expressed HI: none expressed VH/AH: none evidenced Delusions: no overt delusional content noted or reported Insight/judgment: impaired x2. Diagnostics Vital Signs (24Hr): Vital Signs - 24 hr 11/28/24 20:00 11/29/24 08:00 Temperature 98.2 F 98.2 F Pulse Rate 67 80 Respiratory Rate 16 16 Blood Pressure 116/78 117/58 L Pulse Oximetry 95 99 Oxygen Delivery Method Room Air Room Air BMI result Body Mass Index 23.1 Labs 11/15/24 11:02 11/15/24 11:02 Imaging Radiology Impressions: ITS Impressions Head CT 08/25/24 11:33 IMPRESSION: No acute intracranial abnormality. Electronically signed by: Cj Colunga MD 08/25/2024 12:12 PM EST RP KUB X-Ray 10/28/24 09:50 IMPRESSION: Abundant stool without intestinal obstruction pattern. Electronically signed by: Audie Uribe MD 10/28/2024 10:02 AM EDT RP Medications Medications Current Medications Aripiprazole (Aripiprazole 30 Mg Tablet) 30 mg PO DAILY [facility] Last Admin: 11/29/24 08:47 Dose: 30 mg Benzocaine (Throat Lozenge, Medicated Lozenge) 1 lozenge MUCOUS MEM Q1H PRN PRN Reason: Sore Throat Last Admin: 09/01/24 06:09 Dose: 1 lozenge Guaifenesin/Dextromethorphan (Guaifenesin Dm 200/20/10 Ml 10 Ml Syrup) 10 ml PO Q4H PRN PRN Reason: Cough Last Admin: 08/30/24 05:47 Dose: 10 ml Levothyroxine Sodium (Levothyroxine Sodium 75 Mcg Tablet) 75 mcg PO DAILY@0600 COUNTS [facility]CLUDE 234 BEDS AT [facility] Last Admin: 11/29/24 06:10 Dose: 75 mcg Lidocaine/Diphenhydr/Alum/Mg/Simeth (Mag&Al/Sim/Diphenhyd/Lidocaine 10 Ml Oral.Susp) 10 ml PO Q6H PRN; Protocol PRN Reason: Painful Gums Last Admin: 08/26/24 13:38 Dose: 10 ml Memantine (Memantine Hcl 5 Mg Tablet) 5 mg PO BID COUNTS [facility]CLUDE 234 BEDS AT [facility] Last Admin: 11/29/24 08:47 Dose: 5 mg Olanzapine (Olanzapine Odt 10 Mg Tab.Rapdis) 5 mg TRANSLINGU Q6H PRN PRN Reason: Agitation Last Admin: 11/01/24 20:50 Dose: 5 mg Polyethylene Glycol (Polyethylene Glycol 3350 17 Gm Powd.Pack) 17 gm PO DAILY PRN PRN Reason: constipation Senna/Docusate Sodium (Sennosides/Docusate Sodium Tablet) 1 tab PO BID COUNTS [facility]CLUDE 234 BEDS AT [facility] Last Admin: 11/29/24 08:47 Dose: 1 tab Vitamin D (Cholecalciferol (Vitamin D3) 25 Mcg Tablet) 50 mcg PO DAILY COUNTS [facility]CLUDE 234 BEDS AT [facility] Last Admin: 11/29/24 08:46 Dose: 50 mcg Allergies Allergies Allergy/AdvReac Type Severity Reaction Status Date / Time meperidine [From Demerol] AdvReac Intermediate Rash Verified 08/23/24 19:34 morphine AdvReac Intermediate Rash Verified 08/23/24 19:35 Sulfa (Sulfonamide AdvReac Intermediate Rash Verified 08/23/24 19:36 Antibiotics) Assessment & Plan Assessment & Plan (1) Schizoaffective disorder: Status: Acute Code(s): F25.9 - Schizoaffective disorder, unspecified Plan Ms. Thomas is a 69 year-old woman with hx of Bipolar Disorder, she currently presents with several symptoms suggestive of negative symptoms seem usually in schizoaffective disorder including constricted affect, abulia (some acknowledgment that she needed to initiate certain activities like going to dentist but still not doing so for unclear reasons). No overt paranoid delusions, her delayed response may be signs of thought blocking and underlying psychosis. She is in agreement to receive treatment and complete work up to also assess her memory and cognition. 11/07 continue tx. awaiting placement. 11/08: stable presentation, awaiting placement. 11/09: no change, awaiting placement. 11/10: no change in presentation. stable. continue current mgmt. 11/11: stable. continue current mgmt. 11/12/2024: No changes to primary team's treatment plan 11/13/24: no changes 11/14 continue tx. 11/15 continue tx. 11/16: stable. no change in mgmt. 11/17 continue tx. 11/18: stable. no change in presentation or mgmt today. 11/19: continue current management and treatment plan. 11/20: continue current management and treatment plan. 11/21: continue current management and treatment plan. 11/22 increase namenda 5mg po BID, target abulia. 11/24: no change in presentation. continue current mgmt. 11/25: continue current mgmt. no change. 11/26: Continue current regimen and plans. 11/27: Continue current regimen and plans. 11/28 continue tx. 11/29 continue tx. Reason for continued inpatient stay Substantial Risk for: inability to function Time Spent With Patient Time: Total time managing care of this patient today ____ minutes.
[2024-11-29 20:00] VITALS: BP 124/60; PULSE 72; RESP 16; TEMP 36.9; O2SAT 95
[2024-11-30 08:40] VITALS: BP 147/76; PULSE 110; RESP 18; TEMP 36.7; O2SAT 96
[2024-11-30] MEDS: ARIPiprazole 30 MG TABLET PO (09:25)
--- NOTE | 2024-11-30 13:27 | P.PNPSI_ITS ---
Subjective Subjective Date of Service: 11/30/24 Reason For Visit: bipolar 1 disorder current or most recent epi Interim History: no change in presentation. per staff, withdrawn, eating well. no issues. not attending groups. Mental Status Exam Mental Status Exam Narrative: Appearance: adequately dressed and groomed Psychomotor: some retardation Speech: mostly clear, less latency, minimally spontaneous TP: [place] TC: no questions or complaints Mood: good Affect: Flat SI: none expressed HI: none expressed VH/AH: none evidenced Delusions: no overt delusional content noted or reported Insight/judgment: impaired . Diagnostics Vital Signs (24Hr): Vital Signs - 24 hr 11/29/24 20:00 11/30/24 08:40 Temperature 98.4 F 98.1 F Pulse Rate 72 110 H Respiratory Rate 16 18 Blood Pressure 124/60 147/76 H Pulse Oximetry 95 96 Oxygen Delivery Method Room Air BMI result Body Mass Index 23.1 Labs 11/15/24 11:02 11/15/24 11:02 Imaging Radiology Impressions: ITS Impressions Head CT 08/25/24 11:33 IMPRESSION: No acute intracranial abnormality. Electronically signed by: Cj Colunga MD 08/25/2024 12:12 PM EST RP KUB X-Ray 10/28/24 09:50 IMPRESSION: Abundant stool without intestinal obstruction pattern. Electronically signed by: Audie Uribe MD 10/28/2024 10:02 AM EDT RP Medications Medications Current Medications Aripiprazole (Aripiprazole 30 Mg Tablet) 30 mg PO DAILY [facility] Last Admin: 11/30/24 09:25 Dose: 30 mg Benzocaine (Throat Lozenge, Medicated Lozenge) 1 lozenge MUCOUS MEM Q1H PRN PRN Reason: Sore Throat Last Admin: 09/01/24 06:09 Dose: 1 lozenge Guaifenesin/Dextromethorphan (Guaifenesin Dm 200/20/10 Ml 10 Ml Syrup) 10 ml PO Q4H PRN PRN Reason: Cough Last Admin: 08/30/24 05:47 Dose: 10 ml Levothyroxine Sodium (Levothyroxine Sodium 75 Mcg Tablet) 75 mcg PO DAILY@0600 [facility] Last Admin: 11/30/24 06:04 Dose: 75 mcg Lidocaine/Diphenhydr/Alum/Mg/Simeth (Mag&Al/Sim/Diphenhyd/Lidocaine 10 Ml Oral.Susp) 10 ml PO Q6H PRN; Protocol PRN Reason: Painful Gums Last Admin: 08/26/24 13:38 Dose: 10 ml Memantine (Memantine Hcl 5 Mg Tablet) 5 mg PO BID [facility] Last Admin: 11/30/24 09:25 Dose: 5 mg Olanzapine (Olanzapine Odt 10 Mg Tab.Rapdis) 5 mg TRANSLINGU Q6H PRN PRN Reason: Agitation Last Admin: 11/01/24 20:50 Dose: 5 mg Polyethylene Glycol (Polyethylene Glycol 3350 17 Gm Powd.Pack) 17 gm PO DAILY PRN PRN Reason: constipation Senna/Docusate Sodium (Sennosides/Docusate Sodium Tablet) 1 tab PO BID [facility] Last Admin: 11/30/24 09:25 Dose: 1 tab Vitamin D (Cholecalciferol (Vitamin D3) 25 Mcg Tablet) 50 mcg PO DAILY [facility] Last Admin: 11/30/24 09:24 Dose: 50 mcg Allergies Allergies Allergy/AdvReac Type Severity Reaction Status Date / Time meperidine [From Demerol] AdvReac Intermediate Rash Verified 08/23/24 19:34 morphine AdvReac Intermediate Rash Verified 08/23/24 19:35 Sulfa (Sulfonamide AdvReac Intermediate Rash Verified 08/23/24 19:36 Antibiotics) Assessment & Plan Assessment & Plan (1) Schizoaffective disorder: Status: Acute Code(s): F25.9 - Schizoaffective disorder, unspecified Plan Ms. Thomas is a 69 year-old woman with hx of Bipolar Disorder, she currently presents with several symptoms suggestive of negative symptoms seem usually in schizoaffective disorder including constricted affect, abulia (some acknowledgment that she needed to initiate certain activities like going to dentist but still not doing so for unclear reasons). No overt paranoid delusions, her delayed response may be signs of thought blocking and underlying psychosis. She is in agreement to receive treatment and complete work up to also assess her memory and cognition. 11/07 continue tx. awaiting placement. 11/08: stable presentation, awaiting placement. 11/09: no change, awaiting placement. 11/10: no change in presentation. stable. continue current mgmt. 11/11: stable. continue current mgmt. 11/12/2024: No changes to primary team's treatment plan 11/13/24: no changes 11/14 continue tx. 11/15 continue tx. 11/16: stable. no change in mgmt. 11/17 continue tx. 11/18: stable. no change in presentation or mgmt today. 11/19: continue current management and treatment plan. 11/20: continue current management and treatment plan. 11/21: continue current management and treatment plan. 11/22 increase namenda 5mg po BID, target abulia. 11/24: no change in presentation. continue current mgmt. 11/25: continue current mgmt. no change. 11/26: Continue current regimen and plans. 11/27: Continue current regimen and plans. 11/28 continue tx. 11/29 continue tx. 11/30: no change in presentation. continue current mgmt. Reason for continued inpatient stay Substantial Risk for: inability to function and rapid decompensation Time Spent With Patient Time: Total time managing care of this patient today ____ minutes.
[2024-11-30 20:00] VITALS: BP 115/57; PULSE 79; RESP 18; TEMP 36.7; O2SAT 96
[2024-12-01 08:00] VITALS: BP 129/59; PULSE 79; RESP 16; TEMP 36.7; O2SAT 98
[2024-12-01] MEDS: ARIPiprazole 30 MG TABLET PO (08:45)
[2024-12-01 11:23] VITALS: BMI 22.6
[2024-12-01 20:00] VITALS: BP 120/60; PULSE 89; RESP 18; TEMP 36.7; O2SAT 96
[2024-12-02 08:00] VITALS: BP 134/86; PULSE 96; RESP 16; TEMP 36.4; O2SAT 95
[2024-12-02] MEDS: ARIPiprazole 30 MG TABLET PO (08:50)
--- NOTE | 2024-12-02 10:41 | HO.PSYCHPN ---
Subjective Subjective Date of Service: 12/01/24 Reason For Visit: bipolar 1 disorder current or most recent epi Subjective Notes: Conditional Voluntary Healthcare Proxy: Yes Interim History: Pt slept all night. She is taking medications as prescribed. She is mostly in bed, not very social with [facility] or staff. Goes out for meals. No behavioral concerns. Medication Compliance: Yes Review of Systems Review of Systems Unremarkable Yes all other systems are reviewed and are negative Mental Status Exam Mental Status Exam Narrative: Appearance: adequately dressed and groomed Psychomotor: some retardation Speech: mostly clear, less latency, minimally spontaneous TP: [place] TC: no questions or complaints Mood: good Affect: Flat SI: none expressed HI: none expressed VH/AH: none evidenced Delusions: no overt delusional content noted or reported Insight/judgment: impaired . Diagnostics Vital Signs (24Hr): Vital Signs - 24 hr 12/01/24 20:00 12/02/24 08:00 Temperature 98.1 F 97.5 F Pulse Rate 89 96 Respiratory Rate 18 16 Blood Pressure 120/60 134/86 Pulse Oximetry 96 95 Oxygen Delivery Method Room Air Room Air BMI result Body Mass Index 22.6 Labs 11/15/24 11:02 11/15/24 11:02 Imaging Radiology Impressions: ITS Impressions Head CT 08/25/24 11:33 IMPRESSION: No acute intracranial abnormality. Electronically signed by: Cj Colunga MD 08/25/2024 12:12 PM EST RP KUB X-Ray 10/28/24 09:50 IMPRESSION: Abundant stool without intestinal obstruction pattern. Electronically signed by: Audie Uribe MD 10/28/2024 10:02 AM EDT RP Medications Medications Current Medications Aripiprazole (Aripiprazole 30 Mg Tablet) 30 mg PO DAILY [facility] Last Admin: 12/02/24 08:50 Dose: 30 mg Benzocaine (Throat Lozenge, Medicated Lozenge) 1 lozenge MUCOUS MEM Q1H PRN PRN Reason: Sore Throat Last Admin: 09/01/24 06:09 Dose: 1 lozenge Guaifenesin/Dextromethorphan (Guaifenesin Dm 200/20/10 Ml 10 Ml Syrup) 10 ml PO Q4H PRN PRN Reason: Cough Last Admin: 08/30/24 05:47 Dose: 10 ml Levothyroxine Sodium (Levothyroxine Sodium 75 Mcg Tablet) 75 mcg PO DAILY@0600 [facility] Last Admin: 12/02/24 05:55 Dose: 75 mcg Lidocaine/Diphenhydr/Alum/Mg/Simeth (Mag&Al/Sim/Diphenhyd/Lidocaine 10 Ml Oral.Susp) 10 ml PO Q6H PRN; Protocol PRN Reason: Painful Gums Last Admin: 08/26/24 13:38 Dose: 10 ml Memantine (Memantine Hcl 5 Mg Tablet) 5 mg PO BID [facility] Last Admin: 12/02/24 08:50 Dose: 5 mg Olanzapine (Olanzapine Odt 10 Mg Tab.Rapdis) 5 mg TRANSLINGU Q6H PRN PRN Reason: Agitation Last Admin: 11/01/24 20:50 Dose: 5 mg Polyethylene Glycol (Polyethylene Glycol 3350 17 Gm Powd.Pack) 17 gm PO DAILY PRN PRN Reason: constipation Senna/Docusate Sodium (Sennosides/Docusate Sodium Tablet) 1 tab PO BID [facility] Last Admin: 12/02/24 08:50 Dose: 1 tab Vitamin D (Cholecalciferol (Vitamin D3) 25 Mcg Tablet) 50 mcg PO DAILY [facility] Last Admin: 12/02/24 08:50 Dose: 50 mcg Allergies Allergies Allergy/AdvReac Type Severity Reaction Status Date / Time meperidine [From Demerol] AdvReac Intermediate Rash Verified 08/23/24 19:34 morphine AdvReac Intermediate Rash Verified 08/23/24 19:35 Sulfa (Sulfonamide AdvReac Intermediate Rash Verified 08/23/24 19:36 Antibiotics) Assessment & Plan Assessment & Plan (1) Schizoaffective disorder: Status: Acute Code(s): F25.9 - Schizoaffective disorder, unspecified Plan Ms. Thomas is a 69 year-old woman with hx of Bipolar Disorder, she currently presents with several symptoms suggestive of negative symptoms seem usually in schizoaffective disorder including constricted affect, abulia (some acknowledgment that she needed to initiate certain activities like going to dentist but still not doing so for unclear reasons). No overt paranoid delusions, her delayed response may be signs of thought blocking and underlying psychosis. She is in agreement to receive treatment and complete work up to also assess her memory and cognition. 11/07 continue tx. awaiting placement. 11/08: stable presentation, awaiting placement. 11/09: no change, awaiting placement. 11/10: no change in presentation. stable. continue current mgmt. 11/11: stable. continue current mgmt. 11/12/2024: No changes to primary team's treatment plan 11/13/24: no changes 11/14 continue tx. 11/15 continue tx. 11/16: stable. no change in mgmt. 11/17 continue tx. 11/18: stable. no change in presentation or mgmt today. 11/19: continue current management and treatment plan. 11/20: continue current management and treatment plan. 11/21: continue current management and treatment plan. 11/22 increase namenda 5mg po BID, target abulia. 11/24: no change in presentation. continue current mgmt. 11/25: continue current mgmt. no change. 11/26: Continue current regimen and plans. 11/27: Continue current regimen and plans. 11/28 continue tx. 11/29 continue tx. 11/30: no change in presentation. continue current mgmt. 12/01 continue tx. Reason for continued inpatient stay Substantial Risk for: inability to function Time Spent With Patient Time: Total time managing care of this patient today ____ minutes.
--- NOTE | 2024-12-02 10:43 | HO.PSYCHPN ---
Subjective Subjective Date of Service: 12/02/24 Reason For Visit: bipolar 1 disorder current or most recent epi Interim History: Pt slept all night. She is taking medications as prescribed. She is mostly in bed, not very social with [facility] or staff. Goes out for meals. No behavioral concerns. Review of Systems Review of Systems Unremarkable Yes all other systems are reviewed and are negative Mental Status Exam Mental Status Exam Narrative: Appearance: adequately dressed and groomed Psychomotor: some retardation Speech: mostly clear, less latency, minimally spontaneous TP: [place] TC: no questions or complaints Mood: good Affect: Flat SI: none expressed HI: none expressed VH/AH: none evidenced Delusions: no overt delusional content noted or reported Insight/judgment: impaired . Diagnostics Vital Signs (24Hr): Vital Signs - 24 hr 12/01/24 20:00 12/02/24 08:00 Temperature 98.1 F 97.5 F Pulse Rate 89 96 Respiratory Rate 18 16 Blood Pressure 120/60 134/86 Pulse Oximetry 96 95 Oxygen Delivery Method Room Air Room Air BMI result Body Mass Index 22.6 Labs 11/15/24 11:02 11/15/24 11:02 Imaging Radiology Impressions: [facility] Impressions Head CT 08/25/24 11:33 IMPRESSION: No acute intracranial abnormality. Electronically signed by: Cj Colunga MD 08/25/2024 12:12 PM EST RP KUB X-Ray 10/28/24 09:50 IMPRESSION: Abundant stool without intestinal obstruction pattern. Electronically signed by: Audie Uribe MD 10/28/2024 10:02 AM EDT RP Medications Medications Current Medications Aripiprazole (Aripiprazole 30 Mg Tablet) 30 mg PO DAILY [facility] Last Admin: 12/02/24 08:50 Dose: 30 mg Benzocaine (Throat Lozenge, Medicated Lozenge) 1 lozenge MUCOUS MEM Q1H PRN PRN Reason: Sore Throat Last Admin: 09/01/24 06:09 Dose: 1 lozenge Guaifenesin/Dextromethorphan (Guaifenesin Dm 200/20/10 Ml 10 Ml Syrup) 10 ml PO Q4H PRN PRN Reason: Cough Last Admin: 08/30/24 05:47 Dose: 10 ml Levothyroxine Sodium (Levothyroxine Sodium 75 Mcg Tablet) 75 mcg PO DAILY@0600 [facility] Last Admin: 12/02/24 05:55 Dose: 75 mcg Lidocaine/Diphenhydr/Alum/Mg/Simeth (Mag&Al/Sim/Diphenhyd/Lidocaine 10 Ml Oral.Susp) 10 ml PO Q6H PRN; Protocol PRN Reason: Painful Gums Last Admin: 08/26/24 13:38 Dose: 10 ml Memantine (Memantine Hcl 5 Mg Tablet) 5 mg PO BID [facility] Last Admin: 12/02/24 08:50 Dose: 5 mg Olanzapine (Olanzapine Odt 10 Mg Tab.Rapdis) 5 mg TRANSLINGU Q6H PRN PRN Reason: Agitation Last Admin: 11/01/24 20:50 Dose: 5 mg Polyethylene Glycol (Polyethylene Glycol 3350 17 Gm Powd.Pack) 17 gm PO DAILY PRN PRN Reason: constipation Senna/Docusate Sodium (Sennosides/Docusate Sodium Tablet) 1 tab PO BID [facility] Last Admin: 12/02/24 08:50 Dose: 1 tab Vitamin D (Cholecalciferol (Vitamin D3) 25 Mcg Tablet) 50 mcg PO DAILY [facility] Last Admin: 12/02/24 08:50 Dose: 50 mcg Allergies Allergies Allergy/AdvReac Type Severity Reaction Status Date / Time meperidine [From Demerol] AdvReac Intermediate Rash Verified 08/23/24 19:34 morphine AdvReac Intermediate Rash Verified 08/23/24 19:35 Sulfa (Sulfonamide AdvReac Intermediate Rash Verified 08/23/24 19:36 Antibiotics) Assessment & Plan Assessment & Plan (1) Schizoaffective disorder: Status: Acute Code(s): F25.9 - Schizoaffective disorder, unspecified Plan Ms. Thomas is a 69 year-old woman with hx of Bipolar Disorder, she currently presents with several symptoms suggestive of negative symptoms seem usually in schizoaffective disorder including constricted affect, abulia (some acknowledgment that she needed to initiate certain activities like going to dentist but still not doing so for unclear reasons). No overt paranoid delusions, her delayed response may be signs of thought blocking and underlying psychosis. She is in agreement to receive treatment and complete work up to also assess her memory and cognition. 11/07 continue tx. awaiting placement. 11/08: stable presentation, awaiting placement. 11/09: no change, awaiting placement. 11/10: no change in presentation. stable. continue current mgmt. 11/11: stable. continue current mgmt. 11/12/2024: No changes to primary team's treatment plan 11/13/24: no changes 11/14 continue tx. 11/15 continue tx. 11/16: stable. no change in mgmt. 11/17 continue tx. 11/18: stable. no change in presentation or mgmt today. 11/19: continue current management and treatment plan. 11/20: continue current management and treatment plan. 11/21: continue current management and treatment plan. 11/22 increase namenda 5mg po BID, target abulia. 11/24: no change in presentation. continue current mgmt. 11/25: continue current mgmt. no change. 11/26: Continue current regimen and plans. 11/27: Continue current regimen and plans. 11/28 continue tx. 11/29 continue tx. 11/30: no change in presentation. continue current mgmt. 12/01 continue tx. 12/02 continue tx. Reason for continued inpatient stay Substantial Risk for: inability to function Time Spent With Patient Time: Total time managing care of this patient today ____ minutes.
[2024-12-02 20:00] VITALS: BP 115/56; PULSE 89; RESP 16; TEMP 37.2; O2SAT 96
[2024-12-03 08:00] VITALS: BP 117/93; BP 132/63; PULSE 68; PULSE 93; RESP 18; TEMP 36.8; TEMP 36.9; O2SAT 97; O2SAT 99
[2024-12-03] MEDS: ARIPiprazole 30 MG TABLET PO (08:46)
--- NOTE | 2024-12-03 09:34 | HO.PSYCHPN ---
Subjective Subjective Date of Service: 12/03/24 Reason For Visit: bipolar 1 disorder current or most recent epi Interim History: no change in presentation. reports she is fine. per staff, no change. Mental Status Exam Mental Status Exam Narrative: Appearance: adequately dressed and groomed Psychomotor: some retardation Speech: mostly clear, less latency, minimally spontaneous TP: [place] TC: no questions or complaints Mood: fine Affect: Flat SI: none expressed HI: none expressed VH/AH: none evidenced Delusions: no overt delusional content noted or reported Insight/judgment: impaired . Diagnostics Vital Signs (24Hr): Vital Signs - 24 hr 12/02/24 20:00 12/03/24 08:00 Temperature 99.0 F 98.2 F Pulse Rate 89 93 Respiratory Rate 16 18 Blood Pressure 115/56 L 117/93 H Pulse Oximetry 96 97 Oxygen Delivery Method Room Air Room Air BMI result Body Mass Index 22.6 Labs 11/15/24 11:02 11/15/24 11:02 Imaging Radiology Impressions: ITS Impressions Head CT 08/25/24 11:33 IMPRESSION: No acute intracranial abnormality. Electronically signed by: Cj Colunga MD 08/25/2024 12:12 PM EST RP KUB X-Ray 10/28/24 09:50 IMPRESSION: Abundant stool without intestinal obstruction pattern. Electronically signed by: Audie Uribe MD 10/28/2024 10:02 AM EDT RP Medications Medications Current Medications Aripiprazole (Aripiprazole 30 Mg Tablet) 30 mg PO DAILY [facility] Last Admin: 12/03/24 08:46 Dose: 30 mg Benzocaine (Throat Lozenge, Medicated Lozenge) 1 lozenge MUCOUS MEM Q1H PRN PRN Reason: Sore Throat Last Admin: 09/01/24 06:09 Dose: 1 lozenge Guaifenesin/Dextromethorphan (Guaifenesin Dm 200/20/10 Ml 10 Ml Syrup) 10 ml PO Q4H PRN PRN Reason: Cough Last Admin: 08/30/24 05:47 Dose: 10 ml Levothyroxine Sodium (Levothyroxine Sodium 75 Mcg Tablet) 75 mcg PO DAILY@0600 [facility] Last Admin: 12/03/24 06:26 Dose: 75 mcg Lidocaine/Diphenhydr/Alum/Mg/Simeth (Mag&Al/Sim/Diphenhyd/Lidocaine 10 Ml Oral.Susp) 10 ml PO Q6H PRN; Protocol PRN Reason: Painful Gums Last Admin: 08/26/24 13:38 Dose: 10 ml Memantine (Memantine Hcl 5 Mg Tablet) 5 mg PO BID [facility] Last Admin: 12/03/24 08:46 Dose: 5 mg Olanzapine (Olanzapine Odt 10 Mg Tab.Rapdis) 5 mg TRANSLINGU Q6H PRN PRN Reason: Agitation Last Admin: 11/01/24 20:50 Dose: 5 mg Polyethylene Glycol (Polyethylene Glycol 3350 17 Gm Powd.Pack) 17 gm PO DAILY PRN PRN Reason: constipation Senna/Docusate Sodium (Sennosides/Docusate Sodium Tablet) 1 tab PO BID [facility] Last Admin: 12/03/24 08:46 Dose: 1 tab Vitamin D (Cholecalciferol (Vitamin D3) 25 Mcg Tablet) 50 mcg PO DAILY [facility] Last Admin: 12/03/24 08:46 Dose: 50 mcg Allergies Allergies Allergy/AdvReac Type Severity Reaction Status Date / Time meperidine [From Demerol] AdvReac Intermediate Rash Verified 08/23/24 19:34 morphine AdvReac Intermediate Rash Verified 08/23/24 19:35 Sulfa (Sulfonamide AdvReac Intermediate Rash Verified 08/23/24 19:36 Antibiotics) Assessment & Plan Assessment & Plan (1) Schizoaffective disorder: Status: Acute Code(s): F25.9 - Schizoaffective disorder, unspecified Plan Ms. Thomas is a 69 year-old woman with hx of Bipolar Disorder, she currently presents with several symptoms suggestive of negative symptoms seem usually in schizoaffective disorder including constricted affect, abulia (some acknowledgment that she needed to initiate certain activities like going to dentist but still not doing so for unclear reasons). No overt paranoid delusions, her delayed response may be signs of thought blocking and underlying psychosis. She is in agreement to receive treatment and complete work up to also assess her memory and cognition. 11/07 continue tx. awaiting placement. 11/08: stable presentation, awaiting placement. 11/09: no change, awaiting placement. 11/10: no change in presentation. stable. continue current mgmt. 11/11: stable. continue current mgmt. 11/12/2024: No changes to primary team's treatment plan 11/13/24: no changes 11/14 continue tx. 11/15 continue tx. 11/16: stable. no change in mgmt. 11/17 continue tx. 11/18: stable. no change in presentation or mgmt today. 11/19: continue current management and treatment plan. 11/20: continue current management and treatment plan. 11/21: continue current management and treatment plan. 11/22 increase namenda 5mg po BID, target abulia. 11/24: no change in presentation. continue current mgmt. 11/25: continue current mgmt. no change. 11/26: Continue current regimen and plans. 11/27: Continue current regimen and plans. 11/28 continue tx. 11/29 continue tx. 11/30: no change in presentation. continue current mgmt. 12/01 continue tx. 12/02 continue tx. 12/03: no change, continue Tx. awaiting placement. Reason for continued inpatient stay Substantial Risk for: inability to function Time Spent With Patient Time: Total time managing care of this patient today ____ minutes.
[2024-12-03 20:00] VITALS: BP 132/63; PULSE 68; RESP 18; TEMP 36.9; O2SAT 99
[2024-12-04 08:00] VITALS: BP 132/63; PULSE 68; RESP 18; TEMP 36.7; O2SAT 99
[2024-12-04] MEDS: ARIPiprazole 30 MG TABLET PO (08:28)
--- NOTE | 2024-12-04 15:19 | P.PNPSI_ITS ---
Subjective Subjective Date of Service: 12/04/24 Reason For Visit: bipolar 1 disorder current or most recent epi Interim History: no change in presentation. per staff, eating, taking meds, spending nearly all of her time in her bed. no change. Mental Status Exam Mental Status Exam Narrative: Appearance: adequately dressed and groomed Psychomotor: some retardation Speech: mostly clear, less latency, minimally spontaneous TP: [place] TC: no questions or complaints Mood: fine Affect: Flat SI: none expressed HI: none expressed VH/AH: none evidenced Delusions: no overt delusional content noted or reported Insight/judgment: impaired . Diagnostics Vital Signs (24Hr): Vital Signs - 24 hr 12/03/24 20:00 12/04/24 08:00 Temperature 98.5 F 98.1 F Pulse Rate 68 68 Respiratory Rate 18 18 Blood Pressure 132/63 132/63 Pulse Oximetry 99 99 Oxygen Delivery Method Room Air Room Air BMI result Body Mass Index 22.6 Labs 11/15/24 11:02 11/15/24 11:02 Imaging Radiology Impressions: ITS Impressions Head CT 08/25/24 11:33 IMPRESSION: No acute intracranial abnormality. Electronically signed by: Cj Colunga MD 08/25/2024 12:12 PM EST RP KUB X-Ray 10/28/24 09:50 IMPRESSION: Abundant stool without intestinal obstruction pattern. Electronically signed by: Audie Uribe MD 10/28/2024 10:02 AM EDT RP Medications Medications Current Medications Aripiprazole (Aripiprazole 30 Mg Tablet) 30 mg PO DAILY [facility] Last Admin: 12/04/24 08:28 Dose: 30 mg Benzocaine (Throat Lozenge, Medicated Lozenge) 1 lozenge MUCOUS MEM Q1H PRN PRN Reason: Sore Throat Last Admin: 09/01/24 06:09 Dose: 1 lozenge Guaifenesin/Dextromethorphan (Guaifenesin Dm 200/20/10 Ml 10 Ml Syrup) 10 ml PO Q4H PRN PRN Reason: Cough Last Admin: 08/30/24 05:47 Dose: 10 ml Levothyroxine Sodium (Levothyroxine Sodium 75 Mcg Tablet) 75 mcg PO DAILY@0600 [facility] Last Admin: 06/08/25 06:10 Dose: 75 mcg Lidocaine/Diphenhydr/Alum/Mg/Simeth (Mag&Al/Sim/Diphenhyd/Lidocaine 10 Ml Oral.Susp) 10 ml PO Q6H PRN; Protocol PRN Reason: Painful Gums Last Admin: 08/26/24 13:38 Dose: 10 ml Memantine (Memantine Hcl 5 Mg Tablet) 5 mg PO BID [facility] Last Admin: 12/04/24 08:28 Dose: 5 mg Olanzapine (Olanzapine Odt 10 Mg Tab.Rapdis) 5 mg TRANSLINGU Q6H PRN PRN Reason: Agitation Last Admin: 11/01/24 20:50 Dose: 5 mg Polyethylene Glycol (Polyethylene Glycol 3350 17 Gm Powd.Pack) 17 gm PO DAILY PRN PRN Reason: constipation Senna/Docusate Sodium (Sennosides/Docusate Sodium Tablet) 1 tab PO BID [facility] Last Admin: 12/04/24 08:28 Dose: 1 tab Vitamin D (Cholecalciferol (Vitamin D3) 25 Mcg Tablet) 50 mcg PO DAILY [facility] Last Admin: 12/04/24 08:28 Dose: 50 mcg Allergies Allergies Allergy/AdvReac Type Severity Reaction Status Date / Time meperidine [From Demerol] AdvReac Intermediate Rash Verified 08/23/24 19:34 morphine AdvReac Intermediate Rash Verified 08/23/24 19:35 Sulfa (Sulfonamide AdvReac Intermediate Rash Verified 08/23/24 19:36 Antibiotics) Assessment & Plan Assessment & Plan (1) Schizoaffective disorder: Status: Acute Code(s): F25.9 - Schizoaffective disorder, unspecified Plan Ms. Thomas is a 69 year-old woman with hx of Bipolar Disorder, she currently presents with several symptoms suggestive of negative symptoms seem usually in schizoaffective disorder including constricted affect, abulia (some acknowledgment that she needed to initiate certain activities like going to dentist but still not doing so for unclear reasons). No overt paranoid delusions, her delayed response may be signs of thought blocking and underlying psychosis. She is in agreement to receive treatment and complete work up to also assess her memory and cognition. 11/07 continue tx. awaiting placement. 11/08: stable presentation, awaiting placement. 11/09: no change, awaiting placement. 11/10: no change in presentation. stable. continue current mgmt. 11/11: stable. continue current mgmt. 11/12/2024: No changes to primary team's treatment plan 11/13/24: no changes 11/14 continue tx. 11/15 continue tx. 11/16: stable. no change in mgmt. 11/17 continue tx. 11/18: stable. no change in presentation or mgmt today. 11/19: continue current management and treatment plan. 11/20: continue current management and treatment plan. 11/21: continue current management and treatment plan. 11/22 increase namenda 5mg po BID, target abulia. 11/24: no change in presentation. continue current mgmt. 11/25: continue current mgmt. no change. 11/26: Continue current regimen and plans. 11/27: Continue current regimen and plans. 11/28 continue tx. 11/29 continue tx. 11/30: no change in presentation. continue current mgmt. 12/01 continue tx. 12/02 continue tx. 12/03: no change, continue Tx. awaiting placement. 12/04: no change, continue current mgmt. Reason for continued inpatient stay Substantial Risk for: inability to function Time Spent With Patient Time: Total time managing care of this patient today ____ minutes.
[2024-12-04 19:26] VITALS: BP 101/70; PULSE 89; TEMP 36.8; O2SAT 96
[2024-12-05 08:00] VITALS: BP 127/60; PULSE 81; RESP 16; TEMP 36.2; O2SAT 98
[2024-12-05] MEDS: ARIPiprazole 30 MG TABLET PO (08:07)
--- NOTE | 2024-12-05 14:09 | HO.PSYCHPN ---
Subjective Subjective Date of Service: 12/05/24 Reason For Visit: bipolar 1 disorder current or most recent epi Interim History: no change in presentation. good. per staff, no change. Mental Status Exam Mental Status Exam Narrative: Appearance: adequately dressed and groomed Psychomotor: some retardation Speech: mostly clear, less latency, minimally spontaneous TP: [place] TC: no questions or complaints Mood: good Affect: Flat SI: none expressed HI: none expressed VH/AH: none evidenced Delusions: no overt delusional content noted or reported Insight/judgment: impaired . Diagnostics Vital Signs (24Hr): Vital Signs - 24 hr 12/04/24 19:26 12/05/24 08:00 Temperature 98.2 F 97.2 F Pulse Rate 89 81 Respiratory Rate 16 Blood Pressure 101/70 127/60 Pulse Oximetry 96 98 Oxygen Delivery Method Room Air Room Air BMI result Body Mass Index 22.6 Labs 11/15/24 11:02 11/15/24 11:02 Imaging Radiology Impressions: ITS Impressions Head CT 08/25/24 11:33 IMPRESSION: No acute intracranial abnormality. Electronically signed by: Cj Colunga MD 08/25/2024 12:12 PM EST RP KUB X-Ray 10/28/24 09:50 IMPRESSION: Abundant stool without intestinal obstruction pattern. Electronically signed by: Audie Uribe MD 10/28/2024 10:02 AM EDT RP Medications Medications Current Medications Aripiprazole (Aripiprazole 30 Mg Tablet) 30 mg PO DAILY [facility] Last Admin: 12/05/24 08:07 Dose: 30 mg Benzocaine (Throat Lozenge, Medicated Lozenge) 1 lozenge MUCOUS MEM Q1H PRN PRN Reason: Sore Throat Last Admin: 09/01/24 06:09 Dose: 1 lozenge Guaifenesin/Dextromethorphan (Guaifenesin Dm 200/20/10 Ml 10 Ml Syrup) 10 ml PO Q4H PRN PRN Reason: Cough Last Admin: 08/30/24 05:47 Dose: 10 ml Levothyroxine Sodium (Levothyroxine Sodium 75 Mcg Tablet) 75 mcg PO DAILY@0600 [facility] Last Admin: 12/05/24 06:29 Dose: 75 mcg Lidocaine/Diphenhydr/Alum/Mg/Simeth (Mag&Al/Sim/Diphenhyd/Lidocaine 10 Ml Oral.Susp) 10 ml PO Q6H PRN; Protocol PRN Reason: Painful Gums Last Admin: 08/26/24 13:38 Dose: 10 ml Memantine (Memantine Hcl 5 Mg Tablet) 5 mg PO BID [facility] Last Admin: 12/05/24 08:08 Dose: 5 mg Olanzapine (Olanzapine Odt 10 Mg Tab.Rapdis) 5 mg TRANSLINGU Q6H PRN PRN Reason: Agitation Last Admin: 11/01/24 20:50 Dose: 5 mg Polyethylene Glycol (Polyethylene Glycol 3350 17 Gm Powd.Pack) 17 gm PO DAILY PRN PRN Reason: constipation Senna/Docusate Sodium (Sennosides/Docusate Sodium Tablet) 1 tab PO BID [facility] Last Admin: 12/05/24 08:07 Dose: 1 tab Vitamin D (Cholecalciferol (Vitamin D3) 25 Mcg Tablet) 50 mcg PO DAILY [facility] Last Admin: 12/05/24 08:07 Dose: 50 mcg Allergies Allergies Allergy/AdvReac Type Severity Reaction Status Date / Time meperidine [From Demerol] AdvReac Intermediate Rash Verified 08/23/24 19:34 morphine AdvReac Intermediate Rash Verified 08/23/24 19:35 Sulfa (Sulfonamide AdvReac Intermediate Rash Verified 08/23/24 19:36 Antibiotics) Assessment & Plan Assessment & Plan (1) Schizoaffective disorder: Status: Acute Code(s): F25.9 - Schizoaffective disorder, unspecified Plan Ms. Thomas is a 69 year-old woman with hx of Bipolar Disorder, she currently presents with several symptoms suggestive of negative symptoms seem usually in schizoaffective disorder including constricted affect, abulia (some acknowledgment that she needed to initiate certain activities like going to dentist but still not doing so for unclear reasons). No overt paranoid delusions, her delayed response may be signs of thought blocking and underlying psychosis. She is in agreement to receive treatment and complete work up to also assess her memory and cognition. 11/07 continue tx. awaiting placement. 11/08: stable presentation, awaiting placement. 11/09: no change, awaiting placement. 11/10: no change in presentation. stable. continue current mgmt. 11/11: stable. continue current mgmt. 11/12/2024: No changes to primary team's treatment plan 11/13/24: no changes 11/14 continue tx. 11/15 continue tx. 11/16: stable. no change in mgmt. 11/17 continue tx. 11/18: stable. no change in presentation or mgmt today. 11/19: continue current management and treatment plan. 11/20: continue current management and treatment plan. 11/21: continue current management and treatment plan. 11/22 increase namenda 5mg po BID, target abulia. 11/24: no change in presentation. continue current mgmt. 11/25: continue current mgmt. no change. 11/26: Continue current regimen and plans. 11/27: Continue current regimen and plans. 11/28 continue tx. 11/29 continue tx. 11/30: no change in presentation. continue current mgmt. 12/01 continue tx. 12/02 continue tx. 12/03: no change, continue Tx. awaiting placement. 12/04: no change, continue current mgmt. 12/05: no change. awaiting placement. Reason for continued inpatient stay Substantial Risk for: inability to function Time Spent With Patient Time: Total time managing care of this patient today ____ minutes.
[2024-12-05 20:00] VITALS: BP 152/70; PULSE 87; TEMP 36.8; O2SAT 94
[2024-12-06 08:00] VITALS: BP 125/68; RESP 16; TEMP 36.4; O2SAT 98
[2024-12-06] MEDS: ARIPiprazole 30 MG TABLET PO (08:21)
[2024-12-06 20:00] VITALS: BP 115/64; PULSE 100; RESP 18; TEMP 36.9; O2SAT 96
--- NOTE | 2024-12-06 20:31 | P.PNPSI_ITS ---
Subjective Subjective Date of Service: 12/06/24 Reason For Visit: bipolar 1 disorder current or most recent epi Interim History: no change in presentation. feeling good, no complaints or requests. per staff, pleasant, calm, isolative. denying psych Sx. ate 2 of 3 meals. slept 7 hours. Mental Status Exam Mental Status Exam Narrative: Appearance: adequately dressed and groomed Psychomotor: some retardation Speech: mostly clear, less latency, minimally spontaneous TP: [place] TC: no questions or complaints Mood: good Affect: Flat SI: none expressed HI: none expressed VH/AH: none evidenced Delusions: no overt delusional content noted or reported Insight/judgment: impaired . Diagnostics Vital Signs (24Hr): Vital Signs - 24 hr 12/06/24 08:00 Temperature 97.5 F Respiratory Rate 16 Blood Pressure 125/68 Pulse Oximetry 98 Oxygen Delivery Method Room Air BMI result Body Mass Index 22.6 Labs 11/15/24 11:02 11/15/24 11:02 Imaging Radiology Impressions: [facility] Impressions Head CT 08/25/24 11:33 IMPRESSION: No acute intracranial abnormality. Electronically signed by: Cj Colunga MD 08/25/2024 12:12 PM EST RP KUB X-Ray 10/28/24 09:50 IMPRESSION: Abundant stool without intestinal obstruction pattern. Electronically signed by: Audie Uribe MD 10/28/2024 10:02 AM EDT RP Medications Medications Current Medications Aripiprazole (Aripiprazole 30 Mg Tablet) 30 mg PO DAILY [facility] Last Admin: 12/06/24 08:21 Dose: 30 mg Benzocaine (Throat Lozenge, Medicated Lozenge) 1 lozenge MUCOUS MEM Q1H PRN PRN Reason: Sore Throat Last Admin: 09/01/24 06:09 Dose: 1 lozenge Guaifenesin/Dextromethorphan (Guaifenesin Dm 200/20/10 Ml 10 Ml Syrup) 10 ml PO Q4H PRN PRN Reason: Cough Last Admin: 08/30/24 05:47 Dose: 10 ml Levothyroxine Sodium (Levothyroxine Sodium 75 Mcg Tablet) 75 mcg PO DAILY@0600 [facility] Last Admin: 12/06/24 05:32 Dose: 75 mcg Lidocaine/Diphenhydr/Alum/Mg/Simeth (Mag&Al/Sim/Diphenhyd/Lidocaine 10 Ml Oral.Susp) 10 ml PO Q6H PRN; Protocol PRN Reason: Painful Gums Last Admin: 08/26/24 13:38 Dose: 10 ml Memantine (Memantine Hcl 5 Mg Tablet) 5 mg PO BID [facility] Last Admin: 12/06/24 08:21 Dose: 5 mg Olanzapine (Olanzapine Odt 10 Mg Tab.Rapdis) 5 mg TRANSLINGU Q6H PRN PRN Reason: Agitation Last Admin: 11/01/24 20:50 Dose: 5 mg Polyethylene Glycol (Polyethylene Glycol 3350 17 Gm Powd.Pack) 17 gm PO DAILY PRN PRN Reason: constipation Senna/Docusate Sodium (Sennosides/Docusate Sodium Tablet) 1 tab PO BID [facility] Last Admin: 12/06/24 08:21 Dose: 1 tab Vitamin D (Cholecalciferol (Vitamin D3) 25 Mcg Tablet) 50 mcg PO DAILY [facility] Last Admin: 12/06/24 08:21 Dose: 50 mcg Allergies Allergies Allergy/AdvReac Type Severity Reaction Status Date / Time meperidine [From Demerol] AdvReac Intermediate Rash Verified 08/23/24 19:34 morphine AdvReac Intermediate Rash Verified 08/23/24 19:35 Sulfa (Sulfonamide AdvReac Intermediate Rash Verified 08/23/24 19:36 Antibiotics) Assessment & Plan Assessment & Plan (1) Schizoaffective disorder: Status: Acute Code(s): F25.9 - Schizoaffective disorder, unspecified Plan Ms. Thomas is a 69 year-old woman with hx of Bipolar Disorder, she currently presents with several symptoms suggestive of negative symptoms seem usually in schizoaffective disorder including constricted affect, abulia (some acknowledgment that she needed to initiate certain activities like going to dentist but still not doing so for unclear reasons). No overt paranoid delusions, her delayed response may be signs of thought blocking and underlying psychosis. She is in agreement to receive treatment and complete work up to also assess her memory and cognition. 11/07 continue tx. awaiting placement. 11/08: stable presentation, awaiting placement. 11/09: no change, awaiting placement. 11/10: no change in presentation. stable. continue current mgmt. 5/16: stable. continue current mgmt. 11/12/2024: No changes to primary team's treatment plan 11/13/24: no changes 11/14 continue tx. 11/15 continue tx. 11/16: stable. no change in mgmt. 11/17 continue tx. 11/18: stable. no change in presentation or mgmt today. 11/19: continue current management and treatment plan. 11/20: continue current management and treatment plan. 11/21: continue current management and treatment plan. 11/22 increase namenda 5mg po BID, target abulia. 11/24: no change in presentation. continue current mgmt. 11/25: continue current mgmt. no change. 11/26: Continue current regimen and plans. 11/27: Continue current regimen and plans. 11/28 continue tx. 11/29 continue tx. 11/30: no change in presentation. continue current mgmt. 12/01 continue tx. 12/02 continue tx. 12/03: no change, continue Tx. awaiting placement. 12/04: no change, continue current mgmt. 12/05: no change. awaiting placement. 12/06: as for yesterday. Reason for continued inpatient stay Substantial Risk for: inability to function Time Spent With Patient Time: Total time managing care of this patient today ____ minutes.
[2024-12-07 08:00] VITALS: BP 109/72; PULSE 100; RESP 16; TEMP 36.8; O2SAT 97
[2024-12-07] MEDS: ARIPiprazole 30 MG TABLET PO (09:14)
[2024-12-07 19:56] VITALS: BP 108/58; PULSE 92; RESP 16; TEMP 36.7; O2SAT 96
--- NOTE | 2024-12-07 20:55 | HO.PSYCHPN ---
Subjective Subjective Date of Service: 12/07/24 Reason For Visit: bipolar 1 disorder current or most recent epi Subjective Notes: Conditional Voluntary Healthcare Proxy: Yes Interim History: Pt visible on the unit for meals. She denies any physical concerns. No SI/HI. taking medications as prescribed. no overt psychosis or delusional statements. VS stable. Review of Systems Review of Systems Unremarkable Yes all other systems are reviewed and are negative Mental Status Exam Mental Status Exam Narrative: Appearance: adequately dressed and groomed Psychomotor: some retardation Speech: mostly clear, less latency, minimally spontaneous TP: [place] TC: no questions or complaints Mood: good Affect: Flat SI: none expressed HI: none expressed VH/AH: none evidenced Delusions: no overt delusional content noted or reported Insight/judgment: impaired . Diagnostics Vital Signs (24Hr): Vital Signs - 24 hr 12/07/24 08:00 12/07/24 19:56 Temperature 98.2 F 98.1 F Pulse Rate 100 92 Respiratory Rate 16 16 Blood Pressure 109/72 108/58 L Pulse Oximetry 97 96 Oxygen Delivery Method Room Air Room Air BMI result Body Mass Index 22.6 Labs 11/15/24 11:02 11/15/24 11:02 Imaging Radiology Impressions: [facility] Impressions Head CT 08/25/24 11:33 IMPRESSION: No acute intracranial abnormality. Electronically signed by: Cj Colunga MD 08/25/2024 12:12 PM EST RP KUB X-Ray 10/28/24 09:50 IMPRESSION: Abundant stool without intestinal obstruction pattern. Electronically signed by: Audie Uribe MD 10/28/2024 10:02 AM EDT RP Medications Medications Current Medications Aripiprazole (Aripiprazole 30 Mg Tablet) 30 mg PO DAILY [facility] Last Admin: 12/07/24 09:14 Dose: 30 mg Benzocaine (Throat Lozenge, Medicated Lozenge) 1 lozenge MUCOUS MEM Q1H PRN PRN Reason: Sore Throat Last Admin: 09/01/24 06:09 Dose: 1 lozenge Guaifenesin/Dextromethorphan (Guaifenesin Dm 200/20/10 Ml 10 Ml Syrup) 10 ml PO Q4H PRN PRN Reason: Cough Last Admin: 08/30/24 05:47 Dose: 10 ml Levothyroxine Sodium (Levothyroxine Sodium 75 Mcg Tablet) 75 mcg PO DAILY@0600 [facility] Last Admin: 12/07/24 05:35 Dose: 75 mcg Lidocaine/Diphenhydr/Alum/Mg/Simeth (Mag&Al/Sim/Diphenhyd/Lidocaine 10 Ml Oral.Susp) 10 ml PO Q6H PRN; Protocol PRN Reason: Painful Gums Last Admin: 08/26/24 13:38 Dose: 10 ml Memantine (Memantine Hcl 5 Mg Tablet) 5 mg PO BID [facility] Last Admin: 12/07/24 19:54 Dose: 5 mg Olanzapine (Olanzapine Odt 10 Mg Tab.Rapdis) 5 mg TRANSLINGU Q6H PRN PRN Reason: Agitation Last Admin: 11/01/24 20:50 Dose: 5 mg Polyethylene Glycol (Polyethylene Glycol 3350 17 Gm Powd.Pack) 17 gm PO DAILY PRN PRN Reason: constipation Senna/Docusate Sodium (Sennosides/Docusate Sodium Tablet) 1 tab PO BID [facility] Last Admin: 12/07/24 19:54 Dose: 1 tab Vitamin D (Cholecalciferol (Vitamin D3) 25 Mcg Tablet) 50 mcg PO DAILY [facility] Last Admin: 12/07/24 09:13 Dose: 50 mcg Allergies Allergies Allergy/AdvReac Type Severity Reaction Status Date / Time meperidine [From Demerol] AdvReac Intermediate Rash Verified 08/23/24 19:34 morphine AdvReac Intermediate Rash Verified 08/23/24 19:35 Sulfa (Sulfonamide AdvReac Intermediate Rash Verified 08/23/24 19:36 Antibiotics) Assessment & Plan Assessment & Plan (1) Schizoaffective disorder: Status: Acute Code(s): F25.9 - Schizoaffective disorder, unspecified Plan Ms. Thomas is a 69 year-old woman with hx of Bipolar Disorder, she currently presents with several symptoms suggestive of negative symptoms seem usually in schizoaffective disorder including constricted affect, abulia (some acknowledgment that she needed to initiate certain activities like going to dentist but still not doing so for unclear reasons). No overt paranoid delusions, her delayed response may be signs of thought blocking and underlying psychosis. She is in agreement to receive treatment and complete work up to also assess her memory and cognition. 11/07 continue tx. awaiting placement. 11/08: stable presentation, awaiting placement. 11/09: no change, awaiting placement. 11/10: no change in presentation. stable. continue current mgmt. 11/11: stable. continue current mgmt. 11/12/2024: No changes to primary team's treatment plan 11/13/24: no changes 11/14 continue tx. 11/15 continue tx. 11/16: stable. no change in mgmt. 11/17 continue tx. 11/18: stable. no change in presentation or mgmt today. 11/19: continue current management and treatment plan. 11/20: continue current management and treatment plan. 11/21: continue current management and treatment plan. 11/22 increase namenda 5mg po BID, target abulia. 11/24: no change in presentation. continue current mgmt. 11/25: continue current mgmt. no change. 11/26: Continue current regimen and plans. 11/27: Continue current regimen and plans. 11/28 continue tx. 11/29 continue tx. 11/30: no change in presentation. continue current mgmt. 12/01 continue tx. 12/02 continue tx. 12/03: no change, continue Tx. awaiting placement. 12/04: no change, continue current mgmt. 12/05: no change. awaiting placement. 12/06: as for yesterday. 12/07 continue tx. Reason for continued inpatient stay Substantial Risk for: inability to function Time Spent With Patient Time: Total time managing care of this patient today ____ minutes.
--- NOTE | 2024-12-08 07:45 | HO.PSYCHPN ---
Subjective Subjective Reason For Visit: bipolar 1 disorder current or most recent epi Diagnostics Vital Signs (24Hr): Vital Signs - 24 hr 12/07/24 08:00 12/07/24 19:56 Temperature 98.2 F 98.1 F Pulse Rate 100 92 Respiratory Rate 16 16 Blood Pressure 109/72 108/58 L Pulse Oximetry 97 96 Oxygen Delivery Method Room Air Room Air BMI result Body Mass Index 22.6 Labs 11/15/24 11:02 11/15/24 11:02 Imaging Radiology Impressions: [facility] Impressions Head CT 08/25/24 11:33 IMPRESSION: No acute intracranial abnormality. Electronically signed by: Cj Colunga MD 08/25/2024 12:12 PM EST RP KUB X-Ray 10/28/24 09:50 IMPRESSION: Abundant stool without intestinal obstruction pattern. Electronically signed by: Audie Uribe MD 10/28/2024 10:02 AM EDT RP Medications Medications Current Medications Aripiprazole (Aripiprazole 30 Mg Tablet) 30 mg PO DAILY [facility] Last Admin: 12/07/24 09:14 Dose: 30 mg Benzocaine (Throat Lozenge, Medicated Lozenge) 1 lozenge MUCOUS MEM Q1H PRN PRN Reason: Sore Throat Last Admin: 09/01/24 06:09 Dose: 1 lozenge Guaifenesin/Dextromethorphan (Guaifenesin Dm 200/20/10 Ml 10 Ml Syrup) 10 ml PO Q4H PRN PRN Reason: Cough Last Admin: 08/30/24 05:47 Dose: 10 ml Levothyroxine Sodium (Levothyroxine Sodium 75 Mcg Tablet) 75 mcg PO DAILY@0600 [facility] Last Admin: 12/08/24 06:47 Dose: 75 mcg Lidocaine/Diphenhydr/Alum/Mg/Simeth (Mag&Al/Sim/Diphenhyd/Lidocaine 10 Ml Oral.Susp) 10 ml PO Q6H PRN; Protocol PRN Reason: Painful Gums Last Admin: 08/26/24 13:38 Dose: 10 ml Memantine (Memantine Hcl 5 Mg Tablet) 5 mg PO BID [facility] Last Admin: 12/07/24 19:54 Dose: 5 mg Olanzapine (Olanzapine Odt 10 Mg Tab.Rapdis) 5 mg TRANSLINGU Q6H PRN PRN Reason: Agitation Last Admin: 11/01/24 20:50 Dose: 5 mg Polyethylene Glycol (Polyethylene Glycol 3350 17 Gm Powd.Pack) 17 gm PO DAILY PRN PRN Reason: constipation Senna/Docusate Sodium (Sennosides/Docusate Sodium Tablet) 1 tab PO BID [facility] Last Admin: 12/07/24 19:54 Dose: 1 tab Vitamin D (Cholecalciferol (Vitamin D3) 25 Mcg Tablet) 50 mcg PO DAILY [facility] Last Admin: 12/07/24 09:13 Dose: 50 mcg Allergies Allergies Allergy/AdvReac Type Severity Reaction Status Date / Time meperidine [From Demerol] AdvReac Intermediate Rash Verified 08/23/24 19:34 morphine AdvReac Intermediate Rash Verified 08/23/24 19:35 Sulfa (Sulfonamide AdvReac Intermediate Rash Verified 08/23/24 19:36 Antibiotics) Assessment & Plan Assessment & Plan (1) Schizoaffective disorder: Status: Acute Code(s): F25.9 - Schizoaffective disorder, unspecified Plan Ms. Thomas is a 69 year-old woman with hx of Bipolar Disorder, she currently presents with several symptoms suggestive of negative symptoms seem usually in schizoaffective disorder including constricted affect, abulia (some acknowledgment that she needed to initiate certain activities like going to dentist but still not doing so for unclear reasons). No overt paranoid delusions, her delayed response may be signs of thought blocking and underlying psychosis. She is in agreement to receive treatment and complete work up to also assess her memory and cognition. 11/07 continue tx. awaiting placement. 11/08: stable presentation, awaiting placement. 11/09: no change, awaiting placement. 11/10: no change in presentation. stable. continue current mgmt. 11/11: stable. continue current mgmt. 11/12/2024: No changes to primary team's treatment plan 11/13/24: no changes 11/14 continue tx. 11/15 continue tx. 11/16: stable. no change in mgmt. 11/17 continue tx. 11/18: stable. no change in presentation or mgmt today. 11/19: continue current management and treatment plan. 11/20: continue current management and treatment plan. 11/21: continue current management and treatment plan. 11/22 increase namenda 5mg po BID, target abulia. 11/24: no change in presentation. continue current mgmt. 11/25: continue current mgmt. no change. 11/26: Continue current regimen and plans. 11/27: Continue current regimen and plans. 11/28 continue tx. 11/29 continue tx. 11/30: no change in presentation. continue current mgmt. 12/01 continue tx. 12/02 continue tx. 12/03: no change, continue Tx. awaiting placement. 12/04: no change, continue current mgmt. 12/05: no change. awaiting placement. 12/06: as for yesterday. 12/07 continue tx. Time Spent With Patient Time: Total time managing care of this patient today ____ minutes.
[2024-12-08 08:00] VITALS: BP 136/68; PULSE 69; RESP 16; TEMP 36.2; O2SAT 95
[2024-12-08] MEDS: ARIPiprazole 30 MG TABLET PO (08:51)
--- NOTE | 2024-12-08 16:15 | HO.PSYCHPN ---
Subjective Subjective Date of Service: 12/08/24 Reason For Visit: bipolar 1 disorder current or most recent epi Interim History: no change in presentation. Mental Status Exam Mental Status Exam Narrative: Appearance: adequately dressed and groomed Psychomotor: some retardation Speech: mostly clear, less latency, minimally spontaneous TP: [place] TC: no questions or complaints Mood: good Affect: Flat SI: none expressed HI: none expressed VH/AH: none evidenced Delusions: no overt delusional content noted or reported Insight/judgment: impaired . Diagnostics Vital Signs (24Hr): Vital Signs - 24 hr 12/07/24 19:56 12/08/24 08:00 Temperature 98.1 F 97.1 F Pulse Rate 92 69 Respiratory Rate 16 16 Blood Pressure 108/58 L 136/68 Pulse Oximetry 96 95 Oxygen Delivery Method Room Air Room Air BMI result Body Mass Index 22.6 Labs 11/15/24 11:02 11/15/24 11:02 Imaging Radiology Impressions: [facility] Impressions Head CT 08/25/24 11:33 IMPRESSION: No acute intracranial abnormality. Electronically signed by: Cj Colunga MD 08/25/2024 12:12 PM EST RP KUB X-Ray 10/28/24 09:50 IMPRESSION: Abundant stool without intestinal obstruction pattern. Electronically signed by: Audie Uribe MD 10/28/2024 10:02 AM EDT RP Medications Medications Current Medications Aripiprazole (Aripiprazole 30 Mg Tablet) 30 mg PO DAILY [facility] Last Admin: 12/08/24 08:51 Dose: 30 mg Benzocaine (Throat Lozenge, Medicated Lozenge) 1 lozenge MUCOUS MEM Q1H PRN PRN Reason: Sore Throat Last Admin: 09/01/24 06:09 Dose: 1 lozenge Guaifenesin/Dextromethorphan (Guaifenesin Dm 200/20/10 Ml 10 Ml Syrup) 10 ml PO Q4H PRN PRN Reason: Cough Last Admin: 08/30/24 05:47 Dose: 10 ml Levothyroxine Sodium (Levothyroxine Sodium 75 Mcg Tablet) 75 mcg PO DAILY@0600 [facility] Last Admin: 12/08/24 06:47 Dose: 75 mcg Lidocaine/Diphenhydr/Alum/Mg/Simeth (Mag&Al/Sim/Diphenhyd/Lidocaine 10 Ml Oral.Susp) 10 ml PO Q6H PRN; Protocol PRN Reason: Painful Gums Last Admin: 08/26/24 13:38 Dose: 10 ml Memantine (Memantine Hcl 5 Mg Tablet) 5 mg PO BID [facility] Last Admin: 12/08/24 08:52 Dose: 5 mg Olanzapine (Olanzapine Odt 10 Mg Tab.Rapdis) 5 mg TRANSLINGU Q6H PRN PRN Reason: Agitation Last Admin: 11/01/24 20:50 Dose: 5 mg Polyethylene Glycol (Polyethylene Glycol 3350 17 Gm Powd.Pack) 17 gm PO DAILY PRN PRN Reason: constipation Senna/Docusate Sodium (Sennosides/Docusate Sodium Tablet) 1 tab PO BID [facility] Last Admin: 12/08/24 08:52 Dose: 1 tab Vitamin D (Cholecalciferol (Vitamin D3) 25 Mcg Tablet) 50 mcg PO DAILY [facility] Last Admin: 12/08/24 08:51 Dose: 50 mcg Allergies Allergies Allergy/AdvReac Type Severity Reaction Status Date / Time meperidine [From Demerol] AdvReac Intermediate Rash Verified 08/23/24 19:34 morphine AdvReac Intermediate Rash Verified 08/23/24 19:35 Sulfa (Sulfonamide AdvReac Intermediate Rash Verified 08/23/24 19:36 Antibiotics) Assessment & Plan Assessment & Plan (1) Schizoaffective disorder: Status: Acute Code(s): F25.9 - Schizoaffective disorder, unspecified Plan stable. continue current mgmt. awaiting placement. Reason for continued inpatient stay Substantial Risk for: inability to function and rapid decompensation Time Spent With Patient Time: Total time managing care of this patient today ____ minutes.
[2024-12-08 20:00] VITALS: BP 117/54; PULSE 95; RESP 18; TEMP 37; O2SAT 96
[2024-12-09 10:18] VITALS: BP 103/59; PULSE 91; RESP 16; TEMP 36.8; O2SAT 96
--- NOTE | 2024-12-09 11:44 | HO.PSYCHPN ---
Subjective Subjective Date of Service: 12/09/24 Reason For Visit: bipolar 1 disorder current or most recent epi Interim History: no issues, no change in presentation. per staff, eating, taking meds, sleeping well. isolative, flat, irritable. awaiting placement. Mental Status Exam Mental Status Exam Narrative: Appearance: adequately dressed and groomed Psychomotor: some retardation Speech: mostly clear, less latency, minimally spontaneous TP: [place] TC: no questions or complaints Mood: good Affect: Flat SI: none expressed HI: none expressed VH/AH: none evidenced Delusions: no overt delusional content noted or reported Insight/judgment: impaired . Diagnostics Vital Signs (24Hr): Vital Signs - 24 hr 12/08/24 20:00 12/09/24 10:18 Temperature 98.6 F 98.2 F Pulse Rate 95 91 Respiratory Rate 18 16 Blood Pressure 117/54 L 103/59 L Pulse Oximetry 96 96 Oxygen Delivery Method Room Air Room Air BMI result Body Mass Index 22.6 Labs 11/15/24 11:02 11/15/24 11:02 Imaging Radiology Impressions: ITS Impressions Head CT 08/25/24 11:33 IMPRESSION: No acute intracranial abnormality. Electronically signed by: Cj Colunga MD 08/25/2024 12:12 PM EST RP KUB X-Ray 10/28/24 09:50 IMPRESSION: Abundant stool without intestinal obstruction pattern. Electronically signed by: Audie Uribe MD 10/28/2024 10:02 AM EDT RP Medications Medications Current Medications Aripiprazole (Aripiprazole 30 Mg Tablet) 30 mg PO DAILY [facility] Benzocaine (Throat Lozenge, Medicated Lozenge) 1 lozenge MUCOUS MEM Q1H PRN PRN Reason: Sore Throat Last Admin: 09/01/24 06:09 Dose: 1 lozenge Guaifenesin/Dextromethorphan (Guaifenesin Dm 200/20/10 Ml 10 Ml Syrup) 10 ml PO Q4H PRN PRN Reason: Cough Last Admin: 08/30/24 05:47 Dose: 10 ml Levothyroxine Sodium (Levothyroxine Sodium 75 Mcg Tablet) 75 mcg PO DAILY@0600 [facility] Last Admin: 12/09/24 05:41 Dose: 75 mcg Lidocaine/Diphenhydr/Alum/Mg/Simeth (Mag&Al/Sim/Diphenhyd/Lidocaine 10 Ml Oral.Susp) 10 ml PO Q6H PRN; Protocol PRN Reason: Painful Gums Last Admin: 08/26/24 13:38 Dose: 10 ml Memantine (Memantine Hcl 5 Mg Tablet) 5 mg PO BID [facility] Last Admin: 12/09/24 10:23 Dose: 5 mg Olanzapine (Olanzapine Odt 10 Mg Tab.Rapdis) 5 mg TRANSLINGU Q6H PRN PRN Reason: Agitation Last Admin: 11/01/24 20:50 Dose: 5 mg Polyethylene Glycol (Polyethylene Glycol 3350 17 Gm Powd.Pack) 17 gm PO DAILY PRN PRN Reason: constipation Senna/Docusate Sodium (Sennosides/Docusate Sodium Tablet) 1 tab PO BID [facility] Last Admin: 12/09/24 10:23 Dose: 1 tab Vitamin D (Cholecalciferol (Vitamin D3) 25 Mcg Tablet) 50 mcg PO DAILY [facility] Last Admin: 12/09/24 10:23 Dose: 50 mcg Allergies Allergies Allergy/AdvReac Type Severity Reaction Status Date / Time meperidine [From Demerol] AdvReac Intermediate Rash Verified 08/23/24 19:34 morphine AdvReac Intermediate Rash Verified 08/23/24 19:35 Sulfa (Sulfonamide AdvReac Intermediate Rash Verified 08/23/24 19:36 Antibiotics) Assessment & Plan Assessment & Plan (1) Schizoaffective disorder: Status: Acute Code(s): F25.9 - Schizoaffective disorder, unspecified Plan stable. continue current mgmt. awaiting placement. Reason for continued inpatient stay Substantial Risk for: inability to function Time Spent With Patient Time: Total time managing care of this patient today ____ minutes.
[2024-12-09] MEDS: ARIPiprazole 30 MG TABLET PO (11:54)
[2024-12-09 20:00] VITALS: BP 118/65; PULSE 74; RESP 16; TEMP 36.6; O2SAT 97
[2024-12-10] MEDS: ARIPiprazole 30 MG TABLET PO (07:49)
[2024-12-10 08:03] VITALS: BP 134/61; PULSE 85; RESP 16; TEMP 36.4; O2SAT 98
--- NOTE | 2024-12-10 08:45 | P.PNPSI_ITS ---
Subjective Subjective Date of Service: 12/10/24 Reason For Visit: bipolar 1 disorder current or most recent epi Subjective Notes: Conditional Voluntary Interim History: 69 yo WF lying stiffly (like a board) some what sideways in bed- denying all sys and fairly flat affect- Medication Compliance: Yes Side effects from medications: No Attending Groups: Intermittent Review of Systems Acute medical concerns: No Medical Review of Systems: unchanged Mental Status Exam Mental Status Exam Narrative: Groomed but stiff- dressed in own clothing Patient Orientation: Person and Situation Level of Consciousness: Awake and Alert Patient Behavior: Passive and Isolative Mood Description: Constricted Affect Description: Flat Ability to Follow Directions: Fair Speech Pattern: Clear and Impoverished Hallucinations: None Delusions: Not Present Thought Process: Goal Oriented Thought Content: positive for [place] Judgement: Fair Diagnostics Vital Signs (24Hr): Vital Signs - 24 hr 12/09/24 10:18 12/09/24 20:00 Temperature 98.2 F 98 F Pulse Rate 91 74 Respiratory Rate 16 16 Blood Pressure 103/59 L 118/65 Pulse Oximetry 96 97 Oxygen Delivery Method Room Air Room Air BMI result Body Mass Index 22.6 Labs 11/15/24 11:02 11/15/24 11:02 Imaging Radiology Impressions: ITS Impressions Head CT 08/25/24 11:33 IMPRESSION: No acute intracranial abnormality. Electronically signed by: Cj Colunga MD 08/25/2024 12:12 PM EST RP KUB X-Ray 10/28/24 09:50 IMPRESSION: Abundant stool without intestinal obstruction pattern. Electronically signed by: Audie Uribe MD 10/28/2024 10:02 AM EDT RP Medications Medications Current Medications Aripiprazole (Aripiprazole 30 Mg Tablet) 30 mg PO DAILY [facility] Last Admin: 12/10/24 07:49 Dose: 30 mg Benzocaine (Throat Lozenge, Medicated Lozenge) 1 lozenge MUCOUS MEM Q1H PRN PRN Reason: Sore Throat Last Admin: 09/01/24 06:09 Dose: 1 lozenge Guaifenesin/Dextromethorphan (Guaifenesin Dm 200/20/10 Ml 10 Ml Syrup) 10 ml PO Q4H PRN PRN Reason: Cough Last Admin: 08/30/24 05:47 Dose: 10 ml Levothyroxine Sodium (Levothyroxine Sodium 75 Mcg Tablet) 75 mcg PO DAILY@0600 [facility] Last Admin: 12/10/24 05:43 Dose: 75 mcg Lidocaine/Diphenhydr/Alum/Mg/Simeth (Mag&Al/Sim/Diphenhyd/Lidocaine 10 Ml Oral.Susp) 10 ml PO Q6H PRN; Protocol PRN Reason: Painful Gums Last Admin: 08/26/24 13:38 Dose: 10 ml Memantine (Memantine Hcl 5 Mg Tablet) 5 mg PO BID [facility] Last Admin: 12/10/24 07:49 Dose: 5 mg Olanzapine (Olanzapine Odt 10 Mg Tab.Rapdis) 5 mg TRANSLINGU Q6H PRN PRN Reason: Agitation Last Admin: 11/01/24 20:50 Dose: 5 mg Polyethylene Glycol (Polyethylene Glycol 3350 17 Gm Powd.Pack) 17 gm PO DAILY PRN PRN Reason: constipation Senna/Docusate Sodium (Sennosides/Docusate Sodium Tablet) 1 tab PO BID [facility] Last Admin: 12/10/24 07:50 Dose: 1 tab Vitamin D (Cholecalciferol (Vitamin D3) 25 Mcg Tablet) 50 mcg PO DAILY [facility] Last Admin: 12/10/24 07:48 Dose: 50 mcg Allergies Allergies Allergy/AdvReac Type Severity Reaction Status Date / Time meperidine [From Demerol] AdvReac Intermediate Rash Verified 08/23/24 19:34 morphine AdvReac Intermediate Rash Verified 08/23/24 19:35 Sulfa (Sulfonamide AdvReac Intermediate Rash Verified 08/23/24 19:36 Antibiotics) Assessment & Plan Assessment & Plan (1) Schizoaffective disorder: Status: Acute Code(s): F25.9 - Schizoaffective disorder, unspecified Plan stable. continue current mgmt. awaiting placement. 12/10/24- no change CTP Reason for continued inpatient stay Substantial Risk for: inability to function and rapid decompensation Time Spent With Patient Time: Total time managing care of this patient today ____ minutes.
[2024-12-10 20:00] VITALS: BP 115/56; PULSE 72; RESP 16; TEMP 36.9; O2SAT 97
[2024-12-11 08:00] VITALS: BP 151/67; PULSE 67; RESP 16; TEMP 36.4; O2SAT 98
[2024-12-11] MEDS: ARIPiprazole 30 MG TABLET PO (08:54)
--- NOTE | 2024-12-11 09:46 | HO.PSYCHPN ---
Subjective Subjective Date of Service: 12/11/24 Reason For Visit: bipolar 1 disorder current or most recent epi Subjective Notes: Conditional Voluntary Healthcare Proxy: No Guardianship: No Medical Problems Affecting Mental Status: No Interim History: 69 with no complaints, flat affect, answers all questions lying in bed comfortable Medication Compliance: Yes Side effects from medications: No Attending Groups: No Review of Systems Acute medical concerns: No Medical Review of Systems: unchanged Mental Status Exam Mental Status Exam Narrative: Groomed but stiff- dressed in own clothing Patient Orientation: Person and Situation Level of Consciousness: Awake and Alert Patient Behavior: Passive and Isolative Mood Description: Constricted Affect Description: Flat Ability to Follow Directions: Fair Speech Pattern: Clear and Impoverished Hallucinations: None Delusions: Not Present Thought Process: Goal Oriented Thought Content: positive for [place] Judgement: Fair Diagnostics Vital Signs (24Hr): Vital Signs - 24 hr 12/10/24 20:00 12/11/24 08:00 Temperature 98.4 F 97.5 F Pulse Rate 72 67 Respiratory Rate 16 16 Blood Pressure 115/56 L 151/67 H Pulse Oximetry 97 98 Oxygen Delivery Method Room Air Room Air BMI result Body Mass Index 22.6 Labs 11/15/24 11:02 11/15/24 11:02 Imaging Radiology Impressions: ITS Impressions Head CT 08/25/24 11:33 IMPRESSION: No acute intracranial abnormality. Electronically signed by: Cj Colunga MD 08/25/2024 12:12 PM EST RP KUB X-Ray 10/28/24 09:50 IMPRESSION: Abundant stool without intestinal obstruction pattern. Electronically signed by: Audie Uribe MD 10/28/2024 10:02 AM EDT RP Medications Medications Current Medications Aripiprazole (Aripiprazole 30 Mg Tablet) 30 mg PO DAILY [facility] Last Admin: 12/11/24 08:54 Dose: 30 mg Benzocaine (Throat Lozenge, Medicated Lozenge) 1 lozenge MUCOUS MEM Q1H PRN PRN Reason: Sore Throat Last Admin: 09/01/24 06:09 Dose: 1 lozenge Guaifenesin/Dextromethorphan (Guaifenesin Dm 200/20/10 Ml 10 Ml Syrup) 10 ml PO Q4H PRN PRN Reason: Cough Last Admin: 08/30/24 05:47 Dose: 10 ml Levothyroxine Sodium (Levothyroxine Sodium 75 Mcg Tablet) 75 mcg PO DAILY@0600 [facility] Last Admin: 12/11/24 06:33 Dose: 75 mcg Lidocaine/Diphenhydr/Alum/Mg/Simeth (Mag&Al/Sim/Diphenhyd/Lidocaine 10 Ml Oral.Susp) 10 ml PO Q6H PRN; Protocol PRN Reason: Painful Gums Last Admin: 08/26/24 13:38 Dose: 10 ml Memantine (Memantine Hcl 5 Mg Tablet) 5 mg PO BID [facility] Last Admin: 12/11/24 08:54 Dose: 5 mg Olanzapine (Olanzapine Odt 10 Mg Tab.Rapdis) 5 mg TRANSLINGU Q6H PRN PRN Reason: Agitation Last Admin: 11/01/24 20:50 Dose: 5 mg Polyethylene Glycol (Polyethylene Glycol 3350 17 Gm Powd.Pack) 17 gm PO DAILY PRN PRN Reason: constipation Senna/Docusate Sodium (Sennosides/Docusate Sodium Tablet) 1 tab PO BID [facility] Last Admin: 12/11/24 08:54 Dose: 1 tab Vitamin D (Cholecalciferol (Vitamin D3) 25 Mcg Tablet) 50 mcg PO DAILY [facility] Last Admin: 12/11/24 08:54 Dose: 50 mcg Allergies Allergies Allergy/AdvReac Type Severity Reaction Status Date / Time meperidine [From Demerol] AdvReac Intermediate Rash Verified 08/23/24 19:34 morphine AdvReac Intermediate Rash Verified 08/23/24 19:35 Sulfa (Sulfonamide AdvReac Intermediate Rash Verified 08/23/24 19:36 Antibiotics) Assessment & Plan Assessment & Plan (1) Schizoaffective disorder: Status: Acute Code(s): F25.9 - Schizoaffective disorder, unspecified Plan stable. continue current mgmt. awaiting placement. 12/10/24- no change CTP 12/11/24- patient flat but responsive- CTP Reason for continued inpatient stay Substantial Risk for: inability to function and rapid decompensation Time Spent With Patient Time: Total time managing care of this patient today ____ minutes.
[2024-12-11 20:00] VITALS: BP 127/60; PULSE 83; RESP 16; TEMP 36.7; O2SAT 95
[2024-12-12 09:56] VITALS: BP 121/60; PULSE 99; RESP 15; TEMP 36.8; O2SAT 98
[2024-12-12] MEDS: ARIPiprazole 30 MG TABLET PO (09:59)
--- NOTE | 2024-12-12 13:44 | HO.PSYCHPN ---
Subjective Subjective Date of Service: 12/12/24 Reason For Visit: bipolar 1 disorder current or most recent epi Interim History: no change in presentation. per staff, sleeping, taking meds. Mental Status Exam Mental Status Exam Narrative: Appearance: adequately dressed and groomed Psychomotor: some retardation Speech: mostly clear, less latency, minimally spontaneous TP: [place] TC: no questions or complaints Mood: good Affect: Flat SI: none expressed HI: none expressed VH/AH: none evidenced Delusions: no overt delusional content noted or reported Insight/judgment: impaired . Diagnostics Vital Signs (24Hr): Vital Signs - 24 hr 12/11/24 20:00 12/12/24 09:56 Temperature 98.1 F 98.2 F Pulse Rate 83 99 Respiratory Rate 16 15 Blood Pressure 127/60 121/60 Pulse Oximetry 95 98 Oxygen Delivery Method Room Air Room Air BMI result Body Mass Index 22.6 Labs 11/15/24 11:02 11/15/24 11:02 Imaging Radiology Impressions: ITS Impressions Head CT 08/25/24 11:33 IMPRESSION: No acute intracranial abnormality. Electronically signed by: Cj Colunga MD 08/25/2024 12:12 PM EST RP KUB X-Ray 10/28/24 09:50 IMPRESSION: Abundant stool without intestinal obstruction pattern. Electronically signed by: Audie Uribe MD 10/28/2024 10:02 AM EDT RP Medications Medications Current Medications Aripiprazole (Aripiprazole 30 Mg Tablet) 30 mg PO DAILY [facility] Last Admin: 12/12/24 09:59 Dose: 30 mg Benzocaine (Throat Lozenge, Medicated Lozenge) 1 lozenge MUCOUS MEM Q1H PRN PRN Reason: Sore Throat Last Admin: 09/01/24 06:09 Dose: 1 lozenge Guaifenesin/Dextromethorphan (Guaifenesin Dm 200/20/10 Ml 10 Ml Syrup) 10 ml PO Q4H PRN PRN Reason: Cough Last Admin: 08/30/24 05:47 Dose: 10 ml Levothyroxine Sodium (Levothyroxine Sodium 75 Mcg Tablet) 75 mcg PO DAILY@0600 [facility] Last Admin: 12/12/24 06:08 Dose: 75 mcg Lidocaine/Diphenhydr/Alum/Mg/Simeth (Mag&Al/Sim/Diphenhyd/Lidocaine 10 Ml Oral.Susp) 10 ml PO Q6H PRN; Protocol PRN Reason: Painful Gums Last Admin: 08/26/24 13:38 Dose: 10 ml Memantine (Memantine Hcl 5 Mg Tablet) 5 mg PO BID [facility] Last Admin: 12/12/24 09:59 Dose: 5 mg Olanzapine (Olanzapine Odt 10 Mg Tab.Rapdis) 5 mg TRANSLINGU Q6H PRN PRN Reason: Agitation Last Admin: 11/01/24 20:50 Dose: 5 mg Polyethylene Glycol (Polyethylene Glycol 3350 17 Gm Powd.Pack) 17 gm PO DAILY PRN PRN Reason: constipation Senna/Docusate Sodium (Sennosides/Docusate Sodium Tablet) 1 tab PO BID [facility] Last Admin: 12/12/24 09:59 Dose: 1 tab Vitamin D (Cholecalciferol (Vitamin D3) 25 Mcg Tablet) 50 mcg PO DAILY [facility] Last Admin: 12/12/24 09:59 Dose: 50 mcg Allergies Allergies Allergy/AdvReac Type Severity Reaction Status Date / Time meperidine [From Demerol] AdvReac Intermediate Rash Verified 08/23/24 19:34 morphine AdvReac Intermediate Rash Verified 08/23/24 19:35 Sulfa (Sulfonamide AdvReac Intermediate Rash Verified 08/23/24 19:36 Antibiotics) Assessment & Plan Assessment & Plan (1) Schizoaffective disorder: Status: Acute Code(s): F25.9 - Schizoaffective disorder, unspecified Plan stable. continue current mgmt. awaiting placement. 12/10/24- no change CTP 12/11/24- patient flat but responsive- CTP 12/12: no change, continue current mgmt. Reason for continued inpatient stay Substantial Risk for: inability to function Time Spent With Patient Time: Total time managing care of this patient today ____ minutes.
[2024-12-12 20:00] VITALS: BP 123/84; PULSE 88; RESP 16; TEMP 36.4; O2SAT 97
[2024-12-13 08:31] VITALS: BP 116/55; PULSE 95; RESP 18; TEMP 36.7; O2SAT 96
[2024-12-13] MEDS: ARIPiprazole 30 MG TABLET PO (08:33)
--- NOTE | 2024-12-13 12:15 | HO.PSYCHPN ---
Subjective Subjective Date of Service: 12/13/24 Reason For Visit: bipolar 1 disorder current or most recent epi Interim History: no change in presentation. lying in bed, awake. per staff, denies pain. denies anx/dep. weaker due to lying in bed for so much of the day. OT encouraged pt to be up and about more. Mental Status Exam Mental Status Exam Narrative: Appearance: adequately dressed and groomed Psychomotor: some retardation Speech: mostly clear, less latency, minimally spontaneous TP: [place] TC: no questions or complaints Mood: good Affect: Flat SI: none expressed HI: none expressed VH/AH: none evidenced Delusions: no overt delusional content noted or reported Insight/judgment: impaired . Diagnostics Vital Signs (24Hr): Vital Signs - 24 hr 12/12/24 20:00 12/13/24 08:31 Temperature 97.6 F 98.1 F Pulse Rate 88 95 Respiratory Rate 16 18 Blood Pressure 123/84 116/55 L Pulse Oximetry 97 96 Oxygen Delivery Method Room Air Room Air BMI result Body Mass Index 22.6 Labs 11/15/24 11:02 11/15/24 11:02 Imaging Radiology Impressions: ITS Impressions Head CT 08/25/24 11:33 IMPRESSION: No acute intracranial abnormality. Electronically signed by: Cj Colunga MD 08/25/2024 12:12 PM EST RP KUB X-Ray 10/28/24 09:50 IMPRESSION: Abundant stool without intestinal obstruction pattern. Electronically signed by: Audie Uribe MD 10/28/2024 10:02 AM EDT RP Medications Medications Current Medications Aripiprazole (Aripiprazole 30 Mg Tablet) 30 mg PO DAILY [facility] Last Admin: 12/13/24 08:33 Dose: 30 mg Benzocaine (Throat Lozenge, Medicated Lozenge) 1 lozenge MUCOUS MEM Q1H PRN PRN Reason: Sore Throat Last Admin: 09/01/24 06:09 Dose: 1 lozenge Guaifenesin/Dextromethorphan (Guaifenesin Dm 200/20/10 Ml 10 Ml Syrup) 10 ml PO Q4H PRN PRN Reason: Cough Last Admin: 08/30/24 05:47 Dose: 10 ml Levothyroxine Sodium (Levothyroxine Sodium 75 Mcg Tablet) 75 mcg PO DAILY@0600 [facility] Last Admin: 12/13/24 06:37 Dose: 75 mcg Lidocaine/Diphenhydr/Alum/Mg/Simeth (Mag&Al/Sim/Diphenhyd/Lidocaine 10 Ml Oral.Susp) 10 ml PO Q6H PRN; Protocol PRN Reason: Painful Gums Last Admin: 08/26/24 13:38 Dose: 10 ml Memantine (Memantine Hcl 5 Mg Tablet) 5 mg PO BID [facility] Last Admin: 12/13/24 08:32 Dose: 5 mg Olanzapine (Olanzapine Odt 10 Mg Tab.Rapdis) 5 mg TRANSLINGU Q6H PRN PRN Reason: Agitation Last Admin: 11/01/24 20:50 Dose: 5 mg Polyethylene Glycol (Polyethylene Glycol 3350 17 Gm Powd.Pack) 17 gm PO DAILY PRN PRN Reason: constipation Senna/Docusate Sodium (Sennosides/Docusate Sodium Tablet) 1 tab PO BID [facility] Last Admin: 12/13/24 08:32 Dose: 1 tab Vitamin D (Cholecalciferol (Vitamin D3) 25 Mcg Tablet) 50 mcg PO DAILY [facility] Last Admin: 12/13/24 08:32 Dose: 50 mcg Allergies Allergies Allergy/AdvReac Type Severity Reaction Status Date / Time meperidine [From Demerol] AdvReac Intermediate Rash Verified 08/23/24 19:34 morphine AdvReac Intermediate Rash Verified 08/23/24 19:35 Sulfa (Sulfonamide AdvReac Intermediate Rash Verified 08/23/24 19:36 Antibiotics) Assessment & Plan Assessment & Plan (1) Schizoaffective disorder: Status: Acute Code(s): F25.9 - Schizoaffective disorder, unspecified Plan stable. continue current mgmt. awaiting placement. 12/10/24- no change CTP 12/11/24- patient flat but responsive- CTP 12/12: no change, continue current mgmt. 12/13: no change, denies any Sx or concerns. appears to be growing weaker due to spending so much time in bed, per OT; pt was encouraged by OT to be up and about more. Reason for continued inpatient stay Substantial Risk for: inability to function Time Spent With Patient Time: Total time managing care of this patient today ____ minutes.
[2024-12-13 20:00] VITALS: BP 108/55; PULSE 83; RESP 18; TEMP 36.4; O2SAT 96
[2024-12-14 08:04] VITALS: BP 121/66; PULSE 92; RESP 16; TEMP 36.6; O2SAT 99
[2024-12-14] MEDS: ARIPiprazole 30 MG TABLET PO (08:05)
--- NOTE | 2024-12-14 13:40 | P.PNPSI_ITS ---
Subjective Subjective Date of Service: 12/14/24 Reason For Visit: bipolar 1 disorder current or most recent epi Interim History: lying in bed, awake. no complaints or requests. per staff, no change. Mental Status Exam Mental Status Exam Narrative: Appearance: adequately dressed and groomed Psychomotor: some retardation Speech: mostly clear, less latency, minimally spontaneous TP: [place] TC: no questions or complaints Mood: good Affect: Flat SI: none expressed HI: none expressed VH/AH: none evidenced Delusions: no overt delusional content noted or reported Insight/judgment: impaired . Diagnostics Vital Signs (24Hr): Vital Signs - 24 hr 12/13/24 20:00 12/14/24 08:04 Temperature 97.6 F 98 F Pulse Rate 83 92 Respiratory Rate 18 16 Blood Pressure 108/55 L 121/66 Pulse Oximetry 96 99 Oxygen Delivery Method Room Air Room Air BMI result Body Mass Index 22.6 Labs 11/15/24 11:02 11/15/24 11:02 Imaging Radiology Impressions: ITS Impressions Head CT 08/25/24 11:33 IMPRESSION: No acute intracranial abnormality. Electronically signed by: Cj Colunga MD 08/25/2024 12:12 PM EST RP KUB X-Ray 10/28/24 09:50 IMPRESSION: Abundant stool without intestinal obstruction pattern. Electronically signed by: Audie Uribe MD 10/28/2024 10:02 AM EDT RP Medications Medications Current Medications Aripiprazole (Aripiprazole 30 Mg Tablet) 30 mg PO DAILY [facility] Last Admin: 12/14/24 08:05 Dose: 30 mg Benzocaine (Throat Lozenge, Medicated Lozenge) 1 lozenge MUCOUS MEM Q1H PRN PRN Reason: Sore Throat Last Admin: 09/01/24 06:09 Dose: 1 lozenge Guaifenesin/Dextromethorphan (Guaifenesin Dm 200/20/10 Ml 10 Ml Syrup) 10 ml PO Q4H PRN PRN Reason: Cough Last Admin: 08/30/24 05:47 Dose: 10 ml Levothyroxine Sodium (Levothyroxine Sodium 75 Mcg Tablet) 75 mcg PO DAILY@0600 [facility] Last Admin: 12/14/24 06:09 Dose: 75 mcg Lidocaine/Diphenhydr/Alum/Mg/Simeth (Mag&Al/Sim/Diphenhyd/Lidocaine 10 Ml Oral.Susp) 10 ml PO Q6H PRN; Protocol PRN Reason: Painful Gums Last Admin: 08/26/24 13:38 Dose: 10 ml Memantine (Memantine Hcl 5 Mg Tablet) 5 mg PO BID [facility] Last Admin: 12/14/24 08:05 Dose: 5 mg Olanzapine (Olanzapine Odt 10 Mg Tab.Rapdis) 5 mg TRANSLINGU Q6H PRN PRN Reason: Agitation Last Admin: 11/01/24 20:50 Dose: 5 mg Polyethylene Glycol (Polyethylene Glycol 3350 17 Gm Powd.Pack) 17 gm PO DAILY PRN PRN Reason: constipation Senna/Docusate Sodium (Sennosides/Docusate Sodium Tablet) 1 tab PO BID [facility] Last Admin: 12/14/24 08:05 Dose: 1 tab Vitamin D (Cholecalciferol (Vitamin D3) 25 Mcg Tablet) 50 mcg PO DAILY [facility] Last Admin: 12/14/24 08:05 Dose: 50 mcg Allergies Allergies Allergy/AdvReac Type Severity Reaction Status Date / Time meperidine (From Demerol) AdvReac Intermediate Rash Verified 08/23/24 19:34 morphine AdvReac Intermediate Rash Verified 08/23/24 19:35 Sulfa (Sulfonamide AdvReac Intermediate Rash Verified 08/23/24 19:36 Antibiotics) Assessment & Plan Assessment & Plan (1) Schizoaffective disorder: Status: Acute Code(s): F25.9 - Schizoaffective disorder, unspecified Plan stable. continue current mgmt. awaiting placement. 12/10/24- no change CTP 12/11/24- patient flat but responsive- CTP 12/12: no change, continue current mgmt. 12/13: no change, denies any Sx or concerns. appears to be growing weaker due to spending so much time in bed, per OT; pt was encouraged by OT to be up and about more. 12/14: no change. continue current mgmt. Reason for continued inpatient stay Substantial Risk for: inability to function Time Spent With Patient Time: Total time managing care of this patient today ____ minutes.
[2024-12-14 20:00] VITALS: BP 99/60; PULSE 83; TEMP 36.6; O2SAT 96
[2024-12-15 08:00] VITALS: BP 150/75; PULSE 106; RESP 14; TEMP 36.9; O2SAT 95
[2024-12-15] MEDS: ARIPiprazole 30 MG TABLET PO (08:31)
[2024-12-15 13:45] VITALS: BMI 23.4
[2024-12-15 20:00] VITALS: BP 107/57; PULSE 75; RESP 18; TEMP 36.8; O2SAT 96
--- NOTE | 2024-12-15 21:39 | HO.PSYCHPN ---
Subjective Subjective Date of Service: 12/15/24 Reason For Visit: bipolar 1 disorder current or most recent epi Subjective Notes: Conditional Voluntary Healthcare Proxy: Yes Interim History: Pt sleeping through the night. Mostly in bed but does go out for meals. not social with peers nor staff but no aggression noted. no overt psychosis or delusions. VS stable. reports plan for the day is doing nothing Review of Systems Review of Systems Unremarkable Yes all other systems are reviewed and are negative Mental Status Exam Mental Status Exam Narrative: Appearance: adequately dressed and groomed Psychomotor: some retardation Speech: mostly clear, less latency, minimally spontaneous TP: [place] TC: no questions or complaints Mood: good Affect: Flat SI: none expressed HI: none expressed VH/AH: none evidenced Delusions: no overt delusional content noted or reported Insight/judgment: impaired . Diagnostics Vital Signs (24Hr): Vital Signs - 24 hr 12/15/24 08:00 12/15/24 20:00 Temperature 98.4 F 98.2 F Pulse Rate 106 H 75 Respiratory Rate 14 18 Blood Pressure 150/75 H 107/57 L Pulse Oximetry 95 96 Oxygen Delivery Method Room Air Room Air BMI result Body Mass Index 23.4 Labs 11/15/24 11:02 11/15/24 11:02 Imaging Radiology Impressions: ITS Impressions Head CT 08/25/24 11:33 IMPRESSION: No acute intracranial abnormality. Electronically signed by: Cj Colunga MD 08/25/2024 12:12 PM EST RP KUB X-Ray 10/28/24 09:50 IMPRESSION: Abundant stool without intestinal obstruction pattern. Electronically signed by: Audie Uribe MD 10/28/2024 10:02 AM EDT RP Medications Medications Current Medications Aripiprazole (Aripiprazole 30 Mg Tablet) 30 mg PO DAILY [facility] Last Admin: 12/15/24 08:31 Dose: 30 mg Benzocaine (Throat Lozenge, Medicated Lozenge) 1 lozenge MUCOUS MEM Q1H PRN PRN Reason: Sore Throat Last Admin: 09/01/24 06:09 Dose: 1 lozenge Guaifenesin/Dextromethorphan (Guaifenesin Dm 200/20/10 Ml 10 Ml Syrup) 10 ml PO Q4H PRN PRN Reason: Cough Last Admin: 08/30/24 05:47 Dose: 10 ml Levothyroxine Sodium (Levothyroxine Sodium 75 Mcg Tablet) 75 mcg PO DAILY@0600 [facility] Last Admin: 12/15/24 05:52 Dose: 75 mcg Lidocaine/Diphenhydr/Alum/Mg/Simeth (Mag&Al/Sim/Diphenhyd/Lidocaine 10 Ml Oral.Susp) 10 ml PO Q6H PRN; Protocol PRN Reason: Painful Gums Last Admin: 08/26/24 13:38 Dose: 10 ml Memantine (Memantine Hcl 5 Mg Tablet) 5 mg PO BID [facility] Last Admin: 12/15/24 20:19 Dose: 5 mg Olanzapine (Olanzapine Odt 10 Mg Tab.Rapdis) 5 mg TRANSLINGU Q6H PRN PRN Reason: Agitation Last Admin: 11/01/24 20:50 Dose: 5 mg Polyethylene Glycol (Polyethylene Glycol 3350 17 Gm Powd.Pack) 17 gm PO DAILY PRN PRN Reason: constipation Senna/Docusate Sodium (Sennosides/Docusate Sodium Tablet) 1 tab PO BID [facility] Last Admin: 12/15/24 20:19 Dose: 1 tab Vitamin D (Cholecalciferol (Vitamin D3) 25 Mcg Tablet) 50 mcg PO DAILY [facility] Last Admin: 12/15/24 08:31 Dose: 50 mcg Allergies Allergies Allergy/AdvReac Type Severity Reaction Status Date / Time meperidine (From Demerol) AdvReac Intermediate Rash Verified 08/23/24 19:34 morphine AdvReac Intermediate Rash Verified 08/23/24 19:35 Sulfa (Sulfonamide AdvReac Intermediate Rash Verified 08/23/24 19:36 Antibiotics) Assessment & Plan Assessment & Plan (1) Schizoaffective disorder: Status: Acute Code(s): F25.9 - Schizoaffective disorder, unspecified Plan stable. continue current mgmt. awaiting placement. 12/10/24- no change CTP 12/11/24- patient flat but responsive- CTP 12/12: no change, continue current mgmt. 12/13: no change, denies any Sx or concerns. appears to be growing weaker due to spending so much time in bed, per OT; pt was encouraged by OT to be up and about more. 12/14: no change. continue current mgmt. 12/15 continue tx . Reason for continued inpatient stay Substantial Risk for: inability to function Time Spent With Patient Time: Total time managing care of this patient today ____ minutes.
[2024-12-16 07:50] VITALS: BP 134/65; PULSE 82; RESP 16; TEMP 36.7; O2SAT 97
[2024-12-16] MEDS: ARIPiprazole 30 MG TABLET PO (08:29)
--- NOTE | 2024-12-16 08:53 | HO.PSYCHPN ---
Subjective Subjective Date of Service: 12/16/24 Reason For Visit: bipolar 1 disorder current or most recent epi Subjective Notes: Conditional Voluntary Healthcare Proxy: Yes Interim History: Pt sleeping through the night. Mostly in bed but does go out for meals. not social with peers nor staff but no aggression noted. no overt psychosis or delusions. VS stable. desnies any concerns, awaiting placement. Medication Compliance: Yes Review of Systems Review of Systems Unremarkable Yes all other systems are reviewed and are negative Mental Status Exam Mental Status Exam Narrative: Appearance: adequately dressed and groomed Psychomotor: some retardation Speech: mostly clear, less latency, minimally spontaneous TP: [place] TC: no questions or complaints Mood: good Affect: Flat SI: none expressed HI: none expressed VH/AH: none evidenced Delusions: no overt delusional content noted or reported Insight/judgment: impaired . Diagnostics Vital Signs (24Hr): Vital Signs - 24 hr 12/15/24 20:00 12/16/24 07:50 Temperature 98.2 F 98.1 F Pulse Rate 75 82 Respiratory Rate 18 16 Blood Pressure 107/57 L 134/65 Pulse Oximetry 96 97 Oxygen Delivery Method Room Air Room Air BMI result Body Mass Index 23.4 Labs 11/15/24 11:02 11/15/24 11:02 Imaging Radiology Impressions: ITS Impressions Head CT 08/25/24 11:33 IMPRESSION: No acute intracranial abnormality. Electronically signed by: Cj Colunga MD 08/25/2024 12:12 PM EST RP KUB X-Ray 10/28/24 09:50 IMPRESSION: Abundant stool without intestinal obstruction pattern. Electronically signed by: Audie Uribe MD 10/28/2024 10:02 AM EDT RP Medications Medications Current Medications Aripiprazole (Aripiprazole 30 Mg Tablet) 30 mg PO DAILY [facility] Last Admin: 12/16/24 08:29 Dose: 30 mg Benzocaine (Throat Lozenge, Medicated Lozenge) 1 lozenge MUCOUS MEM Q1H PRN PRN Reason: Sore Throat Last Admin: 09/01/24 06:09 Dose: 1 lozenge Guaifenesin/Dextromethorphan (Guaifenesin Dm 200/20/10 Ml 10 Ml Syrup) 10 ml PO Q4H PRN PRN Reason: Cough Last Admin: 08/30/24 05:47 Dose: 10 ml Levothyroxine Sodium (Levothyroxine Sodium 75 Mcg Tablet) 75 mcg PO DAILY@0600 [facility] Last Admin: 12/16/24 05:30 Dose: 75 mcg Lidocaine/Diphenhydr/Alum/Mg/Simeth (Mag&Al/Sim/Diphenhyd/Lidocaine 10 Ml Oral.Susp) 10 ml PO Q6H PRN; Protocol PRN Reason: Painful Gums Last Admin: 08/26/24 13:38 Dose: 10 ml Memantine (Memantine Hcl 5 Mg Tablet) 5 mg PO BID [facility] Last Admin: 12/16/24 08:29 Dose: 5 mg Olanzapine (Olanzapine Odt 10 Mg Tab.Rapdis) 5 mg TRANSLINGU Q6H PRN PRN Reason: Agitation Last Admin: 11/01/24 20:50 Dose: 5 mg Polyethylene Glycol (Polyethylene Glycol 3350 17 Gm Powd.Pack) 17 gm PO DAILY PRN PRN Reason: constipation Senna/Docusate Sodium (Sennosides/Docusate Sodium Tablet) 1 tab PO BID [facility] Last Admin: 12/16/24 08:29 Dose: 1 tab Vitamin D (Cholecalciferol (Vitamin D3) 25 Mcg Tablet) 50 mcg PO DAILY [facility] Last Admin: 12/16/24 08:29 Dose: 50 mcg Allergies Allergies Allergy/AdvReac Type Severity Reaction Status Date / Time meperidine (From Demerol) AdvReac Intermediate Rash Verified 08/23/24 19:34 morphine AdvReac Intermediate Rash Verified 08/23/24 19:35 Sulfa (Sulfonamide AdvReac Intermediate Rash Verified 08/23/24 19:36 Antibiotics) Assessment & Plan Assessment & Plan (1) Schizoaffective disorder: Status: Acute Code(s): F25.9 - Schizoaffective disorder, unspecified Plan stable. continue current mgmt. awaiting placement. 12/10/24- no change CTP 12/11/24- patient flat but responsive- CTP 12/12: no change, continue current mgmt. 12/13: no change, denies any Sx or concerns. appears to be growing weaker due to spending so much time in bed, per OT; pt was encouraged by OT to be up and about more. 12/14: no change. continue current mgmt. 12/15 continue tx . 12/16 continue tx. Reason for continued inpatient stay Substantial Risk for: inability to function Time Spent With Patient Time: Total time managing care of this patient today ____ minutes.
[2024-12-16 20:00] VITALS: BP 139/67; PULSE 68; RESP 16; TEMP 36.8; O2SAT 97
[2024-12-17 08:00] VITALS: BP 131/62; PULSE 99; RESP 16; TEMP 36.7; O2SAT 98
[2024-12-17] MEDS: ARIPiprazole 30 MG TABLET PO (08:52)
--- NOTE | 2024-12-17 12:25 | P.PNPSI_ITS ---
Subjective Subjective Date of Service: 12/17/24 Reason For Visit: bipolar 1 disorder current or most recent epi Subjective Notes: Conditional Voluntary Interim History: Patient was seen and discussed in rounds today. Records and plans were reviewed. She continues to be mostly in her room except for meals. She has been incontinent of stool also. That appears to be for lack of making any effort to make it to the bathroom. No dangerous behaviors Review of Systems Review of Systems Unremarkable Yes all other systems are reviewed and are negative Mental Status Exam Mental Status Exam Narrative: In today's visit she is alert, pleasant and minimally interactive. Speech is soft-spoken. Little eye contact. No acute signs of psychosis. Cognitively is impaired. No dangerous behaviors or SI reported. Judgment is impaired Diagnostics Vital Signs (24Hr): Vital Signs - 24 hr 12/16/24 20:00 12/17/24 08:00 Temperature 98.2 F 98.1 F Pulse Rate 68 99 Respiratory Rate 16 16 Blood Pressure 139/67 131/62 Pulse Oximetry 97 98 Oxygen Delivery Method Room Air Room Air BMI result Body Mass Index 23.4 Labs 11/15/24 11:02 11/15/24 11:02 Imaging Radiology Impressions: ITS Impressions Head CT 08/25/24 11:33 IMPRESSION: No acute intracranial abnormality. Electronically signed by: Cj Colunga MD 08/25/2024 12:12 PM EST RP KUB X-Ray 10/28/24 09:50 IMPRESSION: Abundant stool without intestinal obstruction pattern. Electronically signed by: Audie Uribe MD 10/28/2024 10:02 AM EDT RP Medications Medications Current Medications Acetaminophen (Acetaminophen 325 Mg Tablet) 325 mg PO Q6H PRN PRN Reason: Pain, Mild (Pain Scale 1-3) Aripiprazole (Aripiprazole 30 Mg Tablet) 30 mg PO DAILY [facility] Last Admin: 12/17/24 08:52 Dose: 30 mg Benzocaine (Throat Lozenge, Medicated Lozenge) 1 lozenge MUCOUS MEM Q1H PRN PRN Reason: Sore Throat Last Admin: 09/01/24 06:09 Dose: 1 lozenge Guaifenesin/Dextromethorphan (Guaifenesin Dm 200/20/10 Ml 10 Ml Syrup) 10 ml PO Q4H PRN PRN Reason: Cough Last Admin: 08/30/24 05:47 Dose: 10 ml Levothyroxine Sodium (Levothyroxine Sodium 75 Mcg Tablet) 75 mcg PO DAILY@0600 [facility] Last Admin: 12/17/24 06:18 Dose: 75 mcg Lidocaine/Diphenhydr/Alum/Mg/Simeth (Mag&Al/Sim/Diphenhyd/Lidocaine 10 Ml Oral.Susp) 10 ml PO Q6H PRN; Protocol PRN Reason: Painful Gums Last Admin: 08/26/24 13:38 Dose: 10 ml Memantine (Memantine Hcl 5 Mg Tablet) 5 mg PO BID [facility] Last Admin: 12/17/24 08:52 Dose: 5 mg Olanzapine (Olanzapine Odt 10 Mg Tab.Rapdis) 5 mg TRANSLINGU Q6H PRN PRN Reason: Agitation Last Admin: 11/01/24 20:50 Dose: 5 mg Polyethylene Glycol (Polyethylene Glycol 3350 17 Gm Powd.Pack) 17 gm PO DAILY PRN PRN Reason: constipation Senna/Docusate Sodium (Sennosides/Docusate Sodium Tablet) 1 tab PO BID [facility] Last Admin: 12/17/24 08:52 Dose: 1 tab Vitamin D (Cholecalciferol (Vitamin D3) 25 Mcg Tablet) 50 mcg PO DAILY [facility] Last Admin: 12/17/24 08:52 Dose: 50 mcg Allergies Allergies Allergy/AdvReac Type Severity Reaction Status Date / Time meperidine (From Demerol) AdvReac Intermediate Rash Verified 08/23/24 19:34 morphine AdvReac Intermediate Rash Verified 08/23/24 19:35 Sulfa (Sulfonamide AdvReac Intermediate Rash Verified 08/23/24 19:36 Antibiotics) Assessment & Plan Assessment & Plan (1) Schizoaffective disorder: Status: Acute Code(s): F25.9 - Schizoaffective disorder, unspecified Plan stable. continue current mgmt. awaiting placement. 12/10/24- no change CTP 12/11/24- patient flat but responsive- CTP 12/12: no change, continue current mgmt. 12/13: no change, denies any Sx or concerns. appears to be growing weaker due to spending so much time in bed, per OT; pt was encouraged by OT to be up and about more. 12/14: no change. continue current mgmt. 12/15 continue tx . 12/16 continue tx. 12/17: Continue current regimen and plans Reason for continued inpatient stay Substantial Risk for: inability to function Time Spent With Patient Time: Total time managing care of this patient today ____ minutes.
[2024-12-17 19:31] VITALS: BP 107/55; PULSE 87; RESP 16; TEMP 37.3; O2SAT 95
[2024-12-17 22:59] LABS: Appearance Urine Clear; Glucose Urine UA Negative (Negative); PH 5.5 (5.0-9.0); Specific Gravity - Urine 1.010 (1.005-1.025); UMIC TRIGGER UA YES
[2024-12-18 04:59] VITALS: TEMP 36.8
[2024-12-18 07:53] VITALS: BP 124/58; PULSE 79; RESP 18; TEMP 37.1; O2SAT 99
[2024-12-18] MEDS: ARIPiprazole 30 MG TABLET PO (08:31)
--- NOTE | 2024-12-18 11:25 | P.PNPSI_ITS ---
Subjective Subjective Date of Service: 12/18/24 Reason For Visit: bipolar 1 disorder current or most recent epi Subjective Notes: Conditional Voluntary Interim History: Patient was seen and discussed in rounds today. Records and plans were reviewed. She continues to be isolative and on her bed. Some incontinence persisting. Medication compliant. No complaints or side effects. Review of Systems Review of Systems Yes all other systems are reviewed and are negative Mental Status Exam Mental Status Exam Narrative: In today's visit she is alert, pleasant and minimally interactive. Speech is soft-spoken. Little eye contact. No acute signs of psychosis. Cognitively is impaired. No dangerous behaviors or SI reported. Judgment is impaired Diagnostics Vital Signs (24Hr): Vital Signs - 24 hr 12/17/24 19:31 12/18/24 04:59 12/18/24 07:53 Temperature 99.1 F 98.2 F 98.7 F Pulse Rate 87 79 Respiratory Rate 16 18 Blood Pressure 107/55 L 124/58 L Pulse Oximetry 95 99 Oxygen Delivery Method Room Air Room Air BMI result Body Mass Index 23.4 Labs 11/15/24 11:02 11/15/24 11:02 Labs: Laboratory Results - last 48 hr 12/17/24 22:48 Urine Color Yellow Urine Appearance Clear Urine pH 5.5 Ur Specific [place] 1.010 Urine Protein Negative Urine Glucose (UA) Negative Urine Ketones Negative Urine Blood Negative Urine Nitrite Negative Ur Leukocyte Esterase Trace H Urine RBC 0-2 Urine WBC 0-5 Ur Squamous Epith Cells 0-2 Urine Bacteria None Seen Hyaline Casts 0-2 Imaging Radiology Impressions: ITS Impressions Head CT 08/25/24 11:33 IMPRESSION: No acute intracranial abnormality. Electronically signed by: Cj Colunga MD 08/25/2024 12:12 PM EST RP KUB X-Ray 10/28/24 09:50 IMPRESSION: Abundant stool without intestinal obstruction pattern. Electronically signed by: Audie Uribe MD 10/28/2024 10:02 AM EDT RP Medications Medications Current Medications Acetaminophen (Acetaminophen 325 Mg Tablet) 325 mg PO Q6H PRN PRN Reason: Pain, Mild (Pain Scale 1-3) Aripiprazole (Aripiprazole 30 Mg Tablet) 30 mg PO DAILY [facility] Last Admin: 12/18/24 08:31 Dose: 30 mg Benzocaine (Throat Lozenge, Medicated Lozenge) 1 lozenge MUCOUS MEM Q1H PRN PRN Reason: Sore Throat Last Admin: 09/01/24 06:09 Dose: 1 lozenge Guaifenesin/Dextromethorphan (Guaifenesin Dm 200/20/10 Ml 10 Ml Syrup) 10 ml PO Q4H PRN PRN Reason: Cough Last Admin: 08/30/24 05:47 Dose: 10 ml Levothyroxine Sodium (Levothyroxine Sodium 75 Mcg Tablet) 75 mcg PO DAILY@0600 [facility] Last Admin: 12/18/24 04:58 Dose: 75 mcg Lidocaine/Diphenhydr/Alum/Mg/Simeth (Mag&Al/Sim/Diphenhyd/Lidocaine 10 Ml Oral.Susp) 10 ml PO Q6H PRN; Protocol PRN Reason: Painful Gums Last Admin: 08/26/24 13:38 Dose: 10 ml Memantine (Memantine Hcl 5 Mg Tablet) 5 mg PO BID [facility] Last Admin: 12/18/24 08:31 Dose: 5 mg Olanzapine (Olanzapine Odt 10 Mg Tab.Rapdis) 5 mg TRANSLINGU Q6H PRN PRN Reason: Agitation Last Admin: 11/01/24 20:50 Dose: 5 mg Polyethylene Glycol (Polyethylene Glycol 3350 17 Gm Powd.Pack) 17 gm PO DAILY PRN PRN Reason: constipation Senna/Docusate Sodium (Sennosides/Docusate Sodium Tablet) 1 tab PO BID [facility] Last Admin: 12/18/24 08:31 Dose: 1 tab Vitamin D (Cholecalciferol (Vitamin D3) 25 Mcg Tablet) 50 mcg PO DAILY [facility] Last Admin: 12/18/24 08:32 Dose: 50 mcg Allergies Allergies Allergy/AdvReac Type Severity Reaction Status Date / Time meperidine (From Demerol) AdvReac Intermediate Rash Verified 08/23/24 19:34 morphine AdvReac Intermediate Rash Verified 08/23/24 19:35 Sulfa (Sulfonamide AdvReac Intermediate Rash Verified 08/23/24 19:36 Antibiotics) Assessment & Plan Assessment & Plan (1) Schizoaffective disorder: Status: Acute Code(s): F25.9 - Schizoaffective disorder, unspecified Plan stable. continue current mgmt. awaiting placement. 12/10/24- no change CTP 12/11/24- patient flat but responsive- CTP 12/12: no change, continue current mgmt. 12/13: no change, denies any Sx or concerns. appears to be growing weaker due to spending so much time in bed, per OT; pt was encouraged by OT to be up and about more. 12/14: no change. continue current mgmt. 12/15 continue tx . 12/16 continue tx. 12/17: Continue current regimen and plans 12/18: Continue current regimen and plans Reason for continued inpatient stay Substantial Risk for: inability to function Time Spent With Patient Time: Total time managing care of this patient today ____ minutes.
[2024-12-18 19:57] VITALS: BP 106/57; PULSE 74; RESP 18; TEMP 37; O2SAT 96
[2024-12-19 08:00] VITALS: BP 128/70; PULSE 81; RESP 18; TEMP 36.4; O2SAT 98
--- NOTE | 2024-12-19 08:21 | P.PNPSI_ITS ---
Subjective Subjective Date of Service: 12/19/24 Reason For Visit: bipolar 1 disorder current or most recent epi Interim History: no change in presentation. Mental Status Exam Mental Status Exam Narrative: Appearance: adequately dressed and groomed Psychomotor: some retardation Speech: mostly clear, less latency, minimally spontaneous TP: [place] TC: no questions or complaints Mood: good Affect: Flat SI: none expressed HI: none expressed VH/AH: none evidenced Delusions: no overt delusional content noted or reported Insight/judgment: impaired . Diagnostics Vital Signs (24Hr): Vital Signs - 24 hr 12/18/24 19:57 Temperature 98.6 F Pulse Rate 74 Respiratory Rate 18 Blood Pressure 106/57 L Pulse Oximetry 96 Oxygen Delivery Method Room Air BMI result Body Mass Index 23.4 Labs 11/15/24 11:02 11/15/24 11:02 Labs: Laboratory Results - last 48 hr 12/17/24 22:48 Urine Color Yellow Urine Appearance Clear Urine pH 5.5 Ur Specific [place] 1.010 Urine Protein Negative Urine Glucose (UA) Negative Urine Ketones Negative Urine Blood Negative Urine Nitrite Negative Ur Leukocyte Esterase Trace H Urine RBC 0-2 Urine WBC 0-5 Ur Squamous Epith Cells 0-2 Urine Bacteria None Seen Hyaline Casts 0-2 Imaging Radiology Impressions: ITS Impressions Head CT 08/25/24 11:33 IMPRESSION: No acute intracranial abnormality. Electronically signed by: Cj Colunga MD 08/25/2024 12:12 PM EST RP KUB X-Ray 10/28/24 09:50 IMPRESSION: Abundant stool without intestinal obstruction pattern. Electronically signed by: Audie Uribe MD 10/28/2024 10:02 AM EDT RP Medications Medications Current Medications Acetaminophen (Acetaminophen 325 Mg Tablet) 325 mg PO Q6H PRN PRN Reason: Pain, Mild (Pain Scale 1-3) Aripiprazole (Aripiprazole 30 Mg Tablet) 30 mg PO DAILY [facility] Last Admin: 12/18/24 08:31 Dose: 30 mg Benzocaine (Throat Lozenge, Medicated Lozenge) 1 lozenge MUCOUS MEM Q1H PRN PRN Reason: Sore Throat Last Admin: 09/01/24 06:09 Dose: 1 lozenge Guaifenesin/Dextromethorphan (Guaifenesin Dm 200/20/10 Ml 10 Ml Syrup) 10 ml PO Q4H PRN PRN Reason: Cough Last Admin: 08/30/24 05:47 Dose: 10 ml Levothyroxine Sodium (Levothyroxine Sodium 75 Mcg Tablet) 75 mcg PO DAILY@0600 [facility] Last Admin: 12/19/24 06:23 Dose: 75 mcg Lidocaine/Diphenhydr/Alum/Mg/Simeth (Mag&Al/Sim/Diphenhyd/Lidocaine 10 Ml Oral.Susp) 10 ml PO Q6H PRN; Protocol PRN Reason: Painful Gums Last Admin: 08/26/24 13:38 Dose: 10 ml Memantine (Memantine Hcl 5 Mg Tablet) 5 mg PO BID [facility] Last Admin: 12/18/24 20:26 Dose: 5 mg Olanzapine (Olanzapine Odt 10 Mg Tab.Rapdis) 5 mg TRANSLINGU Q6H PRN PRN Reason: Agitation Last Admin: 11/01/24 20:50 Dose: 5 mg Polyethylene Glycol (Polyethylene Glycol 3350 17 Gm Powd.Pack) 17 gm PO DAILY PRN PRN Reason: constipation Senna/Docusate Sodium (Sennosides/Docusate Sodium Tablet) 1 tab PO BID [facility] Last Admin: 12/18/24 20:26 Dose: 1 tab Vitamin D (Cholecalciferol (Vitamin D3) 25 Mcg Tablet) 50 mcg PO DAILY [facility] Last Admin: 12/18/24 08:32 Dose: 50 mcg Allergies Allergies Allergy/AdvReac Type Severity Reaction Status Date / Time meperidine (From Demerol) AdvReac Intermediate Rash Verified 08/23/24 19:34 morphine AdvReac Intermediate Rash Verified 08/23/24 19:35 Sulfa (Sulfonamide AdvReac Intermediate Rash Verified 08/23/24 19:36 Antibiotics) Assessment & Plan Assessment & Plan (1) Schizoaffective disorder: Status: Acute Code(s): F25.9 - Schizoaffective disorder, unspecified Plan stable. continue current mgmt. awaiting placement. 12/10/24- no change CTP 12/11/24- patient flat but responsive- CTP 12/12: no change, continue current mgmt. 12/13: no change, denies any Sx or concerns. appears to be growing weaker due to spending so much time in bed, per OT; pt was encouraged by OT to be up and about more. 12/14: no change. continue current mgmt. 12/15 continue tx . 12/16 continue tx. 12/17: Continue current regimen and plans 12/18: Continue current regimen and plans 12/19: stable. continue current mgmt. Reason for continued inpatient stay Substantial Risk for: inability to function Time Spent With Patient Time: Total time managing care of this patient today ____ minutes.
[2024-12-19] MEDS: ARIPiprazole 30 MG TABLET PO (08:33)
[2024-12-19 20:00] VITALS: BP 114/57; PULSE 74; RESP 16; TEMP 36.8; O2SAT 96
[2024-12-20 08:00] VITALS: BP 122/65; PULSE 78; RESP 16; TEMP 36.6; O2SAT 99
[2024-12-20] MEDS: ARIPiprazole 30 MG TABLET PO (08:47)
--- NOTE | 2024-12-20 18:51 | P.PNPSI_ITS ---
Subjective Subjective Date of Service: 12/20/24 Reason For Visit: bipolar 1 disorder current or most recent epi Interim History: no concerns, no change in presentation. Mental Status Exam Mental Status Exam Narrative: Appearance: adequately dressed and groomed Psychomotor: some retardation Speech: mostly clear, less latency, minimally spontaneous TP: [place] TC: no questions or complaints Mood: good Affect: Flat SI: none expressed HI: none expressed VH/AH: none evidenced Delusions: no overt delusional content noted or reported Insight/judgment: impaired . Diagnostics Vital Signs (24Hr): Vital Signs - 24 hr 12/19/24 20:00 12/20/24 08:00 Temperature 98.3 F 97.9 F Pulse Rate 74 78 Respiratory Rate 16 16 Blood Pressure 114/57 L 122/65 Pulse Oximetry 96 99 Oxygen Delivery Method Room Air Room Air BMI result Body Mass Index 23.4 Labs 11/15/24 11:02 11/15/24 11:02 Imaging Radiology Impressions: ITS Impressions Head CT 08/25/24 11:33 IMPRESSION: No acute intracranial abnormality. Electronically signed by: Cj Colunga MD 08/25/2024 12:12 PM EST RP KUB X-Ray 10/28/24 09:50 IMPRESSION: Abundant stool without intestinal obstruction pattern. Electronically signed by: Audie Uribe MD 10/28/2024 10:02 AM EDT RP Medications Medications Current Medications Acetaminophen (Acetaminophen 325 Mg Tablet) 325 mg PO Q6H PRN PRN Reason: Pain, Mild (Pain Scale 1-3) Aripiprazole (Aripiprazole 30 Mg Tablet) 30 mg PO DAILY [facility] Last Admin: 12/20/24 08:47 Dose: 30 mg Benzocaine (Throat Lozenge, Medicated Lozenge) 1 lozenge MUCOUS MEM Q1H PRN PRN Reason: Sore Throat Last Admin: 09/01/24 06:09 Dose: 1 lozenge Guaifenesin/Dextromethorphan (Guaifenesin Dm 200/20/10 Ml 10 Ml Syrup) 10 ml PO Q4H PRN PRN Reason: Cough Last Admin: 08/30/24 05:47 Dose: 10 ml Levothyroxine Sodium (Levothyroxine Sodium 75 Mcg Tablet) 75 mcg PO DAILY@0600 [facility] Last Admin: 12/20/24 05:56 Dose: 75 mcg Lidocaine/Diphenhydr/Alum/Mg/Simeth (Mag&Al/Sim/Diphenhyd/Lidocaine 10 Ml Oral.Susp) 10 ml PO Q6H PRN; Protocol PRN Reason: Painful Gums Last Admin: 08/26/24 13:38 Dose: 10 ml Memantine (Memantine Hcl 5 Mg Tablet) 5 mg PO BID [facility] Last Admin: 12/20/24 08:47 Dose: 5 mg Olanzapine (Olanzapine Odt 10 Mg Tab.Rapdis) 5 mg TRANSLINGU Q6H PRN PRN Reason: Agitation Last Admin: 11/01/24 20:50 Dose: 5 mg Polyethylene Glycol (Polyethylene Glycol 3350 17 Gm Powd.Pack) 17 gm PO DAILY PRN PRN Reason: constipation Senna/Docusate Sodium (Sennosides/Docusate Sodium Tablet) 1 tab PO BID [facility] Last Admin: 12/20/24 08:47 Dose: 1 tab Vitamin D (Cholecalciferol (Vitamin D3) 25 Mcg Tablet) 50 mcg PO DAILY [facility] Last Admin: 12/20/24 08:47 Dose: 50 mcg Allergies Allergies Allergy/AdvReac Type Severity Reaction Status Date / Time meperidine (From Demerol) AdvReac Intermediate Rash Verified 08/23/24 19:34 morphine AdvReac Intermediate Rash Verified 08/23/24 19:35 Sulfa (Sulfonamide AdvReac Intermediate Rash Verified 08/23/24 19:36 Antibiotics) Assessment & Plan Assessment & Plan (1) Schizoaffective disorder: Status: Acute Code(s): F25.9 - Schizoaffective disorder, unspecified Plan stable. continue current mgmt. awaiting placement. 12/10/24- no change CTP 12/11/24- patient flat but responsive- CTP 12/12: no change, continue current mgmt. 12/13: no change, denies any Sx or concerns. appears to be growing weaker due to spending so much time in bed, per OT; pt was encouraged by OT to be up and about more. 12/14: no change. continue current mgmt. 12/15 continue tx . 12/16 continue tx. 12/17: Continue current regimen and plans 12/18: Continue current regimen and plans 12/19: stable. continue current mgmt. 12/20: no change in presentation. continue current mgmt. Reason for continued inpatient stay Substantial Risk for: inability to function Time Spent With Patient Time: Total time managing care of this patient today ____ minutes.
[2024-12-20 19:57] VITALS: BP 95/53; PULSE 78; RESP 18; TEMP 37.1; O2SAT 95
[2024-12-20 20:00] VITALS: BP 95/53; PULSE 78; RESP 16; TEMP 37.1; O2SAT 95
[2024-12-21 08:00] VITALS: BP 118/57; PULSE 81; RESP 15; TEMP 36.8; O2SAT 97
[2024-12-21] MEDS: ARIPiprazole 30 MG TABLET PO (09:06)
--- NOTE | 2024-12-21 13:37 | P.PNPSI_ITS ---
Subjective Subjective Date of Service: 12/21/24 Reason For Visit: bipolar 1 disorder current or most recent epi Interim History: no change, feeling fine, no requests or complaints. Mental Status Exam Mental Status Exam Narrative: Appearance: adequately dressed and groomed Psychomotor: some retardation Speech: mostly clear, less latency, minimally spontaneous TP: [place] TC: no questions or complaints Mood: fine Affect: Flat SI: none expressed HI: none expressed VH/AH: none evidenced Delusions: no overt delusional content noted or reported Insight/judgment: impaired . Diagnostics Vital Signs (24Hr): Vital Signs - 24 hr 12/20/24 19:57 12/20/24 20:00 12/21/24 08:00 Temperature 98.8 F 98.8 F 98.3 F Pulse Rate 78 78 81 Respiratory Rate 18 16 15 Blood Pressure 95/53 L 95/53 L 118/57 L Pulse Oximetry 95 95 97 Oxygen Delivery Method Room Air Room Air Room Air BMI result Body Mass Index 23.4 Labs 11/15/24 11:02 11/15/24 11:02 Imaging Radiology Impressions: ITS Impressions Head CT 08/25/24 11:33 IMPRESSION: No acute intracranial abnormality. Electronically signed by: Cj Colunga MD 08/25/2024 12:12 PM EST RP [facility] X-Ray 10/28/24 09:50 IMPRESSION: Abundant stool without intestinal obstruction pattern. Electronically signed by: Auide Uribe MD 10/28/2024 10:02 AM EDT RP Medications Medications Current Medications Acetaminophen (Acetaminophen 325 Mg Tablet) 325 mg PO Q6H PRN PRN Reason: Pain, Mild (Pain Scale 1-3) Aripiprazole (Aripiprazole 30 Mg Tablet) 30 mg PO DAILY [facility] Last Admin: 12/21/24 09:06 Dose: 30 mg Benzocaine (Throat Lozenge, Medicated Lozenge) 1 lozenge MUCOUS MEM Q1H PRN PRN Reason: Sore Throat Last Admin: 09/01/24 06:09 Dose: 1 lozenge Guaifenesin/Dextromethorphan (Guaifenesin Dm 200/20/10 Ml 10 Ml Syrup) 10 ml PO Q4H PRN PRN Reason: Cough Last Admin: 08/30/24 05:47 Dose: 10 ml Levothyroxine Sodium (Levothyroxine Sodium 75 Mcg Tablet) 75 mcg PO DAILY@0600 [facility] Last Admin: 12/21/24 06:17 Dose: 75 mcg Lidocaine/Diphenhydr/Alum/Mg/Simeth (Mag&Al/Sim/Diphenhyd/Lidocaine 10 Ml Oral.Susp) 10 ml PO Q6H PRN; Protocol PRN Reason: Painful Gums Last Admin: 08/26/24 13:38 Dose: 10 ml Memantine (Memantine Hcl 5 Mg Tablet) 5 mg PO BID [facility] Last Admin: 12/21/24 09:06 Dose: 5 mg Olanzapine (Olanzapine Odt 10 Mg Tab.Rapdis) 5 mg TRANSLINGU Q6H PRN PRN Reason: Agitation Last Admin: 11/01/24 20:50 Dose: 5 mg Polyethylene Glycol (Polyethylene Glycol 3350 17 Gm Powd.Pack) 17 gm PO DAILY PRN PRN Reason: constipation Senna/Docusate Sodium (Sennosides/Docusate Sodium Tablet) 1 tab PO BID [facility] Last Admin: 12/21/24 09:06 Dose: 1 tab Vitamin D (Cholecalciferol (Vitamin D3) 25 Mcg Tablet) 50 mcg PO DAILY [facility] Last Admin: 12/21/24 09:06 Dose: 50 mcg Allergies Allergies Allergy/AdvReac Type Severity Reaction Status Date / Time meperidine (From Demerol) AdvReac Intermediate Rash Verified 08/23/24 19:34 morphine AdvReac Intermediate Rash Verified 08/23/24 19:35 Sulfa (Sulfonamide AdvReac Intermediate Rash Verified 08/23/24 19:36 Antibiotics) Assessment & Plan Assessment & Plan (1) Schizoaffective disorder: Status: Acute Code(s): F25.9 - Schizoaffective disorder, unspecified Plan stable. continue current mgmt. awaiting placement. 12/10/24- no change CTP 12/11/24- patient flat but responsive- CTP 12/12: no change, continue current mgmt. 12/13: no change, denies any Sx or concerns. appears to be growing weaker due to spending so much time in bed, per OT; pt was encouraged by OT to be up and about more. 12/14: no change. continue current mgmt. 12/15 continue tx . 12/16 continue tx. 12/17: Continue current regimen and plans 12/18: Continue current regimen and plans 12/19: stable. continue current mgmt. 12/20: no change in presentation. continue current mgmt. 12/21: continues as per prior. awaiting placement. Reason for continued inpatient stay Substantial Risk for: inability to function Time Spent With Patient Time: Total time managing care of this patient today ____ minutes.
[2024-12-21 20:00] VITALS: BP 134/62; PULSE 68; RESP 16; TEMP 37; O2SAT 95
--- NOTE | 2024-12-21 21:46 | PC.NURSE ---
Pt had an episode of diarrhea this evening Nakul held, Darryn Herrera [employer] notified.
[2024-12-22 08:00] VITALS: BP 127/93; PULSE 72; RESP 16; TEMP 36.6; O2SAT 95
[2024-12-22] MEDS: ARIPiprazole 30 MG TABLET PO (08:52)
[2024-12-22 10:00] VITALS: BMI 23.1
--- NOTE | 2024-12-22 12:46 | HO.PSYCHPN ---
Subjective Subjective Date of Service: 12/22/24 Reason For Visit: bipolar 1 disorder current or most recent epi Interim History: no change in presentation. per staff, slept 7 hours, no notable events or behaviors. Mental Status Exam Mental Status Exam Narrative: Appearance: adequately dressed and groomed Psychomotor: some retardation Speech: mostly clear, less latency, minimally spontaneous TP: [place] TC: no questions or complaints Mood: fine Affect: Flat SI: none expressed HI: none expressed VH/AH: none evidenced Delusions: no overt delusional content noted or reported Insight/judgment: impaired . Diagnostics Vital Signs (24Hr): Vital Signs - 24 hr 12/21/24 20:00 12/22/24 08:00 Temperature 98.6 F 97.9 F Pulse Rate 68 72 Respiratory Rate 16 16 Blood Pressure 134/62 127/93 H Pulse Oximetry 95 95 Oxygen Delivery Method Room Air Room Air BMI result Body Mass Index 23.4 Labs 11/15/24 11:02 11/15/24 11:02 Imaging Radiology Impressions: ITS Impressions Head CT 08/25/24 11:33 IMPRESSION: No acute intracranial abnormality. Electronically signed by: Cj Colunga MD 08/25/2024 12:12 PM EST RP [facility] X-Ray 10/28/24 09:50 IMPRESSION: Abundant stool without intestinal obstruction pattern. Electronically signed by: Audie Uribe MD 10/28/2024 10:02 AM EDT RP Medications Medications Current Medications Acetaminophen (Acetaminophen 325 Mg Tablet) 325 mg PO Q6H PRN PRN Reason: Pain, Mild (Pain Scale 1-3) Aripiprazole (Aripiprazole 30 Mg Tablet) 30 mg PO DAILY [facility] Last Admin: 12/22/24 08:52 Dose: 30 mg Benzocaine (Throat Lozenge, Medicated Lozenge) 1 lozenge MUCOUS MEM Q1H PRN PRN Reason: Sore Throat Last Admin: 09/01/24 06:09 Dose: 1 lozenge Guaifenesin/Dextromethorphan (Guaifenesin Dm 200/20/10 Ml 10 Ml Syrup) 10 ml PO Q4H PRN PRN Reason: Cough Last Admin: 08/30/24 05:47 Dose: 10 ml Levothyroxine Sodium (Levothyroxine Sodium 75 Mcg Tablet) 75 mcg PO DAILY@0600 [facility] Last Admin: 12/22/24 05:49 Dose: 75 mcg Lidocaine/Diphenhydr/Alum/Mg/Simeth (Mag&Al/Sim/Diphenhyd/Lidocaine 10 Ml Oral.Susp) 10 ml PO Q6H PRN; Protocol PRN Reason: Painful Gums Last Admin: 08/26/24 13:38 Dose: 10 ml Memantine (Memantine Hcl 5 Mg Tablet) 5 mg PO BID [facility] Last Admin: 12/22/24 08:52 Dose: 5 mg Olanzapine (Olanzapine Odt 10 Mg Tab.Rapdis) 5 mg TRANSLINGU Q6H PRN PRN Reason: Agitation Last Admin: 11/01/24 20:50 Dose: 5 mg Polyethylene Glycol (Polyethylene Glycol 3350 17 Gm Powd.Pack) 17 gm PO DAILY PRN PRN Reason: constipation Senna/Docusate Sodium (Sennosides/Docusate Sodium Tablet) 1 tab PO BID [facility] Last Admin: 12/22/24 08:52 Dose: Not Given Vitamin D (Cholecalciferol (Vitamin D3) 25 Mcg Tablet) 50 mcg PO DAILY [facility] Last Admin: 12/22/24 08:52 Dose: 50 mcg Allergies Allergies Allergy/AdvReac Type Severity Reaction Status Date / Time meperidine (From Demerol) AdvReac Intermediate Rash Verified 08/23/24 19:34 morphine AdvReac Intermediate Rash Verified 08/23/24 19:35 Sulfa (Sulfonamide AdvReac Intermediate Rash Verified 08/23/24 19:36 Antibiotics) Assessment & Plan Assessment & Plan (1) Schizoaffective disorder: Status: Acute Code(s): F25.9 - Schizoaffective disorder, unspecified Plan stable. continue current mgmt. awaiting placement. 12/10/24- no change CTP 12/11/24- patient flat but responsive- CTP 12/12: no change, continue current mgmt. 12/13: no change, denies any Sx or concerns. appears to be growing weaker due to spending so much time in bed, per OT; pt was encouraged by OT to be up and about more. 12/14: no change. continue current mgmt. 12/15 continue tx . 12/16 continue tx. 12/17: Continue current regimen and plans 12/18: Continue current regimen and plans 12/19: stable. continue current mgmt. 12/20: no change in presentation. continue current mgmt. 12/21: continues as per prior. awaiting placement. 12/22: continues as per prior. awaiting placement. Reason for continued inpatient stay Substantial Risk for: inability to function Time Spent With Patient Time: Total time managing care of this patient today ____ minutes.
[2024-12-22 20:00] VITALS: BP 123/62; PULSE 68; RESP 17; TEMP 37; O2SAT 98
[2024-12-23 08:42] VITALS: BP 112/70; PULSE 95; RESP 15; TEMP 36.9; O2SAT 97
[2024-12-23] MEDS: ARIPiprazole 30 MG TABLET PO (08:44)
--- NOTE | 2024-12-23 11:58 | HO.PSYCHPN ---
Subjective Subjective Date of Service: 12/23/24 Reason For Visit: bipolar 1 disorder current or most recent epi Subjective Notes: Conditional Voluntary Healthcare Proxy: Yes Guardianship: Yes Interim History: no change in presentation. per staff, slept 7 hours, no notable events or behaviors. She denies SI/HI. no psychosis or delusions. does not engage much with peers or staff. Review of Systems Review of Systems Unremarkable Yes all other systems are reviewed and are negative Mental Status Exam Mental Status Exam Narrative: Appearance: adequately dressed and groomed Psychomotor: some retardation Speech: mostly clear, less latency, minimally spontaneous TP: [place] TC: no questions or complaints Mood: fine Affect: Flat SI: none expressed HI: none expressed VH/AH: none evidenced Delusions: no overt delusional content noted or reported Insight/judgment: impaired . Diagnostics Vital Signs (24Hr): Vital Signs - 24 hr 12/22/24 20:00 12/23/24 08:42 Temperature 98.6 F 98.4 F Pulse Rate 68 95 Respiratory Rate 17 15 Blood Pressure 123/62 112/70 Pulse Oximetry 98 97 Oxygen Delivery Method Room Air Room Air BMI result Body Mass Index 23.1 Labs 11/15/24 11:02 11/15/24 11:02 Imaging Radiology Impressions: ITS Impressions Head CT 08/25/24 11:33 IMPRESSION: No acute intracranial abnormality. Electronically signed by: Cj Colunga MD 08/25/2024 12:12 PM EST RP [facility] X-Ray 10/28/24 09:50 IMPRESSION: Abundant stool without intestinal obstruction pattern. Electronically signed by: Audie Uribe MD 10/28/2024 10:02 AM EDT RP Medications Medications Current Medications Acetaminophen (Acetaminophen 325 Mg Tablet) 325 mg PO Q6H PRN PRN Reason: Pain, Mild (Pain Scale 1-3) Aripiprazole (Aripiprazole 30 Mg Tablet) 30 mg PO DAILY [facility] Last Admin: 12/23/24 08:44 Dose: 30 mg Benzocaine (Throat Lozenge, Medicated Lozenge) 1 lozenge MUCOUS MEM Q1H PRN PRN Reason: Sore Throat Last Admin: 09/01/24 06:09 Dose: 1 lozenge Guaifenesin/Dextromethorphan (Guaifenesin Dm 200/20/10 Ml 10 Ml Syrup) 10 ml PO Q4H PRN PRN Reason: Cough Last Admin: 08/30/24 05:47 Dose: 10 ml Levothyroxine Sodium (Levothyroxine Sodium 75 Mcg Tablet) 75 mcg PO DAILY@0600 [facility] Last Admin: 12/23/24 05:40 Dose: 75 mcg Lidocaine/Diphenhydr/Alum/Mg/Simeth (Mag&Al/Sim/Diphenhyd/Lidocaine 10 Ml Oral.Susp) 10 ml PO Q6H PRN; Protocol PRN Reason: Painful Gums Last Admin: 08/26/24 13:38 Dose: 10 ml Memantine (Memantine Hcl 5 Mg Tablet) 5 mg PO BID [facility] Last Admin: 12/23/24 08:44 Dose: 5 mg Olanzapine (Olanzapine Odt 10 Mg Tab.Rapdis) 5 mg TRANSLINGU Q6H PRN PRN Reason: Agitation Last Admin: 11/01/24 20:50 Dose: 5 mg Polyethylene Glycol (Polyethylene Glycol 3350 17 Gm Powd.Pack) 17 gm PO DAILY PRN PRN Reason: constipation Senna/Docusate Sodium (Sennosides/Docusate Sodium Tablet) 1 tab PO BID [facility] Last Admin: 12/23/24 08:44 Dose: 1 tab Vitamin D (Cholecalciferol (Vitamin D3) 25 Mcg Tablet) 50 mcg PO DAILY [facility] Last Admin: 12/23/24 08:44 Dose: 50 mcg Allergies Allergies Allergy/AdvReac Type Severity Reaction Status Date / Time meperidine (From Demerol) AdvReac Intermediate Rash Verified 08/23/24 19:34 morphine AdvReac Intermediate Rash Verified 08/23/24 19:35 Sulfa (Sulfonamide AdvReac Intermediate Rash Verified 08/23/24 19:36 Antibiotics) Assessment & Plan Assessment & Plan (1) Schizoaffective disorder: Status: Acute Code(s): F25.9 - Schizoaffective disorder, unspecified Plan stable. continue current mgmt. awaiting placement. 12/10/24- no change CTP 12/11/24- patient flat but responsive- CTP 12/12: no change, continue current mgmt. 12/13: no change, denies any Sx or concerns. appears to be growing weaker due to spending so much time in bed, per OT; pt was encouraged by OT to be up and about more. 12/14: no change. continue current mgmt. 12/15 continue tx . 12/16 continue tx. 12/17: Continue current regimen and plans 12/18: Continue current regimen and plans 12/19: stable. continue current mgmt. 12/20: no change in presentation. continue current mgmt. 12/21: continues as per prior. awaiting placement. 12/22: continues as per prior. awaiting placement. 12/23 contine tx. Reason for continued inpatient stay Substantial Risk for: inability to function Time Spent With Patient Time: Total time managing care of this patient today ____ minutes.
[2024-12-23 20:00] VITALS: BP 115/57; PULSE 74; RESP 16; TEMP 36.6; O2SAT 96
[2024-12-24 08:00] VITALS: BP 126/58; PULSE 90; RESP 15; TEMP 36.6; O2SAT 96
[2024-12-24] MEDS: ARIPiprazole 30 MG TABLET PO (09:12)
--- NOTE | 2024-12-24 19:20 | HO.PSYCHPN ---
Subjective Subjective Date of Service: 12/24/24 Reason For Visit: bipolar 1 disorder current or most recent epi Interim History: no change in presentation. per staff, slept 7 hours, no notable events or behaviors. She denies SI/HI. no psychosis or delusions. does not engage much with peers or staff. Review of Systems Review of Systems Unremarkable Yes all other systems are reviewed and are negative Mental Status Exam Mental Status Exam Narrative: Appearance: adequately dressed and groomed Psychomotor: some retardation Speech: mostly clear, less latency, minimally spontaneous TP: [place] TC: no questions or complaints Mood: fine Affect: Flat SI: none expressed HI: none expressed VH/AH: none evidenced Delusions: no overt delusional content noted or reported Insight/judgment: impaired . Diagnostics Vital Signs (24Hr): Vital Signs - 24 hr 12/23/24 20:00 12/24/24 08:00 Temperature 97.9 F 98 F Pulse Rate 74 90 Respiratory Rate 16 15 Blood Pressure 115/57 L 126/58 L Pulse Oximetry 96 96 Oxygen Delivery Method Room Air Room Air BMI result Body Mass Index 23.1 Labs 11/15/24 11:02 11/15/24 11:02 Imaging Radiology Impressions: ITS Impressions Head CT 08/25/24 11:33 IMPRESSION: No acute intracranial abnormality. Electronically signed by: Cj Colunga MD 08/25/2024 12:12 PM EST RP K[facility] X-Ray 10/28/24 09:50 IMPRESSION: Abundant stool without intestinal obstruction pattern. Electronically signed by: Audie Uribe MD 10/28/2024 10:02 AM EDT RP Medications Medications Current Medications Acetaminophen (Acetaminophen 325 Mg Tablet) 325 mg PO Q6H PRN PRN Reason: Pain, Mild (Pain Scale 1-3) Aripiprazole (Aripiprazole 30 Mg Tablet) 30 mg PO DAILY [facility] Last Admin: 12/24/24 09:12 Dose: 30 mg Benzocaine (Throat Lozenge, Medicated Lozenge) 1 lozenge MUCOUS MEM Q1H PRN PRN Reason: Sore Throat Last Admin: 09/01/24 06:09 Dose: 1 lozenge Guaifenesin/Dextromethorphan (Guaifenesin Dm 200/20/10 Ml 10 Ml Syrup) 10 ml PO Q4H PRN PRN Reason: Cough Last Admin: 08/30/24 05:47 Dose: 10 ml Levothyroxine Sodium (Levothyroxine Sodium 75 Mcg Tablet) 75 mcg PO DAILY@0600 [facility] Last Admin: 12/24/24 05:49 Dose: 75 mcg Lidocaine/Diphenhydr/Alum/Mg/Simeth (Mag&Al/Sim/Diphenhyd/Lidocaine 10 Ml Oral.Susp) 10 ml PO Q6H PRN; Protocol PRN Reason: Painful Gums Last Admin: 08/26/24 13:38 Dose: 10 ml Memantine (Memantine Hcl 5 Mg Tablet) 5 mg PO BID [facility] Last Admin: 12/24/24 09:12 Dose: 5 mg Olanzapine (Olanzapine Odt 10 Mg Tab.Rapdis) 5 mg TRANSLINGU Q6H PRN PRN Reason: Agitation Last Admin: 11/01/24 20:50 Dose: 5 mg Polyethylene Glycol (Polyethylene Glycol 3350 17 Gm Powd.Pack) 17 gm PO DAILY PRN PRN Reason: constipation Senna/Docusate Sodium (Sennosides/Docusate Sodium Tablet) 1 tab PO BID [facility] Last Admin: 12/24/24 09:12 Dose: 1 tab Vitamin D (Cholecalciferol (Vitamin D3) 25 Mcg Tablet) 50 mcg PO DAILY [facility] Last Admin: 12/24/24 09:12 Dose: 50 mcg Allergies Allergies Allergy/AdvReac Type Severity Reaction Status Date / Time meperidine (From Demerol) AdvReac Intermediate Rash Verified 08/23/24 19:34 morphine AdvReac Intermediate Rash Verified 08/23/24 19:35 Sulfa (Sulfonamide AdvReac Intermediate Rash Verified 08/23/24 19:36 Antibiotics) Assessment & Plan Assessment & Plan (1) Schizoaffective disorder: Status: Acute Code(s): F25.9 - Schizoaffective disorder, unspecified Plan stable. continue current mgmt. awaiting placement. 12/10/24- no change CTP 12/11/24- patient flat but responsive- CTP 12/12: no change, continue current mgmt. 12/13: no change, denies any Sx or concerns. appears to be growing weaker due to spending so much time in bed, per OT; pt was encouraged by OT to be up and about more. 12/14: no change. continue current mgmt. 12/15 continue tx . 12/16 continue tx. 12/17: Continue current regimen and plans 12/18: Continue current regimen and plans 12/19: stable. continue current mgmt. 12/20: no change in presentation. continue current mgmt. 12/21: continues as per prior. awaiting placement. 12/22: continues as per prior. awaiting placement. 12/23 continue tx 12/24 continue tx. Reason for continued inpatient stay Substantial Risk for: inability to function Time Spent With Patient Time: Total time managing care of this patient today ____ minutes.
[2024-12-24 19:53] VITALS: BP 113/56; PULSE 78; RESP 16; TEMP 36.6; O2SAT 96
[2024-12-25 08:00] VITALS: BP 133/69; PULSE 91; RESP 16; TEMP 36.3; O2SAT 99
[2024-12-25] MEDS: ARIPiprazole 30 MG TABLET PO (08:06)
--- NOTE | 2024-12-25 16:42 | P.PNPSI_ITS ---
Subjective Subjective Date of Service: 12/25/24 Reason For Visit: bipolar 1 disorder current or most recent epi Interim History: no change in presentation. per staff, slept 7 hours, no notable events or behaviors. She denies SI/HI. no psychosis or delusions. does not engage much with peers or staff. Review of Systems Review of Systems Unremarkable Yes all other systems are reviewed and are negative Mental Status Exam Mental Status Exam Narrative: Appearance: adequately dressed and groomed Psychomotor: some retardation Speech: mostly clear, less latency, minimally spontaneous TP: [place] TC: no questions or complaints Mood: fine Affect: Flat SI: none expressed HI: none expressed VH/AH: none evidenced Delusions: no overt delusional content noted or reported Insight/judgment: impaired . Diagnostics Vital Signs (24Hr): Vital Signs - 24 hr 12/24/24 19:53 12/25/24 08:00 Temperature 97.9 F 97.3 F Pulse Rate 78 91 Respiratory Rate 16 16 Blood Pressure 113/56 L 133/69 Pulse Oximetry 96 99 Oxygen Delivery Method Room Air Room Air BMI result Body Mass Index 23.1 Labs 11/15/24 11:02 11/15/24 11:02 Imaging Radiology Impressions: ITS Impressions Head CT 08/25/24 11:33 IMPRESSION: No acute intracranial abnormality. Electronically signed by: Cj Colunga MD 08/25/2024 12:12 PM EST RP KUB X-Ray 10/28/24 09:50 IMPRESSION: Abundant stool without intestinal obstruction pattern. Electronically signed by: Audie Uribe MD 10/28/2024 10:02 AM EDT RP Medications Medications Current Medications Acetaminophen (Acetaminophen 325 Mg Tablet) 325 mg PO Q6H PRN PRN Reason: Pain, Mild (Pain Scale 1-3) Aripiprazole (Aripiprazole 30 Mg Tablet) 30 mg PO DAILY [facility] Last Admin: 12/25/24 08:06 Dose: 30 mg Benzocaine (Throat Lozenge, Medicated Lozenge) 1 lozenge MUCOUS MEM Q1H PRN PRN Reason: Sore Throat Last Admin: 09/01/24 06:09 Dose: 1 lozenge Guaifenesin/Dextromethorphan (Guaifenesin Dm 200/20/10 Ml 10 Ml Syrup) 10 ml PO Q4H PRN PRN Reason: Cough Last Admin: 08/30/24 05:47 Dose: 10 ml Levothyroxine Sodium (Levothyroxine Sodium 75 Mcg Tablet) 75 mcg PO DAILY@0600 [facility] Last Admin: 12/25/24 05:48 Dose: 75 mcg Lidocaine/Diphenhydr/Alum/Mg/Simeth (Mag&Al/Sim/Diphenhyd/Lidocaine 10 Ml Oral.Susp) 10 ml PO Q6H PRN; Protocol PRN Reason: Painful Gums Last Admin: 08/26/24 13:38 Dose: 10 ml Memantine (Memantine Hcl 5 Mg Tablet) 5 mg PO BID [facility] Last Admin: 12/25/24 08:06 Dose: 5 mg Olanzapine (Olanzapine Odt 10 Mg Tab.Rapdis) 5 mg TRANSLINGU Q6H PRN PRN Reason: Agitation Last Admin: 11/01/24 20:50 Dose: 5 mg Polyethylene Glycol (Polyethylene Glycol 3350 17 Gm Powd.Pack) 17 gm PO DAILY PRN PRN Reason: constipation Senna/Docusate Sodium (Sennosides/Docusate Sodium Tablet) 1 tab PO BID [facility] Last Admin: 12/25/24 08:06 Dose: 1 tab Vitamin D (Cholecalciferol (Vitamin D3) 25 Mcg Tablet) 50 mcg PO DAILY [facility] Last Admin: 12/25/24 08:06 Dose: 50 mcg Allergies Allergies Allergy/AdvReac Type Severity Reaction Status Date / Time meperidine (From Demerol) AdvReac Intermediate Rash Verified 08/23/24 19:34 morphine AdvReac Intermediate Rash Verified 08/23/24 19:35 Sulfa (Sulfonamide AdvReac Intermediate Rash Verified 08/23/24 19:36 Antibiotics) Assessment & Plan Assessment & Plan (1) Schizoaffective disorder: Status: Acute Code(s): F25.9 - Schizoaffective disorder, unspecified Plan stable. continue current mgmt. awaiting placement. 12/10/24- no change CTP 12/11/24- patient flat but responsive- CTP 12/12: no change, continue current mgmt. 12/13: no change, denies any Sx or concerns. appears to be growing weaker due to spending so much time in bed, per OT; pt was encouraged by OT to be up and about more. 6/18: no change. continue current mgmt. 12/15 continue tx . 12/16 continue tx. 12/17: Continue current regimen and plans 12/18: Continue current regimen and plans 12/19: stable. continue current mgmt. 12/20: no change in presentation. continue current mgmt. 12/21: continues as per prior. awaiting placement. 12/22: continues as per prior. awaiting placement. 12/23 continue tx 12/24 continue tx. 12/25 ordered urologist consult for incontinence Reason for continued inpatient stay Substantial Risk for: inability to function Time Spent With Patient Time: Total time managing care of this patient today ____ minutes.
[2024-12-25 19:53] VITALS: BP 109/57; PULSE 84; RESP 17; TEMP 36.6; O2SAT 96
[2024-12-25] MEDS: OLANZapine ODT 10 MG TAB.RAPDIS 5 MG TRANSLINGU (20:08)
[2024-12-26 08:00] VITALS: BP 113/58; PULSE 93; RESP 16; TEMP 36.7; O2SAT 98
[2024-12-26] MEDS: ARIPiprazole 30 MG TABLET PO (08:39)
--- NOTE | 2024-12-26 11:12 | HO.PSYCHPN ---
Subjective Subjective Date of Service: 12/26/24 Reason For Visit: bipolar 1 disorder current or most recent epi Subjective Notes: Conditional Voluntary Healthcare Proxy: Yes Interim History: no change in presentation. per staff, slept 7 hours, no notable events or behaviors. She denies SI/HI. no psychosis or delusions. does not engage much with peers or staff. Review of Systems Review of Systems Unremarkable Yes all other systems are reviewed and are negative Mental Status Exam Mental Status Exam Narrative: Appearance: adequately dressed and groomed Psychomotor: some retardation Speech: mostly clear, less latency, minimally spontaneous TP: [place] TC: no questions or complaints Mood: fine Affect: Flat SI: none expressed HI: none expressed VH/AH: none evidenced Delusions: no overt delusional content noted or reported Insight/judgment: impaired . Diagnostics Vital Signs (24Hr): Vital Signs - 24 hr 12/25/24 19:53 12/26/24 08:00 Temperature 97.8 F 98.1 F Pulse Rate 84 93 Respiratory Rate 17 16 Blood Pressure 109/57 L 113/58 L Pulse Oximetry 96 98 Oxygen Delivery Method Room Air Room Air BMI result Body Mass Index 23.1 Labs 11/15/24 11:02 11/15/24 11:02 Imaging Radiology Impressions: ITS Impressions Head CT 08/25/24 11:33 IMPRESSION: No acute intracranial abnormality. Electronically signed by: Cj Colunga MD 08/25/2024 12:12 PM EST RP KUB X-Ray 10/28/24 09:50 IMPRESSION: Abundant stool without intestinal obstruction pattern. Electronically signed by: Audie Uribe MD 10/28/2024 10:02 AM EDT RP Medications Medications Current Medications Acetaminophen (Acetaminophen 325 Mg Tablet) 325 mg PO Q6H PRN PRN Reason: Pain, Mild (Pain Scale 1-3) Aripiprazole (Aripiprazole 30 Mg Tablet) 30 mg PO DAILY [facility] Last Admin: 12/26/24 08:39 Dose: 30 mg Benzocaine (Throat Lozenge, Medicated Lozenge) 1 lozenge MUCOUS MEM Q1H PRN PRN Reason: Sore Throat Last Admin: 09/01/24 06:09 Dose: 1 lozenge Guaifenesin/Dextromethorphan (Guaifenesin Dm 200/20/10 Ml 10 Ml Syrup) 10 ml PO Q4H PRN PRN Reason: Cough Last Admin: 08/30/24 05:47 Dose: 10 ml Levothyroxine Sodium (Levothyroxine Sodium 75 Mcg Tablet) 75 mcg PO DAILY@0600 [facility] Last Admin: 12/26/24 05:22 Dose: 75 mcg Lidocaine/Diphenhydr/Alum/Mg/Simeth (Mag&Al/Sim/Diphenhyd/Lidocaine 10 Ml Oral.Susp) 10 ml PO Q6H PRN; Protocol PRN Reason: Painful Gums Last Admin: 08/26/24 13:38 Dose: 10 ml Memantine (Memantine Hcl 5 Mg Tablet) 5 mg PO BID [facility] Last Admin: 12/26/24 08:39 Dose: 5 mg Olanzapine (Olanzapine Odt 10 Mg Tab.Rapdis) 5 mg TRANSLINGU Q6H PRN PRN Reason: Agitation Last Admin: 12/25/24 20:08 Dose: 5 mg Polyethylene Glycol (Polyethylene Glycol 3350 17 Gm Powd.Pack) 17 gm PO DAILY PRN PRN Reason: constipation Senna/Docusate Sodium (Sennosides/Docusate Sodium Tablet) 1 tab PO BID [facility] Last Admin: 12/26/24 08:40 Dose: 1 tab Vitamin D (Cholecalciferol (Vitamin D3) 25 Mcg Tablet) 50 mcg PO DAILY [facility] Last Admin: 12/26/24 08:39 Dose: 50 mcg Allergies Allergies Allergy/AdvReac Type Severity Reaction Status Date / Time meperidine (From Demerol) AdvReac Intermediate Rash Verified 08/23/24 19:34 morphine AdvReac Intermediate Rash Verified 08/23/24 19:35 Sulfa (Sulfonamide AdvReac Intermediate Rash Verified 08/23/24 19:36 Antibiotics) Assessment & Plan Assessment & Plan (1) Schizoaffective disorder: Status: Acute Code(s): F25.9 - Schizoaffective disorder, unspecified Plan stable. continue current mgmt. awaiting placement. 12/10/24- no change CTP 12/11/24- patient flat but responsive- CTP 12/12: no change, continue current mgmt. 12/13: no change, denies any Sx or concerns. appears to be growing weaker due to spending so much time in bed, per OT; pt was encouraged by OT to be up and about more. 12/14: no change. continue current mgmt. 12/15 continue tx . 12/16 continue tx. 12/17: Continue current regimen and plans 12/18: Continue current regimen and plans 12/19: stable. continue current mgmt. 12/20: no change in presentation. continue current mgmt. 12/21: continues as per prior. awaiting placement. 12/22: continues as per prior. awaiting placement. 12/23 continue tx 12/24 continue tx. 12/25 ordered urologist consult for incontinence 12/26 continue tx. Reason for continued inpatient stay Substantial Risk for: inability to function Time Spent With Patient Time: Total time managing care of this patient today ____ minutes.
[2024-12-26 20:00] VITALS: BP 105/60; PULSE 81; RESP 16; TEMP 36; O2SAT 97
[2024-12-27 09:22] VITALS: BP 121/65; PULSE 85; RESP 19; TEMP 36.9; O2SAT 90
[2024-12-27] MEDS: ARIPiprazole 30 MG TABLET PO (09:27)
--- NOTE | 2024-12-27 09:50 | P.PNPSI_ITS ---
Subjective Subjective Reason For Visit: bipolar 1 disorder current or most recent epi Diagnostics Vital Signs (24Hr): Vital Signs - 24 hr 12/26/24 20:00 12/27/24 09:22 Temperature 96.8 F 98.4 F Pulse Rate 81 85 Respiratory Rate 16 19 Blood Pressure 105/60 121/65 Pulse Oximetry 97 90 L Oxygen Delivery Method Room Air Room Air BMI result Body Mass Index 23.1 Labs 11/15/24 11:02 11/15/24 11:02 Imaging Radiology Impressions: ITS Impressions Head CT 08/25/24 11:33 IMPRESSION: No acute intracranial abnormality. Electronically signed by: Cj Colunga MD 08/25/2024 12:12 PM EST RP KUB X-Ray 10/28/24 09:50 IMPRESSION: Abundant stool without intestinal obstruction pattern. Electronically signed by: Audie Uribe MD 10/28/2024 10:02 AM EDT RP Medications Medications Current Medications Acetaminophen (Acetaminophen 325 Mg Tablet) 325 mg PO Q6H PRN PRN Reason: Pain, Mild (Pain Scale 1-3) Aripiprazole (Aripiprazole 30 Mg Tablet) 30 mg PO DAILY [facility] BEDS AT [facility] Last Admin: 12/27/24 09:27 Dose: 30 mg Benzocaine (Throat Lozenge, Medicated Lozenge) 1 lozenge MUCOUS MEM Q1H PRN PRN Reason: Sore Throat Last Admin: 09/01/24 06:09 Dose: 1 lozenge Guaifenesin/Dextromethorphan (Guaifenesin Dm 200/20/10 Ml 10 Ml Syrup) 10 ml PO Q4H PRN PRN Reason: Cough Last Admin: 08/30/24 05:47 Dose: 10 ml Levothyroxine Sodium (Levothyroxine Sodium 75 Mcg Tablet) 75 mcg PO DAILY@0600 [facility] 234 BEDS AT [facility] Last Admin: 12/27/24 06:15 Dose: 75 mcg Lidocaine/Diphenhydr/Alum/Mg/Simeth (Mag&Al/Sim/Diphenhyd/Lidocaine 10 Ml Oral.Susp) 10 ml PO Q6H PRN; Protocol PRN Reason: Painful Gums Last Admin: 08/26/24 13:38 Dose: 10 ml Memantine (Memantine Hcl 5 Mg Tablet) 5 mg PO BID [facility] 234 BEDS AT [facility] Last Admin: 12/27/24 09:27 Dose: 5 mg Olanzapine (Olanzapine Odt 10 Mg Tab.Rapdis) 5 mg TRANSLINGU Q6H PRN PRN Reason: Agitation Last Admin: 12/25/24 20:08 Dose: 5 mg Polyethylene Glycol (Polyethylene Glycol 3350 17 Gm Powd.Pack) 17 gm PO DAILY PRN PRN Reason: constipation Senna/Docusate Sodium (Sennosides/Docusate Sodium Tablet) 1 tab PO BID [facility] 234 BEDS AT [facility] Last Admin: 12/27/24 09:28 Dose: 1 tab Vitamin D (Cholecalciferol (Vitamin D3) 25 Mcg Tablet) 50 mcg PO DAILY [facility] 234 BEDS AT [facility] Last Admin: 12/27/24 09:25 Dose: 50 mcg Allergies Allergies Allergy/AdvReac Type Severity Reaction Status Date / Time meperidine (From Demerol) AdvReac Intermediate Rash Verified 08/23/24 19:34 morphine AdvReac Intermediate Rash Verified 08/23/24 19:35 Sulfa (Sulfonamide AdvReac Intermediate Rash Verified 08/23/24 19:36 Antibiotics) Assessment & Plan Assessment & Plan (1) Schizoaffective disorder: Status: Acute Code(s): F25.9 - Schizoaffective disorder, unspecified Plan stable. continue current mgmt. awaiting placement. 12/10/24- no change CTP 12/11/24- patient flat but responsive- CTP 12/12: no change, continue current mgmt. 12/13: no change, denies any Sx or concerns. appears to be growing weaker due to spending so much time in bed, per OT; pt was encouraged by OT to be up and about more. 12/14: no change. continue current mgmt. 12/15 continue tx . 12/16 continue tx. 12/17: Continue current regimen and plans 12/18: Continue current regimen and plans 12/19: stable. continue current mgmt. 12/20: no change in presentation. continue current mgmt. 12/21: continues as per prior. awaiting placement. 12/22: continues as per prior. awaiting placement. 12/23 continue tx 12/24 continue tx. 12/25 ordered urologist consult for incontinence Time Spent With Patient Time: Total time managing care of this patient today ____ minutes.
--- NOTE | 2024-12-27 18:56 | P.PNPSI_ITS ---
Subjective Subjective Date of Service: 12/27/24 Reason For Visit: bipolar 1 disorder current or most recent epi Interim History: no change in presentation. per staff, slept 7 hours, no notable events or behaviors. She denies SI/HI. no psychosis or delusions. does not engage much with peers or staff. Review of Systems Review of Systems Unremarkable Yes all other systems are reviewed and are negative Mental Status Exam Mental Status Exam Narrative: Appearance: adequately dressed and groomed Psychomotor: some retardation Speech: mostly clear, less latency, minimally spontaneous TP: [place] TC: no questions or complaints Mood: fine Affect: Flat SI: none expressed HI: none expressed VH/AH: none evidenced Delusions: no overt delusional content noted or reported Insight/judgment: impaired . Diagnostics Vital Signs (24Hr): Vital Signs - 24 hr 12/26/24 20:00 12/27/24 09:22 Temperature 96.8 F 98.4 F Pulse Rate 81 85 Respiratory Rate 16 19 Blood Pressure 105/60 121/65 Pulse Oximetry 97 90 L Oxygen Delivery Method Room Air Room Air BMI result Body Mass Index 23.1 Labs 11/15/24 11:02 11/15/24 11:02 Imaging Radiology Impressions: ITS Impressions Head CT 08/25/24 11:33 IMPRESSION: No acute intracranial abnormality. Electronically signed by: Cj Colunga MD 08/25/2024 12:12 PM EST RP KUB X-Ray 10/28/24 09:50 IMPRESSION: Abundant stool without intestinal obstruction pattern. Electronically signed by: Audie Uribe MD 10/28/2024 10:02 AM EDT RP Medications Medications Current Medications Acetaminophen (Acetaminophen 325 Mg Tablet) 325 mg PO Q6H PRN PRN Reason: Pain, Mild (Pain Scale 1-3) Aripiprazole (Aripiprazole 30 Mg Tablet) 30 mg PO DAILY [facility] Last Admin: 12/27/24 09:27 Dose: 30 mg Benzocaine (Throat Lozenge, Medicated Lozenge) 1 lozenge MUCOUS MEM Q1H PRN PRN Reason: Sore Throat Last Admin: 09/01/24 06:09 Dose: 1 lozenge Guaifenesin/Dextromethorphan (Guaifenesin Dm 200/20/10 Ml 10 Ml Syrup) 10 ml PO Q4H PRN PRN Reason: Cough Last Admin: 08/30/24 05:47 Dose: 10 ml Levothyroxine Sodium (Levothyroxine Sodium 75 Mcg Tablet) 75 mcg PO DAILY@0600 [facility] Last Admin: 12/27/24 06:15 Dose: 75 mcg Lidocaine/Diphenhydr/Alum/Mg/Simeth (Mag&Al/Sim/Diphenhyd/Lidocaine 10 Ml Oral.Susp) 10 ml PO Q6H PRN; Protocol PRN Reason: Painful Gums Last Admin: 08/26/24 13:38 Dose: 10 ml Memantine (Memantine Hcl 5 Mg Tablet) 5 mg PO BID [facility] Last Admin: 12/27/24 09:27 Dose: 5 mg Olanzapine (Olanzapine Odt 10 Mg Tab.Rapdis) 5 mg TRANSLINGU Q6H PRN PRN Reason: Agitation Last Admin: 12/25/24 20:08 Dose: 5 mg Polyethylene Glycol (Polyethylene Glycol 3350 17 Gm Powd.Pack) 17 gm PO DAILY PRN PRN Reason: constipation Senna/Docusate Sodium (Sennosides/Docusate Sodium Tablet) 1 tab PO BID [facility] Last Admin: 12/27/24 09:28 Dose: 1 tab Vitamin D (Cholecalciferol (Vitamin D3) 25 Mcg Tablet) 50 mcg PO DAILY [facility] Last Admin: 12/27/24 09:25 Dose: 50 mcg Allergies Allergies Allergy/AdvReac Type Severity Reaction Status Date / Time meperidine (From Demerol) AdvReac Intermediate Rash Verified 08/23/24 19:34 morphine AdvReac Intermediate Rash Verified 08/23/24 19:35 Sulfa (Sulfonamide AdvReac Intermediate Rash Verified 08/23/24 19:36 Antibiotics) Assessment & Plan Assessment & Plan (1) Schizoaffective disorder: Status: Acute Code(s): F25.9 - Schizoaffective disorder, unspecified Plan stable. continue current mgmt. awaiting placement. 12/10/24- no change CTP 12/11/24- patient flat but responsive- CTP 12/12: no change, continue current mgmt. 12/13: no change, denies any Sx or concerns. appears to be growing weaker due to spending so much time in bed, per OT; pt was encouraged by OT to be up and about more. 6/18: no change. continue current mgmt. 12/15 continue tx . 12/16 continue tx. 12/17: Continue current regimen and plans 12/18: Continue current regimen and plans 12/19: stable. continue current mgmt. 12/20: no change in presentation. continue current mgmt. 12/21: continues as per prior. awaiting placement. 12/22: continues as per prior. awaiting placement. 12/23 continue tx 12/24 continue tx. 12/25 ordered urologist consult for incontinence 12/27 continue tx. awaiting placement. Reason for continued inpatient stay Substantial Risk for: inability to function Time Spent With Patient Time: Total time managing care of this patient today ____ minutes.
[2024-12-27 20:00] VITALS: BP 122/64; PULSE 102; RESP 17; TEMP 36.7; O2SAT 92
[2024-12-28 09:07] VITALS: BP 160/67; PULSE 110; RESP 18; TEMP 36.5; O2SAT 95
[2024-12-28] MEDS: ARIPiprazole 30 MG TABLET PO (09:11)
--- NOTE | 2024-12-28 17:49 | P.PNPSI_ITS ---
Subjective Subjective Date of Service: 12/28/24 Reason For Visit: bipolar 1 disorder current or most recent epi Interim History: Medical record and nursing notes reviewed; case discussed during rounds with team, and met with patient for supportive therapy/psychoeducation, as well as medication management. Patient appeared to sleep for 7 hours reports good appetite. However patient reports she could not sleep well last night due to the noise in the [place]. She does not want to any groups. She as why you come talking to me? She reports a little bit depression but deny anxiety. In the middle of conversation she states I feel like I do not want to talk to nobody . Reports last bowel movement was yesterday. There is incontinence at the moment when I was with patient in her room, as she was was clean. She appears to be cleaned with no ADLs issue. She ate in common area, then went back to her room. She does not want to groups encouraged her to be hour and more visible and attended groups as tolerated. Denies safety concern. Medication Compliance: Yes Side effects from medications: No Attending Groups: No Review of Systems Acute medical concerns: No Medical Review of Systems: unchanged Review of Systems Review of Systems Constitutional: Denies fatigue and Denies fever(s) Cardiovascular: Denies chest pain and Denies dyspnea Respiratory: Denies dyspnea Gastrointestinal: Denies abdominal pain Psychiatric: denies suicidal ideation Endocrine: Denies fatigue. Per nursing she has incontinence issue. Urology consult placed by previous attending: Pending results Mental Status Exam Mental Status Exam Narrative: Appearance: adequately dressed and groomed Psychomotor: some retardation, isolated in room with steady gait when ambulates Speech: mostly clear, slow to respond. TP: [place] TC: WNL somewhat guarded Mood: a little bit of depression Affect: Flat SI: Denies HI: Denies VH/AH: Denies Delusions: no overt delusional content noted or reported Insight/judgment: impaired/poor Diagnostics Vital Signs (24Hr): Vital Signs - 24 hr 12/27/24 20:00 12/28/24 09:07 Temperature 98.1 F 97.7 F Pulse Rate 102 H 110 H Respiratory Rate 17 18 Blood Pressure 122/64 160/67 H Pulse Oximetry 92 95 Oxygen Delivery Method Room Air Room Air BMI result Body Mass Index 23.1 Labs 11/15/24 11:02 11/15/24 11:02 Imaging Radiology Impressions: ITS Impressions Head CT 08/25/24 11:33 IMPRESSION: No acute intracranial abnormality. Electronically signed by: Cj Colunga MD 08/25/2024 12:12 PM EST RP KUB X-Ray 10/28/24 09:50 IMPRESSION: Abundant stool without intestinal obstruction pattern. Electronically signed by: Audie Uribe MD 10/28/2024 10:02 AM EDT RP Medications Medications Current Medications Acetaminophen (Acetaminophen 325 Mg Tablet) 325 mg PO Q6H PRN PRN Reason: Pain, Mild (Pain Scale 1-3) Aripiprazole (Aripiprazole 30 Mg Tablet) 30 mg PO DAILY [facility] Last Admin: 12/28/24 09:11 Dose: 30 mg Benzocaine (Throat Lozenge, Medicated Lozenge) 1 lozenge MUCOUS MEM Q1H PRN PRN Reason: Sore Throat Last Admin: 09/01/24 06:09 Dose: 1 lozenge Guaifenesin/Dextromethorphan (Guaifenesin Dm 200/20/10 Ml 10 Ml Syrup) 10 ml PO Q4H PRN PRN Reason: Cough Last Admin: 08/30/24 05:47 Dose: 10 ml Levothyroxine Sodium (Levothyroxine Sodium 75 Mcg Tablet) 75 mcg PO DAILY@0600 [facility] Last Admin: 12/28/24 05:58 Dose: 75 mcg Lidocaine/Diphenhydr/Alum/Mg/Simeth (Mag&Al/Sim/Diphenhyd/Lidocaine 10 Ml Oral.Susp) 10 ml PO Q6H PRN; Protocol PRN Reason: Painful Gums Last Admin: 08/26/24 13:38 Dose: 10 ml Memantine (Memantine Hcl 5 Mg Tablet) 5 mg PO BID [facility] Last Admin: 12/28/24 09:11 Dose: 5 mg Olanzapine (Olanzapine Odt 10 Mg Tab.Rapdis) 5 mg TRANSLINGU Q6H PRN PRN Reason: Agitation Last Admin: 12/25/24 20:08 Dose: 5 mg Polyethylene Glycol (Polyethylene Glycol 3350 17 Gm Powd.Pack) 17 gm PO DAILY PRN PRN Reason: constipation Senna/Docusate Sodium (Sennosides/Docusate Sodium Tablet) 1 tab PO BID [facility] Last Admin: 12/28/24 09:11 Dose: 1 tab Vitamin D (Cholecalciferol (Vitamin D3) 25 Mcg Tablet) 50 mcg PO DAILY [facility] Last Admin: 12/28/24 09:10 Dose: 50 mcg Allergies Allergies Allergy/AdvReac Type Severity Reaction Status Date / Time meperidine (From Demerol) AdvReac Intermediate Rash Verified 08/23/24 19:34 morphine AdvReac Intermediate Rash Verified 08/23/24 19:35 Sulfa (Sulfonamide AdvReac Intermediate Rash Verified 08/23/24 19:36 Antibiotics) Assessment & Plan Assessment & Plan (1) Schizoaffective disorder: Status: Acute Code(s): F25.9 - Schizoaffective disorder, unspecified Plan Plan stable. continue current mgmt. awaiting placement. 12/10/24- no change CTP 12/11/24- patient flat but responsive- CTP 12/12: no change, continue current mgmt. 12/13: no change, denies any Sx or concerns. appears to be growing weaker due to spending so much time in bed, per OT; pt was encouraged by OT to be up and about more. 12/14: no change. continue current mgmt. 12/15 continue tx . 12/16 continue tx. 12/17: Continue current regimen and plans 12/18: Continue current regimen and plans 12/19: stable. continue current mgmt. 12/20: no change in presentation. continue current mgmt. 12/21: continues as per prior. awaiting placement. 12/22: continues as per prior. awaiting placement. 12/23 continue tx 12/24 continue tx. 12/25 ordered urologist consult for incontinence 12/27 continue tx. awaiting placement. 12/28/24: Put treatment team, patient is awaiting for placement, isolated in room, out for meals but not attended to groups today. Flat affect, mild depressed, no side effects. Continue to encourage groups and out more on the unit for activities. Patient has not seen by urologist for incontinence. Patient educated on: therapeutic strategies Informed Consent: further education needed Reason for continued inpatient stay Substantial Risk for: med/psych decompensation Time Spent With Patient Time: Total time managing care of this patient today ____ minutes.
[2024-12-28 20:00] VITALS: BP 112/69; PULSE 86; RESP 16; TEMP 36.6; O2SAT 97
[2024-12-29 08:00] VITALS: BP 119/56; PULSE 96; RESP 16; TEMP 2.6; TEMP 36.6; O2SAT 97
[2024-12-29] MEDS: ARIPiprazole 30 MG TABLET PO (09:30)
[2024-12-29 09:50] VITALS: BMI 23.1
--- NOTE | 2024-12-29 19:02 | HO.PSYCHPN ---
Subjective Subjective Date of Service: 12/29/24 Reason For Visit: bipolar 1 disorder current or most recent epi Subjective Notes: Conditional Voluntary Healthcare Proxy: Yes Interim History: Pt slept through the night. taking medications as prescribed. No SI/HI. No overt psychosis or delusions. Review of Systems Review of Systems Constitutional: Denies fatigue and Denies fever(s) Cardiovascular: Denies chest pain and Denies dyspnea Respiratory: Denies dyspnea Gastrointestinal: Denies abdominal pain Psychiatric: denies suicidal ideation Endocrine: Denies fatigue. Per nursing she has incontinence issue. Urology consult placed by previous attending: Pending results Yes all other systems are reviewed and are negative Mental Status Exam Mental Status Exam Narrative: Appearance: adequately dressed and groomed Psychomotor: some retardation, isolated in room with steady gait when ambulates Speech: mostly clear, slow to respond. TP: [place] TC: WNL somewhat guarded Mood: a little bit of depression Affect: Flat SI: Denies HI: Denies VH/AH: Denies Delusions: no overt delusional content noted or reported Insight/judgment: impaired/poor Patient Appearance: Well Grooomed Patient Orientation: Person and Situation Level of Consciousness: Awake and Alert Patient Behavior: Passive and Isolative Mood Description: Constricted Affect Description: Flat Patient Cognition Impaired: No Ability to Follow Directions: Fair Speech Pattern: Clear and Impoverished Memory Description: Intact Diagnostics Vital Signs (24Hr): Vital Signs - 24 hr 12/28/24 20:00 12/29/24 08:00 Temperature 97.9 F 36.6 F L Pulse Rate 86 96 Respiratory Rate 16 16 Blood Pressure 112/69 119/56 L Pulse Oximetry 97 97 Oxygen Delivery Method Room Air Room Air BMI result Body Mass Index 23.1 Labs 11/15/24 11:02 11/15/24 11:02 Imaging Radiology Impressions: ITS Impressions Head CT 08/25/24 11:33 IMPRESSION: No acute intracranial abnormality. Electronically signed by: Cj Colunga MD 08/25/2024 12:12 PM EST RP KUB X-Ray 10/28/24 09:50 IMPRESSION: Abundant stool without intestinal obstruction pattern. Electronically signed by: Audie Uribe MD 10/28/2024 10:02 AM EDT RP Medications Medications Current Medications Acetaminophen (Acetaminophen 325 Mg Tablet) 325 mg PO Q6H PRN PRN Reason: Pain, Mild (Pain Scale 1-3) Aripiprazole (Aripiprazole 30 Mg Tablet) 30 mg PO DAILY [facility] Last Admin: 12/29/24 09:30 Dose: 30 mg Benzocaine (Throat Lozenge, Medicated Lozenge) 1 lozenge MUCOUS MEM Q1H PRN PRN Reason: Sore Throat Last Admin: 09/01/24 06:09 Dose: 1 lozenge Guaifenesin/Dextromethorphan (Guaifenesin Dm 200/20/10 Ml 10 Ml Syrup) 10 ml PO Q4H PRN PRN Reason: Cough Last Admin: 08/30/24 05:47 Dose: 10 ml Levothyroxine Sodium (Levothyroxine Sodium 75 Mcg Tablet) 75 mcg PO DAILY@0600 [facility] Last Admin: 12/29/24 05:49 Dose: 75 mcg Lidocaine/Diphenhydr/Alum/Mg/Simeth (Mag&Al/Sim/Diphenhyd/Lidocaine 10 Ml Oral.Susp) 10 ml PO Q6H PRN; Protocol PRN Reason: Painful Gums Last Admin: 08/26/24 13:38 Dose: 10 ml Memantine (Memantine Hcl 5 Mg Tablet) 5 mg PO BID [facility] Last Admin: 12/29/24 09:31 Dose: 5 mg Olanzapine (Olanzapine Odt 10 Mg Tab.Rapdis) 5 mg TRANSLINGU Q6H PRN PRN Reason: Agitation Last Admin: 12/25/24 20:08 Dose: 5 mg Polyethylene Glycol (Polyethylene Glycol 3350 17 Gm Powd.Pack) 17 gm PO DAILY PRN PRN Reason: constipation Senna/Docusate Sodium (Sennosides/Docusate Sodium Tablet) 1 tab PO BID [facility] Last Admin: 12/29/24 09:31 Dose: 1 tab Vitamin D (Cholecalciferol (Vitamin D3) 25 Mcg Tablet) 50 mcg PO DAILY [facility] Last Admin: 12/29/24 09:30 Dose: 50 mcg Allergies Allergies Allergy/AdvReac Type Severity Reaction Status Date / Time meperidine (From Demerol) AdvReac Intermediate Rash Verified 08/23/24 19:34 morphine AdvReac Intermediate Rash Verified 08/23/24 19:35 Sulfa (Sulfonamide AdvReac Intermediate Rash Verified 08/23/24 19:36 Antibiotics) Assessment & Plan Assessment & Plan (1) Schizoaffective disorder: Status: Acute Code(s): F25.9 - Schizoaffective disorder, unspecified Plan Plan stable. continue current mgmt. awaiting placement. 12/10/24- no change CTP 12/11/24- patient flat but responsive- CTP 12/12: no change, continue current mgmt. 12/13: no change, denies any Sx or concerns. appears to be growing weaker due to spending so much time in bed, per OT; pt was encouraged by OT to be up and about more. 12/14: no change. continue current mgmt. 12/15 continue tx . 12/16 continue tx. 12/17: Continue current regimen and plans 12/18: Continue current regimen and plans 12/19: stable. continue current mgmt. 12/20: no change in presentation. continue current mgmt. 12/21: continues as per prior. awaiting placement. 12/22: continues as per prior. awaiting placement. 12/23 continue tx 12/24 continue tx. 12/25 ordered urologist consult for incontinence 12/27 continue tx. awaiting placement. 12/28/24: Put treatment team, patient is awaiting for placement, isolated in room, out for meals but not attended to groups today. Flat affect, mild depressed, no side effects. Continue to encourage groups and out more on the unit for activities. Patient has not seen by urologist for incontinence. 12/29 continue tx. Reason for continued inpatient stay Substantial Risk for: inability to function Time Spent With Patient Time: Total time managing care of this patient today ____ minutes.
[2024-12-29 20:00] VITALS: BP 105/62; PULSE 93; TEMP 36.9; O2SAT 96
[2024-12-30 08:00] VITALS: BP 125/64; PULSE 92; RESP 18; TEMP 36.1; O2SAT 95
--- NOTE | 2024-12-30 08:15 | P.PNPSI_ITS ---
Subjective Subjective Date of Service: 12/30/24 Reason For Visit: bipolar 1 disorder current or most recent epi Interim History: Met with patient. Discussed with nursing. Patient reports things are going well. Denied feeling depressed or anxious, which is an improvement as per nursing. However isolates at times to bed. Self-care also limited at times. Reports feeling safe. No medication concerns. Sleep and appetite good Medication Compliance: Yes Side effects from medications: No Attending Groups: Intermittent Review of Systems Acute medical concerns: No Review of Systems Review of Systems nothing acute Mental Status Exam Mental Status Exam Narrative: Appearance: adequately dressed and groomed Psychomotor: some retardation, isolated in room Speech: mostly clear, slow to respond. TP: [place] TC: WNL Mood: good today Affect: Flat SI: Denies HI: Denies VH/AH: Denies Delusions: no overt delusional content noted or reported Insight/judgment: impaired/poor Patient Appearance: Well Grooomed Patient Orientation: Person and Situation Level of Consciousness: Awake and Alert Patient Behavior: Passive and Isolative Mood Description: Constricted Affect Description: Flat Patient Cognition Impaired: No Ability to Follow Directions: Fair Speech Pattern: Clear and Impoverished Memory Description: Intact Diagnostics Vital Signs (24Hr): Vital Signs - 24 hr 12/29/24 20:00 Temperature 98.4 F Pulse Rate 93 Blood Pressure 105/62 Pulse Oximetry 96 Oxygen Delivery Method Room Air BMI result Body Mass Index 23.1 Labs 11/15/24 11:02 11/15/24 11:02 Imaging Radiology Impressions: ITS Impressions Head CT 08/25/24 11:33 IMPRESSION: No acute intracranial abnormality. Electronically signed by: Cj Colunga MD 08/25/2024 12:12 PM EST RP KUB X-Ray 10/28/24 09:50 IMPRESSION: Abundant stool without intestinal obstruction pattern. Electronically signed by: Audie Uribe MD 10/28/2024 10:02 AM EDT RP Medications Medications Current Medications Acetaminophen (Acetaminophen 325 Mg Tablet) 325 mg PO Q6H PRN PRN Reason: Pain, Mild (Pain Scale 1-3) Aripiprazole (Aripiprazole 30 Mg Tablet) 30 mg PO DAILY [facility] Last Admin: 12/29/24 09:30 Dose: 30 mg Benzocaine (Throat Lozenge, Medicated Lozenge) 1 lozenge MUCOUS MEM Q1H PRN PRN Reason: Sore Throat Last Admin: 09/01/24 06:09 Dose: 1 lozenge Guaifenesin/Dextromethorphan (Guaifenesin Dm 200/20/10 Ml 10 Ml Syrup) 10 ml PO Q4H PRN PRN Reason: Cough Last Admin: 08/30/24 05:47 Dose: 10 ml Levothyroxine Sodium (Levothyroxine Sodium 75 Mcg Tablet) 75 mcg PO DAILY@0600 [facility] Last Admin: 12/30/24 06:29 Dose: 75 mcg Lidocaine/Diphenhydr/Alum/Mg/Simeth (Mag&Al/Sim/Diphenhyd/Lidocaine 10 Ml Oral.Susp) 10 ml PO Q6H PRN; Protocol PRN Reason: Painful Gums Last Admin: 08/26/24 13:38 Dose: 10 ml Memantine (Memantine Hcl 5 Mg Tablet) 5 mg PO BID [facility] Last Admin: 12/29/24 20:36 Dose: 5 mg Olanzapine (Olanzapine Odt 10 Mg Tab.Rapdis) 5 mg TRANSLINGU Q6H PRN PRN Reason: Agitation Last Admin: 12/25/24 20:08 Dose: 5 mg Polyethylene Glycol (Polyethylene Glycol 3350 17 Gm Powd.Pack) 17 gm PO DAILY PRN PRN Reason: constipation Senna/Docusate Sodium (Sennosides/Docusate Sodium Tablet) 1 tab PO BID [facility] Last Admin: 12/29/24 20:38 Dose: Not Given Vitamin D (Cholecalciferol (Vitamin D3) 25 Mcg Tablet) 50 mcg PO DAILY [facility] Last Admin: 12/29/24 09:30 Dose: 50 mcg Allergies Allergies Allergy/AdvReac Type Severity Reaction Status Date / Time meperidine (From Demerol) AdvReac Intermediate Rash Verified 08/23/24 19:34 morphine AdvReac Intermediate Rash Verified 08/23/24 19:35 Sulfa (Sulfonamide AdvReac Intermediate Rash Verified 08/23/24 19:36 Antibiotics) Assessment & Plan Assessment & Plan (1) Schizoaffective disorder: Status: Acute Code(s): F25.9 - Schizoaffective disorder, unspecified Plan Plan stable. continue current mgmt. awaiting placement. 12/10/24- no change CTP 12/11/24- patient flat but responsive- CTP 12/12: no change, continue current mgmt. 12/13: no change, denies any Sx or concerns. appears to be growing weaker due to spending so much time in bed, per OT; pt was encouraged by OT to be up and about more. 12/14: no change. continue current mgmt. 12/15 continue tx . 12/16 continue tx. 12/17: Continue current regimen and plans 12/18: Continue current regimen and plans 12/19: stable. continue current mgmt. 12/20: no change in presentation. continue current mgmt. 12/21: continues as per prior. awaiting placement. 12/22: continues as per prior. awaiting placement. 12/23 continue tx 12/24 continue tx. 12/25 ordered urologist consult for incontinence 12/27 continue tx. awaiting placement. 12/28/24: Put treatment team, patient is awaiting for placement, isolated in room, out for meals but not attended to groups today. Flat affect, mild depressed, no side effects. Continue to encourage groups and out more on the unit for activities. Patient has not seen by urologist for incontinence. 12/30/2024: No changes Reason for continued inpatient stay Substantial Risk for: inability to function and rapid decompensation Time Spent With Patient Time: Total time managing care of this patient today ____ minutes.
[2024-12-30] MEDS: ARIPiprazole 30 MG TABLET PO (08:36)
[2024-12-30 20:00] VITALS: BP 108/58; PULSE 81; RESP 16; TEMP 36.1; O2SAT 96
--- NOTE | 2024-12-31 07:27 | P.PNPSI_ITS ---
Subjective Subjective Date of Service: 12/31/24 Reason For Visit: bipolar 1 disorder current or most recent epi Interim History: Met with patient. Discussed with nursing. Patient reports things are going OK. Denied feeling depressed or anxious I'm good . Isolates at times to bed. Self-care also limited. Reports feeling safe. No medication concerns. Sleep and appetite good Medication Compliance: Yes Side effects from medications: No Attending Groups: No Review of Systems Acute medical concerns: No Review of Systems Review of Systems nothing acute Mental Status Exam Mental Status Exam Narrative: Appearance: adequately dressed, poor self care, in bed Psychomotor: some retardation, isolated in room Speech: mostly clear, slow to respond. TP: [place] TC: WNL Mood: good Affect: Flat SI: Denies HI: Denies VH/AH: Denies Delusions: no overt delusional content noted or reported Insight/judgment: impaired/poor Diagnostics Vital Signs (24Hr): Vital Signs - 24 hr 12/30/24 08:00 12/30/24 20:00 Temperature 97.0 F 97.0 F Pulse Rate 92 81 Respiratory Rate 18 16 Blood Pressure 125/64 108/58 L Pulse Oximetry 95 96 Oxygen Delivery Method Room Air Room Air BMI result Body Mass Index 23.1 Labs 11/15/24 11:02 11/15/24 11:02 Imaging Radiology Impressions: ITS Impressions Head CT 08/25/24 11:33 IMPRESSION: No acute intracranial abnormality. Electronically signed by: Cj Colunga MD 08/25/2024 12:12 PM EST RP KUB X-Ray 10/28/24 09:50 IMPRESSION: Abundant stool without intestinal obstruction pattern. Electronically signed by: Audie Uribe MD 10/28/2024 10:02 AM EDT RP Medications Medications Current Medications Acetaminophen (Acetaminophen 325 Mg Tablet) 325 mg PO Q6H PRN PRN Reason: Pain, Mild (Pain Scale 1-3) Aripiprazole (Aripiprazole 30 Mg Tablet) 30 mg PO DAILY [facility] Last Admin: 12/30/24 08:36 Dose: 30 mg Benzocaine (Throat Lozenge, Medicated Lozenge) 1 lozenge MUCOUS MEM Q1H PRN PRN Reason: Sore Throat Last Admin: 09/01/24 06:09 Dose: 1 lozenge Guaifenesin/Dextromethorphan (Guaifenesin Dm 200/20/10 Ml 10 Ml Syrup) 10 ml PO Q4H PRN PRN Reason: Cough Last Admin: 08/30/24 05:47 Dose: 10 ml Levothyroxine Sodium (Levothyroxine Sodium 75 Mcg Tablet) 75 mcg PO DAILY@0600 [facility] Last Admin: 12/31/24 06:34 Dose: 75 mcg Lidocaine/Diphenhydr/Alum/Mg/Simeth (Mag&Al/Sim/Diphenhyd/Lidocaine 10 Ml Oral.Susp) 10 ml PO Q6H PRN; Protocol PRN Reason: Painful Gums Last Admin: 08/26/24 13:38 Dose: 10 ml Memantine (Memantine Hcl 5 Mg Tablet) 5 mg PO BID [facility] Last Admin: 12/30/24 21:31 Dose: 5 mg Olanzapine (Olanzapine Odt 10 Mg Tab.Rapdis) 5 mg TRANSLINGU Q6H PRN PRN Reason: Agitation Last Admin: 12/25/24 20:08 Dose: 5 mg Polyethylene Glycol (Polyethylene Glycol 3350 17 Gm Powd.Pack) 17 gm PO DAILY PRN PRN Reason: constipation Senna/Docusate Sodium (Sennosides/Docusate Sodium Tablet) 1 tab PO BID [facility] Last Admin: 12/30/24 21:31 Dose: 1 tab Vitamin D (Cholecalciferol (Vitamin D3) 25 Mcg Tablet) 50 mcg PO DAILY [facility] Last Admin: 12/30/24 08:36 Dose: 50 mcg Allergies Allergies Allergy/AdvReac Type Severity Reaction Status Date / Time meperidine (From Demerol) AdvReac Intermediate Rash Verified 08/23/24 19:34 morphine AdvReac Intermediate Rash Verified 08/23/24 19:35 Sulfa (Sulfonamide AdvReac Intermediate Rash Verified 08/23/24 19:36 Antibiotics) Assessment & Plan Assessment & Plan (1) Schizoaffective disorder: Status: Acute Code(s): F25.9 - Schizoaffective disorder, unspecified Plan Plan stable. continue current mgmt. awaiting placement. 12/10/24- no change CTP 12/11/24- patient flat but responsive- CTP 12/12: no change, continue current mgmt. 12/13: no change, denies any Sx or concerns. appears to be growing weaker due to spending so much time in bed, per OT; pt was encouraged by OT to be up and about more. 12/14: no change. continue current mgmt. 12/15 continue tx . 12/16 continue tx. 12/17: Continue current regimen and plans 12/18: Continue current regimen and plans 12/19: stable. continue current mgmt. 12/20: no change in presentation. continue current mgmt. 12/21: continues as per prior. awaiting placement. 12/22: continues as per prior. awaiting placement. 12/23 continue tx 12/24 continue tx. 12/25 ordered urologist consult for incontinence 12/27 continue tx. awaiting placement. 12/28/24: Put treatment team, patient is awaiting for placement, isolated in room, out for meals but not attended to groups today. Flat affect, mild depressed, no side effects. Continue to encourage groups and out more on the unit for activities. Patient has not seen by urologist for incontinence. 12/30/2024: No change 12/31: no changes Reason for continued inpatient stay Substantial Risk for: inability to function Time Spent With Patient Time: Total time managing care of this patient today ____ minutes.
[2024-12-31 08:00] VITALS: BP 140/63; PULSE 93; RESP 18; TEMP 36; O2SAT 97
[2024-12-31] MEDS: ARIPiprazole 30 MG TABLET PO (08:42)
[2024-12-31 20:00] VITALS: BP 130/62; PULSE 86; RESP 15; TEMP 36.4; O2SAT 96
[2025-01-01 08:00] VITALS: BP 112/65; PULSE 82; RESP 18; TEMP 36.9; O2SAT 96
[2025-01-01] MEDS: ARIPiprazole 30 MG TABLET PO (10:08)
--- NOTE | 2025-01-01 11:01 | HO.PSYCHPN ---
Subjective Subjective Date of Service: 01/01/25 Reason For Visit: bipolar 1 disorder current or most recent epi Interim History: Met with patient. Discussed with nursing. Overall denied feeling depressed or anxious I'm good . Isolates at times to bed- out for meals. Self-care also limited. Reports feeling safe. No medication concerns. Sleep and appetite good Medication Compliance: Yes Side effects from medications: No Attending Groups: No Review of Systems Acute medical concerns: No Review of Systems Review of Systems nothing acute Mental Status Exam Mental Status Exam Narrative: Appearance: adequately dressed, poor self care, in bed Psychomotor: some retardation, isolated in room Speech: mostly clear, slow to respond. TP: [place] TC: WNL Mood: fine Affect: Flat SI: Denies HI: Denies VH/AH: Denies Delusions: no overt delusional content noted or reported Insight/judgment: impaired/poor Diagnostics Vital Signs (24Hr): Vital Signs - 24 hr 12/31/24 20:00 01/01/25 08:00 Temperature 97.6 F 98.4 F Pulse Rate 86 82 Respiratory Rate 15 18 Blood Pressure 130/62 112/65 Pulse Oximetry 96 96 Oxygen Delivery Method Room Air Room Air BMI result Body Mass Index 23.1 Labs 11/15/24 11:02 11/15/24 11:02 Imaging Radiology Impressions: ITS Impressions Head CT 08/25/24 11:33 IMPRESSION: No acute intracranial abnormality. Electronically signed by: Cj Colunga MD 08/25/2024 12:12 PM EST RP KUB X-Ray 10/28/24 09:50 IMPRESSION: Abundant stool without intestinal obstruction pattern. Electronically signed by: Audie Uribe MD 10/28/2024 10:02 AM EDT RP Medications Medications Current Medications Acetaminophen (Acetaminophen 325 Mg Tablet) 325 mg PO Q6H PRN PRN Reason: Pain, Mild (Pain Scale 1-3) Aripiprazole (Aripiprazole 30 Mg Tablet) 30 mg PO DAILY [facility] Last Admin: 01/01/25 10:08 Dose: 30 mg Benzocaine (Throat Lozenge, Medicated Lozenge) 1 lozenge MUCOUS MEM Q1H PRN PRN Reason: Sore Throat Last Admin: 09/01/24 06:09 Dose: 1 lozenge Guaifenesin/Dextromethorphan (Guaifenesin Dm 200/20/10 Ml 10 Ml Syrup) 10 ml PO Q4H PRN PRN Reason: Cough Last Admin: 08/30/24 05:47 Dose: 10 ml Levothyroxine Sodium (Levothyroxine Sodium 75 Mcg Tablet) 75 mcg PO DAILY@0600 [facility] Last Admin: 01/01/25 06:38 Dose: 75 mcg Lidocaine/Diphenhydr/Alum/Mg/Simeth (Mag&Al/Sim/Diphenhyd/Lidocaine 10 Ml Oral.Susp) 10 ml PO Q6H PRN; Protocol PRN Reason: Painful Gums Last Admin: 08/26/24 13:38 Dose: 10 ml Memantine (Memantine Hcl 5 Mg Tablet) 5 mg PO BID [facility] Last Admin: 01/01/25 10:09 Dose: 5 mg Olanzapine (Olanzapine Odt 10 Mg Tab.Rapdis) 5 mg TRANSLINGU Q6H PRN PRN Reason: Agitation Last Admin: 12/25/24 20:08 Dose: 5 mg Polyethylene Glycol (Polyethylene Glycol 3350 17 Gm Powd.Pack) 17 gm PO DAILY PRN PRN Reason: constipation Senna/Docusate Sodium (Sennosides/Docusate Sodium Tablet) 1 tab PO BID [facility] Last Admin: 01/01/25 10:09 Dose: Not Given Vitamin D (Cholecalciferol (Vitamin D3) 25 Mcg Tablet) 50 mcg PO DAILY [facility] Last Admin: 01/01/25 10:08 Dose: 50 mcg Allergies Allergies Allergy/AdvReac Type Severity Reaction Status Date / Time meperidine (From Demerol) AdvReac Intermediate Rash Verified 08/23/24 19:34 morphine AdvReac Intermediate Rash Verified 08/23/24 19:35 Sulfa (Sulfonamide AdvReac Intermediate Rash Verified 08/23/24 19:36 Antibiotics) Assessment & Plan Assessment & Plan (1) Schizoaffective disorder: Status: Acute Code(s): F25.9 - Schizoaffective disorder, unspecified Plan Plan stable. continue current mgmt. awaiting placement. 12/10/24- no change CTP 12/11/24- patient flat but responsive- CTP 12/12: no change, continue current mgmt. 12/13: no change, denies any Sx or concerns. appears to be growing weaker due to spending so much time in bed, per OT; pt was encouraged by OT to be up and about more. 12/14: no change. continue current mgmt. 12/15 continue tx . 12/16 continue tx. 12/17: Continue current regimen and plans 12/18: Continue current regimen and plans 12/19: stable. continue current mgmt. 12/20: no change in presentation. continue current mgmt. 12/21: continues as per prior. awaiting placement. 12/22: continues as per prior. awaiting placement. 12/23 continue tx 12/24 continue tx. 12/25 ordered urologist consult for incontinence 12/27 continue tx. awaiting placement. 12/28/24: Put treatment team, patient is awaiting for placement, isolated in room, out for meals but not attended to groups today. Flat affect, mild depressed, no side effects. Continue to encourage groups and out more on the unit for activities. Patient has not seen by urologist for incontinence. 12/30/2024: No change 12/31: no changes 01/01: no changes Reason for continued inpatient stay Substantial Risk for: rapid decompensation Time Spent With Patient Time: Total time managing care of this patient today ____ minutes.
[2025-01-01 20:00] VITALS: BP 118/55; PULSE 71; RESP 16; TEMP 37; O2SAT 95
[2025-01-02 08:00] VITALS: BP 132/78; PULSE 95; RESP 16; TEMP 36.2; O2SAT 96
--- NOTE | 2025-01-02 08:50 | P.PNPSI_ITS ---
Subjective Subjective Date of Service: 01/02/25 Reason For Visit: bipolar 1 disorder current or most recent epi Subjective Notes: Conditional Voluntary Healthcare Proxy: Yes Interim History: Pt slept through the night. She is taking medications as prescribed. She denies any concerns. no overt psychosis or delusions. Minimally interacting with peers or staff but no aggression. VS stable. No recent labs. I will schedule routine labs for tomorrow. Medication Compliance: Yes Review of Systems Review of Systems nothing acute Yes all other systems are reviewed and are negative Mental Status Exam Mental Status Exam Narrative: Appearance: adequately dressed, poor self care, in bed Psychomotor: some retardation, isolated in room Speech: mostly clear, slow to respond. TP: [place] TC: WNL Mood: fine Affect: Flat SI: Denies HI: Denies VH/AH: Denies Delusions: no overt delusional content noted or reported Insight/judgment: impaired/poor Diagnostics Vital Signs (24Hr): Vital Signs - 24 hr 01/01/25 20:00 Temperature 98.6 F Pulse Rate 71 Respiratory Rate 16 Blood Pressure 118/55 L Pulse Oximetry 95 Oxygen Delivery Method Room Air BMI result Body Mass Index 23.1 Labs 11/15/24 11:02 11/15/24 11:02 Imaging Radiology Impressions: ITS Impressions Head CT 08/25/24 11:33 IMPRESSION: No acute intracranial abnormality. Electronically signed by: Cj Colunga MD 08/25/2024 12:12 PM EST RP KUB X-Ray 10/28/24 09:50 IMPRESSION: Abundant stool without intestinal obstruction pattern. Electronically signed by: Audie Uribe MD 10/28/2024 10:02 AM EDT RP Medications Medications Current Medications Acetaminophen (Acetaminophen 325 Mg Tablet) 325 mg PO Q6H PRN PRN Reason: Pain, Mild (Pain Scale 1-3) Aripiprazole (Aripiprazole 30 Mg Tablet) 30 mg PO DAILY [facility] Last Admin: 01/01/25 10:08 Dose: 30 mg Benzocaine (Throat Lozenge, Medicated Lozenge) 1 lozenge MUCOUS MEM Q1H PRN PRN Reason: Sore Throat Last Admin: 09/01/24 06:09 Dose: 1 lozenge Guaifenesin/Dextromethorphan (Guaifenesin Dm 200/20/10 Ml 10 Ml Syrup) 10 ml PO Q4H PRN PRN Reason: Cough Last Admin: 08/30/24 05:47 Dose: 10 ml Levothyroxine Sodium (Levothyroxine Sodium 75 Mcg Tablet) 75 mcg PO DAILY@0600 [facility] Last Admin: 01/02/25 05:48 Dose: 75 mcg Lidocaine/Diphenhydr/Alum/Mg/Simeth (Mag&Al/Sim/Diphenhyd/Lidocaine 10 Ml Oral.Susp) 10 ml PO Q6H PRN; Protocol PRN Reason: Painful Gums Last Admin: 08/26/24 13:38 Dose: 10 ml Memantine (Memantine Hcl 5 Mg Tablet) 5 mg PO BID [facility] Last Admin: 01/01/25 20:46 Dose: 5 mg Olanzapine (Olanzapine Odt 10 Mg Tab.Rapdis) 5 mg TRANSLINGU Q6H PRN PRN Reason: Agitation Last Admin: 12/25/24 20:08 Dose: 5 mg Polyethylene Glycol (Polyethylene Glycol 3350 17 Gm Powd.Pack) 17 gm PO DAILY PRN PRN Reason: constipation Senna/Docusate Sodium (Sennosides/Docusate Sodium Tablet) 1 tab PO BID [facility] Last Admin: 01/01/25 20:46 Dose: 1 tab Vitamin D (Cholecalciferol (Vitamin D3) 25 Mcg Tablet) 50 mcg PO DAILY [facility] Last Admin: 01/01/25 10:08 Dose: 50 mcg Allergies Allergies Allergy/AdvReac Type Severity Reaction Status Date / Time meperidine (From Demerol) AdvReac Intermediate Rash Verified 08/23/24 19:34 morphine AdvReac Intermediate Rash Verified 08/23/24 19:35 Sulfa (Sulfonamide AdvReac Intermediate Rash Verified 08/23/24 19:36 Antibiotics) Assessment & Plan Assessment & Plan (1) Schizoaffective disorder: Status: Acute Code(s): F25.9 - Schizoaffective disorder, unspecified Plan Plan stable. continue current mgmt. awaiting placement. 12/10/24- no change CTP 12/11/24- patient flat but responsive- CTP 12/12: no change, continue current mgmt. 12/13: no change, denies any Sx or concerns. appears to be growing weaker due to spending so much time in bed, per OT; pt was encouraged by OT to be up and about more. 12/14: no change. continue current mgmt. 12/15 continue tx . 12/16 continue tx. 12/17: Continue current regimen and plans 12/18: Continue current regimen and plans 12/19: stable. continue current mgmt. 12/20: no change in presentation. continue current mgmt. 12/21: continues as per prior. awaiting placement. 12/22: continues as per prior. awaiting placement. 12/23 continue tx 12/24 continue tx. 12/25 ordered urologist consult for incontinence 12/27 continue tx. awaiting placement. 12/28/24: Put treatment team, patient is awaiting for placement, isolated in room, out for meals but not attended to groups today. Flat affect, mild depressed, no side effects. Continue to encourage groups and out more on the unit for activities. Patient has not seen by urologist for incontinence. 12/30/2024: No change 12/31: no changes 01/01: no changes 01/02 pt stable, awaiting placement. WIll order routine labs including cbc, cmp, TSH, Reason for continued inpatient stay Substantial Risk for: inability to function Time Spent With Patient Time: Total time managing care of this patient today ____ minutes.
[2025-01-02] MEDS: ARIPiprazole 30 MG TABLET PO (09:02)
[2025-01-02 20:00] VITALS: BP 145/63; PULSE 92; RESP 16; TEMP 36.2; O2SAT 96
[2025-01-03 07:44] LABS: MANUAL DIFF FLAG NO
[2025-01-03 07:48] LABS: Hematocrit 38.0 % (37.0-47.0); Hemoglobin 13.2 g/dl (12.0-16.0); Imm Gran Abs Auto 0.02 X10*3/uL (0.00-0.03); Imm Gran Pct Auto 0.2 % (0.0-0.4); Lymphocytes Absolute Auto 1.9 X10*3/uL (1.2-4.9); Mean Corpuscular HGB Conc 34.7 g/dl (31.0-35.0); Mean Corpuscular Hemoglobin 30.8 pg (27.0-33.0); Mean Corpuscular Volume 88.8 fL (80.0-98.0); NRBC Abs Auto 0.000 X10*3/uL (0.0-0.012); NRBC Pct Auto 0.0 /100WBC (0.0-0.2); Platelet Count 295 X10*3/uL (160-400); Red Blood Count 4.28 X10*6/uL (4.20-5.50); White Blood Count 8.5 X10*3/uL (4.8-10.8)
[2025-01-03 08:00] VITALS: BP 119/70; PULSE 101; RESP 18; TEMP 36.7; O2SAT 98
[2025-01-03 08:07] LABS: Hemoglobin A1C 126.9902 umol/L; Total Hemoglobin (HGBA1C) 3512.5914 umol/L
[2025-01-03 08:11] LABS: Alanine Aminotransferase 10 U/L (0-31); Albumin Level 4.3 g/dL (3.5-5.0); Alkaline Phosphatase 80 U/L (39-117); Anion Gap 14 (12-20); Aspartate Amino Transferase 27 U/L (5-31); Blood Urea Nitrogen 12 mg/dL (9-16); Calcium 9.8 mg/dL (8.4-10.2); Carbon Dioxide 24 mmol/L (22-29); Chloride 107 mmol/L (96-108); Creatinine Clr Calc Pharmacy 63.2; Estimated Glomerular Filt Rate > 60; Potassium 4.6 mmol/L (3.3-5.1); Sodium 140 mmol/L (135-145); Total Protein 7.4 g/dL (6.5-8.0)
[2025-01-03] MEDS: OLANZapine ODT 10 MG TAB.RAPDIS 5 MG TRANSLINGU (08:40)
[2025-01-03] MEDS: ARIPiprazole 30 MG TABLET PO (08:40)
[2025-01-03 09:01] LABS: Free T4 (Free Thyroxine) 1.50 ng/dL (0.71-1.85)
--- NOTE | 2025-01-03 10:28 | PC.NURSE ---
pt reports 02/05 anxiety, Olanzapine 5mg given with good effect
--- NOTE | 2025-01-03 10:48 | PM.EVENT ---
Event Note Date of Service: 01/03/25 Event Note: Labs reviewed, TSH noted to be 0.07 and free T4 1.50, patient has been taking levothyroxine 75 mcg daily. We will decrease to 50 mcg daily and recheck in 4 weeks. Time Spent With Patient Time: Total time managing care of this patient today ____ minutes.
--- NOTE | 2025-01-03 16:39 | HO.PSYCHPN ---
Subjective Subjective Date of Service: 01/03/25 Reason For Visit: bipolar 1 disorder current or most recent epi Subjective Notes: Conditional Voluntary Interim History: Pt sleeping through the night. Labs completed on 01/02 as routine labs- cbc improved, no longer with signs of enemia. CMP with no electrolyte imbalances. Low TSH 0.07, free t4 1.50 on levothyroxine for hypothyroidism but dose may need to be adjusted as TSH is low. Face noted to be redish, pt reports feeling burning sensation all over. some of blushing anf itchiness may be related to iatrogenic hyperthyroidism. consult for hospitalist ordered. Medication Compliance: Yes Side effects from medications: No Attending Groups: Intermittent Review of Systems Review of Systems Negative except for what is noted in the HPI Yes all other systems are reviewed and are negative Mental Status Exam Mental Status Exam Narrative: Appearance: adequately dressed, poor self care, in bed Psychomotor: some retardation, isolated in room Speech: mostly clear, slow to respond. TP: [place] TC: WNL Mood: fine Affect: Flat SI: Denies HI: Denies VH/AH: Denies Delusions: no overt delusional content noted or reported Insight/judgment: impaired/poor Patient Appearance: Well Grooomed Patient Orientation: Person and Situation Level of Consciousness: Awake and Alert Patient Behavior: Passive and Isolative Mood Description: Constricted Affect Description: Flat Patient Cognition Impaired: No Ability to Follow Directions: Fair Speech Pattern: Clear and Impoverished Memory Description: Intact Diagnostics Vital Signs (24Hr): Vital Signs - 24 hr 01/02/25 20:00 01/03/25 08:00 Temperature 97.2 F 98.1 F Pulse Rate 92 101 H Respiratory Rate 16 18 Blood Pressure 145/63 H 119/70 Pulse Oximetry 96 98 Oxygen Delivery Method Room Air Room Air BMI result Body Mass Index 23.1 Labs 01/03/25 07:32 01/03/25 07:32 Labs: Laboratory Results - last 48 hr 01/03/25 07:32 WBC 8.5 RBC 4.28 Hgb 13.2 Hct 38.0 MCV 88.8 MCH 30.8 MCHC 34.7 RDW 13.0 Plt Count 295 MPV 9.8 Immature Gran % (Auto) 0.2 Neut % (Auto) 69.5 Lymph % (Auto) 22.6 [place] % (Auto) 7.3 Eos % (Auto) 0.2 Baso % (Auto) 0.2 Lymph # (Auto) 1.9 [place] # (Auto) 0.6 Eos # (Auto) 0.0 Baso # (Auto) 0.0 Abs Immat Gran (auto) 0.02 Absolute Neuts (auto) 5.9 Absolute Nucleated RBC 0.000 Nucleated RBC % (auto) 0.0 Sodium 140 Potassium 4.6 D Chloride 107 Carbon Dioxide 24 Anion Gap 14 BUN 12 Creatinine 0.58 Estim Creat Clear Calc 63.2 Estimated GFR > 60 Random Glucose 108 Estimat Average Glucose 111 Hemoglobin A1c % 5.5 Calcium 9.8 Total Bilirubin 0.3 AST 27 ALT 10 Alkaline Phosphatase 80 Total Protein 7.4 Albumin 4.3 TSH 0.07 L Free T4 1.50 Imaging Radiology Impressions: ITS Impressions Head CT 08/25/24 11:33 IMPRESSION: No acute intracranial abnormality. Electronically signed by: Cj Colunga MD 08/25/2024 12:12 PM EST RP KUB X-Ray 10/28/24 09:50 IMPRESSION: Abundant stool without intestinal obstruction pattern. Electronically signed by: Audie Uribe MD 10/28/2024 10:02 AM EDT RP Medications Medications Current Medications Acetaminophen (Acetaminophen 325 Mg Tablet) 325 mg PO Q6H PRN PRN Reason: Pain, Mild (Pain Scale 1-3) Aripiprazole (Aripiprazole 30 Mg Tablet) 30 mg PO DAILY [facility] Last Admin: 01/03/25 08:40 Dose: 30 mg Benzocaine (Throat Lozenge, Medicated Lozenge) 1 lozenge MUCOUS MEM Q1H PRN PRN Reason: Sore Throat Last Admin: 09/01/24 06:09 Dose: 1 lozenge Guaifenesin/Dextromethorphan (Guaifenesin Dm 200/20/10 Ml 10 Ml Syrup) 10 ml PO Q4H PRN PRN Reason: Cough Last Admin: 08/30/24 05:47 Dose: 10 ml Levothyroxine Sodium (Levothyroxine Sodium 50 Mcg Tablet) 50 mcg PO DAILY@0600 [facility] Lidocaine/Diphenhydr/Alum/Mg/Simeth (Mag&Al/Sim/Diphenhyd/Lidocaine 10 Ml Oral.Susp) 10 ml PO Q6H PRN; Protocol PRN Reason: Painful Gums Last Admin: 08/26/24 13:38 Dose: 10 ml Memantine (Memantine Hcl 5 Mg Tablet) 5 mg PO BID [facility] Last Admin: 01/03/25 08:41 Dose: 5 mg Olanzapine (Olanzapine Odt 10 Mg Tab.Rapdis) 5 mg TRANSLINGU Q6H PRN PRN Reason: Agitation Last Admin: 01/03/25 08:40 Dose: 5 mg Polyethylene Glycol (Polyethylene Glycol 3350 17 Gm Powd.Pack) 17 gm PO DAILY PRN PRN Reason: constipation Senna/Docusate Sodium (Sennosides/Docusate Sodium Tablet) 1 tab PO BID [facility] Last Admin: 01/03/25 08:41 Dose: 1 tab Vitamin D (Cholecalciferol (Vitamin D3) 25 Mcg Tablet) 50 mcg PO DAILY [facility] Last Admin: 01/03/25 08:40 Dose: 50 mcg Allergies Allergies Allergy/AdvReac Type Severity Reaction Status Date / Time meperidine (From Demerol) AdvReac Intermediate Rash Verified 08/23/24 19:34 morphine AdvReac Intermediate Rash Verified 08/23/24 19:35 Sulfa (Sulfonamide AdvReac Intermediate Rash Verified 08/23/24 19:36 Antibiotics) Assessment & Plan Assessment & Plan (1) Schizoaffective disorder: Status: Acute Code(s): F25.9 - Schizoaffective disorder, unspecified Plan Plan stable. continue current mgmt. awaiting placement. 12/10/24- no change CTP 12/11/24- patient flat but responsive- CTP 12/12: no change, continue current mgmt. 12/13: no change, denies any Sx or concerns. appears to be growing weaker due to spending so much time in bed, per OT; pt was encouraged by OT to be up and about more. 12/14: no change. continue current mgmt. 12/15 continue tx . 12/16 continue tx. 12/17: Continue current regimen and plans 12/18: Continue current regimen and plans 12/19: stable. continue current mgmt. 12/20: no change in presentation. continue current mgmt. 12/21: continues as per prior. awaiting placement. 12/22: continues as per prior. awaiting placement. 12/23 continue tx 12/24 continue tx. 12/25 ordered urologist consult for incontinence 12/27 continue tx. awaiting placement. 12/28/24: Put treatment team, patient is awaiting for placement, isolated in room, out for meals but not attended to groups today. Flat affect, mild depressed, no side effects. Continue to encourage groups and out more on the unit for activities. Patient has not seen by urologist for incontinence. 12/30/2024: No change 12/31: no changes 01/01: no changes 01/02 pt stable, awaiting placement. WIll order routine labs including cbc, cmp, TSH, 01/03 cbc unremarkable and improved, no longer showing anemia. CMP with no electrolyte imbalances. However, TSH low 0.07 on levothyroxine, hospitalist consult ordered (dose of levothyrozine adjusted). 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 Reason for continued inpatient stay Substantial Risk for: inability to function Time Spent With Patient Time: Total time managing care of this patient today ____ minutes.
[2025-01-03 20:00] VITALS: BP 119/56; PULSE 87; RESP 16; TEMP 36.1; O2SAT 96
[2025-01-04 08:00] VITALS: BP 130/69; PULSE 97; RESP 18; TEMP 36.6; O2SAT 97
[2025-01-04] MEDS: ARIPiprazole 30 MG TABLET PO (08:52)
--- NOTE | 2025-01-04 11:53 | P.PNIM_ITS ---
Subjective Subjective Date of Service: 01/04/25 Interval History: Asked to see patient for facial flushing. Patient had lab work yesterday CBC and BMP that were within normal limits. Her TSH was noted to be low, her levothyroxine was adjusted and she will have repeat labs in 4 weeks. She has been afebrile, on exam she denies any pain or discomfort. No medication changes, no changes in her usual regime. No reported diarrhea. On exam no wheezing or tachycardia. Patient just came out of the shower, her colors within normal limits. Respiratory rate even and regular she does not appear to be in any distress Review of Systems Negative except for what is noted in the HPI Physical Exam 2 Vital Signs: Vital Signs: Last Vital Signs Temp 97.9 F 01/04/25 08:00 Pulse 97 01/04/25 08:00 Resp 18 01/04/25 08:00 BP 130/69 01/04/25 08:00 Pulse Ox 97 01/04/25 08:00 O2 Del Method Room Air 01/04/25 08:00 BMI result Body Mass Index 23.1 CONST: Alert and oriented, in NAD. Well nourished HEENT: Normocephalic, atraumatic, MMM RESP: Lungs clear, RRR even and regular HEART:,RRR, S1, S2. No murmur, no edema GI:Abdomen Soft NT, ND. + BS times four :Deferred SKIN: Warm dry and intact, no visible lesions or rashes NEURO:CN II-XII Intact bilaterally,Speech clear PSYCH: Quiet affect Objective Data Active Medications Acetaminophen (Acetaminophen 325 Mg Tablet) 325 mg PO Q6H PRN PRN Reason: Pain, Mild (Pain Scale 1-3) Aripiprazole (Aripiprazole 30 Mg Tablet) 30 mg PO DAILY [facility] Last Admin: 01/04/25 08:52 Dose: 30 mg Documented By: KARIE Benzocaine (Throat Lozenge, Medicated Lozenge) 1 lozenge MUCOUS MEM Q1H PRN PRN Reason: Sore Throat Last Admin: 09/01/24 06:09 Dose: 1 lozenge Documented By: CARTER Guaifenesin/Dextromethorphan (Guaifenesin Dm 200/20/10 Ml 10 Ml Syrup) 10 ml PO Q4H PRN PRN Reason: Cough Last Admin: 08/30/24 05:47 Dose: 10 ml Documented By: PHYLLIS Levothyroxine Sodium (Levothyroxine Sodium 50 Mcg Tablet) 50 mcg PO DAILY@0600 [facility] Last Admin: 01/04/25 05:58 Dose: 50 mcg Documented By: REA Lidocaine/Diphenhydr/Alum/Mg/Simeth (Mag&Al/Sim/Diphenhyd/Lidocaine 10 Ml Oral.Susp) 10 ml PO Q6H PRN; Protocol PRN Reason: Painful Gums Last Admin: 08/26/24 13:38 Dose: 10 ml Documented By: JAYNE Memantine (Memantine Hcl 5 Mg Tablet) 5 mg PO BID [facility] Last Admin: 01/04/25 08:52 Dose: 5 mg Documented By: KARIE Olanzapine (Olanzapine Odt 10 Mg Tab.Rapdis) 5 mg TRANSLINGU Q6H PRN PRN Reason: Agitation Last Admin: 01/03/25 08:40 Dose: 5 mg Documented By: KARIE Polyethylene Glycol (Polyethylene Glycol 3350 17 Gm Powd.Pack) 17 gm PO DAILY PRN PRN Reason: constipation Senna/Docusate Sodium (Sennosides/Docusate Sodium Tablet) 1 tab PO BID [facility] Last Admin: 01/04/25 08:52 Dose: 1 tab Documented By: KARIE Vitamin D (Cholecalciferol (Vitamin D3) 25 Mcg Tablet) 50 mcg PO DAILY [facility] Last Admin: 01/04/25 08:51 Dose: 50 mcg Documented By: KARIE Labs 01/03/25 07:32 01/03/25 07:32 Assessment and Plan (1) Facial flushing: Status: Acute Plan Facial flushing Likely related to low TSH Medication adjusted yesterday Labs were within normal limits, no change in routine or medications. Patient does not have evidence of discomfort. Continue to monitor and update provider with changes. Quality Stroke Does the patient have a stroke diagnosis?: No VTE Prior VTE?: No VTE Risk Level:: Medical - low VTE Device Contraindication: Treatment Not Indicated VTE Drug Contraindication: Treatment Not Indicated
--- NOTE | 2025-01-04 16:36 | P.PNPSI_ITS ---
Subjective Subjective Date of Service: 01/04/25 Reason For Visit: bipolar 1 disorder current or most recent epi Subjective Notes: Conditional Voluntary Healthcare Proxy: Yes Interim History: Pt slept through the night. She reports doing better in terms of burning sensation. No SI/HI. No behavioral concerns. Review of Systems Review of Systems Negative except for what is noted in the HPI Yes all other systems are reviewed and are negative Mental Status Exam Mental Status Exam Narrative: Appearance: adequately dressed, poor self care, in bed Psychomotor: some retardation, isolated in room Speech: mostly clear, slow to respond. TP: [place] TC: WNL Mood: fine Affect: Flat SI: Denies HI: Denies VH/AH: Denies Delusions: no overt delusional content noted or reported Insight/judgment: impaired/poor Diagnostics Vital Signs (24Hr): Vital Signs - 24 hr 01/03/25 20:00 01/04/25 08:00 Temperature 97 F 97.9 F Pulse Rate 87 97 Respiratory Rate 16 18 Blood Pressure 119/56 L 130/69 Pulse Oximetry 96 97 Oxygen Delivery Method Room Air Room Air BMI result Body Mass Index 23.1 Labs 01/03/25 07:32 01/03/25 07:32 Labs: Laboratory Results - last 48 hr 01/03/25 07:32 WBC 8.5 RBC 4.28 Hgb 13.2 Hct 38.0 MCV 88.8 MCH 30.8 MCHC 34.7 RDW 13.0 Plt Count 295 MPV 9.8 Immature Gran % (Auto) 0.2 Neut % (Auto) 69.5 Lymph % (Auto) 22.6 [place] % (Auto) 7.3 Eos % (Auto) 0.2 Baso % (Auto) 0.2 Lymph # (Auto) 1.9 [place] # (Auto) 0.6 Eos # (Auto) 0.0 Baso # (Auto) 0.0 Abs Immat Gran (auto) 0.02 Absolute Neuts (auto) 5.9 Absolute Nucleated RBC 0.000 Nucleated RBC % (auto) 0.0 Sodium 140 Potassium 4.6 D Chloride 107 Carbon Dioxide 24 Anion Gap 14 BUN 12 Creatinine 0.58 Estim Creat Clear Calc 63.2 Estimated GFR > 60 Random Glucose 108 Estimat Average Glucose 111 Hemoglobin A1c % 5.5 Calcium 9.8 Total Bilirubin 0.3 AST 27 ALT 10 Alkaline Phosphatase 80 Total Protein 7.4 Albumin 4.3 TSH 0.07 L Free T4 1.50 Imaging Radiology Impressions: ITS Impressions Head CT 08/25/24 11:33 IMPRESSION: No acute intracranial abnormality. Electronically signed by: Cj Colunga MD 08/25/2024 12:12 PM EST RP KUB X-Ray 10/28/24 09:50 IMPRESSION: Abundant stool without intestinal obstruction pattern. Electronically signed by: Audie Uribe MD 10/28/2024 10:02 AM EDT RP Medications Medications Current Medications Acetaminophen (Acetaminophen 325 Mg Tablet) 325 mg PO Q6H PRN PRN Reason: Pain, Mild (Pain Scale 1-3) Aripiprazole (Aripiprazole 30 Mg Tablet) 30 mg PO DAILY [facility] Last Admin: 01/04/25 08:52 Dose: 30 mg Benzocaine (Throat Lozenge, Medicated Lozenge) 1 lozenge MUCOUS MEM Q1H PRN PRN Reason: Sore Throat Last Admin: 09/01/24 06:09 Dose: 1 lozenge Guaifenesin/Dextromethorphan (Guaifenesin Dm 200/20/10 Ml 10 Ml Syrup) 10 ml PO Q4H PRN PRN Reason: Cough Last Admin: 08/30/24 05:47 Dose: 10 ml Levothyroxine Sodium (Levothyroxine Sodium 50 Mcg Tablet) 50 mcg PO DAILY@0600 [facility] Last Admin: 01/04/25 05:58 Dose: 50 mcg Lidocaine/Diphenhydr/Alum/Mg/Simeth (Mag&Al/Sim/Diphenhyd/Lidocaine 10 Ml Oral.Susp) 10 ml PO Q6H PRN; Protocol PRN Reason: Painful Gums Last Admin: 08/26/24 13:38 Dose: 10 ml Memantine (Memantine Hcl 5 Mg Tablet) 5 mg PO BID [facility] Last Admin: 01/04/25 08:52 Dose: 5 mg Olanzapine (Olanzapine Odt 10 Mg Tab.Rapdis) 5 mg TRANSLINGU Q6H PRN PRN Reason: Agitation Last Admin: 01/03/25 08:40 Dose: 5 mg Polyethylene Glycol (Polyethylene Glycol 3350 17 Gm Powd.Pack) 17 gm PO DAILY PRN PRN Reason: constipation Senna/Docusate Sodium (Sennosides/Docusate Sodium Tablet) 1 tab PO BID [facility] Last Admin: 01/04/25 08:52 Dose: 1 tab Vitamin D (Cholecalciferol (Vitamin D3) 25 Mcg Tablet) 50 mcg PO DAILY [facility] Last Admin: 01/04/25 08:51 Dose: 50 mcg Allergies Allergies Allergy/AdvReac Type Severity Reaction Status Date / Time meperidine (From Demerol) AdvReac Intermediate Rash Verified 08/23/24 19:34 morphine AdvReac Intermediate Rash Verified 08/23/24 19:35 Sulfa (Sulfonamide AdvReac Intermediate Rash Verified 08/23/24 19:36 Antibiotics) Assessment & Plan Assessment & Plan (1) Schizoaffective disorder: Status: Acute Code(s): F25.9 - Schizoaffective disorder, unspecified Plan Plan stable. continue current mgmt. awaiting placement. 12/10/24- no change CTP 12/11/24- patient flat but responsive- CTP 12/12: no change, continue current mgmt. 12/13: no change, denies any Sx or concerns. appears to be growing weaker due to spending so much time in bed, per OT; pt was encouraged by OT to be up and about more. 12/14: no change. continue current mgmt. 12/15 continue tx . 12/16 continue tx. 12/17: Continue current regimen and plans 12/18: Continue current regimen and plans 12/19: stable. continue current mgmt. 12/20: no change in presentation. continue current mgmt. 12/21: continues as per prior. awaiting placement. 12/22: continues as per prior. awaiting placement. 12/23 continue tx 12/24 continue tx. 12/25 ordered urologist consult for incontinence 12/27 continue tx. awaiting placement. 12/28/24: Put treatment team, patient is awaiting for placement, isolated in room, out for meals but not attended to groups today. Flat affect, mild depressed, no side effects. Continue to encourage groups and out more on the unit for activities. Patient has not seen by urologist for incontinence. 12/30/2024: No change 12/31: no changes 01/01: no changes 01/02 pt stable, awaiting placement. WIll order routine labs including cbc, cmp, TSH, 01/03 cbc unremarkable and improved, no longer showing anemia. CMP with no electrolyte imbalances. However, TSH low 0.07 on levothyroxine, hospitalist consult ordered (dose of levothyrozine adjusted). 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 01/04 continue tx. Reason for continued inpatient stay Substantial Risk for: inability to function Time Spent With Patient Time: Total time managing care of this patient today ____ minutes.
[2025-01-04 20:00] VITALS: BP 97/52; PULSE 70; RESP 16; TEMP 37.1; O2SAT 95
[2025-01-05 07:50] VITALS: BP 110/62; PULSE 91; RESP 18; TEMP 36.8; O2SAT 95
[2025-01-05] MEDS: ARIPiprazole 30 MG TABLET PO (08:32)
[2025-01-05 13:41] VITALS: BMI 23.5
[2025-01-05 20:00] VITALS: BP 98/55; PULSE 78; RESP 18; TEMP 36.9; O2SAT 96
--- NOTE | 2025-01-05 20:58 | HO.PSYCHPN ---
Subjective Subjective Date of Service: 01/05/25 Reason For Visit: bipolar 1 disorder current or most recent epi Subjective Notes: Conditional Voluntary Healthcare Proxy: Yes Interim History: Pt slept through the night. She reports doing better in terms of burning sensation. No SI/HI. No behavioral concerns. VS stable. Review of Systems Review of Systems Negative except for what is noted in the HPI Yes all other systems are reviewed and are negative Mental Status Exam Mental Status Exam Narrative: Appearance: adequately dressed, poor self care, in bed Psychomotor: some retardation, isolated in room Speech: mostly clear, slow to respond. TP: [place] TC: WNL Mood: fine Affect: Flat SI: Denies HI: Denies VH/AH: Denies Delusions: no overt delusional content noted or reported Insight/judgment: impaired/poor Diagnostics Vital Signs (24Hr): Vital Signs - 24 hr 01/05/25 07:50 01/05/25 20:00 Temperature 98.2 F 98.4 F Pulse Rate 91 78 Respiratory Rate 18 18 Blood Pressure 110/62 98/55 L Pulse Oximetry 95 96 Oxygen Delivery Method Room Air Room Air BMI result Body Mass Index 23.5 Labs 01/03/25 07:32 01/03/25 07:32 Imaging Radiology Impressions: ITS Impressions Head CT 08/25/24 11:33 IMPRESSION: No acute intracranial abnormality. Electronically signed by: Cj Colunga MD 08/25/2024 12:12 PM EST RP KUB X-Ray 10/28/24 09:50 IMPRESSION: Abundant stool without intestinal obstruction pattern. Electronically signed by: Audie Uribe MD 10/28/2024 10:02 AM EDT RP Medications Medications Current Medications Acetaminophen (Acetaminophen 325 Mg Tablet) 325 mg PO Q6H PRN PRN Reason: Pain, Mild (Pain Scale 1-3) Aripiprazole (Aripiprazole 30 Mg Tablet) 30 mg PO DAILY [facility] Last Admin: 01/05/25 08:32 Dose: 30 mg Benzocaine (Throat Lozenge, Medicated Lozenge) 1 lozenge MUCOUS MEM Q1H PRN PRN Reason: Sore Throat Last Admin: 09/01/24 06:09 Dose: 1 lozenge Guaifenesin/Dextromethorphan (Guaifenesin Dm 200/20/10 Ml 10 Ml Syrup) 10 ml PO Q4H PRN PRN Reason: Cough Last Admin: 08/30/24 05:47 Dose: 10 ml Levothyroxine Sodium (Levothyroxine Sodium 50 Mcg Tablet) 50 mcg PO DAILY@0600 [facility] Last Admin: 01/05/25 06:08 Dose: 50 mcg Lidocaine/Diphenhydr/Alum/Mg/Simeth (Mag&Al/Sim/Diphenhyd/Lidocaine 10 Ml Oral.Susp) 10 ml PO Q6H PRN; Protocol PRN Reason: Painful Gums Last Admin: 08/26/24 13:38 Dose: 10 ml Memantine (Memantine Hcl 5 Mg Tablet) 5 mg PO BID [facility] Last Admin: 01/05/25 20:19 Dose: 5 mg Olanzapine (Olanzapine Odt 10 Mg Tab.Rapdis) 5 mg TRANSLINGU Q6H PRN PRN Reason: Agitation Last Admin: 01/03/25 08:40 Dose: 5 mg Polyethylene Glycol (Polyethylene Glycol 3350 17 Gm Powd.Pack) 17 gm PO DAILY PRN PRN Reason: constipation Senna/Docusate Sodium (Sennosides/Docusate Sodium Tablet) 1 tab PO BID [facility] Last Admin: 01/05/25 20:19 Dose: 1 tab Vitamin D (Cholecalciferol (Vitamin D3) 25 Mcg Tablet) 50 mcg PO DAILY [facility] Last Admin: 01/05/25 08:33 Dose: 50 mcg Allergies Allergies Allergy/AdvReac Type Severity Reaction Status Date / Time meperidine (From Demerol) AdvReac Intermediate Rash Verified 08/23/24 19:34 morphine AdvReac Intermediate Rash Verified 08/23/24 19:35 Sulfa (Sulfonamide AdvReac Intermediate Rash Verified 08/23/24 19:36 Antibiotics) Assessment & Plan Assessment & Plan (1) Schizoaffective disorder: Status: Acute Code(s): F25.9 - Schizoaffective disorder, unspecified Plan Plan stable. continue current mgmt. awaiting placement. 12/10/24- no change CTP 12/11/24- patient flat but responsive- CTP 12/12: no change, continue current mgmt. 12/13: no change, denies any Sx or concerns. appears to be growing weaker due to spending so much time in bed, per OT; pt was encouraged by OT to be up and about more. 12/14: no change. continue current mgmt. 12/15 continue tx . 12/16 continue tx. 12/17: Continue current regimen and plans 12/18: Continue current regimen and plans 12/19: stable. continue current mgmt. 12/20: no change in presentation. continue current mgmt. 12/21: continues as per prior. awaiting placement. 12/22: continues as per prior. awaiting placement. 12/23 continue tx 12/24 continue tx. 12/25 ordered urologist consult for incontinence 12/27 continue tx. awaiting placement. 12/28/24: Put treatment team, patient is awaiting for placement, isolated in room, out for meals but not attended to groups today. Flat affect, mild depressed, no side effects. Continue to encourage groups and out more on the unit for activities. Patient has not seen by urologist for incontinence. 12/30/2024: No change 12/31: no changes 01/01: no changes 01/02 pt stable, awaiting placement. WIll order routine labs including cbc, cmp, TSH, 01/03 cbc unremarkable and improved, no longer showing anemia. CMP with no electrolyte imbalances. However, TSH low 0.07 on levothyroxine, hospitalist consult ordered (dose of levothyrozine adjusted). 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 01/04 continue tx. 01/05 continue tx. Reason for continued inpatient stay Substantial Risk for: inability to function Time Spent With Patient Time: Total time managing care of this patient today ____ minutes.
[2025-01-06 08:00] VITALS: BP 109/54; PULSE 74; RESP 14; TEMP 2.3; TEMP 36.2; O2SAT 97
[2025-01-06] MEDS: ARIPiprazole 30 MG TABLET PO (09:13)
--- NOTE | 2025-01-06 17:09 | P.PNPSI_ITS ---
Subjective Subjective Date of Service: 01/06/25 Reason For Visit: bipolar 1 disorder current or most recent epi Subjective Notes: Conditional Voluntary Healthcare Proxy: Yes Interim History: Pt slept through the night. She reports doing better in terms of burning sensation. No SI/HI. No behavioral concerns. VS stable. Review of Systems Review of Systems Negative except for what is noted in the HPI Yes all other systems are reviewed and are negative Mental Status Exam Mental Status Exam Narrative: Appearance: adequately dressed, poor self care, in bed Psychomotor: some retardation, isolated in room Speech: mostly clear, slow to respond. TP: [place] TC: WNL Mood: fine Affect: Flat SI: Denies HI: Denies VH/AH: Denies Delusions: no overt delusional content noted or reported Insight/judgment: impaired/poor Diagnostics Vital Signs (24Hr): Vital Signs - 24 hr 01/05/25 20:00 01/06/25 08:00 Temperature 98.4 F 36.2 F L Pulse Rate 78 74 Respiratory Rate 18 14 Blood Pressure 98/55 L 109/54 L Pulse Oximetry 96 97 Oxygen Delivery Method Room Air Room Air BMI result Body Mass Index 23.5 Labs 01/03/25 07:32 01/03/25 07:32 Imaging Radiology Impressions: ITS Impressions Head CT 08/25/24 11:33 IMPRESSION: No acute intracranial abnormality. Electronically signed by: Cj Colunga MD 08/25/2024 12:12 PM EST RP KUB X-Ray 10/28/24 09:50 IMPRESSION: Abundant stool without intestinal obstruction pattern. Electronically signed by: Audie Uribe MD 10/28/2024 10:02 AM EDT RP Medications Medications Current Medications Acetaminophen (Acetaminophen 325 Mg Tablet) 325 mg PO Q6H PRN PRN Reason: Pain, Mild (Pain Scale 1-3) Aripiprazole (Aripiprazole 30 Mg Tablet) 30 mg PO DAILY [facility] Last Admin: 01/06/25 09:13 Dose: 30 mg Benzocaine (Throat Lozenge, Medicated Lozenge) 1 lozenge MUCOUS MEM Q1H PRN PRN Reason: Sore Throat Last Admin: 09/01/24 06:09 Dose: 1 lozenge Guaifenesin/Dextromethorphan (Guaifenesin Dm 200/20/10 Ml 10 Ml Syrup) 10 ml PO Q4H PRN PRN Reason: Cough Last Admin: 08/30/24 05:47 Dose: 10 ml Levothyroxine Sodium (Levothyroxine Sodium 50 Mcg Tablet) 50 mcg PO DAILY@0600 [facility] Last Admin: 01/06/25 06:18 Dose: 50 mcg Lidocaine/Diphenhydr/Alum/Mg/Simeth (Mag&Al/Sim/Diphenhyd/Lidocaine 10 Ml Oral.Susp) 10 ml PO Q6H PRN; Protocol PRN Reason: Painful Gums Last Admin: 08/26/24 13:38 Dose: 10 ml Memantine (Memantine Hcl 5 Mg Tablet) 5 mg PO BID [facility] Last Admin: 01/06/25 09:13 Dose: 5 mg Olanzapine (Olanzapine Odt 10 Mg Tab.Rapdis) 5 mg TRANSLINGU Q6H PRN PRN Reason: Agitation Last Admin: 01/03/25 08:40 Dose: 5 mg Polyethylene Glycol (Polyethylene Glycol 3350 17 Gm Powd.Pack) 17 gm PO DAILY PRN PRN Reason: constipation Senna/Docusate Sodium (Sennosides/Docusate Sodium Tablet) 1 tab PO BID [facility] Last Admin: 01/06/25 09:14 Dose: 1 tab Vitamin D (Cholecalciferol (Vitamin D3) 25 Mcg Tablet) 50 mcg PO DAILY [facility] Last Admin: 01/06/25 09:13 Dose: 50 mcg Allergies Allergies Allergy/AdvReac Type Severity Reaction Status Date / Time meperidine (From Demerol) AdvReac Intermediate Rash Verified 08/23/24 19:34 morphine AdvReac Intermediate Rash Verified 08/23/24 19:35 Sulfa (Sulfonamide AdvReac Intermediate Rash Verified 08/23/24 19:36 Antibiotics) Assessment & Plan Assessment & Plan (1) Schizoaffective disorder: Status: Acute Code(s): F25.9 - Schizoaffective disorder, unspecified Plan Plan stable. continue current mgmt. awaiting placement. 12/10/24- no change CTP 12/11/24- patient flat but responsive- CTP 12/12: no change, continue current mgmt. 12/13: no change, denies any Sx or concerns. appears to be growing weaker due to spending so much time in bed, per OT; pt was encouraged by OT to be up and about more. 12/14: no change. continue current mgmt. 12/15 continue tx . 12/16 continue tx. 12/17: Continue current regimen and plans 12/18: Continue current regimen and plans 12/19: stable. continue current mgmt. 12/20: no change in presentation. continue current mgmt. 12/21: continues as per prior. awaiting placement. 12/22: continues as per prior. awaiting placement. 12/23 continue tx 12/24 continue tx. 12/25 ordered urologist consult for incontinence 12/27 continue tx. awaiting placement. 12/28/24: Put treatment team, patient is awaiting for placement, isolated in room, out for meals but not attended to groups today. Flat affect, mild depressed, no side effects. Continue to encourage groups and out more on the unit for activities. Patient has not seen by urologist for incontinence. 12/30/2024: No change 12/31: no changes 01/01: no changes 01/02 pt stable, awaiting placement. WIll order routine labs including cbc, cmp, TSH, 01/03 cbc unremarkable and improved, no longer showing anemia. CMP with no electrolyte imbalances. However, TSH low 0.07 on levothyroxine, hospitalist consult ordered (dose of levothyrozine adjusted). 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 01/04 continue tx. 01/05 continue tx. 01/06 continue tx. Reason for continued inpatient stay Substantial Risk for: inability to function Time Spent With Patient Time: Total time managing care of this patient today ____ minutes.
[2025-01-06 20:00] VITALS: BP 123/60; PULSE 74; RESP 18; TEMP 37.2; O2SAT 95
[2025-01-07 07:55] VITALS: BP 132/76; PULSE 76; RESP 18; TEMP 36.4; O2SAT 96
[2025-01-07] MEDS: ARIPiprazole 30 MG TABLET PO (08:14)
--- NOTE | 2025-01-07 17:31 | P.PNPSI_ITS ---
Subjective Subjective Date of Service: 01/07/25 Reason For Visit: bipolar 1 disorder current or most recent epi Interim History: Medical record and nursing notes reviewed; case discussed during rounds with team/nursing staff, and met with patient for supportive therapy/psychoeducation, as well as medication management. Patient reports she only slept for 1 hours last night. Was medication compliant, denies any safety concerns, reports a little bit anxious and depressed. She does not want to talk again tomorrow when this provider states this provider wanted to see her tomorrow again. Flat affect. Isolated herself in bed, slow to respond. Medication Compliance: Yes Side effects from medications: No Review of Systems Acute medical concerns: No Medical Review of Systems: unchanged Review of Systems Review of Systems Negative except for what is noted in the HPI Yes all other systems are reviewed and are negative Mental Status Exam Mental Status Exam Narrative: Appearance: adequately dressed, poor self care, in bed Psychomotor: some retardation, isolated in room Speech: mostly clear, slow to respond. TP: [place] TC: WNL Mood: ok Affect: Flat SI: Denies HI: Denies VH/AH: Denies Delusions: no overt delusional content noted or reported Insight/judgment: impaired/poor Diagnostics Vital Signs (24Hr): Vital Signs - 24 hr 01/06/25 20:00 01/07/25 07:55 Temperature 98.9 F 97.6 F Pulse Rate 74 76 Respiratory Rate 18 18 Blood Pressure 123/60 132/76 Pulse Oximetry 95 96 Oxygen Delivery Method Room Air Room Air BMI result Body Mass Index 23.5 Labs 01/03/25 07:32 01/03/25 07:32 Imaging Radiology Impressions: ITS Impressions Head CT 08/25/24 11:33 IMPRESSION: No acute intracranial abnormality. Electronically signed by: Cj Colunga MD 08/25/2024 12:12 PM EST RP KUB X-Ray 10/28/24 09:50 IMPRESSION: Abundant stool without intestinal obstruction pattern. Electronically signed by: Audie Uribe MD 10/28/2024 10:02 AM EDT RP Medications Medications Current Medications Acetaminophen (Acetaminophen 325 Mg Tablet) 325 mg PO Q6H PRN PRN Reason: Pain, Mild (Pain Scale 1-3) Aripiprazole (Aripiprazole 30 Mg Tablet) 30 mg PO DAILY [facility] Last Admin: 01/07/25 08:14 Dose: 30 mg Benzocaine (Throat Lozenge, Medicated Lozenge) 1 lozenge MUCOUS MEM Q1H PRN PRN Reason: Sore Throat Last Admin: 09/01/24 06:09 Dose: 1 lozenge Guaifenesin/Dextromethorphan (Guaifenesin Dm 200/20/10 Ml 10 Ml Syrup) 10 ml PO Q4H PRN PRN Reason: Cough Last Admin: 08/30/24 05:47 Dose: 10 ml Levothyroxine Sodium (Levothyroxine Sodium 50 Mcg Tablet) 50 mcg PO DAILY@0600 [facility] Last Admin: 01/07/25 06:36 Dose: 50 mcg Lidocaine/Diphenhydr/Alum/Mg/Simeth (Mag&Al/Sim/Diphenhyd/Lidocaine 10 Ml Oral.Susp) 10 ml PO Q6H PRN; Protocol PRN Reason: Painful Gums Last Admin: 08/26/24 13:38 Dose: 10 ml Memantine (Memantine Hcl 5 Mg Tablet) 5 mg PO BID [facility] Last Admin: 01/07/25 08:14 Dose: 5 mg Olanzapine (Olanzapine Odt 10 Mg Tab.Rapdis) 5 mg TRANSLINGU Q6H PRN PRN Reason: Agitation Last Admin: 01/03/25 08:40 Dose: 5 mg Polyethylene Glycol (Polyethylene Glycol 3350 17 Gm Powd.Pack) 17 gm PO DAILY PRN PRN Reason: constipation Senna/Docusate Sodium (Sennosides/Docusate Sodium Tablet) 1 tab PO BID [facility] Last Admin: 01/07/25 08:14 Dose: 1 tab Vitamin D (Cholecalciferol (Vitamin D3) 25 Mcg Tablet) 50 mcg PO DAILY [facility] Last Admin: 01/07/25 08:14 Dose: 50 mcg Allergies Allergies Allergy/AdvReac Type Severity Reaction Status Date / Time meperidine (From Demerol) AdvReac Intermediate Rash Verified 08/23/24 19:34 morphine AdvReac Intermediate Rash Verified 08/23/24 19:35 Sulfa (Sulfonamide AdvReac Intermediate Rash Verified 08/23/24 19:36 Antibiotics) Assessment & Plan Assessment & Plan (1) Schizoaffective disorder: Status: Acute Code(s): F25.9 - Schizoaffective disorder, unspecified Plan Plan stable. continue current mgmt. awaiting placement. 12/10/24- no change CTP 12/11/24- patient flat but responsive- CTP 12/12: no change, continue current mgmt. 12/13: no change, denies any Sx or concerns. appears to be growing weaker due to spending so much time in bed, per OT; pt was encouraged by OT to be up and about more. 12/14: no change. continue current mgmt. 12/15 continue tx . 12/16 continue tx. 12/17: Continue current regimen and plans 12/18: Continue current regimen and plans 12/19: stable. continue current mgmt. 12/20: no change in presentation. continue current mgmt. 12/21: continues as per prior. awaiting placement. 12/22: continues as per prior. awaiting placement. 12/23 continue tx 12/24 continue tx. 12/25 ordered urologist consult for incontinence 12/27 continue tx. awaiting placement. 12/28/24: Put treatment team, patient is awaiting for placement, isolated in room, out for meals but not attended to groups today. Flat affect, mild depressed, no side effects. Continue to encourage groups and out more on the unit for activities. Patient has not seen by urologist for incontinence. 12/30/2024: No change 12/31: no changes 01/01: no changes 01/02 pt stable, awaiting placement. WIll order routine labs including cbc, cmp, TSH, 01/03 cbc unremarkable and improved, no longer showing anemia. CMP with no electrolyte imbalances. However, TSH low 0.07 on levothyroxine, hospitalist consult ordered (dose of levothyrozine adjusted). 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 01/04 continue tx. 01/05 continue tx. 01/06 continue tx. 01/07/25: flat affect, report mild depression and anxiety. Denies side effects. Denies safety concerns. Selt report slept only an hour last night. Back pain 5/1o but declines Tylenol. Patient educated on: medication risk/benefits Informed Consent: further education needed Reason for continued inpatient stay Substantial Risk for: med/psych decompensation Time Spent With Patient Time: Total time managing care of this patient today ____ minutes.
[2025-01-07 20:00] VITALS: BP 121/61; PULSE 88; RESP 16; TEMP 37.2; O2SAT 95
[2025-01-08 07:55] VITALS: BP 138/67; PULSE 83; RESP 18; TEMP 36.6; O2SAT 95
[2025-01-08] MEDS: ARIPiprazole 30 MG TABLET PO (08:38)
--- NOTE | 2025-01-08 13:58 | HO.PSYCHPN ---
Subjective Subjective Date of Service: 01/08/25 Reason For Visit: bipolar 1 disorder current or most recent epi Subjective Notes: Conditional Voluntary Interim History: Medical record and nursing notes reviewed; case discussed during rounds with team/nursing staff, and met with patient for supportive therapy/psychoeducation, as well as medication management. Patient continue isolated as usual, ate breakfast and back to bed right after. Denies safety concerns. Reports no anxiety and depression. Calm and pleasant upon approach, flat affect. Medication compliant Medication Compliance: Yes Side effects from medications: No Attending Groups: No Review of Systems Acute medical concerns: No Medical Review of Systems: unchanged Review of Systems Review of Systems Negative except for what is noted in the HPI Yes all other systems are reviewed and are negative Mental Status Exam Mental Status Exam Narrative: Appearance: adequately dressed, poor self care, in bed Psychomotor: some retardation, isolated in room Speech: mostly clear, slow to respond. TP: [place] TC: WNL Mood: good Affect: Flat SI: Denies HI: Denies VH/AH: Denies Delusions: no overt delusional content noted or reported Insight/judgment: impaired/poor Diagnostics Vital Signs (24Hr): Vital Signs - 24 hr 01/07/25 20:00 01/08/25 07:55 Temperature 98.9 F 97.9 F Pulse Rate 88 83 Respiratory Rate 16 18 Blood Pressure 121/61 138/67 Pulse Oximetry 95 95 Oxygen Delivery Method Room Air Room Air BMI result Body Mass Index 23.5 Labs 01/03/25 07:32 01/03/25 07:32 Imaging Radiology Impressions: ITS Impressions Head CT 08/25/24 11:33 IMPRESSION: No acute intracranial abnormality. Electronically signed by: Cj Colunga MD 08/25/2024 12:12 PM EST RP KUB X-Ray 10/28/24 09:50 IMPRESSION: Abundant stool without intestinal obstruction pattern. Electronically signed by: Audie Uribe MD 10/28/2024 10:02 AM EDT RP Medications Medications Current Medications Acetaminophen (Acetaminophen 325 Mg Tablet) 325 mg PO Q6H PRN PRN Reason: Pain, Mild (Pain Scale 1-3) Aripiprazole (Aripiprazole 30 Mg Tablet) 30 mg PO DAILY [facility] Last Admin: 01/08/25 08:38 Dose: 30 mg Benzocaine (Throat Lozenge, Medicated Lozenge) 1 lozenge MUCOUS MEM Q1H PRN PRN Reason: Sore Throat Last Admin: 09/01/24 06:09 Dose: 1 lozenge Guaifenesin/Dextromethorphan (Guaifenesin Dm 200/20/10 Ml 10 Ml Syrup) 10 ml PO Q4H PRN PRN Reason: Cough Last Admin: 08/30/24 05:47 Dose: 10 ml Levothyroxine Sodium (Levothyroxine Sodium 50 Mcg Tablet) 50 mcg PO DAILY@0600 [facility] Last Admin: 01/08/25 05:24 Dose: 50 mcg Lidocaine/Diphenhydr/Alum/Mg/Simeth (Mag&Al/Sim/Diphenhyd/Lidocaine 10 Ml Oral.Susp) 10 ml PO Q6H PRN; Protocol PRN Reason: Painful Gums Last Admin: 08/26/24 13:38 Dose: 10 ml Memantine (Memantine Hcl 5 Mg Tablet) 5 mg PO BID [facility] Last Admin: 01/08/25 08:38 Dose: 5 mg Olanzapine (Olanzapine Odt 10 Mg Tab.Rapdis) 5 mg TRANSLINGU Q6H PRN PRN Reason: Agitation Last Admin: 01/03/25 08:40 Dose: 5 mg Polyethylene Glycol (Polyethylene Glycol 3350 17 Gm Powd.Pack) 17 gm PO DAILY PRN PRN Reason: constipation Senna/Docusate Sodium (Sennosides/Docusate Sodium Tablet) 1 tab PO BID [facility] Last Admin: 01/08/25 08:38 Dose: 1 tab Vitamin D (Cholecalciferol (Vitamin D3) 25 Mcg Tablet) 50 mcg PO DAILY [facility] Last Admin: 01/08/25 08:38 Dose: 50 mcg Allergies Allergies Allergy/AdvReac Type Severity Reaction Status Date / Time meperidine (From Demerol) AdvReac Intermediate Rash Verified 08/23/24 19:34 morphine AdvReac Intermediate Rash Verified 08/23/24 19:35 Sulfa (Sulfonamide AdvReac Intermediate Rash Verified 08/23/24 19:36 Antibiotics) Assessment & Plan Assessment & Plan (1) Schizoaffective disorder: Status: Acute Code(s): F25.9 - Schizoaffective disorder, unspecified Plan Plan stable. continue current mgmt. awaiting placement. 12/10/24- no change CTP 12/11/24- patient flat but responsive- CTP 12/12: no change, continue current mgmt. 12/13: no change, denies any Sx or concerns. appears to be growing weaker due to spending so much time in bed, per OT; pt was encouraged by OT to be up and about more. 12/14: no change. continue current mgmt. 12/15 continue tx . 12/16 continue tx. 12/17: Continue current regimen and plans 12/18: Continue current regimen and plans 12/19: stable. continue current mgmt. 12/20: no change in presentation. continue current mgmt. 12/21: continues as per prior. awaiting placement. 12/22: continues as per prior. awaiting placement. 12/23 continue tx 12/24 continue tx. 12/25 ordered urologist consult for incontinence 12/27 continue tx. awaiting placement. 12/28/24: Put treatment team, patient is awaiting for placement, isolated in room, out for meals but not attended to groups today. Flat affect, mild depressed, no side effects. Continue to encourage groups and out more on the unit for activities. Patient has not seen by urologist for incontinence. 12/30/2024: No change 12/31: no changes 01/01: no changes 01/02 pt stable, awaiting placement. WIll order routine labs including cbc, cmp, TSH, 01/03 cbc unremarkable and improved, no longer showing anemia. CMP with no electrolyte imbalances. However, TSH low 0.07 on levothyroxine, hospitalist consult ordered (dose of levothyrozine adjusted). 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 01/04 continue tx. 01/05 continue tx. 01/06 continue tx. 01/07/25: flat affect, report mild depression and anxiety. Denies side effects. Denies safety concerns. Selt report slept only an hour last night. Back pain 5/1o but declines Tylenol. 01/08/25: No changes. Compliant with medication. No behavior. Isolated herself in room. Attempted to no groups, minimum peers and staff interaction. However pleasant upon approach Patient educated on: medication risk/benefits and therapeutic strategies Informed Consent: further education needed Reason for continued inpatient stay Substantial Risk for: med/psych decompensation Time Spent With Patient Time: Total time managing care of this patient today ____ minutes.
[2025-01-08 20:00] VITALS: BP 132/68; PULSE 85; RESP 16; TEMP 36.2; O2SAT 96
[2025-01-09 09:06] VITALS: BP 111/72; PULSE 105; RESP 16; TEMP 36.3; O2SAT 95
[2025-01-09] MEDS: ARIPiprazole 30 MG TABLET PO (09:10)
--- NOTE | 2025-01-09 10:45 | P.PNPSI_ITS ---
Subjective Subjective Date of Service: 01/09/25 Reason For Visit: bipolar 1 disorder current or most recent epi Subjective Notes: Conditional Voluntary Healthcare Proxy: Yes Interim History: Pt slept through the night. She denies any concerns. She also denies physical concerns. No SI/HI. She is taking medications as prescribed. VS stable. Review of Systems Review of Systems Negative except for what is noted in the HPI Yes all other systems are reviewed and are negative Mental Status Exam Mental Status Exam Narrative: Appearance: adequately dressed, poor self care, in bed Psychomotor: some retardation, isolated in room Speech: mostly clear, slow to respond. TP: [place] TC: [place] Mood: good Affect: Flat SI: Denies HI: Denies VH/AH: Denies Delusions: no overt delusional content noted or reported Insight/judgment: impaired/poor Memory/cog: alert, oriented x 3. Diagnostics Vital Signs (24Hr): Vital Signs - 24 hr 01/08/25 20:00 01/09/25 09:06 Temperature 97.2 F 97.3 F Pulse Rate 85 105 H Respiratory Rate 16 16 Blood Pressure 132/68 111/72 Pulse Oximetry 96 95 Oxygen Delivery Method Room Air Room Air BMI result Body Mass Index 23.5 Labs 01/03/25 07:32 01/03/25 07:32 Imaging Radiology Impressions: ITS Impressions Head CT 08/25/24 11:33 IMPRESSION: No acute intracranial abnormality. Electronically signed by: Cj Colunga MD 08/25/2024 12:12 PM EST RP KUB X-Ray 10/28/24 09:50 IMPRESSION: Abundant stool without intestinal obstruction pattern. Electronically signed by: Audie Uribe MD 10/28/2024 10:02 AM EDT RP Medications Medications Current Medications Acetaminophen (Acetaminophen 325 Mg Tablet) 325 mg PO Q6H PRN PRN Reason: Pain, Mild (Pain Scale 1-3) Aripiprazole (Aripiprazole 30 Mg Tablet) 30 mg PO DAILY [facility] Last Admin: 01/09/25 09:10 Dose: 30 mg Benzocaine (Throat Lozenge, Medicated Lozenge) 1 lozenge MUCOUS MEM Q1H PRN PRN Reason: Sore Throat Last Admin: 09/01/24 06:09 Dose: 1 lozenge Guaifenesin/Dextromethorphan (Guaifenesin Dm 200/20/10 Ml 10 Ml Syrup) 10 ml PO Q4H PRN PRN Reason: Cough Last Admin: 08/30/24 05:47 Dose: 10 ml Levothyroxine Sodium (Levothyroxine Sodium 50 Mcg Tablet) 50 mcg PO DAILY@0600 REPLACED BY [facility] Last Admin: 01/09/25 05:25 Dose: 50 mcg Lidocaine/Diphenhydr/Alum/Mg/Simeth (Mag&Al/Sim/Diphenhyd/Lidocaine 10 Ml Oral.Susp) 10 ml PO Q6H PRN; Protocol PRN Reason: Painful Gums Last Admin: 08/26/24 13:38 Dose: 10 ml Memantine (Memantine Hcl 5 Mg Tablet) 5 mg PO BID REPLACED BY [facility] Last Admin: 01/09/25 09:10 Dose: 5 mg Olanzapine (Olanzapine Odt 10 Mg Tab.Rapdis) 5 mg TRANSLINGU Q6H PRN PRN Reason: Agitation Last Admin: 01/03/25 08:40 Dose: 5 mg Polyethylene Glycol (Polyethylene Glycol 3350 17 Gm Powd.Pack) 17 gm PO DAILY PRN PRN Reason: constipation Senna/Docusate Sodium (Sennosides/Docusate Sodium Tablet) 1 tab PO BID REPLACED BY [facility] Last Admin: 01/09/25 09:10 Dose: 1 tab Vitamin D (Cholecalciferol (Vitamin D3) 25 Mcg Tablet) 50 mcg PO DAILY REPLACED BY [facility] Last Admin: 01/09/25 09:10 Dose: 50 mcg Allergies Allergies Allergy/AdvReac Type Severity Reaction Status Date / Time meperidine (From Demerol) AdvReac Intermediate Rash Verified 08/23/24 19:34 morphine AdvReac Intermediate Rash Verified 08/23/24 19:35 Sulfa (Sulfonamide AdvReac Intermediate Rash Verified 08/23/24 19:36 Antibiotics) Assessment & Plan Assessment & Plan (1) Schizoaffective disorder: Status: Acute Code(s): F25.9 - Schizoaffective disorder, unspecified Plan Plan stable. continue current mgmt. awaiting placement. 12/10/24- no change CTP 12/11/24- patient flat but responsive- CTP 12/12: no change, continue current mgmt. 12/13: no change, denies any Sx or concerns. appears to be growing weaker due to spending so much time in bed, per OT; pt was encouraged by OT to be up and about more. 12/14: no change. continue current mgmt. 12/15 continue tx . 12/16 continue tx. 12/17: Continue current regimen and plans 12/18: Continue current regimen and plans 12/19: stable. continue current mgmt. 12/20: no change in presentation. continue current mgmt. 12/21: continues as per prior. awaiting placement. 12/22: continues as per prior. awaiting placement. 12/23 continue tx 12/24 continue tx. 12/25 ordered urologist consult for incontinence 12/27 continue tx. awaiting placement. 12/28/24: Put treatment team, patient is awaiting for placement, isolated in room, out for meals but not attended to groups today. Flat affect, mild depressed, no side effects. Continue to encourage groups and out more on the unit for activities. Patient has not seen by urologist for incontinence. 12/30/2024: No change 12/31: no changes 01/01: no changes 01/02 pt stable, awaiting placement. WIll order routine labs including cbc, cmp, TSH, 01/03 cbc unremarkable and improved, no longer showing anemia. CMP with no electrolyte imbalances. However, TSH low 0.07 on levothyroxine, hospitalist consult ordered (dose of levothyrozine adjusted). 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 01/04 continue tx. 01/05 continue tx. 01/06 continue tx. 01/07/25: flat affect, report mild depression and anxiety. Denies side effects. Denies safety concerns. Selt report slept only an hour last night. Back pain 10/27o but declines Tylenol. 01/08/25: No changes. Compliant with medication. No behavior. Isolated herself in room. Attempted to no groups, minimum peers and staff interaction. However pleasant upon approach 01/09 continue tx. Reason for continued inpatient stay Substantial Risk for: inability to function Time Spent With Patient Time: Total time managing care of this patient today ____ minutes.
[2025-01-09 20:00] VITALS: BP 125/56; PULSE 80; RESP 16; TEMP 36.6; O2SAT 94
[2025-01-10 08:00] VITALS: BP 124/60; PULSE 79; RESP 18; TEMP 36.6; O2SAT 95
[2025-01-10] MEDS: ARIPiprazole 30 MG TABLET PO (08:30)
--- NOTE | 2025-01-10 16:05 | HO.PSYCHPN ---
Subjective Subjective Date of Service: 01/10/25 Reason For Visit: bipolar 1 disorder current or most recent epi Subjective Notes: Conditional Voluntary Healthcare Proxy: Yes Interim History: Pt sleeping through the night. No behavioral concerns. She denies any bursning sensation. No overt psychosis or delusions. taking medications as prescribed. Review of Systems Review of Systems Negative except for what is noted in the HPI Yes all other systems are reviewed and are negative Mental Status Exam Mental Status Exam Narrative: Appearance: adequately dressed, poor self care, in bed Psychomotor: some retardation, isolated in room Speech: mostly clear, slow to respond. TP: [place] TC: WNL Mood: good Affect: Flat SI: Denies HI: Denies VH/AH: Denies Delusions: no overt delusional content noted or reported Insight/judgment: impaired/poor Memory/cog: alert, oriented x 3. Diagnostics Vital Signs (24Hr): Vital Signs - 24 hr 01/09/25 20:00 01/10/25 08:00 Temperature 97.9 F 97.9 F Pulse Rate 80 79 Respiratory Rate 16 18 Blood Pressure 125/56 L 124/60 Pulse Oximetry 94 95 Oxygen Delivery Method Room Air Room Air BMI result Body Mass Index 23.5 Labs 01/03/25 07:32 01/03/25 07:32 Imaging Radiology Impressions: ITS Impressions Head CT 08/25/24 11:33 IMPRESSION: No acute intracranial abnormality. Electronically signed by: Cj Colunga MD 08/25/2024 12:12 PM EST RP KUB X-Ray 10/28/24 09:50 IMPRESSION: Abundant stool without intestinal obstruction pattern. Electronically signed by: Audie Uribe MD 10/28/2024 10:02 AM EDT RP Medications Medications Current Medications Acetaminophen (Acetaminophen 325 Mg Tablet) 325 mg PO Q6H PRN PRN Reason: Pain, Mild (Pain Scale 1-3) Aripiprazole (Aripiprazole 30 Mg Tablet) 30 mg PO DAILY [facility] Last Admin: 01/10/25 08:30 Dose: 30 mg Benzocaine (Throat Lozenge, Medicated Lozenge) 1 lozenge MUCOUS MEM Q1H PRN PRN Reason: Sore Throat Last Admin: 09/01/24 06:09 Dose: 1 lozenge Guaifenesin/Dextromethorphan (Guaifenesin Dm 200/20/10 Ml 10 Ml Syrup) 10 ml PO Q4H PRN PRN Reason: Cough Last Admin: 08/30/24 05:47 Dose: 10 ml Levothyroxine Sodium (Levothyroxine Sodium 50 Mcg Tablet) 50 mcg PO DAILY@0600 [facility] Last Admin: 01/10/25 06:15 Dose: 50 mcg Lidocaine/Diphenhydr/Alum/Mg/Simeth (Mag&Al/Sim/Diphenhyd/Lidocaine 10 Ml Oral.Susp) 10 ml PO Q6H PRN; Protocol PRN Reason: Painful Gums Last Admin: 08/26/24 13:38 Dose: 10 ml Memantine (Memantine Hcl 5 Mg Tablet) 5 mg PO BID [facility] Last Admin: 01/10/25 08:30 Dose: 5 mg Olanzapine (Olanzapine Odt 10 Mg Tab.Rapdis) 5 mg TRANSLINGU Q6H PRN PRN Reason: Agitation Last Admin: 01/03/25 08:40 Dose: 5 mg Polyethylene Glycol (Polyethylene Glycol 3350 17 Gm Powd.Pack) 17 gm PO DAILY PRN PRN Reason: constipation Senna/Docusate Sodium (Sennosides/Docusate Sodium Tablet) 1 tab PO BID [facility] Last Admin: 01/10/25 08:30 Dose: 1 tab Vitamin D (Cholecalciferol (Vitamin D3) 25 Mcg Tablet) 50 mcg PO DAILY [facility] Last Admin: 01/10/25 08:30 Dose: 50 mcg Allergies Allergies Allergy/AdvReac Type Severity Reaction Status Date / Time meperidine (From Demerol) AdvReac Intermediate Rash Verified 08/23/24 19:34 morphine AdvReac Intermediate Rash Verified 08/23/24 19:35 Sulfa (Sulfonamide AdvReac Intermediate Rash Verified 08/23/24 19:36 Antibiotics) Assessment & Plan Assessment & Plan (1) Schizoaffective disorder: Status: Acute Code(s): F25.9 - Schizoaffective disorder, unspecified Plan Plan stable. continue current mgmt. awaiting placement. 12/10/24- no change CTP 12/11/24- patient flat but responsive- CTP 12/12: no change, continue current mgmt. 12/13: no change, denies any Sx or concerns. appears to be growing weaker due to spending so much time in bed, per OT; pt was encouraged by OT to be up and about more. 12/14: no change. continue current mgmt. 12/15 continue tx . 12/16 continue tx. 12/17: Continue current regimen and plans 12/18: Continue current regimen and plans 12/19: stable. continue current mgmt. 12/20: no change in presentation. continue current mgmt. 12/21: continues as per prior. awaiting placement. 12/22: continues as per prior. awaiting placement. 12/23 continue tx 12/24 continue tx. 12/25 ordered urologist consult for incontinence 12/27 continue tx. awaiting placement. 12/28/24: Put treatment team, patient is awaiting for placement, isolated in room, out for meals but not attended to groups today. Flat affect, mild depressed, no side effects. Continue to encourage groups and out more on the unit for activities. Patient has not seen by urologist for incontinence. 12/30/2024: No change 12/31: no changes 01/01: no changes 01/02 pt stable, awaiting placement. WIll order routine labs including cbc, cmp, TSH, 01/03 cbc unremarkable and improved, no longer showing anemia. CMP with no electrolyte imbalances. However, TSH low 0.07 on levothyroxine, hospitalist consult ordered (dose of levothyrozine adjusted). 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 01/04 continue tx. 01/05 continue tx. 01/06 continue tx. 01/07/25: flat affect, report mild depression and anxiety. Denies side effects. Denies safety concerns. Selt report slept only an hour last night. Back pain 10/27o but declines Tylenol. 01/08/25: No changes. Compliant with medication. No behavior. Isolated herself in room. Attempted to no groups, minimum peers and staff interaction. However pleasant upon approach 01/09 continue tx. 01/10 continue tx. Reason for continued inpatient stay Substantial Risk for: inability to function Time Spent With Patient Time: Total time managing care of this patient today ____ minutes.
[2025-01-10 20:11] VITALS: BP 113/59; PULSE 84; RESP 16; TEMP 36.9; O2SAT 97
[2025-01-11 07:50] VITALS: BP 144/70; PULSE 72; RESP 18; TEMP 36.4; O2SAT 98
[2025-01-11] MEDS: ARIPiprazole 30 MG TABLET PO (08:44)
--- NOTE | 2025-01-11 16:21 | P.PNPSI_ITS ---
Subjective Subjective Date of Service: 01/11/25 Reason For Visit: bipolar 1 disorder current or most recent epi Subjective Notes: Conditional Voluntary Healthcare Proxy: Yes Interim History: Pt sleeping through the night. No behavioral concerns. She denies any burning sensation. encouraged to go to groups but declined. No overt psychosis or delusions. taking medications as prescribed. Review of Systems Review of Systems Negative except for what is noted in the HPI Yes all other systems are reviewed and are negative Mental Status Exam Mental Status Exam Narrative: Appearance: adequately dressed, poor self care, in bed Psychomotor: some retardation, isolated in room Speech: mostly clear, slow to respond. TP: [place] TC: WNL Mood: good Affect: Flat SI: Denies HI: Denies VH/AH: Denies Delusions: no overt delusional content noted or reported Insight/judgment: impaired/poor Memory/cog: alert, oriented x 3. Diagnostics Vital Signs (24Hr): Vital Signs - 24 hr 01/10/25 20:11 01/11/25 07:50 Temperature 98.4 F 97.5 F Pulse Rate 84 72 Respiratory Rate 16 18 Blood Pressure 113/59 L 144/70 H Pulse Oximetry 97 98 Oxygen Delivery Method Room Air Room Air BMI result Body Mass Index 23.5 Labs 01/03/25 07:32 01/03/25 07:32 Imaging Radiology Impressions: ITS Impressions Head CT 08/25/24 11:33 IMPRESSION: No acute intracranial abnormality. Electronically signed by: Cj Colunga MD 08/25/2024 12:12 PM EST RP KUB X-Ray 10/28/24 09:50 IMPRESSION: Abundant stool without intestinal obstruction pattern. Electronically signed by: Audie Uribe MD 10/28/2024 10:02 AM EDT RP Medications Medications Current Medications Acetaminophen (Acetaminophen 325 Mg Tablet) 325 mg PO Q6H PRN PRN Reason: Pain, Mild (Pain Scale 1-3) Aripiprazole (Aripiprazole 30 Mg Tablet) 30 mg PO DAILY [facility] Last Admin: 01/11/25 08:44 Dose: 30 mg Benzocaine (Throat Lozenge, Medicated Lozenge) 1 lozenge MUCOUS MEM Q1H PRN PRN Reason: Sore Throat Last Admin: 09/01/24 06:09 Dose: 1 lozenge Guaifenesin/Dextromethorphan (Guaifenesin Dm 200/20/10 Ml 10 Ml Syrup) 10 ml PO Q4H PRN PRN Reason: Cough Last Admin: 08/30/24 05:47 Dose: 10 ml Levothyroxine Sodium (Levothyroxine Sodium 50 Mcg Tablet) 50 mcg PO DAILY@0600 [facility] Last Admin: 01/11/25 05:36 Dose: 50 mcg Lidocaine/Diphenhydr/Alum/Mg/Simeth (Mag&Al/Sim/Diphenhyd/Lidocaine 10 Ml Oral.Susp) 10 ml PO Q6H PRN; Protocol PRN Reason: Painful Gums Last Admin: 08/26/24 13:38 Dose: 10 ml Memantine (Memantine Hcl 5 Mg Tablet) 5 mg PO BID [facility] Last Admin: 01/11/25 08:44 Dose: 5 mg Olanzapine (Olanzapine Odt 10 Mg Tab.Rapdis) 5 mg TRANSLINGU Q6H PRN PRN Reason: Agitation Last Admin: 01/03/25 08:40 Dose: 5 mg Polyethylene Glycol (Polyethylene Glycol 3350 17 Gm Powd.Pack) 17 gm PO DAILY PRN PRN Reason: constipation Senna/Docusate Sodium (Sennosides/Docusate Sodium Tablet) 1 tab PO BID [facility] Last Admin: 01/11/25 08:44 Dose: 1 tab Vitamin D (Cholecalciferol (Vitamin D3) 25 Mcg Tablet) 50 mcg PO DAILY [facility] Last Admin: 01/11/25 08:44 Dose: 50 mcg Allergies Allergies Allergy/AdvReac Type Severity Reaction Status Date / Time meperidine (From Demerol) AdvReac Intermediate Rash Verified 08/23/24 19:34 morphine AdvReac Intermediate Rash Verified 08/23/24 19:35 Sulfa (Sulfonamide AdvReac Intermediate Rash Verified 08/23/24 19:36 Antibiotics) Assessment & Plan Assessment & Plan (1) Schizoaffective disorder: Status: Acute Code(s): F25.9 - Schizoaffective disorder, unspecified Plan Plan stable. continue current mgmt. awaiting placement. 12/10/24- no change CTP 12/11/24- patient flat but responsive- CTP 12/12: no change, continue current mgmt. 12/13: no change, denies any Sx or concerns. appears to be growing weaker due to spending so much time in bed, per OT; pt was encouraged by OT to be up and about more. 12/14: no change. continue current mgmt. 12/15 continue tx . 12/16 continue tx. 12/17: Continue current regimen and plans 12/18: Continue current regimen and plans 12/19: stable. continue current mgmt. 12/20: no change in presentation. continue current mgmt. 12/21: continues as per prior. awaiting placement. 12/22: continues as per prior. awaiting placement. 12/23 continue tx 12/24 continue tx. 12/25 ordered urologist consult for incontinence 12/27 continue tx. awaiting placement. 12/28/24: Put treatment team, patient is awaiting for placement, isolated in room, out for meals but not attended to groups today. Flat affect, mild depressed, no side effects. Continue to encourage groups and out more on the unit for activities. Patient has not seen by urologist for incontinence. 12/30/2024: No change 12/31: no changes 01/01: no changes 01/02 pt stable, awaiting placement. WIll order routine labs including cbc, cmp, TSH, 01/03 cbc unremarkable and improved, no longer showing anemia. CMP with no electrolyte imbalances. However, TSH low 0.07 on levothyroxine, hospitalist consult ordered (dose of levothyrozine adjusted). 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 01/04 continue tx. 01/05 continue tx. 01/06 continue tx. 01/07/25: flat affect, report mild depression and anxiety. Denies side effects. Denies safety concerns. Selt report slept only an hour last night. Back pain 10/27o but declines Tylenol. 01/08/25: No changes. Compliant with medication. No behavior. Isolated herself in room. Attempted to no groups, minimum peers and staff interaction. However pleasant upon approach 01/09 continue tx. 01/10 continue tx. 01/11 continue tx. Reason for continued inpatient stay Substantial Risk for: inability to function Time Spent With Patient Time: Total time managing care of this patient today ____ minutes.
[2025-01-11 20:00] VITALS: BP 121/53; PULSE 70; RESP 16; TEMP 36.6; O2SAT 96
[2025-01-12 06:59] VITALS: BMI 23.2
[2025-01-12 07:57] VITALS: BP 136/65; PULSE 86; RESP 18; TEMP 36.8; O2SAT 97
[2025-01-12] MEDS: ARIPiprazole 30 MG TABLET PO (08:23)
--- NOTE | 2025-01-12 15:25 | HO.PSYCHPN ---
Subjective Subjective Date of Service: 01/12/25 Reason For Visit: bipolar 1 disorder current or most recent epi Subjective Notes: Conditional Voluntary Interim History: Pt sleeping well. VS stable. She is in mostly in bed, visible for meals. incontinent of urine, at times does not let staff know that needs to be changed unless prompted by staff. declined going to groups. Medication Compliance: Yes Review of Systems Review of Systems Negative except for what is noted in the HPI Yes all other systems are reviewed and are negative Mental Status Exam Mental Status Exam Narrative: Appearance: adequately dressed, poor self care, in bed Psychomotor: some retardation, isolated in room Speech: mostly clear, slow to respond. TP: [place] TC: WNL Mood: good Affect: Flat SI: Denies HI: Denies VH/AH: Denies Delusions: no overt delusional content noted or reported Insight/judgment: impaired/poor Memory/cog: alert, oriented x 3. Diagnostics Vital Signs (24Hr): Vital Signs - 24 hr 01/11/25 20:00 01/12/25 07:57 Temperature 97.9 F 98.2 F Pulse Rate 70 86 Respiratory Rate 16 18 Blood Pressure 121/53 L 136/65 Pulse Oximetry 96 97 Oxygen Delivery Method Room Air Room Air BMI result Body Mass Index 23.2 Labs 01/03/25 07:32 01/03/25 07:32 Imaging Radiology Impressions: ITS Impressions Head CT 08/25/24 11:33 IMPRESSION: No acute intracranial abnormality. Electronically signed by: Cj Colunga MD 08/25/2024 12:12 PM EST RP KUB X-Ray 10/28/24 09:50 IMPRESSION: Abundant stool without intestinal obstruction pattern. Electronically signed by: Audie Uribe MD 10/28/2024 10:02 AM EDT RP Medications Medications Current Medications Acetaminophen (Acetaminophen 325 Mg Tablet) 325 mg PO Q6H PRN PRN Reason: Pain, Mild (Pain Scale 1-3) Aripiprazole (Aripiprazole 30 Mg Tablet) 30 mg PO DAILY [facility] Last Admin: 01/12/25 08:23 Dose: 30 mg Benzocaine (Throat Lozenge, Medicated Lozenge) 1 lozenge MUCOUS MEM Q1H PRN PRN Reason: Sore Throat Last Admin: 09/01/24 06:09 Dose: 1 lozenge Guaifenesin/Dextromethorphan (Guaifenesin Dm 200/20/10 Ml 10 Ml Syrup) 10 ml PO Q4H PRN PRN Reason: Cough Last Admin: 08/30/24 05:47 Dose: 10 ml Levothyroxine Sodium (Levothyroxine Sodium 50 Mcg Tablet) 50 mcg PO DAILY@0600 [facility] Last Admin: 01/12/25 05:49 Dose: 50 mcg Lidocaine/Diphenhydr/Alum/Mg/Simeth (Mag&Al/Sim/Diphenhyd/Lidocaine 10 Ml Oral.Susp) 10 ml PO Q6H PRN; Protocol PRN Reason: Painful Gums Last Admin: 08/26/24 13:38 Dose: 10 ml Memantine (Memantine Hcl 5 Mg Tablet) 5 mg PO BID [facility] Last Admin: 01/12/25 08:23 Dose: 5 mg Olanzapine (Olanzapine Odt 10 Mg Tab.Rapdis) 5 mg TRANSLINGU Q6H PRN PRN Reason: Agitation Last Admin: 01/03/25 08:40 Dose: 5 mg Polyethylene Glycol (Polyethylene Glycol 3350 17 Gm Powd.Pack) 17 gm PO DAILY PRN PRN Reason: constipation Senna/Docusate Sodium (Sennosides/Docusate Sodium Tablet) 1 tab PO BID [facility] Last Admin: 01/12/25 08:23 Dose: 1 tab Vitamin D (Cholecalciferol (Vitamin D3) 25 Mcg Tablet) 50 mcg PO DAILY [facility] Last Admin: 01/12/25 08:23 Dose: 50 mcg Allergies Allergies Allergy/AdvReac Type Severity Reaction Status Date / Time meperidine (From Demerol) AdvReac Intermediate Rash Verified 08/23/24 19:34 morphine AdvReac Intermediate Rash Verified 08/23/24 19:35 Sulfa (Sulfonamide AdvReac Intermediate Rash Verified 08/23/24 19:36 Antibiotics) Assessment & Plan Assessment & Plan (1) Schizoaffective disorder: Status: Acute Code(s): F25.9 - Schizoaffective disorder, unspecified Plan Plan stable. continue current mgmt. awaiting placement. 12/10/24- no change CTP 12/11/24- patient flat but responsive- CTP 12/12: no change, continue current mgmt. 12/13: no change, denies any Sx or concerns. appears to be growing weaker due to spending so much time in bed, per OT; pt was encouraged by OT to be up and about more. 12/14: no change. continue current mgmt. 12/15 continue tx . 12/16 continue tx. 12/17: Continue current regimen and plans 12/18: Continue current regimen and plans 12/19: stable. continue current mgmt. 12/20: no change in presentation. continue current mgmt. 12/21: continues as per prior. awaiting placement. 12/22: continues as per prior. awaiting placement. 12/23 continue tx 12/24 continue tx. 12/25 ordered urologist consult for incontinence 12/27 continue tx. awaiting placement. 12/28/24: Put treatment team, patient is awaiting for placement, isolated in room, out for meals but not attended to groups today. Flat affect, mild depressed, no side effects. Continue to encourage groups and out more on the unit for activities. Patient has not seen by urologist for incontinence. 12/30/2024: No change 12/31: no changes 01/01: no changes 01/02 pt stable, awaiting placement. WIll order routine labs including cbc, cmp, TSH, 01/03 cbc unremarkable and improved, no longer showing anemia. CMP with no electrolyte imbalances. However, TSH low 0.07 on levothyroxine, hospitalist consult ordered (dose of levothyrozine adjusted). 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 01/04 continue tx. 01/05 continue tx. 01/06 continue tx. 01/07/25: flat affect, report mild depression and anxiety. Denies side effects. Denies safety concerns. Selt report slept only an hour last night. Back pain 5/1o but declines Tylenol. 01/08/25: No changes. Compliant with medication. No behavior. Isolated herself in room. Attempted to no groups, minimum peers and staff interaction. However pleasant upon approach 01/09 continue tx. 01/10 continue tx. 01/11 continue tx. 01/12 continue tx. Reason for continued inpatient stay Substantial Risk for: inability to function Time Spent With Patient Time: Total time managing care of this patient today ____ minutes.
[2025-01-12 20:00] VITALS: BP 124/58; PULSE 71; RESP 18; TEMP 36.8; O2SAT 96
[2025-01-13 07:48] VITALS: BP 145/100; PULSE 85; RESP 16; TEMP 36.3; O2SAT 99
[2025-01-13] MEDS: ARIPiprazole 30 MG TABLET PO (07:49)
--- NOTE | 2025-01-13 14:18 | HO.PSYCHPN ---
Subjective Subjective Date of Service: 01/13/25 Reason For Visit: bipolar 1 disorder current or most recent epi Subjective Notes: Conditional Voluntary Guardianship: Yes Interim History: Pt sleeping well. VS stable. She is in mostly in bed, visible for meals. incontinent of urine, at times does not let staff know that needs to be changed unless prompted by staff. declined going to groups. Review of Systems Review of Systems Negative except for what is noted in the HPI Yes all other systems are reviewed and are negative Mental Status Exam Mental Status Exam Narrative: Appearance: adequately dressed, poor self care, in bed Psychomotor: some retardation, isolated in room Speech: mostly clear, slow to respond. TP: [place] TC: WNL Mood: good Affect: Flat SI: Denies HI: Denies VH/AH: Denies Delusions: no overt delusional content noted or reported Insight/judgment: impaired/poor Memory/cog: alert, oriented x 3. Diagnostics Vital Signs (24Hr): Vital Signs - 24 hr 01/12/25 20:00 01/13/25 07:48 Temperature 98.2 F 97.4 F Pulse Rate 71 85 Respiratory Rate 18 16 Blood Pressure 124/58 L 145/100 H Pulse Oximetry 96 99 Oxygen Delivery Method Room Air Room Air BMI result Body Mass Index 23.2 Labs 01/03/25 07:32 01/03/25 07:32 Imaging Radiology Impressions: ITS Impressions Head CT 08/25/24 11:33 IMPRESSION: No acute intracranial abnormality. Electronically signed by: Cj Colunga MD 08/25/2024 12:12 PM EST RP KUB X-Ray 10/28/24 09:50 IMPRESSION: Abundant stool without intestinal obstruction pattern. Electronically signed by: Audie Uribe MD 10/28/2024 10:02 AM EDT RP Medications Medications Current Medications Acetaminophen (Acetaminophen 325 Mg Tablet) 325 mg PO Q6H PRN PRN Reason: Pain, Mild (Pain Scale 1-3) Aripiprazole (Aripiprazole 30 Mg Tablet) 30 mg PO DAILY [facility] Last Admin: 01/13/25 07:49 Dose: 30 mg Benzocaine (Throat Lozenge, Medicated Lozenge) 1 lozenge MUCOUS MEM Q1H PRN PRN Reason: Sore Throat Last Admin: 09/01/24 06:09 Dose: 1 lozenge Guaifenesin/Dextromethorphan (Guaifenesin Dm 200/20/10 Ml 10 Ml Syrup) 10 ml PO Q4H PRN PRN Reason: Cough Last Admin: 08/30/24 05:47 Dose: 10 ml Levothyroxine Sodium (Levothyroxine Sodium 50 Mcg Tablet) 50 mcg PO DAILY@0600 [facility] Last Admin: 01/13/25 06:00 Dose: 50 mcg Lidocaine/Diphenhydr/Alum/Mg/Simeth (Mag&Al/Sim/Diphenhyd/Lidocaine 10 Ml Oral.Susp) 10 ml PO Q6H PRN; Protocol PRN Reason: Painful Gums Last Admin: 08/26/24 13:38 Dose: 10 ml Memantine (Memantine Hcl 5 Mg Tablet) 5 mg PO BID [facility] Last Admin: 01/13/25 07:50 Dose: 5 mg Olanzapine (Olanzapine Odt 10 Mg Tab.Rapdis) 5 mg TRANSLINGU Q6H PRN PRN Reason: Agitation Last Admin: 01/03/25 08:40 Dose: 5 mg Polyethylene Glycol (Polyethylene Glycol 3350 17 Gm Powd.Pack) 17 gm PO DAILY PRN PRN Reason: constipation Senna/Docusate Sodium (Sennosides/Docusate Sodium Tablet) 1 tab PO BID [facility] Last Admin: 01/13/25 07:49 Dose: 1 tab Vitamin D (Cholecalciferol (Vitamin D3) 25 Mcg Tablet) 50 mcg PO DAILY [facility] Last Admin: 01/13/25 07:49 Dose: 50 mcg Allergies Allergies Allergy/AdvReac Type Severity Reaction Status Date / Time meperidine (From Demerol) AdvReac Intermediate Rash Verified 08/23/24 19:34 morphine AdvReac Intermediate Rash Verified 08/23/24 19:35 Sulfa (Sulfonamide AdvReac Intermediate Rash Verified 08/23/24 19:36 Antibiotics) Assessment & Plan Assessment & Plan (1) Schizoaffective disorder: Status: Acute Code(s): F25.9 - Schizoaffective disorder, unspecified Plan Plan stable. continue current mgmt. awaiting placement. 12/10/24- no change CTP 12/11/24- patient flat but responsive- CTP 12/12: no change, continue current mgmt. 12/13: no change, denies any Sx or concerns. appears to be growing weaker due to spending so much time in bed, per OT; pt was encouraged by OT to be up and about more. 12/14: no change. continue current mgmt. 12/15 continue tx . 12/16 continue tx. 12/17: Continue current regimen and plans 12/18: Continue current regimen and plans 12/19: stable. continue current mgmt. 12/20: no change in presentation. continue current mgmt. 12/21: continues as per prior. awaiting placement. 12/22: continues as per prior. awaiting placement. 12/23 continue tx 12/24 continue tx. 12/25 ordered urologist consult for incontinence 12/27 continue tx. awaiting placement. 12/28/24: Put treatment team, patient is awaiting for placement, isolated in room, out for meals but not attended to groups today. Flat affect, mild depressed, no side effects. Continue to encourage groups and out more on the unit for activities. Patient has not seen by urologist for incontinence. 12/30/2024: No change 12/31: no changes 01/01: no changes 01/02 pt stable, awaiting placement. WIll order routine labs including cbc, cmp, TSH, 01/03 cbc unremarkable and improved, no longer showing anemia. CMP with no electrolyte imbalances. However, TSH low 0.07 on levothyroxine, hospitalist consult ordered (dose of levothyrozine adjusted). 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 01/04 continue tx. 01/05 continue tx. 01/06 continue tx. 01/07/25: flat affect, report mild depression and anxiety. Denies side effects. Denies safety concerns. Selt report slept only an hour last night. Back pain 5/1o but declines Tylenol. 01/08/25: No changes. Compliant with medication. No behavior. Isolated herself in room. Attempted to no groups, minimum peers and staff interaction. However pleasant upon approach 01/09 continue tx. 01/10 continue tx. 01/11 continue tx. 01/12 continue tx. 01/13 continue tx. Reason for continued inpatient stay Substantial Risk for: inability to function Time Spent With Patient Time: Total time managing care of this patient today ____ minutes.
[2025-01-13 20:00] VITALS: BP 124/58; PULSE 67; RESP 16; TEMP 36.6; O2SAT 98
[2025-01-14 07:55] VITALS: BP 138/66; PULSE 80; RESP 18; TEMP 36.6; O2SAT 98
[2025-01-14] MEDS: ARIPiprazole 30 MG TABLET PO (08:24)
--- NOTE | 2025-01-14 18:39 | HO.PSYCHPN ---
Subjective Subjective Date of Service: 01/14/25 Reason For Visit: bipolar 1 disorder current or most recent epi Interim History: Patient seen in her room. She was laying on the bed calmly. Dehydrogenation Converter Operator did observe her ambulating on the unit appropriately earlier today. She was able to attend to a brief encounter. She denied SI/HI/AVH. She denied having any concerns about her care at this time. Medication Compliance: Yes Side effects from medications: No Review of Systems Acute medical concerns: No Medical Review of Systems: unchanged Mental Status Exam Mental Status Exam Narrative: Appearance: hospital attire, adequate grooming and hygiene Behavior: passively cooperative with encounter Orientation: alert, generally oriented to person, place, time Memory: grossly intact to recent events Attention: able to attend to a brief encounter Psychomotor Function: no agitation or slowing; no abnormal gestures or movements Speech: paucity of speech Mood: okay Affect: diminished range Thought Process: linear Thought Content: denies SI/HI Hallucinations: denies AVH delusions: none evinced Insight: mild impairment Judgment: mild impairment Impulsivity: none noted Diagnostics Vital Signs (24Hr): Vital Signs - 24 hr 01/13/25 20:00 01/14/25 07:55 Temperature 97.9 F 97.9 F Pulse Rate 67 80 Respiratory Rate 16 18 Blood Pressure 124/58 L 138/66 Pulse Oximetry 98 98 Oxygen Delivery Method Room Air Room Air BMI result Body Mass Index 23.2 Labs 01/03/25 07:32 01/03/25 07:32 Imaging Radiology Impressions: ITS Impressions Head CT 08/25/24 11:33 IMPRESSION: No acute intracranial abnormality. Electronically signed by: Cj Colunga MD 08/25/2024 12:12 PM EST RP KUB X-Ray 10/28/24 09:50 IMPRESSION: Abundant stool without intestinal obstruction pattern. Electronically signed by: Audie Uribe MD 10/28/2024 10:02 AM EDT RP Medications Medications Current Medications Acetaminophen (Acetaminophen 325 Mg Tablet) 325 mg PO Q6H PRN PRN Reason: Pain, Mild (Pain Scale 1-3) Aripiprazole (Aripiprazole 30 Mg Tablet) 30 mg PO DAILY [facility] Last Admin: 01/14/25 08:24 Dose: 30 mg Benzocaine (Throat Lozenge, Medicated Lozenge) 1 lozenge MUCOUS MEM Q1H PRN PRN Reason: Sore Throat Last Admin: 09/01/24 06:09 Dose: 1 lozenge Guaifenesin/Dextromethorphan (Guaifenesin Dm 200/20/10 Ml 10 Ml Syrup) 10 ml PO Q4H PRN PRN Reason: Cough Last Admin: 08/30/24 05:47 Dose: 10 ml Levothyroxine Sodium (Levothyroxine Sodium 50 Mcg Tablet) 50 mcg PO DAILY@0600 [facility] Last Admin: 01/14/25 05:53 Dose: 50 mcg Lidocaine/Diphenhydr/Alum/Mg/Simeth (Mag&Al/Sim/Diphenhyd/Lidocaine 10 Ml Oral.Susp) 10 ml PO Q6H PRN; Protocol PRN Reason: Painful Gums Last Admin: 08/26/24 13:38 Dose: 10 ml Memantine (Memantine Hcl 5 Mg Tablet) 5 mg PO BID [facility] Last Admin: 01/14/25 08:24 Dose: 5 mg Olanzapine (Olanzapine Odt 10 Mg Tab.Rapdis) 5 mg TRANSLINGU Q6H PRN PRN Reason: Agitation Last Admin: 01/03/25 08:40 Dose: 5 mg Polyethylene Glycol (Polyethylene Glycol 3350 17 Gm Powd.Pack) 17 gm PO DAILY PRN PRN Reason: constipation Senna/Docusate Sodium (Sennosides/Docusate Sodium Tablet) 1 tab PO BID [facility] Last Admin: 01/14/25 08:24 Dose: 1 tab Vitamin D (Cholecalciferol (Vitamin D3) 25 Mcg Tablet) 50 mcg PO DAILY [facility] Last Admin: 01/14/25 08:24 Dose: 50 mcg Allergies Allergies Allergy/AdvReac Type Severity Reaction Status Date / Time meperidine (From Demerol) AdvReac Intermediate Rash Verified 08/23/24 19:34 morphine AdvReac Intermediate Rash Verified 08/23/24 19:35 Sulfa (Sulfonamide AdvReac Intermediate Rash Verified 08/23/24 19:36 Antibiotics) Assessment & Plan Assessment & Plan (1) Schizoaffective disorder: Status: Acute Code(s): F25.9 - Schizoaffective disorder, unspecified Plan Plan stable. continue current mgmt. awaiting placement. 12/10/24- no change CTP 12/11/24- patient flat but responsive- CTP 12/12: no change, continue current mgmt. 12/13: no change, denies any Sx or concerns. appears to be growing weaker due to spending so much time in bed, per OT; pt was encouraged by OT to be up and about more. 12/14: no change. continue current mgmt. 12/15 continue tx . 12/16 continue tx. 12/17: Continue current regimen and plans 12/18: Continue current regimen and plans 12/19: stable. continue current mgmt. 12/20: no change in presentation. continue current mgmt. 12/21: continues as per prior. awaiting placement. 12/22: continues as per prior. awaiting placement. 12/23 continue tx 12/24 continue tx. 12/25 ordered urologist consult for incontinence 12/27 continue tx. awaiting placement. 12/28/24: Put treatment team, patient is awaiting for placement, isolated in room, out for meals but not attended to groups today. Flat affect, mild depressed, no side effects. Continue to encourage groups and out more on the unit for activities. Patient has not seen by urologist for incontinence. 12/30/2024: No change 12/31: no changes 01/01: no changes 01/02 pt stable, awaiting placement. WIll order routine labs including cbc, cmp, TSH, 01/03 cbc unremarkable and improved, no longer showing anemia. CMP with no electrolyte imbalances. However, TSH low 0.07 on levothyroxine, hospitalist consult ordered (dose of levothyrozine adjusted). 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 01/04 continue tx. 01/05 continue tx. 01/06 continue tx. 01/07/25: flat affect, report mild depression and anxiety. Denies side effects. Denies safety concerns. Selt report slept only an hour last night. Back pain 10/27o but declines Tylenol. 01/08/25: No changes. Compliant with medication. No behavior. Isolated herself in room. Attempted to no groups, minimum peers and staff interaction. However pleasant upon approach 01/09 continue tx. 01/10 continue tx. 01/11 continue tx. 01/12 continue tx. 01/13 continue tx. 01/14: no change today Informed Consent: understands Reason for continued inpatient stay Substantial Risk for: inability to function Time Spent With Patient Time: Total time managing care of this patient today ____ minutes.
[2025-01-14 20:00] VITALS: BP 116/58; PULSE 61; RESP 18; TEMP 36.4; O2SAT 97
[2025-01-15 08:00] VITALS: BP 132/58; PULSE 87; RESP 18; TEMP 36.6; O2SAT 97
[2025-01-15] MEDS: ARIPiprazole 30 MG TABLET PO (08:38)
--- NOTE | 2025-01-15 16:48 | HO.PSYCHPN ---
Subjective Subjective Date of Service: 01/15/25 Reason For Visit: bipolar 1 disorder current or most recent epi Interim History: Patient has been a bit more isolative today to her room. Die Trouble Shooter found her there lying on the bed. She was calm, similar presentation to yesterday with diminished range of affect. She said that she was feeling Nikolas, and when asked about activities today she stated not too much. She was able to relate details accurately about what she ate for breakfast and lunch today. She denied SI/HI/AVH, and denied having any concerns about her care at this time. Medication Compliance: Yes Side effects from medications: No Attending Groups: No Review of Systems Medical Review of Systems: unchanged Mental Status Exam Mental Status Exam Narrative: Appearance: hospital attire, adequate grooming and hygiene Behavior: passively cooperative Orientation: alert, grossly oriented to the encounter Memory: grossly intact to recent events today Attention: able to attend to a brief encounter Psychomotor Function: lying on bed Speech: paucity of speech Mood: okay Affect: diminished range Thought Process: linear Thought Content: denies SI/HI Hallucinations: denies AVH delusions: none evinced Insight: mild impairment Judgment: mild impairment Impulsivity: none noted Diagnostics Vital Signs (24Hr): Vital Signs - 24 hr 01/14/25 20:00 01/15/25 08:00 Temperature 97.5 F 97.9 F Pulse Rate 61 87 Respiratory Rate 18 18 Blood Pressure 116/58 L 132/58 L Pulse Oximetry 97 97 Oxygen Delivery Method Room Air Room Air BMI result Body Mass Index 23.2 Labs 01/03/25 07:32 01/03/25 07:32 Imaging Radiology Impressions: ITS Impressions Head CT 08/25/24 11:33 IMPRESSION: No acute intracranial abnormality. Electronically signed by: Cj Colunga MD 08/25/2024 12:12 PM EST RP KUB X-Ray 10/28/24 09:50 IMPRESSION: Abundant stool without intestinal obstruction pattern. Electronically signed by: Audie Uribe MD 10/28/2024 10:02 AM EDT RP Medications Medications Current Medications Acetaminophen (Acetaminophen 325 Mg Tablet) 325 mg PO Q6H PRN PRN Reason: Pain, Mild (Pain Scale 1-3) Aripiprazole (Aripiprazole 30 Mg Tablet) 30 mg PO DAILY [facility] Last Admin: 01/15/25 08:38 Dose: 30 mg Benzocaine (Throat Lozenge, Medicated Lozenge) 1 lozenge MUCOUS MEM Q1H PRN PRN Reason: Sore Throat Last Admin: 09/01/24 06:09 Dose: 1 lozenge Guaifenesin/Dextromethorphan (Guaifenesin Dm 200/20/10 Ml 10 Ml Syrup) 10 ml PO Q4H PRN PRN Reason: Cough Last Admin: 08/30/24 05:47 Dose: 10 ml Levothyroxine Sodium (Levothyroxine Sodium 50 Mcg Tablet) 50 mcg PO DAILY@0600 [facility] Last Admin: 01/15/25 05:38 Dose: 50 mcg Lidocaine/Diphenhydr/Alum/Mg/Simeth (Mag&Al/Sim/Diphenhyd/Lidocaine 10 Ml Oral.Susp) 10 ml PO Q6H PRN; Protocol PRN Reason: Painful Gums Last Admin: 08/26/24 13:38 Dose: 10 ml Memantine (Memantine Hcl 5 Mg Tablet) 5 mg PO BID [facility] Last Admin: 01/15/25 08:38 Dose: 5 mg Olanzapine (Olanzapine Odt 10 Mg Tab.Rapdis) 5 mg TRANSLINGU Q6H PRN PRN Reason: Agitation Last Admin: 01/03/25 08:40 Dose: 5 mg Polyethylene Glycol (Polyethylene Glycol 3350 17 Gm Powd.Pack) 17 gm PO DAILY PRN PRN Reason: constipation Senna/Docusate Sodium (Sennosides/Docusate Sodium Tablet) 1 tab PO BID [facility] Last Admin: 01/15/25 08:38 Dose: 1 tab Vitamin D (Cholecalciferol (Vitamin D3) 25 Mcg Tablet) 50 mcg PO DAILY [facility] Last Admin: 01/15/25 08:38 Dose: 50 mcg Allergies Allergies Allergy/AdvReac Type Severity Reaction Status Date / Time meperidine (From Demerol) AdvReac Intermediate Rash Verified 08/23/24 19:34 morphine AdvReac Intermediate Rash Verified 08/23/24 19:35 Sulfa (Sulfonamide AdvReac Intermediate Rash Verified 08/23/24 19:36 Antibiotics) Assessment & Plan Assessment & Plan (1) Schizoaffective disorder: Status: Acute Code(s): F25.9 - Schizoaffective disorder, unspecified Plan Plan stable. continue current mgmt. awaiting placement. 12/10/24- no change CTP 12/11/24- patient flat but responsive- CTP 12/12: no change, continue current mgmt. 12/13: no change, denies any Sx or concerns. appears to be growing weaker due to spending so much time in bed, per OT; pt was encouraged by OT to be up and about more. 12/14: no change. continue current mgmt. 12/15 continue tx . 12/16 continue tx. 12/17: Continue current regimen and plans 12/18: Continue current regimen and plans 12/19: stable. continue current mgmt. 12/20: no change in presentation. continue current mgmt. 12/21: continues as per prior. awaiting placement. 12/22: continues as per prior. awaiting placement. 12/23 continue tx 12/24 continue tx. 12/25 ordered urologist consult for incontinence 12/27 continue tx. awaiting placement. 12/28/24: Put treatment team, patient is awaiting for placement, isolated in room, out for meals but not attended to groups today. Flat affect, mild depressed, no side effects. Continue to encourage groups and out more on the unit for activities. Patient has not seen by urologist for incontinence. 12/30/2024: No change 12/31: no changes 01/01: no changes 01/02 pt stable, awaiting placement. WIll order routine labs including cbc, cmp, TSH, 01/03 cbc unremarkable and improved, no longer showing anemia. CMP with no electrolyte imbalances. However, TSH low 0.07 on levothyroxine, hospitalist consult ordered (dose of levothyrozine adjusted). 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 01/04 continue tx. 01/05 continue tx. 01/06 continue tx. 01/07/25: flat affect, report mild depression and anxiety. Denies side effects. Denies safety concerns. Selt report slept only an hour last night. Back pain /1o but declines Tylenol. 01/08/25: No changes. Compliant with medication. No behavior. Isolated herself in room. Attempted to no groups, minimum peers and staff interaction. However pleasant upon approach 01/09 continue tx. 01/10 continue tx. 01/11 continue tx. 01/12 continue tx. 01/13 continue tx. 01/14: no change today 01/15: no change today Reason for continued inpatient stay Substantial Risk for: inability to function and rapid decompensation Time Spent With Patient Time: Total time managing care of this patient today _10___ minutes.
[2025-01-15 20:00] VITALS: BP 113/56; PULSE 68; RESP 16; TEMP 36.4; O2SAT 95
[2025-01-16 08:00] VITALS: BP 129/54; PULSE 78; RESP 16; TEMP 36.4; O2SAT 98
--- NOTE | 2025-01-16 08:47 | HO.PSYCHPN ---
Subjective Subjective Date of Service: 01/16/25 Reason For Visit: bipolar 1 disorder current or most recent epi Subjective Notes: Conditional Voluntary Healthcare Proxy: Yes Interim History: Pt slept through the night. Mostly in her room. She denies any physical concerns. She does have episodes of incontinence since admission. taking medications as prescribed. VS stable. Review of Systems Review of Systems Negative except for what is noted in the HPI Yes all other systems are reviewed and are negative Mental Status Exam Mental Status Exam Narrative: Appearance: hospital attire, adequate grooming and hygiene Behavior: passively cooperative Orientation: alert, grossly oriented to the encounter Memory: grossly intact to recent events today Attention: able to attend to a brief encounter Psychomotor Function: lying on bed Speech: paucity of speech Mood: okay Affect: diminished range Thought Process: linear Thought Content: denies SI/HI Hallucinations: denies AVH delusions: none evinced Insight: mild impairment Judgment: mild impairment Impulsivity: none noted Diagnostics Vital Signs (24Hr): Vital Signs - 24 hr 01/15/25 20:00 Temperature 97.5 F Pulse Rate 68 Respiratory Rate 16 Blood Pressure 113/56 L Pulse Oximetry 95 Oxygen Delivery Method Room Air BMI result Body Mass Index 23.2 Labs 01/03/25 07:32 01/03/25 07:32 Imaging Radiology Impressions: ITS Impressions Head CT 08/25/24 11:33 IMPRESSION: No acute intracranial abnormality. Electronically signed by: Cj Colunga MD 08/25/2024 12:12 PM EST RP KUB X-Ray 10/28/24 09:50 IMPRESSION: Abundant stool without intestinal obstruction pattern. Electronically signed by: Audie Uribe MD 10/28/2024 10:02 AM EDT RP Medications Medications Current Medications Acetaminophen (Acetaminophen 325 Mg Tablet) 325 mg PO Q6H PRN PRN Reason: Pain, Mild (Pain Scale 1-3) Aripiprazole (Aripiprazole 30 Mg Tablet) 30 mg PO DAILY [facility] Last Admin: 01/15/25 08:38 Dose: 30 mg Benzocaine (Throat Lozenge, Medicated Lozenge) 1 lozenge MUCOUS MEM Q1H PRN PRN Reason: Sore Throat Last Admin: 09/01/24 06:09 Dose: 1 lozenge Guaifenesin/Dextromethorphan (Guaifenesin Dm 200/20/10 Ml 10 Ml Syrup) 10 ml PO Q4H PRN PRN Reason: Cough Last Admin: 08/30/24 05:47 Dose: 10 ml Levothyroxine Sodium (Levothyroxine Sodium 50 Mcg Tablet) 50 mcg PO DAILY@0600 [facility] Last Admin: 01/16/25 05:55 Dose: 50 mcg Lidocaine/Diphenhydr/Alum/Mg/Simeth (Mag&Al/Sim/Diphenhyd/Lidocaine 10 Ml Oral.Susp) 10 ml PO Q6H PRN; Protocol PRN Reason: Painful Gums Last Admin: 08/26/24 13:38 Dose: 10 ml Memantine (Memantine Hcl 5 Mg Tablet) 5 mg PO BID [facility] Last Admin: 01/15/25 20:26 Dose: 5 mg Olanzapine (Olanzapine Odt 10 Mg Tab.Rapdis) 5 mg TRANSLINGU Q6H PRN PRN Reason: Agitation Last Admin: 01/03/25 08:40 Dose: 5 mg Polyethylene Glycol (Polyethylene Glycol 3350 17 Gm Powd.Pack) 17 gm PO DAILY PRN PRN Reason: constipation Senna/Docusate Sodium (Sennosides/Docusate Sodium Tablet) 1 tab PO BID [facility] Last Admin: 01/15/25 20:26 Dose: 1 tab Vitamin D (Cholecalciferol (Vitamin D3) 25 Mcg Tablet) 50 mcg PO DAILY [facility] Last Admin: 01/15/25 08:38 Dose: 50 mcg Allergies Allergies Allergy/AdvReac Type Severity Reaction Status Date / Time meperidine (From Demerol) AdvReac Intermediate Rash Verified 08/23/24 19:34 morphine AdvReac Intermediate Rash Verified 08/23/24 19:35 Sulfa (Sulfonamide AdvReac Intermediate Rash Verified 08/23/24 19:36 Antibiotics) Assessment & Plan Assessment & Plan (1) Schizoaffective disorder: Status: Acute Code(s): F25.9 - Schizoaffective disorder, unspecified Plan Plan stable. continue current mgmt. awaiting placement. 12/10/24- no change CTP 12/11/24- patient flat but responsive- CTP 12/12: no change, continue current mgmt. 12/13: no change, denies any Sx or concerns. appears to be growing weaker due to spending so much time in bed, per OT; pt was encouraged by OT to be up and about more. 12/14: no change. continue current mgmt. 12/15 continue tx . 12/16 continue tx. 12/17: Continue current regimen and plans 12/18: Continue current regimen and plans 12/19: stable. continue current mgmt. 12/20: no change in presentation. continue current mgmt. 12/21: continues as per prior. awaiting placement. 12/22: continues as per prior. awaiting placement. 12/23 continue tx 12/24 continue tx. 12/25 ordered urologist consult for incontinence 12/27 continue tx. awaiting placement. 12/28/24: Put treatment team, patient is awaiting for placement, isolated in room, out for meals but not attended to groups today. Flat affect, mild depressed, no side effects. Continue to encourage groups and out more on the unit for activities. Patient has not seen by urologist for incontinence. 12/30/2024: No change 12/31: no changes 01/01: no changes 01/02 pt stable, awaiting placement. WIll order routine labs including cbc, cmp, TSH, 01/03 cbc unremarkable and improved, no longer showing anemia. CMP with no electrolyte imbalances. However, TSH low 0.07 on levothyroxine, hospitalist consult ordered (dose of levothyrozine adjusted). 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 01/04 continue tx. 01/05 continue tx. 01/06 continue tx. 01/07/25: flat affect, report mild depression and anxiety. Denies side effects. Denies safety concerns. Selt report slept only an hour last night. Back pain 5/1o but declines Tylenol. 01/08/25: No changes. Compliant with medication. No behavior. Isolated herself in room. Attempted to no groups, minimum peers and staff interaction. However pleasant upon approach 01/09 continue tx. 01/10 continue tx. 01/11 continue tx. 01/12 continue tx. 01/13 continue tx. 01/14: no change today 01/15: no change today 01/16 continue tx. Reason for continued inpatient stay Substantial Risk for: inability to function Time Spent With Patient Time: Total time managing care of this patient today ____ minutes.
[2025-01-16] MEDS: ARIPiprazole 30 MG TABLET PO (08:58)
[2025-01-16 20:00] VITALS: BP 112/53; PULSE 74; RESP 17; TEMP 36.4; O2SAT 96
[2025-01-17 08:00] VITALS: BP 117/77; PULSE 94; RESP 16; TEMP 36.3; O2SAT 97
[2025-01-17] MEDS: ARIPiprazole 30 MG TABLET PO (08:13)
--- NOTE | 2025-01-17 09:39 | PC.NURSE ---
Levothyroxine given at this time d/t not available at 6am, per Priscilla Motta approval.
--- NOTE | 2025-01-17 18:16 | HO.PSYCHPN ---
Subjective Subjective Date of Service: 01/17/25 Reason For Visit: bipolar 1 disorder current or most recent epi Subjective Notes: Conditional Voluntary Healthcare Proxy: Yes Interim History: Pt slept through the night. Mostly in her room. She denies any physical concerns. She does have episodes of incontinence since admission. taking medications as prescribed. VS stable. Review of Systems Review of Systems Negative except for what is noted in the HPI Yes all other systems are reviewed and are negative Mental Status Exam Mental Status Exam Narrative: Appearance: hospital attire, adequate grooming and hygiene Behavior: passively cooperative Orientation: alert, grossly oriented to the encounter Memory: grossly intact to recent events today Attention: able to attend to a brief encounter Psychomotor Function: lying on bed Speech: paucity of speech Mood: okay Affect: diminished range Thought Process: linear Thought Content: denies SI/HI Hallucinations: denies AVH delusions: none evinced Insight: mild impairment Judgment: mild impairment Impulsivity: none noted Diagnostics Vital Signs (24Hr): Vital Signs - 24 hr 01/16/25 20:00 01/17/25 08:00 Temperature 97.6 F 97.3 F Pulse Rate 74 94 Respiratory Rate 17 16 Blood Pressure 112/53 L 117/77 Pulse Oximetry 96 97 Oxygen Delivery Method Room Air Room Air BMI result Body Mass Index 23.2 Labs 01/03/25 07:32 01/03/25 07:32 Imaging Radiology Impressions: ITS Impressions Head CT 08/25/24 11:33 IMPRESSION: No acute intracranial abnormality. Electronically signed by: Cj Colunga MD 08/25/2024 12:12 PM EST RP KUB X-Ray 10/28/24 09:50 IMPRESSION: Abundant stool without intestinal obstruction pattern. Electronically signed by: Audie Uribe MD 10/28/2024 10:02 AM EDT RP Medications Medications Current Medications Acetaminophen (Acetaminophen 325 Mg Tablet) 325 mg PO Q6H PRN PRN Reason: Pain, Mild (Pain Scale 1-3) Aripiprazole (Aripiprazole 30 Mg Tablet) 30 mg PO DAILY [facility] Last Admin: 01/17/25 08:13 Dose: 30 mg Benzocaine (Throat Lozenge, Medicated Lozenge) 1 lozenge MUCOUS MEM Q1H PRN PRN Reason: Sore Throat Last Admin: 09/01/24 06:09 Dose: 1 lozenge Guaifenesin/Dextromethorphan (Guaifenesin Dm 200/20/10 Ml 10 Ml Syrup) 10 ml PO Q4H PRN PRN Reason: Cough Last Admin: 08/30/24 05:47 Dose: 10 ml Levothyroxine Sodium (Levothyroxine Sodium 50 Mcg Tablet) 50 mcg PO DAILY@0600 [facility] Last Admin: 01/17/25 09:39 Dose: 50 mcg Lidocaine/Diphenhydr/Alum/Mg/Simeth (Mag&Al/Sim/Diphenhyd/Lidocaine 10 Ml Oral.Susp) 10 ml PO Q6H PRN; Protocol PRN Reason: Painful Gums Last Admin: 08/26/24 13:38 Dose: 10 ml Memantine (Memantine Hcl 5 Mg Tablet) 5 mg PO BID [facility] Last Admin: 01/17/25 08:13 Dose: 5 mg Olanzapine (Olanzapine Odt 10 Mg Tab.Rapdis) 5 mg TRANSLINGU Q6H PRN PRN Reason: Agitation Last Admin: 01/03/25 08:40 Dose: 5 mg Polyethylene Glycol (Polyethylene Glycol 3350 17 Gm Powd.Pack) 17 gm PO DAILY PRN PRN Reason: constipation Senna/Docusate Sodium (Sennosides/Docusate Sodium Tablet) 1 tab PO BID [facility] Last Admin: 01/17/25 08:13 Dose: 1 tab Vitamin D (Cholecalciferol (Vitamin D3) 25 Mcg Tablet) 50 mcg PO DAILY [facility] Last Admin: 01/17/25 08:13 Dose: 50 mcg Allergies Allergies Allergy/AdvReac Type Severity Reaction Status Date / Time meperidine (From Demerol) AdvReac Intermediate Rash Verified 08/23/24 19:34 morphine AdvReac Intermediate Rash Verified 08/23/24 19:35 Sulfa (Sulfonamide AdvReac Intermediate Rash Verified 08/23/24 19:36 Antibiotics) Assessment & Plan Assessment & Plan (1) Schizoaffective disorder: Status: Acute Code(s): F25.9 - Schizoaffective disorder, unspecified Plan Plan stable. continue current mgmt. awaiting placement. 12/10/24- no change CTP 12/11/24- patient flat but responsive- CTP 12/12: no change, continue current mgmt. 12/13: no change, denies any Sx or concerns. appears to be growing weaker due to spending so much time in bed, per OT; pt was encouraged by OT to be up and about more. 12/14: no change. continue current mgmt. 12/15 continue tx . 12/16 continue tx. 12/17: Continue current regimen and plans 12/18: Continue current regimen and plans 12/19: stable. continue current mgmt. 12/20: no change in presentation. continue current mgmt. 12/21: continues as per prior. awaiting placement. 12/22: continues as per prior. awaiting placement. 12/23 continue tx 12/24 continue tx. 12/25 ordered urologist consult for incontinence 12/27 continue tx. awaiting placement. 12/28/24: Put treatment team, patient is awaiting for placement, isolated in room, out for meals but not attended to groups today. Flat affect, mild depressed, no side effects. Continue to encourage groups and out more on the unit for activities. Patient has not seen by urologist for incontinence. 12/30/2024: No change 12/31: no changes 01/01: no changes 01/02 pt stable, awaiting placement. WIll order routine labs including cbc, cmp, TSH, 01/03 cbc unremarkable and improved, no longer showing anemia. CMP with no electrolyte imbalances. However, TSH low 0.07 on levothyroxine, hospitalist consult ordered (dose of levothyrozine adjusted). 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 01/04 continue tx. 01/05 continue tx. 01/06 continue tx. 01/07/25: flat affect, report mild depression and anxiety. Denies side effects. Denies safety concerns. Selt report slept only an hour last night. Back pain /1o but declines Tylenol. 01/08/25: No changes. Compliant with medication. No behavior. Isolated herself in room. Attempted to no groups, minimum peers and staff interaction. However pleasant upon approach 01/09 continue tx. 01/10 continue tx. 01/11 continue tx. 01/12 continue tx. 01/13 continue tx. 01/14: no change today 01/15: no change today 01/16 continue tx. 01/17 continue tx. Reason for continued inpatient stay Substantial Risk for: inability to function Time Spent With Patient Time: Total time managing care of this patient today ____ minutes.
[2025-01-17 20:00] VITALS: BP 108/53; PULSE 56; RESP 16; TEMP 36.8; O2SAT 96
[2025-01-18 08:18] VITALS: BP 150/53; PULSE 70; RESP 18; TEMP 36.3; O2SAT 98
[2025-01-18] MEDS: ARIPiprazole 30 MG TABLET PO (08:54)
--- NOTE | 2025-01-18 14:39 | HO.PSYCHPN ---
Subjective Subjective Date of Service: 01/18/25 Reason For Visit: bipolar 1 disorder current or most recent epi Subjective Notes: Conditional Voluntary Healthcare Proxy: Yes Interim History: Pt slept through the night. Mostly in her room. She denies any physical concerns. taking medications as prescribed. VS stable. Review of Systems Review of Systems Negative except for what is noted in the HPI Yes all other systems are reviewed and are negative Mental Status Exam Mental Status Exam Narrative: Appearance: hospital attire, adequate grooming and hygiene Behavior: passively cooperative Orientation: alert, grossly oriented to the encounter Memory: grossly intact to recent events today Attention: able to attend to a brief encounter Psychomotor Function: lying on bed Speech: paucity of speech Mood: okay Affect: diminished range Thought Process: linear Thought Content: denies SI/HI Hallucinations: denies AVH delusions: none evinced Insight: mild impairment Judgment: mild impairment Impulsivity: none noted Diagnostics Vital Signs (24Hr): Vital Signs - 24 hr 01/17/25 20:00 01/18/25 08:18 Temperature 98.3 F 97.3 F Pulse Rate 56 70 Respiratory Rate 16 18 Blood Pressure 108/53 L 150/53 H Pulse Oximetry 96 98 Oxygen Delivery Method Room Air Room Air BMI result Body Mass Index 23.2 Labs 01/03/25 07:32 01/03/25 07:32 Imaging Radiology Impressions: ITS Impressions Head CT 08/25/24 11:33 IMPRESSION: No acute intracranial abnormality. Electronically signed by: Cj Colunga MD 08/25/2024 12:12 PM EST RP KUB X-Ray 10/28/24 09:50 IMPRESSION: Abundant stool without intestinal obstruction pattern. Electronically signed by: Audie Uribe MD 10/28/2024 10:02 AM EDT RP Medications Medications Current Medications Acetaminophen (Acetaminophen 325 Mg Tablet) 325 mg PO Q6H PRN PRN Reason: Pain, Mild (Pain Scale 1-3) Aripiprazole (Aripiprazole 30 Mg Tablet) 30 mg PO DAILY [facility] Last Admin: 01/18/25 08:54 Dose: 30 mg Benzocaine (Throat Lozenge, Medicated Lozenge) 1 lozenge MUCOUS MEM Q1H PRN PRN Reason: Sore Throat Last Admin: 09/01/24 06:09 Dose: 1 lozenge Guaifenesin/Dextromethorphan (Guaifenesin Dm 200/20/10 Ml 10 Ml Syrup) 10 ml PO Q4H PRN PRN Reason: Cough Last Admin: 08/30/24 05:47 Dose: 10 ml Levothyroxine Sodium (Levothyroxine Sodium 50 Mcg Tablet) 50 mcg PO DAILY@0600 [facility] Last Admin: 01/18/25 05:42 Dose: 50 mcg Lidocaine/Diphenhydr/Alum/Mg/Simeth (Mag&Al/Sim/Diphenhyd/Lidocaine 10 Ml Oral.Susp) 10 ml PO Q6H PRN; Protocol PRN Reason: Painful Gums Last Admin: 08/26/24 13:38 Dose: 10 ml Memantine (Memantine Hcl 5 Mg Tablet) 5 mg PO BID [facility] Last Admin: 01/18/25 08:54 Dose: 5 mg Olanzapine (Olanzapine Odt 10 Mg Tab.Rapdis) 5 mg TRANSLINGU Q6H PRN PRN Reason: Agitation Last Admin: 01/03/25 08:40 Dose: 5 mg Polyethylene Glycol (Polyethylene Glycol 3350 17 Gm Powd.Pack) 17 gm PO DAILY PRN PRN Reason: constipation Senna/Docusate Sodium (Sennosides/Docusate Sodium Tablet) 1 tab PO BID [facility] Last Admin: 01/18/25 08:54 Dose: 1 tab Vitamin D (Cholecalciferol (Vitamin D3) 25 Mcg Tablet) 50 mcg PO DAILY [facility] Last Admin: 01/18/25 08:53 Dose: 50 mcg Allergies Allergies Allergy/AdvReac Type Severity Reaction Status Date / Time meperidine (From Demerol) AdvReac Intermediate Rash Verified 08/23/24 19:34 morphine AdvReac Intermediate Rash Verified 08/23/24 19:35 Sulfa (Sulfonamide AdvReac Intermediate Rash Verified 08/23/24 19:36 Antibiotics) Assessment & Plan Assessment & Plan (1) Schizoaffective disorder: Status: Acute Code(s): F25.9 - Schizoaffective disorder, unspecified Plan Plan stable. continue current mgmt. awaiting placement. 12/10/24- no change CTP 12/11/24- patient flat but responsive- CTP 12/12: no change, continue current mgmt. 12/13: no change, denies any Sx or concerns. appears to be growing weaker due to spending so much time in bed, per OT; pt was encouraged by OT to be up and about more. 12/14: no change. continue current mgmt. 12/15 continue tx . 12/16 continue tx. 12/17: Continue current regimen and plans 12/18: Continue current regimen and plans 12/19: stable. continue current mgmt. 12/20: no change in presentation. continue current mgmt. 12/21: continues as per prior. awaiting placement. 12/22: continues as per prior. awaiting placement. 12/23 continue tx 12/24 continue tx. 12/25 ordered urologist consult for incontinence 12/27 continue tx. awaiting placement. 12/28/24: Put treatment team, patient is awaiting for placement, isolated in room, out for meals but not attended to groups today. Flat affect, mild depressed, no side effects. Continue to encourage groups and out more on the unit for activities. Patient has not seen by urologist for incontinence. 12/30/2024: No change 12/31: no changes 01/01: no changes 01/02 pt stable, awaiting placement. WIll order routine labs including cbc, cmp, TSH, 01/03 cbc unremarkable and improved, no longer showing anemia. CMP with no electrolyte imbalances. However, TSH low 0.07 on levothyroxine, hospitalist consult ordered (dose of levothyrozine adjusted). 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 01/04 continue tx. 01/05 continue tx. 01/06 continue tx. 01/07/25: flat affect, report mild depression and anxiety. Denies side effects. Denies safety concerns. Selt report slept only an hour last night. Back pain 10/27o but declines Tylenol. 01/08/25: No changes. Compliant with medication. No behavior. Isolated herself in room. Attempted to no groups, minimum peers and staff interaction. However pleasant upon approach 01/09 continue tx. 01/10 continue tx. 01/11 continue tx. 01/12 continue tx. 01/13 continue tx. 01/14: no change today 01/15: no change today 01/16 continue tx. 01/17 continue tx. 01/18 continue tx. Reason for continued inpatient stay Substantial Risk for: inability to function Time Spent With Patient Time: Total time managing care of this patient today ____ minutes.
[2025-01-18 20:00] VITALS: BP 108/60; PULSE 65; RESP 16; TEMP 36.6; O2SAT 96
[2025-01-19 08:00] VITALS: BP 117/66; PULSE 79; RESP 19; TEMP 36.8; O2SAT 98
[2025-01-19 08:24] VITALS: BMI 23.8
[2025-01-19] MEDS: ARIPiprazole 30 MG TABLET PO (11:44)
--- NOTE | 2025-01-19 19:11 | P.PNPSI_ITS ---
Subjective Subjective Date of Service: 01/19/25 Reason For Visit: bipolar 1 disorder current or most recent epi Subjective Notes: Conditional Voluntary Healthcare Proxy: Yes Interim History: Pt slept through the night. She is mostly in room. taking medications as prescribed. she denies any concerns. VS stable. Diagnostics Vital Signs (24Hr): Vital Signs - 24 hr 01/18/25 20:00 01/19/25 08:00 Temperature 97.9 F 98.2 F Pulse Rate 65 79 Respiratory Rate 16 19 Blood Pressure 108/60 117/66 Pulse Oximetry 96 98 Oxygen Delivery Method Room Air Room Air BMI result Body Mass Index 23.8 Labs 01/03/25 07:32 01/03/25 07:32 Imaging Radiology Impressions: ITS Impressions Head CT 08/25/24 11:33 IMPRESSION: No acute intracranial abnormality. Electronically signed by: Cj Colunga MD 08/25/2024 12:12 PM EST RP KUB X-Ray 10/28/24 09:50 IMPRESSION: Abundant stool without intestinal obstruction pattern. Electronically signed by: Audie Uribe MD 10/28/2024 10:02 AM EDT RP Medications Medications Current Medications Acetaminophen (Acetaminophen 325 Mg Tablet) 325 mg PO Q6H PRN PRN Reason: Pain, Mild (Pain Scale 1-3) Aripiprazole (Aripiprazole 30 Mg Tablet) 30 mg PO DAILY [facility] Last Admin: 01/19/25 11:44 Dose: 30 mg Benzocaine (Throat Lozenge, Medicated Lozenge) 1 lozenge MUCOUS MEM Q1H PRN PRN Reason: Sore Throat Last Admin: 09/01/24 06:09 Dose: 1 lozenge Guaifenesin/Dextromethorphan (Guaifenesin Dm 200/20/10 Ml 10 Ml Syrup) 10 ml PO Q4H PRN PRN Reason: Cough Last Admin: 08/30/24 05:47 Dose: 10 ml Levothyroxine Sodium (Levothyroxine Sodium 50 Mcg Tablet) 50 mcg PO DAILY@0600 [facility] Last Admin: 01/19/25 06:16 Dose: 50 mcg Lidocaine/Diphenhydr/Alum/Mg/Simeth (Mag&Al/Sim/Diphenhyd/Lidocaine 10 Ml Oral.Susp) 10 ml PO Q6H PRN; Protocol PRN Reason: Painful Gums Last Admin: 08/26/24 13:38 Dose: 10 ml Memantine (Memantine Hcl 5 Mg Tablet) 5 mg PO BID [facility] Last Admin: 01/19/25 11:43 Dose: 5 mg Olanzapine (Olanzapine Odt 10 Mg Tab.Rapdis) 5 mg TRANSLINGU Q6H PRN PRN Reason: Agitation Last Admin: 01/03/25 08:40 Dose: 5 mg Polyethylene Glycol (Polyethylene Glycol 3350 17 Gm Powd.Pack) 17 gm PO DAILY PRN PRN Reason: constipation Senna/Docusate Sodium (Sennosides/Docusate Sodium Tablet) 1 tab PO BID [facility] Last Admin: 01/19/25 11:44 Dose: Not Given Vitamin D (Cholecalciferol (Vitamin D3) 25 Mcg Tablet) 50 mcg PO DAILY [facility] Last Admin: 01/19/25 11:43 Dose: 50 mcg Allergies Allergies Allergy/AdvReac Type Severity Reaction Status Date / Time meperidine (From Demerol) AdvReac Intermediate Rash Verified 08/23/24 19:34 morphine AdvReac Intermediate Rash Verified 08/23/24 19:35 Sulfa (Sulfonamide AdvReac Intermediate Rash Verified 08/23/24 19:36 Antibiotics) Assessment & Plan Assessment & Plan (1) Schizoaffective disorder: Status: Acute Code(s): F25.9 - Schizoaffective disorder, unspecified Plan Plan stable. continue current mgmt. awaiting placement. 12/10/24- no change CTP 12/11/24- patient flat but responsive- CTP 12/12: no change, continue current mgmt. 12/13: no change, denies any Sx or concerns. appears to be growing weaker due to spending so much time in bed, per OT; pt was encouraged by OT to be up and about more. 12/14: no change. continue current mgmt. 12/15 continue tx . 12/16 continue tx. 12/17: Continue current regimen and plans 12/18: Continue current regimen and plans 12/19: stable. continue current mgmt. 12/20: no change in presentation. continue current mgmt. 12/21: continues as per prior. awaiting placement. 12/22: continues as per prior. awaiting placement. 12/23 continue tx 12/24 continue tx. 12/25 ordered urologist consult for incontinence 12/27 continue tx. awaiting placement. 12/28/24: Put treatment team, patient is awaiting for placement, isolated in room, out for meals but not attended to groups today. Flat affect, mild depressed, no side effects. Continue to encourage groups and out more on the unit for activities. Patient has not seen by urologist for incontinence. 12/30/2024: No change 12/31: no changes 01/01: no changes 01/02 pt stable, awaiting placement. WIll order routine labs including cbc, cmp, TSH, 01/03 cbc unremarkable and improved, no longer showing anemia. CMP with no electrolyte imbalances. However, TSH low 0.07 on levothyroxine, hospitalist consult ordered (dose of levothyrozine adjusted). 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 01/04 continue tx. 01/05 continue tx. 01/06 continue tx. 01/07/25: flat affect, report mild depression and anxiety. Denies side effects. Denies safety concerns. Selt report slept only an hour last night. Back pain 10/27o but declines Tylenol. 01/08/25: No changes. Compliant with medication. No behavior. Isolated herself in room. Attempted to no groups, minimum peers and staff interaction. However pleasant upon approach 01/09 continue tx. 01/10 continue tx. 01/11 continue tx. 01/12 continue tx. 01/13 continue tx. 01/14: no change today 01/15: no change today 01/16 continue tx. 01/17 continue tx. 01/18 continue tx. 01/19 continue tx. Reason for continued inpatient stay Substantial Risk for: inability to function Time Spent With Patient Time: Total time managing care of this patient today ____ minutes.
[2025-01-19 20:00] VITALS: BP 125/62; PULSE 70; RESP 16; TEMP 36.8; O2SAT 95
[2025-01-20 08:00] VITALS: BP 126/92; PULSE 105; RESP 18; TEMP 37.1; O2SAT 99
[2025-01-20] MEDS: ARIPiprazole 30 MG TABLET PO (09:01)
--- NOTE | 2025-01-20 11:07 | HO.PSYCHPN ---
Subjective Subjective Date of Service: 01/20/25 Reason For Visit: bipolar 1 disorder current or most recent epi Interim History: no change in presentation. terse, telegraphic speech, nearly. per staff, withdrawn. flat. eating. some groups. stable. slept 7 hours. Mental Status Exam Mental Status Exam Narrative: Appearance: hospital attire, adequate grooming and hygiene Behavior: passively cooperative Orientation: alert, grossly oriented to the encounter Memory: grossly intact to recent events today Attention: able to attend to a brief encounter Psychomotor Function: lying on bed Speech: paucity of speech Mood: okay Affect: diminished range Thought Process: linear Thought Content: denies SI/HI Hallucinations: denies AVH delusions: none evinced Insight: mild impairment Judgment: mild impairment Impulsivity: none noted Diagnostics Vital Signs (24Hr): Vital Signs - 24 hr 01/19/25 20:00 01/20/25 08:00 Temperature 98.2 F 98.8 F Pulse Rate 70 105 H Respiratory Rate 16 18 Blood Pressure 125/62 126/92 H Pulse Oximetry 95 99 Oxygen Delivery Method Room Air Room Air BMI result Body Mass Index 23.8 Labs 01/03/25 07:32 01/03/25 07:32 Imaging Radiology Impressions: ITS Impressions Head CT 08/25/24 11:33 IMPRESSION: No acute intracranial abnormality. Electronically signed by: Cj Colunga MD 08/25/2024 12:12 PM EST RP KUB X-Ray 10/28/24 09:50 IMPRESSION: Abundant stool without intestinal obstruction pattern. Electronically signed by: Audie Uribe MD 10/28/2024 10:02 AM EDT RP Medications Medications Current Medications Acetaminophen (Acetaminophen 325 Mg Tablet) 325 mg PO Q6H PRN PRN Reason: Pain, Mild (Pain Scale 1-3) Aripiprazole (Aripiprazole 30 Mg Tablet) 30 mg PO DAILY [facility] Last Admin: 01/20/25 09:01 Dose: 30 mg Benzocaine (Throat Lozenge, Medicated Lozenge) 1 lozenge MUCOUS MEM Q1H PRN PRN Reason: Sore Throat Last Admin: 09/01/24 06:09 Dose: 1 lozenge Guaifenesin/Dextromethorphan (Guaifenesin Dm 200/20/10 Ml 10 Ml Syrup) 10 ml PO Q4H PRN PRN Reason: Cough Last Admin: 08/30/24 05:47 Dose: 10 ml Levothyroxine Sodium (Levothyroxine Sodium 50 Mcg Tablet) 50 mcg PO DAILY@0600 [facility] Last Admin: 01/20/25 06:05 Dose: 50 mcg Lidocaine/Diphenhydr/Alum/Mg/Simeth (Mag&Al/Sim/Diphenhyd/Lidocaine 10 Ml Oral.Susp) 10 ml PO Q6H PRN; Protocol PRN Reason: Painful Gums Last Admin: 08/26/24 13:38 Dose: 10 ml Memantine (Memantine Hcl 5 Mg Tablet) 5 mg PO BID [facility] Last Admin: 01/20/25 09:01 Dose: 5 mg Olanzapine (Olanzapine Odt 10 Mg Tab.Rapdis) 5 mg TRANSLINGU Q6H PRN PRN Reason: Agitation Last Admin: 01/03/25 08:40 Dose: 5 mg Polyethylene Glycol (Polyethylene Glycol 3350 17 Gm Powd.Pack) 17 gm PO DAILY PRN PRN Reason: constipation Senna/Docusate Sodium (Sennosides/Docusate Sodium Tablet) 1 tab PO BID [facility] Last Admin: 01/20/25 09:01 Dose: 1 tab Vitamin D (Cholecalciferol (Vitamin D3) 25 Mcg Tablet) 50 mcg PO DAILY [facility] Last Admin: 01/20/25 09:01 Dose: 50 mcg Allergies Allergies Allergy/AdvReac Type Severity Reaction Status Date / Time meperidine (From Demerol) AdvReac Intermediate Rash Verified 08/23/24 19:34 morphine AdvReac Intermediate Rash Verified 08/23/24 19:35 Sulfa (Sulfonamide AdvReac Intermediate Rash Verified 08/23/24 19:36 Antibiotics) Assessment & Plan Assessment & Plan (1) Schizoaffective disorder: Status: Acute Code(s): F25.9 - Schizoaffective disorder, unspecified Plan Plan stable. continue current mgmt. awaiting placement. 12/10/24- no change CTP 12/11/24- patient flat but responsive- CTP 12/12: no change, continue current mgmt. 12/13: no change, denies any Sx or concerns. appears to be growing weaker due to spending so much time in bed, per OT; pt was encouraged by OT to be up and about more. 12/14: no change. continue current mgmt. 12/15 continue tx . 12/16 continue tx. 12/17: Continue current regimen and plans 12/18: Continue current regimen and plans 12/19: stable. continue current mgmt. 12/20: no change in presentation. continue current mgmt. 12/21: continues as per prior. awaiting placement. 12/22: continues as per prior. awaiting placement. 12/23 continue tx 12/24 continue tx. 12/25 ordered urologist consult for incontinence 12/27 continue tx. awaiting placement. 12/28/24: Put treatment team, patient is awaiting for placement, isolated in room, out for meals but not attended to groups today. Flat affect, mild depressed, no side effects. Continue to encourage groups and out more on the unit for activities. Patient has not seen by urologist for incontinence. 12/30/2024: No change 12/31: no changes 01/01: no changes 01/02 pt stable, awaiting placement. WIll order routine labs including cbc, cmp, TSH, 01/03 cbc unremarkable and improved, no longer showing anemia. CMP with no electrolyte imbalances. However, TSH low 0.07 on levothyroxine, hospitalist consult ordered (dose of levothyrozine adjusted). 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 01/04 continue tx. 01/05 continue tx. 01/06 continue tx. 01/07/25: flat affect, report mild depression and anxiety. Denies side effects. Denies safety concerns. Selt report slept only an hour last night. Back pain 5/1o but declines Tylenol. 01/08/25: No changes. Compliant with medication. No behavior. Isolated herself in room. Attempted to no groups, minimum peers and staff interaction. However pleasant upon approach 01/09 continue tx. 01/10 continue tx. 01/11 continue tx. 01/12 continue tx. 01/13 continue tx. 01/14: no change today 01/15: no change today 01/16 continue tx. 01/17 continue tx. 01/18 continue tx. 01/19 continue tx. 01/20: stable presentation. continue current mgmt. Reason for continued inpatient stay Substantial Risk for: inability to function Time Spent With Patient Time: Total time managing care of this patient today ____ minutes.
[2025-01-20 20:00] VITALS: BP 130/60; PULSE 86; RESP 16; TEMP 36.4; O2SAT 94
[2025-01-21 08:00] VITALS: BP 128/75; PULSE 87; RESP 18; TEMP 36.4; O2SAT 95
[2025-01-21] MEDS: ARIPiprazole 30 MG TABLET PO (08:19)
--- NOTE | 2025-01-21 16:42 | P.PNPSI_ITS ---
Subjective Subjective Date of Service: 01/21/25 Reason For Visit: bipolar 1 disorder current or most recent epi Interim History: no change in presentation. Patient remains withdrawn and monosyllabic in her answers. Isolates in room a lot of the day. flat. eating well. No behavioral concerns. Denies SI/AVH. Review of Systems Review of Systems Negative except for what is noted in the HPI Yes all other systems are reviewed and are negative Mental Status Exam Mental Status Exam Narrative: Appearance: hospital attire, adequate grooming and hygiene Behavior: passively cooperative Orientation: alert, grossly oriented to the encounter Memory: grossly intact to recent events today Attention: able to attend to a brief encounter Psychomotor Function: lying on bed Speech: paucity of speech Mood: okay Affect: diminished range Thought Process: linear Thought Content: denies SI/HI Hallucinations: denies AVH delusions: none evinced Insight: mild impairment Judgment: mild impairment Impulsivity: none noted Patient Appearance: Well Grooomed Patient Orientation: Person and Situation Level of Consciousness: Awake and Alert Patient Behavior: Passive and Isolative Mood Description: Constricted Affect Description: Flat Patient Cognition Impaired: No Ability to Follow Directions: Fair Speech Pattern: Clear and Impoverished Memory Description: Intact Diagnostics Vital Signs (24Hr): Vital Signs - 24 hr 01/20/25 20:00 01/21/25 08:00 Temperature 97.6 F 97.5 F Pulse Rate 86 87 Respiratory Rate 16 18 Blood Pressure 130/60 128/75 Pulse Oximetry 94 95 Oxygen Delivery Method Room Air Room Air BMI result Body Mass Index 23.8 Labs 01/03/25 07:32 01/03/25 07:32 Imaging Radiology Impressions: ITS Impressions Head CT 08/25/24 11:33 IMPRESSION: No acute intracranial abnormality. Electronically signed by: Cj Colunga MD 08/25/2024 12:12 PM EST RP [facility] X-Ray 10/28/24 09:50 IMPRESSION: Abundant stool without intestinal obstruction pattern. Electronically signed by: Audie Uribe MD 10/28/2024 10:02 AM EDT RP Medications Medications Current Medications Acetaminophen (Acetaminophen 325 Mg Tablet) 325 mg PO Q6H PRN PRN Reason: Pain, Mild (Pain Scale 1-3) Aripiprazole (Aripiprazole 30 Mg Tablet) 30 mg PO DAILY [facility] Last Admin: 01/21/25 08:19 Dose: 30 mg Benzocaine (Throat Lozenge, Medicated Lozenge) 1 lozenge MUCOUS MEM Q1H PRN PRN Reason: Sore Throat Last Admin: 09/01/24 06:09 Dose: 1 lozenge Guaifenesin/Dextromethorphan (Guaifenesin Dm 200/20/10 Ml 10 Ml Syrup) 10 ml PO Q4H PRN PRN Reason: Cough Last Admin: 08/30/24 05:47 Dose: 10 ml Levothyroxine Sodium (Levothyroxine Sodium 50 Mcg Tablet) 50 mcg PO DAILY@0600 [facility] Last Admin: 01/21/25 06:20 Dose: 50 mcg Lidocaine/Diphenhydr/Alum/Mg/Simeth (Mag&Al/Sim/Diphenhyd/Lidocaine 10 Ml Oral.Susp) 10 ml PO Q6H PRN; Protocol PRN Reason: Painful Gums Last Admin: 08/26/24 13:38 Dose: 10 ml Memantine (Memantine Hcl 5 Mg Tablet) 5 mg PO BID [facility] Last Admin: 01/21/25 08:19 Dose: 5 mg Olanzapine (Olanzapine Odt 10 Mg Tab.Rapdis) 5 mg TRANSLINGU Q6H PRN PRN Reason: Agitation Last Admin: 01/03/25 08:40 Dose: 5 mg Polyethylene Glycol (Polyethylene Glycol 3350 17 Gm Powd.Pack) 17 gm PO DAILY PRN PRN Reason: constipation Senna/Docusate Sodium (Sennosides/Docusate Sodium Tablet) 1 tab PO BID [facility] Last Admin: 01/21/25 08:19 Dose: 1 tab Vitamin D (Cholecalciferol (Vitamin D3) 25 Mcg Tablet) 50 mcg PO DAILY [facility] Last Admin: 01/21/25 08:19 Dose: 50 mcg Allergies Allergies Allergy/AdvReac Type Severity Reaction Status Date / Time meperidine (From Demerol) AdvReac Intermediate Rash Verified 08/23/24 19:34 morphine AdvReac Intermediate Rash Verified 08/23/24 19:35 Sulfa (Sulfonamide AdvReac Intermediate Rash Verified 08/23/24 19:36 Antibiotics) Assessment & Plan Assessment & Plan (1) Schizoaffective disorder: Status: Acute Code(s): F25.9 - Schizoaffective disorder, unspecified Plan Plan stable. continue current mgmt. awaiting placement. 12/10/24- no change CTP 12/11/24- patient flat but responsive- CTP 12/12: no change, continue current mgmt. 12/13: no change, denies any Sx or concerns. appears to be growing weaker due to spending so much time in bed, per OT; pt was encouraged by OT to be up and about more. 12/14: no change. continue current mgmt. 12/15 continue tx . 12/16 continue tx. 12/17: Continue current regimen and plans 12/18: Continue current regimen and plans 12/19: stable. continue current mgmt. 12/20: no change in presentation. continue current mgmt. 12/21: continues as per prior. awaiting placement. 12/22: continues as per prior. awaiting placement. 12/23 continue tx 12/24 continue tx. 12/25 ordered urologist consult for incontinence 12/27 continue tx. awaiting placement. 12/28/24: Put treatment team, patient is awaiting for placement, isolated in room, out for meals but not attended to groups today. Flat affect, mild depressed, no side effects. Continue to encourage groups and out more on the unit for activities. Patient has not seen by urologist for incontinence. 12/30/2024: No change 12/31: no changes 01/01: no changes 01/02 pt stable, awaiting placement. WIll order routine labs including cbc, cmp, TSH, 01/03 cbc unremarkable and improved, no longer showing anemia. CMP with no electrolyte imbalances. However, TSH low 0.07 on levothyroxine, hospitalist consult ordered (dose of levothyrozine adjusted). 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 01/04 continue tx. 01/05 continue tx. 01/06 continue tx. 01/07/25: flat affect, report mild depression and anxiety. Denies side effects. Denies safety concerns. Selt report slept only an hour last night. Back pain 5/1o but declines Tylenol. 01/08/25: No changes. Compliant with medication. No behavior. Isolated herself in room. Attempted to no groups, minimum peers and staff interaction. However pleasant upon approach 01/09 continue tx. 01/10 continue tx. 7/16 continue tx. 01/12 continue tx. 01/13 continue tx. 01/14: no change today 01/15: no change today 01/16 continue tx. 01/17 continue tx. 01/18 continue tx. 01/19 continue tx. 01/20: stable presentation. continue current mgmt. 01/21: Continue current management and treatment plan. Reason for continued inpatient stay Substantial Risk for: inability to function and rapid decompensation Time Spent With Patient Time: Total time managing care of this patient today ____ minutes.
[2025-01-21 20:00] VITALS: BP 110/60; PULSE 82; RESP 16; TEMP 36.1; O2SAT 95
[2025-01-22 08:26] VITALS: BP 126/80; PULSE 87; RESP 16; TEMP 36.2; O2SAT 98
[2025-01-22] MEDS: ARIPiprazole 30 MG TABLET PO (09:30)
--- NOTE | 2025-01-22 16:09 | HO.PSYCHPN ---
Subjective Subjective Date of Service: 01/22/25 Reason For Visit: bipolar 1 disorder current or most recent epi Interim History: no change in presentation. Patient remains withdrawn and monosyllabic in her answers. Isolates in room a lot of the day. flat. eating well. No behavioral concerns. Denies SI/AVH. Review of Systems Review of Systems Negative except for what is noted in the HPI Yes all other systems are reviewed and are negative Mental Status Exam Mental Status Exam Narrative: Appearance: hospital attire, adequate grooming and hygiene Behavior: passively cooperative Orientation: alert, grossly oriented to the encounter Memory: grossly intact to recent events today Attention: able to attend to a brief encounter Psychomotor Function: lying on bed Speech: paucity of speech Mood: okay Affect: diminished range Thought Process: linear Thought Content: denies SI/HI Hallucinations: denies AVH delusions: none evinced Insight: mild impairment Judgment: mild impairment Impulsivity: none noted Patient Appearance: Well Grooomed Patient Orientation: Person and Situation Level of Consciousness: Awake and Alert Patient Behavior: Passive and Isolative Mood Description: Constricted Affect Description: Flat Patient Cognition Impaired: No Ability to Follow Directions: Fair Speech Pattern: Clear and Impoverished Memory Description: Intact Diagnostics Vital Signs (24Hr): Vital Signs - 24 hr 01/21/25 20:00 01/22/25 08:26 Temperature 97 F 97.2 F Pulse Rate 82 87 Respiratory Rate 16 16 Blood Pressure 110/60 126/80 Pulse Oximetry 95 98 Oxygen Delivery Method Room Air Room Air BMI result Body Mass Index 23.8 Labs 01/03/25 07:32 01/03/25 07:32 Imaging Radiology Impressions: ITS Impressions Head CT 08/25/24 11:33 IMPRESSION: No acute intracranial abnormality. Electronically signed by: Cj Colunga MD 08/25/2024 12:12 PM EST RP KUB X-Ray 10/28/24 09:50 IMPRESSION: Abundant stool without intestinal obstruction pattern. Electronically signed by: Audie Uribe MD 10/28/2024 10:02 AM EDT RP Medications Medications Current Medications Acetaminophen (Acetaminophen 325 Mg Tablet) 325 mg PO Q6H PRN PRN Reason: Pain, Mild (Pain Scale 1-3) Aripiprazole (Aripiprazole 30 Mg Tablet) 30 mg PO DAILY [facility] Last Admin: 01/22/25 09:30 Dose: 30 mg Benzocaine (Throat Lozenge, Medicated Lozenge) 1 lozenge MUCOUS MEM Q1H PRN PRN Reason: Sore Throat Last Admin: 09/01/24 06:09 Dose: 1 lozenge Guaifenesin/Dextromethorphan (Guaifenesin Dm 200/20/10 Ml 10 Ml Syrup) 10 ml PO Q4H PRN PRN Reason: Cough Last Admin: 08/30/24 05:47 Dose: 10 ml Levothyroxine Sodium (Levothyroxine Sodium 50 Mcg Tablet) 50 mcg PO DAILY@0600 [facility] Last Admin: 01/22/25 06:13 Dose: 50 mcg Lidocaine/Diphenhydr/Alum/Mg/Simeth (Mag&Al/Sim/Diphenhyd/Lidocaine 10 Ml Oral.Susp) 10 ml PO Q6H PRN; Protocol PRN Reason: Painful Gums Last Admin: 08/26/24 13:38 Dose: 10 ml Memantine (Memantine Hcl 5 Mg Tablet) 5 mg PO BID [facility] Last Admin: 01/22/25 09:30 Dose: 5 mg Olanzapine (Olanzapine Odt 10 Mg Tab.Rapdis) 5 mg TRANSLINGU Q6H PRN PRN Reason: Agitation Last Admin: 01/03/25 08:40 Dose: 5 mg Polyethylene Glycol (Polyethylene Glycol 3350 17 Gm Powd.Pack) 17 gm PO DAILY PRN PRN Reason: constipation Senna/Docusate Sodium (Sennosides/Docusate Sodium Tablet) 1 tab PO BID [facility] Last Admin: 01/22/25 09:30 Dose: 1 tab Vitamin D (Cholecalciferol (Vitamin D3) 25 Mcg Tablet) 50 mcg PO DAILY [facility] Last Admin: 01/22/25 09:30 Dose: 50 mcg Allergies Allergies Allergy/AdvReac Type Severity Reaction Status Date / Time meperidine (From Demerol) AdvReac Intermediate Rash Verified 08/23/24 19:34 morphine AdvReac Intermediate Rash Verified 08/23/24 19:35 Sulfa (Sulfonamide AdvReac Intermediate Rash Verified 08/23/24 19:36 Antibiotics) Assessment & Plan Assessment & Plan (1) Schizoaffective disorder: Status: Acute Code(s): F25.9 - Schizoaffective disorder, unspecified Plan Plan stable. continue current mgmt. awaiting placement. 12/10/24- no change CTP 12/11/24- patient flat but responsive- CTP 12/12: no change, continue current mgmt. 12/13: no change, denies any Sx or concerns. appears to be growing weaker due to spending so much time in bed, per OT; pt was encouraged by OT to be up and about more. 12/14: no change. continue current mgmt. 12/15 continue tx . 12/16 continue tx. 12/17: Continue current regimen and plans 12/18: Continue current regimen and plans 12/19: stable. continue current mgmt. 12/20: no change in presentation. continue current mgmt. 12/21: continues as per prior. awaiting placement. 12/22: continues as per prior. awaiting placement. 12/23 continue tx 12/24 continue tx. 12/25 ordered urologist consult for incontinence 12/27 continue tx. awaiting placement. 12/28/24: Put treatment team, patient is awaiting for placement, isolated in room, out for meals but not attended to groups today. Flat affect, mild depressed, no side effects. Continue to encourage groups and out more on the unit for activities. Patient has not seen by urologist for incontinence. 12/30/2024: No change 12/31: no changes 01/01: no changes 01/02 pt stable, awaiting placement. WIll order routine labs including cbc, cmp, TSH, 01/03 cbc unremarkable and improved, no longer showing anemia. CMP with no electrolyte imbalances. However, TSH low 0.07 on levothyroxine, hospitalist consult ordered (dose of levothyrozine adjusted). 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 01/04 continue tx. 01/05 continue tx. 01/06 continue tx. 01/07/25: flat affect, report mild depression and anxiety. Denies side effects. Denies safety concerns. Selt report slept only an hour last night. Back pain /1o but declines Tylenol. 01/08/25: No changes. Compliant with medication. No behavior. Isolated herself in room. Attempted to no groups, minimum peers and staff interaction. However pleasant upon approach 01/09 continue tx. 01/10 continue tx. 01/11 continue tx. 01/12 continue tx. 01/13 continue tx. 01/14: no change today 01/15: no change today 01/16 continue tx. 01/17 continue tx. 01/18 continue tx. 01/19 continue tx. 01/20: stable presentation. continue current mgmt. 01/21: Continue current management and treatment plan. 01/22: continue current management and treatment plan. Reason for continued inpatient stay Substantial Risk for: inability to function and rapid decompensation Time Spent With Patient Time: Total time managing care of this patient today ____ minutes.
[2025-01-22 20:00] VITALS: BP 120/59; PULSE 58; RESP 16; TEMP 36.9; O2SAT 96
[2025-01-23 08:00] VITALS: BP 117/57; PULSE 85; RESP 16; TEMP 36.6; O2SAT 98
[2025-01-23] MEDS: ARIPiprazole 30 MG TABLET PO (08:51)
--- NOTE | 2025-01-23 18:07 | P.PNPSI_ITS ---
Subjective Subjective Date of Service: 01/23/25 Reason For Visit: bipolar 1 disorder current or most recent epi Subjective Notes: Conditional Voluntary Medical Problems Affecting Mental Status: No Interim History: Medical record and nursing notes reviewed; case discussed during rounds with team/nursing staff, and met with patient for supportive therapy/psychoeducation, as well as medication management. Patient slept for 8 hours. Reports good appetite. Was medication compliant. Denies side effects. Not observe any side effects during one-to-one assessment. Observed being out for meals but mostly in bed isolated herself. Mood is good , denies suicidal thoughts and other safety concerns. Denied voices. Reports no anxiety or depression. However she reports with the nurse that she has anxiety and depression 11/05 This provider also assess her toenails. Appear to have chronic fungal issues. I am not sure the cream going to be helpful as his chronic for many years. Reported that her feet hurt. Continued to wait for placement. She reported that she went to [facility] this morning when asked if she attempted to any groups today. Medication Compliance: Yes Side effects from medications: No Attending Groups: Intermittent Review of Systems Acute medical concerns: No Medical Review of Systems: unchanged Review of Systems Review of Systems Negative except for what is noted in the HPI Yes all other systems are reviewed and are negative Mental Status Exam Mental Status Exam Narrative: Appearance: hospital attire, adequate grooming and hygiene Behavior: passively cooperative Orientation: alert, grossly oriented to the encounter Memory: grossly intact to recent events today Attention: able to attend to a brief encounter Psychomotor Function: lying on bed Speech: paucity of speech Mood: good Affect: flat Thought Process: linear Thought Content: denies SI/HI Hallucinations: denies AVH delusions: none evinced Insight: mild impairment Judgment: mild impairment Impulsivity: none noted Diagnostics Vital Signs (24Hr): Vital Signs - 24 hr 01/22/25 20:00 01/23/25 08:00 Temperature 98.4 F 97.9 F Pulse Rate 58 85 Respiratory Rate 16 16 Blood Pressure 120/59 L 117/57 L Pulse Oximetry 96 98 Oxygen Delivery Method Room Air Room Air BMI result Body Mass Index 23.8 Labs 01/03/25 07:32 01/03/25 07:32 Imaging Radiology Impressions: ITS Impressions Head CT 08/25/24 11:33 IMPRESSION: No acute intracranial abnormality. Electronically signed by: Cj Colunga MD 08/25/2024 12:12 PM EST RP KUB X-Ray 10/28/24 09:50 IMPRESSION: Abundant stool without intestinal obstruction pattern. Electronically signed by: Audie Uribe MD 10/28/2024 10:02 AM EDT RP Medications Medications Current Medications Acetaminophen (Acetaminophen 325 Mg Tablet) 325 mg PO Q6H PRN PRN Reason: Pain, Mild (Pain Scale 1-3) Aripiprazole (Aripiprazole 30 Mg Tablet) 30 mg PO DAILY [facility] Last Admin: 01/23/25 08:51 Dose: 30 mg Benzocaine (Throat Lozenge, Medicated Lozenge) 1 lozenge MUCOUS MEM Q1H PRN PRN Reason: Sore Throat Last Admin: 09/01/24 06:09 Dose: 1 lozenge Guaifenesin/Dextromethorphan (Guaifenesin Dm 200/20/10 Ml 10 Ml Syrup) 10 ml PO Q4H PRN PRN Reason: Cough Last Admin: 08/30/24 05:47 Dose: 10 ml Levothyroxine Sodium (Levothyroxine Sodium 50 Mcg Tablet) 50 mcg PO DAILY@0600 [facility] Last Admin: 01/23/25 06:05 Dose: 50 mcg Lidocaine/Diphenhydr/Alum/Mg/Simeth (Mag&Al/Sim/Diphenhyd/Lidocaine 10 Ml Oral.Susp) 10 ml PO Q6H PRN; Protocol PRN Reason: Painful Gums Last Admin: 08/26/24 13:38 Dose: 10 ml Memantine (Memantine Hcl 5 Mg Tablet) 5 mg PO BID [facility] Last Admin: 01/23/25 08:51 Dose: 5 mg Olanzapine (Olanzapine Odt 10 Mg Tab.Rapdis) 5 mg TRANSLINGU Q6H PRN PRN Reason: Agitation Last Admin: 01/03/25 08:40 Dose: 5 mg Polyethylene Glycol (Polyethylene Glycol 3350 17 Gm Powd.Pack) 17 gm PO DAILY PRN PRN Reason: constipation Senna/Docusate Sodium (Sennosides/Docusate Sodium Tablet) 1 tab PO BID [facility] Last Admin: 01/23/25 08:53 Dose: Not Given Vitamin D (Cholecalciferol (Vitamin D3) 25 Mcg Tablet) 50 mcg PO DAILY [facility] Last Admin: 01/23/25 08:51 Dose: 50 mcg Allergies Allergies Allergy/AdvReac Type Severity Reaction Status Date / Time meperidine (From Demerol) AdvReac Intermediate Rash Verified 08/23/24 19:34 morphine AdvReac Intermediate Rash Verified 08/23/24 19:35 Sulfa (Sulfonamide AdvReac Intermediate Rash Verified 08/23/24 19:36 Antibiotics) Assessment & Plan Assessment & Plan (1) Schizoaffective disorder: Status: Acute Code(s): F25.9 - Schizoaffective disorder, unspecified Plan Plan stable. continue current mgmt. awaiting placement. 12/10/24- no change CTP 12/11/24- patient flat but responsive- CTP 12/12: no change, continue current mgmt. 12/13: no change, denies any Sx or concerns. appears to be growing weaker due to spending so much time in bed, per OT; pt was encouraged by OT to be up and about more. 12/14: no change. continue current mgmt. 12/15 continue tx . 12/16 continue tx. 12/17: Continue current regimen and plans 12/18: Continue current regimen and plans 12/19: stable. continue current mgmt. 12/20: no change in presentation. continue current mgmt. 12/21: continues as per prior. awaiting placement. 12/22: continues as per prior. awaiting placement. 12/23 continue tx 12/24 continue tx. 12/25 ordered urologist consult for incontinence 12/27 continue tx. awaiting placement. 12/28/24: Put treatment team, patient is awaiting for placement, isolated in room, out for meals but not attended to groups today. Flat affect, mild depressed, no side effects. Continue to encourage groups and out more on the unit for activities. Patient has not seen by urologist for incontinence. 12/30/2024: No change 12/31: no changes 01/01: no changes 01/02 pt stable, awaiting placement. WIll order routine labs including cbc, cmp, TSH, 01/03 cbc unremarkable and improved, no longer showing anemia. CMP with no electrolyte imbalances. However, TSH low 0.07 on levothyroxine, hospitalist consult ordered (dose of levothyrozine adjusted). 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 01/04 continue tx. 01/05 continue tx. 01/06 continue tx. 01/07/25: flat affect, report mild depression and anxiety. Denies side effects. Denies safety concerns. Selt report slept only an hour last night. Back pain 5/1o but declines Tylenol. 01/08/25: No changes. Compliant with medication. No behavior. Isolated herself in room. Attempted to no groups, minimum peers and staff interaction. However pleasant upon approach 01/09 continue tx. 01/10 continue tx. 01/11 continue tx. 01/12 continue tx. 01/13 continue tx. 01/14: no change today 01/15: no change today 01/16 continue tx. 01/17 continue tx. 01/18 continue tx. 01/19 continue tx. 01/20: stable presentation. continue current mgmt. 01/21: Continue current management and treatment plan. 01/22: continue current management and treatment plan. 01/23/25: Not much change, continued to isolated herself in bed after meals. Reports attempted to 1 group this morning. Slept for 8 hours and was medication compliant. Reports feeling her toenails hurts. She let me check her feet even though say no but she given the feet to take the socks off to check on her toenails. Appear to have chronic fungal issue. Denies safety concerns. Continued to wait for placement. No for episode. Appeared to be clean. Patient educated on: medication risk/benefits and therapeutic strategies Informed Consent: further education needed Reason for continued inpatient stay Substantial Risk for: med/psych decompensation Time Spent With Patient Time: Total time managing care of this patient today ____ minutes.
[2025-01-23 20:00] VITALS: BP 114/53; PULSE 65; RESP 16; TEMP 36.2; O2SAT 96
[2025-01-24 08:00] VITALS: BP 126/58; PULSE 82; RESP 14; TEMP 36.4; O2SAT 99
[2025-01-24] MEDS: ARIPiprazole 30 MG TABLET PO (08:39)
--- NOTE | 2025-01-24 08:47 | P.PNPSI_ITS ---
Subjective Subjective Date of Service: 01/24/25 Reason For Visit: bipolar 1 disorder current or most recent epi Subjective Notes: Conditional Voluntary Medical Problems Affecting Mental Status: No Interim History: Medical record and nursing notes reviewed; case discussed during rounds with team/nursing staff, and met with patient for supportive therapy/psychoeducation, as well as medication management. Patient slept for 8 hours, was medication compliant. Denies side effects are no side effects noticed. Reported that she slept well and ate well, able to recall some of the food that she ate this morning or for lunch. Observe to the [place] with the shoes on walking/pacing. Reports toe nails hurt. Denies depression anxiety. Denies safety concerns. Continued to encourage patient to of her room more often. She states that she went to 1 group this morning. Also reported that she showered yesterday. Reported that she have 4 children, someone visit her a couple weeks ago. Medication Compliance: Yes Side effects from medications: No Attending Groups: No Review of Systems Acute medical concerns: No Medical Review of Systems: unchanged Review of Systems Review of Systems Negative except for what is noted in the HPI. Reports toenails hurt Yes all other systems are reviewed and are negative Mental Status Exam Mental Status Exam Narrative: Appearance: hospital attire, adequate grooming and hygiene Behavior: passively cooperative Orientation: alert, grossly oriented to the encounter Memory: grossly intact to recent events today Attention: able to attend to a brief encounter Psychomotor Function: Up and out to the [place] pacing/walking. Speech: paucity of speech Mood: good Affect: flat Thought Process: linear Thought Content: denies SI/HI Hallucinations: denies AVH delusions: none evinced Insight: mild impairment Judgment: mild impairment Impulsivity: none noted Diagnostics Vital Signs (24Hr): Vital Signs - 24 hr 01/23/25 20:00 Temperature 97.2 F Pulse Rate 65 Respiratory Rate 16 Blood Pressure 114/53 L Pulse Oximetry 96 Oxygen Delivery Method Room Air BMI result Body Mass Index 23.8 Labs 01/03/25 07:32 01/03/25 07:32 Imaging Radiology Impressions: ITS Impressions Head CT 08/25/24 11:33 IMPRESSION: No acute intracranial abnormality. Electronically signed by: Cj Colunga MD 08/25/2024 12:[address] [facility] K[facility] X-Ray 10/28/24 09:50 IMPRESSION: Abundant stool without intestinal obstruction pattern. Electronically signed by: Audie Uribe MD 10/28/2024 10:02 AM EDT Medications Medications Current Medications Acetaminophen (Acetaminophen 325 Mg Tablet) 325 mg PO Q6H PRN PRN Reason: Pain, Mild (Pain Scale 1-3) Aripiprazole (Aripiprazole 30 Mg Tablet) 30 mg PO DAILY [facility] Last Admin: 01/24/25 08:39 Dose: 30 mg Benzocaine (Throat Lozenge, Medicated Lozenge) 1 lozenge MUCOUS MEM Q1H PRN PRN Reason: Sore Throat Last Admin: 09/01/24 06:09 Dose: 1 lozenge Guaifenesin/Dextromethorphan (Guaifenesin Dm 200/20/10 Ml 10 Ml Syrup) 10 ml PO Q4H PRN PRN Reason: Cough Last Admin: 08/30/24 05:47 Dose: 10 ml Levothyroxine Sodium (Levothyroxine Sodium 50 Mcg Tablet) 50 mcg PO DAILY@0600 [facility] [place] Last Admin: 01/24/25 06:27 Dose: 50 mcg Lidocaine/Diphenhydr/Alum/Mg/Simeth (Mag&Al/Sim/Diphenhyd/Lidocaine 10 Ml Oral.Susp) 10 ml PO Q6H PRN; Protocol PRN Reason: Painful Gums Last Admin: 08/26/24 13:38 Dose: 10 ml Memantine (Memantine Hcl 5 Mg Tablet) 5 mg PO BID [facility] [place] Last Admin: 01/24/25 08:38 Dose: 5 mg Olanzapine (Olanzapine Odt 10 Mg Tab.Rapdis) 5 mg TRANSLINGU Q6H PRN PRN Reason: Agitation Last Admin: 01/03/25 08:40 Dose: 5 mg Polyethylene Glycol (Polyethylene Glycol 3350 17 Gm Powd.Pack) 17 gm PO DAILY PRN PRN Reason: constipation Senna/Docusate Sodium (Sennosides/Docusate Sodium Tablet) 1 tab PO BID [facility] [place] Last Admin: 01/24/25 08:39 Dose: 1 tab Vitamin D (Cholecalciferol (Vitamin D3) 25 Mcg Tablet) 50 mcg PO DAILY [facility] [place] Last Admin: 01/24/25 08:39 Dose: 50 mcg Allergies Allergies Allergy/AdvReac Type Severity Reaction Status Date / Time meperidine (From Demerol) AdvReac Intermediate Rash Verified 08/23/24 19:34 morphine AdvReac Intermediate Rash Verified 08/23/24 19:35 Sulfa (Sulfonamide AdvReac Intermediate Rash Verified 08/23/24 19:36 Antibiotics) Assessment & Plan Assessment & Plan (1) Schizoaffective disorder: Status: Acute Code(s): F25.9 - Schizoaffective disorder, unspecified Plan Plan stable. continue current mgmt. awaiting placement. 12/10/24- no change CTP 12/11/24- patient flat but responsive- CTP 12/12: no change, continue current mgmt. 12/13: no change, denies any Sx or concerns. appears to be growing weaker due to spending so much time in bed, per OT; pt was encouraged by OT to be up and about more. 12/14: no change. continue current mgmt. 12/15 continue tx . 12/16 continue tx. 12/17: Continue current regimen and plans 12/18: Continue current regimen and plans 12/19: stable. continue current mgmt. 12/20: no change in presentation. continue current mgmt. 12/21: continues as per prior. awaiting placement. 12/22: continues as per prior. awaiting placement. 12/23 continue tx 12/24 continue tx. 12/25 ordered urologist consult for incontinence 12/27 continue tx. awaiting placement. 12/28/24: Put treatment team, patient is awaiting for placement, isolated in room, out for meals but not attended to groups today. Flat affect, mild depressed, no side effects. Continue to encourage groups and out more on the unit for activities. Patient has not seen by urologist for incontinence. 12/30/2024: No change 12/31: no changes 01/01: no changes 01/02 pt stable, awaiting placement. WIll order routine labs including cbc, cmp, TSH, 01/03 cbc unremarkable and improved, no longer showing anemia. CMP with no electrolyte imbalances. However, TSH low 0.07 on levothyroxine, hospitalist consult ordered (dose of levothyrozine adjusted). 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 01/04 continue tx. 01/05 continue tx. 01/06 continue tx. 01/07/25: flat affect, report mild depression and anxiety. Denies side effects. Denies safety concerns. Selt report slept only an hour last night. Back pain 5/1o but declines Tylenol. 01/08/25: No changes. Compliant with medication. No behavior. Isolated herself in room. Attempted to no groups, minimum peers and staff interaction. However pleasant upon approach 01/09 continue tx. 01/10 continue tx. 01/11 continue tx. 01/12 continue tx. 01/13 continue tx. 01/14: no change today 01/15: no change today 01/16 continue tx. 01/17 continue tx. 01/18 continue tx. 01/19 continue tx. 01/20: stable presentation. continue current mgmt. 01/21: Continue current management and treatment plan. 01/22: continue current management and treatment plan. 01/23/25: Not much change, continued to isolated herself in bed after meals. Reports attempted to 1 group this morning. Slept for 8 hours and was medication compliant. Reports feeling her toenails hurts. She let me check her feet even though say no but she given the feet to take the socks off to check on her toenails. Appear to have chronic fungal issue. Denies safety concerns. Continued to wait for placement. No for episode. Appeared to be clean. 01/24/25: Observed in the [place] with shoes on walking/pacing. Reports she went to 1 group this morning. Compliant with medication. No appetite or sleeping issues. She shares that she had [address] in different [place], last visit she has was a couple of weeks ago. Denies other safety concerns. Denied depression or anxiety. Self reported that she showered yesterday. Continued to encourage patient to be out more for groups Patient educated on: diagnosis, medication risk/benefits and therapeutic strategies Informed Consent: understands and further education needed Reason for continued inpatient stay Substantial Risk for: med/psych decompensation Time Spent With Patient Time: Total time managing care of this patient today ____ minutes.
[2025-01-24 20:00] VITALS: BP 125/60; PULSE 75; RESP 16; TEMP 36.6; O2SAT 98
[2025-01-25 08:00] VITALS: BP 118/57; PULSE 72; RESP 14; TEMP 36.7; O2SAT 95
[2025-01-25] MEDS: ARIPiprazole 30 MG TABLET PO (08:37)
[2025-01-25 20:00] VITALS: BP 106/60; PULSE 88; RESP 16; TEMP 37.1; O2SAT 93
[2025-01-26 08:47] VITALS: BMI 23.5
[2025-01-26 08:56] VITALS: BP 110/57; PULSE 80; RESP 16; TEMP 36.9; O2SAT 96
[2025-01-26] MEDS: ARIPiprazole 30 MG TABLET PO (08:58)
--- NOTE | 2025-01-26 15:31 | HO.PSYCHPN ---
Subjective Subjective Date of Service: 01/26/25 Reason For Visit: bipolar 1 disorder current or most recent epi Subjective Notes: Conditional Voluntary Interim History: Medical record and nursing notes reviewed; case discussed during rounds with team/nursing staff, and met with patient for supportive therapy/psychoeducation, as well as medication management. Patient slept through the night, was medication compliant. Denies any side effects. Patient reported that she did not go to any groups this morning, but able to walk a little bit earlier today. Encouraged to continue to do it later on stretch her muscle, and for good circulation. Denies safety concerns. Denies pain. Denies depression or anxiety. Medication Compliance: Yes Side effects from medications: No Attending Groups: No Review of Systems Acute medical concerns: No Medical Review of Systems: unchanged Review of Systems Review of Systems Negative except for what is noted in the HPI. Denies pain. Yes all other systems are reviewed and are negative Mental Status Exam Mental Status Exam Narrative: Appearance: hospital attire, adequate grooming and hygiene Behavior: cooperative Orientation: alert, grossly oriented to the encounter Memory: grossly intact to recent events today Attention: able to attend to a brief encounter Psychomotor Function: in bed mostly. Out for meals. Declines groups Speech: paucity of speech Mood: good Affect: flat Thought Process: linear Thought Content: denies SI/HI Hallucinations: denies AVH delusions: none evinced Insight: mild impairment Judgment: mild impairment Impulsivity: none noted Diagnostics Vital Signs (24Hr): Vital Signs - 24 hr 01/25/25 20:00 01/26/25 08:56 Temperature 98.7 F 98.5 F Pulse Rate 88 80 Respiratory Rate 16 16 Blood Pressure 106/60 110/57 L Pulse Oximetry 93 96 Oxygen Delivery Method Room Air Room Air BMI result Body Mass Index 23.5 Labs 01/03/25 07:32 01/03/25 07:32 Imaging Radiology Impressions: ITS Impressions Head CT 08/25/24 11:33 IMPRESSION: No acute intracranial abnormality. Electronically signed by: Cj Colunga MD 08/25/2024 12:12 PM EST RP KUB X-Ray 10/28/24 09:50 IMPRESSION: Abundant stool without intestinal obstruction pattern. Electronically signed by: Audie Uribe MD 10/28/2024 10:02 AM EDT RP Medications Medications Current Medications Acetaminophen (Acetaminophen 325 Mg Tablet) 325 mg PO Q6H PRN PRN Reason: Pain, Mild (Pain Scale 1-3) Aripiprazole (Aripiprazole 30 Mg Tablet) 30 mg PO DAILY [facility] Last Admin: 01/26/25 08:58 Dose: 30 mg Benzocaine (Throat Lozenge, Medicated Lozenge) 1 lozenge MUCOUS MEM Q1H PRN PRN Reason: Sore Throat Last Admin: 09/01/24 06:09 Dose: 1 lozenge Guaifenesin/Dextromethorphan (Guaifenesin Dm 200/20/10 Ml 10 Ml Syrup) 10 ml PO Q4H PRN PRN Reason: Cough Last Admin: 08/30/24 05:47 Dose: 10 ml Levothyroxine Sodium (Levothyroxine Sodium 50 Mcg Tablet) 50 mcg PO DAILY@0600 [facility] Last Admin: 01/26/25 06:16 Dose: 50 mcg Lidocaine/Diphenhydr/Alum/Mg/Simeth (Mag&Al/Sim/Diphenhyd/Lidocaine 10 Ml Oral.Susp) 10 ml PO Q6H PRN; Protocol PRN Reason: Painful Gums Last Admin: 08/26/24 13:38 Dose: 10 ml Memantine (Memantine Hcl 5 Mg Tablet) 5 mg PO BID [facility] Last Admin: 01/26/25 08:59 Dose: 5 mg Olanzapine (Olanzapine Odt 10 Mg Tab.Rapdis) 5 mg TRANSLINGU Q6H PRN PRN Reason: Agitation Last Admin: 01/03/25 08:40 Dose: 5 mg Polyethylene Glycol (Polyethylene Glycol 3350 17 Gm Powd.Pack) 17 gm PO DAILY PRN PRN Reason: constipation Senna/Docusate Sodium (Sennosides/Docusate Sodium Tablet) 1 tab PO BID [facility] Last Admin: 01/26/25 08:58 Dose: 1 tab Vitamin D (Cholecalciferol (Vitamin D3) 25 Mcg Tablet) 50 mcg PO DAILY [facility] Last Admin: 01/26/25 09:24 Dose: 50 mcg Allergies Allergies Allergy/AdvReac Type Severity Reaction Status Date / Time meperidine (From Demerol) AdvReac Intermediate Rash Verified 08/23/24 19:34 morphine AdvReac Intermediate Rash Verified 08/23/24 19:35 Sulfa (Sulfonamide AdvReac Intermediate Rash Verified 08/23/24 19:36 Antibiotics) Assessment & Plan Assessment & Plan (1) Schizoaffective disorder: Status: Acute Code(s): F25.9 - Schizoaffective disorder, unspecified Plan Plan stable. continue current mgmt. awaiting placement. 12/10/24- no change CTP 12/11/24- patient flat but responsive- CTP 12/12: no change, continue current mgmt. 12/13: no change, denies any Sx or concerns. appears to be growing weaker due to spending so much time in bed, per OT; pt was encouraged by OT to be up and about more. 12/14: no change. continue current mgmt. 12/15 continue tx . 12/16 continue tx. 12/17: Continue current regimen and plans 12/18: Continue current regimen and plans 12/19: stable. continue current mgmt. 12/20: no change in presentation. continue current mgmt. 12/21: continues as per prior. awaiting placement. 12/22: continues as per prior. awaiting placement. 12/23 continue tx 12/24 continue tx. 12/25 ordered urologist consult for incontinence 12/27 continue tx. awaiting placement. 12/28/24: Put treatment team, patient is awaiting for placement, isolated in room, out for meals but not attended to groups today. Flat affect, mild depressed, no side effects. Continue to encourage groups and out more on the unit for activities. Patient has not seen by urologist for incontinence. 12/30/2024: No change 12/31: no changes 01/01: no changes 01/02 pt stable, awaiting placement. WIll order routine labs including cbc, cmp, TSH, 01/03 cbc unremarkable and improved, no longer showing anemia. CMP with no electrolyte imbalances. However, TSH low 0.07 on levothyroxine, hospitalist consult ordered (dose of levothyrozine adjusted). 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 01/04 continue tx. 01/05 continue tx. 01/06 continue tx. 01/07/25: flat affect, report mild depression and anxiety. Denies side effects. Denies safety concerns. Selt report slept only an hour last night. Back pain 5/1o but declines Tylenol. 01/08/25: No changes. Compliant with medication. No behavior. Isolated herself in room. Attempted to no groups, minimum peers and staff interaction. However pleasant upon approach 01/09 continue tx. 01/10 continue tx. 01/11 continue tx. 01/12 continue tx. 01/13 continue tx. 01/14: no change today 01/15: no change today 01/16 continue tx. 01/17 continue tx. 01/18 continue tx. 01/19 continue tx. 01/20: stable presentation. continue current mgmt. 01/21: Continue current management and treatment plan. 01/22: continue current management and treatment plan. 01/23/25: Not much change, continued to isolated herself in bed after meals. Reports attempted to 1 group this morning. Slept for 8 hours and was medication compliant. Reports feeling her toenails hurts. She let me check her feet even though say no but she given the feet to take the socks off to check on her toenails. Appear to have chronic fungal issue. Denies safety concerns. Continued to wait for placement. No for episode. Appeared to be clean. 01/24/25: Observed in the [place] with shoes on walking/pacing. Reports she went to 1 group this morning. Compliant with medication. No appetite or sleeping issues. She shares that she had 4 children living in different [place], last visit she has was a couple of weeks ago. Denies other safety concerns. Denied depression or anxiety. Self reported that she showered yesterday. Continued to encourage patient to be out more for groups. 01/26/25: Meet with patient in room, lying in bed, flat affect. Sleep and eat well. Out for meals but declined groups. Isolative, calm, pleasant and cooperative. No behavior or management issues, no safety concerns. Assisted with ADL's. Patient educated on: therapeutic strategies Informed Consent: understands Reason for continued inpatient stay Substantial Risk for: med/psych decompensation Time Spent With Patient Time: Total time managing care of this patient today ____ minutes.
[2025-01-26 20:00] VITALS: BP 116/58; PULSE 64; RESP 16; TEMP 36.3; O2SAT 97
[2025-01-27 09:24] VITALS: BP 119/59; PULSE 75; RESP 16; TEMP 36.4; O2SAT 98
[2025-01-27] MEDS: ARIPiprazole 30 MG TABLET PO (09:26)
[2025-01-27 20:00] VITALS: BP 107/56; PULSE 78; RESP 16; TEMP 36.7; O2SAT 96
--- NOTE | 2025-01-28 01:00 | HO.PSYCHPN ---
Subjective Subjective Date of Service: 01/27/25 Reason For Visit: bipolar 1 disorder current or most recent epi Subjective Notes: Conditional Voluntary Interim History: Patient seen chart reviewed case discussed in treatment planning . Patient appetite okay limited engagement in the milieu no new medical concerns Medication Compliance: Yes Side effects from medications: No Attending Groups: No Review of Systems Acute medical concerns: No Medical Review of Systems: unchanged Mental Status Exam Mental Status Exam Patient Appearance: Well Grooomed Patient Orientation: Person and Situation Level of Consciousness: Awake and Alert Patient Behavior: Passive and Isolative Mood Description: Calm and Constricted Affect Description: Blunted and Flat Patient Cognition Impaired: No Ability to Follow Directions: Fair Speech Pattern: Clear and Impoverished Memory Description: Intact Hallucinations: None Thought Process: Slowed Thinking Thought Content: negative for Suicidal Ideation or negative for Homicidal Ideation Abnormal Motor Activity Signs and Symptoms: Psychomotor Retardation Diagnostics Vital Signs (24Hr): Vital Signs - 24 hr 01/27/25 09:24 01/27/25 20:00 Temperature 97.6 F 98.1 F Pulse Rate 75 78 Respiratory Rate 16 16 Blood Pressure 119/59 L 107/56 L Pulse Oximetry 98 96 Oxygen Delivery Method Room Air Room Air BMI result Body Mass Index 23.5 Labs 01/03/25 07:32 01/03/25 07:32 Imaging Radiology Impressions: ITS Impressions Head CT 08/25/24 11:33 IMPRESSION: No acute intracranial abnormality. Electronically signed by: Cj Colunga MD 08/25/2024 12:12 PM EST RP KUB X-Ray 10/28/24 09:50 IMPRESSION: Abundant stool without intestinal obstruction pattern. Electronically signed by: Audie Uribe MD 10/28/2024 10:02 AM EDT RP Medications Medications Current Medications Acetaminophen (Acetaminophen 325 Mg Tablet) 325 mg PO Q6H PRN PRN Reason: Pain, Mild (Pain Scale 1-3) Aripiprazole (Aripiprazole 30 Mg Tablet) 30 mg PO DAILY [facility] Last Admin: 01/27/25 09:26 Dose: 30 mg Benzocaine (Throat Lozenge, Medicated Lozenge) 1 lozenge MUCOUS MEM Q1H PRN PRN Reason: Sore Throat Last Admin: 09/01/24 06:09 Dose: 1 lozenge Guaifenesin/Dextromethorphan (Guaifenesin Dm 200/20/10 Ml 10 Ml Syrup) 10 ml PO Q4H PRN PRN Reason: Cough Last Admin: 08/30/24 05:47 Dose: 10 ml Levothyroxine Sodium (Levothyroxine Sodium 50 Mcg Tablet) 50 mcg PO DAILY@0600 [facility] Last Admin: 01/27/25 05:59 Dose: 50 mcg Lidocaine/Diphenhydr/Alum/Mg/Simeth (Mag&Al/Sim/Diphenhyd/Lidocaine 10 Ml Oral.Susp) 10 ml PO Q6H PRN; Protocol PRN Reason: Painful Gums Last Admin: 08/26/24 13:38 Dose: 10 ml Memantine (Memantine Hcl 5 Mg Tablet) 5 mg PO BID [facility] Last Admin: 01/27/25 20:37 Dose: 5 mg Olanzapine (Olanzapine Odt 10 Mg Tab.Rapdis) 5 mg TRANSLINGU Q6H PRN PRN Reason: Agitation Last Admin: 01/03/25 08:40 Dose: 5 mg Polyethylene Glycol (Polyethylene Glycol 3350 17 Gm Powd.Pack) 17 gm PO DAILY PRN PRN Reason: constipation Senna/Docusate Sodium (Sennosides/Docusate Sodium Tablet) 1 tab PO BID [facility] Last Admin: 01/27/25 20:37 Dose: 1 tab Vitamin D (Cholecalciferol (Vitamin D3) 25 Mcg Tablet) 50 mcg PO DAILY [facility] Last Admin: 01/27/25 09:25 Dose: 50 mcg Allergies Allergies Allergy/AdvReac Type Severity Reaction Status Date / Time meperidine (From Demerol) AdvReac Intermediate Rash Verified 08/23/24 19:34 morphine AdvReac Intermediate Rash Verified 08/23/24 19:35 Sulfa (Sulfonamide AdvReac Intermediate Rash Verified 08/23/24 19:36 Antibiotics) Assessment & Plan Assessment & Plan (1) Schizoaffective disorder: Status: Acute Code(s): F25.9 - Schizoaffective disorder, unspecified Plan Plan stable. continue current mgmt. awaiting placement. 12/10/24- no change CTP 12/11/24- patient flat but responsive- CTP 12/12: no change, continue current mgmt. 12/13: no change, denies any Sx or concerns. appears to be growing weaker due to spending so much time in bed, per OT; pt was encouraged by OT to be up and about more. 12/14: no change. continue current mgmt. 12/15 continue tx . 12/16 continue tx. 12/17: Continue current regimen and plans 12/18: Continue current regimen and plans 12/19: stable. continue current mgmt. 12/20: no change in presentation. continue current mgmt. 12/21: continues as per prior. awaiting placement. 12/22: continues as per prior. awaiting placement. 12/23 continue tx 12/24 continue tx. 12/25 ordered urologist consult for incontinence 12/27 continue tx. awaiting placement. 12/28/24: Put treatment team, patient is awaiting for placement, isolated in room, out for meals but not attended to groups today. Flat affect, mild depressed, no side effects. Continue to encourage groups and out more on the unit for activities. Patient has not seen by urologist for incontinence. 12/30/2024: No change 12/31: no changes 01/01: no changes 01/02 pt stable, awaiting placement. WIll order routine labs including cbc, cmp, TSH, 01/03 cbc unremarkable and improved, no longer showing anemia. CMP with no electrolyte imbalances. However, TSH low 0.07 on levothyroxine, hospitalist consult ordered (dose of levothyrozine adjusted). 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 01/04 continue tx. 01/05 continue tx. 01/06 continue tx. 01/07/25: flat affect, report mild depression and anxiety. Denies side effects. Denies safety concerns. Selt report slept only an hour last night. Back pain /o but declines Tylenol. 01/08/25: No changes. Compliant with medication. No behavior. Isolated herself in room. Attempted to no groups, minimum peers and staff interaction. However pleasant upon approach 01/09 continue tx. 01/10 continue tx. 01/11 continue tx. 01/12 continue tx. 01/13 continue tx. 01/14: no change today 01/15: no change today 01/16 continue tx. 01/17 continue tx. 01/18 continue tx. 01/19 continue tx. 01/20: stable presentation. continue current mgmt. 01/21: Continue current management and treatment plan. 01/22: continue current management and treatment plan. 01/23/25: Not much change, continued to isolated herself in bed after meals. Reports attempted to 1 group this morning. Slept for 8 hours and was medication compliant. Reports feeling her toenails hurts. She let me check her feet even though say no but she given the feet to take the socks off to check on her toenails. Appear to have chronic fungal issue. Denies safety concerns. Continued to wait for placement. No for episode. Appeared to be clean. 01/24/25: Observed in the [place] with shoes on walking/pacing. Reports she went to 1 group this morning. Compliant with medication. No appetite or sleeping issues. She shares that she had 4 children living in different [place], last visit she has was a couple of weeks ago. Denies other safety concerns. Denied depression or anxiety. Self reported that she showered yesterday. Continued to encourage patient to be out more for groups. 01/26/25: Meet with patient in room, lying in bed, flat affect. Sleep and eat well. Out for meals but declined groups. Isolative, calm, pleasant and cooperative. No behavior or management issues, no safety concerns. Assisted with ADL's. 01/27/2025 Patient passive flat somewhat withdrawn spends much of her time in her room. Limited social engagement patient without complaint calm superficially pleasant. Continue discharge planning. No less restrictive placement currently available Reason for continued inpatient stay Substantial Risk for: inability to function and rapid decompensation Time Spent With Patient Time: Total time managing care of this patient today ____ minutes.
[2025-01-28 08:25] VITALS: BP 132/61; PULSE 92; RESP 16; TEMP 36.3; O2SAT 97
[2025-01-28] MEDS: ARIPiprazole 30 MG TABLET PO (08:26)
--- NOTE | 2025-01-28 08:43 | P.PNPSI_ITS ---
Subjective Subjective Date of Service: 01/28/25 Reason For Visit: bipolar 1 disorder current or most recent epi Subjective Notes: Conditional Voluntary Interim History: 69 yo lying on bed, with recurrent movements of limbs - TD like - denying all complaints Side effects from medications: No Attending Groups: No Review of Systems Acute medical concerns: No Medical Review of Systems: unchanged Mental Status Exam Mental Status Exam Patient Appearance: Well Grooomed Patient Orientation: Person and Situation Level of Consciousness: Awake and Alert Patient Behavior: Passive and Isolative Mood Description: Calm and Constricted Affect Description: Blunted and Flat Patient Cognition Impaired: No Ability to Follow Directions: Fair Speech Pattern: Clear and Impoverished Memory Description: Intact Hallucinations: None Thought Process: Slowed Thinking Thought Content: negative for Suicidal Ideation or negative for Homicidal Ideation Abnormal Motor Activity Signs and Symptoms: Psychomotor Retardation Diagnostics Vital Signs (24Hr): Vital Signs - 24 hr 01/27/25 09:24 01/27/25 20:00 Temperature 97.6 F 98.1 F Pulse Rate 75 78 Respiratory Rate 16 16 Blood Pressure 119/59 L 107/56 L Pulse Oximetry 98 96 Oxygen Delivery Method Room Air Room Air BMI result Body Mass Index 23.5 Labs 01/03/25 07:32 01/03/25 07:32 Imaging Radiology Impressions: ITS Impressions Head CT 08/25/24 11:33 IMPRESSION: No acute intracranial abnormality. Electronically signed by: Cj Colunga MD 08/25/2024 12:12 PM EST RP KUB X-Ray 10/28/24 09:50 IMPRESSION: Abundant stool without intestinal obstruction pattern. Electronically signed by: Audie Uribe MD 10/28/2024 10:02 AM EDT RP Medications Medications Current Medications Acetaminophen (Acetaminophen 325 Mg Tablet) 325 mg PO Q6H PRN PRN Reason: Pain, Mild (Pain Scale 1-3) Aripiprazole (Aripiprazole 30 Mg Tablet) 30 mg PO DAILY [facility] Last Admin: 01/28/25 08:26 Dose: 30 mg Benzocaine (Throat Lozenge, Medicated Lozenge) 1 lozenge MUCOUS MEM Q1H PRN PRN Reason: Sore Throat Last Admin: 09/01/24 06:09 Dose: 1 lozenge Guaifenesin/Dextromethorphan (Guaifenesin Dm 200/20/10 Ml 10 Ml Syrup) 10 ml PO Q4H PRN PRN Reason: Cough Last Admin: 08/30/24 05:47 Dose: 10 ml Levothyroxine Sodium (Levothyroxine Sodium 50 Mcg Tablet) 50 mcg PO DAILY@0600 [facility] Last Admin: 01/28/25 05:54 Dose: 50 mcg Lidocaine/Diphenhydr/Alum/Mg/Simeth (Mag&Al/Sim/Diphenhyd/Lidocaine 10 Ml Oral.Susp) 10 ml PO Q6H PRN; Protocol PRN Reason: Painful Gums Last Admin: 08/26/24 13:38 Dose: 10 ml Memantine (Memantine Hcl 5 Mg Tablet) 5 mg PO BID [facility] Last Admin: 01/28/25 08:26 Dose: 5 mg Olanzapine (Olanzapine Odt 10 Mg Tab.Rapdis) 5 mg TRANSLINGU Q6H PRN PRN Reason: Agitation Last Admin: 01/03/25 08:40 Dose: 5 mg Polyethylene Glycol (Polyethylene Glycol 3350 17 Gm Powd.Pack) 17 gm PO DAILY PRN PRN Reason: constipation Senna/Docusate Sodium (Sennosides/Docusate Sodium Tablet) 1 tab PO BID [facility] Last Admin: 01/28/25 08:26 Dose: 1 tab Vitamin D (Cholecalciferol (Vitamin D3) 25 Mcg Tablet) 50 mcg PO DAILY [facility] Last Admin: 01/28/25 08:26 Dose: 50 mcg Allergies Allergies Allergy/AdvReac Type Severity Reaction Status Date / Time meperidine (From Demerol) AdvReac Intermediate Rash Verified 08/23/24 19:34 morphine AdvReac Intermediate Rash Verified 08/23/24 19:35 Sulfa (Sulfonamide AdvReac Intermediate Rash Verified 08/23/24 19:36 Antibiotics) Assessment & Plan Assessment & Plan (1) Schizoaffective disorder: Status: Acute Code(s): F25.9 - Schizoaffective disorder, unspecified Plan Plan stable. continue current mgmt. awaiting placement. 12/10/24- no change CTP 12/11/24- patient flat but responsive- CTP 12/12: no change, continue current mgmt. 12/13: no change, denies any Sx or concerns. appears to be growing weaker due to spending so much time in bed, per OT; pt was encouraged by OT to be up and about more. 12/14: no change. continue current mgmt. 12/15 continue tx . 12/16 continue tx. 12/17: Continue current regimen and plans 12/18: Continue current regimen and plans 12/19: stable. continue current mgmt. 12/20: no change in presentation. continue current mgmt. 12/21: continues as per prior. awaiting placement. 12/22: continues as per prior. awaiting placement. 12/23 continue tx 12/24 continue tx. 12/25 ordered urologist consult for incontinence 12/27 continue tx. awaiting placement. 12/28/24: Put treatment team, patient is awaiting for placement, isolated in room, out for meals but not attended to groups today. Flat affect, mild depressed, no side effects. Continue to encourage groups and out more on the unit for activities. Patient has not seen by urologist for incontinence. 12/30/2024: No change 12/31: no changes 01/01: no changes 01/02 pt stable, awaiting placement. WIll order routine labs including cbc, cmp, TSH, 01/03 cbc unremarkable and improved, no longer showing anemia. CMP with no electrolyte imbalances. However, TSH low 0.07 on levothyroxine, hospitalist consult ordered (dose of levothyrozine adjusted). 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 01/04 continue tx. 01/05 continue tx. 01/06 continue tx. 01/07/25: flat affect, report mild depression and anxiety. Denies side effects. Denies safety concerns. Selt report slept only an hour last night. Back pain 5/1o but declines Tylenol. 01/08/25: No changes. Compliant with medication. No behavior. Isolated herself in room. Attempted to no groups, minimum peers and staff interaction. However pleasant upon approach 01/09 continue tx. 01/10 continue tx. 01/11 continue tx. 01/12 continue tx. 01/13 continue tx. 01/14: no change today 01/15: no change today 01/16 continue tx. 01/17 continue tx. 01/18 continue tx. 01/19 continue tx. 01/20: stable presentation. continue current mgmt. 01/21: Continue current management and treatment plan. 01/22: continue current management and treatment plan. 01/23/25: Not much change, continued to isolated herself in bed after meals. Reports attempted to 1 group this morning. Slept for 8 hours and was medication compliant. Reports feeling her toenails hurts. She let me check her feet even though say no but she given the feet to take the socks off to check on her toenails. Appear to have chronic fungal issue. Denies safety concerns. Continued to wait for placement. No for episode. Appeared to be clean. 01/24/25: Observed in the [place] with shoes on walking/pacing. Reports she went to 1 group this morning. Compliant with medication. No appetite or sleeping issues. She shares that she had 4 children living in different [place], last visit she has was a couple of weeks ago. Denies other safety concerns. Denied depression or anxiety. Self reported that she showered yesterday. Continued to encourage patient to be out more for groups. 01/26/25: Meet with patient in room, lying in bed, flat affect. Sleep and eat well. Out for meals but declined groups. Isolative, calm, pleasant and cooperative. No behavior or management issues, no safety concerns. Assisted with ADL's. 01/27/2025 Patient passive flat somewhat withdrawn spends much of her time in her room. Limited social engagement patient without complaint calm superficially pleasant. Continue discharge planning. No less restrictive placement currently available 01/28- [facility] awaiting placement- Reason for continued inpatient stay Substantial Risk for: inability to function and rapid decompensation Time Spent With Patient Time: Total time managing care of this patient today ____ minutes.
[2025-01-28 20:00] VITALS: BP 115/57; PULSE 62; RESP 16; TEMP 36.9; O2SAT 96
[2025-01-29 08:58] VITALS: BP 115/59; PULSE 79; RESP 14; TEMP 36.5; O2SAT 96
[2025-01-29] MEDS: ARIPiprazole 30 MG TABLET PO (08:59)
--- NOTE | 2025-01-29 12:33 | HO.PSYCHPN ---
Subjective Subjective Date of Service: 01/29/25 Reason For Visit: bipolar 1 disorder current or most recent epi Subjective Notes: Conditional Voluntary Interim History: 69 yo bipolar do awaiting placement, prefers to stay in bed and no engage much - eats, sleep ok, denies any complaints- has some kind of movement do lying oddly in bed wiht legs in air moving Medication Compliance: Yes Side effects from medications: Yes (TD ) Attending Groups: No Review of Systems Acute medical concerns: No Medical Review of Systems: unchanged Mental Status Exam Mental Status Exam Patient Appearance: Well Grooomed Patient Orientation: Person and Situation Level of Consciousness: Awake and Alert Patient Behavior: Passive and Isolative Mood Description: Calm and Constricted Affect Description: Blunted and Flat Patient Cognition Impaired: No Ability to Follow Directions: Fair Speech Pattern: Clear and Impoverished Memory Description: Intact Hallucinations: None Thought Process: Slowed Thinking Thought Content: negative for Suicidal Ideation or negative for Homicidal Ideation Abnormal Motor Activity Signs and Symptoms: Psychomotor Retardation Diagnostics Vital Signs (24Hr): Vital Signs - 24 hr 01/28/25 20:00 01/29/25 08:58 Temperature 98.5 F 97.7 F Pulse Rate 62 79 Respiratory Rate 16 14 Blood Pressure 115/57 L 115/59 L Pulse Oximetry 96 96 Oxygen Delivery Method Room Air Room Air BMI result Body Mass Index 23.5 Labs 01/03/25 07:32 01/03/25 07:32 Imaging Radiology Impressions: ITS Impressions Head CT 08/25/24 11:33 IMPRESSION: No acute intracranial abnormality. Electronically signed by: Cj Colunga MD 08/25/2024 12:12 PM EST RP KUB X-Ray 10/28/24 09:50 IMPRESSION: Abundant stool without intestinal obstruction pattern. Electronically signed by: Audie Uribe MD 10/28/2024 10:02 AM EDT RP Medications Medications Current Medications Acetaminophen (Acetaminophen 325 Mg Tablet) 325 mg PO Q6H PRN PRN Reason: Pain, Mild (Pain Scale 1-3) Aripiprazole (Aripiprazole 30 Mg Tablet) 30 mg PO DAILY [facility] Last Admin: 01/29/25 08:59 Dose: 30 mg Benzocaine (Throat Lozenge, Medicated Lozenge) 1 lozenge MUCOUS MEM Q1H PRN PRN Reason: Sore Throat Last Admin: 09/01/24 06:09 Dose: 1 lozenge Guaifenesin/Dextromethorphan (Guaifenesin Dm 200/20/10 Ml 10 Ml Syrup) 10 ml PO Q4H PRN PRN Reason: Cough Last Admin: 08/30/24 05:47 Dose: 10 ml Levothyroxine Sodium (Levothyroxine Sodium 50 Mcg Tablet) 50 mcg PO DAILY@0600 [facility] Last Admin: 01/29/25 05:47 Dose: 50 mcg Lidocaine/Diphenhydr/Alum/Mg/Simeth (Mag&Al/Sim/Diphenhyd/Lidocaine 10 Ml Oral.Susp) 10 ml PO Q6H PRN; Protocol PRN Reason: Painful Gums Last Admin: 08/26/24 13:38 Dose: 10 ml Memantine (Memantine Hcl 5 Mg Tablet) 5 mg PO BID [facility] Last Admin: 01/29/25 08:59 Dose: 5 mg Olanzapine (Olanzapine Odt 10 Mg Tab.Rapdis) 5 mg TRANSLINGU Q6H PRN PRN Reason: Agitation Last Admin: 01/03/25 08:40 Dose: 5 mg Polyethylene Glycol (Polyethylene Glycol 3350 17 Gm Powd.Pack) 17 gm PO DAILY PRN PRN Reason: constipation Senna/Docusate Sodium (Sennosides/Docusate Sodium Tablet) 1 tab PO BID [facility] Last Admin: 01/29/25 08:59 Dose: 1 tab Vitamin D (Cholecalciferol (Vitamin D3) 25 Mcg Tablet) 50 mcg PO DAILY [facility] Last Admin: 01/29/25 08:59 Dose: 50 mcg Allergies Allergies Allergy/AdvReac Type Severity Reaction Status Date / Time meperidine (From Demerol) AdvReac Intermediate Rash Verified 08/23/24 19:34 morphine AdvReac Intermediate Rash Verified 08/23/24 19:35 Sulfa (Sulfonamide AdvReac Intermediate Rash Verified 08/23/24 19:36 Antibiotics) Assessment & Plan Assessment & Plan (1) Schizoaffective disorder: Status: Acute Code(s): F25.9 - Schizoaffective disorder, unspecified Plan Plan stable. continue current mgmt. awaiting placement. 12/10/24- no change CTP 12/11/24- patient flat but responsive- CTP 12/12: no change, continue current mgmt. 12/13: no change, denies any Sx or concerns. appears to be growing weaker due to spending so much time in bed, per OT; pt was encouraged by OT to be up and about more. 12/14: no change. continue current mgmt. 12/15 continue tx . 12/16 continue tx. 12/17: Continue current regimen and plans 12/18: Continue current regimen and plans 12/19: stable. continue current mgmt. 12/20: no change in presentation. continue current mgmt. 12/21: continues as per prior. awaiting placement. 12/22: continues as per prior. awaiting placement. 12/23 continue tx 12/24 continue tx. 12/25 ordered urologist consult for incontinence 12/27 continue tx. awaiting placement. 12/28/24: Put treatment team, patient is awaiting for placement, isolated in room, out for meals but not attended to groups today. Flat affect, mild depressed, no side effects. Continue to encourage groups and out more on the unit for activities. Patient has not seen by urologist for incontinence. 12/30/2024: No change 12/31: no changes 01/01: no changes 01/02 pt stable, awaiting placement. WIll order routine labs including cbc, cmp, TSH, 01/03 cbc unremarkable and improved, no longer showing anemia. CMP with no electrolyte imbalances. However, TSH low 0.07 on levothyroxine, hospitalist consult ordered (dose of levothyrozine adjusted). 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 01/04 continue tx. 01/05 continue tx. 01/06 continue tx. 01/07/25: flat affect, report mild depression and anxiety. Denies side effects. Denies safety concerns. Selt report slept only an hour last night. Back pain /1o but declines Tylenol. 01/08/25: No changes. Compliant with medication. No behavior. Isolated herself in room. Attempted to no groups, minimum peers and staff interaction. However pleasant upon approach 01/09 continue tx. 01/10 continue tx. 01/11 continue tx. 01/12 continue tx. 01/13 continue tx. 01/14: no change today 01/15: no change today 01/16 continue tx. 01/17 continue tx. 01/18 continue tx. 01/19 continue tx. 01/20: stable presentation. continue current mgmt. 01/21: Continue current management and treatment plan. 01/22: continue current management and treatment plan. 01/23/25: Not much change, continued to isolated herself in bed after meals. Reports attempted to 1 group this morning. Slept for 8 hours and was medication compliant. Reports feeling her toenails hurts. She let me check her feet even though say no but she given the feet to take the socks off to check on her toenails. Appear to have chronic fungal issue. Denies safety concerns. Continued to wait for placement. No for episode. Appeared to be clean. 01/24/25: Observed in the [place] with shoes on walking/pacing. Reports she went to 1 group this morning. Compliant with medication. No appetite or sleeping issues. She shares that she had 4 children living in different [place], last visit she has was a couple of weeks ago. Denies other safety concerns. Denied depression or anxiety. Self reported that she showered yesterday. Continued to encourage patient to be out more for groups. 01/26/25: Meet with patient in room, lying in bed, flat affect. Sleep and eat well. Out for meals but declined groups. Isolative, calm, pleasant and cooperative. No behavior or management issues, no safety concerns. Assisted with ADL's. 01/27/2025 Patient passive flat somewhat withdrawn spends much of her time in her room. Limited social engagement patient without complaint calm superficially pleasant. Continue discharge planning. No less restrictive placement currently available 01/28- [facility] awaiting placement- 01/29 no change Reason for continued inpatient stay Substantial Risk for: inability to function and rapid decompensation Time Spent With Patient Time: Total time managing care of this patient today ____ minutes.
[2025-01-29 20:00] VITALS: BP 108/50; RESP 16; TEMP 36.4; O2SAT 94
[2025-01-29 20:51] VITALS: PULSE 90
[2025-01-30 09:15] VITALS: BP 120/65; PULSE 76; RESP 14; TEMP 36.4; O2SAT 99
[2025-01-30] MEDS: ARIPiprazole 30 MG TABLET PO (09:29)
--- NOTE | 2025-01-30 15:07 | HO.PSYCHPN ---
Subjective Subjective Date of Service: 01/30/25 Reason For Visit: bipolar 1 disorder current or most recent epi Interim History: lying in bed in purple velour track suit. no questions or complaints. per staff, no change in presentation. Mental Status Exam Mental Status Exam Narrative: Appearance: own attire, adequate grooming and hygiene Behavior: passively cooperative Orientation: alert, grossly oriented to the encounter Attention: able to attend to a brief encounter Psychomotor Function: lying on bed Speech: paucity of speech Mood: okay Affect: diminished range Thought Process: linear Thought Content: no paranoia or delusions expressed Hallucinations: no AVH expressed delusions: none evinced Insight: impaired Judgment: impaired Impulsivity: none noted Diagnostics Vital Signs (24Hr): Vital Signs - 24 hr 01/29/25 20:00 01/29/25 20:51 01/30/25 09:15 Temperature 97.5 F 97.6 F Pulse Rate 90 76 Respiratory Rate 16 14 Blood Pressure 108/50 L 120/65 Pulse Oximetry 94 99 Oxygen Delivery Method Room Air Room Air BMI result Body Mass Index 23.5 Labs 01/03/25 07:32 01/03/25 07:32 Imaging Radiology Impressions: ITS Impressions Head CT 08/25/24 11:33 IMPRESSION: No acute intracranial abnormality. Electronically signed by: Cj Colunga MD 08/25/2024 12:12 PM EST RP KUB X-Ray 10/28/24 09:50 IMPRESSION: Abundant stool without intestinal obstruction pattern. Electronically signed by: Audie Uribe MD 10/28/2024 10:02 AM EDT RP Medications Medications Current Medications Acetaminophen (Acetaminophen 325 Mg Tablet) 325 mg PO Q6H PRN PRN Reason: Pain, Mild (Pain Scale 1-3) Aripiprazole (Aripiprazole 30 Mg Tablet) 30 mg PO DAILY [facility] Last Admin: 01/30/25 09:29 Dose: 30 mg Benzocaine (Throat Lozenge, Medicated Lozenge) 1 lozenge MUCOUS MEM Q1H PRN PRN Reason: Sore Throat Last Admin: 09/01/24 06:09 Dose: 1 lozenge Guaifenesin/Dextromethorphan (Guaifenesin Dm 200/20/10 Ml 10 Ml Syrup) 10 ml PO Q4H PRN PRN Reason: Cough Last Admin: 08/30/24 05:47 Dose: 10 ml Levothyroxine Sodium (Levothyroxine Sodium 50 Mcg Tablet) 50 mcg PO DAILY@0600 [facility] Last Admin: 01/30/25 06:33 Dose: 50 mcg Lidocaine/Diphenhydr/Alum/Mg/Simeth (Mag&Al/Sim/Diphenhyd/Lidocaine 10 Ml Oral.Susp) 10 ml PO Q6H PRN; Protocol PRN Reason: Painful Gums Last Admin: 08/26/24 13:38 Dose: 10 ml Memantine (Memantine Hcl 5 Mg Tablet) 5 mg PO BID [facility] Last Admin: 01/30/25 09:30 Dose: 5 mg Olanzapine (Olanzapine Odt 10 Mg Tab.Rapdis) 5 mg TRANSLINGU Q6H PRN PRN Reason: Agitation Last Admin: 01/03/25 08:40 Dose: 5 mg Polyethylene Glycol (Polyethylene Glycol 3350 17 Gm Powd.Pack) 17 gm PO DAILY PRN PRN Reason: constipation Senna/Docusate Sodium (Sennosides/Docusate Sodium Tablet) 1 tab PO BID [facility] Last Admin: 01/30/25 09:29 Dose: 1 tab Vitamin D (Cholecalciferol (Vitamin D3) 25 Mcg Tablet) 50 mcg PO DAILY [facility] Last Admin: 01/30/25 09:29 Dose: 50 mcg Allergies Allergies Allergy/AdvReac Type Severity Reaction Status Date / Time meperidine (From Demerol) AdvReac Intermediate Rash Verified 08/23/24 19:34 morphine AdvReac Intermediate Rash Verified 08/23/24 19:35 Sulfa (Sulfonamide AdvReac Intermediate Rash Verified 08/23/24 19:36 Antibiotics) Assessment & Plan Assessment & Plan (1) Schizoaffective disorder: Status: Acute Code(s): F25.9 - Schizoaffective disorder, unspecified Plan Plan stable. continue current mgmt. awaiting placement. 12/10/24- no change CTP 12/11/24- patient flat but responsive- CTP 12/12: no change, continue current mgmt. 12/13: no change, denies any Sx or concerns. appears to be growing weaker due to spending so much time in bed, per OT; pt was encouraged by OT to be up and about more. 12/14: no change. continue current mgmt. 12/15 continue tx . 12/16 continue tx. 12/17: Continue current regimen and plans 12/18: Continue current regimen and plans 12/19: stable. continue current mgmt. 12/20: no change in presentation. continue current mgmt. 12/21: continues as per prior. awaiting placement. 12/22: continues as per prior. awaiting placement. 12/23 continue tx 12/24 continue tx. 12/25 ordered urologist consult for incontinence 12/27 continue tx. awaiting placement. 12/28/24: Put treatment team, patient is awaiting for placement, isolated in room, out for meals but not attended to groups today. Flat affect, mild depressed, no side effects. Continue to encourage groups and out more on the unit for activities. Patient has not seen by urologist for incontinence. 12/30/2024: No change 12/31: no changes 01/01: no changes 01/02 pt stable, awaiting placement. WIll order routine labs including cbc, cmp, TSH, 01/03 cbc unremarkable and improved, no longer showing anemia. CMP with no electrolyte imbalances. However, TSH low 0.07 on levothyroxine, hospitalist consult ordered (dose of levothyrozine adjusted). 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 01/04 continue tx. 01/05 continue tx. 01/06 continue tx. 01/07/25: flat affect, report mild depression and anxiety. Denies side effects. Denies safety concerns. Selt report slept only an hour last night. Back pain 5/1o but declines Tylenol. 01/08/25: No changes. Compliant with medication. No behavior. Isolated herself in room. Attempted to no groups, minimum peers and staff interaction. However pleasant upon approach 01/09 continue tx. 01/10 continue tx. 01/11 continue tx. 01/12 continue tx. 01/13 continue tx. 01/14: no change today 01/15: no change today 01/16 continue tx. 01/17 continue tx. 01/18 continue tx. 01/19 continue tx. 01/20: stable presentation. continue current mgmt. 01/21: Continue current management and treatment plan. 01/22: continue current management and treatment plan. 01/23/25: Not much change, continued to isolated herself in bed after meals. Reports attempted to 1 group this morning. Slept for 8 hours and was medication compliant. Reports feeling her toenails hurts. She let me check her feet even though say no but she given the feet to take the socks off to check on her toenails. Appear to have chronic fungal issue. Denies safety concerns. Continued to wait for placement. No for episode. Appeared to be clean. 01/24/25: Observed in the [place] with shoes on walking/pacing. Reports she went to 1 group this morning. Compliant with medication. No appetite or sleeping issues. She shares that she had 4 children living in different [place], last visit she has was a couple of weeks ago. Denies other safety concerns. Denied depression or anxiety. Self reported that she showered yesterday. Continued to encourage patient to be out more for groups. 01/26/25: Meet with patient in room, lying in bed, flat affect. Sleep and eat well. Out for meals but declined groups. Isolative, calm, pleasant and cooperative. No behavior or management issues, no safety concerns. Assisted with ADL's. 01/27/2025 Patient passive flat somewhat withdrawn spends much of her time in her room. Limited social engagement patient without complaint calm superficially pleasant. Continue discharge planning. No less restrictive placement currently available 01/28- CTP awaiting placement- 01/29 no change 01/30: no change in presentation or plan. awaiting placement. Reason for continued inpatient stay Substantial Risk for: inability to function Time Spent With Patient Time: Total time managing care of this patient today ____ minutes.
[2025-01-30 19:44] VITALS: BP 113/56; PULSE 67; RESP 18; TEMP 36.8; O2SAT 96
[2025-01-31 08:00] VITALS: BP 115/58; PULSE 84; RESP 14; TEMP 36.4; O2SAT 95
[2025-01-31] MEDS: ARIPiprazole 30 MG TABLET PO (09:22)
--- NOTE | 2025-01-31 15:09 | P.PNPSI_ITS ---
Subjective Subjective Date of Service: 01/31/25 Reason For Visit: bipolar 1 disorder current or most recent epi Interim History: no change in presentation. no complaints or requests. Mental Status Exam Mental Status Exam Narrative: Appearance: own attire, adequate grooming and hygiene Behavior: passively cooperative Orientation: alert, grossly oriented to the encounter Attention: able to attend to a brief encounter Psychomotor Function: lying on bed Speech: paucity of speech Mood: fine Affect: diminished range Thought Process: linear Thought Content: no paranoia or delusions expressed Hallucinations: no AVH expressed delusions: none evinced Insight: impaired Judgment: impaired Impulsivity: none noted Diagnostics Vital Signs (24Hr): Vital Signs - 24 hr 01/30/25 19:44 01/31/25 08:00 Temperature 98.3 F 97.5 F Pulse Rate 67 84 Respiratory Rate 18 14 Blood Pressure 113/56 L 115/58 L Pulse Oximetry 96 95 Oxygen Delivery Method Room Air Room Air BMI result Body Mass Index 23.5 Labs 01/03/25 07:32 01/03/25 07:32 Imaging Radiology Impressions: ITS Impressions Head CT 08/25/24 11:33 IMPRESSION: No acute intracranial abnormality. Electronically signed by: Cj Colunga MD 08/25/2024 12:12 PM EST RP KUB X-Ray 10/28/24 09:50 IMPRESSION: Abundant stool without intestinal obstruction pattern. Electronically signed by: Audie Uribe MD 10/28/2024 10:02 AM EDT RP Medications Medications Current Medications Acetaminophen (Acetaminophen 325 Mg Tablet) 325 mg PO Q6H PRN PRN Reason: Pain, Mild (Pain Scale 1-3) Aripiprazole (Aripiprazole 30 Mg Tablet) 30 mg PO DAILY [facility] Last Admin: 01/31/25 09:22 Dose: 30 mg Benzocaine (Throat Lozenge, Medicated Lozenge) 1 lozenge MUCOUS MEM Q1H PRN PRN Reason: Sore Throat Last Admin: 09/01/24 06:09 Dose: 1 lozenge Guaifenesin/Dextromethorphan (Guaifenesin Dm 200/20/10 Ml 10 Ml Syrup) 10 ml PO Q4H PRN PRN Reason: Cough Last Admin: 08/30/24 05:47 Dose: 10 ml Levothyroxine Sodium (Levothyroxine Sodium 50 Mcg Tablet) 50 mcg PO DAILY@0600 [facility] Last Admin: 01/31/25 05:16 Dose: 50 mcg Lidocaine/Diphenhydr/Alum/Mg/Simeth (Mag&Al/Sim/Diphenhyd/Lidocaine 10 Ml Oral.Susp) 10 ml PO Q6H PRN; Protocol PRN Reason: Painful Gums Last Admin: 08/26/24 13:38 Dose: 10 ml Memantine (Memantine Hcl 5 Mg Tablet) 5 mg PO BID [facility] Last Admin: 01/31/25 09:22 Dose: 5 mg Olanzapine (Olanzapine Odt 10 Mg Tab.Rapdis) 5 mg TRANSLINGU Q6H PRN PRN Reason: Agitation Last Admin: 01/03/25 08:40 Dose: 5 mg Polyethylene Glycol (Polyethylene Glycol 3350 17 Gm Powd.Pack) 17 gm PO DAILY PRN PRN Reason: constipation Senna/Docusate Sodium (Sennosides/Docusate Sodium Tablet) 1 tab PO BID [facility] Last Admin: 01/31/25 09:21 Dose: 1 tab Vitamin D (Cholecalciferol (Vitamin D3) 25 Mcg Tablet) 50 mcg PO DAILY [facility] Last Admin: 01/31/25 09:22 Dose: 50 mcg Allergies Allergies Allergy/AdvReac Type Severity Reaction Status Date / Time meperidine (From Demerol) AdvReac Intermediate Rash Verified 08/23/24 19:34 morphine AdvReac Intermediate Rash Verified 08/23/24 19:35 Sulfa (Sulfonamide AdvReac Intermediate Rash Verified 08/23/24 19:36 Antibiotics) Assessment & Plan Assessment & Plan (1) Schizoaffective disorder: Status: Acute Code(s): F25.9 - Schizoaffective disorder, unspecified Plan Plan stable. continue current mgmt. awaiting placement. 12/10/24- no change CTP 12/11/24- patient flat but responsive- CTP 12/12: no change, continue current mgmt. 12/13: no change, denies any Sx or concerns. appears to be growing weaker due to spending so much time in bed, per OT; pt was encouraged by OT to be up and about more. 12/14: no change. continue current mgmt. 12/15 continue tx . 12/16 continue tx. 12/17: Continue current regimen and plans 12/18: Continue current regimen and plans 12/19: stable. continue current mgmt. 12/20: no change in presentation. continue current mgmt. 12/21: continues as per prior. awaiting placement. 12/22: continues as per prior. awaiting placement. 12/23 continue tx 12/24 continue tx. 12/25 ordered urologist consult for incontinence 12/27 continue tx. awaiting placement. 12/28/24: Put treatment team, patient is awaiting for placement, isolated in room, out for meals but not attended to groups today. Flat affect, mild depressed, no side effects. Continue to encourage groups and out more on the unit for activities. Patient has not seen by urologist for incontinence. 12/30/2024: No change 12/31: no changes 01/01: no changes 01/02 pt stable, awaiting placement. WIll order routine labs including cbc, cmp, TSH, 01/03 cbc unremarkable and improved, no longer showing anemia. CMP with no electrolyte imbalances. However, TSH low 0.07 on levothyroxine, hospitalist consult ordered (dose of levothyrozine adjusted). 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 01/04 continue tx. 01/05 continue tx. 01/06 continue tx. 01/07/25: flat affect, report mild depression and anxiety. Denies side effects. Denies safety concerns. Selt report slept only an hour last night. Back pain 5/1o but declines Tylenol. 01/08/25: No changes. Compliant with medication. No behavior. Isolated herself in room. Attempted to no groups, minimum peers and staff interaction. However pleasant upon approach 01/09 continue tx. 01/10 continue tx. 01/11 continue tx. 01/12 continue tx. 01/13 continue tx. 01/14: no change today 01/15: no change today 01/16 continue tx. 01/17 continue tx. 01/18 continue tx. 01/19 continue tx. 01/20: stable presentation. continue current mgmt. 01/21: Continue current management and treatment plan. 01/22: continue current management and treatment plan. 01/23/25: Not much change, continued to isolated herself in bed after meals. Reports attempted to 1 group this morning. Slept for 8 hours and was medication compliant. Reports feeling her toenails hurts. She let me check her feet even though say no but she given the feet to take the socks off to check on her toenails. Appear to have chronic fungal issue. Denies safety concerns. Continued to wait for placement. No for episode. Appeared to be clean. 01/24/25: Observed in the [place] with shoes on walking/pacing. Reports she went to 1 group this morning. Compliant with medication. No appetite or sleeping issues. She shares that she had 4 children living in different [place], last visit she has was a couple of weeks ago. Denies other safety concerns. Denied depression or anxiety. Self reported that she showered yesterday. Continued to encourage patient to be out more for groups. 01/26/25: Meet with patient in room, lying in bed, flat affect. Sleep and eat well. Out for meals but declined groups. Isolative, calm, pleasant and cooperative. No behavior or management issues, no safety concerns. Assisted with ADL's. 01/27/2025 Patient passive flat somewhat withdrawn spends much of her time in her room. Limited social engagement patient without complaint calm superficially pleasant. Continue discharge planning. No less restrictive placement currently available 01/28- CTP awaiting placement- 01/29 no change 01/30: no change in presentation or plan. awaiting placement. 01/31: as for yesterday. Reason for continued inpatient stay Substantial Risk for: inability to function Time Spent With Patient Time: Total time managing care of this patient today ____ minutes.
[2025-01-31 19:56] VITALS: BP 112/54; PULSE 69; RESP 16; TEMP 35.8; O2SAT 96
[2025-02-01 08:45] VITALS: BP 122/56; PULSE 81; RESP 16; TEMP 35.8; O2SAT 98
[2025-02-01] MEDS: ARIPiprazole 30 MG TABLET PO (08:48)
[2025-02-01 19:43] VITALS: BP 111/59; PULSE 68; RESP 16; TEMP 36.1; O2SAT 96
--- NOTE | 2025-02-01 21:32 | HO.PSYCHPN ---
Subjective Subjective Date of Service: 02/01/25 Reason For Visit: bipolar 1 disorder current or most recent epi Subjective Notes: Conditional Voluntary Healthcare Proxy: Yes Interim History: Pt slept through the night. Denies any concerns. No SI/HI. No overt psychosis or delusions. taking medications as prescribed. Medication Compliance: Yes Review of Systems Review of Systems Negative except for what is noted in the HPI. Denies pain. Yes all other systems are reviewed and are negative Mental Status Exam Mental Status Exam Narrative: Appearance: own attire, adequate grooming and hygiene Behavior: passively cooperative Orientation: alert, grossly oriented to the encounter Attention: able to attend to a brief encounter Psychomotor Function: lying on bed Speech: paucity of speech Mood: fine Affect: diminished range Thought Process: linear Thought Content: no paranoia or delusions expressed Hallucinations: no AVH expressed delusions: none evinced Insight: impaired Judgment: impaired Impulsivity: none noted Diagnostics Vital Signs (24Hr): Vital Signs - 24 hr 02/01/25 08:45 02/01/25 19:43 Temperature 96.4 F L 97 F Pulse Rate 81 68 Respiratory Rate 16 16 Blood Pressure 122/56 L 111/59 L Pulse Oximetry 98 96 Oxygen Delivery Method Room Air Room Air BMI result Body Mass Index 23.5 Labs 01/03/25 07:32 01/03/25 07:32 Imaging Radiology Impressions: ITS Impressions Head CT 08/25/24 11:33 IMPRESSION: No acute intracranial abnormality. Electronically signed by: Cj Colunga MD 08/25/2024 12:12 PM EST RP KUB X-Ray 10/28/24 09:50 IMPRESSION: Abundant stool without intestinal obstruction pattern. Electronically signed by: Audie Uribe MD 10/28/2024 10:02 AM EDT RP Medications Medications Current Medications Acetaminophen (Acetaminophen 325 Mg Tablet) 325 mg PO Q6H PRN PRN Reason: Pain, Mild (Pain Scale 1-3) Aripiprazole (Aripiprazole 30 Mg Tablet) 30 mg PO DAILY [facility] Last Admin: 02/01/25 08:48 Dose: 30 mg Benzocaine (Throat Lozenge, Medicated Lozenge) 1 lozenge MUCOUS MEM Q1H PRN PRN Reason: Sore Throat Last Admin: 09/01/24 06:09 Dose: 1 lozenge Guaifenesin/Dextromethorphan (Guaifenesin Dm 200/20/10 Ml 10 Ml Syrup) 10 ml PO Q4H PRN PRN Reason: Cough Last Admin: 08/30/24 05:47 Dose: 10 ml Levothyroxine Sodium (Levothyroxine Sodium 50 Mcg Tablet) 50 mcg PO DAILY@0600 [facility] Last Admin: 02/01/25 05:05 Dose: 50 mcg Lidocaine/Diphenhydr/Alum/Mg/Simeth (Mag&Al/Sim/Diphenhyd/Lidocaine 10 Ml Oral.Susp) 10 ml PO Q6H PRN; Protocol PRN Reason: Painful Gums Last Admin: 08/26/24 13:38 Dose: 10 ml Memantine (Memantine Hcl 5 Mg Tablet) 5 mg PO BID [facility] Last Admin: 02/01/25 19:49 Dose: 5 mg Olanzapine (Olanzapine Odt 10 Mg Tab.Rapdis) 5 mg TRANSLINGU Q6H PRN PRN Reason: Agitation Last Admin: 01/03/25 08:40 Dose: 5 mg Polyethylene Glycol (Polyethylene Glycol 3350 17 Gm Powd.Pack) 17 gm PO DAILY PRN PRN Reason: constipation Senna/Docusate Sodium (Sennosides/Docusate Sodium Tablet) 1 tab PO BID [facility] Last Admin: 02/01/25 19:49 Dose: 1 tab Vitamin D (Cholecalciferol (Vitamin D3) 25 Mcg Tablet) 50 mcg PO DAILY [facility] Last Admin: 02/01/25 08:48 Dose: 50 mcg Allergies Allergies Allergy/AdvReac Type Severity Reaction Status Date / Time meperidine (From Demerol) AdvReac Intermediate Rash Verified 08/23/24 19:34 morphine AdvReac Intermediate Rash Verified 08/23/24 19:35 Sulfa (Sulfonamide AdvReac Intermediate Rash Verified 08/23/24 19:36 Antibiotics) Assessment & Plan Assessment & Plan (1) Schizoaffective disorder: Status: Acute Code(s): F25.9 - Schizoaffective disorder, unspecified Plan Plan stable. continue current mgmt. awaiting placement. 12/10/24- no change CTP 12/11/24- patient flat but responsive- CTP 12/12: no change, continue current mgmt. 12/13: no change, denies any Sx or concerns. appears to be growing weaker due to spending so much time in bed, per OT; pt was encouraged by OT to be up and about more. 12/14: no change. continue current mgmt. 12/15 continue tx . 12/16 continue tx. 12/17: Continue current regimen and plans 12/18: Continue current regimen and plans 12/19: stable. continue current mgmt. 12/20: no change in presentation. continue current mgmt. 12/21: continues as per prior. awaiting placement. 12/22: continues as per prior. awaiting placement. 12/23 continue tx 12/24 continue tx. 12/25 ordered urologist consult for incontinence 12/27 continue tx. awaiting placement. 12/28/24: Put treatment team, patient is awaiting for placement, isolated in room, out for meals but not attended to groups today. Flat affect, mild depressed, no side effects. Continue to encourage groups and out more on the unit for activities. Patient has not seen by urologist for incontinence. 12/30/2024: No change 12/31: no changes 01/01: no changes 01/02 pt stable, awaiting placement. WIll order routine labs including cbc, cmp, TSH, 01/03 cbc unremarkable and improved, no longer showing anemia. CMP with no electrolyte imbalances. However, TSH low 0.07 on levothyroxine, hospitalist consult ordered (dose of levothyrozine adjusted). 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 01/04 continue tx. 01/05 continue tx. 01/06 continue tx. 01/07/25: flat affect, report mild depression and anxiety. Denies side effects. Denies safety concerns. Selt report slept only an hour last night. Back pain 5/1o but declines Tylenol. 01/08/25: No changes. Compliant with medication. No behavior. Isolated herself in room. Attempted to no groups, minimum peers and staff interaction. However pleasant upon approach 01/09 continue tx. 01/10 continue tx. 01/11 continue tx. 01/12 continue tx. 01/13 continue tx. 01/14: no change today 01/15: no change today 01/16 continue tx. 01/17 continue tx. 01/18 continue tx. 01/19 continue tx. 01/20: stable presentation. continue current mgmt. 01/21: Continue current management and treatment plan. 01/22: continue current management and treatment plan. 01/23/25: Not much change, continued to isolated herself in bed after meals. Reports attempted to 1 group this morning. Slept for 8 hours and was medication compliant. Reports feeling her toenails hurts. She let me check her feet even though say no but she given the feet to take the socks off to check on her toenails. Appear to have chronic fungal issue. Denies safety concerns. Continued to wait for placement. No for episode. Appeared to be clean. 01/24/25: Observed in the [place] with shoes on walking/pacing. Reports she went to 1 group this morning. Compliant with medication. No appetite or sleeping issues. She shares that she had 4 children living in different [place], last visit she has was a couple of weeks ago. Denies other safety concerns. Denied depression or anxiety. Self reported that she showered yesterday. Continued to encourage patient to be out more for groups. 01/26/25: Meet with patient in room, lying in bed, flat affect. Sleep and eat well. Out for meals but declined groups. Isolative, calm, pleasant and cooperative. No behavior or management issues, no safety concerns. Assisted with ADL's. 01/27/2025 Patient passive flat somewhat withdrawn spends much of her time in her room. Limited social engagement patient without complaint calm superficially pleasant. Continue discharge planning. No less restrictive placement currently available 01/28- CTP awaiting placement- 01/29 no change 01/30: no change in presentation or plan. awaiting placement. 01/31: as for yesterday. 02/01 continue tx. Reason for continued inpatient stay Substantial Risk for: inability to function Time Spent With Patient Time: Total time managing care of this patient today ____ minutes.
[2025-02-02 08:00] VITALS: BP 113/56; PULSE 76; RESP 16; TEMP 36.1; O2SAT 98
[2025-02-02] MEDS: ARIPiprazole 30 MG TABLET PO (08:41)
--- NOTE | 2025-02-02 13:02 | HO.PSYCHPN ---
Subjective Subjective Date of Service: 02/02/25 Reason For Visit: bipolar 1 disorder current or most recent epi Interim History: lying in bed. no complaints or requests. Mental Status Exam Mental Status Exam Narrative: Appearance: own attire, adequate grooming and hygiene Behavior: passively cooperative Orientation: alert, grossly oriented to the encounter Attention: able to attend to a brief encounter Psychomotor Function: lying on bed Speech: paucity of speech Mood: fine Affect: diminished range Thought Process: linear Thought Content: no paranoia or delusions expressed Hallucinations: no AVH expressed delusions: none evinced Insight: impaired Judgment: impaired Impulsivity: none noted Diagnostics Vital Signs (24Hr): Vital Signs - 24 hr 02/01/25 19:43 02/02/25 08:00 Temperature 97 F 97 F Pulse Rate 68 76 Respiratory Rate 16 16 Blood Pressure 111/59 L 113/56 L Pulse Oximetry 96 98 Oxygen Delivery Method Room Air Room Air BMI result Body Mass Index 23.5 Labs 01/03/25 07:32 01/03/25 07:32 Imaging Radiology Impressions: ITS Impressions Head CT 08/25/24 11:33 IMPRESSION: No acute intracranial abnormality. Electronically signed by: Cj Colunga MD 08/25/2024 12:12 PM EST RP KUB X-Ray 10/28/24 09:50 IMPRESSION: Abundant stool without intestinal obstruction pattern. Electronically signed by: Audie Uribe MD 10/28/2024 10:02 AM EDT RP Medications Medications Current Medications Acetaminophen (Acetaminophen 325 Mg Tablet) 325 mg PO Q6H PRN PRN Reason: Pain, Mild (Pain Scale 1-3) Aripiprazole (Aripiprazole 30 Mg Tablet) 30 mg PO DAILY [facility] Last Admin: 02/02/25 08:41 Dose: 30 mg Benzocaine (Throat Lozenge, Medicated Lozenge) 1 lozenge MUCOUS MEM Q1H PRN PRN Reason: Sore Throat Last Admin: 09/01/24 06:09 Dose: 1 lozenge Guaifenesin/Dextromethorphan (Guaifenesin Dm 200/20/10 Ml 10 Ml Syrup) 10 ml PO Q4H PRN PRN Reason: Cough Last Admin: 08/30/24 05:47 Dose: 10 ml Levothyroxine Sodium (Levothyroxine Sodium 50 Mcg Tablet) 50 mcg PO DAILY@0600 [facility] Last Admin: 02/02/25 05:08 Dose: 50 mcg Lidocaine/Diphenhydr/Alum/Mg/Simeth (Mag&Al/Sim/Diphenhyd/Lidocaine 10 Ml Oral.Susp) 10 ml PO Q6H PRN; Protocol PRN Reason: Painful Gums Last Admin: 08/26/24 13:38 Dose: 10 ml Memantine (Memantine Hcl 5 Mg Tablet) 5 mg PO BID [facility] Last Admin: 02/02/25 08:40 Dose: 5 mg Olanzapine (Olanzapine Odt 10 Mg Tab.Rapdis) 5 mg TRANSLINGU Q6H PRN PRN Reason: Agitation Last Admin: 01/03/25 08:40 Dose: 5 mg Polyethylene Glycol (Polyethylene Glycol 3350 17 Gm Powd.Pack) 17 gm PO DAILY PRN PRN Reason: constipation Senna/Docusate Sodium (Sennosides/Docusate Sodium Tablet) 1 tab PO BID [facility] Last Admin: 02/02/25 08:40 Dose: 1 tab Vitamin D (Cholecalciferol (Vitamin D3) 25 Mcg Tablet) 50 mcg PO DAILY [facility] Last Admin: 02/02/25 08:40 Dose: 50 mcg Allergies Allergies Allergy/AdvReac Type Severity Reaction Status Date / Time meperidine (From Demerol) AdvReac Intermediate Rash Verified 08/23/24 19:34 morphine AdvReac Intermediate Rash Verified 08/23/24 19:35 Sulfa (Sulfonamide AdvReac Intermediate Rash Verified 08/23/24 19:36 Antibiotics) Assessment & Plan Assessment & Plan (1) Schizoaffective disorder: Status: Acute Code(s): F25.9 - Schizoaffective disorder, unspecified Plan Plan stable. continue current mgmt. awaiting placement. 12/10/24- no change CTP 12/11/24- patient flat but responsive- CTP 12/12: no change, continue current mgmt. 12/13: no change, denies any Sx or concerns. appears to be growing weaker due to spending so much time in bed, per OT; pt was encouraged by OT to be up and about more. 12/14: no change. continue current mgmt. 12/15 continue tx . 12/16 continue tx. 12/17: Continue current regimen and plans 12/18: Continue current regimen and plans 12/19: stable. continue current mgmt. 12/20: no change in presentation. continue current mgmt. 12/21: continues as per prior. awaiting placement. 12/22: continues as per prior. awaiting placement. 12/23 continue tx 12/24 continue tx. 12/25 ordered urologist consult for incontinence 12/27 continue tx. awaiting placement. 12/28/24: Put treatment team, patient is awaiting for placement, isolated in room, out for meals but not attended to groups today. Flat affect, mild depressed, no side effects. Continue to encourage groups and out more on the unit for activities. Patient has not seen by urologist for incontinence. 12/30/2024: No change 12/31: no changes 01/01: no changes 01/02 pt stable, awaiting placement. WIll order routine labs including cbc, cmp, TSH, 01/03 cbc unremarkable and improved, no longer showing anemia. CMP with no electrolyte imbalances. However, TSH low 0.07 on levothyroxine, hospitalist consult ordered (dose of levothyrozine adjusted). 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 01/04 continue tx. 01/05 continue tx. 01/06 continue tx. 01/07/25: flat affect, report mild depression and anxiety. Denies side effects. Denies safety concerns. Selt report slept only an hour last night. Back pain 5/1o but declines Tylenol. 01/08/25: No changes. Compliant with medication. No behavior. Isolated herself in room. Attempted to no groups, minimum peers and staff interaction. However pleasant upon approach 01/09 continue tx. 01/10 continue tx. 01/11 continue tx. 01/12 continue tx. 01/13 continue tx. 01/14: no change today 01/15: no change today 01/16 continue tx. 01/17 continue tx. 01/18 continue tx. 01/19 continue tx. 01/20: stable presentation. continue current mgmt. 01/21: Continue current management and treatment plan. 01/22: continue current management and treatment plan. 01/23/25: Not much change, continued to isolated herself in bed after meals. Reports attempted to 1 group this morning. Slept for 8 hours and was medication compliant. Reports feeling her toenails hurts. She let me check her feet even though say no but she given the feet to take the socks off to check on her toenails. Appear to have chronic fungal issue. Denies safety concerns. Continued to wait for placement. No for episode. Appeared to be clean. 01/24/25: Observed in the [place] with shoes on walking/pacing. Reports she went to 1 group this morning. Compliant with medication. No appetite or sleeping issues. She shares that she had 4 children living in different [place], last visit she has was a couple of weeks ago. Denies other safety concerns. Denied depression or anxiety. Self reported that she showered yesterday. Continued to encourage patient to be out more for groups. 01/26/25: Meet with patient in room, lying in bed, flat affect. Sleep and eat well. Out for meals but declined groups. Isolative, calm, pleasant and cooperative. No behavior or management issues, no safety concerns. Assisted with ADL's. 01/27/2025 Patient passive flat somewhat withdrawn spends much of her time in her room. Limited social engagement patient without complaint calm superficially pleasant. Continue discharge planning. No less restrictive placement currently available 01/28- CTP awaiting placement- 01/29 no change 01/30: no change in presentation or plan. awaiting placement. 01/31: as for yesterday. 02/02: stable presentation. continue current mgmt. Reason for continued inpatient stay Substantial Risk for: inability to function Time Spent With Patient Time: Total time managing care of this patient today ____ minutes.
[2025-02-02 15:29] VITALS: BMI 23.9
[2025-02-02 19:47] VITALS: BP 125/55; PULSE 82; RESP 16; TEMP 36; O2SAT 96
[2025-02-03 08:15] VITALS: BP 125/58; PULSE 68; RESP 16; TEMP 36.4; O2SAT 100
[2025-02-03] MEDS: ARIPiprazole 30 MG TABLET PO (11:00)
--- NOTE | 2025-02-03 14:07 | HO.PSYCHPN ---
Subjective Subjective Date of Service: 02/03/25 Reason For Visit: bipolar 1 disorder current or most recent epi Interim History: no change in presentation. on being informed of plan to send to facility in [place], pt objected, saying it is too far for her daughter to visit. per staff, no change in presentation. withdrawn. incontinent of urine. eating well. slept 7 hours. accepted to [facility] in [place]. Mental Status Exam Mental Status Exam Narrative: Appearance: own attire, adequate grooming and hygiene Behavior: passively cooperative Orientation: alert, grossly oriented to the encounter Attention: able to attend to a brief encounter Psychomotor Function: lying on bed Speech: paucity of speech Mood: good Affect: diminished range Thought Process: linear Thought Content: no paranoia or delusions expressed Hallucinations: no AVH expressed delusions: none evinced Insight: impaired Judgment: impaired Impulsivity: none noted Diagnostics Vital Signs (24Hr): Vital Signs - 24 hr 02/02/25 19:47 02/03/25 08:15 Temperature 96.8 F 97.6 F Pulse Rate 82 68 Respiratory Rate 16 16 Blood Pressure 125/55 L 125/58 L Pulse Oximetry 96 100 Oxygen Delivery Method Room Air Room Air BMI result Body Mass Index 23.9 Labs 01/03/25 07:32 01/03/25 07:32 Imaging Radiology Impressions: ITS Impressions Head CT 08/25/24 11:33 IMPRESSION: No acute intracranial abnormality. Electronically signed by: Cj Colunga MD 08/25/2024 12:12 PM EST RP KUB X-Ray 10/28/24 09:50 IMPRESSION: Abundant stool without intestinal obstruction pattern. Electronically signed by: Audie Uribe MD 10/28/2024 10:02 AM EDT RP Medications Medications Current Medications Acetaminophen (Acetaminophen 325 Mg Tablet) 325 mg PO Q6H PRN PRN Reason: Pain, Mild (Pain Scale 1-3) Aripiprazole (Aripiprazole 30 Mg Tablet) 30 mg PO DAILY [facility] Last Admin: 02/03/25 11:00 Dose: 30 mg Benzocaine (Throat Lozenge, Medicated Lozenge) 1 lozenge MUCOUS MEM Q1H PRN PRN Reason: Sore Throat Last Admin: 09/01/24 06:09 Dose: 1 lozenge Guaifenesin/Dextromethorphan (Guaifenesin Dm 200/20/10 Ml 10 Ml Syrup) 10 ml PO Q4H PRN PRN Reason: Cough Last Admin: 08/30/24 05:47 Dose: 10 ml Levothyroxine Sodium (Levothyroxine Sodium 50 Mcg Tablet) 50 mcg PO DAILY@0600 [facility] Last Admin: 02/03/25 05:08 Dose: 50 mcg Lidocaine/Diphenhydr/Alum/Mg/Simeth (Mag&Al/Sim/Diphenhyd/Lidocaine 10 Ml Oral.Susp) 10 ml PO Q6H PRN; Protocol PRN Reason: Painful Gums Last Admin: 08/26/24 13:38 Dose: 10 ml Memantine (Memantine Hcl 5 Mg Tablet) 5 mg PO BID [facility] Last Admin: 02/03/25 11:00 Dose: 5 mg Olanzapine (Olanzapine Odt 10 Mg Tab.Rapdis) 5 mg TRANSLINGU Q6H PRN PRN Reason: Agitation Last Admin: 01/03/25 08:40 Dose: 5 mg Polyethylene Glycol (Polyethylene Glycol 3350 17 Gm Powd.Pack) 17 gm PO DAILY PRN PRN Reason: constipation Senna/Docusate Sodium (Sennosides/Docusate Sodium Tablet) 1 tab PO BID [facility] Last Admin: 02/03/25 11:00 Dose: 1 tab Vitamin D (Cholecalciferol (Vitamin D3) 25 Mcg Tablet) 50 mcg PO DAILY [facility] Last Admin: 02/03/25 11:00 Dose: 50 mcg Allergies Allergies Allergy/AdvReac Type Severity Reaction Status Date / Time meperidine (From Demerol) AdvReac Intermediate Rash Verified 08/23/24 19:34 morphine AdvReac Intermediate Rash Verified 08/23/24 19:35 Sulfa (Sulfonamide AdvReac Intermediate Rash Verified 08/23/24 19:36 Antibiotics) Assessment & Plan Assessment & Plan (1) Schizoaffective disorder: Status: Acute Code(s): F25.9 - Schizoaffective disorder, unspecified Plan Plan stable. continue current mgmt. awaiting placement. 12/10/24- no change CTP 12/11/24- patient flat but responsive- CTP 12/12: no change, continue current mgmt. 12/13: no change, denies any Sx or concerns. appears to be growing weaker due to spending so much time in bed, per OT; pt was encouraged by OT to be up and about more. 12/14: no change. continue current mgmt. 12/15 continue tx . 12/16 continue tx. 12/17: Continue current regimen and plans 12/18: Continue current regimen and plans 12/19: stable. continue current mgmt. 12/20: no change in presentation. continue current mgmt. 12/21: continues as per prior. awaiting placement. 12/22: continues as per prior. awaiting placement. 12/23 continue tx 12/24 continue tx. 12/25 ordered urologist consult for incontinence 12/27 continue tx. awaiting placement. 12/28/24: Put treatment team, patient is awaiting for placement, isolated in room, out for meals but not attended to groups today. Flat affect, mild depressed, no side effects. Continue to encourage groups and out more on the unit for activities. Patient has not seen by urologist for incontinence. 12/30/2024: No change 12/31: no changes 01/01: no changes 01/02 pt stable, awaiting placement. WIll order routine labs including cbc, cmp, TSH, 01/03 cbc unremarkable and improved, no longer showing anemia. CMP with no electrolyte imbalances. However, TSH low 0.07 on levothyroxine, hospitalist consult ordered (dose of levothyrozine adjusted). 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 01/04 continue tx. 01/05 continue tx. 01/06 continue tx. 01/07/25: flat affect, report mild depression and anxiety. Denies side effects. Denies safety concerns. Selt report slept only an hour last night. Back pain /o but declines Tylenol. 01/08/25: No changes. Compliant with medication. No behavior. Isolated herself in room. Attempted to no groups, minimum peers and staff interaction. However pleasant upon approach 01/09 continue tx. 01/10 continue tx. 01/11 continue tx. 01/12 continue tx. 01/13 continue tx. 01/14: no change today 01/15: no change today 01/16 continue tx. 01/17 continue tx. 01/18 continue tx. 01/19 continue tx. 01/20: stable presentation. continue current mgmt. 01/21: Continue current management and treatment plan. 01/22: continue current management and treatment plan. 01/23/25: Not much change, continued to isolated herself in bed after meals. Reports attempted to 1 group this morning. Slept for 8 hours and was medication compliant. Reports feeling her toenails hurts. She let me check her feet even though say no but she given the feet to take the socks off to check on her toenails. Appear to have chronic fungal issue. Denies safety concerns. Continued to wait for placement. No for episode. Appeared to be clean. 01/24/25: Observed in the [place] with shoes on walking/pacing. Reports she went to 1 group this morning. Compliant with medication. No appetite or sleeping issues. She shares that she had 4 children living in different [place], last visit she has was a couple of weeks ago. Denies other safety concerns. Denied depression or anxiety. Self reported that she showered yesterday. Continued to encourage patient to be out more for groups. 01/26/25: Meet with patient in room, lying in bed, flat affect. Sleep and eat well. Out for meals but declined groups. Isolative, calm, pleasant and cooperative. No behavior or management issues, no safety concerns. Assisted with ADL's. 01/27/2025 Patient passive flat somewhat withdrawn spends much of her time in her room. Limited social engagement patient without complaint calm superficially pleasant. Continue discharge planning. No less restrictive placement currently available 01/28- CTP awaiting placement- 01/29 no change 01/30: no change in presentation or plan. awaiting placement. 01/31: as for yesterday. 02/01 continue tx. 02/03: doesn't want to go to facility in [place]. sleeping, eating well. no change in presentation. discharge thursday? Reason for continued inpatient stay Substantial Risk for: inability to function Time Spent With Patient Time: Total time managing care of this patient today ____ minutes.
[2025-02-03 19:55] VITALS: BP 119/74; PULSE 89; RESP 16; TEMP 36; O2SAT 95
[2025-02-04 09:20] VITALS: BP 127/61; PULSE 78; RESP 16; TEMP 36.5; O2SAT 96
[2025-02-04] MEDS: ARIPiprazole 30 MG TABLET PO (09:25)
--- NOTE | 2025-02-04 12:11 | P.PNPSI_ITS ---
Subjective Subjective Date of Service: 02/04/25 Reason For Visit: bipolar 1 disorder current or most recent epi Subjective Notes: Conditional Voluntary Interim History: Patient was seen and discussed in rounds today. Records and plans were reviewed. She is a little upset about the disposition plan to [place]. Generally calm. No behavioral issues. Eating and sleeping adequately. Medication compliant. No changes were made today Review of Systems Review of Systems Yes all other systems are reviewed and are negative Mental Status Exam Mental Status Exam Narrative: In today's visit she is alert, mostly oriented. Normal speech. Some eye contact. Affect is appropriate and constricted. No acute signs of psychosis. Cognitively impaired. Judgment is impaired. No SI. Diagnostics Vital Signs (24Hr): Vital Signs - 24 hr 02/03/25 19:55 02/04/25 09:20 Temperature 96.8 F 97.7 F Pulse Rate 89 78 Respiratory Rate 16 16 Blood Pressure 119/74 127/61 Pulse Oximetry 95 96 Oxygen Delivery Method Room Air Room Air BMI result Body Mass Index 23.9 Labs 01/03/25 07:32 01/03/25 07:32 Imaging Radiology Impressions: ITS Impressions Head CT 08/25/24 11:33 IMPRESSION: No acute intracranial abnormality. Electronically signed by: Cj Colunga MD 08/25/2024 12:12 PM EST RP KUB X-Ray 10/28/24 09:50 IMPRESSION: Abundant stool without intestinal obstruction pattern. Electronically signed by: Audie Uribe MD 10/28/2024 10:02 AM EDT RP Medications Medications Current Medications Acetaminophen (Acetaminophen 325 Mg Tablet) 325 mg PO Q6H PRN PRN Reason: Pain, Mild (Pain Scale 1-3) Aripiprazole (Aripiprazole 30 Mg Tablet) 30 mg PO DAILY [facility] Last Admin: 02/04/25 09:25 Dose: 30 mg Benzocaine (Throat Lozenge, Medicated Lozenge) 1 lozenge MUCOUS MEM Q1H PRN PRN Reason: Sore Throat Last Admin: 09/01/24 06:09 Dose: 1 lozenge Guaifenesin/Dextromethorphan (Guaifenesin Dm 200/20/10 Ml 10 Ml Syrup) 10 ml PO Q4H PRN PRN Reason: Cough Last Admin: 08/30/24 05:47 Dose: 10 ml Levothyroxine Sodium (Levothyroxine Sodium 50 Mcg Tablet) 50 mcg PO DAILY@0600 [facility] Last Admin: 02/04/25 05:13 Dose: 50 mcg Lidocaine/Diphenhydr/Alum/Mg/Simeth (Mag&Al/Sim/Diphenhyd/Lidocaine 10 Ml Oral.Susp) 10 ml PO Q6H PRN; Protocol PRN Reason: Painful Gums Last Admin: 08/26/24 13:38 Dose: 10 ml Memantine (Memantine Hcl 5 Mg Tablet) 5 mg PO BID [facility] Last Admin: 02/04/25 09:26 Dose: 5 mg Olanzapine (Olanzapine Odt 10 Mg Tab.Rapdis) 5 mg TRANSLINGU Q6H PRN PRN Reason: Agitation Last Admin: 01/03/25 08:40 Dose: 5 mg Polyethylene Glycol (Polyethylene Glycol 3350 17 Gm Powd.Pack) 17 gm PO DAILY PRN PRN Reason: constipation Senna/Docusate Sodium (Sennosides/Docusate Sodium Tablet) 1 tab PO BID [facility] Last Admin: 02/04/25 09:25 Dose: 1 tab Vitamin D (Cholecalciferol (Vitamin D3) 25 Mcg Tablet) 50 mcg PO DAILY [facility] Last Admin: 02/04/25 09:24 Dose: 50 mcg Allergies Allergies Allergy/AdvReac Type Severity Reaction Status Date / Time meperidine (From Demerol) AdvReac Intermediate Rash Verified 08/23/24 19:34 morphine AdvReac Intermediate Rash Verified 08/23/24 19:35 Sulfa (Sulfonamide AdvReac Intermediate Rash Verified 08/23/24 19:36 Antibiotics) Assessment & Plan Assessment & Plan (1) Schizoaffective disorder: Status: Acute Code(s): F25.9 - Schizoaffective disorder, unspecified Plan Plan stable. continue current mgmt. awaiting placement. 12/10/24- no change CTP 12/11/24- patient flat but responsive- CTP 12/12: no change, continue current mgmt. 12/13: no change, denies any Sx or concerns. appears to be growing weaker due to spending so much time in bed, per OT; pt was encouraged by OT to be up and about more. 12/14: no change. continue current mgmt. 12/15 continue tx . 12/16 continue tx. 12/17: Continue current regimen and plans 12/18: Continue current regimen and plans 12/19: stable. continue current mgmt. 12/20: no change in presentation. continue current mgmt. 12/21: continues as per prior. awaiting placement. 12/22: continues as per prior. awaiting placement. 12/23 continue tx 12/24 continue tx. 12/25 ordered urologist consult for incontinence 12/27 continue tx. awaiting placement. 12/28/24: Put treatment team, patient is awaiting for placement, isolated in room, out for meals but not attended to groups today. Flat affect, mild depressed, no side effects. Continue to encourage groups and out more on the unit for activities. Patient has not seen by urologist for incontinence. 12/30/2024: No change 12/31: no changes 01/01: no changes 01/02 pt stable, awaiting placement. WIll order routine labs including cbc, cmp, TSH, 01/03 cbc unremarkable and improved, no longer showing anemia. CMP with no electrolyte imbalances. However, TSH low 0.07 on levothyroxine, hospitalist consult ordered (dose of levothyrozine adjusted). 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 01/04 continue tx. 01/05 continue tx. 01/06 continue tx. 01/07/25: flat affect, report mild depression and anxiety. Denies side effects. Denies safety concerns. Selt report slept only an hour last night. Back pain 5/1o but declines Tylenol. 01/08/25: No changes. Compliant with medication. No behavior. Isolated herself in room. Attempted to no groups, minimum peers and staff interaction. However pleasant upon approach 01/09 continue tx. 01/10 continue tx. 01/11 continue tx. 01/12 continue tx. 01/13 continue tx. 01/14: no change today 01/15: no change today 01/16 continue tx. 01/17 continue tx. 01/18 continue tx. 01/19 continue tx. 01/20: stable presentation. continue current mgmt. 01/21: Continue current management and treatment plan. 01/22: continue current management and treatment plan. 01/23/25: Not much change, continued to isolated herself in bed after meals. Reports attempted to 1 group this morning. Slept for 8 hours and was medication compliant. Reports feeling her toenails hurts. She let me check her feet even though say no but she given the feet to take the socks off to check on her toenails. Appear to have chronic fungal issue. Denies safety concerns. Continued to wait for placement. No for episode. Appeared to be clean. 01/24/25: Observed in the [place] with shoes on walking/pacing. Reports she went to 1 group this morning. Compliant with medication. No appetite or sleeping issues. She shares that she had 4 children living in different [place], last visit she has was a couple of weeks ago. Denies other safety concerns. Denied depression or anxiety. Self reported that she showered yesterday. Continued to encourage patient to be out more for groups. 01/26/25: Meet with patient in room, lying in bed, flat affect. Sleep and eat well. Out for meals but declined groups. Isolative, calm, pleasant and cooperative. No behavior or management issues, no safety concerns. Assisted with ADL's. 01/27/2025 Patient passive flat somewhat withdrawn spends much of her time in her room. Limited social engagement patient without complaint calm superficially pleasant. Continue discharge planning. No less restrictive placement currently available 01/28- CTP awaiting placement- 01/29 no change 01/30: no change in presentation or plan. awaiting placement. 01/31: as for yesterday. 02/01 continue tx. 02/03: doesn't want to go to facility in [place]. sleeping, eating well. no change in presentation. discharge thursday? 02/04: Continue current regimen and plans Reason for continued inpatient stay Substantial Risk for: inability to function Time Spent With Patient Time: Total time managing care of this patient today ____ minutes.
[2025-02-04 20:00] VITALS: BP 103/60; PULSE 77; RESP 18; TEMP 36.4; O2SAT 96
[2025-02-05 08:00] VITALS: BP 120/77; PULSE 97; RESP 16; TEMP 36.7; O2SAT 95
[2025-02-05] MEDS: ARIPiprazole 30 MG TABLET PO (09:13)
--- NOTE | 2025-02-05 10:55 | HO.PSYCHPN ---
Subjective Subjective Date of Service: 02/05/25 Reason For Visit: bipolar 1 disorder current or most recent epi Subjective Notes: Conditional Voluntary Interim History: Patient was seen and discussed in rounds today. Records and plans were reviewed. She is a little upset about the disposition plan to [place]. Generally calm. Continues to complain of prolonged generalized pain with no benefit from Tylenol which I will discontinue and we will try her on ibuprofen 200 mg p.r.n.. Eating and sleeping adequately. No behavioral issues. No other changes were made Review of Systems Review of Systems Generalized pain Yes all other systems are reviewed and are negative Mental Status Exam Mental Status Exam Narrative: In today's visit she is alert, mostly oriented. Normal speech. Some eye contact. Affect is appropriate and constricted. No acute signs of psychosis. Cognitively impaired. Judgment is impaired. No SI. Diagnostics Vital Signs (24Hr): Vital Signs - 24 hr 02/04/25 20:00 02/05/25 08:00 Temperature 97.5 F 98.1 F Pulse Rate 77 97 Respiratory Rate 18 16 Blood Pressure 103/60 120/77 Pulse Oximetry 96 95 Oxygen Delivery Method Room Air Room Air BMI result Body Mass Index 23.9 Labs 01/03/25 07:32 01/03/25 07:32 Imaging Radiology Impressions: ITS Impressions Head CT 08/25/24 11:33 IMPRESSION: No acute intracranial abnormality. Electronically signed by: Cj Colunga MD 08/25/2024 12:12 PM EST RP KUB X-Ray 10/28/24 09:50 IMPRESSION: Abundant stool without intestinal obstruction pattern. Electronically signed by: Audie Uribe MD 10/28/2024 10:02 AM EDT RP Medications Medications Current Medications Acetaminophen (Acetaminophen 325 Mg Tablet) 325 mg PO Q6H PRN PRN Reason: Pain, Mild (Pain Scale 1-3) Aripiprazole (Aripiprazole 30 Mg Tablet) 30 mg PO DAILY [facility] Last Admin: 02/05/25 09:13 Dose: 30 mg Benzocaine (Throat Lozenge, Medicated Lozenge) 1 lozenge MUCOUS MEM Q1H PRN PRN Reason: Sore Throat Last Admin: 09/01/24 06:09 Dose: 1 lozenge Guaifenesin/Dextromethorphan (Guaifenesin Dm 200/20/10 Ml 10 Ml Syrup) 10 ml PO Q4H PRN PRN Reason: Cough Last Admin: 08/30/24 05:47 Dose: 10 ml Levothyroxine Sodium (Levothyroxine Sodium 50 Mcg Tablet) 50 mcg PO DAILY@0600 [facility] Last Admin: 02/05/25 06:49 Dose: 50 mcg Lidocaine/Diphenhydr/Alum/Mg/Simeth (Mag&Al/Sim/Diphenhyd/Lidocaine 10 Ml Oral.Susp) 10 ml PO Q6H PRN; Protocol PRN Reason: Painful Gums Last Admin: 08/26/24 13:38 Dose: 10 ml Memantine (Memantine Hcl 5 Mg Tablet) 5 mg PO BID [facility] Last Admin: 02/05/25 09:12 Dose: 5 mg Olanzapine (Olanzapine Odt 10 Mg Tab.Rapdis) 5 mg TRANSLINGU Q6H PRN PRN Reason: Agitation Last Admin: 01/03/25 08:40 Dose: 5 mg Polyethylene Glycol (Polyethylene Glycol 3350 17 Gm Powd.Pack) 17 gm PO DAILY PRN PRN Reason: constipation Senna/Docusate Sodium (Sennosides/Docusate Sodium Tablet) 1 tab PO BID [facility] Last Admin: 02/05/25 09:12 Dose: 1 tab Vitamin D (Cholecalciferol (Vitamin D3) 25 Mcg Tablet) 50 mcg PO DAILY [facility] Last Admin: 02/05/25 09:12 Dose: 50 mcg Allergies Allergies Allergy/AdvReac Type Severity Reaction Status Date / Time meperidine (From Demerol) AdvReac Intermediate Rash Verified 08/23/24 19:34 morphine AdvReac Intermediate Rash Verified 08/23/24 19:35 Sulfa (Sulfonamide AdvReac Intermediate Rash Verified 08/23/24 19:36 Antibiotics) Assessment & Plan Assessment & Plan (1) Schizoaffective disorder: Status: Acute Code(s): F25.9 - Schizoaffective disorder, unspecified Plan Plan stable. continue current mgmt. awaiting placement. 12/10/24- no change CTP 12/11/24- patient flat but responsive- CTP 12/12: no change, continue current mgmt. 12/13: no change, denies any Sx or concerns. appears to be growing weaker due to spending so much time in bed, per OT; pt was encouraged by OT to be up and about more. 12/14: no change. continue current mgmt. 12/15 continue tx . 12/16 continue tx. 12/17: Continue current regimen and plans 12/18: Continue current regimen and plans 12/19: stable. continue current mgmt. 12/20: no change in presentation. continue current mgmt. 12/21: continues as per prior. awaiting placement. 12/22: continues as per prior. awaiting placement. 12/23 continue tx 12/24 continue tx. 12/25 ordered urologist consult for incontinence 12/27 continue tx. awaiting placement. 12/28/24: Put treatment team, patient is awaiting for placement, isolated in room, out for meals but not attended to groups today. Flat affect, mild depressed, no side effects. Continue to encourage groups and out more on the unit for activities. Patient has not seen by urologist for incontinence. 12/30/2024: No change 12/31: no changes 01/01: no changes 01/02 pt stable, awaiting placement. WIll order routine labs including cbc, cmp, TSH, 01/03 cbc unremarkable and improved, no longer showing anemia. CMP with no electrolyte imbalances. However, TSH low 0.07 on levothyroxine, hospitalist consult ordered (dose of levothyrozine adjusted). 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 01/04 continue tx. 01/05 continue tx. 01/06 continue tx. 01/07/25: flat affect, report mild depression and anxiety. Denies side effects. Denies safety concerns. Selt report slept only an hour last night. Back pain 5/1o but declines Tylenol. 01/08/25: No changes. Compliant with medication. No behavior. Isolated herself in room. Attempted to no groups, minimum peers and staff interaction. However pleasant upon approach 01/09 continue tx. 01/10 continue tx. 01/11 continue tx. 01/12 continue tx. 01/13 continue tx. 01/14: no change today 01/15: no change today 01/16 continue tx. 01/17 continue tx. 01/18 continue tx. 01/19 continue tx. 01/20: stable presentation. continue current mgmt. 01/21: Continue current management and treatment plan. 01/22: continue current management and treatment plan. 01/23/25: Not much change, continued to isolated herself in bed after meals. Reports attempted to 1 group this morning. Slept for 8 hours and was medication compliant. Reports feeling her toenails hurts. She let me check her feet even though say no but she given the feet to take the socks off to check on her toenails. Appear to have chronic fungal issue. Denies safety concerns. Continued to wait for placement. No for episode. Appeared to be clean. 01/24/25: Observed in the [place] with shoes on walking/pacing. Reports she went to 1 group this morning. Compliant with medication. No appetite or sleeping issues. She shares that she had 4 children living in different [place], last visit she has was a couple of weeks ago. Denies other safety concerns. Denied depression or anxiety. Self reported that she showered yesterday. Continued to encourage patient to be out more for groups. 01/26/25: Meet with patient in room, lying in bed, flat affect. Sleep and eat well. Out for meals but declined groups. Isolative, calm, pleasant and cooperative. No behavior or management issues, no safety concerns. Assisted with ADL's. 01/27/2025 Patient passive flat somewhat withdrawn spends much of her time in her room. Limited social engagement patient without complaint calm superficially pleasant. Continue discharge planning. No less restrictive placement currently available 01/28- CTP awaiting placement- 01/29 no change 01/30: no change in presentation or plan. awaiting placement. 01/31: as for yesterday. 02/01 continue tx. 02/03: doesn't want to go to facility in [place]. sleeping, eating well. no change in presentation. discharge thursday? 02/04: Continue current regimen and plans 02/05: Continue current plans and regimen. Discontinued Tylenol and started ibuprofen 200 mg p.r.n. Patient educated on: medication risk/benefits Reason for continued inpatient stay Substantial Risk for: med/psych decompensation Time Spent With Patient Time: Total time managing care of this patient today ____ minutes.
[2025-02-05 19:37] VITALS: BP 113/59; PULSE 105; RESP 15; TEMP 37.4; O2SAT 92
[2025-02-06 08:00] VITALS: BP 119/85; PULSE 84; RESP 18; TEMP 36.6; O2SAT 97
[2025-02-06] MEDS: ARIPiprazole 30 MG TABLET PO (08:36)
--- NOTE | 2025-02-06 15:17 | P.PNPSI_ITS ---
Subjective Subjective Date of Service: 02/06/25 Reason For Visit: bipolar 1 disorder current or most recent epi Interim History: stable. doesn't want to discharge to [facility]. per staff, irritable re [place]. constricted. eating OK, sleeping well. likely DC tomorrow. Mental Status Exam Mental Status Exam Narrative: Appearance: own attire, adequate grooming and hygiene Behavior: passively cooperative Orientation: alert, grossly oriented to the encounter Attention: able to attend to a brief encounter Psychomotor Function: having breakfast in milieu Speech: loud Mood: i'm not going to [place]! Affect: constricted, hyper-intense Thought Process: linear Thought Content: no paranoia or delusions expressed Hallucinations: no AVH expressed delusions: none evinced Insight: impaired Judgment: impaired Impulsivity: none noted Diagnostics Vital Signs (24Hr): Vital Signs - 24 hr 02/05/25 19:37 02/06/25 08:00 Temperature 99.3 F 97.9 F Pulse Rate 105 H 84 Respiratory Rate 15 18 Blood Pressure 113/59 L 119/85 Pulse Oximetry 92 97 Oxygen Delivery Method Room Air Room Air BMI result Body Mass Index 23.9 Labs 01/03/25 07:32 01/03/25 07:32 Imaging Radiology Impressions: ITS Impressions Head CT 08/25/24 11:33 IMPRESSION: No acute intracranial abnormality. Electronically signed by: Cj Colunga MD 08/25/2024 12:12 PM EST RP KUB X-Ray 10/28/24 09:50 IMPRESSION: Abundant stool without intestinal obstruction pattern. Electronically signed by: Audie Uribe MD 10/28/2024 10:02 AM EDT RP Medications Medications Current Medications Aripiprazole (Aripiprazole 30 Mg Tablet) 30 mg PO DAILY [facility] Last Admin: 02/06/25 08:36 Dose: 30 mg Benzocaine (Throat Lozenge, Medicated Lozenge) 1 lozenge MUCOUS MEM Q1H PRN PRN Reason: Sore Throat Last Admin: 09/01/24 06:09 Dose: 1 lozenge Guaifenesin/Dextromethorphan (Guaifenesin Dm 200/20/10 Ml 10 Ml Syrup) 10 ml PO Q4H PRN PRN Reason: Cough Last Admin: 08/30/24 05:47 Dose: 10 ml Ibuprofen (Ibuprofen 200 Mg Tablet) 200 mg PO Q6H PRN PRN Reason: Pain, Moderate(Pain Scale 4-6) Last Admin: 02/05/25 11:13 Dose: 200 mg Levothyroxine Sodium (Levothyroxine Sodium 50 Mcg Tablet) 50 mcg PO DAILY@0600 [facility] Last Admin: 02/06/25 05:07 Dose: 50 mcg Lidocaine/Diphenhydr/Alum/Mg/Simeth (Mag&Al/Sim/Diphenhyd/Lidocaine 10 Ml Oral.Susp) 10 ml PO Q6H PRN; Protocol PRN Reason: Painful Gums Last Admin: 08/26/24 13:38 Dose: 10 ml Memantine (Memantine Hcl 5 Mg Tablet) 5 mg PO BID [facility] Last Admin: 02/06/25 08:36 Dose: 5 mg Olanzapine (Olanzapine Odt 10 Mg Tab.Rapdis) 5 mg TRANSLINGU Q6H PRN PRN Reason: Agitation Last Admin: 01/03/25 08:40 Dose: 5 mg Polyethylene Glycol (Polyethylene Glycol 3350 17 Gm Powd.Pack) 17 gm PO DAILY PRN PRN Reason: constipation Senna/Docusate Sodium (Sennosides/Docusate Sodium Tablet) 1 tab PO BID [facility] Last Admin: 02/06/25 08:36 Dose: 1 tab Vitamin D (Cholecalciferol (Vitamin D3) 25 Mcg Tablet) 50 mcg PO DAILY [facility] Last Admin: 02/06/25 08:36 Dose: 50 mcg Allergies Allergies Allergy/AdvReac Type Severity Reaction Status Date / Time meperidine (From Demerol) AdvReac Intermediate Rash Verified 08/23/24 19:34 morphine AdvReac Intermediate Rash Verified 08/23/24 19:35 Sulfa (Sulfonamide AdvReac Intermediate Rash Verified 08/23/24 19:36 Antibiotics) Assessment & Plan Assessment & Plan (1) Schizoaffective disorder: Status: Acute Code(s): F25.9 - Schizoaffective disorder, unspecified Plan Plan stable. continue current mgmt. awaiting placement. 12/10/24- no change CTP 12/11/24- patient flat but responsive- CTP 12/12: no change, continue current mgmt. 12/13: no change, denies any Sx or concerns. appears to be growing weaker due to spending so much time in bed, per OT; pt was encouraged by OT to be up and about more. 12/14: no change. continue current mgmt. 12/15 continue tx . 12/16 continue tx. 12/17: Continue current regimen and plans 12/18: Continue current regimen and plans 12/19: stable. continue current mgmt. 12/20: no change in presentation. continue current mgmt. 12/21: continues as per prior. awaiting placement. 12/22: continues as per prior. awaiting placement. 12/23 continue tx 12/24 continue tx. 12/25 ordered urologist consult for incontinence 12/27 continue tx. awaiting placement. 12/28/24: Put treatment team, patient is awaiting for placement, isolated in room, out for meals but not attended to groups today. Flat affect, mild depressed, no side effects. Continue to encourage groups and out more on the unit for activities. Patient has not seen by urologist for incontinence. 12/30/2024: No change 12/31: no changes 01/01: no changes 01/02 pt stable, awaiting placement. WIll order routine labs including cbc, cmp, TSH, 01/03 cbc unremarkable and improved, no longer showing anemia. CMP with no electrolyte imbalances. However, TSH low 0.07 on levothyroxine, hospitalist consult ordered (dose of levothyrozine adjusted). 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 01/04 continue tx. 01/05 continue tx. 01/06 continue tx. 01/07/25: flat affect, report mild depression and anxiety. Denies side effects. Denies safety concerns. Selt report slept only an hour last night. Back pain /o but declines Tylenol. 01/08/25: No changes. Compliant with medication. No behavior. Isolated herself in room. Attempted to no groups, minimum peers and staff interaction. However pleasant upon approach 01/09 continue tx. 01/10 continue tx. 01/11 continue tx. 01/12 continue tx. 01/13 continue tx. 01/14: no change today 01/15: no change today 01/16 continue tx. 01/17 continue tx. 01/18 continue tx. 01/19 continue tx. 01/20: stable presentation. continue current mgmt. 01/21: Continue current management and treatment plan. 01/22: continue current management and treatment plan. 01/23/25: Not much change, continued to isolated herself in bed after meals. Reports attempted to 1 group this morning. Slept for 8 hours and was medication compliant. Reports feeling her toenails hurts. She let me check her feet even though say no but she given the feet to take the socks off to check on her toenails. Appear to have chronic fungal issue. Denies safety concerns. Continued to wait for placement. No for episode. Appeared to be clean. 01/24/25: Observed in the [place] with shoes on walking/pacing. Reports she went to 1 group this morning. Compliant with medication. No appetite or sleeping issues. She shares that she had 4 children living in different [place], last visit she has was a couple of weeks ago. Denies other safety concerns. Denied depression or anxiety. Self reported that she showered yesterday. Continued to encourage patient to be out more for groups. 01/26/25: Meet with patient in room, lying in bed, flat affect. Sleep and eat well. Out for meals but declined groups. Isolative, calm, pleasant and cooperative. No behavior or management issues, no safety concerns. Assisted with ADL's. 01/27/2025 Patient passive flat somewhat withdrawn spends much of her time in her room. Limited social engagement patient without complaint calm superficially pleasant. Continue discharge planning. No less restrictive placement currently available 01/28- [facility] awaiting placement- 01/29 no change 01/30: no change in presentation or plan. awaiting placement. 01/31: as for yesterday. 02/01 continue tx. 02/03: doesn't want to go to facility in [place]. sleeping, eating well. no change in presentation. discharge thursday? 02/04: Continue current regimen and plans 02/05: Continue current plans and regimen. Discontinued Tylenol and started ibuprofen 200 mg p.r.n. 02/06: irritable re [place]. otherwise no change. continnue current mgmt. may discharge tomorrow to [place]. Reason for continued inpatient stay Substantial Risk for: inability to function Time Spent With Patient Time: Total time managing care of this patient today __25__ minutes.
[2025-02-06 19:31] VITALS: BP 115/59; PULSE 66; RESP 16; TEMP 36.8; O2SAT 96
[2025-02-07 08:00] VITALS: BP 97/54; PULSE 63; RESP 16; TEMP 36.6; O2SAT 96
[2025-02-07] MEDS: ARIPiprazole 30 MG TABLET PO (08:37)
--- NOTE | 2025-02-07 14:45 | P.PNPSI_ITS ---
Subjective Subjective Date of Service: 02/07/25 Reason For Visit: bipolar 1 disorder current or most recent epi Interim History: no change in presentation. informed her discharge has been deferred to next week. per staff, irritable. eating well. slept. cooperative. planning to throw herself on the floor to [facility]. Mental Status Exam Mental Status Exam Narrative: Appearance: own attire, adequate grooming and hygiene Behavior: passively cooperative Orientation: alert, grossly oriented to the encounter Attention: able to attend to a brief encounter Psychomotor Function: PMR Speech: loud Mood: good Affect: constricted, hypo-intense Thought Process: linear Thought Content: no paranoia or delusions expressed Hallucinations: no AVH expressed delusions: none evinced Insight: impaired Judgment: impaired Impulsivity: none noted Diagnostics Vital Signs (24Hr): Vital Signs - 24 hr 02/06/25 19:31 02/07/25 08:00 Temperature 98.2 F 97.9 F Pulse Rate 66 63 Respiratory Rate 16 16 Blood Pressure 115/59 L 97/54 L Pulse Oximetry 96 96 Oxygen Delivery Method Room Air Room Air BMI result Body Mass Index 23.9 Labs 01/03/25 07:32 01/03/25 07:32 Imaging Radiology Impressions: ITS Impressions Head CT 08/25/24 11:33 IMPRESSION: No acute intracranial abnormality. Electronically signed by: Cj Colunga MD 08/25/2024 12:12 PM EST RP KUB X-Ray 10/28/24 09:50 IMPRESSION: Abundant stool without intestinal obstruction pattern. Electronically signed by: Audie Uribe MD 10/28/2024 10:02 AM EDT RP Medications Medications Current Medications Aripiprazole (Aripiprazole 30 Mg Tablet) 30 mg PO DAILY [facility] Last Admin: 02/07/25 08:37 Dose: 30 mg Benzocaine (Throat Lozenge, Medicated Lozenge) 1 lozenge MUCOUS MEM Q1H PRN PRN Reason: Sore Throat Last Admin: 09/01/24 06:09 Dose: 1 lozenge Guaifenesin/Dextromethorphan (Guaifenesin Dm 200/20/10 Ml 10 Ml Syrup) 10 ml PO Q4H PRN PRN Reason: Cough Last Admin: 08/30/24 05:47 Dose: 10 ml Ibuprofen (Ibuprofen 200 Mg Tablet) 200 mg PO Q6H PRN PRN Reason: Pain, Moderate(Pain Scale 4-6) Last Admin: 02/05/25 11:13 Dose: 200 mg Levothyroxine Sodium (Levothyroxine Sodium 50 Mcg Tablet) 50 mcg PO DAILY@0600 [facility] Last Admin: 02/07/25 05:09 Dose: 50 mcg Lidocaine/Diphenhydr/Alum/Mg/Simeth (Mag&Al/Sim/Diphenhyd/Lidocaine 10 Ml Oral.Susp) 10 ml PO Q6H PRN; Protocol PRN Reason: Painful Gums Last Admin: 08/26/24 13:38 Dose: 10 ml Memantine (Memantine Hcl 5 Mg Tablet) 5 mg PO BID [facility] Last Admin: 02/07/25 08:37 Dose: 5 mg Olanzapine (Olanzapine Odt 10 Mg Tab.Rapdis) 5 mg TRANSLINGU Q6H PRN PRN Reason: Agitation Last Admin: 01/03/25 08:40 Dose: 5 mg Polyethylene Glycol (Polyethylene Glycol 3350 17 Gm Powd.Pack) 17 gm PO DAILY PRN PRN Reason: constipation Senna/Docusate Sodium (Sennosides/Docusate Sodium Tablet) 1 tab PO BID [facility] Last Admin: 02/07/25 08:37 Dose: 1 tab Vitamin D (Cholecalciferol (Vitamin D3) 25 Mcg Tablet) 50 mcg PO DAILY [facility] Last Admin: 02/07/25 08:37 Dose: 50 mcg Allergies Allergies Allergy/AdvReac Type Severity Reaction Status Date / Time meperidine (From Demerol) AdvReac Intermediate Rash Verified 08/23/24 19:34 morphine AdvReac Intermediate Rash Verified 08/23/24 19:35 Sulfa (Sulfonamide AdvReac Intermediate Rash Verified 08/23/24 19:36 Antibiotics) Assessment & Plan Assessment & Plan (1) Schizoaffective disorder: Status: Acute Code(s): F25.9 - Schizoaffective disorder, unspecified Plan Plan stable. continue current mgmt. awaiting placement. 12/10/24- no change CTP 12/11/24- patient flat but responsive- CTP 12/12: no change, continue current mgmt. 12/13: no change, denies any Sx or concerns. appears to be growing weaker due to spending so much time in bed, per OT; pt was encouraged by OT to be up and about more. 12/14: no change. continue current mgmt. 12/15 continue tx . 12/16 continue tx. 12/17: Continue current regimen and plans 12/18: Continue current regimen and plans 12/19: stable. continue current mgmt. 12/20: no change in presentation. continue current mgmt. 12/21: continues as per prior. awaiting placement. 12/22: continues as per prior. awaiting placement. 12/23 continue tx 12/24 continue tx. 12/25 ordered urologist consult for incontinence 12/27 continue tx. awaiting placement. 12/28/24: Put treatment team, patient is awaiting for placement, isolated in room, out for meals but not attended to groups today. Flat affect, mild depressed, no side effects. Continue to encourage groups and out more on the unit for activities. Patient has not seen by urologist for incontinence. 12/30/2024: No change 12/31: no changes 01/01: no changes 01/02 pt stable, awaiting placement. WIll order routine labs including cbc, cmp, TSH, 01/03 cbc unremarkable and improved, no longer showing anemia. CMP with no electrolyte imbalances. However, TSH low 0.07 on levothyroxine, hospitalist consult ordered (dose of levothyrozine adjusted). 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 01/04 continue tx. 01/05 continue tx. 01/06 continue tx. 01/07/25: flat affect, report mild depression and anxiety. Denies side effects. Denies safety concerns. Selt report slept only an hour last night. Back pain /1o but declines Tylenol. 01/08/25: No changes. Compliant with medication. No behavior. Isolated herself in room. Attempted to no groups, minimum peers and staff interaction. However pleasant upon approach 01/09 continue tx. 01/10 continue tx. 01/11 continue tx. 01/12 continue tx. 01/13 continue tx. 01/14: no change today 01/15: no change today 01/16 continue tx. 01/17 continue tx. 01/18 continue tx. 01/19 continue tx. 01/20: stable presentation. continue current mgmt. 01/21: Continue current management and treatment plan. 01/22: continue current management and treatment plan. 01/23/25: Not much change, continued to isolated herself in bed after meals. Reports attempted to 1 group this morning. Slept for 8 hours and was medication compliant. Reports feeling her toenails hurts. She let me check her feet even though say no but she given the feet to take the socks off to check on her toenails. Appear to have chronic fungal issue. Denies safety concerns. Continued to wait for placement. No for episode. Appeared to be clean. 01/24/25: Observed in the [place] with shoes on walking/pacing. Reports she went to 1 group this morning. Compliant with medication. No appetite or sleeping issues. She shares that she had 4 children living in different [place], last visit she has was a couple of weeks ago. Denies other safety concerns. Denied depression or anxiety. Self reported that she showered yesterday. Continued to encourage patient to be out more for groups. 01/26/25: Meet with patient in room, lying in bed, flat affect. Sleep and eat well. Out for meals but declined groups. Isolative, calm, pleasant and cooperative. No behavior or management issues, no safety concerns. Assisted with ADL's. 01/27/2025 Patient passive flat somewhat withdrawn spends much of her time in her room. Limited social engagement patient without complaint calm superficially pleasant. Continue discharge planning. No less restrictive placement currently available 01/28- CTP awaiting placement- 01/29 no change 01/30: no change in presentation or plan. awaiting placement. 01/31: as for yesterday. 02/01 continue tx. 02/03: doesn't want to go to facility in [place]. sleeping, eating well. no change in presentation. discharge thursday? 02/04: Continue current regimen and plans 02/05: Continue current plans and regimen. Discontinued Tylenol and started ibuprofen 200 mg p.r.n. 02/06: irritable re [place]. otherwise no change. continue current mgmt. may discharge tomorrow to [place]. 02/07: gratified to hear of week's delay in discharge. otherwise her usual presentation. continue current mgmt. Reason for continued inpatient stay Substantial Risk for: inability to function and rapid decompensation Time Spent With Patient Time: Total time managing care of this patient today ____ minutes.
[2025-02-07 19:39] VITALS: BP 107/53; PULSE 62; RESP 16; TEMP 36.1; O2SAT 96
[2025-02-08 08:25] VITALS: BP 118/76; PULSE 94; RESP 16; TEMP 36.2; O2SAT 96
[2025-02-08] MEDS: ARIPiprazole 30 MG TABLET PO (08:57)
--- NOTE | 2025-02-08 11:58 | P.PNPSI_ITS ---
Subjective Subjective Date of Service: 02/08/25 Reason For Visit: bipolar 1 disorder current or most recent epi Interim History: no change in presentation. doesn't want to go to [place]. expresses concern she will be responsible for paying a large sum to get there. per staff, pleasant, calm. still upset re discharge to [place]. slept 7 hours. Mental Status Exam Mental Status Exam Narrative: Appearance: own attire, adequate grooming and hygiene Behavior: passively cooperative Orientation: alert, grossly oriented to the encounter Attention: able to attend to a brief encounter Psychomotor Function: PMR Speech: loud Mood: OK Affect: constricted, hypo-intense Thought Process: linear Thought Content: no paranoia or delusions expressed Hallucinations: no AVH expressed delusions: none evinced Insight: impaired Judgment: impaired Impulsivity: none noted Diagnostics Vital Signs (24Hr): Vital Signs - 24 hr 02/07/25 19:39 02/08/25 08:25 Temperature 97 F 97.2 F Pulse Rate 62 94 Respiratory Rate 16 16 Blood Pressure 107/53 L 118/76 Pulse Oximetry 96 96 Oxygen Delivery Method Room Air Room Air BMI result Body Mass Index 23.9 Labs 01/03/25 07:32 01/03/25 07:32 Imaging Radiology Impressions: ITS Impressions Head CT 08/25/24 11:33 IMPRESSION: No acute intracranial abnormality. Electronically signed by: Cj Colunga MD 08/25/2024 12:12 PM EST RP KUB X-Ray 10/28/24 09:50 IMPRESSION: Abundant stool without intestinal obstruction pattern. Electronically signed by: Audie Uribe MD 10/28/2024 10:02 AM EDT RP Medications Medications Current Medications Aripiprazole (Aripiprazole 30 Mg Tablet) 30 mg PO DAILY [facility] Last Admin: 02/08/25 08:57 Dose: 30 mg Benzocaine (Throat Lozenge, Medicated Lozenge) 1 lozenge MUCOUS MEM Q1H PRN PRN Reason: Sore Throat Last Admin: 09/01/24 06:09 Dose: 1 lozenge Guaifenesin/Dextromethorphan (Guaifenesin Dm 200/20/10 Ml 10 Ml Syrup) 10 ml PO Q4H PRN PRN Reason: Cough Last Admin: 08/30/24 05:47 Dose: 10 ml Ibuprofen (Ibuprofen 200 Mg Tablet) 200 mg PO Q6H PRN PRN Reason: Pain, Moderate(Pain Scale 4-6) Last Admin: 02/05/25 11:13 Dose: 200 mg Levothyroxine Sodium (Levothyroxine Sodium 50 Mcg Tablet) 50 mcg PO DAILY@0600 [facility] Last Admin: 02/08/25 05:09 Dose: 50 mcg Lidocaine/Diphenhydr/Alum/Mg/Simeth (Mag&Al/Sim/Diphenhyd/Lidocaine 10 Ml Oral.Susp) 10 ml PO Q6H PRN; Protocol PRN Reason: Painful Gums Last Admin: 08/26/24 13:38 Dose: 10 ml Memantine (Memantine Hcl 5 Mg Tablet) 5 mg PO BID [facility] Last Admin: 02/08/25 08:58 Dose: 5 mg Olanzapine (Olanzapine Odt 10 Mg Tab.Rapdis) 5 mg TRANSLINGU Q6H PRN PRN Reason: Agitation Last Admin: 01/03/25 08:40 Dose: 5 mg Polyethylene Glycol (Polyethylene Glycol 3350 17 Gm Powd.Pack) 17 gm PO DAILY PRN PRN Reason: constipation Senna/Docusate Sodium (Sennosides/Docusate Sodium Tablet) 1 tab PO BID [facility] Last Admin: 02/08/25 08:57 Dose: 1 tab Vitamin D (Cholecalciferol (Vitamin D3) 25 Mcg Tablet) 50 mcg PO DAILY [facility] Last Admin: 02/08/25 08:56 Dose: 50 mcg Allergies Allergies Allergy/AdvReac Type Severity Reaction Status Date / Time meperidine (From Demerol) AdvReac Intermediate Rash Verified 08/23/24 19:34 morphine AdvReac Intermediate Rash Verified 08/23/24 19:35 Sulfa (Sulfonamide AdvReac Intermediate Rash Verified 08/23/24 19:36 Antibiotics) Assessment & Plan Assessment & Plan (1) Schizoaffective disorder: Status: Acute Code(s): F25.9 - Schizoaffective disorder, unspecified Plan Plan stable. continue current mgmt. awaiting placement. 12/10/24- no change CTP 12/11/24- patient flat but responsive- CTP 12/12: no change, continue current mgmt. 12/13: no change, denies any Sx or concerns. appears to be growing weaker due to spending so much time in bed, per OT; pt was encouraged by OT to be up and about more. 12/14: no change. continue current mgmt. 12/15 continue tx . 12/16 continue tx. 12/17: Continue current regimen and plans 12/18: Continue current regimen and plans 12/19: stable. continue current mgmt. 12/20: no change in presentation. continue current mgmt. 12/21: continues as per prior. awaiting placement. 12/22: continues as per prior. awaiting placement. 12/23 continue tx 12/24 continue tx. 12/25 ordered urologist consult for incontinence 12/27 continue tx. awaiting placement. 12/28/24: Put treatment team, patient is awaiting for placement, isolated in room, out for meals but not attended to groups today. Flat affect, mild depressed, no side effects. Continue to encourage groups and out more on the unit for activities. Patient has not seen by urologist for incontinence. 12/30/2024: No change 12/31: no changes 01/01: no changes 01/02 pt stable, awaiting placement. WIll order routine labs including cbc, cmp, TSH, 01/03 cbc unremarkable and improved, no longer showing anemia. CMP with no electrolyte imbalances. However, TSH low 0.07 on levothyroxine, hospitalist consult ordered (dose of levothyrozine adjusted). 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 01/04 continue tx. 01/05 continue tx. 01/06 continue tx. 01/07/25: flat affect, report mild depression and anxiety. Denies side effects. Denies safety concerns. Selt report slept only an hour last night. Back pain /o but declines Tylenol. 01/08/25: No changes. Compliant with medication. No behavior. Isolated herself in room. Attempted to no groups, minimum peers and staff interaction. However pleasant upon approach 01/09 continue tx. 01/10 continue tx. 01/11 continue tx. 01/12 continue tx. 01/13 continue tx. 01/14: no change today 01/15: no change today 01/16 continue tx. 01/17 continue tx. 01/18 continue tx. 01/19 continue tx. 01/20: stable presentation. continue current mgmt. 01/21: Continue current management and treatment plan. 01/22: continue current management and treatment plan. 01/23/25: Not much change, continued to isolated herself in bed after meals. Reports attempted to 1 group this morning. Slept for 8 hours and was medication compliant. Reports feeling her toenails hurts. She let me check her feet even though say no but she given the feet to take the socks off to check on her toenails. Appear to have chronic fungal issue. Denies safety concerns. Continued to wait for placement. No for episode. Appeared to be clean. 01/24/25: Observed in the [place] with shoes on walking/pacing. Reports she went to 1 group this morning. Compliant with medication. No appetite or sleeping issues. She shares that she had 4 children living in different [place], last visit she has was a couple of weeks ago. Denies other safety concerns. Denied depression or anxiety. Self reported that she showered yesterday. Continued to encourage patient to be out more for groups. 01/26/25: Meet with patient in room, lying in bed, flat affect. Sleep and eat well. Out for meals but declined groups. Isolative, calm, pleasant and cooperative. No behavior or management issues, no safety concerns. Assisted with ADL's. 01/27/2025 Patient passive flat somewhat withdrawn spends much of her time in her room. Limited social engagement patient without complaint calm superficially pleasant. Continue discharge planning. No less restrictive placement currently available 01/28- CTP awaiting placement- 01/29 no change 01/30: no change in presentation or plan. awaiting placement. 01/31: as for yesterday. 02/01 continue tx. 02/03: doesn't want to go to facility in [place]. sleeping, eating well. no change in presentation. discharge thursday? 02/04: Continue current regimen and plans 02/05: Continue current plans and regimen. Discontinued Tylenol and started ibuprofen 200 mg p.r.n. 02/06: irritable re [place]. otherwise no change. continue current mgmt. may discharge tomorrow to [place]. 02/07: gratified to hear of week's delay in discharge. otherwise her usual presentation. continue current mgmt. 02/08: no change in presentation. stable, no behavioral issues. Reason for continued inpatient stay Substantial Risk for: inability to function Time Spent With Patient Time: Total time managing care of this patient today ____ minutes.
[2025-02-08 20:00] VITALS: BP 113/60; PULSE 77; RESP 16; TEMP 36.4; O2SAT 96
[2025-02-09 07:50] VITALS: BP 111/75; PULSE 80; RESP 18; TEMP 36.8; O2SAT 96
[2025-02-09] MEDS: ARIPiprazole 30 MG TABLET PO (08:47)
--- NOTE | 2025-02-09 12:34 | HO.PSYCHPN ---
Subjective Subjective Date of Service: 02/09/25 Reason For Visit: bipolar 1 disorder current or most recent epi Interim History: no change in presentation. per staff, brighter, yet constricted. slept 8 hours. Mental Status Exam Mental Status Exam Narrative: Appearance: own attire, adequate grooming and hygiene Behavior: passively cooperative Orientation: alert, grossly oriented to the encounter Attention: able to attend to a brief encounter Psychomotor Function: PMR Speech: loud Mood: OK Affect: constricted, hypo-intense Thought Process: linear Thought Content: no paranoia or delusions expressed Hallucinations: no AVH expressed delusions: none evinced Insight: impaired Judgment: impaired Impulsivity: none noted Diagnostics Vital Signs (24Hr): Vital Signs - 24 hr 02/08/25 20:00 02/09/25 07:50 Temperature 97.6 F 98.2 F Pulse Rate 77 80 Respiratory Rate 16 18 Blood Pressure 113/60 111/75 Pulse Oximetry 96 96 Oxygen Delivery Method Room Air Room Air BMI result Body Mass Index 23.9 Labs 01/03/25 07:32 01/03/25 07:32 Imaging Radiology Impressions: ITS Impressions Head CT 08/25/24 11:33 IMPRESSION: No acute intracranial abnormality. Electronically signed by: Cj Colunga MD 08/25/2024 12:12 PM EST RP KUB X-Ray 10/28/24 09:50 IMPRESSION: Abundant stool without intestinal obstruction pattern. Electronically signed by: Audie Uribe MD 10/28/2024 10:02 AM EDT RP Medications Medications Current Medications Aripiprazole (Aripiprazole 30 Mg Tablet) 30 mg PO DAILY [facility] Last Admin: 02/09/25 08:47 Dose: 30 mg Benzocaine (Throat Lozenge, Medicated Lozenge) 1 lozenge MUCOUS MEM Q1H PRN PRN Reason: Sore Throat Last Admin: 09/01/24 06:09 Dose: 1 lozenge Guaifenesin/Dextromethorphan (Guaifenesin Dm 200/20/10 Ml 10 Ml Syrup) 10 ml PO Q4H PRN PRN Reason: Cough Last Admin: 08/30/24 05:47 Dose: 10 ml Ibuprofen (Ibuprofen 200 Mg Tablet) 200 mg PO Q6H PRN PRN Reason: Pain, Moderate(Pain Scale 4-6) Last Admin: 02/05/25 11:13 Dose: 200 mg Levothyroxine Sodium (Levothyroxine Sodium 50 Mcg Tablet) 50 mcg PO DAILY@0600 [facility] Last Admin: 02/09/25 05:56 Dose: 50 mcg Lidocaine/Diphenhydr/Alum/Mg/Simeth (Mag&Al/Sim/Diphenhyd/Lidocaine 10 Ml Oral.Susp) 10 ml PO Q6H PRN; Protocol PRN Reason: Painful Gums Last Admin: 08/26/24 13:38 Dose: 10 ml Memantine (Memantine Hcl 5 Mg Tablet) 5 mg PO BID [facility] Last Admin: 02/09/25 08:47 Dose: 5 mg Olanzapine (Olanzapine Odt 10 Mg Tab.Rapdis) 5 mg TRANSLINGU Q6H PRN PRN Reason: Agitation Last Admin: 01/03/25 08:40 Dose: 5 mg Polyethylene Glycol (Polyethylene Glycol 3350 17 Gm Powd.Pack) 17 gm PO DAILY PRN PRN Reason: constipation Senna/Docusate Sodium (Sennosides/Docusate Sodium Tablet) 1 tab PO BID [facility] Last Admin: 02/09/25 08:47 Dose: 1 tab Vitamin D (Cholecalciferol (Vitamin D3) 25 Mcg Tablet) 50 mcg PO DAILY [facility] Last Admin: 02/09/25 08:47 Dose: 50 mcg Allergies Allergies Allergy/AdvReac Type Severity Reaction Status Date / Time meperidine (From Demerol) AdvReac Intermediate Rash Verified 08/23/24 19:34 morphine AdvReac Intermediate Rash Verified 08/23/24 19:35 Sulfa (Sulfonamide AdvReac Intermediate Rash Verified 08/23/24 19:36 Antibiotics) Assessment & Plan Assessment & Plan (1) Schizoaffective disorder: Status: Acute Code(s): F25.9 - Schizoaffective disorder, unspecified Plan Plan stable. continue current mgmt. awaiting placement. 12/10/24- no change CTP 12/11/24- patient flat but responsive- CTP 12/12: no change, continue current mgmt. 12/13: no change, denies any Sx or concerns. appears to be growing weaker due to spending so much time in bed, per OT; pt was encouraged by OT to be up and about more. 12/14: no change. continue current mgmt. 12/15 continue tx . 12/16 continue tx. 12/17: Continue current regimen and plans 12/18: Continue current regimen and plans 12/19: stable. continue current mgmt. 12/20: no change in presentation. continue current mgmt. 12/21: continues as per prior. awaiting placement. 12/22: continues as per prior. awaiting placement. 12/23 continue tx 12/24 continue tx. 12/25 ordered urologist consult for incontinence 12/27 continue tx. awaiting placement. 12/28/24: Put treatment team, patient is awaiting for placement, isolated in room, out for meals but not attended to groups today. Flat affect, mild depressed, no side effects. Continue to encourage groups and out more on the unit for activities. Patient has not seen by urologist for incontinence. 12/30/2024: No change 12/31: no changes 01/01: no changes 01/02 pt stable, awaiting placement. WIll order routine labs including cbc, cmp, TSH, 01/03 cbc unremarkable and improved, no longer showing anemia. CMP with no electrolyte imbalances. However, TSH low 0.07 on levothyroxine, hospitalist consult ordered (dose of levothyrozine adjusted). 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 01/04 continue tx. 01/05 continue tx. 01/06 continue tx. 01/07/25: flat affect, report mild depression and anxiety. Denies side effects. Denies safety concerns. Selt report slept only an hour last night. Back pain 5/1o but declines Tylenol. 01/08/25: No changes. Compliant with medication. No behavior. Isolated herself in room. Attempted to no groups, minimum peers and staff interaction. However pleasant upon approach 01/09 continue tx. 01/10 continue tx. 01/11 continue tx. 01/12 continue tx. 01/13 continue tx. 01/14: no change today 01/15: no change today 01/16 continue tx. 01/17 continue tx. 01/18 continue tx. 01/19 continue tx. 01/20: stable presentation. continue current mgmt. 01/21: Continue current management and treatment plan. 01/22: continue current management and treatment plan. 01/23/25: Not much change, continued to isolated herself in bed after meals. Reports attempted to 1 group this morning. Slept for 8 hours and was medication compliant. Reports feeling her toenails hurts. She let me check her feet even though say no but she given the feet to take the socks off to check on her toenails. Appear to have chronic fungal issue. Denies safety concerns. Continued to wait for placement. No for episode. Appeared to be clean. 01/24/25: Observed in the [place] with shoes on walking/pacing. Reports she went to 1 group this morning. Compliant with medication. No appetite or sleeping issues. She shares that she had 4 children living in different [place], last visit she has was a couple of weeks ago. Denies other safety concerns. Denied depression or anxiety. Self reported that she showered yesterday. Continued to encourage patient to be out more for groups. 01/26/25: Meet with patient in room, lying in bed, flat affect. Sleep and eat well. Out for meals but declined groups. Isolative, calm, pleasant and cooperative. No behavior or management issues, no safety concerns. Assisted with ADL's. 01/27/2025 Patient passive flat somewhat withdrawn spends much of her time in her room. Limited social engagement patient without complaint calm superficially pleasant. Continue discharge planning. No less restrictive placement currently available 01/28- CTP awaiting placement- 01/29 no change 01/30: no change in presentation or plan. awaiting placement. 01/31: as for yesterday. 02/01 continue tx. 02/03: doesn't want to go to facility in [place]. sleeping, eating well. no change in presentation. discharge thursday? 02/04: Continue current regimen and plans 02/05: Continue current plans and regimen. Discontinued Tylenol and started ibuprofen 200 mg p.r.n. 02/06: irritable re [place]. otherwise no change. continue current mgmt. may discharge tomorrow to [place]. 02/07: gratified to hear of week's delay in discharge. otherwise her usual presentation. continue current mgmt. 02/08: no change in presentation. stable, no behavioral issues. 02/09: no change in presentation. continue current mgmt. dispo next week. Reason for continued inpatient stay Substantial Risk for: inability to function Time Spent With Patient Time: Total time managing care of this patient today ____ minutes.
[2025-02-09 20:00] VITALS: BP 116/60; PULSE 74; RESP 16; TEMP 36.7; O2SAT 96
[2025-02-10 08:25] VITALS: BP 138/67; PULSE 95; RESP 18; TEMP 36.3; O2SAT 98
[2025-02-10] MEDS: ARIPiprazole 30 MG TABLET PO (09:17)
--- NOTE | 2025-02-10 12:23 | P.PNPSI_ITS ---
Subjective Subjective Date of Service: 02/10/25 Reason For Visit: bipolar 1 disorder current or most recent epi Interim History: no change in presentation. no content related to discharge next week. per staff, flat, visible. eating well. taking meds. isolative. no issues. Mental Status Exam Mental Status Exam Narrative: Appearance: own attire, adequate grooming and hygiene Behavior: passively cooperative Orientation: alert, grossly oriented to the encounter Attention: able to attend to a brief encounter Psychomotor Function: PMR Speech: loud Mood: all right Affect: constricted, hypo-intense Thought Process: linear Thought Content: no paranoia or delusions expressed Hallucinations: no AVH expressed delusions: none evinced Insight: impaired Judgment: impaired Impulsivity: none noted Diagnostics Vital Signs (24Hr): Vital Signs - 24 hr 02/09/25 20:00 02/10/25 08:25 Temperature 98.1 F 97.3 F Pulse Rate 74 95 Respiratory Rate 16 18 Blood Pressure 116/60 138/67 Pulse Oximetry 96 98 Oxygen Delivery Method Room Air Room Air BMI result Body Mass Index 23.9 Labs 01/03/25 07:32 01/03/25 07:32 Imaging Radiology Impressions: ITS Impressions Head CT 08/25/24 11:33 IMPRESSION: No acute intracranial abnormality. Electronically signed by: Cj Colunga MD 08/25/2024 12:12 PM EST RP KUB X-Ray 10/28/24 09:50 IMPRESSION: Abundant stool without intestinal obstruction pattern. Electronically signed by: Audie Uribe MD 10/28/2024 10:02 AM EDT RP Medications Medications Current Medications Aripiprazole (Aripiprazole 30 Mg Tablet) 30 mg PO DAILY [facility] Last Admin: 02/10/25 09:17 Dose: 30 mg Benzocaine (Throat Lozenge, Medicated Lozenge) 1 lozenge MUCOUS MEM Q1H PRN PRN Reason: Sore Throat Last Admin: 09/01/24 06:09 Dose: 1 lozenge Guaifenesin/Dextromethorphan (Guaifenesin Dm 200/20/10 Ml 10 Ml Syrup) 10 ml PO Q4H PRN PRN Reason: Cough Last Admin: 08/30/24 05:47 Dose: 10 ml Ibuprofen (Ibuprofen 200 Mg Tablet) 200 mg PO Q6H PRN PRN Reason: Pain, Moderate(Pain Scale 4-6) Last Admin: 02/05/25 11:13 Dose: 200 mg Levothyroxine Sodium (Levothyroxine Sodium 50 Mcg Tablet) 50 mcg PO DAILY@0600 [facility] Last Admin: 02/10/25 05:52 Dose: 50 mcg Lidocaine/Diphenhydr/Alum/Mg/Simeth (Mag&Al/Sim/Diphenhyd/Lidocaine 10 Ml Oral.Susp) 10 ml PO Q6H PRN; Protocol PRN Reason: Painful Gums Last Admin: 08/26/24 13:38 Dose: 10 ml Memantine (Memantine Hcl 5 Mg Tablet) 5 mg PO BID [facility] Last Admin: 02/10/25 09:17 Dose: 5 mg Olanzapine (Olanzapine Odt 10 Mg Tab.Rapdis) 5 mg TRANSLINGU Q6H PRN PRN Reason: Agitation Last Admin: 01/03/25 08:40 Dose: 5 mg Polyethylene Glycol (Polyethylene Glycol 3350 17 Gm Powd.Pack) 17 gm PO DAILY PRN PRN Reason: constipation Senna/Docusate Sodium (Sennosides/Docusate Sodium Tablet) 1 tab PO BID [facility] Last Admin: 02/10/25 09:17 Dose: 1 tab Vitamin D (Cholecalciferol (Vitamin D3) 25 Mcg Tablet) 50 mcg PO DAILY [facility] Last Admin: 02/10/25 09:16 Dose: 50 mcg Allergies Allergies Allergy/AdvReac Type Severity Reaction Status Date / Time meperidine (From Demerol) AdvReac Intermediate Rash Verified 08/23/24 19:34 morphine AdvReac Intermediate Rash Verified 08/23/24 19:35 Sulfa (Sulfonamide AdvReac Intermediate Rash Verified 08/23/24 19:36 Antibiotics) Assessment & Plan Assessment & Plan (1) Schizoaffective disorder: Status: Acute Code(s): F25.9 - Schizoaffective disorder, unspecified Plan Plan stable. continue current mgmt. awaiting placement. 12/10/24- no change CTP 12/11/24- patient flat but responsive- CTP 12/12: no change, continue current mgmt. 12/13: no change, denies any Sx or concerns. appears to be growing weaker due to spending so much time in bed, per OT; pt was encouraged by OT to be up and about more. 12/14: no change. continue current mgmt. 12/15 continue tx . 12/16 continue tx. 12/17: Continue current regimen and plans 12/18: Continue current regimen and plans 12/19: stable. continue current mgmt. 12/20: no change in presentation. continue current mgmt. 12/21: continues as per prior. awaiting placement. 12/22: continues as per prior. awaiting placement. 12/23 continue tx 12/24 continue tx. 12/25 ordered urologist consult for incontinence 12/27 continue tx. awaiting placement. 12/28/24: Put treatment team, patient is awaiting for placement, isolated in room, out for meals but not attended to groups today. Flat affect, mild depressed, no side effects. Continue to encourage groups and out more on the unit for activities. Patient has not seen by urologist for incontinence. 12/30/2024: No change 12/31: no changes 01/01: no changes 01/02 pt stable, awaiting placement. WIll order routine labs including cbc, cmp, TSH, 01/03 cbc unremarkable and improved, no longer showing anemia. CMP with no electrolyte imbalances. However, TSH low 0.07 on levothyroxine, hospitalist consult ordered (dose of levothyrozine adjusted). 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 01/04 continue tx. 01/05 continue tx. 01/06 continue tx. 01/07/25: flat affect, report mild depression and anxiety. Denies side effects. Denies safety concerns. Selt report slept only an hour last night. Back pain 5/1o but declines Tylenol. 01/08/25: No changes. Compliant with medication. No behavior. Isolated herself in room. Attempted to no groups, minimum peers and staff interaction. However pleasant upon approach 01/09 continue tx. 01/10 continue tx. 01/11 continue tx. 01/12 continue tx. 01/13 continue tx. 01/14: no change today 01/15: no change today 01/16 continue tx. 01/17 continue tx. 01/18 continue tx. 01/19 continue tx. 01/20: stable presentation. continue current mgmt. 01/21: Continue current management and treatment plan. 01/22: continue current management and treatment plan. 01/23/25: Not much change, continued to isolated herself in bed after meals. Reports attempted to 1 group this morning. Slept for 8 hours and was medication compliant. Reports feeling her toenails hurts. She let me check her feet even though say no but she given the feet to take the socks off to check on her toenails. Appear to have chronic fungal issue. Denies safety concerns. Continued to wait for placement. No for episode. Appeared to be clean. 01/24/25: Observed in the [place] with shoes on walking/pacing. Reports she went to 1 group this morning. Compliant with medication. No appetite or sleeping issues. She shares that she had 4 children living in different [place], last visit she has was a couple of weeks ago. Denies other safety concerns. Denied depression or anxiety. Self reported that she showered yesterday. Continued to encourage patient to be out more for groups. 01/26/25: Meet with patient in room, lying in bed, flat affect. Sleep and eat well. Out for meals but declined groups. Isolative, calm, pleasant and cooperative. No behavior or management issues, no safety concerns. Assisted with ADL's. 01/27/2025 Patient passive flat somewhat withdrawn spends much of her time in her room. Limited social engagement patient without complaint calm superficially pleasant. Continue discharge planning. No less restrictive placement currently available 01/28- CTP awaiting placement- 01/29 no change 01/30: no change in presentation or plan. awaiting placement. 01/31: as for yesterday. 02/01 continue tx. 02/03: doesn't want to go to facility in [place]. sleeping, eating well. no change in presentation. discharge thursday? 02/04: Continue current regimen and plans 02/05: Continue current plans and regimen. Discontinued Tylenol and started ibuprofen 200 mg p.r.n. 02/06: irritable re [place]. otherwise no change. continue current mgmt. may discharge tomorrow to [place]. 02/07: gratified to hear of week's delay in discharge. otherwise her usual presentation. continue current mgmt. 02/08: no change in presentation. stable, no behavioral issues. 02/09: no change in presentation. continue current mgmt. dispo next week. 02/10: no change in presentation. continue current mgmt. dispo next week. Reason for continued inpatient stay Substantial Risk for: inability to function and rapid decompensation Time Spent With Patient Time: Total time managing care of this patient today ____ minutes.
[2025-02-10 20:00] VITALS: BP 96/54; PULSE 68; RESP 18; TEMP 36.6; O2SAT 98
[2025-02-11 07:55] VITALS: BP 118/67; PULSE 72; RESP 18; TEMP 36.6; O2SAT 98
[2025-02-11] MEDS: ARIPiprazole 30 MG TABLET PO (08:39)
--- NOTE | 2025-02-11 10:10 | HO.PSYCHPN ---
Subjective Subjective Date of Service: 02/11/25 Reason For Visit: bipolar 1 disorder current or most recent epi Interim History: no change in presentation. per staff, same. Mental Status Exam Mental Status Exam Narrative: Appearance: own attire, adequate grooming and hygiene Behavior: passively cooperative Orientation: alert, grossly oriented to the encounter Attention: able to attend to a brief encounter Psychomotor Function: PMR Speech: loud Mood: all right Affect: constricted, hypo-intense Thought Process: linear Thought Content: no paranoia or delusions expressed Hallucinations: no AVH expressed delusions: none evinced Insight: impaired Judgment: impaired Impulsivity: none noted Diagnostics Vital Signs (24Hr): Vital Signs - 24 hr 02/10/25 20:00 Temperature 97.9 F Pulse Rate 68 Respiratory Rate 18 Blood Pressure 96/54 L Pulse Oximetry 98 Oxygen Delivery Method Room Air BMI result Body Mass Index 23.9 Labs 01/03/25 07:32 01/03/25 07:32 Imaging Radiology Impressions: ITS Impressions Head CT 08/25/24 11:33 IMPRESSION: No acute intracranial abnormality. Electronically signed by: Cj Colunga MD 08/25/2024 12:12 PM EST RP KUB X-Ray 10/28/24 09:50 IMPRESSION: Abundant stool without intestinal obstruction pattern. Electronically signed by: Audie Uribe MD 10/28/2024 10:02 AM EDT RP Medications Medications Current Medications Aripiprazole (Aripiprazole 30 Mg Tablet) 30 mg PO DAILY [facility] Last Admin: 02/11/25 08:39 Dose: 30 mg Benzocaine (Throat Lozenge, Medicated Lozenge) 1 lozenge MUCOUS MEM Q1H PRN PRN Reason: Sore Throat Last Admin: 09/01/24 06:09 Dose: 1 lozenge Guaifenesin/Dextromethorphan (Guaifenesin Dm 200/20/10 Ml 10 Ml Syrup) 10 ml PO Q4H PRN PRN Reason: Cough Last Admin: 08/30/24 05:47 Dose: 10 ml Ibuprofen (Ibuprofen 200 Mg Tablet) 200 mg PO Q6H PRN PRN Reason: Pain, Moderate(Pain Scale 4-6) Last Admin: 02/05/25 11:13 Dose: 200 mg Levothyroxine Sodium (Levothyroxine Sodium 50 Mcg Tablet) 50 mcg PO DAILY@0600 [facility] Last Admin: 02/11/25 06:03 Dose: 50 mcg Lidocaine/Diphenhydr/Alum/Mg/Simeth (Mag&Al/Sim/Diphenhyd/Lidocaine 10 Ml Oral.Susp) 10 ml PO Q6H PRN; Protocol PRN Reason: Painful Gums Last Admin: 08/26/24 13:38 Dose: 10 ml Memantine (Memantine Hcl 5 Mg Tablet) 5 mg PO BID [facility] Last Admin: 02/11/25 08:39 Dose: 5 mg Olanzapine (Olanzapine Odt 10 Mg Tab.Rapdis) 5 mg TRANSLINGU Q6H PRN PRN Reason: Agitation Last Admin: 01/03/25 08:40 Dose: 5 mg Polyethylene Glycol (Polyethylene Glycol 3350 17 Gm Powd.Pack) 17 gm PO DAILY PRN PRN Reason: constipation Senna/Docusate Sodium (Sennosides/Docusate Sodium Tablet) 1 tab PO BID [facility] Last Admin: 02/11/25 08:39 Dose: 1 tab Vitamin D (Cholecalciferol (Vitamin D3) 25 Mcg Tablet) 50 mcg PO DAILY [facility] Last Admin: 02/11/25 08:39 Dose: 50 mcg Allergies Allergies Allergy/AdvReac Type Severity Reaction Status Date / Time meperidine (From Demerol) AdvReac Intermediate Rash Verified 08/23/24 19:34 morphine AdvReac Intermediate Rash Verified 08/23/24 19:35 Sulfa (Sulfonamide AdvReac Intermediate Rash Verified 08/23/24 19:36 Antibiotics) Assessment & Plan Assessment & Plan (1) Schizoaffective disorder: Status: Acute Code(s): F25.9 - Schizoaffective disorder, unspecified Plan Plan stable. continue current mgmt. awaiting placement. 12/10/24- no change CTP 12/11/24- patient flat but responsive- CTP 12/12: no change, continue current mgmt. 12/13: no change, denies any Sx or concerns. appears to be growing weaker due to spending so much time in bed, per OT; pt was encouraged by OT to be up and about more. 12/14: no change. continue current mgmt. 12/15 continue tx . 12/16 continue tx. 12/17: Continue current regimen and plans 12/18: Continue current regimen and plans 12/19: stable. continue current mgmt. 12/20: no change in presentation. continue current mgmt. 12/21: continues as per prior. awaiting placement. 12/22: continues as per prior. awaiting placement. 12/23 continue tx 12/24 continue tx. 12/25 ordered urologist consult for incontinence 12/27 continue tx. awaiting placement. 12/28/24: Put treatment team, patient is awaiting for placement, isolated in room, out for meals but not attended to groups today. Flat affect, mild depressed, no side effects. Continue to encourage groups and out more on the unit for activities. Patient has not seen by urologist for incontinence. 12/30/2024: No change 12/31: no changes 01/01: no changes 01/02 pt stable, awaiting placement. WIll order routine labs including cbc, cmp, TSH, 01/03 cbc unremarkable and improved, no longer showing anemia. CMP with no electrolyte imbalances. However, TSH low 0.07 on levothyroxine, hospitalist consult ordered (dose of levothyrozine adjusted). 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 01/04 continue tx. 01/05 continue tx. 01/06 continue tx. 01/07/25: flat affect, report mild depression and anxiety. Denies side effects. Denies safety concerns. Selt report slept only an hour last night. Back pain 5/1o but declines Tylenol. 01/08/25: No changes. Compliant with medication. No behavior. Isolated herself in room. Attempted to no groups, minimum peers and staff interaction. However pleasant upon approach 01/09 continue tx. 01/10 continue tx. 01/11 continue tx. 01/12 continue tx. 01/13 continue tx. 01/14: no change today 01/15: no change today 01/16 continue tx. 01/17 continue tx. 01/18 continue tx. 01/19 continue tx. 01/20: stable presentation. continue current mgmt. 01/21: Continue current management and treatment plan. 01/22: continue current management and treatment plan. 01/23/25: Not much change, continued to isolated herself in bed after meals. Reports attempted to 1 group this morning. Slept for 8 hours and was medication compliant. Reports feeling her toenails hurts. She let me check her feet even though say no but she given the feet to take the socks off to check on her toenails. Appear to have chronic fungal issue. Denies safety concerns. Continued to wait for placement. No for episode. Appeared to be clean. 01/24/25: Observed in the [place] with shoes on walking/pacing. Reports she went to 1 group this morning. Compliant with medication. No appetite or sleeping issues. She shares that she had 4 children living in different [place], last visit she has was a couple of weeks ago. Denies other safety concerns. Denied depression or anxiety. Self reported that she showered yesterday. Continued to encourage patient to be out more for groups. 01/26/25: Meet with patient in room, lying in bed, flat affect. Sleep and eat well. Out for meals but declined groups. Isolative, calm, pleasant and cooperative. No behavior or management issues, no safety concerns. Assisted with ADL's. 01/27/2025 Patient passive flat somewhat withdrawn spends much of her time in her room. Limited social engagement patient without complaint calm superficially pleasant. Continue discharge planning. No less restrictive placement currently available 01/28- CTP awaiting placement- 01/29 no change 01/30: no change in presentation or plan. awaiting placement. 01/31: as for yesterday. 02/01 continue tx. 02/03: doesn't want to go to facility in [place]. sleeping, eating well. no change in presentation. discharge thursday? 02/04: Continue current regimen and plans 02/05: Continue current plans and regimen. Discontinued Tylenol and started ibuprofen 200 mg p.r.n. 02/06: irritable re [place]. otherwise no change. continue current mgmt. may discharge tomorrow to [place]. 02/07: gratified to hear of week's delay in discharge. otherwise her usual presentation. continue current mgmt. 02/08: no change in presentation. stable, no behavioral issues. 02/09: no change in presentation. continue current mgmt. dispo next week. 02/10: no change in presentation. continue current mgmt. dispo next week. 02/11: no change in presentation. continue current mgmt. dispo next week. Reason for continued inpatient stay Substantial Risk for: inability to function Time Spent With Patient Time: Total time managing care of this patient today ____ minutes.
[2025-02-11 20:00] VITALS: BP 102/60; PULSE 60; RESP 18; TEMP 37; O2SAT 96
[2025-02-12 07:55] VITALS: BP 111/76; PULSE 86; RESP 18; TEMP 36.4; O2SAT 96
[2025-02-12] MEDS: ARIPiprazole 30 MG TABLET PO (08:14)
--- NOTE | 2025-02-12 13:32 | P.PNPSI_ITS ---
Subjective Subjective Date of Service: 02/12/25 Reason For Visit: bipolar 1 disorder current or most recent epi Interim History: on being asked how she is doing, explodes at MD, FULL OF ANXIETY! MD validates her emotions. per staff, no notable events or behaviors aside from sense that she is/will be trying to sabotage her discharge, talking about she is going to and is not feeling well. Mental Status Exam Mental Status Exam Narrative: Appearance: own attire, adequate grooming and hygiene Behavior: passively cooperative Orientation: alert, grossly oriented to the encounter Attention: able to attend to a brief encounter Psychomotor Function: PMR Speech: loud Mood: FULL OF ANXIETY! Affect: constricted, hypo-intense Thought Process: linear Thought Content: no paranoia or delusions expressed Hallucinations: no AVH expressed delusions: none evinced Insight: impaired Judgment: impaired Impulsivity: none noted Diagnostics Vital Signs (24Hr): Vital Signs - 24 hr 02/11/25 20:00 02/12/25 07:55 Temperature 98.6 F 97.5 F Pulse Rate 60 86 Respiratory Rate 18 18 Blood Pressure 102/60 111/76 Pulse Oximetry 96 96 Oxygen Delivery Method Room Air Room Air BMI result Body Mass Index 23.9 Labs 01/03/25 07:32 01/03/25 07:32 Imaging Radiology Impressions: ITS Impressions Head CT 08/25/24 11:33 IMPRESSION: No acute intracranial abnormality. Electronically signed by: Cj Colunga MD 08/25/2024 12:12 PM EST RP KUB X-Ray 10/28/24 09:50 IMPRESSION: Abundant stool without intestinal obstruction pattern. Electronically signed by: Audie Uribe MD 10/28/2024 10:02 AM EDT RP Medications Medications Current Medications Aripiprazole (Aripiprazole 30 Mg Tablet) 30 mg PO DAILY [facility] Last Admin: 02/12/25 08:14 Dose: 30 mg Benzocaine (Throat Lozenge, Medicated Lozenge) 1 lozenge MUCOUS MEM Q1H PRN PRN Reason: Sore Throat Last Admin: 09/01/24 06:09 Dose: 1 lozenge Guaifenesin/Dextromethorphan (Guaifenesin Dm 200/20/10 Ml 10 Ml Syrup) 10 ml PO Q4H PRN PRN Reason: Cough Last Admin: 08/30/24 05:47 Dose: 10 ml Ibuprofen (Ibuprofen 200 Mg Tablet) 200 mg PO Q6H PRN PRN Reason: Pain, Moderate(Pain Scale 4-6) Last Admin: 02/05/25 11:13 Dose: 200 mg Levothyroxine Sodium (Levothyroxine Sodium 50 Mcg Tablet) 50 mcg PO DAILY@0600 [facility] Last Admin: 02/12/25 06:27 Dose: 50 mcg Lidocaine/Diphenhydr/Alum/Mg/Simeth (Mag&Al/Sim/Diphenhyd/Lidocaine 10 Ml Oral.Susp) 10 ml PO Q6H PRN; Protocol PRN Reason: Painful Gums Last Admin: 08/26/24 13:38 Dose: 10 ml Memantine (Memantine Hcl 5 Mg Tablet) 5 mg PO BID [facility] Last Admin: 02/12/25 08:14 Dose: 5 mg Nystatin (Nystatin Powder 15 Gm Bottle) 1 appl TOPICAL BID [facility]; Protocol Last Admin: 02/12/25 11:27 Dose: 1 appl Olanzapine (Olanzapine Odt 10 Mg Tab.Rapdis) 5 mg TRANSLINGU Q6H PRN PRN Reason: Agitation Last Admin: 01/03/25 08:40 Dose: 5 mg Polyethylene Glycol (Polyethylene Glycol 3350 17 Gm Powd.Pack) 17 gm PO DAILY PRN PRN Reason: constipation Senna/Docusate Sodium (Sennosides/Docusate Sodium Tablet) 1 tab PO BID [facility] Last Admin: 02/12/25 08:14 Dose: 1 tab Vitamin D (Cholecalciferol (Vitamin D3) 25 Mcg Tablet) 50 mcg PO DAILY [facility] Last Admin: 02/12/25 08:14 Dose: 50 mcg Allergies Allergies Allergy/AdvReac Type Severity Reaction Status Date / Time meperidine (From Demerol) AdvReac Intermediate Rash Verified 08/23/24 19:34 morphine AdvReac Intermediate Rash Verified 08/23/24 19:35 Sulfa (Sulfonamide AdvReac Intermediate Rash Verified 08/23/24 19:36 Antibiotics) Assessment & Plan Assessment & Plan (1) Schizoaffective disorder: Status: Acute Code(s): F25.9 - Schizoaffective disorder, unspecified Plan Plan stable. continue current mgmt. awaiting placement. 12/10/24- no change CTP 12/11/24- patient flat but responsive- CTP 12/12: no change, continue current mgmt. 12/13: no change, denies any Sx or concerns. appears to be growing weaker due to spending so much time in bed, per OT; pt was encouraged by OT to be up and about more. 12/14: no change. continue current mgmt. 12/15 continue tx . 12/16 continue tx. 12/17: Continue current regimen and plans 12/18: Continue current regimen and plans 12/19: stable. continue current mgmt. 12/20: no change in presentation. continue current mgmt. 12/21: continues as per prior. awaiting placement. 12/22: continues as per prior. awaiting placement. 12/23 continue tx 12/24 continue tx. 12/25 ordered urologist consult for incontinence 12/27 continue tx. awaiting placement. 12/28/24: Put treatment team, patient is awaiting for placement, isolated in room, out for meals but not attended to groups today. Flat affect, mild depressed, no side effects. Continue to encourage groups and out more on the unit for activities. Patient has not seen by urologist for incontinence. 12/30/2024: No change 12/31: no changes 01/01: no changes 01/02 pt stable, awaiting placement. WIll order routine labs including cbc, cmp, TSH, 01/03 cbc unremarkable and improved, no longer showing anemia. CMP with no electrolyte imbalances. However, TSH low 0.07 on levothyroxine, hospitalist consult ordered (dose of levothyrozine adjusted). 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 01/04 continue tx. 01/05 continue tx. 01/06 continue tx. 01/07/25: flat affect, report mild depression and anxiety. Denies side effects. Denies safety concerns. Selt report slept only an hour last night. Back pain /1o but declines Tylenol. 01/08/25: No changes. Compliant with medication. No behavior. Isolated herself in room. Attempted to no groups, minimum peers and staff interaction. However pleasant upon approach 01/09 continue tx. 01/10 continue tx. 01/11 continue tx. 01/12 continue tx. 01/13 continue tx. 01/14: no change today 01/15: no change today 01/16 continue tx. 01/17 continue tx. 01/18 continue tx. 01/19 continue tx. 01/20: stable presentation. continue current mgmt. 01/21: Continue current management and treatment plan. 01/22: continue current management and treatment plan. 01/23/25: Not much change, continued to isolated herself in bed after meals. Reports attempted to 1 group this morning. Slept for 8 hours and was medication compliant. Reports feeling her toenails hurts. She let me check her feet even though say no but she given the feet to take the socks off to check on her toenails. Appear to have chronic fungal issue. Denies safety concerns. Continued to wait for placement. No for episode. Appeared to be clean. 01/24/25: Observed in the [place] with shoes on walking/pacing. Reports she went to 1 group this morning. Compliant with medication. No appetite or sleeping issues. She shares that she had 4 children living in different [place], last visit she has was a couple of weeks ago. Denies other safety concerns. Denied depression or anxiety. Self reported that she showered yesterday. Continued to encourage patient to be out more for groups. 01/26/25: Meet with patient in room, lying in bed, flat affect. Sleep and eat well. Out for meals but declined groups. Isolative, calm, pleasant and cooperative. No behavior or management issues, no safety concerns. Assisted with ADL's. 01/27/2025 Patient passive flat somewhat withdrawn spends much of her time in her room. Limited social engagement patient without complaint calm superficially pleasant. Continue discharge planning. No less restrictive placement currently available 01/28- CTP awaiting placement- 01/29 no change 01/30: no change in presentation or plan. awaiting placement. 01/31: as for yesterday. 02/01 continue tx. 02/03: doesn't want to go to facility in [place]. sleeping, eating well. no change in presentation. discharge thursday? 02/04: Continue current regimen and plans 02/05: Continue current plans and regimen. Discontinued Tylenol and started ibuprofen 200 mg p.r.n. 02/06: irritable re [place]. otherwise no change. continue current mgmt. may discharge tomorrow to [place]. 02/07: gratified to hear of week's delay in discharge. otherwise her usual presentation. continue current mgmt. 02/08: no change in presentation. stable, no behavioral issues. 02/09: no change in presentation. continue current mgmt. dispo next week. 02/10: no change in presentation. continue current mgmt. dispo next week. 02/11: no change in presentation. continue current mgmt. dispo next week. 02/12: states today she is FULL OF ANXIETY! otherwise as per usual. emotions are validated, plan to discharge thursday remains. Reason for continued inpatient stay Substantial Risk for: inability to function Time Spent With Patient Time: Total time managing care of this patient today ____ minutes.
[2025-02-12 20:00] VITALS: BP 108/51; PULSE 75; RESP 18; TEMP 36.8; O2SAT 98
[2025-02-13 08:00] VITALS: BP 130/69; PULSE 84; RESP 18; TEMP 36.8; O2SAT 98
[2025-02-13] MEDS: ARIPiprazole 30 MG TABLET PO (09:14)
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
[2025-02-13 20:00] VITALS: BP 103/62; PULSE 76; RESP 16; TEMP 36.5; O2SAT 96
[2025-02-14] MEDS: ARIPiprazole 30 MG TABLET PO (08:31)
== END 2025-02-14 10:45 | DRG 885 ==
PROVIDERS: Internal Medicine; Nurse Practitioner Family; Psychiatry & Neurology Psychiatry; Registered Nurse; Admitting Provider Social Worker; Visit Provider Social Worker
DX: F25.9 Schizoaffective disorder, unspecified (principal); E03.9 Hypothyroidism, unspecified; F03.90 Unspecified dementia, unspecified severity, without behavioral disturbance, psychotic disturbance, mood disturbance, and anxiety; E78.5 Hyperlipidemia, unspecified; B35.1 Tinea unguium; K59.00 Constipation, unspecified; K05.10 Chronic gingivitis, plaque induced; J10.1 Influenza due to other identified influenza virus with other respiratory manifestations; Z75.1 Person awaiting admission to adequate facility elsewhere; Z79.890 Hormone replacement therapy; Z79.899 Other long term (current) drug therapy
CPT/HCPCS: 0241U; 36415; 70450; 74018; 80048; 80053; 80061; 81001; 82607; 82746; 83036; 84439; 84443; 85025; 87086; 87633

== ENCOUNTER 2024-08-23 18:37 | Outpatient (BNV) | payer MEDICARE, MEDICAID, SELFPAY | END 2024-08-25 11:33 | PROVIDERS: Admitting Provider Social Worker; Visit Provider Radiology Diagnostic Radiology | DX: R41.81 Age-related cognitive decline (principal) | CPT/HCPCS: 70450 ==

== ENCOUNTER → 2024-08-23 18:37 | Outpatient (BNV) | payer MEDICARE, MEDICAID, SELFPAY | PROVIDERS: Admitting Provider Social Worker; Visit Provider Psychiatry & Neurology Psychiatry | DX: F25.0 Schizoaffective disorder, bipolar type (principal) | CPT/HCPCS: 99231; 99232 ==

== ENCOUNTER → 2024-08-23 18:37 | Outpatient (BNV) | payer MEDICARE, MEDICAID, SELFPAY | PROVIDERS: Admitting Provider Social Worker; Visit Provider Social Worker | DX: F25.0 Schizoaffective disorder, bipolar type (principal) | CPT/HCPCS: 90792; 99231; 99232 ==

== ENCOUNTER → 2024-08-23 18:37 | Outpatient (BNV) | payer MEDICARE, MEDICAID, SELFPAY | PROVIDERS: Admitting Provider Social Worker; Visit Provider Student in an Organized Health Care Education/Training Program | DX: Z00.8 Encounter for other general examination (principal) | CPT/HCPCS: 99222 ==